=== PATIENT | male | born 1950 | race Caucasian/White ===

== ENCOUNTER → 2018-05-16 08:10 | Outpatient (CLI) | payer MEDICARE, OTHER, SELFPAY ==
[2018-05-16 13:40] LABS: Basophils % 0.8 % (0.1-2.0); Eosinophils # 0.3 K/mm3 (0.0-0.4); Eosinophils % 6.3 % (0.1-12.0); Hematocrit 41.5 % (42.0-52.0); Hemoglobin 12.8 g/dL (14.1-18.0); Lymphocytes # 1.5 K/mm3 (0.7-4.5); Lymphocytes % 30.6 K/mm3 (10-50); Mean Corpuscular HGB Conc 30.9 g/dL (31.8-35.4); Mean Corpuscular Hemoglobin 28.5 pg (27.0-31.2); Mean Corpuscular Volume 92.4 fl (80-94); Mean Platelet Volume 8.2 fl (7.4-10.4); Monocytes # 0.3 K/mm3 (0.1-1.0); Monocytes % 5.4 % (1.7-9.3); Neutrophils # 2.8 K/mm3 (1.8-7.8); Platelet Count 259 K/mm3 (142-424); Red Blood Count 4.49 M/mm3 (4.60-6.20); White Blood Count 4.9 K/mm3 (4.8-10.8)
[2018-05-16 13:58] LABS: Hemoglobin A1C 8.1 % (0.0-7.0)
[2018-05-16 14:07] LABS: Alanine Aminotransferase 45 U/L (12-78); Albumin Level 3.7 gm/dL (3.4-5.0); Albumin/Globulin Ratio 1.4 (1.1-1.8); Alkaline Phosphatase 65 U/L (46-116); Anion Gap 15.9 mEq/L (5-15); Aspartate Amino Transferase 28 U/L (15-37); Bilirubin,Total 0.4 mg/dL (0.2-1.0); Blood Urea Nitrogen 22 mg/dL (7-18); Calcium 8.5 mg/dL (8.5-10.1); Carbon Dioxide 22 mmol/L (21.0-32.0); Chloride 105 mmol/L (98-107); Chol/HDL Ratio 4.2 (1-3.5); Cholesterol 171 mg/dL (140-200); Creatinine,Serum 1.57 mg/dL (0.70-1.30); Estimated Glomerular Filt Rate 44 ml/min (>60); GFR (African American) 53 ML/MIN (>60); Globulin 2.7 gm/dl (1.3-3.2); Glucose 154 mg/dL (74-106); HDL Cholesterol 41 mg/dL (27-67); LDL Cholesterol 110 mg/dL (0-130); Potassium 4.9 mmoL/L (3.5-5.1); Sodium 138 mmol/L (136-145); Thyroid Stimulating Hormone 2.06 uIU/ml (0.358-3.740); Total Protein,Serum 6.4 gm/dL (6.4-8.2); Triglycerides 102 mg/dL (30-200); Uric Acid 4.6 mg/dL (2.6-7.2); VLDL Cholesterol 20 mg/dL (0-40)
[2018-05-17 13:59] LABS: Microalbumin, Urine 47.1 ug/mL (Not Estab.)
== END ==
PROVIDERS: Visit Provider Nurse Practitioner Family
DX: E11.9 Type 2 diabetes mellitus without complications (principal); I10 Essential (primary) hypertension; M10.9 Gout, unspecified
CPT/HCPCS: 36415; 80053; 80061; 82043; 83036; 84443; 84550; 85025

== ENCOUNTER → 2018-12-11 08:43 | Outpatient (CLI) | payer MEDICARE, OTHER, SELFPAY ==
[2018-12-11 14:47] LABS: Basophils # 0.1 K/mm3 (0-0.2); Basophils % 0.8 % (0.1-2.0); Eosinophils # 0.3 K/mm3 (0.0-0.4); Eosinophils % 5.4 % (0.1-12.0); Hematocrit 42.4 % (42.0-52.0); Hemoglobin 13.8 g/dL (14.1-18.0); Lymphocytes # 1.9 K/mm3 (0.7-4.5); Lymphocytes % 34.2 % (10-50); Mean Corpuscular HGB Conc 32.6 g/dL (31.8-35.4); Mean Corpuscular Hemoglobin 29.9 pg (27.0-31.2); Mean Corpuscular Volume 91.8 fl (80-94); Mean Platelet Volume 8.6 fl (7.4-10.4); Monocytes # 0.3 K/mm3 (0.1-1.0); Monocytes % 5.8 % (1.7-9.3); Neutrophils % 53.6 % (37.0-80.0); Platelet Count 292 K/mm3 (142-424); Red Blood Count 4.62 M/mm3 (4.60-6.20); White Blood Count 5.6 K/mm3 (4.8-10.8)
[2018-12-11 15:12] LABS: Alanine Aminotransferase 44 U/L (12-78); Albumin Level 3.8 gm/dL (3.4-5.0); Albumin/Globulin Ratio 1.2 (1.1-1.8); Alkaline Phosphatase 73 U/L (46-116); Anion Gap 18.9 mEq/L (5-15); Aspartate Amino Transferase 21 U/L (15-37); Bilirubin,Total 0.6 mg/dL (0.2-1.0); Blood Urea Nitrogen 34 mg/dL (7-18); Calcium 9.4 mg/dL (8.5-10.1); Carbon Dioxide 23 mmol/L (21.0-32.0); Chloride 101 mmol/L (98-107); Chol/HDL Ratio 5.3 (1-3.5); Cholesterol 216 mg/dL (140-200); Creatinine,Serum 2.08 mg/dL (0.70-1.30); Estimated Glomerular Filt Rate 32 ml/min (>60); GFR (African American) 39 ML/MIN (>60); Globulin 3.1 gm/dl (1.3-3.2); Glucose 304 mg/dL (74-106); HDL Cholesterol 41 mg/dL (27-67); LDL Cholesterol 142 mg/dL (0-130); Potassium 4.9 mmoL/L (3.5-5.1); Sodium 138 mmol/L (136-145); Total Protein,Serum 6.9 gm/dL (6.4-8.2); Triglycerides 163 mg/dL (30-200); VLDL Cholesterol 33 mg/dL (0-40)
[2018-12-12 09:33] LABS: Vitamin B12 350 pg/mL (232-1245)
== END ==
PROVIDERS: PCP Physician Assistant; Visit Provider Physician Assistant
DX: I10 Essential (primary) hypertension (principal); E78.5 Hyperlipidemia, unspecified; R73.03 Prediabetes
CPT/HCPCS: 36415; 80053; 80061; 82607; 83036; 85025

== ENCOUNTER 2020-03-30 13:44 | Emergency (ER) | payer MEDICARE, OTHER, SELFPAY ==
[2020-03-30 14:02] VITALS: BP 118/80; PULSE 130; RESP 20; TEMP 36.9; O2SAT 97; BMI 32.5
--- NOTE | 2020-03-30 14:25 | HMH.EDGENADL ---
ED Disposition Clinical Impression: Otitis media, Fungal infection Disposition: Home, Self-Care Condition on Discharge: Good Instructions: DI for Otitis Media (Middle Ear Infection)-Child Prescriptions: Clotrimazole [Lotrimin 1% Cream 15gm tube] 15 gm TP TID 14 Days #1 tube Prescription Printed Referrals: Jossie Hernandez APRN [Primary Care Provider] - - Critical Care Critical Care Time: No Attestation: On 03/30/20, the high probability of a clinically significant, sudden or life threatening deterioration of the following system(s) required my full and direct attention, intervention and personal management. The time I documented below is in addition to time spent performing reported procedures but includes the following listed in this critical care notation. Medical Decision Making - Medical Records Medical records reviewed: Yes: I reviewed the patient's medical records. - [place] Inquiry Pt receiving controlled substance: No Vital Signs: 03/30/20 14:02 Temperature 98.5 F Temperature Source Oral Pulse Rate [Left Radial] 130 H Respiratory Rate 20 Blood Pressure [Left Arm] 118/80 Blood Pressure Mean [Left Arm] 92 Blood Pressure Source [Left Arm] Automatic Cuff Blood Pressure Position [Left Arm] Sitting 02 Sat by Pulse Oximetry 97 Oxygen Delivery Method Room Air - Lab Data Lab results reviewed: Yes: I reviewed the patient's lab results. General Adult HPI - General Chief complaint: Ear Stated complaint: Check for virus yeast infection on butt Time Seen by Provider: 03/30/20 14:25 Mode of Arrival: Ambulatory Source of Information: Patient Limitations: No Limitations Description of Symptoms (Recalled from ER Triage Doc. by RN): PT C/O CURRENT LT EAR INFECTION THAT HE IS RECEIVING ATB TX FOR AND IT DOESN'T SEEM TO BE IMPROVING. PT ALSO C/O YEAST INFECTION ON HIS BOTTOM CAUSED BY THE ATB. PT ALSO REQUESTING COVID-19 TESTING WHILE IN THE ED D/T INTERMITTENT LOW-GRADE FEVER X3 DAYS. PT DENIES COUGH, SOA, RODRIGUEZ, N/V/D. - History of Present Illness HPI narrative: 69-year-old male presents the ED with complaints about some redness and itchiness on his butt and ear problems and subjective fevers at home. Also the patient would like to be tested for COVID-19. Patient states that he was put on amoxicillin about 3 days ago for an ear infection now he thinks he has allergic reaction to the amoxicillin stating he is got a rash on his anus. Here in the ED has afebrile. Patient denies any nausea vomiting diarrhea, patient denies any objective fevers, patient denies any shortness of breath or cough, patient denies any headache or sore throat, patient denies any general malaise or general fatigue, patient also denies any arthralgias or myalgias, patient denies any loss of smell or loss of taste. - Related Data Previous Rx's Medication Instructions Recorded Clotrimazole [Lotrimin 1% Cream 15 gm TP TID 14 Days #1 tube 03/30/20 15gm tube] Allergies Allergy/AdvReac Type Severity Reaction Status Date / Time No Known Allergies Allergy Unknown Uncoded 11/07/17 15:36 [facility] History - Hepatitis A Screen Drug use history?: No High risk sexual behaviors?: No History of sexually transmitted infection?: No Currently employed?: No Childcare worker?: No Do you have indoor plumbing?: Yes Do you have electricity?: Yes Attestation statement:: This patient has been screened for Hepatitis A risk factors. I have reviewed the patient's past medical history: Yes Medical History: Reports:: Diabetes Mellitus Type 2 Laterality Cases: Left: Total Hip Replacement, Total Knee Replacement - Social History Smoking Status: Never smoker Alcohol Intake: never Occupational Status: retired ROS Obtained: Yes All systems reviewed & no additional complaints - Constitutional Constitutional: Reports system reviewed and no additional complaints, except as docu - Eyes Eyes: Reports system reviewed and no additional complaints,
[2020-03-30 14:40] VITALS: BP 128/76; PULSE 78; RESP 16; TEMP 36.9; O2SAT 98
== END 2020-03-30 14:41 | disposition home or self-care (01) ==
PROVIDERS: Emergency Provider Family Medicine; PCP Nurse Practitioner Family
DX: B49 Unspecified mycosis (principal); H66.90 Otitis media, unspecified, unspecified ear; Z96.642 Presence of left artificial hip joint; Z96.652 Presence of left artificial knee joint
CPT/HCPCS: 99281

== ENCOUNTER 2021-05-20 13:00 | Outpatient (RCR) | payer MEDICARE, OTHER, SELFPAY | END 2021-06-07 15:22 | disposition home or self-care (01) | LOC: PT.CARL 13:00 | PROVIDERS: PCP Nurse Practitioner Family; Visit Provider Orthopaedic Surgery Adult Reconstructive Orthopaedic Surgery | DX: M50.30 Other cervical disc degeneration, unspecified cervical region (principal); M19.011 Primary osteoarthritis, right shoulder | CPT/HCPCS: 97010; 97012; 97014; 97110; 97140; 97163; G0283 ==

== ENCOUNTER 2023-10-25 08:00 | Outpatient (RCR) | payer MEDICARE, OTHER, SELFPAY | END 2023-11-30 16:37 | disposition home or self-care (01) | LOC: PT 08:00 | PROVIDERS: PCP Nurse Practitioner Family; Visit Provider Orthopaedic Surgery Adult Reconstructive Orthopaedic Surgery | DX: M21.372 Foot drop, left foot (principal); G57.32 Lesion of lateral popliteal nerve, left lower limb | CPT/HCPCS: 97014; 97110; 97140; 97163; 97530; G0283 ==

== ENCOUNTER 2024-03-13 09:00 | Outpatient (RCR) | payer MEDICARE, OTHER, SELFPAY ==
--- NOTE | 2024-01-22 12:24 | HMH.PTOPEV ---
PT Outpatient Evaluation Rehab PT Outpatient Evaluation Start: 01/22/24 08:55 Freq: Status: Active Protocol: Document 01/22/24 08:55 PDESEROUX (Rec: 01/22/24 12:24 PDESEROUX [id number]) E-signed By Eric Mello, PT Outpatient Therapy Subjective History Subjective History Pt. is a 73 year old male who presents to [facility] Outpatient Physical Therapy Services in [place] for the initial evaluation this date(01/22/24) w/ c/o acute and constant LLE knee/ankle/ft. edema, stiffness, and weakness S/P LLE CPN Compression Gastrocnemius Recession two weeks ago. Pt. also addressess concern for imbalance and fall risk secondary to increased weakness and instability throughout the LLE ankle/ft. Pt. reports post- surgical complications superficial blood clot that is managed through Aspirin per pt. report. Pt. reports, I don't have the numbness anymore following surgery. Pt . reports being instructed not to be on his feet too much, however, pt. reports not having any assistance from secondary to cognitive deficits. Pt. does report his daughter has provided some assistance w/ rail car repair carman since surgery. Pt. also reports being instructed to don compression garment when he his on his feet until RTMD. Pt. RTMD in a couple of weeks. Pt. also reports recent diagnostic imaging(MRI) positive for a fx. and stressed ligament over lateral portion LLE ankle, however, pt. was unaware of the P! secondary to c/o numbness prior to surgery. Pt. reports his Surgeon states they are healing and does not want to treat at this time , will assess w/ RTMD per pt. report. Current medications include mx. for DM-II(recent change, pt. unable to recall name at this time) and Lisinopril. PMH includes S/P LLE TKA, S/P LLE ALIZA, S/P B/L RC repairs, S/P RLE medial knee surgical incision Melanoma, S/P appendectomy, GERD, DM-II, and HTN. New diagnosis of cancer in past 12 Yes: multiple cryotherapy months? treatments B/L dorsal surface of hands skin cancer Chief Complaint Pain,Stiff,Swelling,Gives out/ Unstable,Weakness Symptom Type Ache,Dull,Burning,Shooting Symptoms Relieved By Rest/Positioning,Ice,Brace/ Support,Prescription Meds Symptoms Aggravated By Standing,Bending/Stooping, Physical Activity,Twisting, Walking Prior Functional Limitations None Current Functional Limitations Standing,Squatting,Recreation Activity,Walking,Stairs, Balance,Bending/Stooping Symptom Description Constant but Variable,Activity Dependent Level of pain today (0-10) 2 Pain scale - at its best (0-10) 1 Pain scale - at its worst (0-10) 6 Ankle/Foot Eval Gait Observation General Gait Pattern Observation Antalgic Gait,Decrease Weight Bear (L),Decrease Stride Lngth (R) Assistive Device Ambulation Assistive Device Straight Cane Palpation Tenderness left Ankle/Foot Palpation Findings Tenderness,Spasm Ankle/Foot Palpation Overall Comment grade 3 +TTP to esa-surgical incisions, gastroc/peroneal mm . ATF TTP positive PTF TTP positive Deltoid ligament TTP positive ROM Ankle/Foot Dorsiflexion w/Knee Extended +19 Active Range Motion (degrees) Ankle/Foot Dorsiflexion w/Knee Extended -5 Passive Range (degrees) Ankle/Foot Plantar Flexion Active Range 31 of Motion (degrees) Ankle/Foot Plantar Flexion Passive Range 35 of Motion (degrees) Ankle/Foot Eversion Active Range of 3 Motion (degrees) Ankle/Foot Eversion Passive Range of 6 Motion (degrees) Ankle/Foot Inversion Active Range of 7 Motion (degrees) Ankle/Foot Inversion Passive Range of 9 Motion (degrees) Ankle/Foot ROM Limitations Soft Tissue Tightness,Muscle Weakness,Muscle Tone Great Toe ROM Reason Not Measured Within Functional Limits Accessory Movements Ankle Accessory Movements that Elicit Fibular Dorsal [place],Fibular Symptoms Ventral [place] MMT left Ankle Dorsiflexion Strength Grade 3 Fair Ankle Plantarflexion Strength Grade 3+ Fair+ Foot Eversion Strength Grade 3 Fair Foot Inversion Strength Grade 3+ Fair+ Ankle Dorsiflexors Muscle Tone Severe Hypertonicity Description Special Tests Ankle Anterior Drawer Test Positive Left Ankle Posterior Drawer Test Positive Left Foot/Heel Tap/Percussion Test Positive Left Neuro tests Achilles Tendon (R) 0 Achilles Tendon (L) 0 normal sensation to monofilament Yes: light touch sensation Outpatient Therapy Assessment Impairments Problems/Impairmments Palpation Tenderness,Impaired Range of Motion,Impaired Strength,Impaired Endurance, Impaired Gait Pattern,Impaired Walking,Impaired Standing, Impaired Stair Climbing, Impaired Incline Stepping, Impaired Stepping on Uneven Surface,Impaired Squatting, Impaired Balance,Increased Edema,Subjective C/O Pain, Impaired Self Care/Self Management Prognosis Rehab Potential Good Comment w/ HEP compliancy Clinical Impression Consistent with Diagnosis Yes Consistent with S/P L CPN Compression Gastroc. rece Short Term Goals Number of Weeks 2 Decreased Palpation Tenderness Yes: grade 1-2 +TTP to TTP assessment above Decrease Subjective C/O Pain Yes: worse:03/29 Patient to be Ind w/ HEP Yes General Education Professor Goals Number of Weeks 6 Decreased Palpation Tenderness Yes: grade 1 +TTP to TTP assessment above Increase Range of Motion Yes: LLE ankle A/PROM 75% norms grossly Increase Strength Yes: 02/22 LLE ankle MMT scores grossly Increase Ability to Walk Yes Increase Ability to Stand Yes: Pt. 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 Improve Ability to Climb Stairs Yes: Pt. will be able to negotiate a flight of stairs IND. Improve Incline Stepping Ability Yes: Pt. will be able to negotiate uneven decline w/o difficulty Improve Balance Yes: Pt. denies falls Improve LEFI Score Yes Decrease Edema Yes: 2-3cm. improvement in fig -8 Decrease Subjective C/O Pain Yes: worse:-12/30 Improve Self Care/Self Management Yes Patient to be Ind w/ Advanced HEP Yes Outpatient Therapy Plan of Care Treatment Plan May Include Therapeutic Exercise Including Home Yes Exercise Program Manual Therapy Techniques Yes Neuromuscular Re-education Yes Therapeutic Activities to Return to Yes Previous Functional/Work Level Gait Training Yes ADL/Self Care Education Yes Thermal Modalities Yes: precaution S/P superficial DVT Electrical Stimulation Yes: precaution S/P superficial DVT Ultrasound/Phonophoresis Yes: precaution S/P superficial DVT Iontophoresis Yes Vasopneumatic Compression Pump Yes Massage Yes Eval/Re-Eval Yes Frequency Times per week 2-3 Duration Number of Weeks 6 Addendums This patient is a candidate for social No or vocational rehab? Patient/Guardian verbally acknowledges Yes understanding of treatment program and consents to further treatment? Patient/Guardian verbally acknowledges Yes understanding of diagnosis, prognosis and goals for treatment? Eval Complexity PT Charges 71251 - Low Complexity Shoulder/Elbow Eval Shoulder Objective Measurements Elbow Objective Measurements PHYSICIAN CERTIFICATION: I certify the specified therapy services for Addison Peguero are required, authorized, and reviewed every 30 days.
== END 2024-03-18 11:30 | disposition home or self-care (01) ==
LOC: PT 09:00
PROVIDERS: Visit Provider Orthopaedic Surgery
DX: S86.112A Strain of other muscle(s) and tendon(s) of posterior muscle group at lower leg level, left leg, initial encounter (principal); Z98.890 Other specified postprocedural states; M62.462 Contracture of muscle, left lower leg
CPT/HCPCS: 97010; 97110; 97112; 97140; 97163; 97164; 97530

== ENCOUNTER 2024-08-13 09:00 | Outpatient (RCR) | payer MEDICARE, OTHER, SELFPAY | END 2024-08-20 11:31 | disposition home or self-care (01) | LOC: PT 09:00 | PROVIDERS: Visit Provider Orthopaedic Surgery Adult Reconstructive Orthopaedic Surgery | DX: M25.531 Pain in right wrist (principal); S52.501A Unspecified fracture of the lower end of right radius, initial encounter for closed fracture | CPT/HCPCS: 97110; 97140; 97163 ==

== ENCOUNTER 2025-05-16 16:30 | Emergency (ER) | payer MEDICARE, OTHER, SELFPAY ==
--- OUTSIDE RECORDS SUMMARY | 2025-03-27 09:30 | XMS_ITS ---
Author Organization [facility] [place] Address [address] [place] [address] Care Team Providers Care Lead Burner Supervisor Name Role Phone FRAKN MATIAS Unavailable [phone] REASON FOR VISIT REF BY CANELO LEWIS FOR CKD Encounters Encounter Location Date Provider Diagnosis [facility] [place] [address] [place] [address] 03/27/2025 FRANK MATIAS Plan Of Treatment No Information Progress Notes * EKATERINA CISNEROSDOB:1950 ( 74 yo M)Acc No.[id number]:03/27/2025 Progress Notes Patient: EKATERINA AMBROCIO Provider: Med MATIAS M.D., F.A.C.P. :1950 A ge:74 Y S ex:Male Date:03/27/2025 Address:[address] [place], [place] [id number] Subjective: * Chief Complaints: * 1 . REF BY CANELO LEWIS FOR CKD. * Medical History: Objective: * Vitals: Assessment: Plan: * Treatment: * * Electronic signature of DOROTHEA MATIAS MD on 05/16/2025 at 04:47 PM EDT Sign off status: Pending * Provider: Med MATIAS M.D., F.A.C.P. Date: 0 03/27/2025 Generated for Chay shi/Minerva/eTbettysmitting on: 0 05/16/2025 04:47 PM EDT
--- OUTSIDE RECORDS SUMMARY | 2025-05-05 15:23 | XMS_ITS | Encounter Summary ---
Author Organization [employer] [facility] [employer] Address [address] [place] [address] Care Team Providers Care Compounding Assistant Name Role Phone Samantha Vallecillo WASHERY BOSS Primary Care Provider [phone] Reason for Referral * Diagnostic X-Ray (Emergency) - Pending Review Specialty Diagnoses / Procedures Referred By Светлана barrios Referred To Contact Diagnoses Calculus of kidney Procedures X-ray abdomen KUB 1 view Derek Madrigal MD [address] [place] [address] [place] [address] Phone: tel: fax: Referral ID Status Reason Start Date Expiration Date V isits Requested Visits Authorized [id number] Pending Review 05/05/2025 05/05/2026 1 1 Reason for Visit * Diagnostic X-Ray (Emergency) - Pending Review Specialty Diagnoses / Procedures Referred By Светлана barrios Referred To Contact Diagnoses Calculus of kidney Procedures X-ray abdomen KUB 1 view Derek Madrigal MD [address] [place] [address] [address] [place] [address] Phone: tel: fax: Referral ID Status Reason Start Date Expiration Date V isits Requested Visits Authorized [id number] Pending Review 05/05/2025 05/05/2026 1 1 Encounter Details Date Type Department Care Team (Late st Contact Info) Description 05/05/2025 3:23 PM EDT - 05/05/2025 11:59 PM EDT Hospital Encounter [facility] Diagnostic [facility] - [place] [address] [place] [address] [address] [place] [address] Derek Madrigal MD [address] [facility] [facility] [facility] [address] [place] [address] Calculus of kidney Discharge Disposition: Home or Self Care Social History Tobacco Use Types Packs/Day Years Used Date Smoking Tobacco: Never Assessed Sex and Gender Information Value Date Recorded Sex Assigned at Not on file Legal Sex Male 7:42 AM INDIVIDUAL PENSION ADVISER Gender Identity Not on file Sexual Orientation Not on file documented as of this encounter Medications at Time of Discharge allopurinoL (ZYLOPRIM) 300 MG tablet daily. aspirin 81 MG EC tablet daily. atorvastatin (LIPITOR) 10 MG tablet Take 1 tablet (10 mg total) by mouth daily. 01/31/2025 famotidine (PEPCID) 20 MG tablet Take 1 tablet (20 mg total) by mouth 2 (two) times daily. glipiZIDE (GLUCOTROL XL) 10 MG 24 hr tablet Take 1 tablet (10 mg total) by mouth daily. 11/21/2024 lisinopriL (ZESTRIL) 10 MG tablet daily. metFORMIN (GLUCOPHAGE-XR) 500 MG 24 hr tablet Two times a day oseltamivir (TAMIFLU) 75 MG capsule Take 1 capsule (75 mg total) by mouth daily. 01/20/2025 pioglitazone (ACTOS) 15 MG tablet Take 1 tablet (15 mg total) by mouth daily. 12/25/2024 tamsulosin (FLOMAX) 0.4 mg cap 24 hr capsule Take 1 capsule twice a day by oral route for 90 days. 01/28/2025 documented as of this encounter Plan of Treatment Not on file documented as of this encounter Procedures Procedure Name Priority Date/Time Associated Diagnosis Comments XR ABDOMEN/KUB 1 VW STAT 05/05/2025 3 :28 PM EDT Calculus of kidney documented in this encounter Results * X-ray abdomen KUB 1 view (05/05/2025 3:28 PM EDT) Anatomical Region Laterality Modality Abdomen X-Ray 05/05/2025 5:02 PM EDT Impressions 05/06/2025 7:04 AM EDT No acute process. Images reviewed, interpreted, and dictated by Dr. Keith Armstrong. Transcribed by Jessa Aldana PA-C. Narrative 05/06/2025 7:04 AM EDT SINGLE VIEW ABDOMEN HISTORY: Kidney stone, gross hematuria. COMPARISON: January 2025. ABDOMEN: Single view of the abdomen demonstrates a nonobstructive bowel gas pattern. There is a left total hip arthroplasty prosthesis identified. There is levoscoliosis of the lumbar spine. Left double-J stent has been removed. There is arterial atherosclerosis. Procedure Note Keith Armstrong MD - 05/06/2025 SINGLE VIEW ABDOMEN HISTORY: Kidney stone, gross hematuria. COMPARISON: January 2025. ABDOMEN: Single view of the abdomen demonstrates a nonobstructive bowel gas pattern. There is a left total hip arthroplasty prosthesis identified. There is levoscoliosis of the lumbar spine. Left double-J stent has been removed. There is arterial atherosclerosis. IMPRESSION: No acute process. Images reviewed, interpreted, and dictated by Dr. Keith Armstrong. Transcribed by Jessa Aldana PA-C. us Derek Madrigal MD [facility] ORDERAB LES Final Result documented in this encounter Visit Diagnoses Diagnosis Calculus of kidney documented in this encounter Care Teams Compounding Assistant Relationship Specialty Start Date End Date Samantha Vallecillo, BONI [address] [place] [address] PCP - General Nurse Practitioner 02/13/25 documented as of this encounter
[2025-05-16] VITALS (8 sets, daily range): BP systolic 100–140; BP diastolic 59–80; PULSE 73–93; RESP 16; TEMP 36.6–36.7; O2SAT 98–99; BMI 31.8
--- OUTSIDE RECORDS SUMMARY | 2025-05-16 16:48 | XMS_ITS | Continuity of Care Document ---
Author Organization [facility] Awa morton [facility] Address [address] [place] [address] Care Team Providers Care Licensed Club Manager Name Role Phone DICK ROBERTS Primary Care Provider CANELO LEWIS Primary Care Provider Assessment Encounter Date Assessment Date Assessment LastModified by Organization Details LastModified Time 05/05/2025 05/05/2025 - 74-year-old male with benign prostatic hyperplasia, nocturia, and urinary incontinence. - Post-void residual urine volume of 66 mL suggests mild incomplete bladder emptying. - History of urolithiasis treated with ESWL, on tamsulosin and solifenacin, with dizziness as a side effect. [email or web address] Not available 05/06/2025 21:22:37 Plan of Treatment Reminders Order Date Submit Date Provider Last Modified By Organization Details Last Modified Time Details Appointments RECHECK 2024 01:30P Ken WELLS MD Not available Not available Not available Lab urinalysi s panel, auto 2024 025 [email or web address] [id number] [facility], [address], [place], [address], 05/05/2025 16:44:04 Referral None recorded. Procedures None recorded. Surgeries None recorded. Imaging None recorded. Medication Orders fesoterod ine ER 8 mg tablet,ex tended release 24 hr 2024 025 KEERTHI [facility], [address] [place], [address], 05/05/2025 16:44:27 Patient TargetsNo targets recorded. Patient Instructions Encounter Date Encounter Id Patient Instructions Last Modified By Organization Details Last Modified Time 05/05/2025 [id number] - Continue takin g tamsulosin as prescribed. - Start new medication, fesoterodine, as directed. - Drink plenty of fluids and reduce salt intake to help prevent kidney stones. [email or web address] Not available 05/05/2025 16:47:13 Reason for Referral None Reported. Results Created Date Observation Date Name Description Value Unit Range Abnormal Flag Note LastModifiedBy Organization Detail LastModifiedTime 05/05/2005/05/2025 urina lysis panel , auto Unknown Analyte Clean Catch Not Available [facility] [address], [place], [address], 05/05/2025 16:22:07 05/05/20 25 05/05/2025 urina lysis panel , auto Unknown Analyte Yellow Not Available [facility] [address] [place] [address] [address], [place], [address], 05/05/2025 16:22:07 05/05/20 25 05/05/2025 urina lysis panel , auto Unknown Analyte Clear Not Available [facility] [address] [facility] [address], [place], [address], 05/05/2025 16:22:07 05/05/20 25 05/05/2025 urina lysis panel , auto Unknown Analyte 1.015 Not Available [facility] [address] [facility] [address], [place], [address], 05/05/2025 16:22:07 05/05/20 25 05/05/2025 urina lysis panel , auto Unknown Analyte 1.003 - 1.030 Not Available [facility] [address], [place], [address], 05/05/2025 16:22:07 05/05/20 25 05/05/2025 urina lysis panel , auto Unknown Analyte 5.0 Not Available [facility] [address], [place], [address], 05/05/2025 16:22:07 05/05/20 25 05/05/2025 urina lysis panel , auto Unknown Analyte 5.0 - 8.0 Not Available [facility] [address], [place], [address], 05/05/2025 16:22:07 05/05/20 25 05/05/2025 urina lysis panel , auto Unknown Analyte Negati ve Not Available [facility] [address], [place], [address], 05/05/2025 16:22:07 05/05/20 25 05/05/2025 urina lysis panel , auto Unknown Analyte Negati ve Not Available [facility] [address], [place], [address], 05/05/2025 16:22:07 05/05/20 25 05/05/2025 urina lysis panel , auto Unknown Analyte Negati ve Not Available [facility] [address], [place], [address], 05/05/2025 16:22:07 05/05/20 25 05/05/2025 urina lysis panel , auto Unknown Analyte Negati ve Not Available [facility] [address], [place], [address], 05/05/2025 16:22:07 05/05/20 25 05/05/2025 urina lysis panel , auto Unknown Analyte Negati ve Not Available [facility] [address], [place], [address], 05/05/2025 16:22:07 05/05/20 25 05/05/2025 urina lysis panel , auto Unknown Analyte Negati ve Not Available [facility] [address], [place], [address], 05/05/2025 16:22:07 05/05/20 25 05/05/2025 urina lysis panel , auto Unknown Analyte Normal Not Available [facility] [address], [place], [address], 05/05/2025 16:22:07 05/05/20 25 05/05/2025 urina lysis panel , auto Unknown Analyte Normal Not Available [facility] [address], [place], [address], 05/05/2025 16:22:07 05/05/20 25 05/05/2025 urina lysis panel , auto Unknown Analyte Negati ve Not Available [facility] [address], [place], [address], 05/05/2025 16:22:07 05/05/20 25 05/05/2025 urina lysis panel , auto Unknown Analyte Negati ve Not Available [facility] [address], [place], [address], 05/05/2025 16:22:07 05/05/20 25 05/05/2025 urina lysis panel , auto Unknown Analyte Normal Not Available [facility] [address], [place], [address], 05/05/2025 16:22:07 05/05/20 25 05/05/2025 urina lysis panel , auto Unknown Analyte Normal Not Available [facility] [address], [place], [address], 05/05/2025 16:22:07 05/05/20 25 05/05/2025 urina lysis panel , auto Unknown Analyte Negati ve Not Available [facility] [address], [place], [address], 05/05/2025 16:22:07 05/05/20 25 05/05/2025 urina lysis panel , auto Unknown Analyte Negati ve Not Available [facility] [address], [place], [address], 05/05/2025 16:22:07 05/05/20 25 05/05/2025 urina lysis panel , auto Unknown Analyte Negati ve Not Available [facility] [address], [place], [address], 05/05/2025 16:22:07 05/05/20 25 05/05/2025 urina lysis panel , auto Unknown Analyte Negati ve Not Available [facility] [address], [place], [address], 05/05/2025 16:22:07 05/07/20 25 05/05/2025 XR, abdom en, 1 view No observ ation record ed. [email or web address] [facility] [address], [place], [address], 05/08/2025 15:48:32 Result Notes None recorded. Problems Name Problem SNOMED Code Status Onset Date Resolution Date Notes Provider Name and Address Organization Details Recorded Time Urolithiasis 42415305 Active 018 Murelene Oscar [facility] 8 13:42:46 Problem Notes None recorded. Procedures Surgical History Date Name Laterality Status Provider Name and Address Organization Details Recorded Time 05/05/20 25 Post Void Residual; Ultrasound completed [facility] 05/05/2025 16:47:03 01/22/20 25 Post Void Residual; Ultrasound completed [facility] 01/21/2025 10:54:51 08/20/20 21 Unlisted px femur/knee completed Murelene Oscar [facility] 09/16/2021 12:54:24 Appendectomy completed Murelene Oscar [facility] 03/16/2017 16:31:38 Kidney Stones completed Murelene Oscar [facility] 03/16/2017 16:31:46 Knee arthroscopy/surg gilbert [facility] 14:13:46 Imaging Results None recorded. Procedure Notes None recorded. Medical Equipment None Reported. Allergies No known drug allergies Medications Name Sig Start Date Stop Date Status Note LastModified by Organization Details LastModified Time Prilosec 40 mg capsule,del ayed release Take 1 capsule every day by oral route. active Not Available Not Available No t Available glipizide ER 5 mg tablet, extended release 24 hr 03/30 completed Instr uctio ns: 2 IN AM 1 AT NIGHT ;Medi catio n Descr iptio n: glipi zide; Route :oral ; refil ls:0 Not Available Not Available Not Available meloxicam 7.5 mg tablet Daily 03/30 completed Frequ ency: daily ;Medi catio n Descr iptio n: melox icam; Dosag e:2; Route :oral ; refil ls:0 Not Available Not Available Not Available Diflucan 100 mg tablet Take 1 tablet every day by oral route for 5 days. 09/16 completed Not Available Not Available Not Available tamsulosin 0.4 mg capsule Take 1 capsule twice a day by oral route for 90 days. 2024 active Not Available Not Available Not Avai lable hydrocodone 7.5 mg-acetamin ophen 325 mg tablet Take 1 tablet every 4 hours by oral route as needed. 03/30 completed Not Available Not Available Not Available lisinopril 10 mg tablet Daily active Frequ ency: daily ;Medi catio n Descr iptio n: lisin opril ; Dosag e:1; Route :oral ; refil ls:0 Not Available Not Available Not Available allopurinol 300 mg tablet Daily active Frequ ency: daily ;Medi catio n Descr iptio n: allop urino l; Dosag e:1; Route :oral ; refil ls:0 Not Available Not Available Not Available aspirin 81 mg tablet Daily active Frequ ency: daily ;Medi catio n Descr iptio n: aspir in; Dosag e:1; Route :oral ; refil ls:0 Not Available Not Available Not Available metformin ER 500 mg tablet,exte nded release 24 hr Two times a day active Frequ ency: bid;M edica tion Descr iptio n: metfo rmin; Route :oral ; refil ls:0 Not Available Not Available Not Available tadalafil 20 mg tablet Take 1 tablet every other day by oral route as needed. 2023 active Not Available Not Available Not Avai lable solifenacin 10 mg tablet Take 1 tablet every day by oral route for 30 days. 05/05 completed Not Available Not Available Not Available sildenafil (pulmonary hypertensio n) 20 mg tablet 1-5 pills as needed 3 hrs prior to activity 03/30 completed Not Available Not Available Not Available fesoterodin e ER 8 mg tablet,exte nded release 24 hr Take 1 tablet every day by oral route for 90 days. 2024 active Not Available Not Available Not Avai lable Vitals Date Recorded Body height Body mass index (BMI) Body weight Provider Name and Address Organization Details Last Updated DateTime 05/05/2025 175.26 cm 31.5 kg/m2 60832.17 g Avelino Villarreal [facility] 05/05/2025 16:46:20 Social History Question Answer Notes LastModified by Organizat ion Details LastModified Time Tobacco Smoking Status Never Smoker Dane Moore [facility] 03/16/2017 16:31:28 What Was The Date Of Your Most Recent Tobacco Screening? 05/05/2025 [email or web address] Information not available 05/05/2025 Sex: Unknown Functional Status Question Answer Note LastModified by Organization D etails LastModified Time What is your level of alcohol consumption? None [email or web address] Information not available 03/16/2017 Mental Status None recorded. Family History Relationship Description Onset Age of this Age Resolved Age Notes LastModified by Organization Details LastModified Time Father No current problems or disability [email or web address] Not available 03/16 16:31:15 Mother No current problems or disability [email or web address] Not available 03/16 16:31:15 Medical History Condition Response Kidney Stones Y Diabetes Y Arthritis Y Sleep Apnea Y Hypertension Y Immunizations Vaccine Type Date Status Note Provider Nam e and Address Organization Details Recorded Time Influenza, adjuvanted, trivalent, PF 7 completed Halie Valdivia [facility] 05/12/2025 16:16:53 Influenza, MDCK, quadrivalent, PF 8 completed aHlie Valdivia [facility] 05/12/2025 16:16:53 zoster recombinant 5 completed Halie Valdivia [facility] 05/12/2025 16:16:53 Influenza, high-dose, quadrivalent, PF 0 completed Halie Valdivia [facility] 05/12/2025 16:16:53 Influenza, high-dose, quadrivalent, PF 1 completed Halie Valdivia [facility] 05/12/2025 16:16:53 Influenza, high-dose, quadrivalent, PF 2 completed Haliehector Valdivia [facility] 05/12/2025 16:16:53 Influenza, high-dose, quadrivalent, PF 3 completed Haliehector Valdivia [facility] 05/12/2025 16:16:53 COVID-19, mRNA, LNP-S, PF, 100 mcg/0.5mL dose or 50 mcg/0.25mL dose 1 completed Halie Valdivia [facility] 05/12/2025 16:16:53 COVID-19, mRNA, LNP-S, PF, 100 mcg/0.5mL dose or 50 mcg/0.25mL dose 1 completed [facility] 05/12/2025 16:16:53 Pneumococcal conjugate PCV 13 8 completed [facility] 05/12/2025 16:16:53 Influenza, high-dose, trivalent, PF 4 completed [facility] 05/12/2025 16:16:53 Past Encounters Encounter ID Performer Location Encounter Start Date Encounter Closed Date Diagnosis/Indication Diagnosis SNOMED-CT Code Diagnosis ICD10 Code Diagnosis Note [id number] CORINA WELLS MD [facility] [address] [place] [address] 05/05/2025 15:31:15 05/05/2025 16:49:56 Benign prostatic hyperplasia with outflow obstruction 910394757 N13.8 N40.1 - Continue tamsulosin 0.8 mg daily.- Discontinu e solifenaci n due to dizziness; initiate fesoterodi ne.- Consider cystscopy if symptoms persist. - Monitor urinary symptoms and adjust medication s as needed. Nocturia 273659908 R35.1 - Addressed with medication adjustment s and monitoring . Kidney stone 17201059 N2 0.0 - Follow-up post-ESWL. Evaluate interventi on outcome and check for recurring symptoms. - Encourage increased fluid intake and dietary modificati ons to prevent recurrence . Health Concerns Section Related Observation LastModified by Organization Detai ls LastModified Time None Recorded Concern Status LastModified by Organization Details LastModified Time None Recorded Payers Encounter Date Sequence Insurance Name Policy Number Policy Muhammad Covered Member ID Muhammad Member ID Guarantor Name 05/05/2025 1 [place]ARE[place] Addison Peguero [id number] Addison Peguero 05/05/2025 2 [employer] (MEDICARE SUPPLEMENT) Addison Peguero [id number] Addison Peguero Notes Date Note Type Note Provider Name and Address Organization Details Recorded Time 05/05/2025 text/html The patient is a 74-year-old male presenting for follow-up evaluation of benign prostatic hyperplasia with lower urinary tract symptoms. He reports worsening nocturia, waking up at least four times a night to urinate. During the day, he experiences urinary incontinence, noticing wetness in his socks and shoes without feeling the urge to urinate. The patient has a history of urolithiasis treated with extracorporeal shock wave lithotripsy (ESWL). He is currently on tamsulosin 0.8 mg daily and solifenacin 10 mg daily, but reports dizziness as a side effect of solifenacin. His post-void residual urine volume is 66 mL, indicating incomplete bladder emptying. - Post-void residual urine volume: 66 mL CORINA WELLS [place], [address], [facility] 05/06/2025 21:24:04
--- OUTSIDE RECORDS SUMMARY | 2025-05-16 16:48 | XMS_ITS | Data Portability ---
Author Organization [facility] - [place] & CHAPO Esparza ADMIN Address [address] [place] [id number] Care Team Providers Care Academic Assistant Name Role Phone MATTHEW ROBERTS Primary Care Provider [phone] Assessment Encounter Date Assessment Date Assessment LastModified by Organization Details LastModified Time 10/23/2023 10/23/2023 PATIENT TO CONTINUE WITH CURRENT MANAGEMENT. WE HAVE HAD EXTENSIVE DISCUSSIONS REGARDING CHRONIC ISSUES. WILL CALL PATIENT TO DISCUSS RESULTS OF LAB WORK AND MAKE PLANS BASED ON FINDINGS. [email or web address] Not available 10/23/2023 09:46:45 03/25/2024 03/25/2024 PATIENT TO CONTINUE WITH CURRENT MANAGEMENT. WE HAVE HAD EXTENSIVE DISCUSSIONS REGARDING CHRONIC ISSUES. WILL CALL PATIENT TO DISCUSS RESULTS OF LAB WORK AND MAKE PLANS BASED ON FINDINGS. [email or web address] Not available 03/25/2024 09:38:11 Plan of Treatment Reminders Order Date Submit Date Provider Last Modified By Organization Details Last Modified Time Details Appointments None recorded. Lab hemoglobin A1c + average glucose, QN, blood 2023 024 [email or web address] [facility] (Laboratory), [address] [place], [address], 09:45:52 CBC w/ auto diff 2023 024 [facility] (Laboratory), [address] [place], [address], 4 13:38:29 lipid panel, serum 2023 024 [facility] (Laboratory), [address] [place], [address], 4 13:47:38 CMP, serum or plasma 2023 024 [facility] (Laboratory), [address] [place], [address], 4 13:46:33 CMP, serum or plasma 2023 024 [facility] (Laboratory), [address] [place], [address], 4 14:18:35 CBC w/ auto diff 2023 024 [facility] (Laboratory), [address] [place], [address], 4 13:21:00 hemoglobin A1c + average glucose, QN, blood 2023 024 [facility] (Laboratory), [address] [place], [address], 4 08:07:57 TSH, serum or plasma 2023 024 [facility] (Laboratory), [address] [place], [address], 4 14:18:33 lipid panel, serum 2023 024 [facility] (Laboratory), [address] [place], [address], 4 14:18:37 CMP, serum or plasma 2022 023 [facility] (Laboratory), [address] [place], [address], 3 12:08:17 CBC w/ auto diff 2022 023 [facility] (Laboratory), [address] [place], [address], 3 10:52:20 hemoglobin A1c + average glucose, QN, [email or web address] [address] [place], [address], 3 08:09:25 lipid panel, serum 2022 023 [facility] (Laboratory), [address] [place], [address], 3 12:08:19 Referral None recorded. Procedures None recorded. Surgeries None recorded. Imaging None recorded. Medication Orders allopurinol 100 mg tablet 2023 024 [facility], [address] [place] [address], [address], 4 16:10:09 glipizide ER 10 mg tablet, extended release 24 hr 2023 024 [facility], [facility] [place], [address], 4 10:58:15 pioglitazon e 15 mg tablet 2023 024 [facility], [facility] [place], [address], 4 10:58:17 famotidine 20 mg tablet 2023 024 [facility], [facility] [place], [address], 4 16:10:06 aspirin 81 mg tablet,reggie yed release 2023 024 [facility], [facility] [place], [address], 4 10:58:11 lisinopril 20 mg-hydrochl orothiazide 12.5 mg tablet 2023 024 [facility], [address] [place] [address], [place], [address], 4 16:10:10 tamsulosin 0.4 mg capsule 2023 [facility], [address] [place], [address], 16:10:12 allopurinol 100 mg tablet 2023 [facility], [address] [place] [address], [address], 4 11:25:37 glipizide ER 10 mg tablet, extended release 24 hr 2023 [facility], [address] [place] [address], [address], 4 11:25:36 famotidine 20 mg tablet 2023 [facility], [address] [place] [address], [address], 4 11:25:36 lisinopril 20 mg-hydrochl orothiazide 12.5 mg tablet 2023 024 [facility], [address] [place] [address], [address], 4 11:25:34 tamsulosin 0.4 mg capsule 2023 024 [facility], [address] [place] [address], [address], 4 11:25:35 Patient TargetsNo targets recorded. Patient InstructionsNo instructions recorded. Reason for Referral None Reported. Results Created Date Observation Date Name Description Value Unit Range Abnormal Flag Note LastModifiedBy Organization Detail LastModifiedTime 10/23/20 23 10/23/2023 CBC AUTO W DIFF WBC 6.2 10 4.5-11 .5 Not Available [facility] (Lab Registration) [address], [place], [address], 10/23/2023 10:52:20 10/23/20 23 10/23/2023 CBC AUTO W DIFF RBC 4.07 10 4.25-5 .57 low Not Available [facility] (Lab Registration) [address] [place], [address], 10/23/2023 10:52:20 10/23/20 23 10/23/2023 CBC AUTO W DIFF HGB 12.7 g/dL 13.5-1 7.2 low Not Available [facility] (Lab Registration) [address] [place], [address], 10/23/2023 10:52:20 10/23/20 23 10/23/2023 CBC AUTO W DIFF HCT 39.2 % 42.0-5 2.0 low Not Available [facility] (Lab Registration) [address] [place], [address], 10/23/2023 10:52:20 10/23/20 23 10/23/2023 CBC AUTO W DIFF MCV 96.3 fL 80-95 high Not Available [facility] (Lab Registration) [address] [place], [address], 10/23/2023 10:52:20 10/23/20 23 10/23/2023 CBC AUTO W DIFF MCH 31.2 pg 27.0-3 4.0 Not Available [facility] (Lab Registration) [address] [place], [address], 10/23/2023 10:52:20 10/23/20 23 10/23/2023 CBC AUTO W DIFF MCHC 32.4 g/dL 32.0-3 6.0 Not Available [facility] (Lab Registration) [address] [place], [address], 10/23/2023 10:52:20 10/23/20 23 10/23/2023 CBC AUTO W DIFF platelet count 251 10 150-45 0 Not Available [facility] (Lab Registration) [address], [place], [address], 10/23/2023 10:52:20 10/23/20 23 10/23/2023 CBC AUTO W DIFF RDW 13.4 % 12.3-1 5.1 Not Available [facility] (Lab Registration) [address] [place], [address], 10/23/2023 10:52:20 10/23/20 23 10/23/2023 CBC AUTO W DIFF MPV 10.5 fL 7.4-10 .4 high Not Available [facility] (Lab Registration) [address], [place], [address], 10/23/2023 10:52:20 10/23/20 23 10/23/2023 CBC AUTO W DIFF granulocyte% 66.2 % 40-75 Not Available [facility] (Lab Registration) [address] [place], [address], 10/23/2023 10:52:20 10/23/20 23 10/23/2023 CBC AUTO W DIFF lymphocyte% 23.5 % 15-57 Not Available [facility] (Lab Registration) [address] [place], [address], 10/23/2023 10:52:20 10/23/20 23 10/23/2023 CBC AUTO W DIFF monocyte% 6.4 % 4.0-12 .0 Not Available [facility] (Lab Registration) [address] [place], [address], 10/23/2023 10:52:20 10/23/20 23 10/23/2023 CBC AUTO W DIFF eosinophil% 3.2 % 0.0-4. 0 Not Available [facility] (Lab Registration) [address] [place], [address], 10/23/2023 10:52:20 10/23/20 23 10/23/2023 CBC AUTO W DIFF basophil% 0.5 % 0.0-1. 0 Not Available [facility] (Lab Registration) [address] [place], [address], 10/23/2023 10:52:20 10/23/20 23 10/23/2023 CBC AUTO W DIFF immature granulocytes % 0.2 % 0.0-0. 8 Not Available [facility] (Lab Registration) [address] [place], [address], 10/23/2023 10:52:20 10/23/20 23 10/23/2023 CBC AUTO W DIFF granulocyte# 4.12 10 Not Available [facility] (Lab Registration) [address] [place], [address], 10/23/2023 10:52:20 10/23/20 23 10/23/2023 CBC AUTO W DIFF lymphocyte# 1.46 10 Not Available [facility] (Lab Registration) [address] [place], [address], 10/23/2023 10:52:20 10/23/20 23 10/23/2023 CBC AUTO W DIFF monocyte# 0.40 10 Not Available [facility] (Lab Registration) [address] [place], [address], 10/23/2023 10:52:20 10/23/20 23 10/23/2023 CBC AUTO W DIFF eosinophil# 0.20 10 Not Available [facility] (Lab Registration) [address] [place], [address], 10/23/2023 10:52:20 10/23/20 23 10/23/2023 CBC AUTO W DIFF basophil# 0.03 10 Not Available [facility] (Lab Registration) [address] [place], [address], 10/23/2023 10:52:20 10/23/20 23 10/23/2023 CBC AUTO W DIFF immature granulocytes # 0.01 10 Not Available [facility] (Lab Registration) [address] [place], [address], 10/23/2023 10:52:20 10/23/20 23 10/23/2023 CBC AUTO W DIFF manual differential NO Not Available [facility] (Lab Registration) [address] [place], [address], 10/23/2023 10:52:20 10/23/20 23 10/23/2023 CBC AUTO W DIFF note Unles s other bowles noted testi ng perfo rmed at: [facility] [address] [place] [address] [phone] Wesley anaya MD CLIA: [id number] Not Available [facility] (Lab Registration) [address], [place], [address], 10/23/2023 10:52:20 10/23/20 23 10/23/2023 COMP METAB OLIC PANEL sodium 139 mmol/ L 136-14 5 Not Available [facility] (Lab Registration) [address], [place], [address], 10/23/2023 12:08:17 10/23/20 23 10/23/2023 COMP METAB OLIC PANEL potassium 4.8 mmol/ L 3.5-5. 1 Not Available [facility] (Lab Registration) [address] [place], [address], 10/23/2023 12:08:17 10/23/20 23 10/23/2023 COMP METAB OLIC PANEL chloride 104 mmol/ L 98-107 Not Available [facility] (Lab Registration) [address] [place], [address], 10/23/2023 12:08:17 10/23/20 23 10/23/2023 COMP METAB OLIC PANEL carbon dioxide 26 mmol/ L 21-32 Not Available [facility] (Lab Registration) [address] [place], [address], 10/23/2023 12:08:17 10/23/20 23 10/23/2023 COMP METAB OLIC PANEL anion gap 9.0 Not Available [facility] (Lab Registration) [address] [place], [address], 10/23/2023 12:08:17 10/23/20 23 10/23/2023 COMP METAB OLIC PANEL glucose 251 mg/dL 70-110 high Not Available [facility] (Lab Registration) [address] [place], [address], 10/23/2023 12:08:17 10/23/20 23 10/23/2023 COMP METAB OLIC PANEL blood urea nitrogen 33 mg/dL 7-18 high Not Available [facility] (Lab Registration) [address] [place], [address], 10/23/2023 12:08:17 10/23/20 23 10/23/2023 COMP METAB OLIC PANEL creatinine 1.9 mg/dL 0.8-1. 3 high Not Available [facility] (Lab Registration) [address] [place], [address], 10/23/2023 12:08:17 10/23/20 23 10/23/2023 COMP METAB OLIC PANEL BUN/creatini ne ratio 17.4 ratio 9-21 Not Available [facility] (Lab Registration) [address] [place], [address], 10/23/2023 12:08:17 10/23/20 23 10/23/2023 COMP METAB OLIC PANEL estimated glom filtration rate 37 mL/mi n >60- low Not Available [facility] (Lab Registration) [address] [place], [address], 10/23/2023 12:08:17 10/23/20 23 10/23/2023 COMP METAB OLIC PANEL total protein 6.9 g/dL 6.4-8. 2 Not Available [facility] (Lab Registration) [address] [place], [address], 10/23/2023 12:08:17 10/23/20 23 10/23/2023 COMP METAB OLIC PANEL albumin 3.9 g/dL 3.4-5. 0 Not Available [facility] (Lab Registration) [address] [place], [address], 10/23/2023 12:08:17 10/23/20 23 10/23/2023 COMP METAB OLIC PANEL calcium 9.8 mg/dL 8.5-10 .1 Not Available [facility] (Lab Registration) [address] [place], [address], 10/23/2023 12:08:17 10/23/20 23 10/23/2023 COMP METAB OLIC PANEL corrected calcium 9.9 mg/dL 8.5-10 .1 Not Available [facility] (Lab Registration) [address] [place], [address], 10/23/2023 12:08:17 10/23/20 23 10/23/2023 COMP METAB OLIC PANEL bilirubin total 0.8 mg/dL 0.4-1. 5 Not Available [facility] (Lab Registration) [address] [place], [address], 10/23/2023 12:08:17 10/23/20 23 10/23/2023 COMP METAB OLIC PANEL AST (SGOT) 23 U/L 15-37 Not Available [facility] (Lab Registration) [address] [place], [address], 10/23/2023 12:08:17 10/23/20 23 10/23/2023 COMP METAB OLIC PANEL ALT (SGPT) 35 U/L 12-78 Not Available [facility] (Lab Registration) [address] [place], [address], 10/23/2023 12:08:17 10/23/20 23 10/23/2023 COMP METAB OLIC PANEL alk phosphatase 91 U/L Not Available [facility] (Lab Registration) [address] [place], [address], 10/23/2023 12:08:17 10/23/20 23 10/23/2023 COMP METAB OLIC PANEL note Unles s other bowles noted testi ng perfo rmed at: [facility] [address] [place] [address] [phone] Wesley anaya MD CLIA: [id number] Not Available [facility] (Lab Registration) [address] , [place], [address], 10/23/2023 12:08:17 10/23/20 23 10/23/2023 LIPID PANEL triglyceride 86 mg/dL 20-200 The [employer] t[employer] am (NCEP ) has set the follo wing guide lines for Fasti ng Trigl yceri selvin: ADAMARIS L: <150 mg/dL BORDE RLINE HIGH: 150 - 199 mg/dL HIGH: 200 - 499 mg/dL VERY HIGH: > or =500 mg/dL Not Available [facility] (Lab Registration) [address] [place], [address], 10/23/2023 12:08:19 10/23/20 23 10/23/2023 LIPID PANEL cholesterol 228 mg/dL 0-200 high The [employer]io n[employer] l [employer]ca t[employer] am (NCEP ) has set the follo wing guide lines for Fasti ng Susi stero l: SELAM ABLE: <200 mg/dL BORDE RLINE HIGH: 200 - 239 mg/dL HIGH: > or =240 mg/dL Not Available [facility] (Lab Registration) [address] [place], [address], 10/23/2023 12:08:19 10/23/2010/23/2023 LIPID PANEL HDL cholesterol 72 mg/dL 60- The [employer]io n[employer] l [employer]ca t[employer]gr am (NCEP ) has set the follo wing guide lines for Fasti ng HDL Susi stero l: LOW HDL: <40 mg/dL ADAMARIS L: 40 - 60 mg/dL SELAM ABLE: >60 mg/dL Not Available [facility] (Lab Registration) [address] [place], [address], 10/23/2023 12:08:19 10/23/20 23 10/23/2023 LIPID PANEL LDL calculated 139 mg/dL 100- The [employer]io n[employer] l [employer]ca t[employer]gr am (NCEP ) has set the follo wing guide lines for Fasti ng LDL Susi stero l: OPTIM AL: < 100 mg/dL LOW RISK: 100 - 129 mg/dL BORDE RLINE HIGH: 130 - 159 mg/dL HIGH: 160 - 189 mg/dL VERY HIGH: > or = 190 mg/dL Not Available [facility] (Lab Registration) [address] [place], [address], 10/23/2023 12:08:19 10/23/20 23 10/23/2023 LIPID PANEL chol/HDL ratio 3 ratio -5 Not Available [facility] (Lab Registration) [address] [place], [address], 10/23/2023 12:08:19 10/23/20 23 10/23/2023 LIPID PANEL note Unles s other bowles noted testi ng perfo rmed at: [facility] [address] [place] [address] [phone] Wesley anaya MD CLIA: [id number] Not Available [facility] (Lab Registration) [address] [place], [address], 10/23/2023 12:08:19 10/23/20 23 10/23/2023 HEMOG LOBIN A1C glycosylated hemoglobin A1C 9.8 % 4.5-6. 2 high Not Available [facility] (Lab Registration) [address] [place], [address], 10/23/2023 13:29:42 10/23/20 23 10/23/2023 HEMOG LOBIN A1C estimated average glucose 235 mg/dL 82-131 high Not Available [facility] (Lab Registration) [address] [place], [address], 10/23/2023 13:29:42 10/23/20 23 10/23/2023 HEMOG LOBIN A1C note Unles s other bowles noted testi ng perfo rmed at: [facility] [address] [place] [address] [phone] Wesley anaya MD CLIA: [id number] Not Available [facility] (Lab Registration) [address] [place], [address], 10/23/2023 13:29:42 01/29/20 24 01/29/2024 CBC AUTO W DIFF WBC 7.5 10 4.5-11 .5 Not Available [facility] (Lab Registration) [address] [place], [address], 01/29/2024 13:21:00 01/29/20 24 01/29/2024 CBC AUTO W DIFF RBC 4.49 10 4.25-5 .57 Not Available [facility] (Lab Registration) [address] [place], [address], 01/29/2024 13:21:00 01/29/20 24 01/29/2024 CBC AUTO W DIFF HGB 13.4 g/dL 13.5-1 7.2 low Not Available [facility] (Lab Registration) [address] [place], [address], 01/29/2024 13:21:00 01/29/20 24 01/29/2024 CBC AUTO W DIFF HCT 41.4 % 42.0-5 2.0 low Not Available [facility] (Lab Registration) [address] [place], [address], 01/29/2024 13:21:00 01/29/20 24 01/29/2024 CBC AUTO W DIFF MCV 92.2 fL 80-95 Not Available [facility] (Lab Registration) [address] [place], [address], 01/29/2024 13:21:00 01/29/20 24 01/29/2024 CBC AUTO W DIFF MCH 29.8 pg 27.0-3 4.0 Not Available [facility] (Lab Registration) [address] [place], [address], 01/29/2024 13:21:00 01/29/20 24 01/29/2024 CBC AUTO W DIFF MCHC 32.4 g/dL 32.0-3 6.0 Not Available [facility] (Lab Registration) [address] [place], [address], 01/29/2024 13:21:00 01/29/20 24 01/29/2024 CBC AUTO W DIFF platelet count 263 10 150-45 0 Not Available [facility] (Lab Registration) [address] [place], [address], 01/29/2024 13:21:00 01/29/20 24 01/29/2024 CBC AUTO W DIFF RDW 13.2 % 12.3-1 5.1 Not Available [facility] (Lab Registration) [address] [place], [address], 01/29/2024 13:21:00 01/29/20 24 01/29/2024 CBC AUTO W DIFF MPV 10.7 fL 7.4-10 .4 high Not Available [facility] (Lab Registration) [address] [place], [address], 01/29/2024 13:21:00 01/29/20 24 01/29/2024 CBC AUTO W DIFF granulocyte% 68.6 % 40-75 Not Available [facility] (Lab Registration) [address] [place], [address], 01/29/2024 13:21:00 01/29/20 24 01/29/2024 CBC AUTO W DIFF lymphocyte% 22.0 % 15-57 Not Available [facility] (Lab Registration) [address] [place], [address], 01/29/2024 13:21:00 01/29/20 24 01/29/2024 CBC AUTO W DIFF monocyte% 5.8 % 4.0-12 .0 Not Available [facility] (Lab Registration) [address] [place], [address], 01/29/2024 13:21:00 01/29/20 24 01/29/2024 CBC AUTO W DIFF eosinophil% 2.5 % 0.0-4. 0 Not Available [facility] (Lab Registration) [address] [place], [address], 01/29/2024 13:21:00 01/29/20 24 01/29/2024 CBC AUTO W DIFF basophil% 0.8 % 0.0-1. 0 Not Available [facility] (Lab Registration) [address] [place], [address], 01/29/2024 13:21:00 01/29/20 24 01/29/2024 CBC AUTO W DIFF immature granulocytes % 0.3 % 0.0-0. 8 Not Available [facility] (Lab Registration) [address] [place], [address], 01/29/2024 13:21:00 01/29/20 24 01/29/2024 CBC AUTO W DIFF granulocyte# 5.12 10 Not Available [facility] (Lab Registration) [address] [place], [address], 01/29/2024 13:21:00 01/29/20 24 01/29/2024 CBC AUTO W DIFF lymphocyte# 1.64 10 Not Available [facility] (Lab Registration) [address] [place], [address], 01/29/2024 13:21:00 01/29/20 24 01/29/2024 CBC AUTO W DIFF monocyte# 0.43 10 Not Available [facility] (Lab Registration) [address] [place], [address], 01/29/2024 13:21:00 01/29/20 24 01/29/2024 CBC AUTO W DIFF eosinophil# 0.19 10 Not Available [facility] (Lab Registration) [address] [place], [address], 01/29/2024 13:21:00 01/29/20 24 01/29/2024 CBC AUTO W DIFF basophil# 0.06 10 Not Available [facility] (Lab Registration) [address] [place], [address], 01/29/2024 13:21:00 01/29/20 24 01/29/2024 CBC AUTO W DIFF immature granulocytes # 0.02 10 Not Available [facility] (Lab Registration) [address] [place], [address], 01/29/2024 13:21:00 01/29/20 24 01/29/2024 CBC AUTO W DIFF manual differential NO Not Available [facility] (Lab Registration) [address] [place], [address], 01/29/2024 13:21:00 01/29/20 24 01/29/2024 CBC AUTO W DIFF note Unles s other bowles noted testi ng perfo rmed at: [facility] [address] [place] [address] [phone] Wesley anaya MD CLIA: [id number] Not Available [facility] (Lab Registration) [address] [place], [address], 01/29/2024 13:21:00 01/29/20 24 01/29/2024 HEMOG LOBIN A1C glycosylated hemoglobin A1C 8.3 % 4.5-6. 2 high Not Available [facility] (Lab Registration) [address] [place], [address], 01/29/2024 14:17:27 01/29/20 24 01/29/2024 HEMOG LOBIN A1C estimated average glucose 192 mg/dL 82-131 high Not Available [facility] (Lab Registration) [address] [place], [address], 01/29/2024 14:17:27 01/29/20 24 01/29/2024 HEMOG LOBIN A1C note Brian anaya other bowles noted testi ng perfo rmed at: [facility] [address] [place] [address] [phone] Wesley anaya MD CLIA: [id number] Not Available [facility] (Lab Registration) [address], [place], [address], 01/29/2024 14:17:27 01/29/20 24 01/29/2024 THYRO ID STIMU LATIN G HORMO NE thyroid stimulating hormone 1.60 mIU/m L 0.34-4 .80 Not Available [facility] (Lab Registration) [address] [place], [address], 01/29/2024 14:18:33 01/29/20 24 01/29/2024 THYRO ID STIMU LATIN G HORMO NE note Brian chicas bowles noted testi ng perfo rmed at: [facility] [address] [place] [address] [phone] Wesley anaya MD CLIA: [id number] Not Available [facility] (Lab Registration) [address], [place], [address], 01/29/2024 14:18:33 01/29/20 24 01/29/2024 COMP METAB OLIC PANEL sodium 138 mmol/ L 136-14 5 Not Available [facility] (Lab Registration) [address], [place], [address], 01/29/2024 14:18:35 01/29/20 24 01/29/2024 COMP METAB OLIC PANEL potassium 5.3 mmol/ L 3.5-5. 1 high Not Available [facility] (Lab Registration) [address] [place], [address], 01/29/2024 14:18:35 01/29/20 24 01/29/2024 COMP METAB OLIC PANEL chloride 104 mmol/ L 98-107 Not Available [facility] (Lab Registration) [address] [place], [address], 01/29/2024 14:18:35 01/29/20 24 01/29/2024 COMP METAB OLIC PANEL carbon dioxide 21 mmol/ L 21-32 Not Available [facility] (Lab Registration) [address] [place], [address], 01/29/2024 14:18:35 01/29/20 24 01/29/2024 COMP METAB OLIC PANEL anion gap 13.0 Not Available [facility] (Lab Registration) [address] [place], [address], 01/29/2024 14:18:35 01/29/20 24 01/29/2024 COMP METAB OLIC PANEL glucose 123 mg/dL 70-110 high Not Available [facility] (Lab Registration) [address] [place], [address], 01/29/2024 14:18:35 01/29/20 24 01/29/2024 COMP METAB OLIC PANEL blood urea nitrogen 45 mg/dL 7-18 high Not Available [facility] (Lab Registration) [address] [place], [address], 01/29/2024 14:18:35 01/29/20 24 01/29/2024 COMP METAB OLIC PANEL creatinine 2.0 mg/dL 0.8-1. 3 high Not Available [facility] (Lab Registration) [address] [place], [address], 01/29/2024 14:18:35 01/29/20 24 01/29/2024 COMP METAB OLIC PANEL BUN/creatini ne ratio 22.5 ratio 9-21 high Not Available [facility] (Lab Registration) [address], [place], [address], 01/29/2024 14:18:35 01/29/20 24 01/29/2024 COMP METAB OLIC PANEL estimated glom filtration rate 35 mL/mi n >60- low Not Available [facility] (Lab Registration) [address] [place], [address], 01/29/2024 14:18:35 01/29/20 24 01/29/2024 COMP METAB OLIC PANEL total protein 6.8 g/dL 6.4-8. 2 Not Available [facility] (Lab Registration) [address] [place], [address], 01/29/2024 14:18:35 01/29/20 24 01/29/2024 COMP METAB OLIC PANEL albumin 3.8 g/dL 3.4-5. 0 Not Available [facility] (Lab Registration) [address] [place], [address], 01/29/2024 14:18:35 01/29/20 24 01/29/2024 COMP METAB OLIC PANEL calcium 9.9 mg/dL 8.5-10 .1 Not Available [facility] (Lab Registration) [address] [place], [address], 01/29/2024 14:18:35 01/29/20 24 01/29/2024 COMP METAB OLIC PANEL corrected calcium 10.1 mg/dL 8.5-10 .1 Not Available [facility] (Lab Registration) [address] [place], [address], 01/29/2024 14:18:35 01/29/20 24 01/29/2024 COMP METAB OLIC PANEL bilirubin total 0.7 mg/dL 0.4-1. 5 Not Available [facility] (Lab Registration) [address] [place], [address], 01/29/2024 14:18:35 01/29/20 24 01/29/2024 COMP METAB OLIC PANEL AST (SGOT) 27 U/L 15-37 Not Available [facility] (Lab Registration) [address], [place], [address], 01/29/2024 14:18:35 01/29/20 24 01/29/2024 COMP METAB OLIC PANEL ALT (SGPT) 43 U/L 12-78 Not Available [facility] (Lab Registration) [address] [place], [address], 01/29/2024 14:18:35 01/29/20 24 01/29/2024 COMP METAB OLIC PANEL alk phosphatase 82 U/L Not Available [facility] (Lab Registration) [address] [place], [address], 01/29/2024 14:18:35 01/29/20 24 01/29/2024 COMP METAB OLIC PANEL note Unles s other bowles noted testi ng perfo rmed at: [facility] [place] [address] [phone] Wesley anaya MD CLIA: [id number] Not Available [facility] (Lab Registration) [address] [place], [address], 01/29/2024 14:18:35 01/29/20 24 01/29/2024 LIPID PANEL triglyceride 46 mg/dL 20-200 The Natio nal Susi st[employer] l [employer]ca tion Progr am (NCEP ) has set the follo wing guide lines for Fasti ng Trigl yceri selvin: ADAMARIS L: <150 mg/dL BORDE RLINE HIGH: 150 - 199 mg/dL HIGH: 200 - 499 mg/dL VERY HIGH: > or =500 mg/dL Not Available [facility] (Lab Registration) [address] [place], [address], 01/29/2024 14:18:37 01/29/20 24 01/29/2024 LIPID PANEL cholesterol 207 mg/dL 0-200 high The Natio nal Susi stero l Educa tion Progr am ([facility] ) has set the follo wing guide lines for Fasti ng Susi stero l: SELAM ABLE: <200 mg/dL BORDE RLINE HIGH: 200 - 239 mg/dL HIGH: > or =240 mg/dL Not Available [facility] (Lab Registration) [address], [place], [address], 01/29/2024 14:18:37 01/29/20 24 01/29/2024 LIPID PANEL HDL cholesterol 81 mg/dL 60- The Natio nal Susi stero l Educa tion Progr am ([employer] ) has set the follo wing guide lines for Fasti ng HDL Susi stero l: LOW HDL: <40 mg/dL ADAMARIS L: 40 - 60 mg/dL SELAM ABLE: >60 mg/dL Not Available [facility] (Lab Registration) [address], [place], [address], 01/29/2024 14:18:37 01/29/20 24 01/29/2024 LIPID PANEL LDL calculated 117 mg/dL 100- The Natio nal Susi stero l Educa tion Progr am ([facility] ) has set the follo wing guide lines for Fasti ng LDL Susi stero l: OPTIM AL: < 100 mg/dL LOW RISK: 100 - 129 mg/dL BORDE RLINE HIGH: 130 - 159 mg/dL HIGH: 160 - 189 mg/dL VERY HIGH: > or = 190 mg/dL Not Available [facility] (Lab Registration) [address], [place], [address], 01/29/2024 14:18:37 01/29/20 24 01/29/2024 LIPID PANEL chol/HDL ratio 3 ratio -5 Not Available [facility] (Lab Registration) [address] [place], [address], 01/29/2024 14:18:37 01/29/20 24 01/29/2024 LIPID PANEL note Unles s other bowles noted testi ng perfo rmed at: [facility] [address] [place] [address] [phone] Wesley anaya MD CLIA: [id number] Not Available [facility] (Lab Registration) [address] [place], [address], 01/29/2024 14:18:37 03/25/20 24 03/25/2024 HEMOG LOBIN A1C glycosylated hemoglobin A1C 7.6 % 4.5-6. 2 high Not Available [facility] (Lab Registration) [address] [place], [address], 03/25/2024 13:36:12 03/25/20 24 03/25/2024 HEMOG LOBIN A1C estimated average glucose 171 mg/dL 82-131 high Not Available [facility] (Lab Registration) [address] [place], [address], 03/25/2024 13:36:12 03/25/20 24 03/25/2024 HEMOG LOBIN A1C note Unles s other bowles noted testi ng perfo rmed at: [facility] [address] [place] [address] [phone] Wesley anaya MD CLIA: [id number] Not Available [facility] (Lab Registration) [address] [place], [address], 03/25/2024 13:36:12 03/25/20 24 03/25/2024 CBC AUTO W DIFF WBC 5.4 10 4.5-11 .5 Not Available [facility] (Lab Registration) [address] [place], [address], 03/25/2024 13:38:29 03/25/20 24 03/25/2024 CBC AUTO W DIFF RBC 4.32 10 4.25-5 .57 Not Available [facility] (Lab Registration) [address] [place], [address], 03/25/2024 13:38:29 03/25/20 24 03/25/2024 CBC AUTO W DIFF HGB 13.1 g/dL 13.5-1 7.2 low Not Available [facility] (Lab Registration) [address] [place], [address], 03/25/2024 13:38:29 03/25/20 24 03/25/2024 CBC AUTO W DIFF HCT 40.0 % 42.0-5 2.0 low Not Available [facility] (Lab Registration) [address] [place], [address], 03/25/2024 13:38:29 03/25/20 24 03/25/2024 CBC AUTO W DIFF MCV 92.6 fL 80-95 Not Available [facility] (Lab Registration) [address] [place], [address], 03/25/2024 13:38:29 03/25/20 24 03/25/2024 CBC AUTO W DIFF MCH 30.3 pg 27.0-3 4.0 Not Available [facility] (Lab Registration) [address] [place], [address], 03/25/2024 13:38:29 03/25/20 24 03/25/2024 CBC AUTO W DIFF MCHC 32.8 g/dL 32.0-3 6.0 Not Available [facility] (Lab Registration) [address] [place], [address], 03/25/2024 13:38:29 03/25/20 24 03/25/2024 CBC AUTO W DIFF platelet count 262 10 150-45 0 Not Available [facility] (Lab Registration) [address] [place], [address], 03/25/2024 13:38:29 03/25/20 24 03/25/2024 CBC AUTO W DIFF RDW 13.5 % 12.3-1 5.1 Not Available [facility] (Lab Registration) [address] [place], [address], 03/25/2024 13:38:29 03/25/20 24 03/25/2024 CBC AUTO W DIFF MPV 10.7 fL 7.4-10 .4 high Not Available [facility] (Lab Registration) [address] [place], [address], 03/25/2024 13:38:29 03/25/20 24 03/25/2024 CBC AUTO W DIFF granulocyte% 59.6 % 40-75 Not Available [facility] (Lab Registration) [address] [place], [address], 03/25/2024 13:38:29 03/25/20 24 03/25/2024 CBC AUTO W DIFF lymphocyte% 26.8 % 15-57 Not Available [facility] (Lab Registration) [address] [place], [address], 03/25/2024 13:38:29 03/25/20 24 03/25/2024 CBC AUTO W DIFF monocyte% 7.6 % 4.0-12 .0 Not Available [facility] (Lab Registration) [address] [place], [address], 03/25/2024 13:38:29 03/25/20 24 03/25/2024 CBC AUTO W DIFF eosinophil% 5.0 % 0.0-4. 0 high Not Available [facility] (Lab Registration) [address] [place], [address], 03/25/2024 13:38:29 03/25/20 24 03/25/2024 CBC AUTO W DIFF basophil% 0.6 % 0.0-1. 0 Not Available [facility] (Lab Registration) [address] [place], [address], 03/25/2024 13:38:29 03/25/20 24 03/25/2024 CBC AUTO W DIFF immature granulocytes % 0.4 % 0.0-0. 8 Not Available [facility] (Lab Registration) [address] [place], [address], 03/25/2024 13:38:29 03/25/20 24 03/25/2024 CBC AUTO W DIFF granulocyte# 3.23 10 Not Available [facility] (Lab Registration) [address] [place], [address], 03/25/2024 13:38:29 03/25/20 24 03/25/2024 CBC AUTO W DIFF lymphocyte# 1.45 10 Not Available [facility] (Lab Registration) [address] [place], [address], 03/25/2024 13:38:29 03/25/20 24 03/25/2024 CBC AUTO W DIFF monocyte# 0.41 10 Not Available [facility] (Lab Registration) [address] [place], [address], 03/25/2024 13:38:29 03/25/20 24 03/25/2024 CBC AUTO W DIFF eosinophil# 0.27 10 Not Available [facility] (Lab Registration) [address] [place], [address], 03/25/2024 13:38:29 03/25/20 24 03/25/2024 CBC AUTO W DIFF basophil# 0.03 10 Not Available [facility] (Lab Registration) [address] [place], [address], 03/25/2024 13:38:29 03/25/20 24 03/25/2024 CBC AUTO W DIFF immature granulocytes # 0.02 10 Not Available [facility] (Lab Registration) [address] [place], [address], 03/25/2024 13:38:29 03/25/20 24 03/25/2024 CBC AUTO W DIFF manual differential NO Not Available [facility] (Lab Registration) [address] [place], [address], 03/25/2024 13:38:29 03/25/20 24 03/25/2024 CBC AUTO W DIFF note Unles s other bowles noted testi ng perfo rmed at: [facility] [address] [place] [address] [phone] Wesley anaya MD CLIA: [id number] Not Available [facility] (Lab Registration) [address] [place], [address], 03/25/2024 13:38:29 03/25/20 24 03/25/2024 COMP METAB OLIC PANEL sodium 142 mmol/ L 136-14 5 Not Available [facility] (Lab Registration) [address] [place], [address], 03/25/2024 13:46:33 03/25/20 24 03/25/2024 COMP METAB OLIC PANEL potassium 5.2 mmol/ L 3.5-5. 1 high Not Available [facility] (Lab Registration) [address] [place], [address], 03/25/2024 13:46:33 03/25/20 24 03/25/2024 COMP METAB OLIC PANEL chloride 109 mmol/ L 98-107 high Not Available [facility] (Lab Registration) [address] [place], [address], 03/25/2024 13:46:33 03/25/20 24 03/25/2024 COMP METAB OLIC PANEL carbon dioxide 22 mmol/ L 21-32 Not Available [facility] (Lab Registration) [address] [place], [address], 03/25/2024 13:46:33 03/25/20 24 03/25/2024 COMP METAB OLIC PANEL anion gap 11.0 Not Available [facility] (Lab Registration) [address] [place], [address], 03/25/2024 13:46:33 03/25/20 24 03/25/2024 COMP METAB OLIC PANEL glucose 106 mg/dL 70-110 Not Available [facility] (Lab Registration) [address] [place], [address], 03/25/2024 13:46:33 03/25/20 24 03/25/2024 COMP METAB OLIC PANEL blood urea nitrogen 44 mg/dL 7-18 high Not Available [facility] (Lab Registration) [address] [place], [address], 03/25/2024 13:46:33 03/25/20 24 03/25/2024 COMP METAB OLIC PANEL creatinine 2.1 mg/dL 0.8-1. 3 high Not Available [facility] (Lab Registration) [address] [place], [address], 03/25/2024 13:46:33 03/25/20 24 03/25/2024 COMP METAB OLIC PANEL BUN/creatini ne ratio 21.0 ratio 9-21 Not Available [facility] (Lab Registration) [address] [place], [address], 03/25/2024 13:46:33 03/25/20 24 03/25/2024 COMP METAB OLIC PANEL estimated glom filtration rate 33 mL/mi n >60- low Not Available [facility] (Lab Registration) [address] [place], [address], 03/25/2024 13:46:33 03/25/20 24 03/25/2024 COMP METAB OLIC PANEL total protein 6.8 g/dL 6.4-8. 2 Not Available [facility] (Lab Registration) [address] [place], [address], 03/25/2024 13:46:33 03/25/20 24 03/25/2024 COMP METAB OLIC PANEL albumin 3.8 g/dL 3.4-5. 0 Not Available [facility] (Lab Registration) [address] [place], [address], 03/25/2024 13:46:33 03/25/20 24 03/25/2024 COMP METAB OLIC PANEL calcium 9.6 mg/dL 8.5-10 .1 Not Available [facility] (Lab Registration) [address], [place], [address], 03/25/2024 13:46:33 03/25/20 24 03/25/2024 COMP METAB OLIC PANEL corrected calcium 9.8 mg/dL 8.5-10 .1 Not Available [facility] (Lab Registration) [address] [place], [address], 03/25/2024 13:46:33 03/25/20 24 03/25/2024 COMP METAB OLIC PANEL bilirubin total 0.6 mg/dL 0.4-1. 5 Not Available [facility] (Lab Registration) [address] [place], [address], 03/25/2024 13:46:33 03/25/20 24 03/25/2024 COMP METAB OLIC PANEL AST (SGOT) 27 U/L 15-37 Not Available [facility] (Lab Registration) [address], [place], [address], 03/25/2024 13:46:33 03/25/20 24 03/25/2024 COMP METAB OLIC PANEL ALT (SGPT) 37 U/L 12-78 Not Available [facility] (Lab Registration) [address] [place], [address], 03/25/2024 13:46:33 03/25/20 24 03/25/2024 COMP METAB OLIC PANEL alk phosphatase 77 U/L Not Available [facility] (Lab Registration) [address] [place], [address], 03/25/2024 13:46:33 03/25/20 24 03/25/2024 COMP METAB OLIC PANEL note Unles s other bowles noted testi ng perfo rmed at: [facility] [address] [facility] [place] [address] [phone] Wesley anaya MD CLIA: [id number] Not Available [facility] (Lab Registration) [address] [place], [address], 03/25/2024 13:46:33 03/25/20 24 03/25/2024 LIPID PANEL triglyceride 54 mg/dL 20-200 The Natio nal Susi stero l Educa tion Progr am (NCEP ) has set the follo wing guide lines for Fasti ng Trigl yceri selvin: ADAMARIS L: <150 mg/dL BORDE RLINE HIGH: 150 - 199 mg/dL HIGH: 200 - 499 mg/dL VERY HIGH: > or =500 mg/dL Not Available [facility] (Lab Registration) [address] [place], [address], 03/25/2024 13:47:38 03/25/20 24 03/25/2024 LIPID PANEL cholesterol 204 mg/dL 0-200 high The Natio nal Susi stero l Educa tion Progr am (NCEP ) has set the follo wing guide lines for Fasti ng Susi stero l: SELAM ABLE: <200 mg/dL BORDE RLINE HIGH: 200 - 239 mg/dL HIGH: > or =240 mg/dL Not Available [facility] (Lab Registration) [address] [place], [address], 03/25/2024 13:47:38 03/25/20 24 03/25/2024 LIPID PANEL HDL cholesterol 64 mg/dL 60- The Natio nal Susi stero l Educa tion Progr am (NCEP ) has set the follo wing guide lines for Fasti ng HDL Susi stero l: LOW HDL: <40 mg/dL ADAMARIS L: 40 - 60 mg/dL SELAM ABLE: >60 mg/dL Not Available [facility] (Lab Registration) [address] [place], [address], 03/25/2024 13:47:38 03/25/20 24 03/25/2024 LIPID PANEL LDL calculated 129 mg/dL 100- The Natio nal Susi stero l Educa tion Progr am (NCEP ) has set the follo wing guide lines for Fasti ng LDL Susi stero l: OPTIM AL: < 100 mg/dL LOW RISK: 100 - 129 mg/dL BORDE RLINE HIGH: 130 - 159 mg/dL HIGH: 160 - 189 mg/dL VERY HIGH: > or = 190 mg/dL Not Available [facility] (Lab Registration) [address] [place], [address], 03/25/2024 13:47:38 03/25/20 24 03/25/2024 LIPID PANEL chol/HDL ratio 3 ratio -5 Not Available [facility] (Lab Registration) [address] , [place], [address], 03/25/2024 13:47:38 03/25/20 24 03/25/2024 LIPID PANEL note Unles s other bowles noted testi ng perfo rmed at: [facility] [address] [facility] [place] [address] [phone] Wesley anaya MD CLIA: [id number] Not Available [facility] (Lab Registration) [address] , [place], [address], 03/25/2024 13:47:38 Result Notes None recorded. Problems Name Problem SNOMED Code Status Onset Date Resolution Date Notes Provider Name and Address Organization Details Recorded Time Essential hypertension 25137483 Active 2021 Not Available [facility] 4 05:15:12 Gastroesophag eal reflux disease 839994444 Active 2021 Not Available [facility] 4 05:15:12 Benign prostatic hyperplasia 871482552 Active 2021 Not Available [facility] 4 05:15:12 Type 2 diabetes mellitus 76574721 Active 2021 Not Available [facility] 4 05:15:12 Obstructive sleep apnea syndrome 40938972 Active 2021 Not Available [facility] 4 05:15:12 Hyperlipidemi a 09919808 Active 2021 Not Available [facility] 4 05:15:12 Chronic renal failure 12299121 Active 2021 Not Available [facility] 4 05:15:12 Gout 60948346 Active 2021 Not Available [facility] 4 05:15:12 Nocturnal muscle spasm 03712673 Active 2022 Not Available [facility] 4 05:15:12 Problem Notes None recorded. Procedures Surgical History Date Name Laterality Status Provider Name and Address Organization Details Recorded Time 06/19/20 24 Colonoscopy completed Samantha eTmple [place] [facility] & [place] 07/05/2024 10:35:11 04/23/20 19 circumcision completed Mitzysharri Yepezdini [place] [facility] [place] 08/24/2022 09:02:40 03/20/20 17 extracorporeal shockwave lithotripsy of calculus of kidney completed [facility] [place] [facility] [place] 08/24/2022 09:02:24 11/20/19 11 insertion of stent into ureter completed [facility] Pardini [place] [facility] [place] 08/24/2022 09:02:04 11/20/19 04 repair of musculotendinous cuff of shoulder completed [facility] [place] [facility] [place] 08/24/2022 09:01:39 11/20/19 04 [facility] [place] [facility] [place] 08/24/2022 09:01:43 appendectomy completed [facility] Pardini [place] [facility] [place] 08/24/2022 09:01:17 Imaging Results None recorded. Procedure Notes None recorded. Medical Equipment None Reported. Allergies Allergen ID Allergen Name Allergen Category Reaction Reaction Severity Criticality Documentation Date Start Date Code Code System Note Provider Name and Address Organization Details Recorded Time 60438 amoxicill in medicatio n diarrhea mild Not available 08/24/2022 723 RxNorm Not Available [facility] 4 05:15:12 Medications Name Sig Start Date Stop Date Status Note LastModified by Organization Details LastModified Time cyclobenzap rine 10 mg tablet TAKE 1 TABLET 3 TIMES A DAY 10/23 completed Not Available Not Available Not Available Miralax 17 gram/dose oral powder Take 17 g by oral route for 2 days. 07/09 completed Not Available Not Available Not Available pioglitazon e 15 mg tablet Take 1 tablet every day by oral route as directed for 90 days. active Not Available Not Available No t Available lisinopril 20 mg-hydrochl orothiazide 12.5 mg tablet Take 1 tablet every day by oral route for 90 days. active Not Available Not Available No t Available glipizide ER 10 mg tablet, extended release 24 hr Take 1 tablet every day by oral route as directed for 90 days. active Not Available Not Available No t Available pioglitazon e 45 mg tablet Take 1 tablet every day by oral route. 03/29 completed Not Available Not Available Not Available allopurinol 100 mg tablet Take 1 tablet every day by oral route for 90 days. active Not Available Not Available No t Available sulfamethox azole 800 mg-trimetho prim 160 mg tablet 09/20 completed Not Available Not Available Not Available aspirin 81 mg tablet,reggie yed release Take 1 tablet every day by oral route for 90 days. 2023 active Not Available Not Available Not Avai lable oxycodone-a cetaminophe n 5 mg-325 mg tablet active Not Available Not Available No t Available famotidine 20 mg tablet Take 1 tablet every day by oral route at bedtime for 90 days. active Not Available Not Available No t Available tamsulosin 0.4 mg capsule Take 1 capsule every day by oral route for 90 days. active Not Available Not Available No t Available imiquimod 5 % topical cream packet active Not Available Not Available Not Available cephalexin 500 mg capsule Take 1 capsule 3 times a day by oral route for 7 days. 07/09 completed Not Available Not Available Not Available erythromyci n 5 mg/gram (0.5 %) eye ointment 10/23 completed Not Available Not Available Not Available metformin 1,000 mg tablet Take 1 tablet twice a day by oral route. 10/23 completed Not Available Not Available Not Available doxazosin 4 mg tablet Take 1 tablet every day by oral route. 03/29 completed Not Available Not Available Not Available mupirocin 2 % topical ointment active Not Available Not Available Not Available ondansetron 4 mg disintegrat ing tablet 01/16 completed Not Available Not Available Not Available Dulcolax (bisacodyl) 5 mg tablet,reggie yed release Take 2 tablets by oral route for 1 day. 07/09 completed Not Available Not Available Not Available oxycodone 5 mg tablet 01/16 completed Not Available Not Available Not Available cyclobenzap rine 5 mg tablet TAKE 1 TABLET 3 TIMES DAILYAS NEEDED 10/23 completed Not Available Not Available Not Available Glipizide XL 10 mg tablet,exte nded release Take 2 tablets every day by oral route in the morning. 03/29 completed Not Available Not Available Not Available cyclobenzap rine 7.5 mg tablet TAKE 1 TABLET DAILY NEEDED 10/23 completed Not Available Not Available Not Available Jardiance 10 mg tablet Take 1 tablet every day by oral route. 10/23 completed Not Available Not Available Not Available Ozempic 0.25 mg or 0.5 mg (2 mg/1.5 mL) subcutaneou s pen injector Inject 0.25 mg every week by subcutane ous route for 28 days. 03/25 completed Not Available Not Available Not Available Vitals Date Recorded Body height Body mass index (BMI) Body weight Body temperature Oxygen saturation Oxygen saturation in Arterial blood by Pulse oximetry Heart rate Respiratory rate Systolic blood pressure Diastolic blood pressure Provider Name and Address Organization Details Last Updated DateTime 4 175.26 cm 30.8 kg/m2 28388.6 5 g 97.9 [degF] 97 % 97 % 86 /min 16 /min 142 mm[Hg] 83 mm[Hg] Mitzy Yepezigor [place] - [place] - [place] & [place] 4 11:54:16 Date Recorded Body height Body mass index (BMI) Body weight Body temperature Oxygen saturation Oxygen saturation in Arterial blood by Pulse oximetry Heart rate Respiratory rate Systolic blood pressure Diastolic blood pressure Provider Name and Address Organization Details Last Updated DateTime 4 175.26 cm 30.6 kg/m2 57982.3 4 g 97.7 [degF] 99 % 99 % 75 /min 16 /min 145 mm[Hg] 75 mm[Hg] Mitzy CARVER Ila COWAN [facility] & [place] 4 11:02:40 Date Recorded Body height Body mass index (BMI) Body weight Body temperature Oxygen saturation Oxygen saturation in Arterial blood by Pulse oximetry Heart rate Respiratory rate Systolic blood pressure Diastolic blood pressure Provider Name and Address Organization Details Last Updated DateTime 4 175.26 cm 30.5 kg/m2 77134.4 7 g 97.3 [degF] 98 % 98 % 62 /min 16 /min 139 mm[Hg] 80 mm[Hg] Mitzy Amadorcandelaria COWAN [facility] [place] 4 09:38:27 Date Recorded Body height Body mass index (BMI) Body weight Body temperature Oxygen saturation Oxygen saturation in Arterial blood by Pulse oximetry Heart rate Respiratory rate Systolic blood pressure Diastolic blood pressure Provider Name and Address Organization Details Last Updated DateTime 4 175.26 cm 31.2 kg/m2 79948.9 9 g 97.2 [degF] 97 % 97 % 68 /min 16 /min 139 mm[Hg] 84 mm[Hg] Mitzy CARVER Ila COWAN [facility] [place] 4 10:45:09 Date Recorded Body height Body mass index (BMI) Body weight Body temperature Oxygen saturation Oxygen saturation in Arterial blood by Pulse oximetry Heart rate Respiratory rate Systolic blood pressure Diastolic blood pressure Provider Name and Address Organization Details Last Updated DateTime 3 175.26 cm 30.1 kg/m2 77720.8 4 g 97.5 [degF] 100 % 100 % 80 /min 16 /min 156 mm[Hg] 81 mm[Hg] Mitzy Amadorcandelaria MEHUL Ila COWAN [facility] & [place] 3 09:45:50 Social History Question Answer Notes LastModified by Organizat ion Details LastModified Time Tobacco Smoking Status Never Smoker Mitzy Amadorcandelaria yeung MEHUL Ila COWAN [facility] [place] 08/24/2022 09:00:55 What Was The Date Of Your Most Recent Tobacco Screening? 01/18/2023 [email or web address] Information not available 01/18/2023 Has Tobacco Cessation Counseling Been Provided? No Information not available 08/24/2022 Sex: Unknown Functional Status Question Answer Note LastModified by Organizat ion Details LastModified Time Do you use any illicit or recreational drugs? No Information not available 08/24/2022 Do you or have you ever used any other forms of tobacco or nicotine? No Information not available 08/24/2022 Mental Status None recorded. Family History Relationship Description Onset Age of this Age Resolved Age Notes LastModified by Organization Details LastModified Time Sister Seizure disorder [email or web address] Not available 02/2024 09:46:20 Daughter Seizure disorder [email or web address] Not available 02/2024 09:46:20 Medical History Condition Response Diabetes Y Gout Y Kidney Stones Y Hypertension Y High Cholesterol Y Immunizations Vaccine Type Date Status Note Provider Nam e and Address Organization Details Recorded Time Influenza, adjuvanted, trivalent, PF 7 completed Not Available [facility] 12/14/2023 05:15:12 Influenza, MDCK, quadrivalent, PF 8 completed Not Available [facility] 12/14/2023 05:15:12 Influenza, high-dose, quadrivalent, PF 0 completed Not Available [facility] 12/14/2023 05:15:12 Influenza, high-dose, quadrivalent, PF 1 completed Not Available [facility] 12/14/2023 05:15:12 Influenza, high-dose, quadrivalent, PF 2 completed Not Available [facility] 12/14/2023 05:15:12 COVID-19, mRNA, LNP-S, PF, 100 mcg/0.5mL dose or 50 mcg/0.25mL dose 1 completed Not Available [facility] 12/14/2023 05:15:12 COVID-19, mRNA, LNP-S, PF, 100 mcg/0.5mL dose or 50 mcg/0.25mL dose 1 completed Not Available [facility] 12/14/2023 05:15:12 Pneumococcal conjugate PCV 13 8 completed Not Available [facility] 12/14/2023 05:15:12 Influenza, [place] 3 completed Not Available [facility] 12/14/2023 05:15:12 Influenza, high-dose, quadrivalent, PF 3 completed [facility] [place] 01/16/2024 11:54:33 Past Encounters Encounter ID Performer Location Encounter Start Date Encounter Closed Date Diagnosis/Indication Diagnosis SNOMED-CT Code Diagnosis ICD10 Code Diagnosis Note [id number] Matthew Roberts MD [address] [address] 08/24/2022 08:39:33 08/24/2022 09:20:13 Injury of finger 81901885 S69.91XA partially avulsed nail has been removed. Patient tolerated procedure well. We have dressed finger with antibiotic ointment. [id number] Matthew Roberts MD [address] [address] 09/30/2022 14:35:56 09/30/2022 15:25:25 Benign prostatic hyperplasia 009513528 N40.0 stable Essential hypertension 82126989 I10 patient's blood pressure is elevated. It is questionab le with a took his medication today. I have told him to monitor his blood pressure at home and let me know what his blood pressure log looks like. We may need to adjust his medication s. Gastroesop hageal reflux disease 581760581 K21.9 stable Hyperlipidemia 53893783 E78.5 Stable [id number] Matthew Roberts MD [address] [address] 12/23/2022 07:48:01 12/23/2022 08:44:12 Essential hypertension 75945429 I10 patient's blood pressure is elevated. It is questionab le with a took his medication today. I have told him to monitor his blood pressure at home and let me know what his blood pressure log looks like. We may need to adjust his medication s. Type 2 ekaterina betes mellitus 67301269 E11.9 will stop pioglitazo ne. Start patient on Jardiance. Hyperlipidemia 30876421 E78.5 Stable will check lab work today. Gastroesop hageal reflux disease 549924910 K21.9 stable [id number] Matthew Roberts MD [address] [address] 01/18/2023 10:46:45 01/18/2023 10:59:30 Type 2 diabetes mellitus 65228719 E11.9 Patient states he is unable to afford his Jardiance. He states he has been taking metformin. I will try to get him approved for Ozempic. Will send in a prescripti on today. Osteoarthritis 372610824 M19.90 patient has osteoarthr itis in both knees. He has an appointmen t follow-up with his orthopedis t in the morning. He is to continue to take Tylenol as needed for pain. [id number] MD william [address] [address] 03/29/2023 08:21:03 03/29/2023 08:48:03 Type 2 diabetes mellitus 41730406 E11.9 PATIENT TO CONTINUE TO TAKE HIS METFORMIN. Cramp in lower limb 4499 74212 R25.2 WILL SEND IN A PRESCRIPTI ON FOR CYCLOBENZA VAIBHAV TO TAKE NEEDED. PATIENT TO ALSO START TAKING HIS POTASSIUM. Benign pro static hyperplasia 843681983 N40.0 PATIENT STATES THAT HIS TAMSULOSIN WORKS WELL FOR HIM. WILL SEND IN A REFILL TODAY. [id number] Matthew Roberts MD [address] [place] [address] 07/12/2023 08:08:09 07/12/2023 08:47:10 Type 2 diabetes mellitus 43159318 E11.9 PATIENT TO CONTINUE TO TAKE HIS METFORMIN. - WE WILL ADD JARDIANCE TO REGIMEN Screening for malignant neoplasm of colon 821419696 Z12.11 Benign pro static hyperplasia 984615278 N40.0 PATIENT STATES THAT HIS TAMSULOSIN WORKS WELL FOR HIM. WILL SEND IN A REFILL TODAY. Chronic renal failure 90 292971 N18.9 patient to continue to follow-up with nephrology . Essential hypertension 07591430 I10 Blood pressure controlled . Hyperlipidemia 67965455 E78.5 Stable will check lab work today. Gastroesop hageal reflux disease 769770487 K21.9 stable Cramp in lower limb 4499 33069 R25.2 WILL SEND IN A PRESCRIPTI ON FOR CYCLOBENZA VAIBHAV TO TAKE NEEDED. PATIENT TO ALSO START TAKING HIS POTASSIUM. Gout 08133871 M10.9 will renew patient's allopurino l. [id number] Matthew Roberts MD [address] [place] [address] 10/23/2023 09:30:21 10/23/2023 10:11:14 Essential hypertension 27272149 I10 Blood pressure controlled . Gastroesop hageal reflux disease 198449793 K21.9 stable Hyperlipidemia 26409842 E78.5 Stable will check lab work today. Type 2 ekaterina betes mellitus 37429170 E11.9 patient states that he can not 4 Jardiance. He has also stopped his metformin secondary to diarrhea. Patient is currently not on any diabetic medication . 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 No anticoagul ation is required for this. Patient needs to follow-up with his orthopedis t. We attempted to call patient to discuss results of his ultrasound . No blood thinners required at this time.No reply. Mailbox is full. Will try again. [id number] Matthew Roberts MD [address] [place] [address] 01/29/2024 10:46:20 01/29/2024 11:36:47 Type 2 diabetes mellitus 86784394 E11.9 Will check patient's A1c today. Essential hypertension 70312677 I10 Blood pressure controlled . Hyperlipidemia 08265335 E78.5 Stable will check lab work today. Gout 72703754 M10.9 Gastroesop hageal reflux disease 313562371 K21.9 Benign pro static hyperplasia 310633027 N40.0 [id number] Matthew Roberts MD [address] [place] [address] 03/25/2024 09:27:23 03/25/2024 09:54:49 Type 2 diabetes mellitus 78302073 E11.9 Patient can not afford Ozempic so he has not taken Chronic renal failure 90 171802 N18.9 will check lab work today. Essential hypertension 67479681 I10 Blood pressure controlled . Hyperlipidemia 12696802 E78.5 Stable will check lab work today. Gout 74542641 M10.9 Patient takes allopurino l. Will refill his prescripti on. [id number] Matthew Roberts MD [facility] [address] [place] [address] 07/09/2024 10:31:32 07/09/2024 10:49:39 Fracture at wrist and/or hand level 528280073 S62.91XD continue to follow-up with orthopedis t. Gout 37788660 M10.9 Patient takes allopurino l. Will refill his prescripti on. Essential hypertension 55872346 I10 Blood pressure controlled . Gastroesop hageal reflux disease 067028227 K21.9 Type 2 ekaterina betes mellitus 28010679 E11.9 Benign pro static hyperplasia 741660213 N40.0 Health Concerns Section Related Observation LastModified by Organization Detai ls LastModified Time None Recorded Concern Status LastModified by Organization Details LastModified Time None Recorded Advance Directives Directive None Recorded Payers Insurance Date Sequence Insurance Name Policy Number Policy Muhammad Covered Member ID Muhammad Member ID Guarantor Name 06/08/2024 2 [employer] (MEDICARE SUPPLEMENT) Addison Peguero [id number] Addison Peguero 10/25/2024 [place] [employer] - [facility] Addison Peguero [id number] Addison Peguero 10/25/2024 1 [place] Addison Peguero [id number] Addison Peguero 10/25/2024 2 [employer] (MEDICARE SUPPLEMENT) Addison Peguero [id number] Addison Peguero 10/25/2024 [place] [place] - [facility] (MEDICARE) Addison Peguero [id number] Addison Peguero 06/08/2024 1 [place] Addison Peguero [id number] Addison Peguero 05/12/2020 2 [employer] (MEDICARE SUPPLEMENT) Addison Peguero [id number] Addison Peguero Notes Date Note Type Note Provider Name and Address Organization Details Recorded Time 10/23/2023 text/html PT PRESENTS FOR CHRONIC CARE MANAGEMENT, DENIES ANY NEW ISSUES. IS COMPLIANT WITH MEDICATIONS Matthew Roberts MD [address] [place] [address], [phone], [facility] & [place] 10/23/2023 10:28:30 01/16/2024 text/html Patient presents today requesting a prescription for a blood thinner. Upon interrogation he tells me that he was seen by his orthopedic surgeon who operated on his left lower extremity. He was sent for Doppler studies at the hospital. He states he called their office this morning and was told to follow-up with his primary care physician to get blood thinners because he had a blood clot. We are not aware of this patient's testing. And I do not have a copy of his results. Matthew Roberts MD [address] [place] [address], [phone], [facility] & [place] 01/16/2024 14:19:30 01/29/2024 text/html patient presents for routine chronic care management. He denies any new issues at this time. Matthew Roberts MD [address] [place] [address], [phone], [facility] & [place] 01/29/2024 11:22:23 03/25/2024 text/html PT PRESENTS FOR CHRONIC CARE MANAGEMENT, DENIES ANY NEW ISSUES. IS COMPLIANT WITH MEDICATIONS Matthew Roberts MD [address] [place] [address], [phone], [facility] & [place] 03/25/2024 09:55:51 07/09/2024 text/html Patient presents today for routine follow-up. He states that he Needs refills on his medications. he also states that he broke his right wrist in April. Patient is under the care of He states that he fell Matthew Roberts MD [address] [place] [address], [place], [phone], [facility] & [place] 07/09/2024 10:58:15
--- OUTSIDE RECORDS SUMMARY | 2025-05-16 16:48 | XMS_ITS | Encounter Summary ---
Author Organization [employer] Address [address] [place] [address] Care Team Providers Care Program Lead Name Role Phone Samantha Vallecillo INTEGRATION SOFTWARE DEVELOPER Primary Care Provider [phone] Reason for Referral * Diagnostic X-Ray (Emergency) - New Request Specialty Diagnoses / Procedures Referred By Светлана barrios Referred To Contact Diagnoses Calculus of kidney Procedures X-ray abdomen KUB 1 view Derek Madrigal MD [address] [place] [address] [place] [address] Phone: tel: fax: Referral ID Status Reason Start Date Expiration Date V isits Requested Visits Authorized [id number] New Request 01/24/2025 01/24/2026 1 1 Encounter Details Date Type Department Care Team (Late st Contact Info) Description 01/24/2025 Outside Orders [facility] Diagnostic Imaging - [place] Office [address] [place] [id number] Derek Madrigal MD [address] [place] [address] [place] [address] Calculus of kidney (Primary Dx) Social History Tobacco Use Types Packs/Day Years Used Date Smoking Tobacco: Never Assessed Sex and Gender Information Value Date Recorded Sex Assigned at Not on file Legal Sex Male 7:42 AM [employer] Gender Identity Not on file Sexual Orientation Not on file documented as of this encounter Plan of Treatment Not on file documented as of this encounter Results * X-ray abdomen KUB 1 view (01/28/2025 11:04 AM EDT) Anatomical Region Laterality Modality Abdomen X-Ray 01/28/2025 11:3 5 AM EDT Impressions 01/28/2025 11:38 AM EDT Left nephrolithiasis. Images reviewed, interpreted, and dictated by Dr. Daniela Benoit. Transcribed by Jose Rubi PA-C Narrative 01/28/2025 11:38 AM EDT ABDOMEN HISTORY: Nephrolithiasis . COMPARISON:None. FINDINGS: A single view of the abdomen demonstrates a nonspecific bowel gas pattern. There is a 5 mm stone overlying the left renal shadow. No convincing right renal stone is identified. No acute osseous abnormality is identified. Procedure Note Daniela Benoit MD - 01/28/2025 ABDOMEN HISTORY: Nephrolithiasis . COMPARISON:None. FINDINGS: A single view of the abdomen demonstrates a nonspecific bowel gas pattern. There is a 5 mm stone overlying the left renal shadow. No convincing right renal stone is identified. No acute osseous abnormality is identified. IMPRESSION: Left nephrolithiasis. Images reviewed, interpreted, and dictated by Dr. Daniela Benoit. Transcribed by Jose Rubi PA-C us Derek Madrigal MD [facility] ORDERAB LES Final Result documented in this encounter Visit Diagnoses Diagnosis Calculus of kidney- Primary Calculus of kidney documented in this encounter Care Teams Program Lead Relationship Specialty Start Date End Date Samantha Vallecillo NP [address] [place] [address] PCP - General Nurse Practitioner 02/13/25 documented as of this encounter
--- OUTSIDE RECORDS SUMMARY | 2025-05-16 16:48 | XMS_ITS | Patient Health Record ---
Author Organization [facility] [place] Address [address] [place] [address] [place] [address] Care Team Providers Care Coil Finisher Name Role Phone FRANK MATIAS Unavailable [phone] Reason For Referral No Information Medications Medication SIG (Take, Route, Frequency, Duration) Notes Start Date End Date Status glipiZIDE ER 10 MG Oral for 90 Days Active Famotidine 20 MG Oral for 90 Days Active Atorvastatin Calcium 20 MG Oral for 90 Days Active Pioglitazone HCl 15 MG Oral for 90 Days Active Tamsulosin HCl 0.4 MG Oral for 90 Days Active Lisinopril-hydroCHLOROthiaz geno 20-12.5 MG Oral for 90 Days Active Allopurinol 100 MG Oral for 90 Days Active Social History Tobacco Use: Social History Observation Description Date Details (start date - stop date) Never Smoker NA - NA Tobacco use other than smoking: Question Answer Notes Are you an other tobacco user? No Tobacco Control (Standard) Question Answer Notes Tobacco use: Nonsmoker AUDIT-C (Standard) Question Answer Notes Did you have a drink containing alcohol in the p ast year? No Points 0 Interpretation Negative Encounters Encounter Location Date Provider Diagnosis [facility] [place] [address] [place], [place] [id number] 03/11/2025 FRANK MATIAS Plan Of Treatment No Information Medical (General) History Medical History History ICD Code hyperlipidemia, chronic gout y arhtritis, depresion, gerd, ckd, type 2 diabetes
--- OUTSIDE RECORDS SUMMARY | 2025-05-16 16:48 | XMS_ITS | Continuity of Care Document ---
Author Organization [place] - [facility] Address [address] [place] [phone] Assessment Encounter Date Assessment Date Assessment LastModified by Organization Details LastModified Time 04/18/2025 04/18/2025 Change glipizide to jardiance as prescribed. Samples as packaged per machine operator packaging provided to patient today. Labs per plan below. Follow up in 1 month for recheck, sooner if needed. uy Not available 04/21/2025 09:44:20 Plan of Treatment Reminders Order Date Submit Date Provider Last Modified By Organization Details Last Modified Time Details Appointments FOLLOW UP 2024 01:00P Samantha Matta Not available Not available Not available Lab HbA1c (hemoglob in A1c), blood 2024 025 [facility], [address] [place] [address], [phone], 04/18/2025 10:17:29 CMP, serum or plasma 2024 025 [facility] [address] [place] [address], [id number], 04/19/2025 05:06:44 CBC w/ auto diff 2024 025 [facility] [address] [place] [address], [id number], 04/19/2025 05:06:43 lipid panel, serum 2024 025 LEROY [facility], [address] [place] [address], [place], [address], 04/19/2025 05:06:45 Referral None recorded. Procedures None recorded. Surgeries None recorded. Imaging None recorded. Medication Orders Jardiance 10 mg tablet 2024 025 [facility], [address] [place], [address], 04/18/2025 10:18:12 pioglitaz one 15 mg tablet 2024 025 [facility], [address] [place], [address], 04/18/2025 14:22:17 Patient TargetsNo targets recorded. Patient Instructions Encounter Date Encounter Id Patient Instructions Last Modified By Organization Details Last Modified Time 04/18/2025 [id number] learning about type 2 diabetes [email or web address] Not available 04/18/2025 10:17:29 type 2 diabetes: care instructions [email or web address] Not available 04/18/2025 10:17:29 Reason for Referral None Reported. Results Created Date Observation Date Name Description Value Unit Range Abnormal Flag Note LastModifiedBy Organization Detail LastModifiedTime 04/18/20 25 04/18/2025 HbA1c (hemo globi n A1c), blood HbA1c 6.7 Not Available [address], [address], 04/18/2025 09:43:05 05/07/20 25 05/05/2025 XR, abdom en No observ ation record ed. [facility] [address], [place], [address], 05/07/2025 09:42:29 Result Notes None recorded. Problems Name Problem SNOMED Code Status Onset Date Resolution Date Notes Provider Name and Address Organization Details Recorded Time Infection of toe 652691109 Completed 202310/31/2024 Samantha Vallecillo NP [address] [facility], [place], [address], [place] - [employer] 4 12:09:10 Onychomycos is of toenails 843365247 Completed 202310/31/2024 Samantha Vallecillo NP [address] [place] [address], [address], [employer] 4 12:09:13 Type 2 diabetes mellitus without complicatio n 949048422 Completed 202303/21/2025 Samantha Vallecillo NP [address] [place] [address], [address], [employer] 5 10:01:28 Gastroesoph ageal reflux disease without esophagitis 716432891 Active 2023 Samantha Vallecillo NP [address] [place] [address], [address], [employer] 4 12:09:07 Chronic gouty arthritis 08612873 Active 2023 Samantha Vallecillo NP [address] [place] [address], [address], [employer] 4 12:09:05 Body mass index 30+ - obesity 646371308 Active 2023 Samantha Vallecillo NP [address] [place] [address], [address], [employer] 4 12:09:30 Hypertensiv e disorder 04701922 Active 2023 Samantha Vallecillo NP [address] [place] [address], [address], [employer] 4 12:09:25 Hyperlipide miguel 42670539 Active 2024 Samantha Vallecillo NP [address] [place] [address], [address], [employer] 5 09:07:34 Adjustment disorder with depressed mood 74692258 Active 2024 Samantha Vallecillo NP [address] [place] [address], [address], [employer] 09:07:38 Chronic kidney disease 462790948 Active 2024 Samantha Vallecillo, BONI [address] [place] [address], [address], [employer] 09:59:50 Type 2 diabetes mellitus 77955541 Active 2024 Samantha Vallecillo, [employer]ICATION[employer] [address] [place] [address], [address], [employer] 10:01:21 Dizziness 641585004 Active 2024 Samantha Vallecillo, [employer] [address] [place] [address], [address], [employer] 10:13:57 Anemia 040106228 Active 2024 Samantha Vallecillo NP [address] [place] [address], [address], [employer] 13:03:12 Kidney stone 07948556 Active 2024 Samantha Vallecillo, BONI [address] [place] [address], [address], [employer] 16:08:49 Chronic low back pain 383374509 Active 2024 Samantha Vallecillo NP [address] [place] [address], [address], [employer] 13:48:49 Urinary incontinenc e 376183839 Active 2024 Samantha Vallecillo NP [address] [place] [address], [address], [employer] 14:07:05 Problem Notes None recorded. Procedures Surgical History Date Name Laterality Status Provider Name and Address Organization Details Recorded Time complete repair of rotator cuff completed [employer] 07/03/2024 12:06:07 procedure on nerve completed [employer] 07/03/2024 12:06:55 total knee replacement completed [employer]. 07/03/2024 12:07:10 Appendectomy completed Griselda Powell [facility]. 07/03/2024 12:07:17 total replacement of hip completed Grsielda Powell Heysan. 07/03/2024 12:07:28 Imaging Results None recorded. Procedure Notes None recorded. Medical Equipment None Reported. Allergies No known drug allergies Medications Name Sig Start Date Stop Date Status Note LastModified by Organization Details LastModified Time pioglitazon e 15 mg tablet Take 1 tablet every day by oral route. active Not Available Not Available No t Available atorvastati n 20 mg tablet Take 1 tablet every day by oral route, for cholester ol. active Not Available Not Available No t Available atorvastati n 10 mg tablet Take 1 tablet every day by oral route at bedtime, for cholester ol. 03/21 completed Not Available Not Available Not Available lisinopril 20 mg-hydrochl orothiazide 12.5 mg tablet Take 1 tablet every day by oral route for 90 days. active Not Available Not Available No t Available glipizide ER 10 mg tablet, extended release 24 hr Take 1 tablet every day by oral route. 04/18 completed Not Available Not Available Not Available allopurinol 100 mg tablet Take 1 tablet every day by oral route for 90 days. active Not Available Not Available No t Available oxycodone-a cetaminophe n 5 mg-325 mg tablet 07/03 completed Not Available Not Available Not Available famotidine 20 mg tablet Take 1 tablet every day by oral route for 90 days. active Not Available Not Available No t Available tamsulosin 0.4 mg capsule Take 1 capsule every day by oral route for 90 days. active Not Available Not Available No t Available imiquimod 5 % topical cream packet 10/31 completed Not Available Not Available Not Available cephalexin 500 mg capsule Take 1 capsule every 6 hours by oral route. 10/31 completed Not Available Not Available Not Available oseltamivir 75 mg capsule Take 1 capsule every day by oral route. 01/29 completed Not Available Not Available Not Available mupirocin 2 % topical ointment 10/31 completed Not Available Not Available Not Available ondansetron 4 mg disintegrat ing tablet 07/03 completed Not Available Not Available Not Available oxycodone 5 mg tablet 07/03 completed Not Available Not Available Not Available solifenacin 10 mg tablet Take 1 tablet every day by oral route as directed for 30 days. active Not Available Not Available No t Available Jardiance 10 mg tablet Take 1 tablet every day by oral route. 2024 active Not Available Not Available Not Avai lable Gemtesa 75 mg tablet Take 1 tablet every day by oral route. active Not Available Not Available No t Available aspirin 81 mg capsule Take 1 capsule every day by oral route as directed. active Not Available Not Available No t Available Vitals Date Recorded Body height Body mass index (BMI) Body weight Heart rate Oxygen saturation Oxygen saturation in Arterial blood by Pulse oximetry Systolic blood pressure Diastolic blood pressure Provider Name and Address Organization Details Last Updated DateTime 5 175.26 cm 31.2 kg/m2 47481.0 9 g 70 /min 98 % 98 % 139 mm[Hg] 79 mm[Hg] Carolyn Ceja [employer], [employer] 5 09:42:09 Social History Question Answer Notes LastModified by Organizat ion Details LastModified Time Tobacco Smoking Status Never Smoker Griselda yeung, [employer] 07/03/2024 12:05:06 Is Your Home Air Conditioned? Yes Information not available 07/03/2024 Are You Blind Or Do You Have Difficulty Seeing? No Information not available 07/03/2024 What Is Your Level Of Caffeine Consumption? None Information not available 07/03/2024 Are You A Caregiver? Yes Has Dementia Information not available 07/03/2024 In The 14 Days Before Symptom Onset, Have You Had Close Contact With A Laboratory-confir med COVID-19 While That Case Was Ill? No Information not available 07/03/2024 In The 14 Days Before Symptom Onset, Have You Had Close Contact With A Person Who Is Under Investigation For COVID-19 While That Person Was Ill? No Information not available 07/03/2024 Have You Been To An Area Known To Be High Risk For COVID-19? No Information not available 07/03/2024 Are You Deaf Or Do You Have Serious Difficulty Hearing? No Information not available 07/03/2024 What Type Of Diet Are You Following? DIABETIC Information not available 07/03/2024 What Was The Date Of Your Most Recent Tobacco Screening? 05/16/2025 [email or web address] Information not available 05/16/2025 What Is Your Relationship Status? Information not available 07/03/2024 Do You Use Your Seat Belt Or Car Seat Routinely? Yes Information not available 07/03/2024 Are You Sexually Active? No Information not available 10/31/2024 Do You Have Smoke And Carbon Monoxide Detectors In Your Home? Yes Information not available 07/03/2024 Are You Passively Exposed To Smoke? No Information no t available 07/03/2024 Are There Any Smokers In Your House? No Information not available 07/03/2024 Do You Participate In Social Media? Yes [email or web address] Information not available 10/31/2024 Has Tobacco Cessation Counseling Been Provided? No Information not available 07/03/2024 Have You Recently Traveled Abroad? No Information not available 07/03/2024 Do You Have Difficulty Walking Or Climbing Stairs? Yes Information not available 07/03/2024 Are You Currently In School? No Information not available 10/31/2024 Do You Have Any Dietary Restrictions? Yes [email or web address] Information not available 10/31/2024 Sex: Male Functional Status Question Answer Note LastModified by Organizat ion Details LastModified Time Do you use any illicit or recreational drugs? No Information not available 07/03/2024 Do you or have you ever used any other forms of tobacco or nicotine? No [email or web address] Information not available 10/31/2024 What is your level of alcohol consumption? None Information not available 07/03/2024 Are you currently employed? No Information not available 07/03/2024 Do you have transportation difficulties? No [email or web address] Information not available 10/31/2024 Are you able to walk? [email or web address] Information not available 07/03/2024 Do you have difficulty doing errands alone? No Information not available 07/03/2024 Are you able to care for yourself? Yes Information not available 07/03/2024 Do you have difficulty dressing or bathing? No Information not available 07/03/2024 Mental Status Question Answer Note LastModified by Organizat ion Details LastModified Time Do you feel stressed (tense, restless, nervous, or anxious, or unable to sleep at night)? [id number] [email or web address] Information not available 10/31/2024 Do you have difficulty concentrating, remembering or making decisions? No Information no t available 07/03/2024 Family History Nothing Reported. Medical History Condition Response Diabetes Y Hospitalizations N Gout Y Emergency room visit since last appointm ent. N Hypertension Y Immunizations Vaccine Type Date Status Note Provider Nam e and Address Organization Details Recorded Time Influenza, high-dose, trivalent, PF 4 completed Samantha Vallecillo NP [address] [place], [address], [employer] 11/02/2024 09:27:35 zoster recombinant 5 completed Samantha Vallecillo NP [address] [place], [address], [employer] 03/05/2025 13:28:44 Influenza, adjuvanted, trivalent, PF 7 completed Griselda yeung, [employer] 07/03/2024 11:45:29 Influenza, MDCK, quadrivalent, PF 8 completed Griselda yeung, [employer] 07/03/2024 11:45:29 Influenza, high-dose, quadrivalent, PF 0 completed Griselda yeung, [employer] 07/03/2024 11:45:30 Influenza, high-dose, quadrivalent, PF 1 completed Griselda yeung [employer] 07/03/2024 11:45:30 Influenza, high-dose, quadrivalent, PF 2 completed Griselda Sherry gamal, [employer] 07/03/2024 11:45:30 Influenza, high-dose, quadrivalent, PF 3 completed Griseldazita Powell null, [employer] 07/03/2024 11:45:30 COVID-19, mRNA, LNP-S, PF, 100 mcg/0.5mL dose or 50 mcg/0.25mL dose 1 completed Griselda Sherry null, [employer] 07/03/2024 11:45:30 COVID-19, mRNA, LNP-S, PF, 100 mcg/0.5mL dose or 50 mcg/0.25mL dose 1 completed Griselda [place] [employer], [employer] 07/03/2024 11:45:30 Pneumococcal conjugate PCV 13 8 completed Griselda Montaguelly [employer], [employer] 07/03/2024 11:45:30 Past Encounters Encounter ID Performer Location Encounter Start Date Encounter Closed Date Diagnosis/Indication Diagnosis SNOMED-CT Code Diagnosis ICD10 Code Diagnosis Note [id number] [place] [address] 03/21/2025 09:21:29 03/21/2025 10:43:45 Type 2 diabetes mellitus 60671362 E11.22 N18.32 Hyperlipidemia 80255418 E78.5 Hypertensive disorder 38 710599 I10 [id number] Samantha Vallecillo NP Marty [address] 04/18/2025 09:22:01 04/18/2025 10:38:04 Type 2 diabetes mellitus 57325510 E11.22 N18.32 Dizziness 003919774 R42 Hyperlipidemia 31403401 E78.5 Chronic ki dney disease 023542039 N18.9 Health Concerns Section Related Observation LastModified by Organization Detai ls LastModified Time None Recorded Concern Status LastModified by Organization Details LastModified Time None Recorded Payers Encounter Date Sequence Insurance Name Policy Number Policy Muhammad Covered Member ID Muhammad Member ID Guarantor Name 04/18/2025 1 [place] Addison Peguero [id number] Addison Peguero 04/18/2025 2 [employer] (MEDICARE SUPPLEMENT) Addison Peguero [id number] Addison Peguero Notes Date Note Type Note Provider Name and Address Organization Details Recorded Time 04/18/2025 text/html Patient presents for diabetes follow up and to discuss dizziness. He seems to be getting dizzy after he takes his glipizide. He took jardiance in the past, but insurance wouldn't cover his medication. He is wondering if we could try that again.States he goes back on the 05/05 to urology. They are going to do a cystoscopy. He has continued incontinence.Con tinued stress at home. 's psych eval went well, still working on getting her into detention. Samantha Vallecillo, BONI [address] [place] [address], [place], [address], [facility] [employer] 04/21/2025 09:44:42
--- OUTSIDE RECORDS SUMMARY | 2025-05-16 16:48 | XMS_ITS | Data Portability ---
Author Organization [employer] [place] [facility] [place] Address [address] [place] [address] Assessment Encounter Date Assessment Date Assessment LastModified by Organization Details LastModified Time 01/30/2025 01/30/2025 Wellness - Wellness discussed including recommended screenings, vaccines and lifestyle changes including routine exercise 30 minutes 5 times per week and a healthy diet. He is going to schedule his diabetic eye exam. Never smoker. Defer immunizations to follow up. Start atorvastatin. Previous A1C stable, he will follow up in 1 month for recheck and fasting labs (since he is pending surgery currently). He feels he is coping well with depressed mood currently. Will continue to monitor. No SI or concerning symptoms. He declines psychotherapy. Follow up in 1 month for recheck - discuss colon CA screen, Fasting labs (CBC, CMP, PSA, lipid panel, HbA1C, Hep C screen), vaxneuvance/clark grix. Not available 01/31/2025 13:13:32 02/26/2025 02/26/2025 Continue current medications. Labs per plan below. Continue care with urology. Update shingrix today. Patient counseled. He states he had a pneumonia vaccine in the past. Follow up in 3 months for recheck, sooner if needed Not available 03/05/2025 13:32:39 03/21/2025 03/21/2025 RF glipizide per plan below. Patient pending nephrology appt for kidneys. We were able to get urology r/s for next week 03/27/2025 at 1:45 in [place], he was provided appt info. He was advised to seek care with any severe or worsening pain, fever or chills. He was unable to void today, he will try to return urine sample for UA/culture today or tomorrow. Follow up as planned, sooner if needed Not available 03/21/2025 10:48:17 04/18/2025 04/18/2025 Change glipizide to jardiance as prescribed. Samples as packaged per extract operator provided to patient today. Labs per plan below. Follow up in 1 month for recheck, sooner if needed. Not available 04/21/2025 09:44:20 Plan of Treatment Reminders Order Date Submit Date Provider Last Modified By Organization Details Last Modified Time Details Appointments FOLLOW UP 2024 01:00P Samantha Matta Not available Not available Not available Lab HbA1c (hemoglob in A1c), blood [address], [address], 04/18/2025 10:17:29 CMP, serum or plasma 2024 025 KEERTHI [facility]), [address] [place] [address], [id number], 04/19/2025 05:06:44 CBC w/ auto diff 2024 025 BOONE [facility]), [address] [place] [address], [id number], 04/19/2025 05:06:43 lipid panel, serum 2024 025 BOONE [facility]), [address] [place] [address], [id number], 04/19/2025 05:06:45 urinalysi s, dipstick [address], [address], 03/22/2025 08:04:10 CMP, serum or plasma 2024 025 [facility] [address] [place], [address], 02/27/2025 09:28:31 lipid panel, serum 2024 025 [facility]), [address] [place], [address], 02/27/2025 09:28:31 PSA, total, serum or plasma 2024 025 [facility]), [address] [place], [address], 02/27/2025 09:28:32 CBC w/ auto diff 2024 025 [facility]), [address] [place], [address], 02/27/2025 09:28:30 HbA1c (hemoglob in A1c), blood 2024 025 [facility]), [address] [place], [address], 02/27/2025 09:28:32 Hepatitis C IgG Ab, qual, serum 2024 025 [facility]), [address] [place], [address], 02/27/2025 09:28:31 Referral None recorded. Procedures None recorded. Surgeries None recorded. Imaging None recorded. Medication Orders Jardiance 10 mg tablet 2024 025 [email or web address], [address] [place], [address], 04/18/2025 10:18:12 pioglitaz one 15 mg tablet 2024 025 [facility], [address] [place], [address], 04/18/2025 14:22:17 glipizide ER 10 mg tablet, extended release 24 hr 2024 025 KEERTHI [facility], [address] [place], [address], 04/18/2025 10:09:07 atorvasta tin 10 mg tablet 2024 025 KEERTHI [facility], [address] [place], [address], 03/21/2025 10:00:24 Patient TargetsNo targets recorded. Patient Instructions Encounter Date Encounter Id Patient Instructions Last Modified By Organization Details Last Modified Time 01/30/2025 [id number] type 2 diabetes: care instructions Not available 01/31/2025 13:13:34 high cholesterol : care instructions Not available 01/31/2025 13:13:34 body mass index: care instructions Not available 01/31/2025 13:14:13 learning about healthy weight Not available 01/31/2025 13:14:13 adjustment disorder: care instructions Not available 01/31/2025 13:13:34 02/26/2025 [id number] high cholesterol : care instructions Not available 02/26/2025 09:26:12 type 2 diabetes: care instructions Not available 02/26/2025 09:26:12 03/21/2025 [id number] learning about type 2 diabetes Not available 03/21/2025 10:02:30 type 2 diabetes: care instructions Not available 03/21/2025 10:02:30 high cholesterol : care instructions Not available 03/21/2025 10:02:30 04/18/2025 [id number] learning about type 2 diabetes Not available 04/18/2025 10:17:29 type 2 diabetes: care instructions Not available 04/18/2025 10:17:29 Reason for Referral None Reported. Results Created Date Observation Date Name Description Value Unit Range Abnormal Flag Note LastModifiedBy Organization Detail LastModifiedTime 02/27/20 25 02/27/2025 CBC WITH DIFFE RENTI AL/PL ATELE T WBC 14.3 x10e3 /uL 3.4-10 .8 above high normal Not Available [facility] ([facility]) [address] [place], [address], 02/27/2025 09:28:30 02/27/20 25 02/27/2025 CBC WITH DIFFE RENTI AL/PL ATELE T RBC 4.07 x10e6 /uL 4.14-5 .80 below low normal Not Available [facility] ([facility]) [address] [place], [address], 02/27/2025 09:28:30 02/27/20 25 02/27/2025 CBC WITH DIFFE RENTI AL/PL ATELE T hemoglobin 12.9 g/dL 13.0-1 7.7 below low normal Not Available [facility] ([facility]) [address] [place], [address], 02/27/2025 09:28:30 02/27/20 25 02/27/2025 CBC WITH DIFFE RENTI AL/PL ATELE T hematocrit 38.3 % 37.5-5 1.0 normal Not Available [facility] ([facility]) [address] [place], [address], 02/27/2025 09:28:30 02/27/20 25 02/27/2025 CBC WITH DIFFE RENTI AL/PL ATELE T MCV 94 fL 79-97 normal Not Available [facility] ([facility]) [address] [place], [address], 02/27/2025 09:28:30 02/27/20 25 02/27/2025 CBC WITH DIFFE RENTI AL/PL ATELE T MCH 31.7 pg 26.6-3 3.0 normal Not Available [facility] ([facility]) [address] [place], [address], 02/27/2025 09:28:30 02/27/20 25 02/27/2025 CBC WITH DIFFE RENTI AL/PL ATELE T MCHC 33.7 g/dL 31.5-3 5.7 normal Not Available [facility] ([facility]) [address] [facility], [place], [address], 02/27/2025 09:28:30 02/27/20 25 02/27/2025 CBC WITH DIFFE RENTI AL/PL ATELE T RDW 12.4 % 11.6-1 5.4 Not Available [facility] ([facility]) [address] [facility], [place], [address], 02/27/2025 09:28:30 02/27/20 25 02/27/2025 CBC WITH DIFFE RENTI AL/PL ATELE T platelets 277 x10e3 /uL 150-45 0 normal Not Available [facility] ([facility]) [address] [place], [address], 02/27/2025 09:28:30 02/27/20 25 02/27/2025 CBC WITH DIFFE RENTI AL/PL ATELE T neutrophils 90 % not estab. normal Not Available [facility] ([facility]) [address] [place], [address], 02/27/2025 09:28:30 02/27/20 25 02/27/2025 CBC WITH DIFFE RENTI AL/PL ATELE T lymphs 6 % not estab. normal Not Available [facility] ([facility]) [address] [place], [address], 02/27/2025 09:28:30 02/27/20 25 02/27/2025 CBC WITH DIFFE RENTI AL/PL ATELE T monocytes 4 % not estab. normal Not Available [facility] ([facility]) [address] [place], [address], 02/27/2025 09:28:30 02/27/20 25 02/27/2025 CBC WITH DIFFE RENTI AL/PL ATELE T eos 0 % not estab. normal Not Available [facility] ([facility]) [address] [facility], [place], [address], 02/27/2025 09:28:30 02/27/20 25 02/27/2025 CBC WITH DIFFE RENTI AL/PL ATELE T basos 0 % not estab. normal Not Available [facility] ([facility]) [address] [facility], [place], [address], 02/27/2025 09:28:30 02/27/20 25 02/27/2025 CBC WITH DIFFE RENTI AL/PL ATELE T immature cells SAND SYSTEM OPERATOR Not Available [facility] ([facility]) [address] [facility], [place], [address], 02/27/2025 09:28:30 02/27/20 25 02/27/2025 CBC WITH DIFFE RENTI AL/PL ATELE T neutrophils (absolute) 12.9 x10e3 /uL 1.4-7. 0 above high normal Not Available [facility] ([facility]) [address] [facility], [place], [address], 02/27/2025 09:28:30 02/27/20 25 02/27/2025 CBC WITH DIFFE RENTI AL/PL ATELE T lymphs (absolute) 0.8 x10e3 /uL 0.7-3. 1 normal Not Available [facility] ([facility]) [address] [place], [address], 02/27/2025 09:28:30 02/27/20 25 02/27/2025 CBC WITH DIFFE RENTI AL/PL ATELE T monocytes(ab solute) 0.5 x10e3 /uL 0.1-0. 9 normal Not Available [facility] ([facility]) [address] [place], [address], 02/27/2025 09:28:30 02/27/20 25 02/27/2025 CBC WITH DIFFE RENTI AL/PL ATELE T eos (absolute) 0.0 x10e3 /uL 0.0-0. 4 normal Not Available [facility] ([facility]) [address] [facility], [place], [address], 02/27/2025 09:28:30 02/27/20 25 02/27/2025 CBC WITH DIFFE RENTI AL/PL ATELE T baso (absolute) 0.0 x10e3 /uL 0.0-0. 2 normal Not Available [facility] ([facility]) [address] [facility], [place], [address], 02/27/2025 09:28:30 02/27/20 25 02/27/2025 CBC WITH DIFFE RENTI AL/PL ATELE T immature granulocytes 0 % not estab. Not Available [facility] ([facility]) [address] [facility], [place], [address], 02/27/2025 09:28:30 02/27/20 25 02/27/2025 CBC WITH DIFFE RENTI AL/PL ATELE T immature grans (abs) 0.0 x10e3 /uL 0.0-0. 1 Not Available [facility] ([facility]) [address] [place], [address], 02/27/2025 09:28:30 02/27/20 25 02/27/2025 CBC WITH DIFFE RENTI AL/PL ATELE T NRBC SAND SYSTEM OPERATOR Not Available [facility] ([facility]) [address] [facility], [place], [address], 02/27/2025 09:28:30 02/27/20 25 02/27/2025 CBC WITH DIFFE RENTI AL/PL ATELE T hematology comments: SAND SYSTEM OPERATOR Not Available [facility] ([facility]) [address] [place], [address], 02/27/2025 09:28:30 02/27/20 25 02/27/2025 COMP. METAB OLIC PANEL (14) glucose 87 mg/dL 70-99 normal Not Available [facility] ([facility]) [address] [place], [address], 02/27/2025 09:28:30 02/27/20 25 02/27/2025 COMP. METAB OLIC PANEL (14) BUN 46 mg/dL 8-27 above high normal Not Available [facility] ([facility]) [address] [place], [address], 02/27/2025 09:28:30 02/27/20 25 02/27/2025 COMP. METAB OLIC PANEL (14) creatinine 2.05 mg/dL 0.76-1 .27 above high normal Not Available [facility] ([facility]) [address] [place], [address], 02/27/2025 09:28:30 02/27/20 25 02/27/2025 COMP. METAB OLIC PANEL (14) eGFR 33 mL/mi n/1.7 3 >59 below low normal Not Available [facility] ([facility]) [address] [place], [address], 02/27/2025 09:28:30 02/27/20 25 02/27/2025 COMP. METAB OLIC PANEL (14) BUN/creatini ne ratio 22 10-24 normal Not Available [facility] ([facility]) [address] [facility] [place], [address], 02/27/2025 09:28:30 02/27/20 25 02/27/2025 COMP. METAB OLIC PANEL (14) sodium 141 mmol/ L 134-14 4 normal Not Available [facility] ([facility]) [address] [place], [address], 02/27/2025 09:28:30 02/27/20 25 02/27/2025 COMP. METAB OLIC PANEL (14) potassium 4.6 mmol/ L 3.5-5. 2 normal Not Available [facility] ([facility]) [address] [place], [address], 02/27/2025 09:28:30 02/27/20 25 02/27/2025 COMP. METAB OLIC PANEL (14) chloride 106 mmol/ L 96-106 normal Not Available [facility] ([facility]) [address] [place], [address], 02/27/2025 09:28:30 02/27/20 25 02/27/2025 COMP. METAB OLIC PANEL (14) carbon dioxide, total 20 mmol/ L 20-29 normal Not Available [facility] ([facility]) [address] [place], [address], 02/27/2025 09:28:30 02/27/20 25 02/27/2025 COMP. METAB OLIC PANEL (14) calcium 10.1 mg/dL 8.6-10 .2 normal Not Available [facility] ([facility]) [address] [place], [address], 02/27/2025 09:28:30 02/27/20 25 02/27/2025 COMP. METAB OLIC PANEL (14) protein, total 6.7 g/dL 6.0-8. 5 normal Not Available [facility] ([facility]) [address] [place], [address], 02/27/2025 09:28:30 02/27/20 25 02/27/2025 COMP. METAB OLIC PANEL (14) albumin 4.2 g/dL 3.8-4. 8 normal Not Available [facility] ([facility]) [address] [place], [address], 02/27/2025 09:28:30 02/27/20 25 02/27/2025 COMP. METAB OLIC PANEL (14) globulin, total 2.5 g/dL 1.5-4. 5 Not Available [facility] ([facility]) [address] [place], [address], 02/27/2025 09:28:30 02/27/20 25 02/27/2025 COMP. METAB OLIC PANEL (14) bilirubin, total 0.2 mg/dL 0.0-1. 2 normal Not Available [facility] ([facility]) [address] [place], [address], 02/27/2025 09:28:30 02/27/20 25 02/27/2025 COMP. METAB OLIC PANEL (14) alkaline phosphatase 79 IU/L 44-121 normal Not Available [facility] ([facility]) [address] [place], [address], 02/27/2025 09:28:30 02/27/20 25 02/27/2025 COMP. METAB OLIC PANEL (14) AST (SGOT) 19 IU/L 0-40 normal Not Available [facility] ([facility]) [address] [place], [address], 02/27/2025 09:28:30 02/27/20 25 02/27/2025 COMP. METAB OLIC PANEL (14) ALT (SGPT) 17 IU/L 0-44 normal Not Available [facility] ([facility]) [address] [place], [address], 02/27/2025 09:28:30 02/27/20 25 02/27/2025 LIPID PANEL cholesterol, total 192 mg/dL 100-19 9 normal Not Available [facility] ([facility]) [address] [place], [address], 02/27/2025 09:28:31 02/27/20 25 02/27/2025 LIPID PANEL triglyceride s 51 mg/dL 0-149 normal Not Available [facility] ([facility]) [address] [place], [address], 02/27/2025 09:28:31 02/27/20 25 02/27/2025 LIPID PANEL HDL cholesterol 65 mg/dL >39 normal Not Available [facility] ([facility]) [address] [facility], [place], [address], 02/27/2025 09:28:31 02/27/20 25 02/27/2025 LIPID PANEL VLDL cholesterol sharona 10 mg/dL 5-40 Not Available [facility] ([facility]) [address] [facility], [place], [address], 02/27/2025 09:28:31 02/27/20 25 02/27/2025 LIPID PANEL LDL chol calc ([facility]) 117 mg/dL 0-99 above high normal Not Available [facility] ([facility]) [address] [facility], [place], [address], 02/27/2025 09:28:31 02/27/20 25 02/27/2025 LIPID PANEL 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 Not Available [facility] ([facility]) [address] [facility], [place], [address], 02/27/2025 09:28:31 02/27/20 25 02/27/2025 HCV ANTIB JAIME CASCA DE(PC R/GEN O) HCV Ab Non Reacti ve non reacti ve Not Available [facility] ([facility]) [address] [facility], [place], [address], 02/27/2025 09:28:31 02/27/2002/27/2025 HCV ANTIB JAIME CASCA DE(PC R/GEN O) interpretati on: Commen t Not infec dacia with HCV unles s early or acute infec tion is suspe cted (whic h may be delay ed in an immun ocomp romis ed indiv idual ), or other evide nce exist s to indic ate HCV infec tion. Not Available [facility] ([facility]) [address] [facility], [place], [address], 02/27/2025 09:28:31 02/27/20 25 02/27/2025 HEMOG LOBIN A1C hemoglobin A1C 7.2 % 4.8-5. 6 above high normal Predi abete s: 5.7 - 6.4 Diabe aguila: >6.4 Glyce blade contr ol for adult s with diabe aguila: <7.0 Not Available [facility] ([facility]) [address] [facility], [place], [address], 02/27/2025 09:28:32 02/27/2002/27/2025 PROST ATE-S PECIF IC AG prostate specific Ag 1.1 NG/mL 0.0-4. 0 normal Cipriano ECLIA metho dolog y. Accor ding to the Ameri can [employer]o g[employer] iatio n, Serum PSA shoul d decre ase and remai n at undet ectab le level s after radic al prost atect salome. The AUA defin es bioch emica l recur rence as an initi al PSA value 0.2 ng/mL or great er follo wed by a subse quent confi rmato ry PSA value 0.2 ng/mL or great er. Value s obtai yolande with diffe rent assay metho ds or kits canno t be used inter reynoso eably . Resul ts canno t be inter prete d as absol saxman evide nce of the prese nce or absen ce of yokasta gonzalez se. Not Available [facility] ([facility]) [address] [facility], [place], [address], 02/27/2025 09:28:32 03/21/2003/21/2025 urina lysis , dipst ick Leukocytes Negati ve Not Available [address], [address], 03/21/2025 17:43:51 03/21/20 25 03/21/2025 urina lysis , dipst ick Nitrite negati ve Not Available [address], [address], 03/21/2025 17:43:51 03/21/20 25 03/21/2025 urina lysis , dipst ick Urobilinogen .2 Not Available [address], [address], 03/21/2025 17:43:51 03/21/20 25 03/21/2025 urina lysis , dipst ick Protein 30 Not Available [address], [address], 03/21/2025 17:43:51 03/21/20 25 03/21/2025 urina lysis , dipst ick pH 5.5 Not Available [address], [address], 03/21/2025 17:43:51 03/21/20 25 03/21/2025 urina lysis , dipst ick Blood Hemoly zed: Trace Not Available [address], [address], 03/21/2025 17:43:51 03/21/20 25 03/21/2025 urina lysis , dipst ick Specific [facility] 1.025 Not Available [address], [address], 03/21/2025 17:43:51 03/21/20 25 03/21/2025 urina lysis , dipst ick Ketone Negati ve Not Available [address], [address], 03/21/2025 17:43:51 03/21/20 25 03/21/2025 urina lysis , dipst ick Bilirubin Negati ve Not Available [address], [address], 03/21/2025 17:43:51 03/21/20 25 03/21/2025 urina lysis , dipst ick Glucose Negati ve Not Available [address], [place], [address], 03/21/2025 17:43:51 04/18/20 25 04/19/2025 CBC WITH DIFFE RENTI AL/PL ATELE T WBC 5.3 x10e3 /uL 3.4-10 .8 normal Not Available [facility] ([facility]) [address] [place], [address], 04/19/2025 05:06:43 04/18/20 25 04/19/2025 CBC WITH DIFFE RENTI AL/PL ATELE T RBC 4.07 x10e6 /uL 4.14-5 .80 below low normal Not Available [facility] ([facility]) [address] [place], [address], 04/19/2025 05:06:43 04/18/20 25 04/19/2025 CBC WITH DIFFE RENTI AL/PL ATELE T hemoglobin 12.5 g/dL 13.0-1 7.7 below low normal Not Available [facility] ([facility]) [address] [place], [address], 04/19/2025 05:06:43 04/18/20 25 04/19/2025 CBC WITH DIFFE RENTI AL/PL ATELE T hematocrit 39.9 % 37.5-5 1.0 normal Not Available [facility] ([facility]) [address] [place], [address], 04/19/2025 05:06:43 04/18/20 25 04/19/2025 CBC WITH DIFFE RENTI AL/PL ATELE T MCV 98 fL 79-97 above high normal Not Available [facility] ([facility]) [address] [place], [address], 04/19/2025 05:06:43 04/18/20 25 04/19/2025 CBC WITH DIFFE RENTI AL/PL ATELE T MCH 30.7 pg 26.6-3 3.0 normal Not Available [facility] ([facility]) [address] [place], [address], 04/19/2025 05:06:43 04/18/20 25 04/19/2025 CBC WITH DIFFE RENTI AL/PL ATELE T MCHC 31.3 g/dL 31.5-3 5.7 below low normal Not Available [facility] ([facility]) [address] [facility], [place], [address], 04/19/2025 05:06:43 04/18/20 25 04/19/2025 CBC WITH DIFFE RENTI AL/PL ATELE T RDW 12.5 % 11.6-1 5.4 Not Available [facility] ([facility]) [address] [facility], [place], [address], 04/19/2025 05:06:43 04/18/20 25 04/19/2025 CBC WITH DIFFE RENTI AL/PL ATELE T platelets 236 x10e3 /uL 150-45 0 normal Not Available [facility] ([facility]) [address] [facility], [place], [address], 04/19/2025 05:06:43 04/18/20 25 04/19/2025 CBC WITH DIFFE RENTI AL/PL ATELE T neutrophils 62 % not estab. normal Not Available [facility] ([facility]) [address] [place], [address], 04/19/2025 05:06:43 04/18/20 25 04/19/2025 CBC WITH DIFFE RENTI AL/PL ATELE T lymphs 25 % not estab. normal Not Available [facility] ([facility]) [address] [place], [address], 04/19/2025 05:06:43 0504/19/2025 CBC WITH DIFFE RENTI AL/PL ATELE T monocytes 6 % not estab. normal Not Available [facility] ([facility]) [address] [place], [address], 04/19/2025 05:06:43 04/18/20 25 04/19/2025 CBC WITH DIFFE RENTI AL/PL ATELE T eos 6 % not estab. normal Not Available [facility] ([facility]) [address] [facility], [place], [address], 04/19/2025 05:06:43 04/18/20 25 04/19/2025 CBC WITH DIFFE RENTI AL/PL ATELE T basos 1 % not estab. normal Not Available [facility] ([facility]) [address] [facility], [place], [address], 04/19/2025 05:06:43 04/18/20 25 04/19/2025 CBC WITH DIFFE RENTI AL/PL ATELE T immature cells SAND SYSTEM OPERATOR Not Available [facility] ([facility]) [address] [place], [address], 04/19/2025 05:06:43 04/18/20 25 04/19/2025 CBC WITH DIFFE RENTI AL/PL ATELE T neutrophils (absolute) 3.3 x10e3 /uL 1.4-7. 0 normal Not Available [facility] ([facility]) [address] [place], [address], 04/19/2025 05:06:43 04/18/20 25 04/19/2025 CBC WITH DIFFE RENTI AL/PL ATELE T lymphs (absolute) 1.3 x10e3 /uL 0.7-3. 1 normal Not Available [facility] ([facility]) [address] [place], [address], 04/19/2025 05:06:43 04/18/20 25 04/19/2025 CBC WITH DIFFE RENTI AL/PL ATELE T monocytes(ab solute) 0.3 x10e3 /uL 0.1-0. 9 normal Not Available [facility] ([facility]) [address] [place], [address], 04/19/2025 05:06:43 04/18/20 25 04/19/2025 CBC WITH DIFFE RENTI AL/PL ATELE T eos (absolute) 0.3 x10e3 /uL 0.0-0. 4 normal Not Available [facility] ([facility]) [address] [facility], [place], [address], 04/19/2025 05:06:43 04/18/20 25 04/19/2025 CBC WITH DIFFE RENTI AL/PL ATELE T baso (absolute) 0.1 x10e3 /uL 0.0-0. 2 normal Not Available [facility] ([facility]) [address] [place], [address], 04/19/2025 05:06:43 04/18/20 25 04/19/2025 CBC WITH DIFFE RENTI AL/PL ATELE T immature granulocytes 0 % not estab. Not Available [facility] ([facility]) [address] [place], [address], 04/19/2025 05:06:43 04/18/20 25 04/19/2025 CBC WITH DIFFE RENTI AL/PL ATELE T immature grans (abs) 0.0 x10e3 /uL 0.0-0. 1 Not Available [facility] ([facility]) [address] [place], [address], 04/19/2025 05:06:43 04/18/20 25 04/19/2025 CBC WITH DIFFE RENTI AL/PL ATELE T NRBC SAND SYSTEM OPERATOR Not Available [facility] ([facility]) [address] [place], [address], 04/19/2025 05:06:43 04/18/20 25 04/19/2025 CBC WITH DIFFE ANNABELLE AL/PL CARLEENLE T hematology comments: SAND SYSTEM OPERATOR Not Available [facility] ([facility]) [address] [facility], [place], [address], 04/19/2025 05:06:43 04/18/20 25 04/19/2025 COMP. METAB OLIC PANEL (14) glucose 121 mg/dL 70-99 above high normal Not Available [facility] ([facility]) [address] [place], [address], 04/19/2025 05:06:44 04/18/20 25 04/19/2025 COMP. METAB OLIC PANEL (14) BUN 35 mg/dL 8-27 above high normal Not Available [facility] ([facility]) [address] [facility], [place], [address], 04/19/2025 05:06:44 04/18/20 25 04/19/2025 COMP. METAB OLIC PANEL (14) creatinine 2.02 mg/dL 0.76-1 .27 above high normal Not Available [facility] ([facility]) [address] [place], [address], 04/19/2025 05:06:44 04/18/20 25 04/19/2025 COMP. METAB OLIC PANEL (14) eGFR 34 mL/mi n/1.7 3 >59 below low normal Not Available [facility] ([facility]) [address] [place], [address], 04/19/2025 05:06:44 04/18/20 25 04/19/2025 COMP. METAB OLIC PANEL (14) BUN/creatini ne ratio 17 10-24 normal Not Available [facility] ([facility]) [address] [place], [address], 04/19/2025 05:06:44 04/18/20 25 04/19/2025 COMP. METAB OLIC PANEL (14) sodium 142 mmol/ L 134-14 4 normal Not Available [facility] ([facility]) [address] [place], [address], 04/19/2025 05:06:44 04/18/20 25 04/19/2025 COMP. METAB OLIC PANEL (14) potassium 4.5 mmol/ L 3.5-5. 2 normal Not Available [facility] ([facility]) [address] [place], [address], 04/19/2025 05:06:44 04/18/20 25 04/19/2025 COMP. METAB OLIC PANEL (14) chloride 107 mmol/ L 96-106 above high normal Not Available [facility] ([facility]) [address] [place], [address], 04/19/2025 05:06:44 04/18/20 25 04/19/2025 COMP. METAB OLIC PANEL (14) carbon dioxide, total 17 mmol/ L 20-29 below low normal Not Available [facility] ([facility]) [address] [place], [address], 04/19/2025 05:06:44 04/18/20 25 04/19/2025 COMP. METAB OLIC PANEL (14) calcium 9.6 mg/dL 8.6-10 .2 normal Not Available [facility] ([facility]) [address] [place], [address], 04/19/2025 05:06:44 04/18/20 25 04/19/2025 COMP. METAB OLIC PANEL (14) protein, total 6.5 g/dL 6.0-8. 5 normal Not Available [facility] ([facility]) [address] [place], [address], 04/19/2025 05:06:44 04/18/20 25 04/19/2025 COMP. METAB OLIC PANEL (14) albumin 4.3 g/dL 3.8-4. 8 normal Not Available [facility] ([facility]) [address] [place], [address], 04/19/2025 05:06:44 04/18/20 25 04/19/2025 COMP. METAB OLIC PANEL (14) globulin, total 2.2 g/dL 1.5-4. 5 Not Available [facility] ([facility]) [address] [place], [address], 04/19/2025 05:06:44 04/18/20 25 04/19/2025 COMP. METAB OLIC PANEL (14) bilirubin, total 0.6 mg/dL 0.0-1. 2 normal Not Available [facility] ([facility]) [address] [place], [address], 04/19/2025 05:06:44 04/18/20 25 04/19/2025 COMP. METAB OLIC PANEL (14) alkaline phosphatase 71 IU/L 44-121 normal Not Available [facility] ([facility]) [address] [place], [address], 04/19/2025 05:06:44 04/18/20 25 04/19/2025 COMP. METAB OLIC PANEL (14) AST (SGOT) 23 IU/L 0-40 normal Not Available [facility] ([facility]) [address] [place], [address], 04/19/2025 05:06:44 04/18/20 25 04/19/2025 COMP. METAB OLIC PANEL (14) ALT (SGPT) 17 IU/L 0-44 normal Not Available [facility] ([facility]) [address] [place], [address], 04/19/2025 05:06:44 04/18/20 25 04/19/2025 LIPID PANEL cholesterol, total 139 mg/dL 100-19 9 normal Not Available [facility] ([facility] [address] [facility] [place] [address], 04/19/2025 05:06:45 04/18/20 25 04/19/2025 LIPID PANEL triglyceride s 60 mg/dL 0-149 normal Not Available [facility] ([facility]) [address] [place], [address], 04/19/2025 05:06:45 04/18/20 25 04/19/2025 LIPID PANEL HDL cholesterol 57 mg/dL >39 normal Not Available [facility] ([facility]) [address] [place], [address], 04/19/2025 05:06:45 04/18/20 25 04/19/2025 LIPID PANEL VLDL cholesterol sharona 13 mg/dL 5-40 Not Available [facility] ([facility]) [address] [place], [address], 04/19/2025 05:06:45 04/18/20 25 04/19/2025 LIPID PANEL LDL chol calc ([facility]) 69 mg/dL 0-99 Not Available [facility] ([facility]) [address] [place], [address], 04/19/2025 05:06:45 04/18/20 25 04/19/2025 LIPID PANEL 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 Not Available [facility] ([facility]) [address] [place], [address], 04/19/2025 05:06:45 04/18/20 25 04/24/2025 IRON AND TIBC iron bind.cap.(TI BC) 300 ug/dL 250-45 0 normal Not Available [facility] ([facility]) [address] [place], [address], 04/24/2025 04:07:12 04/18/20 25 04/24/2025 IRON AND TIBC UIBC 183 ug/dL 111-34 3 normal Not Available [facility] ([facility]) [address] [place], [address], 04/24/2025 04:07:12 04/18/20 25 04/24/2025 IRON AND TIBC iron 117 ug/dL 38-169 normal Not Available [facility] ([facility]) [address] [facility], [place], [address], 04/24/2025 04:07:12 04/18/20 25 04/24/2025 IRON AND TIBC iron saturation 39 % 15-55 normal Not Available [facility] ([facility]) [address] [facility], [place], [address], 04/24/2025 04:07:12 04/18/20 25 04/23/2025 MARY EN AUTHO RIZAT ION written authorizatio n Commen t Mary en Autho rizat ion Recei noel. Autho rizat ion recei noel from MARY [facility] 04-23 Logge d by Sandeep Nieto an Not Available [facility] ([facility]) [address] [facility], [place], [address], 04/24/2025 04:07:12 04/18/20 25 04/18/2025 HbA1c (hemo globi n A1c), blood HbA1c 6.7 Not Available [address], [address], 04/18/2025 09:43:05 05/16/20 25 05/16/2025 HbA1c (hemo globi n A1c), blood HbA1c 6.8 Not Available [address], [address], 05/16/2025 13:26:07 01/17/20 25 01/17/2025 CT, abdom en + pelvi s, w/o contr ast No observ ation record ed. [facility] (Radiology) [address] , [place], [address], 01/20/2025 08:45:00 02/20/20 25 02/19/2025 XR, shoul crissy, 2 or more view No observ ation record ed. [address] (Radiology) [address] , [place], [address], 02/21/2025 10:25:13 02/20/20 25 02/19/2025 XR, shoul crissy, 2 or more view No observ ation record ed. [address] (Radiology) [address] , [place], [address], 02/21/2025 10:24:46 05/07/20 25 05/05/2025 XR, abdom en No observ ation record ed. [facility] [address], [place], [address], 05/07/2025 09:42:29 Result Notes None recorded. Problems Name Problem SNOMED Code Status Onset Date Resolution Date Notes Provider Name and Address Organization Details Recorded Time Infection of toe 086978616 Completed 202310/31/2024 Samantha Vallecillo NP [address] [place] [address], [address], [employer] 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 4 12:09:13 Type 2 diabetes mellitus without complicatio n 639040254 Completed 202303/21/2025 Samantha Vallecillo NP [address] [place] [address], [address], [employer] 5 10:01:28 Gastroesoph ageal reflux disease without esophagitis 860739088 Active 2023 Samantha Vallecillo NP [address] [place] [address], [address], [employer] 4 12:09:07 Chronic gouty arthritis 45077894 Active 2023 Samantha Vallecillo NP [address] [place] [address], [address], [employer] 4 12:09:05 Body mass index 30+ - obesity 772706616 Active 2023 Samantha Vallecillo NP [address] [place] [address], [address], [employer] 4 12:09:30 Hypertensiv e disorder 61409206 Active 2023 Samantha Vallecillo NP [address] [place] [address], [address], [employer] 4 12:09:25 Hyperlipide miguel 49715758 Active 2024 Samantha Vallecillo NP [address] [place] [address], [address] 8, [employer] 5 09:07:34 Adjustment disorder with depressed mood 65184033 Active 2024 Samantha Vallecillo NP [address] [place] [address], [address], [employer] 5 09:07:38 Chronic kidney disease 876128920 Active 2024 Samantha Vallecillo NP [address] [place] [address], [address], [employer] 5 09:59:50 Type 2 diabetes mellitus 77391351 Active 2024 Samantha Vallecillo NP [address] [place] [address], [address] 8, [employer] 5 10:01:21 Dizziness 072912059 Active 2024 Samantha Vallecillo NP [address] [place] [address], [address] 8, [employer] 5 10:13:57 Anemia 091555186 Active 2024 Samantha Vallecillo NP [address] [place] [address], [address] 8, [employer] 13:03:12 Kidney stone 76167423 Active 2024 Samantha Vallecillo NP [address] [place], [address], [employer] 16:08:49 Chronic low back pain 709043801 Active 2024 Samantha Vallecillo NP [address] [place], [address], [employer] 13:48:49 Urinary incontinenc e 666762952 Active 2024 Samantha Vallecillo NP [address] [place], [address], [employer] 14:07:05 Problem Notes None recorded. Procedures Surgical History Date Name Laterality Status Provider Name and Address Organization Details Recorded Time complete repair of rotator cuff completed [employer] 07/03/2024 12:06:07 procedure on nerve completed [employer] 07/03/2024 12:06:55 total knee replacement completed [employer] 07/03/2024 12:07:10 Appendectomy completed [employer] 07/03/2024 12:07:17 total replacement of hip completed [employer] 07/03/2024 12:07:28 Imaging Results None recorded. Procedure [...] saturation in Arterial blood by Pulse oximetry Body temperature Systolic blood pressure Diastolic blood pressure Provider Name and Address Organization Details Last Updated DateTime 5 175.26 cm 31.5 kg/m2 90392.9 7 g 76 /min 99 % 99 % 98.4 [degF] 136 mm[Hg] 74 mm[Hg] [employer] [employer] 5 11:07:04 Date Recorded Body height Body mass index (BMI) Body weight Heart rate Oxygen saturation Oxygen saturation in Arterial blood by Pulse oximetry Systolic blood pressure Diastolic blood pressure Provider Name and Address Organization Details Last Updated DateTime 5 175.26 cm 31.5 kg/m2 53962.1 7 g 90 /min 96 % 96 % 133 mm[Hg] 87 mm[Hg] [employer] 5 08:59:45 Date Recorded Body height Body mass index (BMI) Body weight Heart rate Oxygen saturation Oxygen saturation in Arterial blood by Pulse oximetry Systolic blood pressure Diastolic blood pressure Provider Name and Address Organization Details Last Updated DateTime 5 175.26 cm 31.2 kg/m2 19457.0 9 g 92 /min 98 % 98 % 139 mm[Hg] 76 mm[Hg] [facility] 5 09:58:30 Date Recorded Body height Body mass index (BMI) Body weight Heart rate Oxygen saturation Oxygen saturation in Arterial blood by Pulse oximetry Systolic blood pressure Diastolic blood pressure Provider Name and Address Organization Details Last Updated DateTime 5 175.26 cm 31.2 kg/m2 12879.0 9 g 70 /min 98 % 98 % 139 mm[Hg] 79 mm[Hg] [email or web address] 5 09:42:09 Date Recorded Body height Body mass index (BMI) Body weight Heart rate Oxygen saturation Oxygen saturation in Arterial blood by Pulse oximetry Systolic blood pressure Diastolic blood pressure Provider Name and Address Organization Details Last Updated DateTime 5 175.26 cm 30.6 kg/m2 85497.3 2 g 106 /min 94 % 94 % 124 mm[Hg] 77 mm[Hg] [email or web address] 5 13:15:48 Social History Question Answer Notes LastModified by Organizat ion Details LastModified Time Tobacco Smoking Status Never Smoker Griselda yeung [facility] 07/03/2024 12:05:06 Is Your Home Air [...] Of Your Most Recent Tobacco Screening? 05/16/2025 Information not available 05/16/2025 What Is Your [...] Do You Participate In Social Media? Yes [email or web address] Information not available 10/31/2024 Has Tobacco Cessation Counseling Been Provided? No Information not available 07/03/2024 Have You Recently Traveled Abroad? No Information not available 07/03/2024 Do You Have Difficulty Walking Or Climbing Stairs? Yes Information not available 07/03/2024 Are You Currently In School? No [email or web address] Information not available 10/31/2024 Do You Have Any Dietary Restrictions? Yes [email or web address] Information not available 10/31/2024 Sex: Male Functional Status Question Answer Note LastModified by Organizat ion Details LastModified Time Do you use any illicit or recreational drugs? No Information not available 07/03/2024 Do you or have you ever used any other forms of tobacco or nicotine? No [email or web address] Information not available 10/31/2024 What is your level of alcohol consumption? None Information not available 07/03/2024 Are you currently employed? No Information not available 07/03/2024 Do you have transportation difficulties? No [email or web address] Information not available 10/31/2024 Are you able [...] anxious, or unable to sleep at night)? [id number] [email or web address] Information not available 10/31/2024 Do you have difficulty concentrating, remembering or making decisions? No Information no t available 07/03/2024 Family History Nothing Reported. Medical History Condition Response Hospitalizations N Diabetes Y Gout Y Emergency room visit since last appointm ent. N Hypertension Y Immunizations Vaccine Type Date Status Note Provider Nam e and Address Organization Details Recorded Time Influenza, high-dose, trivalent, PF 4 completed Samantha Vallecillo NP [address] [place] [address], [address], [facility], [facility]. 11/02/2024 09:27:35 zoster recombinant 5 completed Samantha Vallecillo, BONI [address] [place], [address], [employer] 03/05/2025 13:28:44 Influenza, adjuvanted, trivalent, PF 7 completed Griselda Kinder null, [employer] 07/03/2024 11:45:29 Influenza, MDCK, quadrivalent, PF 8 completed Griselda Kinder null, [employer] 07/03/2024 11:45:29 Influenza, high-dose, quadrivalent, PF 0 completed Griselda Kinder null, [employer] 07/03/2024 11:45:30 Influenza, high-dose, quadrivalent, PF 1 completed Griselda Kinder null, [employer] 07/03/2024 11:45:30 Influenza, high-dose, quadrivalent, PF 2 completed Griselda Kinder null, [employer] 07/03/2024 11:45:30 Influenza, high-dose, quadrivalent, PF 3 completed Griselda Kinder null, [employer] 07/03/2024 11:45:30 COVID-19, mRNA, LNP-S, PF, 100 mcg/0.5mL dose or 50 mcg/0.25mL dose 1 completed Griselda Kinder null, [employer] 07/03/2024 11:45:30 COVID-19, mRNA, LNP-S, PF, 100 mcg/0.5mL dose or 50 mcg/0.25mL dose 1 completed Griselda Kinder null, [employer] 07/03/2024 11:45:30 Pneumococcal conjugate PCV 13 8 completed Griselda Kinder null, [employer] 07/03/2024 11:45:30 Past Encounters Encounter ID Performer Location Encounter Start Date Encounter Closed Date Diagnosis/Indication Diagnosis SNOMED-CT Code Diagnosis ICD10 Code Diagnosis Note [id number] [place] [address] 07/03/2024 11:33:53 07/03/2024 12:37:25 Infection of toe 556051467 L08.9 Onychomyco sis of toenails 750764091 B35.1 [id number] Samantha VallecilloBONI [address] 0 10/31/2024 10:57:05 10/31/2024 13:26:50 Type 2 diabetes mellitus without complication 001878475 E11.9 Body mass index 30+ - obesity 494488899 Z68.31 Hypertensive disorder 38 623295 I10 Chronic go uty arthritis 40019027 M1A.00X0 Gastroesop hageal reflux disease without esophagitis 004605740 K21.9 Screening for cardiovascular system disease 888655488 Z13.6 Active or passive immunization 733482847 Z23 [id number] Samantha Vallecillo NP [place] [id number] 01/30/2025 10:50:59 01/30/2025 12:11:12 Hyperlipidemia 20455935 E78.5 Type 2 ekaterina betes mellitus without complication 382985218 E11.9 Hypertensive disorder 38 185074 I10 Adult heal th examination 738871752 Z00.00 Adjustment disorder with depressed mood 17550161 F43.21 Body mass index 30+ - obesity 197869296 Z68.31 [id number] Samantha Vallecillo NP [place] [phone] 02/26/2025 08:39:43 02/26/2025 09:34:34 Hypertensive disorder 12618132 I10 Type 2 ekaterina betes mellitus without complication 494051442 E11.9 Hyperlipidemia 10038793 E78.5 Hepatitis C screening 41 4711471 Z11.59 Screening for malignant neoplasm of prostate 348114895 Z12.5 Active or passive immunization 225063878 Z23 [id number] Samantha Vallecillo NP [place] [address] 03/21/2025 09:21:29 03/21/2025 10:43:45 Type 2 diabetes mellitus 68105391 E11.22 N18.32 Hyperlipidemia 33918974 E78.5 Hypertensive disorder 38 618873 I10 [id number] Samantha Vallecillo, BONI [place] [address] 04/18/2025 09:22:01 04/18/2025 10:38:04 Type 2 diabetes mellitus 18074863 E11.22 N18.32 Dizziness 829481643 R42 Hyperlipidemia 05373865 E78.5 Chronic ki dney disease 296346894 N18.9 [id number] Samantha Vallecillo, BONI [place] [address] 05/16/2025 12:32:57 05/16/2025 14:23:00 Type 2 diabetes mellitus 09601732 E11.22 N18.32 Chronic low back pain 27 9695155 M54.42 G89.29 Urinary incontinence 165 114068 N39.498 Health Concerns Section Related Observation LastModified by Organization Detai ls LastModified Time None Recorded Concern Status LastModified by Organization Details LastModified Time None Recorded Advance Directives Directive None Recorded Payers Insurance Date Sequence Insurance Name Policy Number Policy Muhammad Covered Member ID Muhammad Member ID Guarantor Name 05/16/2025 [place] [employer] - [facility] Addison J Peguero [id number] Addison Peguero 05/16/2025 1 [place] Addison J Peguero [id number] Addison Peguero 05/09/2025 1 [place] [employer] [place] [facility] Addison Peguero [id number] Addison Peguero 05/13/2025 2 [employer] (MEDICARE SUPPLEMENT) Addison J Peguero [id number] Addison Peguero 05/08/2025 SLIDING FEE SCHEDULE - DISCOUNT Addison Peguero Notes Date Note Type Note Provider Name and Address Organization Details Recorded Time 01/30/2025 text/html Patient presents for MWV.He has a kidney stone currently and is pending surgery TBS. Has had incontinence since he has this kidney stone. has dementia. He has a lot of stress taking care of her. He does feels sad sometimes but mostly tired. He does not want anything for depression. They are thinking about getting his in [facility] at some point. He feels that with his daughters' help they do okay at home, but he does feel fatigued with the situation at times. Samantha Vallecillo NP [address] [place], [address], [employer]. 01/31/2025 13:14:22 02/26/2025 text/html Pt. presents for follow up.Colonoscopy 06/09/24 per Reema's last visit note. Previous PCP.Diabetic foot and eye exams to be scheduled. He sees podiatry for foot exam. [facility] Pod[facility] notes - goes regularlyHis is going to the [facility]. This has alleviated some of his stress.He continues to have some flank pain but it has improved. Samantha Vallecillo NP [address], [address], [employer]. 03/05/2025 13:32:46 03/21/2025 text/html Patient presents for evaluation of incontinence (urinary). States he has had incontinence for some time now since his most recent episode of kidney stones. He is not scheduled to see urology until 04/17. He does not have pain with urination, just the same ongoing left flank pain. He states it is no worse than before, it is just bothering him that it is not improving after surgery and he is incontinent now. He was started on a new med by urology for incontinence, but he has not seen any difference while taking it. He has not had a fever or chills. Carolyn yeung, [employer]. 03/22/2025 12:05:49 04/18/2025 text/html Patient presents for diabetes follow up and to discuss dizziness. He seems to be getting dizzy after he takes his glipizide. He took jardiance in the past, but insurance wouldn't cover his medication. He is wondering if we could try that again.States he goes back on the 05/05 to urology. They are going to do a cystoscopy. He has continued incontinence.Luz nued stress at home. 's psych eval went well, still working on getting her into [facility]. Samantha Vallecillo, BONI [address] [place] [address], [address], [facility] [employer] [facility] 04/21/2025 09:44:42
--- OUTSIDE RECORDS SUMMARY | 2025-05-16 16:48 | XMS_ITS | Continuity of Care Document ---
Author Organization [facility] Awa morton [facility] Address [address] [place] [address] Care Team Providers Care Infection Control Practitioner Name Role Phone DICK ROBERTS Primary Care Provider CANELO LEWIS Primary Care Provider [phone] Assessment Encounter Date Assessment Date Assessment LastModified by Organization Details LastModified Time 03/27/2025 03/27/2025 - 74 year old male with history of benign prostatic hyperplasia presenting with urinary incontinence. - Incontinence potentially related to stent intervention. - Evaluate for bladder outlet obstruction and capacity issues. [email or web address] Not available 03/27/2025 14:15:08 Plan of Treatment Reminders Order Date Submit Date Provider Last Modified By Organization Details Last Modified Time Details Appointments RECHECK 2024 01:30P Ken WELLS MD Not available Not available Not available Lab urinalysi s panel, auto 2024 025 [email or web address] 4 [facility], [address] [place] [address] Dr [address], [place], [address], 03/27/2025 14:13:13 Referral None recorded. Procedures None recorded. Surgeries None recorded. Imaging None recorded. Medication Orders tamsulosi n 0.4 mg capsule 2024 025 KEERTHI [facility], [address] [place], [address], 03/27/2025 14:14:26 solifenac in 10 mg tablet 2024 025 KEERTHI [facility], [address] [place], [address], 05/05/2025 16:44:25 Patient TargetsNo targets recorded. Patient Instructions Encounter Date Encounter Id Patient Instructions Last Modified By Organization Details Last Modified Time 03/27/2025 [id number] - Stop taking Gemtesa. - Increase tamsulosin to two pills daily. - Come back for an ultrasound to check your bladder and let's see how you're doing. - Note if sitting on hard surfaces helps, and let us know about any changes. - Keep track of how often you leak or need to use the bathroom at night. [email or web address] Not available 03/27/2025 14:15:11 Reason for Referral None Reported. Results Created Date Observation Date Name Description Value Unit Range Abnormal Flag Note LastModifiedBy Organization Detail LastModifiedTime 03/27/2003/27/2025 urina lysis panel , auto Unknown Analyte Clean Catch Not Available Count includes the [facility] With [address]ell, [place], [address], 03/27/2025 14:04:44 03/27/20 25 03/27/2025 urina lysis panel , auto Unknown Analyte Yellow Not Available [facility] Extended Services With [address]ell, [place], [address], 03/27/2025 14:04:44 03/27/20 25 03/27/2025 urina lysis panel , auto Unknown Analyte Clear Not Available [facility] Extended [facility] With [address]ell, [place], [address], 03/27/2025 14:04:44 03/27/20 25 03/27/2025 urina lysis panel , auto Unknown Analyte 1.020 Not Available [facility] Extended [facility] With [address], [place], [address], 03/27/2025 14:04:44 03/27/20 25 03/27/2025 urina lysis panel , auto Unknown Analyte 1.003 - 1.030 Not Available [facility] Extended Services With [address] [place], [address], 03/27/2025 14:04:44 03/27/20 25 03/27/2025 urina lysis panel , auto Unknown Analyte 5.0 Not Available [facility] Extended [facility] With [address] [place], [address], 03/27/2025 14:04:44 03/27/20 25 03/27/2025 urina lysis panel , auto Unknown Analyte 5.0 - 8.0 Not Available [facility] Extended Services With [address] [place], [address], 03/27/2025 14:04:44 03/27/20 25 03/27/2025 urina lysis panel , auto Unknown Analyte Negati ve Not Available [facility] With [address] [place], [address], 03/27/2025 14:04:44 03/27/20 25 03/27/2025 urina lysis panel , auto Unknown Analyte Negati ve Not Available [facility] With [address] [place], [address], 03/27/2025 14:04:44 03/27/20 25 03/27/2025 urina lysis panel , auto Unknown Analyte Negati ve Not Available [facility] With [address] [place], [address], 03/27/2025 14:04:44 03/27/20 25 03/27/2025 urina lysis panel , auto Unknown Analyte Negati ve Not Available [facility] With [address] [place], [address], 03/27/2025 14:04:44 03/27/20 25 03/27/2025 urina lysis panel , auto Unknown Analyte Negati ve Not Available [facility] With [address] [place], [address], 03/27/2025 14:04:44 03/27/20 25 03/27/2025 urina lysis panel , auto Unknown Analyte Negati ve Not Available [facility] With [address] [place], [place], [address], 03/27/2025 14:04:44 03/27/20 25 03/27/2025 urina lysis panel , auto Unknown Analyte Normal Not Available [facility] Extended Services With [address] [place], [address], 03/27/2025 14:04:44 03/27/20 25 03/27/2025 urina lysis panel , auto Unknown Analyte Normal Not Available [facility] Extended Services With [address]ell, [place], [address], 03/27/2025 14:04:44 03/27/20 25 03/27/2025 urina lysis panel , auto Unknown Analyte Negati ve Not Available [facility] Extended Services With [address] [place], [address], 03/27/2025 14:04:44 03/27/20 25 03/27/2025 urina lysis panel , auto Unknown Analyte Negati ve Not Available [facility] With [address] [place], [address], 03/27/2025 14:04:44 03/27/20 25 03/27/2025 urina lysis panel , auto Unknown Analyte Normal Not Available [facility] With [address] [place], [place], [address], 03/27/2025 14:04:44 03/27/20 25 03/27/2025 urina lysis panel , auto Unknown Analyte Normal Not Available [facility] Extended Services With [address] [place], [address], 03/27/2025 14:04:44 03/27/20 25 03/27/2025 urina lysis panel , auto Unknown Analyte Negati ve Not Available [facility] With [address] [place], [address], 03/27/2025 14:04:44 03/27/20 25 03/27/2025 urina lysis panel , auto Unknown Analyte Negati ve Not Available [facility] With [address] [place], [address], 03/27/2025 14:04:44 03/27/20 25 03/27/2025 urina lysis panel , auto Unknown Analyte Negati ve Not Available [facility] Services With [address] [place], [address], 03/27/2025 14:04:44 03/27/20 25 03/27/2025 urina lysis panel , auto Unknown Analyte Negati ve Not Available [facility] Services With [address] [place], [address], 03/27/2025 14:04:44 05/07/20 25 05/05/2025 XR, abdom en, 1 view No observ ation record ed. [email or web address] [facility] Breast Imaging [address], [place], [address], 05/08/2025 15:48:32 Result Notes None recorded. Problems Name Problem SNOMED Code Status Onset Date Resolution Date Notes Provider Name and Address Organization Details Recorded Time Urolithiasis 65594475 Active 018 Caloselenyamileth Moore [facility] 8 13:42:46 Problem Notes None recorded. Procedures Surgical History Date Name Laterality Status Provider Name and Address Organization Details Recorded Time 05/05/20 25 Post Void Residual; Ultrasound completed [facility] 05/05/2025 16:47:03 01/22/20 25 Post Void Residual; Ultrasound completed [facility] 01/21/2025 10:54:51 08/20/20 21 Unlisted px femur[facility] 12:54:24 [facility] 03/16/2017 16:31:38 [facility]ney Stones [facility] 03/16/2017 16:31:46 Knee arthroscopy/surg gilbert completed [facility] 06/11/2020 14:13:46 Imaging Results None [...] and Address Organization Details Last Updated DateTime 03/27/2025 175.26 cm 31.9 kg/m2 83965.95 g Rica Huynh [facility] 03/27/2025 14:04:34 Social History Question Answer Notes LastModified by Organizat ion Details LastModified Time Tobacco Smoking Status Never Smoker Dane Moore [facility] 03/16/2017 16:31:28 What Was The Date Of Your Most Recent Tobacco Screening? 05/05/2025 [email or web address] Information not available 05/05/2025 Sex: Unknown Functional [...] Medical History Condition Response Kidney Stones Y Arthritis Y Diabetes Y Sleep Apnea Y Hypertension Y Immunizations Vaccine Type Date Status Note Provider Nam e and Address Organization Details Recorded Time Influenza, adjuvanted, trivalent, PF 7 completed Halie Skip [facility] 05/12/2025 16:16:53 Influenza, MDCK, quadrivalent, PF 8 completed Halie Skip [facility] 05/12/2025 16:16:53 zoster recombinant 5 completed Halie Skip [facility] 05/12/2025 16:16:53 Influenza, high-dose, quadrivalent, PF 0 completed Halie [facility] 05/12/2025 16:16:53 Influenza, high-dose, quadrivalent, PF 1 completed Halie Skip [facility] 05/12/2025 16:16:53 Influenza, high-dose, quadrivalent, PF 2 completed Halie Skip [facility] 05/12/2025 16:16:53 Influenza, high-dose, quadrivalent, PF 3 completed Halie Skip [facility] 05/12/2025 16:16:53 COVID-19, mRNA, LNP-S, PF, 100 mcg/0.5mL dose or 50 mcg/0.25mL dose 1 completed [facility] 05/12/2025 16:16:53 COVID-19, mRNA, LNP-S, PF, 100 mcg/0.5mL dose or 50 mcg/0.25mL dose 1 completed [facility] 05/12/2025 16:16:53 Pneumococcal conjugate PCV 13 8 completed [facility] 05/12/2025 16:16:53 Influenza, high-dose, trivalent, PF 4 completed [facility] 05/12/2025 16:16:53 Past Encounters Encounter ID Performer Location Encounter Start Date Encounter Closed Date Diagnosis/Indication Diagnosis SNOMED-CT Code Diagnosis ICD10 Code Diagnosis Note [id number] BAA EARL MD [facility] [address] [place] [address] 03/05/2025 14:37:20 03/05/2025 16:21:58 Kidney stone 44282018 N20.0 Urge incon tinence of urine 91026052 N39.41 He will try the Gemtesa samples and follow-up with me in 1 month [id number] CORINA WELLS MD [facility] [address] [place] [address],[place] [address] 03/27/2025 13:21:22 03/27/2025 14:19:49 Benign prostatic hyperplasia with outflow obstruction 943419822 N40.1 N13.8 - Continue increased tamsulosin therapy. Monitor voiding symptoms. Urinary incontinence 165 428682 R32 - Stop Gemtesa. Increase tamsulosin to two daily. Ultrasound planned for bladder evaluation . Assess for structural issues. Kidney stone 27718213 N2 0.0 - Follow-up post-ESWL. Evaluate interventi on outcome and check for recurring symptoms. Health Concerns Section Related Observation LastModified by Organization Detai ls LastModified Time None Recorded Concern Status LastModified by Organization Details LastModified Time None Recorded Payers Encounter Date Sequence Insurance Name Policy Number Policy Muhammad Covered Member ID Muhammad Member ID Guarantor Name 03/27/2025 1 [place]ARE[place] Addison Peguero [id number] Addison Peguero 03/27/2025 2 [employer] (MEDICARE SUPPLEMENT) Addison Peguero [id number] Addison Peguero Notes Date Note Type Note Provider Name and Address Organization Details Recorded Time 03/27/2025 text/html - The patient is a 74 year old male presenting with urinary incontinence. - Incontinence characterized by severe leakage, use of men's diapers, frequent nocturia. - Began post-stent placement, leakage worsened by soft seating. - No improvement with Gemtesa treatment. - Post-ESWL follow-up for renal stone - Received ESWL for lower pole renal stone, stent placed and removed. - Persistent incontinence post-procedure without burning or hematuria. - Continues tamsulosin therapy noted. CORINA WELLS MD [address] [place] [address], [address], [facility] - [facility] 04/06/2025 15:12:32
--- OUTSIDE RECORDS SUMMARY | 2025-05-16 16:48 | XMS_ITS | Clinical Summary ---
Author Organization [employer] Address [address] [facility] [place] [address] Care Team Providers Care Fabric And Accessories Estimator Name Role Phone Samantha Vallecillo BONI Primary Care Provider Allergies No known active allergies Medications aspirin 81 MG EC tablet daily. Active lisinopriL (ZESTRIL) 10 MG tablet daily. Active metFORMIN (GLUCOPHAGE-XR) 500 MG 24 hr tablet Two times a day Active allopurinoL (ZYLOPRIM) 300 MG tablet daily. Active glipiZIDE (GLUCOTROL XL) 10 MG 24 hr tablet Take 1 tablet (10 mg total) by mouth daily. 11/21/2024 Active famotidine (PEPCID) 20 MG tablet Take 1 tablet (20 mg total) by mouth 2 (two) times daily. Active atorvastatin (LIPITOR) 10 MG tablet Take 1 tablet (10 mg total) by mouth daily. 01/31/2025 Active oseltamivir (TAMIFLU) 75 MG capsule Take 1 capsule (75 mg total) by mouth daily. 01/20/2025 Active pioglitazone (ACTOS) 15 MG tablet Take 1 tablet (15 mg total) by mouth daily. 12/25/2024 Active tamsulosin (FLOMAX) 0.4 mg cap 24 hr capsule Take 1 capsule twice a day by oral route for 90 days. 01/28/2025 Active Active Problems Problem Noted Date Diagnosed Date GERD (gastroesophageal reflux disease) MEAGAN (obstructive sleep apnea) 02/13/2025 Diabetes Hypertension Kidney stones Encounters Date Type Department Care Team Description 05/05/2025 3:23 PM EDT - 05/05/2025 11:59 PM EDT Hospital Encounter [facility] Diagnostic Imaging - [place] [facility] [address] [place] [address] [address] [place] [address] Derek Madrigal MD Calculus of kidney Discharge Disposition: Home or Self Care 05/05/2025 Outside Orders [facility] Breast Imaging [address] [facility] [address] [place] [address] Derek Madrigal MD Calculus of kidney (Primary Dx) 02/13/2025 12:08 PM EDT Anesthesia Event [facility] Surgery Department [address] [place] [address] Shalini Valadez CRNA Ragland, Jon, MD 02/13/2025 11:55 AM EDT - 02/13/2025 1:05 PM EDT Surgery [facility] Surgery Department [address] [place] [address] Rakan Salamanca MD LEFT EXTRACORPOREAL SHOCKWAVE LITHOTRIPSY WITH STENT REMOVAL 02/13/2025 9:37 AM EDT - 02/13/2025 2:40 PM EDT Hospital Encounter [facility] Surgery Department [address] [place] [address] Rakan Salamanca MD Discharge Disposition: Home or Self Care 02/13/2025 Travel from Last 3 Months Social History Tobacco Use Types Packs/Day Years Used Date Smoking Tobacco: Never Assessed Sex and Gender Information Value Date Recorded Sex Assigned at Not on file Legal Sex Male 7:42 AM [employer] Gender Identity Not on file Sexual Orientation Not on file Last Filed Vital Signs Vital Sign Reading Time Taken Comments Blood Pressure 153/81 02/13/2025 1:56 PM EDT Pulse 60 02/13/2025 1:56 PM EDT Temperature 36.2 C (97.2 F) 02/13/2025 1:56 PM EDT Respiratory Rate 16 02/13/2025 1:56 PM EDT Oxygen Saturation 98% 02/13/2025 1:56 PM EDT Inhaled Oxygen Concentration - - Weight 93.4 kg (206 lb) 02/13/2025 10:58 AM EDT Height 175.3 cm (5' 9 ) 02/13/2025 10:58 AM EDT Body Mass Index 30.42 02/13/2025 10:58 AM EDT Plan of Treatment Health Maintenance Due Date Last Done Comments CT Colonography 1949 Colonoscopy 1949 Colorectal Cancer Screening 1949 Diabetic Kidney Health Evalu ation (KED) 1949 FOBT/FIT 1949 Fit-DNA (Cologuard) 1949 Sigmoidoscopy 1949 Diabetic Eye Exam 1959 Diabetic foot exam 1959 Depression Screening (12+) 1961 Tobacco Cessation Counseling and Screening (12+) 1961 Hepatitis C Screening 1967 DTAP/TDAP/TD VACCINES (1 - Tdap) 1968 Medicare Initial AWV [id number] 06/21/2015 Pneumococcal 50+ years (2 of 2 - PPSV23) 11/01/2018 09/06/2018 Respiratory Syncytial Virus (RSV) Adult or (1 - 1-dose 75+ series) 2024 COVID-19 VACCINE (3 - 2023-2 5 season) 2024 01/14/2021, 12/17/2020 Falls Risk Screening 11/20/2024 Hemoglobin A1C 02/13/2025 Shingles Vaccine (Zoster) (2 of 2) 04/23/20252024 Influenza Vaccine Completed 10/31/2024, , 09/08/2022, Additional history exists Procedures Procedure Name Priority Date/Time Associated Diagnosis Comments XR ABDOMEN/KUB 1 VW STAT 05/05/2025 3:28 PM EDT Calculus of kidney NOVA GLUCOSE POC Routine 02/13/2025 1:15 PM EDT ANESTHESIA INTUBATION Routine 02/13/2025 12:14 PM EDT CYSTOSCOPY, WITH URETERAL STENT REMOVAL 02/13/2025 12:04 PM EDT Calculus of kidney Case Notes ESWL CONFIRMATION #[id number] SPOKE TO JORDY SUMNER LITHOTRIPSY XTRCORP SHOCK WAVE 02/13/2025 12:04 PM EDT Calculus of kidney Case Notes ESWL CONFIRMATION #[id number] SPOKE TO JORDY XR ABDOMEN/KUB 1 VIEW PORTABLE Routine 02/13/2025 10:22 AM EDT NOVA GLUCOSE POC Routine 02/13/2025 9:54 AM EDT from Last 3 Months Results * X-ray abdomen KUB 1 view [...] IMG DIAGNOSTIC IMAGING ORDERAB LES Final Result * (ABNORMAL) Glucose, Nova Meter (02/13/2025 1:15 PM EDT) Only the most recent of2 resultswithin the time period is included. POC-GLUCOSE 118(H) 70 - 110 mg/dL 02/13/2025 1:17 PM EDT [facility] Comment:In the event of poor peripheral blood flow, venous or arterial blood should be used due to the potential of erroneous results. Wordpress Developer [id number] 02/13/2025 1:17 PM EDT [facility] Blood WHOLE BLOOD / Unknown 02/13/2025 1:15 PM EDT 02/13/2025 1:17 PM EDT Narrative [facility] - 02/13/2025 1:17 PM EDT Wordpress Developer ID is - [id number] us Rakan Salamanca MD POINT OF CARE TEST ORDERABLES Final Result [facility] [address] [phone] * AN SINGLE LUMEN INTUBATION (02/13/2025 12:14 PM EDT) Shalini Sherwood CRNA - 02/13/2025 12:14 PM EDT Shalini Valadez CRNA 02/13/2025 12:38 PM Intubation Authorized by: Shalini Valadez CRNA Performed by: Shalini Valadez CRNA Date/Time: 02/13/2025 12:14 PM Urgency: elective Indications and Patient Condition Indications for airway management: anesthesia and airway protection Spontaneous Ventilation: absent Sedation level: general anesthesia Preoxygenated: yes Patient position: sniffing no Mask difficulty assessment: 0 - not attempted no Final Airway Details Final airway type: endotracheal airway Endotracheal tube type: ETT Cuffed: yes Successful intubation technique: direct laryngoscopy Facilitating devices/methods: intubating stylet Endotracheal tube insertion site: oral Blade: Holly Blade size: #3 ETT size (mm): 7.0 Cormack-Lehane Classification: grade I - full view of glottis Placement verified by: chest auscultation and capnometry Cuff volume (mL): 8 Measured from: teeth ETT to teeth (cm): 23 Number of attempts at approach: 2 Ventilation between attempts: supraglottic airway Number of other approaches attempted: 1 Other Attempts Unsuccessful attempted airways: SGA us Shalini Valadez CRNA ANESTHESIA ORDERABLES Final Result * XR KUB PORTABLE (02/13/2025 10:22 AM EDT) Anatomical Region Laterality Modality Abdomen X-Ray 02/13/2025 10:5 2 AM EDT Impressions 02/13/2025 11:00 AM EDT Nonspecific but nonobstructive bowel gas pattern. Left ureteral stent with no stones identified along the course of the stent. Images reviewed, interpreted, and dictated by Dr. Mina Zurtia. Transcribed by Natasha Craig PA-C. Narrative 02/13/2025 11:00 AM EDT KUB HISTORY: Left nephrolithiasis. COMPARISON: January 28, 2025. FINDINGS: A single view of the abdomen with a coned-down of the pelvis demonstrates a nonspecific but nonobstructive bowel gas pattern. A left ureteral stent is noted. There are no stones noted along the course of the stent. There are degenerative changes of the lumbar spine. Procedure Note Mina Zurita MD - 02/13/2025 KUB HISTORY: Left nephrolithiasis. COMPARISON: January 28, 2025. FINDINGS: A single view of the abdomen with a coned-down of the pelvis demonstrates a nonspecific but nonobstructive bowel gas pattern. A left ureteral stent is noted. There are no stones noted along the course of the stent. There are degenerative changes of the lumbar spine. IMPRESSION: Nonspecific but nonobstructive bowel gas pattern. Left ureteral stent with no stones identified along the course of the stent. Images reviewed, interpreted, and dictated by Dr. Mina Zurita. Transcribed by Natasha Craig PA-C. Rakan Salamanca MD IMG DIAGNOSTIC IMAGING ORDERAB LES Final Result from Last 3 Months Insurance MEDICARE PART A B [employer] Advance Directives For more information, please contact: [phone] * Full Code (Latest Code Status on File) Date Activated Date Inactivated Comments 02/13/2025 8:51 AM 02/13/2025 3:42 PM Care Teams Fabric And Accessories Estimator Relationship Specialty Start Date End Date Samantha Vallecillo NP [address] [place] [phone] PCP - General Nurse Practitioner 02/13/25
--- OUTSIDE RECORDS SUMMARY | 2025-05-16 16:48 | XMS_ITS | Continuity of Care Document ---
Author Organization [place] - [place]., [facility] Address [address] [place] [address] Assessment Encounter Date Assessment Date Assessment LastModified by Organization Details LastModified Time 03/21/2025 03/21/2025 RF glipizide per plan below. Patient pending nephrology appt for kidneys. We were able to get urology r/s for next week 03/27/2025 at 1:45 in [place], he was provided appt info. He was advised to seek care with any severe or worsening pain, fever or chills. He was unable to void today, he will try to return urine sample for UA/culture today or tomorrow. Follow up as planned, sooner if needed Not available 03/21/2025 10:48:17 Plan of Treatment Reminders Order Date Submit Date Provider Last Modified By Organization Details Last Modified Time Details Appointments FOLLOW UP 30 2024 01:00P M Avel, Samantha Not available Not available Not available Lab urinalysi s, dipstick 2024 025 [facility], [address] [place] [address], [address], 03/22/2025 08:04:10 Referral None recorded. Procedures None recorded. Surgeries None recorded. Imaging None recorded. Medication Orders glipizide ER 10 mg tablet, extended release 24 hr 2024 025 [facility], [address] [place], [address], 04/18/2025 10:09:07 Patient TargetsNo targets recorded. Patient Instructions Encounter Date Encounter Id Patient Instructions Last Modified By Organization Details Last Modified Time 03/21/2025 [id number] learning about type 2 diabetes Not available 03/21/2025 10:02:30 type 2 diabetes: care instructions Not available 03/21/2025 10:02:30 high cholesterol : care instructions Not available 03/21/2025 10:02:30 Reason for Referral None Reported. Results Created Date Observation Date Name Description Value Unit Range Abnormal Flag Note LastModifiedBy Organization Detail LastModifiedTime 03/21/2003/21/2025 urina lysis , dipst ick Leukocytes Negati ve Not Available [address], [address], 03/21/2025 17:43:51 03/21/20 25 03/21/2025 urina lysis , dipst ick Nitrite negati ve Not Available [address], [address], 03/21/2025 17:43:51 03/21/20 25 03/21/2025 urina lysis , dipst ick Urobilinogen .2 Not Available [address], [address], 03/21/2025 17:43:51 03/21/20 25 03/21/2025 urina lysis , dipst ick Protein 30 Not Available [address], [address], 03/21/2025 17:43:51 03/21/20 25 03/21/2025 urina lysis , dipst ick pH 5.5 Not Available [address], [address], 03/21/2025 17:43:51 03/21/20 25 03/21/2025 urina lysis , dipst ick Blood Hemoly zed: Trace Not Available [address], [address], 03/21/2025 17:43:51 03/21/20 25 03/21/2025 urina lysis , dipst ick Specific Cal[place] 1.025 Not Available [address], [address], 03/21/2025 17:43:51 03/21/20 25 03/21/2025 urina lysis , dipst ick Ketone Negati ve Not Available [address], [address], 03/21/2025 17:43:51 03/21/20 25 03/21/2025 urina lysis , dipst ick Bilirubin Negati ve Not Available [address], [address], 03/21/2025 17:43:51 03/21/20 25 03/21/2025 urina lysis , dipst ick Glucose Negati ve Not Available [address], [address], 03/21/2025 17:43:51 02/20/20 25 02/19/2025 XR, shoul crissy, 2 or more view No observ ation record ed. [address] (Radiology) [address] [place], [address], 02/21/2025 10:25:13 02/20/20 25 02/19/2025 XR, shoul crissy, 2 or more view No observ ation record ed. [address] (Radiology) [address] [place], [address], 02/21/2025 10:24:46 0605/05/2025 XR, abdom en No observ ation record ed. [facility] [address], [place], [address], 05/07/2025 09:42:29 Result Notes None recorded. Problems Name Problem SNOMED Code Status Onset Date Resolution Date Notes Provider Name and Address Organization Details Recorded Time Infection of toe 984621466 Completed 202310/31/2024 Samantha Vallecillo NP [address] [place] [address], [address], [employer] 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 4 12:09:13 Type 2 diabetes mellitus without complicatio n 118100717 Completed 202303/21/2025 Samantha Vallecillo NP [address] [place] [address], [address], [place] [employer] 5 10:01:28 Gastroesoph ageal reflux disease without esophagitis 963772830 Active 2023 Samantha Vallecillo NP [address] [place] [address], [address], [employer] 4 12:09:07 Chronic gouty arthritis 53804811 Active 2023 Samantha Vallecillo NP [address] [place] [address], [address] 8, [employer] 4 12:09:05 Body mass index 30+ - obesity 686202290 Active 2023 Samantha Vallecillo NP [address] [place] [address], [address] 8, [employer] 4 12:09:30 Hypertensiv e disorder 94747689 Active 2023 Samantha Vallecillo NP [address] [place] [address], [address] 8, [employer] 4 12:09:25 Hyperlipide miguel 01133047 Active 2024 Samantha Vallecillo NP [address] [place] [address], [address] 8, [employer] 5 09:07:34 Adjustment disorder with depressed mood 52050544 Active 2024 Samantha Vallecillo NP [address] [place] [address], [address] 8, [employer] 5 09:07:38 Chronic kidney disease 189243379 Active 2024 Samantha Vallecillo NP [address] [place] [address], [address] 8, [employer] 5 09:59:50 Type 2 diabetes mellitus 99528568 Active 2024 Samantha Vallecillo NP [address] [place] [address], [address] 8, [employer] 5 10:01:21 Dizziness 021529020 Active 2024 Samantha Vallecillo NP [address] [place] [address], [address] 8, [employer] 5 10:13:57 Anemia 217383970 Active 2024 Samantha Vallecillo NP [address] [place] [address], [address] 8, [employer] 5 13:03:12 Kidney stone 79548255 Active 2024 Samantha Vallecillo NP [address] [place] [address], [address] 8, [employer] 5 16:08:49 Chronic low back pain 461403813 Active 2024 Samantha Vallecillo NP [address] [place] [address], [address] 8, [employer] 5 13:48:49 Urinary incontinenc e 740765670 Active 2024 Samantha Vallecillo BONI [address] [facility], [place], [address], [employer] 14:07:05 Problem Notes None recorded. Procedures Surgical History Date Name Laterality Status Provider Name and Address Organization Details Recorded Time complete repair of rotator cuff completed [employer] 07/03/2024 12:06:07 procedure on nerve completed [employer]. 07/03/2024 12:06:55 total knee replacement completed [employer]. 07/03/2024 12:07:10 Appendectomy completed [employer]. 07/03/2024 12:07:17 total replacement of hip completed [employer], [employer] 07/03/2024 12:07:28 Imaging Results None recorded. Procedure [...] Updated DateTime 5 175.26 cm 31.2 kg/m2 19666.0 9 g 92 /min 98 % 98 % 139 mm[Hg] 76 mm[Hg] Carolyn Ceja [employer] 09:58:30 Social History Question Answer Notes LastModified by Organizat ion Details LastModified Time Tobacco Smoking Status Never Smoker Griselda yeung, [email or web address] 07/03/2024 12:05:06 Is Your Home Air Conditioned? [...] Of Your Most Recent Tobacco Screening? 05/16/2025 [email or web address] Information not available 05/16/2025 What Is Your Relationship Status? Information not available 07/03/2024 Do You Use Your Seat Belt Or Car Seat Routinely? Yes Information not available 07/03/2024 Are You Sexually Active? No [email or web address] Information not available 10/31/2024 Do You Have Smoke And Carbon Monoxide Detectors In Your Home? Yes Information not available 07/03/2024 Are You Passively Exposed To Smoke? No Information no t available 07/03/2024 Are There Any Smokers In Your House? No Information not available 07/03/2024 Do You Participate In Social Media? Yes [email or web address] Information not available 10/31/2024 Has Tobacco Cessation Counseling Been Provided? No Information not available 07/03/2024 Have You Recently Traveled Abroad? No Information not available 07/03/2024 Do You Have Difficulty Walking Or Climbing Stairs? Yes Information not available 07/03/2024 Are You Currently In School? No [email or web address] Information not available 10/31/2024 Do You Have Any Dietary Restrictions? Yes [email or web address] Information not available 10/31/2024 Sex: Male Functional Status Question Answer Note LastModified by Organizat ion Details LastModified Time Do you use any illicit or recreational drugs? No Information not available 07/03/2024 Do you or have you ever used any other forms of tobacco or nicotine? No Information not available 10/31/2024 What is your level of alcohol consumption? None Information not available 07/03/2024 Are you currently employed? No Information not available 07/03/2024 Do you have transportation difficulties? No [email or web address] Information not available 10/31/2024 Are you able [...] anxious, or unable to sleep at night)? [id number] [email or web address] Information not available 10/31/2024 Do you have [...] PF 4 completed Samantha Vallecillo NP [address] [place], [address], [employer] 11/02/2024 09:27:35 zoster recombinant 5 completed Samantha Vallecillo NP [address] [place], [address], [employer] 03/05/2025 13:28:44 Influenza, adjuvanted, trivalent, PF 7 completed Griselda yeung, [employer] 07/03/2024 11:45:29 Influenza, MDCK, quadrivalent, PF 8 completed Griselda Powell null, [employer] 07/03/2024 11:45:29 Influenza, high-dose, quadrivalent, PF 0 completed Griselda Gonzalezy null, [employer] 07/03/2024 11:45:30 Influenza, high-dose, quadrivalent, PF 1 completed Griselda Montaguelly null, [employer] 07/03/2024 11:45:30 Influenza, high-dose, quadrivalent, PF 2 completed Griselda Gonzalezy null, [employer] 07/03/2024 11:45:30 Influenza, high-dose, quadrivalent, PF 3 completed Grisleda Powell null, [employer] 07/03/2024 11:45:30 COVID-19, mRNA, LNP-S, PF, 100 mcg/0.5mL dose or 50 mcg/0.25mL dose 1 completed Griselda Wap[place] null, [employer] 07/03/2024 11:45:30 COVID-19, mRNA, LNP-S, PF, 100 mcg/0.5mL dose or 50 mcg/0.25mL dose 1 completed Griselda Sherry null, [employer] 07/03/2024 11:45:30 Pneumococcal conjugate PCV 13 8 completed Griselda [place] null, [employer] 07/03/2024 11:45:30 Past Encounters Encounter ID Performer Location Encounter Start Date Encounter Closed Date Diagnosis/Indication Diagnosis SNOMED-CT Code Diagnosis ICD10 Code Diagnosis Note [id number] Samantha Vallecillo NP [address] [address] 02/26/2025 08:39:43 02/26/2025 09:34:34 Hypertensive disorder 93381392 I10 Type 2 ekaterina betes mellitus without complication 698672337 E11.9 Hyperlipidemia 75557281 E78.5 Hepatitis C screening 41 9497780 Z11.59 Screening for malignant neoplasm of prostate 244405409 Z12.5 Active or passive immunization 716325775 Z23 [id number] Samantha Vallecillo NP [address] [address] 03/21/2025 09:21:29 03/21/2025 10:43:45 Type 2 diabetes mellitus 29113991 E11.22 N18.32 Hyperlipidemia 71142471 E78.5 Hypertensive disorder 38 014131 I10 Health Concerns Section Related Observation LastModified by Organization Detai ls LastModified Time None Recorded Concern Status LastModified by Organization Details LastModified Time None Recorded Payers Encounter Date Sequence Insurance Name Policy Number Policy Muhammad Covered Member ID Muhammad Member ID Guarantor Name 03/21/2025 1 [place] Addison Peguero [id number] Addison Peguero 03/21/2025 2 [employer] (MEDICARE SUPPLEMENT) Addison Peguero [id number] Addison Peguero Notes Date Note Type Note Provider Name and Address Organization Details Recorded Time 03/21/2025 text/html Patient presents for evaluation of [...] not had a fever or chills. Carolyn yeung [place] - [employer] 03/22/2025 12:05:49
--- OUTSIDE RECORDS SUMMARY | 2025-05-16 16:48 | XMS_ITS | Data Portability ---
Author Organization MEHUL NORY Curran SHANKS CLOSED Address [address] [place] [address] Care Team Providers Care Poultry Processing Supervisor Name Role Phone MAKEDA ROBERTSE Primary Care Provider [phone] CANELO LEWIS Primary Care Provider [phone] Assessment Encounter Date Assessment Date Assessment LastModified by Organization Details LastModified Time 01/28/2025 01/28/2025 We discussed medical management of kidney stone with KUB. We discussed kidney stone preventions such as adequate hydration, avoiding sodium, avoiding oxalate rich foods, and adding freshly squeeze lemonade citric due to its acid. Patient wishes to have stone removed, we will schedule procedure. [email or web address] Not available 01/28/2025 11:38:39 01/31/2025 01/31/2025 PREOPERATIVE DIAGNOSIS: Left renal calculus. POSTOPERATIVE DIAGNOSIS: Left renal calculus. PROCEDURE: Cystoscopy, left retrograde pyelogram, and left ureteral stent placement. ANESTHESIA: General. DRAINS: 4.8 x 28 left ureteral stent. SURGEON: Rakan Earl MD BRIEF HISTORY: Patient with a known stone on the left side, has been having left-sided flank pain. He was scheduled for ureteroscopic intervention. Review of CT scan from several months ago showed a 3 to 4 mm stone in his mid-pole left kidney. For the last 2 weeks, he has had renal colic symptoms and back pain. OPERATIVE NOTE: After satisfactory anesthesia, he was carefully placed in lithotomy position. Genitalia was prepped and draped in normal fashion. A #22-Pu[place]ican cystoscopy sheath was introduced. The urethra was unremarkable. Prostatic urethra was moderately obstructing. Upon entering the bladder, the bladder was inspected entirely. There was no evidence of stone present. The left ureteral orifice was unremarkable. Retrograde pyelogram was performed. The course and contour of the ureter was completely unremarkable and emptied promptly. There were no filling defects. I decided not to proceed with ureteroscopy due to the small size of the stone as well as no level of obstruction. Considering his renal colic, I did place a stent. There was a nice coil in the kidney and a coil in the bladder. We will make arrangements for a left-sided shockwave lithotripsy and stent removal in the near future. [email or web address] Not available 02/06/2025 13:05:34 03/27/2025 03/27/2025 - 74 year old male with history of benign prostatic hyperplasia presenting with urinary incontinence. - Incontinence potentially related to stent intervention. - Evaluate for bladder outlet obstruction and capacity issues. [email or web address] Not available 03/27/2025 14:15:08 05/05/2025 05/05/2025 - 74-year-old male with benign prostatic hyperplasia, nocturia, and urinary incontinence. - Post-void residual urine volume of 66 mL suggests mild incomplete bladder emptying. - History of urolithiasis treated with ESWL, on tamsulosin and solifenacin, with dizziness as a side effect. [email or web address] Not available 05/06/2025 21:22:37 Plan of Treatment Reminders Order Date Submit Date Provider Last Modified By Organization Details Last Modified Time Details Appointments RECHECK 2024 01:30P Ken WELLS MD Not available Not available Not available Lab urinalysi s panel, auto 2024 025 [address] [facility], [address], [address], [place], [address], 05/05/2025 16:44:04 urinalysi s panel, auto 2024 025 [email or web address] 4 [facility], [address] [place] [address] [address], [place], [address], 03/27/2025 14:13:13 urinalysi s panel, auto 2024 025 [email or web address] [facility], [address], [address], [place], [address], 03/06/2025 10:37:09 urinalysi s panel, auto 2024 025 [email or web address] 4 [facility], [address], [address], [place], [address], 02/09/2025 13:44:59 Referral None recorded. Procedures None recorded. Surgeries cystoscop y, with ureterosc opy, with lithotrip sy, with insertion of ureteral stent (SURG) 2024 025 [email or web address], [address], [address], [place], [address], 02/20/2025 16:26:09 Imaging None recorded. Medication Orders fesoterod ine ER 8 mg tablet,ex tended release 24 hr 2024 025 [facility], [facility] [place], [address], 05/05/2025 16:44:27 tamsulosi n 0.4 mg capsule 2024 025 [facility], [address] [place], [address], 03/27/2025 14:14:26 solifenac in 10 mg tablet 2024 025 [facility], [address] [place], [address], 05/05/2025 16:44:25 tamsulosi n 0.4 mg capsule 2024 025 [email or web address] 4 [facility], [address] [place], [address], 01/29/2025 13:17:40 Patient TargetsNo targets recorded. Patient Instructions Encounter Date Encounter Id Patient Instructions Last Modified By Organization Details Last Modified Time 01/28/2025 [id number] - Take tamsulosi n twice daily as prescribed. - Monitor symptoms, especially urinary changes. - Use pain medication as needed. - Follow up in one week or sooner if symptoms worsen. - Contact office if experiencing severe pain or new symptoms. [email or web address] Not available 01/28/2025 10:13:19 03/27/2025 [id number] - Stop taking Gemtesa. - Increase tamsulosin to two pills daily. - Come back for an ultrasound to check your bladder and let's see how you're doing. - Note if sitting on hard surfaces helps, and let us know about any changes. - Keep track of how often you leak or need to use the bathroom at night. [email or web address] Not available 03/27/2025 14:15:11 05/05/2025 [id number] - Continue takin g tamsulosin as prescribed. - Start new medication, fesoterodine, as directed. - Drink plenty of fluids and reduce salt intake to help prevent kidney stones. [email or web address] Not available 05/05/2025 16:47:13 Reason for Referral None Reported. Results Created Date Observation Date Name Description Value Unit Range Abnormal Flag Note LastModifiedBy Organization Detail LastModifiedTime 01/29/2001/28/2025 urina lysis panel , auto Unknown Analyte Clean Catch Not Available [facility] With [address], [place], [address], 01/28/2025 14:01:50 01/29/20 25 01/28/2025 urina lysis panel , auto Unknown Analyte Yellow Not Available [facility] With [address], [place], [address], 01/28/2025 14:01:50 01/29/20 25 01/28/2025 urina lysis panel , auto Unknown Analyte Clear Not Available [facility] [address], [place], [address], 01/28/2025 14:01:50 01/29/20 25 01/28/2025 urina lysis panel , auto Unknown Analyte 1.015 Not Available [facility] [address], [place], [address], 01/28/2025 14:01:50 01/29/2001/28/2025 urina lysis panel , auto Unknown Analyte 1.003 - 1.030 Not Available [facility] [address], [place], [address], 01/28/2025 14:01:50 01/29/20 25 01/28/2025 urina lysis panel , auto Unknown Analyte 5.0 Not Available [facility] [address], [place], [address], 01/28/2025 14:01:50 01/29/20 25 01/28/2025 urina lysis panel , auto Unknown Analyte 5.0 - 8.0 Not Available [facility] [address], [place], [address], 01/28/2025 14:01:50 01/29/20 25 01/28/2025 urina lysis panel , auto Unknown Analyte Negati ve Not Available [facility] [address], [place], [address], 01/28/2025 14:01:50 01/29/20 25 01/28/2025 urina lysis panel , auto Unknown Analyte Negati ve Not Available [facility] [address], [place], [address], 01/28/2025 14:01:50 01/29/20 25 01/28/2025 urina lysis panel , auto Unknown Analyte Negati ve Not Available [facility] [address], [place], [address], 01/28/2025 14:01:50 01/29/20 25 01/28/2025 urina lysis panel , auto Unknown Analyte Negati ve Not Available [facility] [address], [place], [address], 01/28/2025 14:01:50 01/29/20 25 01/28/2025 urina lysis panel , auto Unknown Analyte Negati ve Not Available [facility] [address], [place], [address], 01/28/2025 14:01:50 01/29/20 25 01/28/2025 urina lysis panel , auto Unknown Analyte Negati ve Not Available [facility] [address], [place], [address], 01/28/2025 14:01:50 01/29/20 25 01/28/2025 urina lysis panel , auto Unknown Analyte Normal Not Available [facility] [address], [place], [address], 01/28/2025 14:01:50 01/29/20 25 01/28/2025 urina lysis panel , auto Unknown Analyte Normal Not Available [facility] [address], [place], [address], 01/28/2025 14:01:50 01/29/20 25 01/28/2025 urina lysis panel , auto Unknown Analyte Negati ve Not Available [facility] [address], [place], [address], 01/28/2025 14:01:50 01/29/20 25 01/28/2025 urina lysis panel , auto Unknown Analyte Negati ve Not Available [facility] [address], [place], [address], 01/28/2025 14:01:50 01/29/20 25 01/28/2025 urina lysis panel , auto Unknown Analyte Normal Not Available [facility] [address], [place], [address], 01/28/2025 14:01:50 01/29/20 25 01/28/2025 urina lysis panel , auto Unknown Analyte Normal Not Available [facility] [address], [place], [address], 01/28/2025 14:01:50 01/29/20 25 01/28/2025 urina lysis panel , auto Unknown Analyte Negati ve Not Available [facility] [address], [place], [address], 01/28/2025 14:01:50 01/29/20 25 01/28/2025 urina lysis panel , auto Unknown Analyte Negati ve Not Available [facility] [address], [place], [address], 01/28/2025 14:01:50 01/29/20 25 01/28/2025 urina lysis panel , auto Unknown Analyte Negati ve Not Available [facility] [address] [facility] [address], [place], [address], 01/28/2025 14:01:50 01/29/20 25 01/28/2025 urina lysis panel , auto Unknown Analyte Negati ve Not Available [facility] [address] [facility] [address], [place], [address], 01/28/2025 14:01:50 02/01/20 25 01/31/2025 urina lysis panel , auto Unknown Analyte Clean Catch Not Available [facility] Surgery Schedule [address] [place], [address], 01/31/2025 13:46:54 02/01/20 25 01/31/2025 urina lysis panel , auto Unknown Analyte Yellow Not Available [facility] Surgery Schedule [address] [place], [address], 01/31/2025 13:46:54 02/01/20 25 01/31/2025 urina lysis panel , auto Unknown Analyte Clear Not Available [facility] Surgery Schedule [address] [place], [address], 01/31/2025 13:46:54 02/01/20 25 01/31/2025 urina lysis panel , auto Unknown Analyte 1.015 Not Available [facility] Surgery Schedule [address] [place], [address], 01/31/2025 13:46:54 02/01/20 25 01/31/2025 urina lysis panel , auto Unknown Analyte 1.003 - 1.030 Not Available [facility] Surgery Schedule [address] [place], [address], 01/31/2025 13:46:54 02/01/20 25 01/31/2025 urina lysis panel , auto Unknown Analyte 5.0 Not Available [facility] Surgery Schedule [address] [place], [address], 01/31/2025 13:46:54 02/01/20 25 01/31/2025 urina lysis panel , auto Unknown Analyte 5.0 - 8.0 Not Available [facility] Surgery Schedule [address] [place], [address], 01/31/2025 13:46:54 02/01/20 25 01/31/2025 urina lysis panel , auto Unknown Analyte Negati ve Not Available [facility] Surgery Schedule [address] [place], [address], 01/31/2025 13:46:54 02/01/20 25 01/31/2025 urina lysis panel , auto Unknown Analyte Negati ve Not Available [facility] Surgery Schedule [address] [place], [address], 01/31/2025 13:46:54 02/01/20 25 01/31/2025 urina lysis panel , auto Unknown Analyte Negati ve Not Available [facility] Surgery Schedule [address] [place], [address], 01/31/2025 13:46:54 02/01/20 25 01/31/2025 urina lysis panel , auto Unknown Analyte Negati ve Not Available [facility] Surgery Schedule [address] [place], [address], 01/31/2025 13:46:54 02/01/20 25 01/31/2025 urina lysis panel , auto Unknown Analyte Trace Not Available [facility] Surgery Schedule [address] [place], [address], 01/31/2025 13:46:54 02/01/20 25 01/31/2025 urina lysis panel , auto Unknown Analyte Negati ve Not Available [facility] Surgery Schedule [facility] [place], [address], 01/31/2025 13:46:54 02/01/20 25 01/31/2025 urina lysis panel , auto Unknown Analyte Normal Not Available [facility] Surgery Schedule [address] [place], [address], 01/31/2025 13:46:54 02/01/20 25 01/31/2025 urina lysis panel , auto Unknown Analyte Normal Not Available [facility] Surgery Schedule [address] [place] [address], [address], 01/31/2025 13:46:54 02/01/20 25 01/31/2025 urina lysis panel , auto Unknown Analyte Negati ve Not Available [facility] Surgery Schedule [address] [place] [address], [address], 01/31/2025 13:46:54 02/01/20 25 01/31/2025 urina lysis panel , auto Unknown Analyte Negati ve Not Available [facility] Surgery Schedule [address] [place] [address], [address], 01/31/2025 13:46:54 02/01/20 25 01/31/2025 urina lysis panel , auto Unknown Analyte Normal Not Available [facility] Surgery Schedule [address] [place] [address], [address], 01/31/2025 13:46:54 02/01/20 25 01/31/2025 urina lysis panel , auto Unknown Analyte Normal Not Available [facility] Surgery Schedule [address] [place] [address], [address], 01/31/2025 13:46:54 02/01/20 25 01/31/2025 urina lysis panel , auto Unknown Analyte Negati ve Not Available [facility] Surgery Schedule [address] [place] [address], [address], 01/31/2025 13:46:54 02/01/20 25 01/31/2025 urina lysis panel , auto Unknown Analyte Negati ve Not Available [facility] Surgery Schedule [address] [place], [address], 01/31/2025 13:46:54 02/01/20 25 01/31/2025 urina lysis panel , auto Unknown Analyte Negati ve Not Available [facility] Surgery Schedule [address] [place], [address], 01/31/2025 13:46:54 02/01/20 25 01/31/2025 urina lysis panel , auto Unknown Analyte Negati ve Not Available [facility] Surgery Schedule [address] [place], [address], 01/31/2025 13:46:54 03/05/20 25 03/05/2025 urina lysis panel , auto Unknown Analyte Clean Catch Not Available [facility] [address], [place], [address], 03/05/2025 15:29:24 03/05/20 25 03/05/2025 urina lysis panel , auto Unknown Analyte Yellow Not Available [facility] [address], [place], [address], 03/05/2025 15:29:24 03/05/20 25 03/05/2025 urina lysis panel , auto Unknown Analyte Clear Not Available [facility] [address], [place], [address], 03/05/2025 15:29:24 03/05/20 25 03/05/2025 urina lysis panel , auto Unknown Analyte 1.025 Not Available [facility] [address], [place], [address], 03/05/2025 15:29:24 03/05/20 25 03/05/2025 urina lysis panel , auto Unknown Analyte 1.003 - 1.030 Not Available [facility] [address], [place], [address], 03/05/2025 15:29:24 03/05/20 25 03/05/2025 urina lysis panel , auto Unknown Analyte 5.0 Not Available [facility] [address], [place], [address], 03/05/2025 15:29:24 03/05/20 25 03/05/2025 urina lysis panel , auto Unknown Analyte 5.0 - 8.0 Not Available [facility] [address], [place], [address], 03/05/2025 15:29:24 03/05/20 25 03/05/2025 urina lysis panel , auto Unknown Analyte Negati ve Not Available [facility] [address], [place], [address], 03/05/2025 15:29:24 03/05/20 25 03/05/2025 urina lysis panel , auto Unknown Analyte Negati ve Not Available [facility] [address], [place], [address], 03/05/2025 15:29:24 03/05/20 25 03/05/2025 urina lysis panel , auto Unknown Analyte Negati ve Not Available [facility] [address], [place], [address], 03/05/2025 15:29:24 03/05/20 25 03/05/2025 urina lysis panel , auto Unknown Analyte Negati ve Not Available [facility] [address], [place], [address], 03/05/2025 15:29:24 03/05/20 25 03/05/2025 urina lysis panel , auto Unknown Analyte Trace Not Available [facility] [address], [place], [address], 03/05/2025 15:29:24 03/05/20 25 03/05/2025 urina lysis panel , auto Unknown Analyte Negati ve Not Available [facility] [address], [place], [address], 03/05/2025 15:29:24 03/05/20 25 03/05/2025 urina lysis panel , auto Unknown Analyte Normal Not Available [facility] [address], [place], [address], 03/05/2025 15:29:24 03/05/20 25 03/05/2025 urina lysis panel , auto Unknown Analyte Normal Not Available [facility] [address], [place], [address], 03/05/2025 15:29:24 03/05/20 25 03/05/2025 urina lysis panel , auto Unknown Analyte Negati ve Not Available [facility] [address], [place], [address], 03/05/2025 15:29:24 03/05/20 25 03/05/2025 urina lysis panel , auto Unknown Analyte Negati ve Not Available [facility] [address], [place], [address], 03/05/2025 15:29:24 03/05/20 25 03/05/2025 urina lysis panel , auto Unknown Analyte Normal Not Available [facility] [address], [place], [address], 03/05/2025 15:29:24 03/05/20 25 03/05/2025 urina lysis panel , auto Unknown Analyte Normal Not Available [facility] [address], [place], [address], 03/05/2025 15:29:24 03/05/20 25 03/05/2025 urina lysis panel , auto Unknown Analyte 1 mg/dL Not Available [facility] [address], [place], [address], 03/05/2025 15:29:24 03/05/20 25 03/05/2025 urina lysis panel , auto Unknown Analyte Negati ve Not Available [facility] [address], [place], [address], 03/05/2025 15:29:24 03/05/20 25 03/05/2025 urina lysis panel , auto Unknown Analyte Negati ve Not Available [facility] [address], [place], [address], 03/05/2025 15:29:24 03/05/20 25 03/05/2025 urina lysis panel , auto Unknown Analyte Negati ve Not Available [facility] [address], [place], [address], 03/05/2025 15:29:24 03/27/20 25 03/27/2025 urina lysis panel , auto Unknown Analyte Clean Catch Not Available [facility] [address], [place], [address], 03/27/2025 14:04:44 03/27/20 25 03/27/2025 urina lysis panel , auto Unknown Analyte Yellow Not Available [facility] Extended [facility] With [address] [place], [address], 03/27/2025 14:04:44 03/27/20 25 03/27/2025 urina lysis panel , auto Unknown Analyte Clear Not Available [facility] With [address], [place], [place], [address], 03/27/2025 14:04:44 03/27/20 25 03/27/2025 urina lysis panel , auto Unknown Analyte 1.020 Not Available [facility] Extended [facility] With [address], [place], [address], 03/27/2025 14:04:44 03/27/20 25 03/27/2025 urina lysis panel , auto Unknown Analyte 1.003 - 1.030 Not Available [facility] [address] [place], [address], 03/27/2025 14:04:44 03/27/20 25 03/27/2025 urina lysis panel , auto Unknown Analyte 5.0 Not Available [facility] Extended [facility] With [address] [place], [place], [address], 03/27/2025 14:04:44 03/27/20 25 03/27/2025 urina lysis panel , auto Unknown Analyte 5.0 - 8.0 Not Available [facility] Extended Services With [address] [place], [address], 03/27/2025 14:04:44 03/27/20 25 03/27/2025 urina lysis panel , auto Unknown Analyte Negati ve Not Available [facility] With [address] [place], [address], 03/27/2025 14:04:44 03/27/20 25 03/27/2025 urina lysis panel , auto Unknown Analyte Negati ve Not Available [facility] Extended [facility] With [address] [place], [address], 03/27/2025 14:04:44 03/27/20 25 03/27/2025 urina lysis panel , auto Unknown Analyte Negati ve Not Available [facility] Extended [facility] With [address] [place], [address], 03/27/2025 14:04:44 03/27/20 25 03/27/2025 urina lysis panel , auto Unknown Analyte Negati ve Not Available [facility] Extended [facility] With [address] [place], [address], 03/27/2025 14:04:44 03/27/20 25 03/27/2025 urina lysis panel , auto Unknown Analyte Negati ve Not Available [facility] With [address] [place], [address], 03/27/2025 14:04:44 03/27/20 25 03/27/2025 urina lysis panel , auto Unknown Analyte Negati ve Not Available [facility] With [address] [place], [place], [address], 03/27/2025 14:04:44 03/27/20 25 03/27/2025 urina lysis panel , auto Unknown Analyte Normal Not Available [facility] Extended [facility] With [address] [place], [address], 03/27/2025 14:04:44 03/27/20 25 03/27/2025 urina lysis panel , auto Unknown Analyte Normal Not Available [facility] Extended [facility] With [address] [place], [address], 03/27/2025 14:04:44 03/27/20 25 03/27/2025 urina lysis panel , auto Unknown Analyte Negati ve Not Available [facility] With [address] [place], [place], [address], 03/27/2025 14:04:44 03/27/20 25 03/27/2025 urina lysis panel , auto Unknown Analyte Negati ve Not Available [facility] With [address] [place], [address], 03/27/2025 14:04:44 03/27/20 25 03/27/2025 urina lysis panel , auto Unknown Analyte Normal Not Available [facility] Extended Services With [address] [place], [address], 03/27/2025 14:04:44 03/27/20 25 03/27/2025 urina lysis panel , auto Unknown Analyte Normal Not Available [facility] With [address] [place], [place], [address], 03/27/2025 14:04:44 03/27/20 25 03/27/2025 urina lysis panel , auto Unknown Analyte Negati ve Not Available [facility] With [address] [place], [place], [address], 03/27/2025 14:04:44 03/27/20 25 03/27/2025 urina lysis panel , auto Unknown Analyte Negati ve Not Available [facility] Extended [facility] With [address] [place], [place], [address], 03/27/2025 14:04:44 03/27/20 25 03/27/2025 urina lysis panel , auto Unknown Analyte Negati ve Not Available [facility] Extended [facility] With [address] [place], [place], [address], 03/27/2025 14:04:44 03/27/20 25 03/27/2025 urina lysis panel , auto Unknown Analyte Negati ve Not Available [facility] Extended Services With [address] [place], [place], [address], 03/27/2025 14:04:44 05/05/20 25 05/05/2025 urina lysis panel , auto Unknown Analyte Clean Catch Not Available [facility] [address], [place], [address], 05/05/2025 16:22:07 05/05/20 25 05/05/2025 urina lysis panel , auto Unknown Analyte Yellow Not Available [facility] [address], [place], [address], 05/05/2025 16:22:07 05/05/20 25 05/05/2025 urina lysis panel , auto Unknown Analyte Clear Not Available [facility] [address], [place], [address], 05/05/2025 16:22:07 05/05/20 25 05/05/2025 urina lysis panel , auto Unknown Analyte 1.015 Not Available [facility] [address], [place], [address], 05/05/2025 16:22:07 05/05/20 25 05/05/2025 urina lysis panel , auto Unknown Analyte 1.003 - 1.030 Not Available [facility] [address], [place], [address], 05/05/2025 16:22:07 05/05/20 25 05/05/2025 urina lysis panel , auto Unknown Analyte 5.0 Not Available [facility] [address], [place], [address], 05/05/2025 16:22:07 05/05/20 25 05/05/2025 urina lysis panel , auto Unknown Analyte 5.0 - 8.0 Not Available [facility] [address], [place], [address], 05/05/2025 16:22:07 05/05/20 25 05/05/2025 urina lysis panel , auto Unknown Analyte Negati ve Not Available [facility] [address], [place], [address], 05/05/2025 16:22:07 05/05/20 25 05/05/2025 urina lysis panel , auto Unknown Analyte Negati ve Not Available [facility] [address], [place], [address], 05/05/2025 16:22:07 05/05/20 25 05/05/2025 urina lysis panel , auto Unknown Analyte Negati ve Not Available [facility] [address], [place], [address], 05/05/2025 16:22:07 05/05/20 25 05/05/2025 urina lysis panel , auto Unknown Analyte Negati ve Not Available [facility] [address], [place], [address], 05/05/2025 16:22:07 05/05/20 25 05/05/2025 urina lysis panel , auto Unknown Analyte Negati ve Not Available [facility] [address], [place], [address], 05/05/2025 16:22:07 05/05/20 25 05/05/2025 urina lysis panel , auto Unknown Analyte Negati ve Not Available [facility] [address], [place], [address], 05/05/2025 16:22:07 05/05/20 25 05/05/2025 urina lysis panel , auto Unknown Analyte Normal Not Available [facility] [address], [place], [address], 05/05/2025 16:22:07 05/05/20 25 05/05/2025 urina lysis panel , auto Unknown Analyte Normal Not Available [facility] [address], [place], [address], 05/05/2025 16:22:07 05/05/20 25 05/05/2025 urina lysis panel , auto Unknown Analyte Negati ve Not Available [facility] [address], [place], [address], 05/05/2025 16:22:07 05/05/20 25 05/05/2025 urina lysis panel , auto Unknown Analyte Negati ve Not Available [facility] [address], [place], [address], 05/05/2025 16:22:07 05/05/20 25 05/05/2025 urina lysis panel , auto Unknown Analyte Normal Not Available [facility] [address], [place], [address], 05/05/2025 16:22:07 05/05/20 25 05/05/2025 urina lysis panel , auto Unknown Analyte Normal Not Available [facility] [address], [place], [address], 05/05/2025 16:22:07 05/05/20 25 05/05/2025 urina lysis panel , auto Unknown Analyte Negati ve Not Available [facility] [address], [place], [address], 05/05/2025 16:22:07 05/05/20 25 05/05/2025 urina lysis panel , auto Unknown Analyte Negati ve Not Available [facility] [address], [place], [address], 05/05/2025 16:22:07 05/05/20 25 05/05/2025 urina lysis panel , auto Unknown Analyte Negati ve Not Available [facility] [address] [facility] [address], [place], [address], 05/05/2025 16:22:07 05/05/20 25 05/05/2025 urina lysis panel , auto Unknown Analyte Negati ve Not Available [facility] [address] [facility] [address], [place], [address], 05/05/2025 16:22:07 01/29/20 25 01/28/2025 XR, abdom en, 1 view No observ ation record ed. [email or web address] Not Available 01/19 10:51:08 05/07/20 25 05/05/2025 XR, abdom en, 1 view No observ ation record ed. [facility] [address] [facility] [address], [place], [address], 05/08/2025 15:48:32 Result Notes None recorded. Problems Name Problem SNOMED Code Status Onset Date Resolution Date Notes Provider Name and Address Organization Details Recorded Time Urolithiasis 86551802 Active 018 Dane Villaltat [facility] 8 13:42:46 Problem Notes None recorded. Procedures Surgical History Date Name Laterality Status Provider Name and Address Organization Details Recorded Time 05/05/20 25 Post Void Residual; Ultrasound completed Avelino Villarreal [facility] 05/05/2025 16:47:03 01/22/20 25 Post Void Residual; Ultrasound completed Avelino Villarreal [facility] 01/21/2025 10:54:51 08/20/20 21 [facility]16[facility] 12:54:24 [facility] 03/16/2017 16:31:38 Kidney Stones [facility] 03/16/2017 16:31:46 Knee arthroscopy/surg gilbert completed [facility] 06/11/2020 14:13:46 Imaging Results None recorded. Procedure [...] and Address Organization Details Last Updated DateTime 01/28/2025 175.26 cm 31.9 kg/m2 11601.95 g Olimpia Voss [facility] 01/28/2025 13:23:50 Date Recorded Body height Body mass index (BMI) Body weight Provider Name and Address Organization Details Last Updated DateTime 03/05/2025 175.26 cm 31.5 kg/m2 04347.17 g Avelino Villarreal [facility] 03/05/2025 15:33:56 Date Recorded Body height Body mass index (BMI) Body weight Provider Name and Address Organization Details Last Updated DateTime 03/27/2025 175.26 cm 31.9 kg/m2 74066.95 g Rica Huynh [facility] 03/27/2025 14:04:34 Date Recorded Body height Body mass index (BMI) Body weight Provider Name and Address Organization Details Last Updated DateTime 05/05/2025 175.26 cm 31.5 kg/m2 49722.17 g Avelino Villarreal [facility] 05/05/2025 16:46:20 Social History Question Answer Notes LastModified by Organizat ion Details LastModified Time Tobacco Smoking Status Never Smoker Dane Moore [facility] 03/16/2017 16:31:28 What Was The Date Of Your Most Recent Tobacco Screening? 05/05/2025 [email or web address] Information not available 05/05/2025 Sex: Unknown Functional [...] Influenza, adjuvanted, trivalent, PF 7 completed Halie Marcanoong [facility] 05/12/2025 16:16:53 Influenza, MDCK, quadrivalent, PF 8 completed Halie Marcanoong [facility] 05/12/2025 16:16:53 zoster recombinant 5 completed Halie Valdivia [facility] 05/12/2025 16:16:53 Influenza, high-dose, quadrivalent, PF 0 completed Halie Marcanoong [facility] 05/12/2025 16:16:53 Influenza, high-dose, quadrivalent, PF 1 completed Halie Marcanoong [facility] 05/12/2025 16:16:53 Influenza, high-dose, quadrivalent, PF 2 completed Halie Marcanoong [facility] 05/12/2025 16:16:53 Influenza, high-dose, quadrivalent, PF 3 completed Halie Marcanoong [facility] 05/12/2025 16:16:53 COVID-19, mRNA, LNP-S, PF, 100 mcg/0.5mL dose or 50 mcg/0.25mL dose 1 completed Hlaie Valdivia [facility] 05/12/2025 16:16:53 COVID-19, mRNA, LNP-S, PF, 100 mcg/0.5mL dose or 50 mcg/0.25mL dose 1 completed Halie Valdivia [facility] 05/12/2025 16:16:53 Pneumococcal conjugate PCV 13 8 completed Halie Valdivia [facility] 05/12/2025 16:16:53 Influenza, high-dose, trivalent, PF 4 completed Halie Valdivia [facility] 05/12/2025 16:16:53 Past Encounters Encounter ID Performer Location Encounter Start Date Encounter Closed Date Diagnosis/Indication Diagnosis SNOMED-CT Code Diagnosis ICD10 Code Diagnosis Note [id number] CORINA WELLS MD [address] ,[place] [address] 8 03/16/2017 15:51:14 03/20/2017 15:22:54 Ureteric stone 20611383 N20.1 [id number] CORINA WELLS MD SURGERY SCHEDULE [address] [place] [address] 03/21/2017 12:57:34 03/21/2017 13:02:03 Ureteric stone 46217845 N20.1 [id number] CORINA WELLS MD [address],[place] [address] 03/23/2017 14:23:50 03/24/2017 11:40:21 Ureteric stone 55275010 N20.1 [id number] CORINA WELLS MD [place] [address] [address],[place] [address] 8 06/22/2017 14:23:24 07/13/2017 13:02:35 Kidney stone 61259690 N20.0 Impotence of organic origin 848019697 N52.9 Benign pro static hyperplasia with outflow obstruction 322858855 N40.1 [id number] CORINA WELLS MD [facility] [address],[place] [address] 01/04/2018 14:14:24 01/11/2018 17:57:48 Kidney stone 41666549 N20.0 Benign pro static hyperplasia with outflow obstruction 198416516 N40.1 [id number] CORINA WELLS MD [facility] [address],[place] [address] 07/05/2018 13:12:15 07/11/2018 17:29:14 Kidney stone 05750547 N20.0 [id number] CORINA WELLS MD [facility] [address],[place] [address] 01/10/2019 12:52:02 01/21/2019 09:50:52 Benign prostatic hyperplasia with outflow obstruction 608373386 N40.1 Kidney stone 16883881 N2 0.0 [id number] CORINA WELLS MD [facility] [address] [place] [address] 8 03/28/2019 13:25:50 04/10/2019 10:43:45 Balanitis 45038073 N48.1 [id number] CORINA WELLS MD SURGERY SCHEDULE [address] [place] [address] 04/23/2019 12:57:41 04/23/2019 14:14:26 Postoperative pain 258881681 G89.18 [id number] CORINA WELLS MD [facility] [address],[place] [address] 05/30/2019 14:14:20 06/10/2019 08:25:49 Phimosis 459607681 N47.1 Kidney stone 07187139 N2 0.0 [id number] CORINA WELLS MD [facility] [address],[place] [address] 06/11/2020 13:50:34 06/15/2020 07:52:45 Kidney stone 45372893 N20.0 [id number] CORINA WELLS MD [facility] [address],[place] [address] 06/24/2021 14:57:33 06/25/2021 17:04:03 Primary erectile dysfunction 130411788 N52.9 Kidney stone 47096020 N2 0.0 [id number] CORINA WELLS MD [facility] [address],[place] [address] 8 07/29/2021 13:48:44 07/30/2021 14:41:48 Ureteric stone 54542358 N20.1 Kidney stone 32163200 N2 0.0 Renal colic 9331866 N23 [id number] CORINA WELLS MD SURGERY SCHEDULE [address] [place] [address] 08/03/2021 14:28:30 08/03/2021 14:30:19 Ureteric stone 75664923 N20.1 [id number] CORINA WELLS MD [facility] [address],[place] [address] 8 09/16/2021 12:52:49 09/16/2021 13:12:02 Kidney stone 94205295 N20.0 Benign pro static hyperplasia with outflow obstruction 468149083 N40.1 [id number] CORINA WELLS MD [facility] [address],[place] [address] 8 03/24/2022 13:03:19 04/02/2022 15:41:22 Benign prostatic hyperplasia with outflow obstruction 767030075 N40.1 Kidney stone 79548597 N2 0.0 [id number] CORINA WELLS MD [facility] [address],[place] [address] 8 09/22/2022 13:16:17 09/29/2022 07:44:01 Benign prostatic hyperplasia with outflow obstruction 823038952 N40.1 Kidney stone 41286343 N2 0.0 [id number] CORINA WELLS MD [facility] [address],[place] [address] 8 03/30/2023 13:46:10 03/31/2023 08:49:04 Benign prostatic hyperplasia with outflow obstruction 857940433 N40.1 Kidney stone 67004577 N2 0.0 Primary er ectile dysfunction 807348199 N52.9 [id number] CORINA WELLS MD [facility] [address],[place] [address] 8 04/11/2024 14:13:38 04/11/2024 15:10:13 Primary erectile dysfunction 416374420 N52.9 Benign pro static hyperplasia with outflow obstruction 364580305 N40.1 [id number] CORINA WELLS MD [facility] [address],[place] [address] 01/21/2025 10:29:11 01/21/2025 11:46:23 Benign prostatic hyperplasia with outflow obstruction 047412152 N40.1 Increase tamsulosin dose for symptom management . Continue monitoring for improvemen t. Consider surgery if symptoms persist. Kidney stone 63284879 N2 0.0 Plan for non-surgic al treatment to pass 3 mm stone. Pain management with analgesics . Surgery if stone does not pass naturally. [id number] CORINA WELLS MD [facility] [address],[place] [address] 01/28/2025 11:09:13 01/28/2025 16:23:38 Benign prostatic hyperplasia with outflow obstruction 618494907 N40.1 Kidney stone 49367553 N2 0.0 [id number] RAKAN EARL MD SURGERY SCHEDULE [address] [place] [address] 01/31/2025 13:00:00 01/31/2025 13:01:39 [id number] RAKAN EARL MD [facility] [address] [id number] 03/05/2025 14:37:20 03/05/2025 16:21:58 Kidney stone 50383473 N20.0 Urge incon tinence of urine 11000827 N39.41 He will try the Gemtesa samples and follow-up with me in 1 month [id number] CORINA WELLS MD [facility] [address] [facility],[place] [address] 03/27/2025 13:21:22 03/27/2025 14:19:49 Benign prostatic hyperplasia with outflow obstruction 091717021 N40.1 N13.8 - Continue increased tamsulosin therapy. Monitor voiding symptoms. Urinary incontinence 165 034547 R32 - Stop Gemtesa. Increase tamsulosin to two daily. Ultrasound planned for bladder evaluation . Assess for structural issues. Kidney stone 69692173 N2 0.0 - Follow-up post-ESWL. Evaluate interventi on outcome and check for recurring symptoms. [id number] CORINA WELLS MD [facility] [address] [place] [address] 05/05/2025 15:31:15 05/05/2025 16:49:56 Benign prostatic hyperplasia with outflow obstruction 081635287 N13.8 N40.1 - Continue tamsulosin 0.8 mg daily.- Discontinu e solifenaci n due to dizziness; initiate fesoterodi ne.- Consider cystscopy if symptoms persist. - Monitor urinary symptoms and adjust medication s as needed. Nocturia 073655871 R35.1 - Addressed with medication adjustment s and monitoring . Kidney stone 18214580 N2 0.0 - Follow-up post-ESWL. Evaluate interventi [...] Member ID Muhammad Member ID Guarantor Name 05/02/2025 1 [place] Addison Peguero [id number] Addison Peguero 07/31/2021 2 UNSPECIFIED REMIT PAYOR Addison Peguero 03/20/2017 1 *SELF PAY* Niyah Peguero 01/31/2025 2 [employer] [place] Addison Peguero [id number] Addison Peguero 01/31/2025 2 [employer] (MEDICARE SUPPLEMENT) Addison Peguero [id number] Addison Peguero 05/13/2025 2 [employer] (MEDICARE SUPPLEMENT) Addison Peguero [id number] Addison Peguero Notes Date Note Type Note Provider Name and Address Organization Details Recorded Time 01/28/2025 text/html 74 year old male presenting with BPH and history of kidney stone. He experiences urinary symptoms, managed with tamsulosin twice daily. CT confirmed a 3 mm kidney stone with left flank pain. Pain is treated with analgesics. Daytime frequency at least 3 times. Nocturia at least 3 times. No gross hematuria. No dysuria. - [facility]: 3 mm kidney stone CORINA WELLS MD [address] [place] [address], [phone], [facility] 02/09/2025 13:45:17 03/05/2025 text/html Patient is here in follow-up of recent left-sided shockwave lithotripsy with cystoscopy and removal of previous placed stent. His urine today is unremarkable. His complaint however some persistent urgency and frequency and very often urgency to incontinence. He often leaks large volumes acutely associated with urgency. I suggest we try him on Gemtesa and he is given 6 weeks samples. He will follow-up in 3 weeks and if not markedly improved we will consider repeating his CT scan has apparently had no issues with incontinence until the recent days. RAKAN EARL MD [address] [place] [address], [phone], [facility] 03/06/2025 10:38:36 03/27/2025 text/html - The patient is a [...] Continues tamsulosin therapy noted. CORINA WELLS MD [address] [place] [address], [phone], [facility] 04/06/2025 15:12:32 05/05/2025 text/html The patient is a 74-year-old [...] urine volume: 66 mL CORINA [place], [address], [facility] 05/06/2025 21:24:04
--- OUTSIDE RECORDS SUMMARY | 2025-05-16 16:48 | XMS_ITS | Encounter Summary ---
Author Organization [employer] Address [address] [place] [address] Care Team Providers Care Owner Professional Engineer Name Role Phone Samantha Vallecillo FORESTRY SUPPORT SPECIALIST Primary Care Provider [phone] Reason for Referral * Diagnostic X-Ray (Emergency) - Pending Review Specialty Diagnoses / Procedures Referred By Светлана barrios Referred To Contact Diagnoses Calculus of kidney Procedures X-ray abdomen KUB 1 view Derek Madrigal MD [address] [place] [address] [place] [address] Phone: tel: fax: Referral ID Status Reason Start Date Expiration Date V isits Requested Visits Authorized [id number] Pending Review 05/05/2025 05/05/2026 1 1 Encounter Details Date Type Department Care Team (Late st Contact Info) Description 05/05/2025 Outside Orders [facility] Breast Imaging [address] [place] [address] [place], [place] [id number] Derek Madrigal MD [address] [place] [address] [place] [address] Calculus of kidney (Primary Dx) Social History Tobacco Use Types Packs/Day Years Used Date Smoking Tobacco: Never Assessed Sex and Gender Information Value Date Recorded Sex Assigned at Not on file 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
--- OUTSIDE RECORDS SUMMARY | 2025-05-16 16:48 | XMS_ITS | Referral Summary ---
Author Organization [employer] Address [address] [place] [address] Care Team Providers Care Roller Printer Name Role Phone Samantha Vallecillo SUPERINTENDENT LAUNDRY Primary Care Provider [phone] Encounters Date Type Department Care Team Description 05/05/2025 3:23 PM EDT - 05/05/2025 11:59 PM EDT Hospital Encounter [facility] Diagnostic Imaging - [facility] [address] [place] [address] [address] [place] [address] Derek Madrigal MD Calculus of kidney Discharge Disposition: Home or Self Care 05/05/2025 Outside Orders [facility] Breast Imaging [address] [facility] [address] [place] [address] Derek Madrigal MD Calculus of kidney (Primary Dx) 02/13/2025 Travel 02/13/2025 11:55 AM EDT - 02/13/2025 1:05 PM EDT Surgery [facility] Surgery Department [address] [place] [address] Rakan Salamanca MD LEFT EXTRACORPOREAL SHOCKWAVE LITHOTRIPSY WITH STENT REMOVAL 02/13/2025 12:08 PM EDT Anesthesia Event [facility] Surgery Department [address] [place] [address] Shalini Valadez CRNA Ragland, Jon, MD 02/13/2025 9:37 AM EDT - 02/13/2025 2:40 PM EDT Hospital Encounter [facility] Surgery Department [address] [place] [address] Rakan Salamanca MD Discharge Disposition: Home or Self Care from Last 3 Months Allergies No known active allergies Medications aspirin [...] sleep apnea) 02/13/2025 Diabetes Hypertension Kidney stones Social History Tobacco Use Types Packs/Day Years Used Date Smoking Tobacco: Never Assessed Sex and Gender Information Value Date Recorded Sex Assigned at Not on file 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 Gender Identity Not on file Sexual Orientation [...] 02/13/2025 10:58 AM EDT Plan of Treatment Not on file Procedures Procedure Name Priority Date/Time Associated Diagnosis Comments XR ABDOMEN/KUB 1 VW STAT 05/05/2025 3:28 PM EDT Calculus of kidney NOVA GLUCOSE POC Routine 02/13/2025 1:15 PM EDT ANESTHESIA INTUBATION Routine 02/13/2025 12:14 PM EDT CYSTOSCOPY, WITH URETERAL STENT REMOVAL 02/13/2025 12:04 PM EDT Calculus of kidney Case Notes [facility] CONFIRMATION #[id number] SPOKE TO JORDY [place] LITHOTRIPSY XTRCORP SHOCK WAVE 02/13/2025 12:04 PM EDT Calculus of kidney Case Notes [facility] CONFIRMATION #[id number] SPOKE TO JORDY XR ABDOMEN/KUB 1 VIEW [...] - 110 mg/dL 02/13/2025 1:17 PM EDT [facility] Comment:In the event of poor peripheral blood flow, venous or arterial blood should be used due to the potential of erroneous results. Hospital Pharmacy Technician [id number] 02/13/2025 1:17 PM EDT [facility] Blood WHOLE BLOOD / Unknown 02/13/2025 1:15 PM EDT 02/13/2025 1:17 PM EDT Narrative [facility] - 02/13/2025 1:17 PM EDT Hospital Pharmacy Technician ID is - [id number] us Rakan Salamanca MD POINT OF CARE TEST ORDERABLES Final Result Performing Organization Address City/State/[facility] Co de Phone Number [facility] [address] [phone] * AN SINGLE LUMEN INTUBATION (02/13/2025 12:14 [...] 1 Other Attempts Unsuccessful attempted airways: [facility] ANESTHESIA ORDERABLES Final Result * XR KUB PORTABLE (02/13/2025 10:22 AM EDT) Anatomical Region Laterality Modality Abdomen X-Ray 02/13/2025 10:5 2 AM EDT Impressions 02/13/2025 11:00 AM EDT Nonspecific but nonobstructive bowel gas pattern. Left ureteral stent with no stones identified along the course of the stent. Images reviewed, interpreted, and dictated by Dr. Mina Zurita. Transcribed by Natasha Craig PA-C. Narrative 02/13/2025 [...] Mina Zurita. Transcribed by Natasha Craig PA-C. us Rakan Salamanca MD IMG DIAGNOSTIC IMAGING ORDERAB LES Final Result from Last 3 Months Insurance MEDICARE PART A B Advance Directives For more information, please contact: [phone] * Full Code (Latest Code Status on File) Date Activated Date Inactivated Comments 02/13/2025 8:51 AM 02/13/2025 3:42 PM Care Teams Roller Printer Relationship Specialty Start Date End Date Samantha Vallecillo NP [address] [place] [address] PCP - General Nurse Practitioner 02/13/25
--- NOTE | 2025-05-16 16:54 | XR_ITS ---
PROCEDURE INFORMATION: Exam: XR Chest Exam date and time: 05/16/2025 6:11 PM Age: 74 years old Clinical indication: Shortness of breath; Additional info: SOA TECHNIQUE: Imaging protocol: Radiologic exam of the chest. Views: 1 view. COMPARISON: CT ABDOMEN PELVIS WO CON 05/16/2025 6:04 PM FINDINGS: Lungs: Unremarkable. No consolidation. Pleural spaces: Unremarkable. No pleural effusion. No pneumothorax. Heart/Mediastinum: Unremarkable. No cardiomegaly. Bones/joints: Unremarkable. IMPRESSION: No acute findings.
--- NOTE | 2025-05-16 16:54 | CT_ITS ---
PROCEDURE INFORMATION: Exam: CT Abdomen And Pelvis Without Contrast Exam date and time: 05/16/2025 6:04 PM Age: 74 years old Clinical indication: Abdominal pain; Additional info: Left-sided flank pain/back pain history of stones TECHNIQUE: Imaging protocol: Computed tomography of the abdomen and pelvis without contrast. Radiation optimization: All CT scans at this facility use at least one of these dose optimization techniques: automated exposure control; mA and/or kV adjustment per patient size (includes targeted exams where dose is matched to clinical indication); or iterative reconstruction. COMPARISON: No relevant prior studies available. FINDINGS: Lungs: Lung bases are clear. Liver: Normal. No mass. Gallbladder and biliary ducts: Normal. No calcified stones. No ductal dilation. Pancreas: Normal. No ductal dilation. Spleen: Normal. No splenomegaly. Adrenal glands: Normal. No mass. Kidneys and ureters: 1 mm nonobstructing stone inferior left kidney. Kidneys and ureters otherwise unremarkable with no obstructing stones or uropathy. Stomach and bowel: Unremarkable. No obstruction. No mucosal thickening. Appendix: No evidence of appendicitis. Intraperitoneal space: Unremarkable. No free air. No significant fluid collection. Vasculature: Unremarkable. No abdominal aortic aneurysm. Lymph nodes: Unremarkable. No enlarged lymph nodes. Urinary bladder: Unremarkable as visualized. Reproductive: Unremarkable as visualized. Bones/joints: Unremarkable. No acute fracture. Soft tissues: Unremarkable. IMPRESSION: No acute abnormalities of the abdomen and pelvis. Nonemergent findings as above.
--- NOTE | 2025-05-16 16:54 | CT_ITS ---
PROCEDURE INFORMATION: Exam: CT Head Without Contrast Exam date and time: 05/16/2025 6:01 PM Age: 74 years old Clinical indication: Altered mental status/memory loss; Additional info: AMS TECHNIQUE: Imaging protocol: Computed tomography of the head without contrast. Radiation optimization: All CT scans at this facility use at least one of these dose optimization techniques: automated exposure control; mA and/or kV adjustment per patient size (includes targeted exams where dose is matched to clinical indication); or iterative reconstruction. COMPARISON: No relevant prior studies available. FINDINGS: Brain: There is age-appropriate cerebral atrophy. Moderate changes of chronic small vessel ischemia within the cerebral white matter regions bilaterally. No acute infarct or hemorrhage. No mass or midline shift. Cerebral ventricles: No ventriculomegaly. Paranasal sinuses: Visualized sinuses are unremarkable. No fluid levels. Mastoid air cells: Visualized mastoid air cells are well aerated. Bones: Unremarkable. No acute fracture. Soft tissues: Unremarkable. IMPRESSION: No acute intracranial abnormality.
--- NOTE | 2025-05-16 16:56 | CT_ITS ---
PROCEDURE INFORMATION: Exam: CT Lumbar Spine Without Contrast Exam date and time: 05/16/2025 6:08 PM Age: 74 years old Clinical indication: Low back pain; Additional info: Lower back pain TECHNIQUE: Imaging protocol: Computed tomography of the lumbar spine without contrast. Radiation optimization: All CT scans at this facility use at least one of these dose optimization techniques: automated exposure control; mA and/or kV adjustment per patient size (includes targeted exams where dose is matched to clinical indication); or iterative reconstruction. COMPARISON: CT ABDOMEN PELVIS WO CON 05/16/2025 6:04 PM FINDINGS: Bones/joints: Advanced multilevel degenerative disc disease involving all lumbar levels. No acute fracture. Advanced degenerative disc disease. L1-L2: Advanced degenerative disc disease. Bulging disc spur complex with moderate bilateral foramina narrowing. No significant central canal narrowing. L2-L3: Bulging disc spur complex with moderate bilateral foramina narrowing and mild central canal narrowing. L3-L4: Advanced degenerative disc disease with bulging disc spur complex and facet arthritic changes resulting in moderate bilateral foramina narrowing and moderate central canal narrowing. L4-L5: Advanced degenerative disc disease with bulging disc spur complex and facet arthritic changes resulting in [id number] foramina narrowing and moderate central canal narrowing. L5-S1: Advanced degenerative disc disease with bulging disc spur complex resulting in moderate to severe foramina narrowing but no significant central canal narrowing. Soft tissues: Unremarkable. IMPRESSION: Advanced degenerative disc disease. No acute abnormalities.
--- NOTE | 2025-05-16 16:56 | [facility].EDGENADL ---
Discharge Plan Disposition Patient Disposition: Home, Self-Care Condition: Good Prescriptions Prescriptions: No Action tamsulosin 0.4 mg capsule PO pioglitazone 45 mg tablet 45 mg PO famotidine 20 mg tablet 20 mg PO allopurinol 100 mg tablet 100 mg PO glipizide 10 mg tablet extended release 24hr PO doxazosin 4 mg tablet 2 mg PO aspirin [Adult Low Dose Aspirin] 81 mg tablet,delayed release (DR/EC) 81 mg PO DAILY mupirocin 2 % ointment 1 applic topical BID PRN (Reason: infection) 30 Days Qty: 22 1RF Referrals Follow up/Referrals: Samantha Vallecillo APRN [Primary Care Provider, Medical] - See instructions Activity Restrictions/Add. Instructions Additional Instructions/Restrictions: Please follow-up with your urologist, transcription manager, spine physician/pain management physician, please return to the emergency department with any worsening signs or symptoms. Clinical Impressions Clinical Impression: Lumbar spinal stenosis, Back pain, Acute kidney injury superimposed on chronic kidney disease Instructions Patient Instructions: DI for Low Back Pain, Chronic Kidney Disease, DI for Urinary Retention in Men Print Language Print Language: Setswana Discharge ED Provider: Carlos Hernandez General Adult HPI <CALDERON Stewart - Last Filed: 05/16/25 19:23> General Chief complaint: Urogenital-Male Stated complaint: Kidney issues,legs painful,back pain Time Seen by Provider: 05/16/25 16:44 Mode of Arrival: Ambulatory Source of Information: Patient Description of Symptoms (Recalled from ER Triage Doc. by RN): Patient is here after being sent by PCP for urinary incontinence and reported confusion over the last 2 months. Patient states about 2 months ago he had a stent placed by urologist for kidney stone, and had it in for 3-4 days, after it was removed he has been incontinent. He also had a lithotripsy done since then. History of Present Illness HPI narrative: 74-year-old male presents the emergency department for multiple medical reasons from PCPs office, primarily for urinary incontinence, generalized weakness and reported confusion worsening over the last 2 months, of note, family ember at the bedside states that the patient had what sounds like a ureteral stent placed on the left, for kidney stone 2 months ago by urologist, ever since his urinary stent was removed he has had incontinence , he is also had a lithotripsy done since the ureteral stent. Patient at the bedside is GCS of 15, no confusion per my exam, denies any fever chills, admits to shortness of breath at times, denies any chest pain, denies any abdominal pain, but does admit to some left-sided flank pain/back pain, denies any other urinary toxin otology such as dysuria, hematuria melena hematochezia or hematemesis, denies any diarrhea or constipation, patient is a non-smoker, denies any alcohol or drug use, other past medical history is consistent with type 2 diabetes, GERD. Initial triage vitals unremarkable. Onset (ago): month(s) Related Data Home Medications ?Medication ?Instructions ?Recorded ?Confirmed allopurinol 100 mg tablet 100 mg PO 10/21/21 04/02/25 aspirin 81 mg tablet,delayed 81 mg PO DAILY 10/21/21 04/02/25 release (Adult Low Dose Aspirin) doxazosin 4 mg tablet 2 mg PO 10/21/21 04/02/25 famotidine 20 mg tablet 20 mg PO 10/21/21 04/02/25 glipizide 10 mg tablet, extended tab PO 10/21/21 04/02/25 release 24 hr pioglitazone 45 mg tablet 45 mg PO 10/21/21 04/02/25 tamsulosin 0.4 mg capsule cap PO 10/21/21 04/02/25 Previous Rx's ?Medication ?Instructions ?Recorded mupirocin 2 % topical ointment 1 applic topical BID PRN infection 07/15/24 30 days #22 grams Allergies Allergy/AdvReac Type Severity Reaction Status Date / Time No Known Drug Allergies Allergy Verified 04/02/25 15:06 [facility] <CALDERON Stewart - Last Filed: 05/16/25 19:23> [facility] Disclaimer: The information contained in this section may have been updated after the patient was seen, as this information can be updated by other users. Medical History Hypertension Diabetes mellitus Surgical History History of shoulder surgery History of appendectomy History of total hip replacement Social History Smoking Status: Never smoker alcohol intake: never current occupational status: retired Travel in the last 8 weeks?: None Have you lived/traveled outside [place] in past 30 days?: No Contact w/someone who lives/traveled outside [place] past 30 days?: No Exposure to someone with infectious disease in past 14 days?: No Do you have a fever (greater than 100.4 F or 38 C)?: No Have you tested positive for COVID-19?: No Exposed to someone with COVID-19 in past 14 days?: No Do you have a sore throat?: No Do you have a cough?: No Do you have any weakness?: No Do you have any diarrhea?: No Are you experiencing any unusual bleeding?: No Do you have any muscle aches/pain?: No Do you have any abdominal pain?: No Are you experiencing loss of taste or smell?: No Other Medical History Have you received the Flu Vaccine for this season: Yes Have you received the Pneumonia Vaccine: No <CALDERON Stewart - Last Filed: 05/16/25 19:23> ROS Obtained: Yes All systems reviewed & no additional complaints except as documented Physical Exam <CALDERON Stewart - Last Filed: 05/16/25 19:23> General General appearance: alert and in no apparent distress Head Head exam: atraumatic and normocephalic Eye Eye exam: Present PERRL and EOMI ENT ENT exam: Present mucous membranes moist Neck Neck exam: Present normal inspection Chest Chest inspection: Present normal inspection and symmetric chest wall rise Respiratory Respiratory exam: Present normal lung sounds bilaterally; Absent respiratory distress Cardiovascular Cardiovascular exam: Present regular rate and normal rhythm Abdominal Exam Abdominal exam: Present soft and tenderness; Absent guarding, rebound or rigidity Abdominal tenderness: Present LUQ, LLQ and mild Extremities Exam Extremities exam: Present normal inspection Neurological Exam Neurological exam: Present alert and oriented X3 Psychiatric Psychiatric exam: Present normal affect Skin Skin exam: Present warm and dry Medical Decision Making <CALDERON Stewart - Last Filed: 05/16/25 19:23> Medical Records Medical records reviewed: Yes I reviewed the patient's medical records. Screening: Per USPSTF and CDC recommendations, given the prevalence of disease in our region, it is our hospital?s policy to screen for HIV and viral Hepatitis for all patients aged 18 and over and those with ongoing risk factors. [place] Inquiry Pt receiving controlled substance: No [place] was queried for this patient: No Vital Signs: 05/16/25 16:45 05/16/25 16:47 05/16/25 17:01 Temperature 98 F Temperature Source Oral Pulse Rate 80 76 Pulse Rate [Right Brachial] 93 H Respiratory Rate 16 16 16 Blood Pressure 140/77 113/59 L Blood Pressure [Right Arm] 140/77 Blood Pressure Mean 98 77 Blood Pressure Mean [Right Arm] 98 Blood Pressure Source Blood Pressure Source [Right Arm] Automatic Cuff Blood Pressure Position Blood Pressure Position [Right Arm] Supine 02 Sat by Pulse Oximetry 98 99 98 Oxygen Delivery Method Room Air 05/16/25 17:30 05/16/25 18:17 05/16/25 18:30 Temperature Temperature Source Pulse Rate 73 88 82 Pulse Rate [Right Brachial] Respiratory Rate Blood Pressure 100/64 L 130/76 113/70 Blood Pressure [Right Arm] Blood Pressure Mean Blood Pressure Mean [Right Arm] Blood Pressure Source Blood Pressure Source [Right Arm] Blood Pressure Position Blood Pressure Position [Right Arm] 02 Sat by Pulse Oximetry 98 99 98 Oxygen Delivery Method Room Air Room Air 05/16/25 19:24 05/16/25 19:32 Temperature 98.0 F Temperature Source Oral Pulse Rate 81 81 Pulse Rate [Right Brachial] Respiratory Rate 16 Blood Pressure 136/80 136/80 Blood Pressure [Right Arm] Blood Pressure Mean 98 Blood Pressure Mean [Right Arm] Blood Pressure Source Automatic Cuff Blood Pressure Source [Right Arm] Blood Pressure Position Sitting Blood Pressure Position [Right Arm] 02 Sat by Pulse Oximetry 99 Oxygen Delivery Method Room Air Lab Data Lab results reviewed: Yes I reviewed the patient's lab results. Lab Results 05/16/25 17:15: WBC 6.4, RBC 4.26 L, Hgb 13.1 L, Hct 40.1 L, MCV 94.1 H, MCH 30.8, MCHC 32.7, RDW 13.1, Plt Count 249, MPV 10.3, Neut % (Auto) 60.4, Lymph % (Auto) 25.5, Curry % (Auto) 6.8, Eos % (Auto) 5.9, Baso % (Auto) 1.1, Neut # (Auto) 3.9, Lymph # (Auto) 1.6, Curry # (Auto) 0.4, Eos # (Auto) 0.4, Baso # (Auto) 0.1, Sodium 138, Potassium 4.4, Chloride 100, Carbon Dioxide 27, Anion Gap 15.4 H, BUN 53 H, Creatinine 2.50 H, Estimated Creat Clear 35, Estimated GFR 25 L, Est GFR ( Amer) 31 L, Glucose 213 H, Calcium 10.5 H, Magnesium 1.7, Total Bilirubin 0.9, AST 32, ALT 25, Alkaline Phosphatase 72, Troponin I < 0.01, NT-Pro-B Natriuret Pep 62.3, Total Protein 7.5, Albumin 4.6, Globulin 2.9, Albumin/Globulin Ratio 1.6, Lipase 98 05/16/25 17:35: Ammonia < 9 L 05/16/25 18:45: Urine Color Yellow, Urine Appearance Clear, Urine pH 6.0, Ur Specific Joiner 1.010, Urine Protein Negative, Urine Glucose (UA) 3+, Urine Ketones Negative, Urine Blood Negative, Urine Nitrate Negative, Urine Bilirubin Negative, Urine Urobilinogen 0.2, Ur Leukocyte Esterase Negative, Urine RBC Occasional, Urine WBC 3-5, Ur Squamous Epith Cells 3-5, Urine Bacteria Trace, Urine Mucus 1+ 05/16/25 17:15 05/16/25 17:15 Orders (Tests/Meds): ORDERS Category Date Time Status CT abdomen pelvis wo con Stat Cat Scan 05/16/25 16:[address] head/brain wo con Stat Cat Scan 05/16/25 16:[address] lumbar spine wo con Stat Cat Scan 05/16/25 16:56 Completed XR chest portable Stat Exams 05/16/25 16:54 Completed Ammonia Stat Lab 05/16/25 17:35 Completed Complete Blood Count Auto Diff Stat Lab 05/16/25 17:15 Completed Comprehensive Metabolic Panel Stat Lab 05/16/25 17:15 Completed Lipase Stat Lab 05/16/25 17:15 Completed Magnesium Stat Lab 05/16/25 17:15 Completed NT Pro Brain Natriuretic Pep. Stat Lab 05/16/25 17:15 Completed Troponin I Stat Lab 05/16/25 17:15 Completed Urinalysis and Microscopic Stat Lab 05/16/25 18:45 Completed Medical Decision Narrative: 74-year-old male presents to the emergency department with multiple medical complaints, see HPI for detail past medical history, differential diagnose include but not limited, encephalopathy, metabolic cephalopathy, uremic cephalopathy, acute UTI, pneumonia, hypovolemia, degenerative disc disease of lumbar spine, hydronephrosis, urinary outflow obstruction, nephrolithiasis, ureterolithiasis among others. I discussed patient case with impression Dr. Hernandez Will obtain basic laboratory studies, ammonia level, magnesium level, proBNP, troponin, urinalysis, lipase, CXR, CT lumbar spine without contrast, CT head without contrast and CT and pelvis with contrast for further evaluation/characterization, will also obtain bladder scan and postvoid residual. CBC unremarkable CMP is notable for elevated BUN at 53, elevated creatinine of 2.5, GFR 25, hypercalcemia 10.5, thus will obtain Noncon CT abdomen pelvis. Troponin and proBNP within normal limits, lipase also within normal limits, ammonia within normal limits Postvoid residual bladder scan yields 250 mL in urinary bladder. Urinalysis is unremarkable, negative hematuria, negative nitrites, negative leukocyte Estrace. Reviewed the patient's chest x-ray along with corresponding radiologic report, no acute findings. I reviewed the patient's CTA abdomen pelvis without contrast, the corresponding radiologic reports, no acute abnormality of the abdomen pelvis nonemergent findings as above. I reviewed the patient's CT head without contrast along the corresponding radiologic report, no acute intracranial abnormality. I reviewed the patient's CT lumbar spine without contrast along the corresponding radiological report, there is advanced degenerative disc disease with no acute abnormalities. I discussed these results with the patient family at the bedside, patient does have history of CKD stage V, follows with pain management and what sounds like a spine surgeon for his lumbar spine pathology, while as well as urologist and is set up to see transcription manager in the upcoming weeks. Patient found to have acute on chronic kidney injury, and not having any acute urinary retention, thought to be multifactorial in the setting of possible BPH versus lumbar spinal canal stenosis, for which she has follow-up with, recommend continued follow-up, strict ED return precautions given. Patient and family voiced understanding and agreed with current treatment plan/discharge plan. Patient otherwise neurologically intact, no saddle anesthesia, no true urinary bladder or bowel dysfunction, no focal neurological deficit. <Carlos Hernandez MD - Last Filed: 05/17/25 15:11> Vital Signs: 05/16/25 16:45 05/16/25 16:47 05/16/25 17:01 Temperature 98 F Temperature Source Oral Pulse Rate 80 76 Pulse Rate [Right Brachial] 93 H Respiratory Rate 16 16 16 Blood Pressure 140/77 113/59 L Blood Pressure [Right Arm] 140/77 Blood Pressure Mean 98 77 Blood Pressure Mean [Right Arm] 98 Blood Pressure Source Blood Pressure Source [Right Arm] Automatic Cuff Blood Pressure Position Blood Pressure Position [Right Arm] Supine 02 Sat by Pulse Oximetry 98 99 98 Oxygen Delivery Method Room Air 05/16/25 17:30 05/16/25 18:17 05/16/25 18:30 Temperature Temperature Source Pulse Rate 73 88 82 Pulse Rate [Right Brachial] Respiratory Rate Blood Pressure 100/64 L 130/76 113/70 Blood Pressure [Right Arm] Blood Pressure Mean Blood Pressure Mean [Right Arm] Blood Pressure Source Blood Pressure Source [Right Arm] Blood Pressure Position Blood Pressure Position [Right Arm] 02 Sat by Pulse Oximetry 98 99 98 Oxygen Delivery Method Room Air Room Air 05/16/25 19:24 05/16/25 19:32 Temperature 98.0 F Temperature Source Oral Pulse Rate 81 81 Pulse Rate [Right Brachial] Respiratory Rate 16 Blood Pressure 136/80 136/80 Blood Pressure [Right Arm] Blood Pressure Mean 98 Blood Pressure Mean [Right Arm] Blood Pressure Source Automatic Cuff Blood Pressure Source [Right Arm] Blood Pressure Position Sitting Blood Pressure Position [Right Arm] 02 Sat by Pulse Oximetry 99 Oxygen Delivery Method Room Air Lab Data Lab Results 05/16/25 17:15: WBC 6.4, RBC 4.26 L, Hgb 13.1 L, Hct 40.1 L, MCV 94.1 H, MCH 30.8, MCHC 32.7, RDW 13.1, Plt Count 249, MPV 10.3, Neut % (Auto) 60.4, Lymph % (Auto) 25.5, Curry % (Auto) 6.8, Eos % (Auto) 5.9, Baso % (Auto) 1.1, Neut # (Auto) 3.9, Lymph # (Auto) 1.6, Curry # (Auto) 0.4, Eos # (Auto) 0.4, Baso # (Auto) 0.1, Sodium 138, Potassium 4.4, Chloride 100, Carbon Dioxide 27, Anion Gap 15.4 H, BUN 53 H, Creatinine 2.50 H, Estimated Creat Clear 35, Estimated GFR 25 L, Est GFR ( Amer) 31 L, Glucose 213 H, Calcium 10.5 H, Magnesium 1.7, Total Bilirubin 0.9, AST 32, ALT 25, Alkaline Phosphatase 72, Troponin I < 0.01, NT-Pro-B Natriuret Pep 62.3, Total Protein 7.5, Albumin 4.6, Globulin 2.9, Albumin/Globulin Ratio 1.6, Lipase 98 05/16/25 17:35: Ammonia < 9 L 05/16/25 18:45: Urine Color Yellow, Urine Appearance Clear, Urine pH 6.0, Ur Specific Joiner 1.010, Urine Protein Negative, Urine Glucose (UA) 3+, Urine Ketones Negative, Urine Blood Negative, Urine Nitrate Negative, Urine Bilirubin Negative, Urine Urobilinogen 0.2, Ur Leukocyte Esterase Negative, Urine RBC Occasional, Urine WBC 3-5, Ur Squamous Epith Cells 3-5, Urine Bacteria Trace, Urine Mucus 1+ Orders (Tests/Meds): ORDERS Category Date Time Status CT abdomen pelvis wo con Stat Cat Scan 05/16/25 16:[address] head/brain wo con Stat Cat Scan 05/16/25 16:[address] lumbar spine wo con Stat Cat Scan 05/16/25 16:56 Completed XR chest portable Stat Exams 05/16/25 16:54 Completed Ammonia Stat Lab 05/16/25 17:35 Completed Complete Blood Count Auto Diff Stat Lab 05/16/25 17:15 Completed Comprehensive Metabolic Panel Stat Lab 05/16/25 17:15 Completed Lipase Stat Lab 05/16/25 17:15 Completed Magnesium Stat Lab 05/16/25 17:15 Completed NT Pro Brain Natriuretic Pep. Stat Lab 05/16/25 17:15 Completed Troponin I Stat Lab 05/16/25 17:15 Completed Urinalysis and Microscopic Stat Lab 05/16/25 18:45 Completed ECG Data Tracing #1: I reviewed this ECG and interpreted as documented below: (Ventricular rate 80 bpm sinus rhythm. Intermittent PVCs. Artifactual electrical baseline, no obvious STEMI. Patient has what appears to be incomplete right bundle branch block morphology with QRS 97, NE 170, QTc 416. T wave inversions in lead III, no reciprocal elevations) Tracing #2: I reviewed this ECG and interpreted as documented below: (Sinus rhythm right bundle branch block 82 bpm with NE 176, QRS 153, QTc 453. No acute ischemic change) Medical Decision Narrative: 74-year-old male presents to the emergency department with multiple medical complaints, see HPI for detail past medical history, differential diagnose include but not limited, encephalopathy, metabolic cephalopathy, uremic cephalopathy, acute UTI, pneumonia, hypovolemia, degenerative disc disease of lumbar spine, hydronephrosis, urinary outflow obstruction, nephrolithiasis, ureterolithiasis among others. I discussed patient case with impression Dr. Hernandez Will obtain basic laboratory studies, ammonia level, magnesium level, proBNP, troponin, urinalysis, lipase, CXR, CT lumbar spine without contrast, CT head without contrast and CT and pelvis with contrast for further evaluation/characterization, will also obtain bladder scan and postvoid residual. CBC unremarkable CMP is notable for elevated BUN at 53, elevated creatinine of 2.5, GFR 25, hypercalcemia 10.5, thus will obtain Noncon CT abdomen pelvis. Troponin and proBNP within normal limits, lipase also within normal limits, ammonia within normal limits Postvoid residual bladder scan yields 250 mL in urinary bladder. Urinalysis is unremarkable, negative hematuria, negative nitrites, negative leukocyte Estrace. Reviewed the patient's chest x-ray along with corresponding radiologic report, no acute findings. I reviewed the patient's CTA abdomen pelvis without contrast, the corresponding radiologic reports, no acute abnormality of the abdomen pelvis nonemergent findings as above. I reviewed the patient's CT head without contrast along the corresponding radiologic report, no acute intracranial abnormality. I reviewed the patient's CT lumbar spine without contrast along the corresponding radiological report, there is advanced degenerative disc disease with no acute abnormalities. I discussed these results with the patient family at the bedside, patient does have history of CKD stage V, follows with pain management and what sounds like a spine surgeon for his lumbar spine pathology, while as well as urologist and is set up to see transcription manager in the upcoming weeks. Patient found to have acute on chronic kidney injury, and not having any acute urinary retention, thought to be multifactorial in the setting of possible BPH versus lumbar spinal canal stenosis, for which she has follow-up with, recommend continued follow-up, strict ED return precautions given. Patient and family voiced understanding and agreed with current treatment plan/discharge plan. Patient otherwise neurologically intact, no saddle anesthesia, no true urinary bladder or bowel dysfunction, no focal neurological deficit. I was consulted by the DALILA, and we discussed the complexity of the problems being addressed. I approved the treatment and management plan for this patient's care in the Emergency Department, thus performing a substantive portion of the medical decision making. Carlos Hernandez MD Critical Care <CALDERON Stewart - Last Filed: 05/16/25 19:23> Critical Care Time Critical Care Time: No
[2025-05-16 17:31] LABS: Basophils # 0.1 K/mm3 (0-0.2); Basophils % 1.1 % (0.1-2.0); Eosinophils # 0.4 Kmm3 (0.0-0.4); Eosinophils % 5.9 % (0.1-12.0); Hematocrit 40.1 % (42.0-52.0); Hemoglobin 13.1 g/dL (14.1-18.0); Immature Granulocytes # 0.02 10^3uL; Immature Granulocytes % 0.3 %; Lymphocytes # 1.6 K/mm3 (0.7-4.5); Lymphocytes % 25.5 % (10-50); Mean Corpuscular HGB Conc 32.7 g/dL (31.8-35.4); Mean Corpuscular Hemoglobin 30.8 pg (27.0-31.2); Mean Corpuscular Volume 94.1 fl (80-94); Mean Platelet Volume 10.3 fl (7.4-10.4); Monocytes # 0.4 K/mm3 (0.1-1.0); Monocytes % 6.8 % (1.7-9.3); Neutrophils # 3.9 K/mm3 (1.8-7.8); Neutrophils % 60.4 % (37.0-80.0); Nucleated Red Blood Cells # 0 10^3/uL; Nucleated Red Blood Cells % 0 %; Platelet Count 249 K/mm3 (142-424); Red Blood Count 4.26 M/mm3 (4.60-6.20); Red Cell Distribution Width 13.1 % (11.5-17.5); Red Cell Distribution Width-SD 44.9 fL; White Blood Count 6.4 K/mm3 (4.8-10.8)
[2025-05-16 17:43] LABS: Lipase 98 U/L (23-300)
[2025-05-16 17:44] LABS: Alanine Aminotransferase 25 U/L (12-78); Albumin Level 4.6 g/dl (3.5-5.0); Albumin/Globulin Ratio 1.6 (1.1-1.8); Alkaline Phosphatase 72 U/L (38-126); Anion Gap 15.4 mEq/L (5-15); Aspartate Amino Transferase 32 U/L (17-59); Bilirubin,Total 0.9 mg/dl (0.2-1.3); Blood Urea Nitrogen 53 mg/dl (9-20); Calcium 10.5 mg/dl (8.4-10.2); Carbon Dioxide 27 mmol/L (22.0-30.0); Chloride 100 mmol/L (98-107); Creatinine Clearance Estimated 35 mL/min (50-200); Estimated Glomerular Filt Rate 25 ml/min (>60); GFR (African American) 31 ML/MIN (>60); Globulin 2.9 g/dL (1.3-3.2); Glucose 213 mg/dl (74-100); Magnesium 1.7 mg/dl (1.6-2.3); Potassium 4.4 mmoL/L (3.5-5.1); Sodium 138 mmol/L (136-145); Total Protein,Serum 7.5 g/dl (6.3-8.2)
[2025-05-16 17:51] LABS: Ammonia < 9 umol/L (9-30)
[2025-05-16 17:55] LABS: NT Pro Brain Natriuretic Pep. 62.3 pg/mL (0-450)
[2025-05-16 17:59] LABS: Troponin I < 0.01 ng/ml (0.00-0.034)
--- NOTE | 2025-05-16 18:27 | ECG_ITS ---
APPROVED REPORT Exam: Resting ECG HR:80 bpm ECG Measurements Heart Rate 80 AXES NE 170 P 32 QRSd 97 QRS 13 QT 381 T 24 QTc 416 Conclusion Sinus rhythm Nondiagnostic electrical baseline Electronically signed by : CHIO FREEDMAN, 05/16/2025 22:58:53
[2025-05-16 18:50] LABS: Microscopic, Urine URINE MICROSCOPIC (MICROSCOPIC)
--- NOTE | 2025-05-16 18:50 | ECG_ITS ---
APPROVED REPORT Exam: Resting ECG HR:82 bpm ECG Measurements Heart Rate 82 AXES DE 176 P 50 QRSd 153 QRS 95 QT 414 T 39 QTc 453 Conclusion Sinus rhythm Right bundle branch block No STEMI Electronically signed by : CHIO FREEDMAN, 05/16/2025 23:00:24
[2025-05-16 18:53] LABS: Appearance,Urine CLEAR (Clear); Bilirubin,Urine Negative (Negative); Blood, Urine Negative (Negative); Color,Urine YELLOW (Yellow); Glucose,Urine (UA) 3+ (Negative); Ketones,Urine Negative (Negative); Leukocyte Esterase,Urine Negative (Negative); Nitrate,Urine Negative (Negative); Protein,Urine Negative (Negative); Urobilinogen,Urine 0.2 EU/dl (0.2)
[2025-05-16 19:16] LABS: RBC,Urine Occasional #/hpf (0-3)
[2025-05-16 19:17] LABS: Bacteria,Urine Trace /lpf; Mucus,Urine 1+ /lpf
== END 2025-05-16 19:33 | disposition home or self-care (01) ==
PROVIDERS: Physician Assistant; Emergency Provider Emergency Medicine; PCP Nurse Practitioner Family
DX: M48.061 Spinal stenosis, lumbar region without neurogenic claudication (principal); M54.50 Low back pain, unspecified; N18.9 Chronic kidney disease, unspecified
CPT/HCPCS: 51798; 70450; 71045; 72131; 74176; 80053; 81001; 82140; 83690; 83735; 83880; 84484; 85025; 93005; 99285

== ENCOUNTER 2025-06-15 12:26 | Emergency (ER) | payer MEDICARE, OTHER, SELFPAY ==
--- OUTSIDE RECORDS SUMMARY | 2025-03-27 09:30 | XMS_ITS ---
Author Organization [facility] [place] Address [address] [place] [address] Care Team Providers Care Tableau Lead Name Role Phone FRANK MATIAS Unavailable [phone] REASON FOR VISIT REF BY CANELO LEWIS FOR CKD Encounters Encounter Location Date Provider Diagnosis [facility] [address] [place] [address] 03/27/2025 FRANK MATIAS Plan Of Treatment No Information Progress Notes * EAKTERINA CISNEROSDOB:1950 ( 74 yo M)Acc No.[id number]:03/27/2025 Progress Notes Patient: EKATERINA AMBROCIO Provider: Med MATIAS M.D., F.A.C.P. :1950 A ge:74 Y S ex:Male Date:03/27/2025 Address:[address] [place], [place] [phone] Subjective: * Chief Complaints: * 1 . REF BY CANELO LEWIS FOR CKD. * Medical History: Objective: * Vitals: Assessment: Plan: * Treatment: * * Electronic signature of DOROTHEA MATIAS MD on 06/15/2025 at 12:52 PM EDT Sign off status: Pending * Provider: Med MATIAS M.D., F.A.C.P. Date: 0 03/27/2025 Generated for Chay shi/Minerva/eTbettysmitting on: 06/15/2025 12:52 PM EDT
--- OUTSIDE RECORDS SUMMARY | 2025-05-05 15:23 | XMS_ITS | Encounter Summary ---
Author Organization [employer] ([place], [place], [place], [place]) Address [address] [place] [address] Care Team Providers Care Teacher Of The Deaf Name Role Phone Avel Samantha Yennifer PACKAGE MAKER Primary Care Provider [phone] Reason for Referral * Diagnostic X-Ray (Emergency) - Pending Review Specialty Diagnoses / Procedures Referred By Contac t Referred To Contact Diagnoses Calculus of kidney Procedures X-ray abdomen KUB 1 view Derek Madrigal MD [address] [place] [address] [address] [place] [address] Phone: tel: fax: Referral ID Status Reason Start Date Expiration Date V isits Requested Visits Authorized [id number] Pending Review 05/05/2025 05/05/2026 1 1 Reason for Visit * Diagnostic X-Ray (Emergency) - Pending Review Specialty Diagnoses / Procedures Referred By Светлана barrios Referred To Contact Diagnoses Calculus of kidney Procedures X-ray abdomen KUB 1 view Derek Madrigal MD [address] [place] [address] [address] [place] [address] Phone: tel: fax: Referral ID Status Reason Start Date Expiration Date V isits Requested Visits Authorized [id number] Pending Review 05/05/2025 05/05/2026 1 1 Encounter Details Date Type Department Care Team (Late st Contact Info) Description 05/05/2025 3:23 PM EDT - 05/05/2025 11:59 PM EDT Hospital Encounter [facility] Diagnostic Imaging - [place] [address] [place] [address] [address] [place] [id number] Derek Madrigal MD [address] [facility] [address] [place], [place] [id number] Calculus of kidney Discharge Disposition: Home or Self Care Social History Tobacco Use Types Packs/Day Years Used Date Smoking Tobacco: Never Assessed Sex and Gender Information Value Date Recorded Sex Assigned at Not on file Legal Sex Male 7:42 AM DIRECTOR FAMILY Gender Identity Not on file Sexual Orientation [...] kidney documented in this encounter Care Teams Teacher Of The Deaf Relationship Specialty Start Date End Date Samantha Vallecillo, BONI [address] [place] [address] PCP - General Nurse Practitioner 02/13/25 documented as of this encounter
[2025-06-15] VITALS (12 sets, daily range): BP systolic 103–182; BP diastolic 69–116; PULSE 80–94; RESP 11–18; TEMP 36.9; O2SAT 97–100; BMI 31.4
--- NOTE | 2025-06-15 12:30 | ECG_ITS ---
APPROVED REPORT Exam: Resting ECG HR:93 bpm ECG Measurements Heart Rate 93 AXES LA 170 P 23 QRSd 105 QRS 89 QT 352 T 36 QTc 402 Conclusion SINUS RHYTHM WITH OCCASIONAL VENTRICULAR PREMATURE COMPLEXES LOW QRS VOLTAGE IN PRECORDIAL LEADS [QRS DEFLECTION < 1.0 mV IN CHEST LEADS] BORDERLINE ECG UNCONFIRMED REPORT Electronically signed by : LARISSA MELENDEZ, 06/17/2025 03:51:18
--- NOTE | 2025-06-15 12:44 | ED_ITS ---
Discharge Plan Disposition Patient Disposition: Home, Self-Care Prescriptions Prescriptions: No Action tamsulosin 0.4 mg capsule PO pioglitazone 45 mg tablet 45 mg PO famotidine 20 mg tablet 20 mg PO allopurinol 100 mg tablet 100 mg PO glipizide 10 mg tablet extended release 24hr PO doxazosin 4 mg tablet 2 mg PO aspirin [Adult Low Dose Aspirin] 81 mg tablet,delayed release (DR/EC) 81 mg PO DAILY mupirocin 2 % ointment 1 applic topical BID PRN (Reason: infection) 30 Days Qty: 22 1RF Referrals Follow up/Referrals: Samantha Vallecillo APRN [Primary Care Provider, Medical] - See instructions Activity Restrictions/Add. Instructions Additional Instructions/Restrictions: The sudden severe pain that you experienced in your back and neck and head yielded no emergency neurologic or cardiovascular emergency today. Please follow-up closely with your primary care doctor and return with any recurrence or worsening of your symptoms. Clinical Impressions Clinical Impression: Neck pain, Back pain Print Language Print Language: Jamaican Discharge ED Provider: Sav Junior General Adult HPI <Sav Junior MD - Last Filed: 06/15/25 15:03> General Chief complaint: Chest Pain Stated complaint: weakness Time Seen by Provider: 06/15/25 12:28 Mode of Arrival: EMS Source of Information: EMS Description of Symptoms (Recalled from ER Triage Doc. by RN): Reported that patient was at [employer] when he was feeling out of it and then started having pain in his back between his shoulder blades. EMS was called and he was given 324 mg aspirin. After that pain subsided and patient has no complaints on arrival to the ER. History of Present Illness HPI narrative: Patient is a 74-year-old male with past medical history of insulin-dependent diabetes, CKD who presents emergency department for evaluation of shoulder pain rating up to his neck. Onset was acute, he was sitting at [employer] and had severe shoulder pain between his shoulder blades rating up into his neck when he hunched over and became transiently lightheaded. As his pain eased off he had less lightheadedness but became concerned and presents here for continued evaluation. Patient did not fall or lose consciousness. No anticoagulants. No acute complaints at this time. Denies chest pain or ever having chest pain, abdominal pain, lower extremity pain. Please note that above description of symptoms, in this electronic medical record under categorization of recalled from ER triage doctor by RN are reflective of an initial nursing assessment, however, is not reflective of my full history and physical exam that was personally taken and clarified. Consequentially, this preceding description of symptoms, which may include the patient's categorized chief complaint in the EMR, do not reflect my personal clinical impression, and the ultimate description of history of present illness and patient stated complaints should be deferred to this section of the note. Unless stated otherwise or congruent with this section of the note, additional signs, symptoms, or incongruence should be interpreted as inaccurate with my clinical impression. Related Data Home Medications ?Medication ?Instructions ?Recorded ?Confirmed allopurinol 100 mg tablet 100 mg PO 10/21/21 04/02/25 aspirin 81 mg tablet,delayed 81 mg PO DAILY 10/21/21 0 04/02/25 release (Adult Low Dose Aspirin) doxazosin 4 mg tablet 2 mg PO 10/21/21 04/02/25 famotidine 20 mg tablet 20 mg PO 10/21/21 04/02/25 glipizide 10 mg tablet, extended tab PO 10/21/2104/02 release 24 hr pioglitazone 45 mg tablet 45 mg PO 10/21/21 04/02/25 tamsulosin 0.4 mg capsule cap PO 10/21/21 04/02/25 Previous Rx's ?Medication ?Instructions ?Recorded mupirocin 2 % topical ointment 1 applic topical BID MO N infection 07/15/24 30 days #22 grams Allergies Allergy/AdvReac Type Severity Reaction Status Date / Time No Known Drug Allergies Allergy Verified 04/02/25 15:06 [facility] <Sav Junior MD - Last Filed: 06/15/25 15:03> [facility] Disclaimer: The information contained in this section may have been updated after the patient was seen, as this information can be updated by other users. Medical History Hypertension Diabetes mellitus Surgical History History of shoulder surgery History of appendectomy History of total hip replacement Social History Smoking Status: Never smoker alcohol intake: never current occupational status: retired Travel in the last 8 weeks?: None Have you lived/traveled outside US in past 30 days?: No Contact w/someone who lives/traveled outside US past 30 days?: No Exposure to someone with infectious disease in past 14 days?: No Do you have a fever (greater than 100.4 F or 38 C)?: No Have you tested positive for COVID-19?: No Exposed to someone with COVID-19 in past 14 days?: No Do you have a sore throat?: No Do you have a cough?: No Do you have any weakness?: Yes Do you have any diarrhea?: No Are you experiencing any unusual bleeding?: No Do you have any muscle aches/pain?: No Do you have any abdominal pain?: No Are you experiencing loss of taste or smell?: No Other Medical History Have you received the Flu Vaccine for this season: Yes Have you received the Pneumonia Vaccine: No <Sav Junior MD - Last Filed: 06/15/25 15:03> ROS Obtained: Yes Systems reviewed as appropriate & no additional complaints except as documented Physical Exam <Sav Junior MD - Last Filed: 06/15/25 15:03> General General appearance: alert and in no apparent distress Head Head exam: atraumatic and normocephalic Eye Eye exam: Present PERRL and EOMI ENT ENT exam: Present mucous membranes moist Neck Neck exam: Present normal inspection and full ROM; Absent tenderness Chest Chest inspection: Present normal inspection and symmetric chest wall rise Respiratory Respiratory exam: Present normal lung sounds bilaterally; Absent respiratory distress Cardiovascular Cardiovascular exam: Present regular rate and normal rhythm Abdominal Exam Abdominal exam: Present soft; Absent tenderness Extremities Exam Extremities exam: Present normal inspection Neurological Exam Neurological exam: Present alert and CN II-XII intact; Absent motor sensory deficit Psychiatric Psychiatric exam: Present normal affect Skin Skin exam: Present warm and dry Medical Decision Making <Sav Junior MD - Last Filed: 06/15/25 15:03> Medical Records Screening: Per USPSTF and CDC recommendations, given the prevalence of disease in our region, it is our hospital?s policy to screen for HIV and viral Hepatitis for all patients aged 18 and over and those with ongoing risk factors. [place] Inquiry Pt receiving controlled substance: No Vital Signs: 06/15/25 12:30 06/15/25 12:32 06/15/25 13:00 Temperature 98.4 F Temperature Source Oral Pulse Rate 83 83 Pulse Rate [Right Brachial] 80 Respiratory Rate 16 11 L Blood Pressure 103/69 L 121/98 H Blood Pressure [Right Arm] 103/69 L Blood Pressure Mean Blood Pressure Mean [Right Arm] 80 Blood Pressure Source [Right Arm] Automatic Cuff Blood Pressure Position [Right Arm] Sitting 02 Sat by Pulse Oximetry 100 100 99 Oxygen Delivery Method Room Air 06/15/25 13:11 06/15/25 13:30 06/15/25 14:15 Temperature Temperature Source Pulse Rate 86 86 81 Pulse Rate [Right Brachial] Respiratory Rate 13 14 Blood Pressure 127/92 H 182/116 H Blood Pressure [Right Arm] Blood Pressure Mean Blood Pressure Mean [Right Arm] Blood Pressure Source [Right Arm] Blood Pressure Position [Right Arm] 02 Sat by Pulse Oximetry 99 98 Oxygen Delivery Method 06/15/25 15:00 06/15/25 15:09 06/15/25 16:00 Temperature Temperature Source Pulse Rate 89 88 90 Pulse Rate [Right Brachial] Respiratory Rate 14 18 17 Blood Pressure 121/83 121/83 145/82 H Blood Pressure [Right Arm] Blood Pressure Mean 95 Blood Pressure Mean [Right Arm] Blood Pressure Source [Right Arm] Blood Pressure Position [Right Arm] 02 Sat by Pulse Oximetry 100 99 99 Oxygen Delivery Method Room Air Room Air Lab Data Lab Results 06/15/25 12:34: WBC 6.4, RBC 3.89 L, Hgb 11.9 L, Hct 36.1 L, MCV 92.8, MCH 30.6, MCHC 33.0, RDW 13.0, Plt Count 227, MPV 10.5 H, Neut % (Auto) 73.1, Lymph % (Auto) 18.0, [place] % (Auto) 6.1, Eos % (Auto) 1.7, Baso % (Auto) 0.8, Neut # (Auto) 4.6, Lymph # (Auto) 1.1, [place] # (Auto) 0.4, Eos # (Auto) 0.1, Baso # (Auto) 0.1, Sodium 131 L, Potassium 5.4 H, Chloride 106, Carbon Dioxide 15 L, A nion Gap 15.4 H, BUN 79 H, Creatinine 2.70 H, Estimated Creat Clear 32, E stimated GFR 23 L, Est GFR ( Amer) 28 L, Glucose 155 H, Calcium 10.0, Magnesium 1.7, Total Bilirubin 0.7, AST 29, ALT 26, Alkaline Phosphatase 63, Troponin I < 0.01, Total Protein 6.3, Albumin 3.7, Globulin 2.6, Albumin/Globulin Ratio 1.4, HCV Ab REMI w/Rflx PCR Qn Negative, HIV Ag/Ab Combo Qual Negative 06/15/25 16:18: Troponin I < 0.01 06/15/25 12:34 06/15/25 12:34 Orders (Tests/Meds): ED MEDICATIONS Discontinued Medications Generic Name Dose Route Start Last Admin Trade Name Freq PRN Reason Stop Dose Admin Lactated Ringer's 1,000 mls @ 999 mls/hr 06/15/25 13:40 06/15/25 14:04 Lactated Ringer's 1000 Ml Bag IV 06/15/25 14:40 999 mls/hr .Q1H1M ONE Administration Iopamidol 160 ml 06/15/25 13:50 06/15/25 13:51 Iopamidol-370 (76%);100ml Bottle IV 06/15/25 13:51 160 ml ONCE ONE Administration Sodium Chloride 10 ml 06/15/25 13:50 06/15/25 13:51 Sodium Chloride 0.9% 10ml Syr (Rad Only) IV 06/15/25 13:51 10 ml ONCE ONE Administration Sodium Chloride 100 ml 06/15/25 13:50 06/15/25 13:51 0.9 % Sodium Chloride 50 Ml Vial IV 06/15/25 13:51 100 ml ONCE ONE Administration ORDERS Category Date Time Status CT angio chest - dissection Stat Cat Scan 06/15/25 12:[address] angio head Stat Cat Scan 06/15/25 12:[address] angio neck Stat Cat Scan 06/15/25 12:[address] head/brain wo con Stat Cat Scan 06/15/25 12:44 Completed CBC w/Auto Diff [Complete Blood Count Auto Diff] Stat Lab 06/15/25 12:34 Completed CMP [Comprehensive Metabolic Panel] Stat Lab 06/15/25 12:34 Completed HIV Combo Stat Lab 06/15/25 12:34 Completed Hepatitis C Ab Qual. W/ RFX Stat Lab 06/15/25 12:34 Completed MG [Magnesium] Stat Lab 06/15/25 12:34 Completed Trop I [Troponin I] Stat Lab 06/15/25 12:34 Completed Troponin I Q3H Lab 06/15/25 16:18 Completed Troponin I Q3H Lab 06/15/25 22:15 Ordered ECG Data Tracing #1: Independently interpreted by me rate is 93, rhythm is irregular, sinus arrhythmia, QTc 402, no ST elevation in anatomical contiguous leads. Medical Decision Narrative: In summary patient is 74-year-old male past medical history of scrota above presents emergency department for evaluation of bilateral shoulder pain radiating up into his neck with transient altered sensorium. Patient is hemodynamically stable nontoxic-appearing upon arrival, afebrile. States the pain between shoulder blades is improving and he does not feel lightheaded any longer. Differential includes aortic dissection, cervical artery dissection, vasovagal presyncope, critical ICA stenosis, among others. Workup we conducted with hematologic labs, CT angio chest, noncontrasted CT scan of the head CTA of the head and neck. Initial interventions were considered but will be deferred at this time given that he is otherwise well-appearing and euvolemic on my exam. Initial workup reviewed by me hematologic labs are nonactionable no significant leukocytosis or transfusable anemia, mild hyponatremia and worsening creatinine but nothing actionable at this time. Noncontrasted CT scan of the head informally visualized by me,, no acute large intracranial hemorrhage. Formal read head and neck no stenosis or occlusion on the neck, no acute findings in the head, atherosclerotic changes in the carotid siphons bilaterally but only producing mild luminal narrowing which I do not think are contributing to patient's clinical picture. CTA chest no informally visualized by me, no saddle embolism no obvious aortic dissection. Formal read pending at time of transfer of care to the oncoming physician, Dr. Ceja. <Andreia Ceja MD - Last Filed: 06/15/25 17:02> Vital Signs: 06/15/25 12:30 06/15/25 12:32 06/15/25 13:00 Temperature 98.4 F Temperature Source Oral Pulse Rate 83 83 Pulse Rate [Right Brachial] 80 Respiratory Rate 16 11 L Blood Pressure 103/69 L 121/98 H Blood Pressure [Right Arm] 103/69 L Blood Pressure Mean Blood Pressure Mean [Right Arm] 80 Blood Pressure Source [Right Arm] Automatic Cuff Blood Pressure Position [Right Arm] Sitting 02 Sat by Pulse Oximetry 100 100 99 Oxygen Delivery Method Room Air 06/15/25 13:11 06/15/25 13:30 06/15/25 14:15 Temperature Temperature Source Pulse Rate 86 86 81 Pulse Rate [Right Brachial] Respiratory Rate 13 14 Blood Pressure 127/92 H 182/116 H Blood Pressure [Right Arm] Blood Pressure Mean Blood Pressure Mean [Right Arm] Blood Pressure Source [Right Arm] Blood Pressure Position [Right Arm] 02 Sat by Pulse Oximetry 99 98 Oxygen Delivery Method 06/15/25 15:00 06/15/25 15:09 06/15/25 16:00 Temperature Temperature Source Pulse Rate 89 88 90 Pulse Rate [Right Brachial] Respiratory Rate 14 18 17 Blood Pressure 121/83 121/83 145/82 H Blood Pressure [Right Arm] Blood Pressure Mean 95 Blood Pressure Mean [Right Arm] Blood Pressure Source [Right Arm] Blood Pressure Position [Right Arm] 02 Sat by Pulse Oximetry 100 99 99 Oxygen Delivery Method Room Air Room Air Lab Data Lab results reviewed: Yes I reviewed the patient's lab results. Lab Results 06/15/25 12:34: WBC 6.4, RBC 3.89 L, Hgb 11.9 L, Hct 36.1 L, MCV 92.8, MCH 30.6, MCHC 33.0, RDW 13.0, Plt Count 227, MPV 10.5 H, Neut % (Auto) 73.1, Lymph % (Auto) 18.0, [place] % (Auto) 6.1, Eos % (Auto) 1.7, Baso % (Auto) 0.8, Neut # (Auto) 4.6, Lymph # (Auto) 1.1, [place] # (Auto) 0.4, Eos # (Auto) 0.1, Baso # (Auto) 0.1, Sodium 131 L, Potassium 5.4 H, Chloride 106, Carbon Dioxide 15 L, A nion Gap 15.4 H, BUN 79 H, Creatinine 2.70 H, Estimated Creat Clear 32, E stimated GFR 23 L, Est GFR ( Amer) 28 L, Glucose 155 H, Calcium 10.0, Magnesium 1.7, Total Bilirubin 0.7, AST 29, ALT 26, Alkaline Phosphatase 63, Troponin I < 0.01, Total Protein 6.3, Albumin 3.7, Globulin 2.6, Albumin/Globulin Ratio 1.4, HCV Ab REMI w/Rflx PCR Qn Negative, HIV Ag/Ab Combo Qual Negative 06/15/25 16:18: Troponin I < 0.01 Orders (Tests/Meds): ED MEDICATIONS Discontinued Medications Generic Name Dose Route Start Last Admin Trade Name Freq PRN Reason Stop Dose Admin Lactated Ringer's 1,000 mls @ 999 mls/hr 06/15/25 13:40 06/15/25 14:04 Lactated Ringer's 1000 Ml Bag IV 06/15/25 14:40 999 mls/hr .Q1H1M ONE Administration Iopamidol 160 ml 06/15/25 13:50 06/15/25 13:51 Iopamidol-370 (76%);100ml Bottle IV 06/15/25 13:51 160 ml ONCE ONE Administration Sodium Chloride 10 ml 06/15/25 13:50 06/15/25 13:51 Sodium Chloride 0.9% 10ml Syr (Rad Only) IV 06/15/25 13:51 10 ml ONCE ONE Administration Sodium Chloride 100 ml 06/15/25 13:50 06/15/25 13:51 0.9 % Sodium Chloride 50 Ml Vial IV 06/15/25 13:51 100 ml ONCE ONE Administration ORDERS Category Date Time Status CT angio chest - dissection Stat Cat Scan 06/15/25 12:[address] angio head Stat Cat Scan 06/15/25 12:[address] angio neck Stat Cat Scan 06/15/25 12:[address] head/brain wo con Stat Cat Scan 06/15/25 12:44 Completed CBC w/Auto Diff [Complete Blood Count Auto Diff] Stat Lab 06/15/25 12:34 Completed CMP [Comprehensive Metabolic Panel] Stat Lab 06/15/25 12:34 Completed HIV Combo Stat Lab 06/15/25 12:34 Completed Hepatitis C Ab Qual. W/ RFX Stat Lab 06/15/25 12:34 Completed MG [Magnesium] Stat Lab 06/15/25 12:34 Completed Trop I [Troponin I] Stat Lab 06/15/25 12:34 Completed Troponin I Q3H Lab 06/15/25 16:18 Completed Troponin I Q3H Lab 06/15/25 22:15 Ordered Medical Decision Narrative: In summary patient is 74-year-old male past medical history of scrota above presents emergency department for evaluation of bilateral shoulder pain radiating up into his neck with transient altered sensorium. Patient is hemodynamically stable nontoxic-appearing upon arrival, afebrile. States the pain between shoulder blades is improving and he does not feel lightheaded any longer. Differential includes aortic dissection, cervical artery dissection, vasovagal presyncope, critical ICA stenosis, among others. Workup we conducted with hematologic labs, CT angio chest, noncontrasted CT scan of the head CTA of the head and neck. Initial interventions were considered but will be deferred at this time given that he is otherwise well-appearing and euvolemic on my exam. Initial workup reviewed by me hematologic labs are nonactionable no significant leukocytosis or transfusable anemia, mild hyponatremia and worsening creatinine but nothing actionable at this time. Noncontrasted CT scan of the head informally visualized by me,, no acute large intracranial hemorrhage. Formal read head and neck no stenosis or occlusion on the neck, no acute findings in the head, atherosclerotic changes in the carotid siphons bilaterally but only producing mild luminal narrowing which I do not think are contributing to patient's clinical picture. CTA chest no informally visualized by me, no saddle embolism no obvious aortic dissection. Formal read pending at time of transfer of care to the oncoming physician, Dr. Ceja. This is Dr. Ceja took over from Dr. Junior around 3 PM pending CTA of the chest read. I personally interpreted the patient's CT scan of the patient's chest which showed no abnormality specifically no evidence of an aortic dissection radiology read was consistent with this as well. Also reviewed radiology reads of the other imaging which was unremarkable. Labs are unremarkable aside from patient's chronic kidney disease. Patient had a GFR less than [address] Junior was concerned about a life-threatening condition such as an aortic dissection therefore CT angios were ordered patient was given IV fluids he knows to follow-up closely with his primary care doctor. On my personal evaluation of the patient he is asymptomatic very well-appearing and stable. I also reviewed the patient's EKG which is nonischemic. Troponin undetectably low. Troponin was ordered 3 to 4 hours into likely stay therefore no further troponins are needed. Overall I agree with the above assessment and patient is stable to follow-up closely outpatient with his primary care doctor and return to the emergency room with any worsening of symptoms. I do not believe there is any further benefit of hospitalization at the moment. Critical Care <Sav Junior MD - Last Filed: 06/15/25 15:03> Critical Care Time Critical Care Time: No
--- NOTE | 2025-06-15 12:44 | CT_ITS ---
PROCEDURE INFORMATION: Exam: CTA Head With Contrast, Arteriography Exam date and time: 06/15/2025 1:53 PM Age: 74 years old Clinical indication: Other: Pain between shoulders, transient presyncope TECHNIQUE: Imaging protocol: Computed tomographic angiography of the head with contrast. Exam focused on the arteries. 3D rendering (Not supervised by radiologist): MIP and/or 3D reconstructed images were created by the technologist. Radiation optimization: All CT scans at this facility use at least one of these dose optimization techniques: automated exposure control; mA and/or kV adjustment per patient size (includes targeted exams where dose is matched to clinical indication); or iterative reconstruction. Contrast material: ISOVUE; Contrast volume: 80 ml; Contrast route: INTRAVENOUS (IV); COMPARISON: CT HEAD/BRAIN WO CON 06/15/2025 1:51 PM FINDINGS: ANTERIOR CIRCULATION: Right internal carotid artery: Moderate atherosclerotic changes in the right cavernous carotid produce mild luminal narrowing. Right middle cerebral artery: No occlusion or significant stenosis. No aneurysm. Right anterior cerebral artery: No occlusion or significant stenosis. No aneurysm. Left internal carotid artery: Moderate atherosclerotic changes in the left cavernous carotid produce mild luminal narrowing. Left middle cerebral artery: No occlusion or significant stenosis. No aneurysm. Left anterior cerebral artery: No occlusion or significant stenosis. No aneurysm. POSTERIOR CIRCULATION: Right vertebral artery: No occlusion or significant stenosis. No aneurysm. Left vertebral artery: No occlusion or significant stenosis. No aneurysm. Basilar artery: No occlusion or significant stenosis. No aneurysm. Right posterior cerebral artery: No occlusion or significant stenosis. No aneurysm. Left posterior cerebral artery: No occlusion or significant stenosis. No aneurysm. Brain: No definite mass, mass effect, or midline shift. Cerebral ventricles: No ventriculomegaly. Bones/joints: Unremarkable. No acute fracture. Soft tissues: Unremarkable. IMPRESSION: 1. Diffuse atherosclerotic changes involving carotid siphons bilaterally. 2. No large vessel occlusion.
--- NOTE | 2025-06-15 12:44 | CT_ITS ---
PROCEDURE INFORMATION: Exam: CTA Chest With Contrast Exam date and time: 06/15/2025 1:56 PM Age: 74 years old Clinical indication: Other: Pain between shoulders, transient presyncope; Additional info: Severe pain between shoulder blades rad to neck TECHNIQUE: Imaging protocol: Computed tomographic angiography of the chest with contrast. Exam focused on the arteries. 3D rendering (Not supervised by radiologist): MIP and/or 3D reconstructed images were created by the technologist. Radiation optimization: All CT scans at this facility use at least one of these dose optimization techniques: automated exposure control; mA and/or kV adjustment per patient size (includes targeted exams where dose is matched to clinical indication); or iterative reconstruction. Contrast material: ISOVUE; Contrast volume: 80 ml; Contrast route: INTRAVENOUS (IV); COMPARISON: CR XR CHEST PORTABLE 05/16/2025 6:11 PM FINDINGS: Pulmonary arteries: Normal. No pulmonary emboli. Aorta: Unremarkable. No aortic aneurysm. No aortic dissection. No acute intramural thoracic aortic hematoma. Lungs: Unremarkable. No consolidation. No masses. Pleural spaces: Unremarkable. No pneumothorax. No pleural effusion. Heart: Moderately severe coronary artery calcification is present. No cardiomegaly. No pericardial effusion. Large epicardial fat pads are seen on both sides of the heart giving the appearance of cardiomegaly. Lymph nodes: No enlarged lymph nodes. Small calcified nodes are present in the infracarinal region of the mediastinum. Bones/joints: Unremarkable. No acute fracture. Soft tissues: Unremarkable. IMPRESSION: 1. No acute findings. 2. Moderately severe coronary artery calcification is present. No cardiomegaly. No pericardial effusion. Large epicardial fat pads are seen on both sides of the heart giving the appearance of cardiomegaly on a plain chest radiograph.
--- NOTE | 2025-06-15 12:44 | CT_ITS ---
PROCEDURE INFORMATION: Exam: CTA Neck With Contrast Exam date and time: 06/15/2025 1:53 PM Age: 74 years old Clinical indication: Other: Severe pain between shoulder blades rad to neck TECHNIQUE: Imaging protocol: Computed tomographic angiography of the neck with contrast. Exam focused on the cervical segments of the vasculature. 3D rendering (Not supervised by radiologist): MIP and/or 3D reconstructed images were created by the technologist. Radiation optimization: All CT scans at this facility use at least one of these dose optimization techniques: automated exposure control; mA and/or kV adjustment per patient size (includes targeted exams where dose is matched to clinical indication); or iterative reconstruction. Contrast material: ISOVUE; Contrast volume: 80 ml; Contrast route: INTRAVENOUS (IV); COMPARISON: CT HEAD/BRAIN WO CON 06/15/2025 1:51 PM FINDINGS: Right common carotid artery: No stenosis. No dissection or occlusion. Right internal carotid artery: No stenosis of the extracranial segment. No dissection or occlusion. Right external carotid artery: No occlusion or stenosis of the origin. Left common carotid artery: No stenosis. No dissection or occlusion. Left internal carotid artery: No stenosis of the extracranial segment. No dissection or occlusion. Left external carotid artery: No occlusion or stenosis of the origin. Right vertebral artery: No stenosis. No dissection or occlusion. Left vertebral artery: No stenosis. No dissection or occlusion. Soft tissues: Normal. No significant soft tissue swelling. Bones/joints: No acute fracture. IMPRESSION: No stenosis or occlusion. REFERENCES: NASCET CRITERIA. The degree of stenosis in the cervical segment of the internal carotid artery is based on NASCET criteria. Normal is no stenosis. Mild is less than 50% stenosis. Moderate is 50-69% stenosis. Severe is 70% to 99% stenosis. Total occlusion is no detectable patent lumen.
--- NOTE | 2025-06-15 12:44 | CT_ITS ---
PROCEDURE INFORMATION: Exam: CT Head Without Contrast Exam date and time: 06/15/2025 1:51 PM Age: 74 years old Clinical indication: Altered mental status/memory loss and syncope and collapse; Additional info: Pain between shoulders, transient presyncope TECHNIQUE: Imaging protocol: Computed tomography of the head without contrast. Radiation optimization: All CT scans at this facility use at least one of these dose optimization techniques: automated exposure control; mA and/or kV adjustment per patient size (includes targeted exams where dose is matched to clinical indication); or iterative reconstruction. COMPARISON: CT HEAD/BRAIN WO CON 05/16/2025 6:01 PM FINDINGS: Brain: There is no evidence of acute intracranial hemorrhage, extra-axial collection or locoregional mass effect. There are scattered hypodensities in the periventricular and subcortical white matter. The appearance is nonspecific, but most likely represents chronic small vessel disease in a person of this age Cerebral ventricles: The ventricles, sulci and cisterns are normal in size and configuration for patient's age. No hydrocephalus or midline structure shift Pituitary gland and sella: Sellar/parasellar structures, craniocervical junction and orbits are unremarkable Paranasal sinuses: Visualized sinuses are unremarkable. No fluid levels. Mastoid air cells: Visualized mastoid air cells are well aerated. Bones: No calvarial fracture Soft tissues: Unremarkable. IMPRESSION: 1. No acute intracranial abnormality. No calvarial fracture. 2. If focal neurological symptoms persist brain MRI can be obtained for better evaluation
--- OUTSIDE RECORDS SUMMARY | 2025-06-15 12:52 | XMS_ITS | Continuity of Care Document ---
Author Organization [facility] Awa morton [facility] Address [address] [place] [address] Care Team Providers Care Rn Practitioner Name Role Phone DICK ROBERTS Primary [...] solifenacin, with dizziness as a side effect. [email or web address] Not available 05/06/2025 21:22:37 Plan of Treatment Reminders Order Date Submit Date Provider Last Modified By Organization Details Last Modified Time Details Appointments RECHECK 2024 01:30P Ken WELLS MD Not available Not available Not available Lab urinalysi s panel, auto 2024 025 [email or web address] [id number] [facility], [address], [address], [place], [address], 05/05/2025 16:44:04 Referral None recorded. Procedures None recorded. Surgeries None recorded. Imaging None recorded. Medication Orders fesoterod ine ER 8 mg tablet,ex tended release 24 hr 2024 025 KEERTHI [facility], [address] [place], [address], 05/05/2025 16:44:27 Patient TargetsNo targets recorded. Patient Instructions Encounter Date Encounter Id Patient Instructions Last Modified By Organization Details Last Modified Time 05/05/2025 [id number] - Continue takin g tamsulosin as prescribed. [...] auto Unknown Analyte Clean Catch Not Available [facility] [address], [place], [address], 05/05/2025 16:22:07 05/05/20 25 05/05/2025 urina lysis panel , auto Unknown Analyte Yellow Not Available [facility] [address] [place] [address] [address], [place], [address], 05/05/2025 16:22:07 05/05/20 25 05/05/2025 urina lysis panel , auto Unknown Analyte Clear Not Available [facility] [address] [facility] [address], [address], 05/05/2025 16:22:07 05/05/20 25 05/05/2025 urina lysis panel , auto Unknown Analyte 1.015 Not Available [facility] [address] [facility] [address], [address], 05/05/2025 16:22:07 05/05/20 25 05/05/2025 urina lysis panel , auto Unknown Analyte 1.003 - 1.030 Not Available [facility] [address], [place], [address], 05/05/2025 16:22:07 05/05/20 25 05/05/2025 urina lysis panel , auto Unknown Analyte 5.0 Not Available [facility] [address], [place], [address], 05/05/2025 16:22:07 05/05/20 25 05/05/2025 urina lysis panel , auto Unknown Analyte 5.0 - 8.0 Not Available [facility] [address], [place], [address], 05/05/2025 16:22:07 05/05/20 25 05/05/2025 urina lysis panel , auto Unknown Analyte Negati ve Not Available [facility] [address], [place], [address], 05/05/2025 16:22:07 05/05/20 25 05/05/2025 urina lysis panel , auto Unknown Analyte Negati ve Not Available [facility] [address], [place], [address], 05/05/2025 16:22:07 05/05/20 25 05/05/2025 urina lysis panel , auto Unknown Analyte Negati ve Not Available [facility] [address], [place], [address], 05/05/2025 16:22:07 05/05/20 25 05/05/2025 urina lysis panel , auto Unknown Analyte Negati ve Not Available [facility] [address], [place], [address], 05/05/2025 16:22:07 05/05/20 25 05/05/2025 urina lysis panel , auto Unknown Analyte Negati ve Not Available [facility] [address], [place], [address], 05/05/2025 16:22:07 05/05/20 25 05/05/2025 urina lysis panel , auto Unknown Analyte Negati ve Not Available [facility] [address], [place], [address], 05/05/2025 16:22:07 05/05/20 25 05/05/2025 urina lysis panel , auto Unknown Analyte Normal Not Available [facility] [address], [place], [address], 05/05/2025 16:22:07 05/05/20 25 05/05/2025 urina lysis panel , auto Unknown Analyte Normal Not Available [facility] [address], [place], [address], 05/05/2025 16:22:07 05/05/20 25 05/05/2025 urina lysis panel , auto Unknown Analyte Negati ve Not Available [facility] [address], [place], [address], 05/05/2025 16:22:07 05/05/20 25 05/05/2025 urina lysis panel , auto Unknown Analyte Negati ve Not Available [facility] [address], [place], [address], 05/05/2025 16:22:07 05/05/20 25 05/05/2025 urina lysis panel , auto Unknown Analyte Normal Not Available [facility] [address], [place], [address], 05/05/2025 16:22:07 05/05/20 25 05/05/2025 urina lysis panel , auto Unknown Analyte Normal Not Available [facility] [address], [place], [address], 05/05/2025 16:22:07 05/05/20 25 05/05/2025 urina lysis panel , auto Unknown Analyte Negati ve Not Available [facility] [address], [place], [address], 05/05/2025 16:22:07 05/05/20 25 05/05/2025 urina lysis panel , auto Unknown Analyte Negati ve Not Available [facility] [address], [place], [address], 05/05/2025 16:22:07 05/05/20 25 05/05/2025 urina lysis panel , auto Unknown Analyte Negati ve Not Available [facility] [address], [place], [address], 05/05/2025 16:22:07 05/05/20 25 05/05/2025 urina lysis panel , auto Unknown Analyte Negati ve Not Available [facility] [address], [place], [address], 05/05/2025 16:22:07 05/07/20 25 05/05/2025 XR, abdom en, 1 view No observ ation record ed. [email or web address] [facility] [address], [place], [address], 05/08/2025 15:48:32 Result Notes None recorded. Problems Name Problem SNOMED Code Status Onset Date Resolution Date Notes Provider Name and Address Organization Details Recorded Time Urolithiasis [id number] Active 018 Murelene Oscar [facility] 8 13:42:46 Problem Notes None recorded. Procedures Surgical History Date Name Laterality Status Provider Name and Address Organization Details Recorded Time 05/05/20 25 Post Void Residual; Ultrasound completed [facility] 05/05/2025 16:47:03 01/22/20 25 Post Void Residual; Ultrasound completed [facility] 01/21/2025 10:54:51 08/20/20 21 Unlisted px femur/knee completed Murelene Oscar [facility] 09/16/2021 12:54:24 Appendectomy completed Murelene Oscar [facility] 03/16/2017 16:31:38 Kidney Stones completed Murelene Oscar [facility] 03/16/2017 16:31:46 Knee arthroscopy/surg gilbert [facility] 14:13:46 Imaging Results None recorded. Procedure [...] Updated DateTime 05/05/2025 175.26 cm 31.5 kg/m2 98169.17 g Avelino Villarreal [facility] 05/05/2025 16:46:20 Social History Question Answer Notes LastModified by Organizat ion Details LastModified Time Tobacco Smoking Status Never Smoker Dane Moore [facility] 03/16/2017 16:31:28 What Was The Date Of Your Most Recent Tobacco Screening? 05/05/2025 Information not available 05/05/2025 Sex: Unknown Functional [...] adjuvanted, trivalent, PF 7 completed Halie Valdivia [facility] 05/12/2025 16:16:53 Influenza, MDCK, quadrivalent, PF 8 completed Halie Valdivia [facility] 05/12/2025 16:16:53 zoster recombinant 5 completed Halie Valdivia [facility] 05/12/2025 16:16:53 Influenza, high-dose, quadrivalent, PF 0 completed Halie Valdivia [facility] 05/12/2025 16:16:53 Influenza, high-dose, quadrivalent, PF 1 completed Halie Valdivia [facility] 05/12/2025 16:16:53 Influenza, high-dose, quadrivalent, PF 2 completed Haliehector Valdivia [facility] 05/12/2025 16:16:53 Influenza, high-dose, quadrivalent, PF 3 completed Haliehector Valdivia [facility] 05/12/2025 16:16:53 COVID-19, mRNA, LNP-S, PF, 100 mcg/0.5mL dose or 50 mcg/0.25mL dose 1 completed Halie Valdivia [facility] 05/12/2025 16:16:53 COVID-19, mRNA, LNP-S, PF, 100 mcg/0.5mL dose or 50 mcg/0.25mL dose 1 completed [facility] 05/12/2025 16:16:53 Pneumococcal conjugate PCV 13 8 completed [facility] 05/12/2025 16:16:53 Influenza, high-dose, trivalent, PF 4 completed [facility] 05/12/2025 16:16:53 Past Encounters Encounter ID Performer Location Encounter Start Date Encounter Closed Date Diagnosis/Indication Diagnosis SNOMED-CT Code Diagnosis ICD10 Code Diagnosis Note [id number] CORINA WELLS MD [facility] [address] [place] [address] 05/05/2025 15:31:15 05/05/2025 16:49:56 Benign prostatic hyperplasia with outflow obstruction 457584588 N13.8 N40.1 - Continue tamsulosin 0.8 mg daily.- Discontinu e solifenaci n due to dizziness; initiate fesoterodi ne.- Consider cystscopy if symptoms persist. - Monitor urinary symptoms and adjust medication s as needed. Nocturia 922269376 R35.1 - Addressed with medication adjustment s and monitoring . Kidney stone 83618190 N2 0.0 - Follow-up post-ESWL. Evaluate interventi [...] Name 05/05/2025 1 [place] Addison Peguero [id number] Addison Peguero 05/05/2025 2 [employer] (MEDICARE SUPPLEMENT) Addison Peguero [id number] Addison Peguero Notes Date Note Type Note [...] urine volume: 66 mL CORINA [place], [address], [facility] 05/06/2025 21:24:04
--- OUTSIDE RECORDS SUMMARY | 2025-06-15 12:52 | XMS_ITS | Patient Health Record ---
Author Organization [facility] Address [address] [place] [address] [place] [address] Care Team Providers Care Real Property Evaluator Name Role Phone FRANK MATIAS Unavailable [phone] Reason For Referral No Information Medications Medication [...] Provider Diagnosis [facility] [place] [address] [place], [place] [id number] 03/11/2025 FRANK MATIAS Plan Of Treatment No Information Medical (General) History Medical History History ICD Code hyperlipidemia, chronic gout y arhtritis, depresion, gerd, ckd, type 2 diabetes
--- OUTSIDE RECORDS SUMMARY | 2025-06-15 12:52 | XMS_ITS | Encounter Summary ---
Author Organization [employer] ([place], [place], [place], [place]) Address [address] [place] [address] Care Team Providers Care Bead Flipper Name Role Phone Samantha Vallecillon CD REACTOR OPERATOR HEAD Primary Care Provider [phone] Reason for Referral * Diagnostic X-Ray (Emergency) - Pending Review Specialty Diagnoses / Procedures Referred By Contnatasha t Referred To Contact Diagnoses Calculus of kidney Procedures X-ray abdomen KUB 1 view Derek Madrigal MD [address] [place] [address] [place] [address] Phone: tel: fax: Referral ID Status Reason Start Date Expiration Date V isits Requested Visits Authorized [id number] Pending Review 05/05/2025 05/05/2026 1 1 Encounter Details Date Type Department Care Team (Late st Contact Info) Description 05/05/2025 Outside Orders [facility] [address] [place] [address] [address] [place] [address] Derek Madrigal MD [address] [place] [address] [address] [place] [address] Calculus of kidney (Primary Dx) Social History Tobacco Use Types Packs/Day Years Used Date Smoking Tobacco: Never Assessed Sex and Gender Information Value Date Recorded Sex Assigned at Not on file 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
--- OUTSIDE RECORDS SUMMARY | 2025-06-15 12:52 | XMS_ITS | Encounter Summary ---
Author Organization [employer] ([place], [place], [place], [place]) Address [address] [place] [address] Care Team Providers Care Pharmacy Intake Technician Name Role Phone Samantha Vallecillo EDITOR MAP Primary Care Provider [phone] Reason for Referral * Diagnostic X-Ray (Emergency) - New Request Specialty Diagnoses / Procedures Referred By Светлана t Referred To Contact Diagnoses Calculus of kidney Procedures X-ray abdomen KUB 1 view Derek Madrigal MD [address] [place] [address] [place] [address] Phone: tel: fax: Referral ID Status Reason Start Date Expiration Date V isits Requested Visits Authorized [id number] New Request 01/24/2025 01/24/2026 1 1 Encounter Details Date Type Department Care Team (Late st Contact Info) Description 01/24/2025 Outside Orders [facility] [place] [facility] [address] [place] [address] Derek Madrigal MD [address] [place] [address] [address] [place] [address] Calculus of kidney (Primary Dx) Social History Tobacco Use Types Packs/Day Years Used Date Smoking Tobacco: Never Assessed Sex and Gender Information Value Date Recorded Sex Assigned at Not on file 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
--- OUTSIDE RECORDS SUMMARY | 2025-06-15 12:52 | XMS_ITS | Data Portability ---
Author Organization [facility] Address [address] [place] [address] Assessment Encounter Date Assessment Date Assessment LastModified by Organization Details LastModified Time 02/26/2025 02/26/2025 Continue current medications. Labs per [...] for next week 03/27/2025 at 1:45 in [place], he was provided appt info. He was advised to seek care with any severe or worsening pain, fever or chills. He was unable to void today, he will try to return urine sample for UA/culture today or tomorrow. Follow up as planned, sooner if needed Not available 03/21/2025 10:48:17 04/18/2025 04/18/2025 Change glipizide to jardiance as prescribed. Samples as packaged per patient registration clerk provided to patient today. Labs per plan below. Follow up in 1 month for recheck, sooner if needed. Not available 04/21/2025 09:44:20 05/16/2025 05/16/2025 I called patient and spoke with patients' daughter after discussion with patient. She is going to take him to the ER for further evaluation. He has had increased confusion, incontinence and lower back pain. I want to make sure that lower back pain is not contributing to the bladder changes and the pain was assumed to be kidney stone pain. I am also concerned with the new confusion. Patient is agreeable with this plan as well. Daughter to call me with update. He has an appt with Dr. Scott /[facility] office on 05/29. Power [phone] (daughter) Not available 05/16/2025 19:21:13 05/30/2025 05/30/2025 Plan to update shingrix at follow up. Continue jardiance - will increase with refill. Keep planned specialist appointments. Follow up in 1 month for recheck, sooner if needed Not available 06/01/2025 16:36:45 Plan of Treatment Reminders Order Date Submit Date Provider Last Modified By Organization Details Last Modified Time Details Appointments SAME DAY ACCESS 2024 05:30P Samantha Matta Not available Not available Not available FOLLOW UP 2024 11:30A Samantha Matta Not available Not available Not available Lab HbA1c (hemoglob in A1c), blood [address], [address], 05/16/2025 14:15:14 HbA1c (hemoglob in A1c), blood [address], [address], 04/18/2025 10:17:29 CMP, serum or plasma 2024 025 [facility] ([place]), [address] [place] [address], [id number], 04/19/2025 05:06:44 CBC w/ auto diff 2024 025 [facility] ([place]), [address] [place] [address], [id number], 04/19/2025 05:06:43 lipid panel, serum 2024 025 [facility] ([place]), [address] [place], [address], 04/19/2025 05:06:45 urinalysi s, dipstick [address], [place], [address], 03/22/2025 08:04:10 CMP, serum or plasma 2024 025 [facility] ([place]), [address] [place], [address], 02/27/2025 09:28:31 lipid panel, serum 2024 025 [facility] ([place]), [address] [place], [address], 02/27/2025 09:28:31 PSA, total, serum or plasma 2024 025 [facility] ([place]), [address] [place], [address], 02/27/2025 09:28:32 CBC w/ auto diff 2024 025 [place] ([place] [address] [place], [address], 02/27/2025 09:28:30 HbA1c (hemoglob in A1c), blood 2024 025 [place] [facility] ([place]), [address] [place], [address], 02/27/2025 09:28:32 Hepatitis C IgG Ab, qual, serum 2024 025 [facility] ([place]), [address] [place], [address], 02/27/2025 09:28:31 Referral None recorded. Procedures None recorded. Surgeries None recorded. Imaging None recorded. Medication Orders lisinopri l 20 mg-hydroc hlorothia zide 12.5 mg tablet 2024 025 [facility], [facility] [place], [address], 06/05/2025 16:26:13 allopurin ol 100 mg tablet 2024 025 [facility], [facility] [place], [address], 05/30/2025 09:48:58 Jardiance 10 mg tablet 2024 025 [facility], [address] [place] [address], [address], 04/18/2025 10:18:12 pioglitaz one 15 mg tablet 2024 025 [facility], [address] [place] [address], [id number], 04/18/2025 14:22:17 glipizide ER 10 mg tablet, extended release 24 hr 2024 025 [facility], [address] [place] [address], [id number], 04/18/2025 10:09:07 Patient TargetsNo targets recorded. Patient Instructions Encounter Date Encounter Id Patient Instructions Last Modified By Organization Details Last Modified Time 02/26/2025 [id number] high cholesterol : care instructions Not available 02/26/2025 09:26:12 type 2 diabetes: care instructions Not available 02/26/2025 09:26:12 03/21/2025 [id number] learning about type 2 diabetes Not available 03/21/2025 10:02:30 type 2 diabetes: care instructions Not available 03/21/2025 10:02:30 high cholesterol : care instructions Not available 03/21/2025 10:02:30 04/18/2025 [id number] learning about type 2 diabetes Not available 04/18/2025 10:17:29 type 2 diabetes: care instructions Not available 04/18/2025 10:17:29 Reason for Referral None Reported. Results Created Date Observation Date Name Description Value Unit Range Abnormal Flag Note LastModifiedBy Organization Detail LastModifiedTime 02/27/2002/27/2025 CBC WITH DIFFE RENTI AL/PL ATELE T WBC 14.3 x10e3 /uL 3.4-10 .8 above high normal Not Available [facility] ([facility]) [address] [place], [address], 02/27/2025 09:28:30 02/27/20 25 02/27/2025 CBC WITH DIFFE RENTI AL/PL ATELE T RBC 4.07 x10e6 /uL 4.14-5 .80 below low normal Not Available [facility] ([facility]) [address] [place], [address], 02/27/2025 09:28:30 02/27/2002/27/2025 CBC WITH DIFFE RENTI AL/PL ATELE T hemoglobin 12.9 g/dL 13.0-1 7.7 below low normal Not Available [facility] ([facility]) [address] [place], [address], 02/27/2025 09:28:30 02/27/2002/27/2025 CBC WITH DIFFE RENTI AL/PL ATELE T hematocrit 38.3 % 37.5-5 1.0 normal Not Available [facility] ([facility]) [address] [place], [address], 02/27/2025 09:28:30 02/27/20 25 02/27/2025 CBC WITH DIFFE RENTI AL/PL ATELE T MCV 94 fL 79-97 normal Not Available [facility] ([facility]) [address] [place], [address], 02/27/2025 09:28:30 02/27/20 25 02/27/2025 CBC WITH DIFFE RENTI AL/PL ATELE T MCH 31.7 pg 26.6-3 3.0 normal Not Available [facility] ([facility]) [address] [place], [address], 02/27/2025 09:28:30 02/27/20 25 02/27/2025 CBC WITH DIFFE RENTI AL/PL ATELE T MCHC 33.7 g/dL 31.5-3 5.7 normal Not Available [facility] ([facility]) [address] [place], [address], 02/27/2025 09:28:30 02/27/20 25 02/27/2025 CBC WITH DIFFE RENTI AL/PL ATELE T RDW 12.4 % 11.6-1 5.4 Not Available [facility] ([facility]) [address] [place], [address], 02/27/2025 09:28:30 02/27/20 25 02/27/2025 CBC WITH DIFFE RENTI AL/PL ATELE T platelets 277 x10e3 /uL 150-45 0 normal Not Available [facility] ([facility]) [address] [place], [address], 02/27/2025 09:28:30 02/27/2002/27/2025 CBC WITH DIFFE RENTI AL/PL ATELE T neutrophils 90 % not estab. normal Not Available [facility] ([facility]) [address] [place], [address], 02/27/2025 09:28:30 02/27/20 25 02/27/2025 CBC WITH DIFFE RENTI AL/PL ATELE T lymphs 6 % not estab. normal Not Available [facility] ([facility]) [address] [place], [address], 02/27/2025 09:28:30 04/09/02/27/2025 CBC WITH DIFFE RENTI AL/PL ATELE T monocytes 4 % not estab. normal Not Available [facility] ([facility]) [address] [facility], [place], [address], 02/27/2025 09:28:30 02/27/20 25 02/27/2025 CBC WITH DIFFE RENTI AL/PL ATELE T eos 0 % not estab. normal Not Available [facility] ([facility]) [address] [facility], [place], [address], 02/27/2025 09:28:30 02/27/20 25 02/27/2025 CBC WITH DIFFE RENTI AL/PL ATELE T basos 0 % not estab. normal Not Available [facility] ([facility]) [address] [facility], [place], [address], 02/27/2025 09:28:30 02/27/2002/27/2025 CBC WITH DIFFE RENTI AL/PL ATELE T immature cells ASSEMBLER GOLD FRAME Not Available [facility] ([facility]) [address] [place], [address], 02/27/2025 09:28:30 02/27/20 25 02/27/2025 CBC WITH DIFFE RENTI AL/PL ATELE T neutrophils (absolute) 12.9 x10e3 /uL 1.4-7. 0 above high normal Not Available [facility] ([facility]) [address] [place], [address], 02/27/2025 09:28:30 02/27/20 25 02/27/2025 CBC WITH DIFFE RENTI AL/PL ATELE T lymphs (absolute) 0.8 x10e3 /uL 0.7-3. 1 normal Not Available [facility] ([facility]) [address] [place], [address], 02/27/2025 09:28:30 02/27/20 25 02/27/2025 CBC WITH DIFFE RENTI AL/PL ATELE T monocytes(ab solute) 0.5 x10e3 /uL 0.1-0. 9 normal Not Available [facility] ([facility]) [address] [facility], [place], [address], 02/27/2025 09:28:30 02/27/20 25 02/27/2025 CBC WITH DIFFE RENTI AL/PL ATELE T eos (absolute) 0.0 x10e3 /uL 0.0-0. 4 normal Not Available [facility] ([facility]) [address] [facility], [place], [address], 02/27/2025 09:28:30 02/27/20 25 02/27/2025 CBC WITH DIFFE RENTI AL/PL ATELE T baso (absolute) 0.0 x10e3 /uL 0.0-0. 2 normal Not Available [facility] ([facility]) [address] [facility], [place], [address], 02/27/2025 09:28:30 02/27/20 25 02/27/2025 CBC WITH DIFFE RENTI AL/PL ATELE T immature granulocytes 0 % not estab. Not Available [facility] ([facility]) [address] [place], [address], 02/27/2025 09:28:30 02/27/20 25 02/27/2025 CBC WITH DIFFE RENTI AL/PL ATELE T immature grans (abs) 0.0 x10e3 /uL 0.0-0. 1 Not Available [facility] ([facility]) [address] [place], [address], 02/27/2025 09:28:30 02/27/20 25 02/27/2025 CBC WITH DIFFE RENTI AL/PL ATELE T NRBC ASSEMBLER GOLD FRAME Not Available [facility] ([facility]) [address] [place], [address], 02/27/2025 09:28:30 02/27/20 25 02/27/2025 CBC WITH DIFFE ANNABELLE AL/PL CARLEENLE T hematology comments: ASSEMBLER GOLD FRAME Not Available [facility] ([facility]) [address] [facility], [place], [address], 02/27/2025 09:28:30 02/27/20 25 02/27/2025 COMP. METAB OLIC PANEL (14) glucose 87 mg/dL 70-99 normal Not Available [facility] ([facility]) [address] [facility] [place] [place], [address], 02/27/2025 09:28:30 02/27/20 25 02/27/2025 COMP. METAB OLIC PANEL (14) BUN 46 mg/dL 8-27 above high normal Not Available [facility] ([facility]) [address] [facility], [place], [address], 02/27/2025 09:28:30 02/27/20 25 02/27/2025 COMP. METAB OLIC PANEL (14) creatinine 2.05 mg/dL 0.76-1 .27 above high normal Not Available [facility] ([facility]) [address] [facility] [place] [place], [address], 02/27/2025 09:28:30 02/27/20 25 02/27/2025 COMP. METAB OLIC PANEL (14) eGFR 33 mL/mi n/1.7 3 >59 below low normal Not Available [facility] ([facility]) [address] [place], [address], 02/27/2025 09:28:30 02/27/20 25 02/27/2025 COMP. METAB OLIC PANEL (14) BUN/creatini ne ratio 22 10-24 normal Not Available [facility] ([facility]) [address] [facility] [place] [place], [address], 02/27/2025 09:28:30 02/27/20 25 02/27/2025 COMP. METAB OLIC PANEL (14) sodium 141 mmol/ L 134-14 4 normal Not Available [facility] ([facility]) [address] [facility] [place] [place], [address], 02/27/2025 09:28:30 02/27/20 25 02/27/2025 COMP. METAB OLIC PANEL (14) potassium 4.6 mmol/ L 3.5-5. 2 normal Not Available [facility] ([facility]) [address] [facility] [place] [place], [address], 02/27/2025 09:28:30 02/27/20 25 02/27/2025 COMP. METAB OLIC PANEL (14) chloride 106 mmol/ L 96-106 normal Not Available [facility] ([facility]) [address] [facility] [place] [place], [address], 02/27/2025 09:28:30 02/27/20 25 02/27/2025 COMP. METAB OLIC PANEL (14) carbon dioxide, total 20 mmol/ L 20-29 normal Not Available [facility] ([facility]) [address] [facility] [place] [place], [address], 02/27/2025 09:28:30 02/27/20 25 02/27/2025 COMP. METAB OLIC PANEL (14) calcium 10.1 mg/dL 8.6-10 .2 normal Not Available [facility] ([facility]) [address] [facility] [place] [place], [address], 02/27/2025 09:28:30 02/27/20 25 02/27/2025 COMP. METAB OLIC PANEL (14) protein, total 6.7 g/dL 6.0-8. 5 normal Not Available [facility] ([facility]) [address] [facility] [place] [place], [address], 02/27/2025 09:28:30 02/27/20 25 02/27/2025 COMP. METAB OLIC PANEL (14) albumin 4.2 g/dL 3.8-4. 8 normal Not Available [facility] ([facility]) [address] [facility] [place], [address], 02/27/2025 09:28:30 02/27/20 25 02/27/2025 COMP. METAB OLIC PANEL (14) globulin, total 2.5 g/dL 1.5-4. 5 Not Available [facility] ([facility]) [address] [facility] [place], [address], 02/27/2025 09:28:30 02/27/20 25 02/27/2025 COMP. METAB OLIC PANEL (14) bilirubin, total 0.2 mg/dL 0.0-1. 2 normal Not Available [facility] ([facility]) [address] [facility] [place] [place], [address], 02/27/2025 09:28:30 02/27/20 25 02/27/2025 COMP. METAB OLIC PANEL (14) alkaline phosphatase 79 IU/L 44-121 normal Not Available [facility] ([facility]) [address] [facility] [place] [place], [address], 02/27/2025 09:28:30 02/27/20 25 02/27/2025 COMP. METAB OLIC PANEL (14) AST (SGOT) 19 IU/L 0-40 normal Not Available [facility] ([facility]) [address] [facility] [place] [place], [address], 02/27/2025 09:28:30 02/27/20 25 02/27/2025 COMP. METAB OLIC PANEL (14) ALT (SGPT) 17 IU/L 0-44 normal Not Available [facility] ([facility]) [address] [facility] [place] [place], [address], 02/27/2025 09:28:30 02/27/20 25 02/27/2025 LIPID PANEL cholesterol, total 192 mg/dL 100-19 9 normal Not Available [facility] ([facility]) [address] [facility] [place] [place], [address], 02/27/2025 09:28:31 02/27/20 25 02/27/2025 LIPID PANEL triglyceride s 51 mg/dL 0-149 normal Not Available [facility] ([facility]) [address] [facility], [place], [address], 02/27/2025 09:28:31 02/27/20 25 02/27/2025 LIPID PANEL HDL cholesterol 65 mg/dL >39 normal Not Available [facility] ([facility]) [address] [facility], [place], [address], 02/27/2025 09:28:31 02/27/20 25 02/27/2025 LIPID PANEL VLDL cholesterol sharona 10 mg/dL 5-40 Not Available [facility] ([facility]) [address] [facility], [place], [address], 02/27/2025 09:28:31 02/27/20 25 02/27/2025 LIPID PANEL LDL chol calc ([facility]) 117 mg/dL 0-99 above high normal Not Available [facility] ([facility]) [address] [facility], [place], [address], 02/27/2025 09:28:31 02/27/20 25 02/27/2025 LIPID PANEL LDL calc comment: ASSEMBLER GOLD FRAME Not Available [facility] ([facility]) [address] [facility], [place], [address], 02/27/2025 09:28:31 02/27/20 25 02/27/2025 HCV ANTIB JAIME CASCA DE(PC R/GEN O) HCV Ab Non Reacti ve non reacti ve Not Available [facility] ([facility]) [address] [facility], [place], [address], 02/27/2025 09:28:31 02/27/20 25 02/27/2025 HCV ANTIB JAIME CASCA DE(PC R/GEN O) interpretati on: Commen t Not infec dacia with HCV unles s early or acute infec tion is suspe cted (whic h may be delay ed in an immun ocomp romis ed indiv idual ), or other evide nce exist s to indic ate HCV infec tion. Not Available [facility] ([facility]) [address] [facility], [place], [address], 02/27/2025 09:28:31 02/27/20 25 02/27/2025 HEMOG LOBIN A1C hemoglobin A1C 7.2 % 4.8-5. 6 above high normal Predi abete s: 5.7 - 6.4 Diabe aguila: >6.4 Glyce blade contr ol for adult s with diabe aguila: <7.0 Not Available [facility] ([facility]) [address] [facility], [place], [address], 02/27/2025 09:28:32 02/27/20 25 02/27/2025 PROST ATE-S PECIF IC AG prostate specific [...] t be inter prete d as absol bren evide nce of the prese nce or absen ce of yokasta gonzalez se. Not Available [facility] ([facility]) [address] [facility], [place], [address], 02/27/2025 09:28:32 03/21/2003/21/2025 urina lysis , dipst ick Leukocytes Negati ve Not Available [address], [address], 03/21/2025 17:43:51 03/21/20 25 03/21/2025 urina lysis , dipst ick Nitrite negati ve Not Available [address], [address], 03/21/2025 17:43:51 03/21/20 25 03/21/2025 urina lysis , dipst ick Urobilinogen .2 Not Available [address], [address], 03/21/2025 17:43:51 03/21/20 25 03/21/2025 urina lysis , dipst ick Protein 30 Not Available [address], [address], 03/21/2025 17:43:51 03/21/20 25 03/21/2025 urina lysis , dipst ick pH 5.5 Not Available [address], [address], 03/21/2025 17:43:51 03/21/20 25 03/21/2025 urina lysis , dipst ick Blood Hemoly zed: Trace Not Available [address], [address], 03/21/2025 17:43:51 03/21/20 25 03/21/2025 urina lysis , dipst ick Specific [place] 1.025 Not Available [address], [address], 03/21/2025 17:43:51 03/21/20 25 03/21/2025 urina lysis , dipst ick Ketone Negati ve Not Available [address], [address], 03/21/2025 17:43:51 03/21/20 25 03/21/2025 urina lysis , dipst ick Bilirubin Negati ve Not Available [address], [address], 03/21/2025 17:43:51 03/21/20 25 03/21/2025 urina lysis , dipst ick Glucose Negati ve Not Available [address], [address], 03/21/2025 17:43:51 04/18/20 25 04/19/2025 CBC WITH DIFFE RENTI AL/PL ATELE T WBC 5.3 x10e3 /uL 3.4-10 .8 normal Not Available [facility] ([facility]) [address] [place], [address], 04/19/2025 05:06:43 04/18/20 25 04/19/2025 CBC WITH DIFFE RENTI AL/PL ATELE T RBC 4.07 x10e6 /uL 4.14-5 .80 below low normal Not Available [facility] ([facility]) [address] [place], [address], 04/19/2025 05:06:43 04/18/2004/19/2025 CBC WITH DIFFE RENTI AL/PL ATELE T hemoglobin 12.5 g/dL 13.0-1 7.7 below low normal Not Available [facility] ([facility]) [address] [place], [address], 04/19/2025 05:06:43 04/18/20 25 04/19/2025 CBC WITH DIFFE RENTI AL/PL ATELE T hematocrit 39.9 % 37.5-5 1.0 normal Not Available [facility] ([facility]) [address] [place], [address], 04/19/2025 05:06:43 04/18/20 25 04/19/2025 CBC WITH DIFFE RENTI AL/PL ATELE T MCV 98 fL 79-97 above high normal Not Available [facility] ([facility]) [address] [place], [address], 04/19/2025 05:06:43 04/18/20 25 04/19/2025 CBC WITH DIFFE RENTI AL/PL ATELE T MCH 30.7 pg 26.6-3 3.0 normal Not Available [facility] ([facility]) [address] [place], [address], 04/19/2025 05:06:43 04/18/20 25 04/19/2025 CBC WITH DIFFE RENTI AL/PL ATELE T MCHC 31.3 g/dL 31.5-3 5.7 below low normal Not Available [facility] ([facility]) [address] [place], [address], 04/19/2025 05:06:43 04/18/20 25 04/19/2025 CBC WITH DIFFE RENTI AL/PL ATELE T RDW 12.5 % 11.6-1 5.4 Not Available [facility] ([facility]) [address] [place], [address], 04/19/2025 05:06:43 04/18/20 25 04/19/2025 CBC WITH DIFFE RENTI AL/PL ATELE T platelets 236 x10e3 /uL 150-45 0 normal Not Available [facility] ([facility]) [address] [place], [address], 04/19/2025 05:06:43 04/18/20 25 04/19/2025 CBC WITH DIFFE RENTI AL/PL ATELE T neutrophils 62 % not estab. normal Not Available [facility] ([facility]) [address] [place], [address], 04/19/2025 05:06:43 04/18/20 25 04/19/2025 CBC WITH DIFFE RENTI AL/PL ATELE T lymphs 25 % not estab. normal Not Available [facility] ([facility]) [address] [facility], [place], [address], 04/19/2025 05:06:43 04/18/20 25 04/19/2025 CBC WITH DIFFE RENTI AL/PL ATELE T monocytes 6 % not estab. normal Not Available [facility] ([facility]) [address] [facility], [place], [address], 04/19/2025 05:06:43 04/18/20 25 04/19/2025 CBC WITH DIFFE RENTI AL/PL ATELE T eos 6 % not estab. normal Not Available [facility] ([facility]) [address] [place], [address], 04/19/2025 05:06:43 04/18/20 25 04/19/2025 CBC WITH DIFFE RENTI AL/PL ATELE T basos 1 % not estab. normal Not Available [facility] ([facility]) [address] [place], [address], 04/19/2025 05:06:43 04/18/20 25 04/19/2025 CBC WITH DIFFE RENTI AL/PL ATELE T immature cells ASSEMBLER GOLD FRAME Not Available [facility] ([facility]) [address] [place], [address], 04/19/2025 05:06:43 04/18/20 25 04/19/2025 CBC WITH DIFFE RENTI AL/PL ATELE T neutrophils (absolute) 3.3 x10e3 /uL 1.4-7. 0 normal Not Available [facility] ([facility]) [address] [place], [address], 04/19/2025 05:06:43 04/18/20 04/19/2025 CBC WITH DIFFE RENTI AL/PL ATELE T lymphs (absolute) 1.3 x10e3 /uL 0.7-3. 1 normal Not Available [facility] ([facility]) [address] [facility], [place], [address], 04/19/2025 05:06:43 04/18/20 25 04/19/2025 CBC WITH DIFFE RENTI AL/PL ATELE T monocytes(ab solute) 0.3 x10e3 /uL 0.1-0. 9 normal Not Available [facility] ([facility]) [address] [facility], [place], [address], 04/19/2025 05:06:43 04/18/20 25 04/19/2025 CBC WITH DIFFE RENTI AL/PL ATELE T eos (absolute) 0.3 x10e3 /uL 0.0-0. 4 normal Not Available [facility] ([facility]) [address] [place], [address], 04/19/2025 05:06:43 04/18/20 25 04/19/2025 CBC WITH DIFFE RENTI AL/PL ATELE T baso (absolute) 0.1 x10e3 /uL 0.0-0. 2 normal Not Available [facility] ([facility]) [address] [place], [address], 04/19/2025 05:06:43 04/18/2004/19/2025 CBC WITH DIFFE RENTI AL/PL ATELE T immature granulocytes 0 % not estab. Not Available [facility] ([facility]) [address] [place], [address], 04/19/2025 05:06:43 04/18/20 25 04/19/2025 CBC WITH DIFFE RENTI AL/PL ATELE T immature grans (abs) 0.0 x10e3 /uL 0.0-0. 1 Not Available [facility] ([facility]) [address] [place], [address], 04/19/2025 05:06:43 04/18/20 25 04/19/2025 CBC WITH DIFFE RENTI AL/PL ATELE T NRBC ASSEMBLER GOLD FRAME Not Available [facility] ([facility]) [address], [place], [address], 04/19/2025 05:06:43 04/18/20 25 04/19/2025 CBC WITH DIFFE RENTI AL/PL ATELE T hematology comments: ASSEMBLER GOLD FRAME Not Available [facility] ([facility]) [address] [facility], [place], [address], 04/19/2025 05:06:43 04/18/20 25 04/19/2025 COMP. METAB OLIC PANEL (14) glucose 121 mg/dL 70-99 above high normal Not Available [facility] ([facility]) [address] [facility] [place], [address], 04/19/2025 05:06:44 04/18/20 25 04/19/2025 COMP. METAB OLIC PANEL (14) BUN 35 mg/dL 8-27 above high normal Not Available [facility] ([facility]) [address] [facility] [place] [place], [address], 04/19/2025 05:06:44 04/18/20 25 04/19/2025 COMP. METAB OLIC PANEL (14) creatinine 2.02 mg/dL 0.76-1 .27 above high normal Not Available [facility] ([facility]) [address] [facility], [place], [address], 04/19/2025 05:06:44 04/18/20 25 04/19/2025 COMP. METAB OLIC PANEL (14) eGFR 34 mL/mi n/1.7 3 >59 below low normal Not Available [facility] ([facility]) [address] [facility], [place], [address], 04/19/2025 05:06:44 04/18/20 25 04/19/2025 COMP. METAB OLIC PANEL (14) BUN/creatini ne ratio 17 10-24 normal Not Available [facility] ([facility]) [address] [facility] [place], [address], 04/19/2025 05:06:44 04/18/20 25 04/19/2025 COMP. METAB OLIC PANEL (14) sodium 142 mmol/ L 134-14 4 normal Not Available [facility] ([facility]) [address] [facility] [place], [address], 04/19/2025 05:06:44 04/18/20 25 04/19/2025 COMP. METAB OLIC PANEL (14) potassium 4.5 mmol/ L 3.5-5. 2 normal Not Available [facility] ([facility]) [address] [facility] [place] [place], [address], 04/19/2025 05:06:44 04/18/20 25 04/19/2025 COMP. METAB OLIC PANEL (14) chloride 107 mmol/ L 96-106 above high normal Not Available [facility] ([facility]) [address] [facility] [place] [place], [address], 04/19/2025 05:06:44 04/18/20 25 04/19/2025 COMP. METAB OLIC PANEL (14) carbon dioxide, total 17 mmol/ L 20-29 below low normal Not Available [facility] ([facility]) [address] [facility] [place] [place], [address], 04/19/2025 05:06:44 04/18/20 25 04/19/2025 COMP. METAB OLIC PANEL (14) calcium 9.6 mg/dL 8.6-10 .2 normal Not Available [facility] ([facility]) [address] [facility] [place] [place], [address], 04/19/2025 05:06:44 04/18/20 25 04/19/2025 COMP. METAB OLIC PANEL (14) protein, total 6.5 g/dL 6.0-8. 5 normal Not Available [facility] ([facility]) [address] [place], [address], 04/19/2025 05:06:44 04/18/20 25 04/19/2025 COMP. METAB OLIC PANEL (14) albumin 4.3 g/dL 3.8-4. 8 normal Not Available [facility] ([facility]) [address] [place], [address], 04/19/2025 05:06:44 04/18/20 25 04/19/2025 COMP. METAB OLIC PANEL (14) globulin, total 2.2 g/dL 1.5-4. 5 Not Available [facility] ([facility]) [address], [place], [address], 04/19/2025 05:06:44 04/18/20 25 04/19/2025 COMP. METAB OLIC PANEL (14) bilirubin, total 0.6 mg/dL 0.0-1. 2 normal Not Available [facility] ([facility]) [address] [place], [address], 04/19/2025 05:06:44 04/18/20 25 04/19/2025 COMP. METAB OLIC PANEL (14) alkaline phosphatase 71 IU/L 44-121 normal Not Available [facility] ([facility]) [address] [place], [address], 04/19/2025 05:06:44 04/18/20 25 04/19/2025 COMP. METAB OLIC PANEL (14) AST (SGOT) 23 IU/L 0-40 normal Not Available [facility] ([facility]) [address] [place], [address], 04/19/2025 05:06:44 04/18/20 25 04/19/2025 COMP. METAB OLIC PANEL (14) ALT (SGPT) 17 IU/L 0-44 normal Not Available [facility] ([facility]) [address] [place], [address], 04/19/2025 05:06:44 04/18/20 25 04/19/2025 LIPID PANEL cholesterol, total 139 mg/dL 100-19 9 normal Not Available [facility] ([facility]) [address] [place], [address], 04/19/2025 05:06:45 04/18/20 25 04/19/2025 LIPID PANEL triglyceride s 60 mg/dL 0-149 normal Not Available [facility] ([facility]) [address] [place], [address], 04/19/2025 05:06:45 04/18/20 25 04/19/2025 LIPID PANEL HDL cholesterol 57 mg/dL >39 normal Not Available [facility] ([facility]) [address] [place], [address], 04/19/2025 05:06:45 04/18/20 25 04/19/2025 LIPID PANEL VLDL cholesterol sharona 13 mg/dL 5-40 Not Available [facility] ([facility]) [address] [place], [address], 04/19/2025 05:06:45 04/18/20 25 04/19/2025 LIPID PANEL LDL chol calc ([facility]) 69 mg/dL 0-99 Not Available [facility] ([facility]) [address] [place], [address], 04/19/2025 05:06:45 04/18/20 25 04/19/2025 LIPID PANEL LDL calc comment: [employer] Not Available [facility] ([facility]) [address] [place], [address], 04/19/2025 05:06:45 04/18/20 25 04/24/2025 IRON AND TIBC iron bind.cap.(TI BC) 300 ug/dL 250-45 0 normal Not Available [facility] ([facility]) [address] [facility], [place], [address], 04/24/2025 04:07:12 04/18/20 25 04/24/2025 IRON AND TIBC UIBC 183 ug/dL 111-34 3 normal Not Available [facility] ([facility]) [address] [facility], [place], [address], 04/24/2025 04:07:12 04/18/20 25 04/24/2025 IRON AND TIBC iron 117 ug/dL 38-169 normal Not Available [facility] ([facility]) [address] [facility], [place], [address], 04/24/2025 04:07:12 04/18/20 25 04/24/2025 IRON AND TIBC iron saturation 39 % 15-55 normal Not Available [facility] ([facility]) [address] [facility], [place], [address], 04/24/2025 04:07:12 04/18/20 25 04/23/2025 MARY EN AUTHO RIZAT ION written authorizatio n Jaspal Tabor en Autho rizat ion Recei noel. Autho rizat ion recei noel from MARY [employer] [address] 04-23 Logge d by Sandeep Nieto an Not Available [facility] ([facility]) [address] [facility], [place], [address], 04/24/2025 04:07:12 04/18/20 25 04/18/2025 HbA1c (hemo globi n A1c), blood HbA1c 6.7 Not Available [address], [address], 04/18/2025 09:43:05 05/16/20 25 05/16/2025 HbA1c (hemo globi n A1c), blood HbA1c 6.8 Not Available [address], [address], 05/16/2025 13:26:07 02/20/20 25 02/19/2025 XR, shoul crissy, 2 or more view No observ ation record ed. [address] (Radiology) [address] , [place], [address], 02/21/2025 10:25:13 02/20/20 25 02/19/2025 XR, shoul crissy, 2 or more view No observ ation record ed. [address] (Radiology) [address] [place], [address], 02/21/2025 10:24:46 05/07/20 25 05/05/2025 XR, abdom en No observ ation record ed. [facility] [address] [facility] [address], [place], [address], 05/07/2025 09:42:29 05/16/20 25 05/16/2025 XR, chest No observ ation record ed. [address], [place], [address], 05/19/2025 09:20:50 05/16/20 25 05/16/2025 CT, angio gram, chest , w/o contr ast No observ ation record ed. [place] [address], [place], [address], 05/19/2025 09:41:06 05/16/20 25 05/16/2025 CT, head + brain , w/o contr ast No observ ation record ed. [place] [address], [place], [address], 05/19/2025 09:40:47 05/16/20 25 05/16/2025 CT, lumba r spine , w/wo contr ast No observ ation record ed. [address], [place], [address], 05/19/2025 09:40:27 05/16/20 25 05/16/2025 cardi ac stres s test No observ ation record ed. [address], [place], [address], 05/29/2025 08:44:47 05/16/20 25 05/16/2025 elect rasta rodriguezgr am, routi ne ECG, 12 leads min No observ ation record ed. [address], [place], [address], 05/29/2025 08:44:14 05/23/20 25 05/23/2025 XR, abdom en No observ ation record ed. [address] (Radiology) [address] , [place], [address], 05/29/2025 08:42:01 05/26/20 CT, cervi sharona spine , w/o contr ast No observ ation record ed. [email or web address] Not Available 05/2025 14:02:24 Result Notes None recorded. Problems Name Problem SNOMED Code Status Onset Date Resolution Date Notes Provider Name and Address Organization Details Recorded Time Infection of toe 923523013 Completed 202310/31/2024 Samantha Vallecillo NP [address] [place] [address], [address], [employer] 4 12:09:10 Onychomycos is of toenails 873197812 Completed 202310/31/2024 Samantha Vallecillo NP [address] [place] [address], [address], [employer] 4 12:09:13 Type 2 diabetes mellitus without complicatio n 219433126 Completed 202303/21/2025 Samantha Vallecillo NP [address] [place] [address], [address], [employer] 5 10:01:28 Gastroesoph ageal reflux disease without esophagitis 114398101 Active 2023 Samantha Vallecillo NP [address] [place] [address], [address] 8, [employer] 4 12:09:07 Chronic gouty arthritis 80456592 Active 2023 Samantha Vallecillo NP [address] [place] [address], [address] 8, [employer] 4 12:09:05 Body mass index 30+ - obesity 586746228 Active 2023 Samantha Vallecillo NP [address] [place] [address], [address] 8, [employer] 4 12:09:30 Hypertensiv e disorder 78303823 Active 2023 Samantha Vallecillo NP [address] [place] [address], [address] 8, [employer] 4 12:09:25 Hyperlipide miguel 94699436 Active 2024 Samantha Vallecillo NP [address] [place] [address], [address] 8, [employer] 5 09:07:34 Adjustment disorder with depressed mood 61420518 Active 2024 Samantha Vallecillo NP [address] [place] [address], [address] 8, [employer] 5 09:07:38 Chronic kidney disease 660821818 Active 2024 Samantha Vallecillo NP [address] [place] [address], [address] 8, [employer] 5 09:59:50 Type 2 diabetes mellitus 54988198 Active 2024 Samantha Vallecillo NP [address] [place] [address], [address] 8, [employer] 5 10:01:21 Dizziness 853595051 Active 2024 Samantha Vallecillo, BONI [address] [place], [address], [employer] 5 10:13:57 Anemia 695191321 Active 2024 Samantha Vallecillo, [employer] [address] [place], [address], [employer] 5 13:03:12 Kidney stone 82270756 Active 2024 Samantha Vallecillo, [employer] [address] [place] [address], [address] 8, [employer] 5 16:08:49 Chronic low back pain 776829812 Active 2024 Samantha Vallecillo NP [address] [place] [address], [address] 8, [employer] 5 13:48:49 Urinary incontinenc e 562393558 Active 2024 Samantha Vallecillo NP [address] [place] [address], [address], [employer] 14:07:05 Problem Notes None recorded. Procedures Surgical History Date Name Laterality Status Provider Name and Address Organization Details Recorded Time complete repair of rotator cuff completed [email or web address] 07/03/2024 12:06:07 procedure on nerve completed [email or web address] 07/03/2024 12:06:55 total knee replacement completed [email or web address] 07/03/2024 12:07:10 Appendectomy completed [employer] 07/03/2024 12:07:17 total replacement of hip completed [employer] 07/03/2024 12:07:28 Imaging Results None recorded. Procedure [...] lisinopril 20 mg-hydrochl orothiazide 12.5 mg tablet TAKE 1 TABLET BY MOUTH EVERY DAY active Not Available Not Available No t Available glipizide ER 10 mg tablet, extended release 24 hr Take 1 tablet every day by oral route. 04/18 completed Not Available Not Available Not Available allopurinol 100 mg tablet TAKE 1 TABLET BY MOUTH EVERY DAY active Not Available Not Available No t [...] completed Not Available Not Available Not Available simethicone 80 mg chewable tablet take 2 tablets by mouth 3 to 4 times per day as needed for abdominal distentio n active Not Available Not Available No t Available oxycodone 5 mg tablet 07/03 completed Not Available Not Available Not Available solifenacin 10 mg tablet Take 1 tablet every day by oral route as directed for 30 days. active Not Available Not Available No t Available fesoterodin e ER 8 mg tablet,exte nded release 24 hr TAKE ONE TABLET BY MOUTH EVERY DAY active Not Available Not Available No t Available Jardiance 10 mg tablet Take 1 tablet every day by oral route. 2024 active Not Available Not Available Not Avai lable Gemtesa 75 mg tablet Take 1 tablet every day by oral route. 05/30 completed Not Available Not Available Not Available aspirin 81 mg capsule Take 1 capsule every day by oral route as directed. active Not Available Not Available No t Available Vitals Date Recorded Body height Body mass index (BMI) Body weight Heart rate Oxygen saturation Oxygen saturation in Arterial blood by Pulse oximetry Systolic And Diastolic Provider Name and Address Organization Details Last Updated DateTime 5 175.26 cm 31.5 kg/m2 00821.1 7 g 90 /min 96 % 96 % 133/87 mm[Hg] [facility] 5 08:59:45 Date Recorded Body height Body mass index (BMI) Body weight Heart rate Oxygen saturation Oxygen saturation in Arterial blood by Pulse oximetry Systolic And Diastolic Provider Name and Address Organization Details Last Updated DateTime 5 175.26 cm 31.2 kg/m2 70130.0 9 g 92 /min 98 % 98 % 139/76 mm[Hg] [employer] 5 09:58:30 Date Recorded Body height Body mass index (BMI) Body weight Heart rate Oxygen saturation Oxygen saturation in Arterial blood by Pulse oximetry Systolic And Diastolic Provider Name and Address Organization Details Last Updated DateTime 5 175.26 cm 31.2 kg/m2 01911.0 9 g 70 /min 98 % 98 % 139/79 mm[Hg] [facility] 5 09:42:09 Date Recorded Body height Body mass index (BMI) Body weight Heart rate Oxygen saturation Oxygen saturation in Arterial blood by Pulse oximetry Systolic And Diastolic Provider Name and Address Organization Details Last Updated DateTime 5 175.26 cm 30.6 kg/m2 19139.3 2 g 106 /min 94 % 94 % 124/77 mm[Hg] [facility] 5 13:15:48 Date Recorded Body height Body mass index (BMI) Body weight Heart rate Oxygen saturation Oxygen saturation in Arterial blood by Pulse oximetry Systolic And Diastolic Provider Name and Address Organization Details Last Updated DateTime 5 175.26 cm 29.8 kg/m2 79519.8 7 g 82 /min 96 % 96 % 136/78 mm[Hg] Carolynsteve Ce[employer]. 09:04:58 Social History Question Answer Notes LastModified by Organizat ion Details LastModified Time Tobacco Smoking Status Never Smoker Griselda yeung [employer] 07/03/2024 12:05:06 Is Your Home Air Conditioned? [...] Date Of Your Most Recent Tobacco Screening? 05/30/2025 [email or web address] Information not available 05/30/2025 What Is Your Relationship Status? Information not available 07/03/2024 Do You Use Your Seat Belt Or Car Seat Routinely? Yes Information not available 07/03/2024 Are You Sexually Active? No [email or web address] Information not available 10/31/2024 Do You Have Smoke And Carbon Monoxide Detectors In Your Home? Yes Information not available 07/03/2024 Are You Passively Exposed To Smoke? No Information no t available 07/03/2024 Are There Any Smokers In Your House? No Information not available 07/03/2024 Do You Participate In Social Media? Yes [email or web address] Information not available 10/31/2024 Has Tobacco Cessation Counseling Been Provided? No Information not available 07/03/2024 Have You Recently Traveled Abroad? No Information not available 07/03/2024 Do You Have Difficulty Walking Or Climbing Stairs? Yes Information not available 07/03/2024 Are You Currently In School? No [email or web address] Information not available 10/31/2024 Do You Have Any Dietary Restrictions? Yes [email or web address] Information not available 10/31/2024 Sex: Male Functional Status Question Answer Note LastModified by Organizat ion Details LastModified Time Do you use any illicit or recreational drugs? No Information not available 07/03/2024 Do you or have you ever used any other forms of tobacco or nicotine? No [email or web address] Information not available 10/31/2024 What is your level of alcohol consumption? None Information not available 07/03/2024 Are you currently employed? No Information not available 07/03/2024 Do you have transportation difficulties? No [email or web address] Information not available 10/31/2024 Are you able to walk? [email or web address] Information not available 07/03/2024 Do you have difficulty doing errands alone? No Information not available 07/03/2024 Are you able to care for yourself independently? Yes Information not available 07/03/2024 Do you have difficulty dressing, bathing, grooming, or toileting? No Information not available 07/03/2024 Mental Status Question Answer Note LastModified by Organizat ion Details LastModified Time Do you feel stressed (tense, restless, nervous, or anxious, or unable to sleep at night)? [id number] Information not available 10/31/2024 Do you have difficulty concentrating, remembering or making decisions? No Information no t available 07/03/2024 Family History Nothing Reported. Medical History Condition Response Hospitalizations N Diabetes Y Gout Y Emergency room visit since last appointm ent. Y Hypertension Y Immunizations Vaccine Type Date Status Note Provider Nam e and Address Organization Details Recorded Time Influenza, high-dose, trivalent, PF 4 completed Samantha Vallecillo, [employer] [address] [place], [address], [employer] 11/02/2024 09:27:35 zoster recombinant 5 completed Samantha Vallecillo, BONI [address] [place], [address], [employer] 03/05/2025 13:28:44 Influenza, adjuvanted, trivalent, PF 7 completed Griselda Flasher null, [employer] 07/03/2024 11:45:29 Influenza, MDCK, quadrivalent, PF 8 completed Griselda Flasher null, [employer] 07/03/2024 11:45:29 Influenza, high-dose, quadrivalent, PF 0 completed Griselda Flasher null, [employer] 07/03/2024 11:45:30 Influenza, high-dose, quadrivalent, PF 1 completed Griselda Flasher null, [employer] 07/03/2024 11:45:30 Influenza, high-dose, quadrivalent, PF 2 completed Griselda Flasher null, [employer] 07/03/2024 11:45:30 Influenza, high-dose, quadrivalent, PF 3 completed Griselda Flasher null, [employer] 07/03/2024 11:45:30 COVID-19, mRNA, LNP-S, PF, 100 mcg/0.5mL dose or 50 mcg/0.25mL dose 1 completed Griselda Flasher null, [employer] 07/03/2024 11:45:30 COVID-19, mRNA, LNP-S, PF, 100 mcg/0.5mL dose or 50 mcg/0.25mL dose 1 [facility] 07/03/2024 11:45:30 Pneumococcal conjugate PCV 13 8 completed [facility] 07/03/2024 11:45:30 Past Encounters Encounter ID Performer Location Encounter Start Date Encounter Closed Date Diagnosis/Indication Diagnosis SNOMED-CT Code Diagnosis ICD10 Code Diagnosis Note [id number] Samantha Vallecillo NP [place] [address] 07/03/2024 11:33:53 07/03/2024 12:37:25 Infection of toe 130804533 L08.9 Onychomyco sis of toenails 078856153 B35.1 [id number] Samantha Vallecillo NP [place] [address] 10/31/2024 10:57:05 10/31/2024 13:26:50 Type 2 diabetes mellitus without complication 904214413 E11.9 Body mass index 30+ - obesity 766700191 Z68.31 Hypertensive disorder 38 313719 I10 Chronic go uty arthritis 13148605 M1A.00X0 Gastroesop hageal reflux disease without esophagitis 277245918 K21.9 Screening for cardiovascular system disease 735535312 Z13.6 Active or passive immunization 439820543 Z23 [id number] Samantha Vallecillo NP [address] 0 01/30/2025 10:50:59 01/30/2025 12:11:12 Hyperlipidemia 49544897 E78.5 Type 2 ekaterina betes mellitus without complication 976026421 E11.9 Hypertensive disorder 38 325785 I10 Adult heal th examination 561851651 Z00.00 Adjustment disorder with depressed mood 50029383 F43.21 Body mass index 30+ - obesity 076805619 Z68.31 [id number] Samantha Vallecillo NP [address] 0 02/26/2025 08:39:43 02/26/2025 09:34:34 Hypertensive disorder 98239538 I10 Type 2 ekaterina betes mellitus without complication 513131978 E11.9 Hyperlipidemia 66598068 E78.5 Hepatitis C screening 41 8431530 Z11.59 Screening for malignant neoplasm of prostate 363596554 Z12.5 Active or passive immunization 830972875 Z23 [id number] Samantha Vallecillo, BONI [place] [address] 03/21/2025 09:21:29 03/21/2025 10:43:45 Type 2 diabetes mellitus 59581049 E11.22 N18.32 Hyperlipidemia 41818459 E78.5 Hypertensive disorder 38 806099 I10 [id number] Samantha Vallecillo, BONI [place] [address] 04/18/2025 09:22:01 04/18/2025 10:38:04 Type 2 diabetes mellitus 74558046 E11.22 N18.32 Dizziness 705456125 R42 Hyperlipidemia 06174212 E78.5 Chronic ki dney disease 161365289 N18.9 [id number] Samantha Vallecillo, BONI [place] [address] 05/16/2025 12:32:57 05/16/2025 14:23:00 Type 2 diabetes mellitus 74684813 E11.22 N18.32 Chronic low back pain 27 8216749 M54.42 G89.29 Urinary incontinence 165 638399 N39.324 [id number] Samantha Vallecillo, [place] [address] 05/30/2025 08:30:23 05/30/2025 09:42:32 Chronic kidney disease 965162700 N18.9 Chronic go uty arthritis 54485362 M1A.00X0 Hyperlipidemia 03581076 E78.5 Hypertensive disorder 38 102532 I10 Type 2 ekaterina betes mellitus 00934291 E11.22 N18.32 Health Concerns Section Related Observation LastModified by Organization Detai ls LastModified Time None Recorded Concern Status LastModified by Organization Details LastModified Time None Recorded Advance Directives Directive None Recorded Payers Insurance Date Sequence Insurance Name Policy Number Policy Muhammad Covered Member ID Muhammad Member ID Guarantor Name 05/30/2025 [place] [employer] - [place]HC Addison Adamee [id number] Addison WuKee 05/30/2025 1 [place] Addison Peguero [id number] Addison WuKee 05/09/2025 1 [place] [employer] - [place]HC Addison Peguero [id number] Addison Adamee 06/15/2025 2 [employer] (MEDICARE SUPPLEMENT) Addison Adamee [id number] Addison Adamee 05/08/2025 SLIDING FEE SCHEDULE - DISCOUNT Addison Adamee Notes Date Note Type Note Provider Name and Address Organization Details Recorded Time 02/26/2025 text/html Pt. presents for follow up.Colonoscopy 06/09/24 per Reema's last visit note. Previous PCP.Diabetic foot and eye exams to be scheduled. He sees podiatry for foot exam. [facility] Pod[facility] notes - goes regularlyHis is going to the custodial. This has alleviated some of his stress.He continues to have some flank pain but it has improved. Samantha Vallecillo, BONI [address] [place] [address], [address], [employer] 03/05/2025 13:32:46 03/21/2025 text/html Patient presents for [...] had a fever or chills. Carolyn yeung, [employer] 03/22/2025 12:05:49 04/18/2025 text/html Patient presents for [...] well, still working on getting her into custodial. Samantha Vallecillo NP [address] [place], [address], [employer] 04/21/2025 09:44:42 05/16/2025 text/html Patient presents for follow up on diabetes. Jardiance started in place of glipizide. He states he is not having dizziness anymore and is tolerating jardiance without side effects or issues.He does want to discuss his incontinence. He is having incontinence and lack of sensation that he needs to urinate since he had the kidney stone surgery a few months ago. Urology has sent him medications but they are expensive and do not work. He states urology says nothing is wrong. He also admits he has been a little more confused and just does not feel right. Samantha Vallecillo NP [address] [place], [address], [employer] 05/16/2025 19:21:49 05/30/2025 text/html Patient presents as walk-in for follow up after ER visit. He went to ER on 05/23/2025. States that he had some abdominal pain and had to go to ER. States that he was diagnosed with too much gas. States that he has made dietary changes and that has helped with his abdominal discomfort.He was also seen at [facility] on 05/16 r/t back pain.He sometimes has difficulty swallowing with really dry foods.Follows up with urology on 08/28/2025.He states he is doing much better overall.He is tolerating his jardiance without issue. Samantha Vallecillo NP [address] [place], [address], [employer] 06/01/2025 16:37:12
--- OUTSIDE RECORDS SUMMARY | 2025-06-15 12:52 | XMS_ITS | Data Portability ---
Author Organization MEHUL NORY Curran [place] [facility] Address [address] [place] [address] Care Team Providers Care Eyelet Cutter Name Role Phone MAKEDA ROBERTSE Primary Care Provider [phone] CANELO LEWIS Primary Care Provider Assessment Encounter [...] prepped and draped in normal fashion. A #22-Kyrgyz cystoscopy sheath was introduced. The urethra was [...] and stent removal in the near future. Not available 02/06/2025 13:05:34 03/27/2025 03/27/2025 - [...] solifenacin, with dizziness as a side effect. [email or web address] Not available 05/06/2025 21:22:37 Plan of Treatment Reminders Order Date Submit Date Provider Last Modified By Organization Details Last Modified Time Details Appointments RECHECK 2024 01:30P Ken WELLS MD Not available Not available Not available Lab urinalysi s panel, auto 2024 025 [email or web address] 4 [facility], [address], [address], [place], [address], 05/05/2025 16:44:04 urinalysi s panel, auto 2024 025 [email or web address] 4 [facility] [place] [facility], [address] [place] [address] [address], [place], [address], 03/27/2025 14:13:13 urinalysi s panel, auto 2024 025 [facility], [address], [address], [place], [address], 03/06/2025 10:37:09 urinalysi s panel, auto 2024 025 4 [facility], [address], [address], [place], [address], 02/09/2025 13:44:59 Referral None recorded. Procedures None recorded. Surgeries cystoscop y, with ureterosc opy, with lithotrip sy, with insertion of ureteral stent (SURG) 2024 025 [email or web address], [address], [address], [place], [address], 02/20/2025 16:26:09 Imaging None recorded. Medication Orders fesoterod ine ER 8 mg tablet,ex tended release 24 hr 2024 025 [place] [facility], [facility] [place], [address], 05/05/2025 16:44:27 tamsulosi n 0.4 mg capsule 2024 025 [place] [facility], [address] [place], [address], 03/27/2025 14:14:26 solifenac in 10 mg tablet 2024 025 [place] [facility], [address] [place], [address], 05/05/2025 16:44:25 tamsulosi n 0.4 mg capsule 2024 025 [email or web address] 4 [facility], [address] [place], [address], 01/29/2025 13:17:40 Patient TargetsNo targets recorded. Patient Instructions Encounter Date Encounter Id Patient Instructions Last Modified By Organization Details Last Modified Time 01/28/2025 [id number] - Take tamsulosi n twice daily as prescribed. - Monitor symptoms, especially urinary changes. - Use pain medication as needed. - Follow up in one week or sooner if symptoms worsen. - Contact office if experiencing severe pain or new symptoms. [email or web address] Not available 01/28/2025 10:13:19 03/27/2025 [id number] - Stop taking Gemtesa. - Increase tamsulosin [...] night. [email or web address] Not available 03/27/2025 14:15:11 05/05/2025 [id number] - Continue takin g tamsulosin as prescribed. [...] Unknown Analyte Clean Catch Not Available [facility] With [address], [place], [address], 01/28/2025 14:01:50 01/29/20 25 01/28/2025 urina lysis panel , auto Unknown Analyte Yellow Not Available [facility], [facility] With [address], [place], [address], 01/28/2025 14:01:50 01/29/20 25 01/28/2025 urina lysis panel , auto Unknown Analyte Clear Not Available [facility] [address], [place], [address], 01/28/2025 14:01:50 01/29/20 25 01/28/2025 urina lysis panel , auto Unknown Analyte 1.015 Not Available [facility] [address], [place], [address], 01/28/2025 14:01:50 01/29/2001/28/2025 urina lysis panel , auto Unknown Analyte 1.003 - 1.030 Not Available [facility] [address], [place], [address], 01/28/2025 14:01:50 01/29/20 25 01/28/2025 urina lysis panel , auto Unknown Analyte 5.0 Not Available [facility] [address], [place], [address], 01/28/2025 14:01:50 01/29/20 25 01/28/2025 urina lysis panel , auto Unknown Analyte 5.0 - 8.0 Not Available [facility] [address], [place], [address], 01/28/2025 14:01:50 01/29/20 25 01/28/2025 urina lysis panel , auto Unknown Analyte Negati ve Not Available [facility] [address], [place], [address], 01/28/2025 14:01:50 01/29/20 25 01/28/2025 urina lysis panel , auto Unknown Analyte Negati ve Not Available [facility] [address], [place], [address], 01/28/2025 14:01:50 01/29/20 25 01/28/2025 urina lysis panel , auto Unknown Analyte Negati ve Not Available [facility] [address], [place], [address], 01/28/2025 14:01:50 01/29/20 25 01/28/2025 urina lysis panel , auto Unknown Analyte Negati ve Not Available [facility] [address], [place], [address], 01/28/2025 14:01:50 01/29/20 25 01/28/2025 urina lysis panel , auto Unknown Analyte Negati ve Not Available [facility] [address], [place], [address], 01/28/2025 14:01:50 01/29/20 25 01/28/2025 urina lysis panel , auto Unknown Analyte Negati ve Not Available [facility] [address], [place], [address], 01/28/2025 14:01:50 01/29/20 25 01/28/2025 urina lysis panel , auto Unknown Analyte Normal Not Available [facility] [address], [place], [address], 01/28/2025 14:01:50 01/29/20 25 01/28/2025 urina lysis panel , auto Unknown Analyte Normal Not Available [facility] [address], [place], [address], 01/28/2025 14:01:50 01/29/20 25 01/28/2025 urina lysis panel , auto Unknown Analyte Negati ve Not Available [facility] [address], [place], [address], 01/28/2025 14:01:50 01/29/20 25 01/28/2025 urina lysis panel , auto Unknown Analyte Negati ve Not Available [facility] [address], [place], [address], 01/28/2025 14:01:50 01/29/20 25 01/28/2025 urina lysis panel , auto Unknown Analyte Normal Not Available [facility] [address], [place], [address], 01/28/2025 14:01:50 01/29/20 25 01/28/2025 urina lysis panel , auto Unknown Analyte Normal Not Available [facility] [address], [place], [address], 01/28/2025 14:01:50 01/29/20 25 01/28/2025 urina lysis panel , auto Unknown Analyte Negati ve Not Available [facility] [address], [place], [address], 01/28/2025 14:01:50 01/29/20 25 01/28/2025 urina lysis panel , auto Unknown Analyte Negati ve Not Available [facility] [address], [place], [address], 01/28/2025 14:01:50 01/29/20 25 01/28/2025 urina lysis panel , auto Unknown Analyte Negati ve Not Available [facility] [address] [facility] [address], [place], [address], 01/28/2025 14:01:50 01/29/20 25 01/28/2025 urina lysis panel , auto Unknown Analyte Negati ve Not Available [facility] [address] [facility] [address], [place], [address], 01/28/2025 14:01:50 02/01/20 25 01/31/2025 urina lysis panel , auto Unknown Analyte Clean Catch Not Available [facility] Surgery Schedule [address] [place], [address], 01/31/2025 13:46:54 02/01/20 25 01/31/2025 urina lysis panel , auto Unknown Analyte Yellow Not Available [facility] Surgery Schedule [address] [place], [address], 01/31/2025 13:46:54 02/01/20 25 01/31/2025 urina lysis panel , auto Unknown Analyte Clear Not Available [facility] Surgery Schedule [address] [place], [address], 01/31/2025 13:46:54 02/01/20 25 01/31/2025 urina lysis panel , auto Unknown Analyte 1.015 Not Available [facility] Surgery Schedule [address] [place], [address], 01/31/2025 13:46:54 02/01/20 25 01/31/2025 urina lysis panel , auto Unknown Analyte 1.003 - 1.030 Not Available [facility] Surgery Schedule [address] [place], [address], 01/31/2025 13:46:54 02/01/20 25 01/31/2025 urina lysis panel , auto Unknown Analyte 5.0 Not Available [facility] Surgery Schedule [address] [place], [address], 01/31/2025 13:46:54 02/01/20 25 01/31/2025 urina lysis panel , auto Unknown Analyte 5.0 - 8.0 Not Available [facility] Surgery Schedule [address] [place], [address], 01/31/2025 13:46:54 02/01/20 25 01/31/2025 urina lysis panel , auto Unknown Analyte Negati ve Not Available [facility] Surgery Schedule [address] [place], [address], 01/31/2025 13:46:54 02/01/20 25 01/31/2025 urina lysis panel , auto Unknown Analyte Negati ve Not Available [facility] Surgery Schedule [address] [place], [address], 01/31/2025 13:46:54 02/01/20 25 01/31/2025 urina lysis panel , auto Unknown Analyte Negati ve Not Available [facility] Surgery Schedule [address] [place], [address], 01/31/2025 13:46:54 02/01/20 25 01/31/2025 urina lysis panel , auto Unknown Analyte Negati ve Not Available [facility] Surgery Schedule [address] [place], [address], 01/31/2025 13:46:54 02/01/20 25 01/31/2025 urina lysis panel , auto Unknown Analyte Trace Not Available [facility] Surgery Schedule [address] [place], [address], 01/31/2025 13:46:54 02/01/20 25 01/31/2025 urina lysis panel , auto Unknown Analyte Negati ve Not Available [facility] Surgery Schedule [facility] [place], [address], 01/31/2025 13:46:54 02/01/20 25 01/31/2025 urina lysis panel , auto Unknown Analyte Normal Not Available [facility] Surgery Schedule [address] [place], [address], 01/31/2025 13:46:54 02/01/20 25 01/31/2025 urina lysis panel , auto Unknown Analyte Normal Not Available [facility] Surgery Schedule [address] [place] [address], [address], 01/31/2025 13:46:54 02/01/20 25 01/31/2025 urina lysis panel , auto Unknown Analyte Negati ve Not Available [facility] Surgery Schedule [address] [place] [address], [address], 01/31/2025 13:46:54 02/01/20 25 01/31/2025 urina lysis panel , auto Unknown Analyte Negati ve Not Available [facility] Surgery Schedule [address] [place] [address], [address], 01/31/2025 13:46:54 02/01/20 25 01/31/2025 urina lysis panel , auto Unknown Analyte Normal Not Available [facility] Surgery Schedule [address] [place] [address], [address], 01/31/2025 13:46:54 02/01/20 25 01/31/2025 urina lysis panel , auto Unknown Analyte Normal Not Available [facility] Surgery Schedule [address] [place] [address], [address], 01/31/2025 13:46:54 02/01/20 25 01/31/2025 urina lysis panel , auto Unknown Analyte Negati ve Not Available [facility] Surgery Schedule [address] [place] [address], [address], 01/31/2025 13:46:54 02/01/20 25 01/31/2025 urina lysis panel , auto Unknown Analyte Negati ve Not Available [facility] Surgery Schedule [address] [place], [address], 01/31/2025 13:46:54 02/01/20 25 01/31/2025 urina lysis panel , auto Unknown Analyte Negati ve Not Available [facility] Surgery Schedule [address] [place], [address], 01/31/2025 13:46:54 02/01/20 25 01/31/2025 urina lysis panel , auto Unknown Analyte Negati ve Not Available [facility] Surgery Schedule [address] [place], [address], 01/31/2025 13:46:54 03/05/20 25 03/05/2025 urina lysis panel , auto Unknown Analyte Clean Catch Not Available [facility] [address], [place], [address], 03/05/2025 15:29:24 03/05/20 25 03/05/2025 urina lysis panel , auto Unknown Analyte Yellow Not Available [facility], [facility] [address], [place], [address], 03/05/2025 15:29:24 03/05/20 25 03/05/2025 urina lysis panel , auto Unknown Analyte Clear Not Available [facility], [facility] [address], [place], [address], 03/05/2025 15:29:24 03/05/20 25 03/05/2025 urina lysis panel , auto Unknown Analyte 1.025 Not Available [facility], [facility] [address], [place], [address], 03/05/2025 15:29:24 03/05/20 25 03/05/2025 urina lysis panel , auto Unknown Analyte 1.003 - 1.030 Not Available [facility] [address], [place], [address], 03/05/2025 15:29:24 03/05/20 25 03/05/2025 urina lysis panel , auto Unknown Analyte 5.0 Not Available [facility] [address], [place], [address], 03/05/2025 15:29:24 03/05/20 25 03/05/2025 urina lysis panel , auto Unknown Analyte 5.0 - 8.0 Not Available [facility] [address], [place], [address], 03/05/2025 15:29:24 03/05/20 25 03/05/2025 urina lysis panel , auto Unknown Analyte Negati ve Not Available [facility] [address], [place], [address], 03/05/2025 15:29:24 03/05/20 25 03/05/2025 urina lysis panel , auto Unknown Analyte Negati ve Not Available [facility] [address], [place], [address], 03/05/2025 15:29:24 03/05/20 25 03/05/2025 urina lysis panel , auto Unknown Analyte Negati ve Not Available [facility] [address], [place], [address], 03/05/2025 15:29:24 03/05/20 25 03/05/2025 urina lysis panel , auto Unknown Analyte Negati ve Not Available [facility] [address], [place], [address], 03/05/2025 15:29:24 03/05/20 25 03/05/2025 urina lysis panel , auto Unknown Analyte Trace Not Available [facility] [address], [place], [address], 03/05/2025 15:29:24 03/05/20 25 03/05/2025 urina lysis panel , auto Unknown Analyte Negati ve Not Available [facility] [address], [place], [address], 03/05/2025 15:29:24 03/05/20 25 03/05/2025 urina lysis panel , auto Unknown Analyte Normal Not Available [facility] [address], [place], [address], 03/05/2025 15:29:24 03/05/20 25 03/05/2025 urina lysis panel , auto Unknown Analyte Normal Not Available [facility] [address], [place], [address], 03/05/2025 15:29:24 03/05/20 25 03/05/2025 urina lysis panel , auto Unknown Analyte Negati ve Not Available [facility] [address], [place], [address], 03/05/2025 15:29:24 03/05/20 25 03/05/2025 urina lysis panel , auto Unknown Analyte Negati ve Not Available [facility] [address], [place], [address], 03/05/2025 15:29:24 03/05/20 25 03/05/2025 urina lysis panel , auto Unknown Analyte Normal Not Available [facility] [address], [place], [address], 03/05/2025 15:29:24 03/05/20 25 03/05/2025 urina lysis panel , auto Unknown Analyte Normal Not Available [facility] [address], [place], [address], 03/05/2025 15:29:24 03/05/20 25 03/05/2025 urina lysis panel , auto Unknown Analyte 1 mg/dL Not Available [facility] [address], [place], [address], 03/05/2025 15:29:24 03/05/20 25 03/05/2025 urina lysis panel , auto Unknown Analyte Negati ve Not Available [facility] [address], [place], [address], 03/05/2025 15:29:24 03/05/20 25 03/05/2025 urina lysis panel , auto Unknown Analyte Negati ve Not Available [facility] [address], [place], [address], 03/05/2025 15:29:24 03/05/20 25 03/05/2025 urina lysis panel , auto Unknown Analyte Negati ve Not Available [facility] [address], [place], [address], 03/05/2025 15:29:24 03/27/20 25 03/27/2025 urina lysis panel , auto Unknown Analyte Clean Catch Not Available [facility] [place] [facility] [address], [place], [address], 03/27/2025 14:04:44 03/27/20 25 03/27/2025 urina lysis panel , auto Unknown Analyte Yellow Not Available [facility] With [address] [place], [address], 03/27/2025 14:04:44 03/27/20 25 03/27/2025 urina lysis panel , auto Unknown Analyte Clear Not Available [facility] With [address], [place], [address], 03/27/2025 14:04:44 03/27/20 25 03/27/2025 urina lysis panel , auto Unknown Analyte 1.020 Not Available [facility] With [address], [place], [address], 03/27/2025 14:04:44 03/27/20 25 03/27/2025 urina lysis panel , auto Unknown Analyte 1.003 - 1.030 Not Available [facility] [address] [place], [address], 03/27/2025 14:04:44 03/27/20 25 03/27/2025 urina lysis panel , auto Unknown Analyte 5.0 Not Available [facility] With [address], [place], [address], 03/27/2025 14:04:44 03/27/20 25 03/27/2025 urina lysis panel , auto Unknown Analyte 5.0 - 8.0 Not Available [facility] Extended Services With [address] [place], [address], 03/27/2025 14:04:44 03/27/20 25 03/27/2025 urina lysis panel , auto Unknown Analyte Negati ve Not Available [facility] Extended Services With [address] [place], [address], 03/27/2025 14:04:44 03/27/20 25 03/27/2025 urina lysis panel , auto Unknown Analyte Negati ve Not Available [facility] Services With [address] [place], [address], 03/27/2025 14:04:44 03/27/20 25 03/27/2025 urina lysis panel , auto Unknown Analyte Negati ve Not Available [facility] Services With [address] [place], [address], 03/27/2025 14:04:44 03/27/20 25 03/27/2025 urina lysis panel , auto Unknown Analyte Negati ve Not Available [facility] Services With [address] [place], [address], 03/27/2025 14:04:44 03/27/20 25 03/27/2025 urina lysis panel , auto Unknown Analyte Negati ve Not Available [facility] Services With [address] [place], [address], 03/27/2025 14:04:44 03/27/20 25 03/27/2025 urina lysis panel , auto Unknown Analyte Negati ve Not Available [facility] Services With [address], [place], [address], 03/27/2025 14:04:44 03/27/20 25 03/27/2025 urina lysis panel , auto Unknown Analyte Normal Not Available [facility] Services With [address] [place], [address], 03/27/2025 14:04:44 03/27/20 25 03/27/2025 urina lysis panel , auto Unknown Analyte Normal Not Available [facility] Extended Services With [address] [place], [address], 03/27/2025 14:04:44 03/27/20 25 03/27/2025 urina lysis panel , auto Unknown Analyte Negati ve Not Available [facility] Extended Services With [address], [place], [address], 03/27/2025 14:04:44 03/27/20 25 03/27/2025 urina lysis panel , auto Unknown Analyte Negati ve Not Available [facility] Extended Services With [address] [place], [address], 03/27/2025 14:04:44 03/27/20 25 03/27/2025 urina lysis panel , auto Unknown Analyte Normal Not Available [facility] Extended Services With [address] [place], [address], 03/27/2025 14:04:44 03/27/20 25 03/27/2025 urina lysis panel , auto Unknown Analyte Normal Not Available [facility] With [address], [place], [address], 03/27/2025 14:04:44 03/27/20 25 03/27/2025 urina lysis panel , auto Unknown Analyte Negati ve Not Available [facility] With [address], [place], [address], 03/27/2025 14:04:44 03/27/20 25 03/27/2025 urina lysis panel , auto Unknown Analyte Negati ve Not Available [facility] With [address], [place], [address], 03/27/2025 14:04:44 03/27/20 25 03/27/2025 urina lysis panel , auto Unknown Analyte Negati ve Not Available [facility] With [address] [place], [place], [address], 03/27/2025 14:04:44 03/27/20 25 03/27/2025 urina lysis panel , auto Unknown Analyte Negati ve Not Available [facility] With [address] [place], [place], [address], 03/27/2025 14:04:44 05/05/20 25 05/05/2025 urina lysis panel , auto Unknown Analyte Clean Catch Not Available [facility] [address], [place], [address], 05/05/2025 16:22:07 05/05/20 25 05/05/2025 urina lysis panel , auto Unknown Analyte Yellow Not Available [facility] [address], [place], [address], 05/05/2025 16:22:07 05/05/20 25 05/05/2025 urina lysis panel , auto Unknown Analyte Clear Not Available [facility], [facility] [address], [place], [address], 05/05/2025 16:22:07 05/05/20 25 05/05/2025 urina lysis panel , auto Unknown Analyte 1.015 Not Available [facility] [address], [place], [address], 05/05/2025 16:22:07 05/05/20 25 05/05/2025 urina lysis panel , auto Unknown Analyte 1.003 - 1.030 Not Available [facility] [address], [place], [address], 05/05/2025 16:22:07 05/05/20 25 05/05/2025 urina lysis panel , auto Unknown Analyte 5.0 Not Available [facility] [address], [place], [address], 05/05/2025 16:22:07 05/05/20 25 05/05/2025 urina lysis panel , auto Unknown Analyte 5.0 - 8.0 Not Available [facility] [address], [place], [address], 05/05/2025 16:22:07 05/05/20 25 05/05/2025 urina lysis panel , auto Unknown Analyte Negati ve Not Available [facility] [address], [place], [address], 05/05/2025 16:22:07 05/05/20 25 05/05/2025 urina lysis panel , auto Unknown Analyte Negati ve Not Available [facility] [address], [place], [address], 05/05/2025 16:22:07 05/05/20 25 05/05/2025 urina lysis panel , auto Unknown Analyte Negati ve Not Available [facility] [address], [place], [address], 05/05/2025 16:22:07 05/05/20 25 05/05/2025 urina lysis panel , auto Unknown Analyte Negati ve Not Available [facility] [address], [place], [address], 05/05/2025 16:22:07 05/05/20 25 05/05/2025 urina lysis panel , auto Unknown Analyte Negati ve Not Available [facility] [address], [place], [address], 05/05/2025 16:22:07 05/05/20 25 05/05/2025 urina lysis panel , auto Unknown Analyte Negati ve Not Available [facility] [address], [place], [address], 05/05/2025 16:22:07 05/05/20 25 05/05/2025 urina lysis panel , auto Unknown Analyte Normal Not Available [facility] [address], [place], [address], 05/05/2025 16:22:07 05/05/20 25 05/05/2025 urina lysis panel , auto Unknown Analyte Normal Not Available [facility] [address], [place], [address], 05/05/2025 16:22:07 05/05/20 25 05/05/2025 urina lysis panel , auto Unknown Analyte Negati ve Not Available [facility] [address], [place], [address], 05/05/2025 16:22:07 05/05/20 25 05/05/2025 urina lysis panel , auto Unknown Analyte Negati ve Not Available [facility] [address], [place], [address], 05/05/2025 16:22:07 05/05/20 25 05/05/2025 urina lysis panel , auto Unknown Analyte Normal Not Available [facility] [address], [place], [address], 05/05/2025 16:22:07 05/05/20 25 05/05/2025 urina lysis panel , auto Unknown Analyte Normal Not Available [facility] [address], [place], [address], 05/05/2025 16:22:07 05/05/20 25 05/05/2025 urina lysis panel , auto Unknown Analyte Negati ve Not Available [facility] [address], [place], [address], 05/05/2025 16:22:07 05/05/20 25 05/05/2025 urina lysis panel , auto Unknown Analyte Negati ve Not Available [facility] [address], [place], [address], 05/05/2025 16:22:07 05/05/20 25 05/05/2025 urina lysis panel , auto Unknown Analyte Negati ve Not Available [facility] [address] [facility] [address], [place], [address], 05/05/2025 16:22:07 05/05/20 25 05/05/2025 urina lysis panel , auto Unknown Analyte Negati ve Not Available [facility] [address] [facility] [address], [place], [address], 05/05/2025 16:22:07 01/29/20 25 01/28/2025 XR, abdom en, 1 view No observ ation record ed. [email or web address] Not Available 01/19 10:51:08 05/07/20 25 05/05/2025 XR, abdom en, 1 view No observ ation record ed. [facility] [address] [facility] [address], [place], [address], 05/08/2025 15:48:32 Result Notes None recorded. Problems Name Problem SNOMED Code Status Onset Date Resolution Date Notes Provider Name and Address Organization Details Recorded Time Urolithiasis 02919516 Active 018 Dane Villaltat [facility] 8 13:42:46 Problem Notes None recorded. Procedures Surgical History Date Name Laterality Status Provider Name and Address Organization Details Recorded Time 05/05/20 25 Post Void Residual; Ultrasound completed Avelino Villarreal [facility] 05/05/2025 16:47:03 01/22/20 25 Post Void Residual; Ultrasound completed Avelino Villarreal [facility] 01/21/2025 10:54:51 08/20/20 21 Unlisted px femur/knee completed [facility] 09/16/2021 12:54:24 [facility] 03/16/2017 16:31:38 Kidney Stones completed [facility] 03/16/2017 16:31:46 Knee arthroscopy/surg gilbert completed [facility] 06/11/2020 14:13:46 Imaging Results None recorded. Procedure [...] Updated DateTime 01/28/2025 175.26 cm 31.9 kg/m2 84624.95 g Olimpia Voss [facility] 01/28/2025 13:23:50 Date Recorded Body height Body mass index (BMI) Body weight Provider Name and Address Organization Details Last Updated DateTime 03/05/2025 175.26 cm 31.5 kg/m2 70368.17 g Avelino Villarreal [facility] 03/05/2025 15:33:56 Date Recorded Body height Body mass index (BMI) Body weight Provider Name and Address Organization Details Last Updated DateTime 03/27/2025 175.26 cm 31.9 kg/m2 98025.95 g Rica Huynh [facility] 03/27/2025 14:04:34 Date Recorded Body height Body mass index (BMI) Body weight Provider Name and Address Organization Details Last Updated DateTime 05/05/2025 175.26 cm 31.5 kg/m2 05953.17 g Avelino Villarreal [facility] 05/05/2025 16:46:20 Social History Question Answer Notes LastModified by Organizat ion Details LastModified Time Tobacco Smoking Status Never Smoker Dane Moore [facility] 03/16/2017 16:31:28 What Was The Date Of Your Most Recent Tobacco Screening? 05/05/2025 [email or web address] Information not available 05/05/2025 Sex: Unknown Functional [...] adjuvanted, trivalent, PF 7 completed Halie Marcanoong [facility] 05/12/2025 16:16:53 Influenza, MDCK, quadrivalent, PF 8 completed Halie Marcanoong [facility] 05/12/2025 16:16:53 zoster recombinant 5 completed Halie Valdivia [facility] 05/12/2025 16:16:53 Influenza, high-dose, quadrivalent, PF 0 completed Halie Marcanoong [facility] 05/12/2025 16:16:53 Influenza, high-dose, quadrivalent, PF 1 completed Halie Marcanoong [facility] 05/12/2025 16:16:53 Influenza, high-dose, quadrivalent, PF 2 completed Halie Marcanoong [facility] 05/12/2025 16:16:53 Influenza, high-dose, quadrivalent, PF 3 completed Halie Marcanoong [facility] 05/12/2025 16:16:53 COVID-19, mRNA, LNP-S, PF, 100 mcg/0.5mL dose or 50 mcg/0.25mL dose 1 completed Halie Valdivia [facility] 05/12/2025 16:16:53 COVID-19, mRNA, LNP-S, PF, 100 mcg/0.5mL dose or 50 mcg/0.25mL dose 1 completed Halie Valdivia [facility] 05/12/2025 16:16:53 Pneumococcal conjugate PCV 13 8 completed Halie Valdivia [facility] 05/12/2025 16:16:53 Influenza, high-dose, trivalent, PF 4 completed Halie Valdivia [facility] 05/12/2025 16:16:53 Past Encounters Encounter ID Performer Location Encounter Start Date Encounter Closed Date Diagnosis/Indication Diagnosis SNOMED-CT Code Diagnosis ICD10 Code Diagnosis Note [id number] CORINA WELLS MD [address] ,[place] [address] 8 03/16/2017 15:51:14 03/20/2017 15:22:54 Ureteric stone 45952480 N20.1 [id number] CORINA WELLS MD SURGERY SCHEDULE [address] [place] [address] 03/21/2017 12:57:34 03/21/2017 13:02:03 Ureteric stone 06994349 N20.1 [id number] CORINA WELLS MD [address],[place] [address] 03/23/2017 14:23:50 03/24/2017 11:40:21 Ureteric stone 53764553 N20.1 [id number] CORINA WELLS MD [place] [address] [address],[place] [address] 8 06/22/2017 14:23:24 07/13/2017 13:02:35 Kidney stone 07881633 N20.0 Impotence of organic origin 903345844 N52.9 Benign pro static hyperplasia with outflow obstruction 121603145 N40.1 [id number] CORINA WELLS MD [facility] [address],[place] [address] 01/04/2018 14:14:24 01/11/2018 17:57:48 Kidney stone 63832762 N20.0 Benign pro static hyperplasia with outflow obstruction 011068330 N40.1 [id number] CORINA WELLS MD [facility] [address],[place] [address] 07/05/2018 13:12:15 07/11/2018 17:29:14 Kidney stone 15339881 N20.0 [id number] CORINA WELLS MD [facility] [address],[place] [address] 01/10/2019 12:52:02 01/21/2019 09:50:52 Benign prostatic hyperplasia with outflow obstruction 585929675 N40.1 Kidney stone 35014202 N2 0.0 [id number] CORINA WELLS MD [facility] [address] [place] [address] 8 03/28/2019 13:25:50 04/10/2019 10:43:45 Balanitis 50289677 N48.1 [id number] CORINA WELLS MD SURGERY SCHEDULE [address] [place] [address] 04/23/2019 12:57:41 04/23/2019 14:14:26 Postoperative pain 259272608 G89.18 [id number] CORINA WELLS MD [facility] [address],[place] [address] 05/30/2019 14:14:20 06/10/2019 08:25:49 Phimosis 583650341 N47.1 Kidney stone 54404113 N2 0.0 [id number] CORINA WELLS MD [facility] [address],[place] [address] 06/11/2020 13:50:34 06/15/2020 07:52:45 Kidney stone 58221393 N20.0 [id number] CORINA WELLS MD [facility] [address],[place] [address] 06/24/2021 14:57:33 06/25/2021 17:04:03 Primary erectile dysfunction 642365597 N52.9 Kidney stone 36374652 N2 0.0 [id number] CORINA WELLS MD [facility] [address],[place] [address] 8 07/29/2021 13:48:44 07/30/2021 14:41:48 Ureteric stone 21282173 N20.1 Kidney stone 71097666 N2 0.0 Renal colic 4520573 N23 [id number] CORINA WELLS MD SURGERY SCHEDULE [address] [place] [address] 08/03/2021 14:28:30 08/03/2021 14:30:19 Ureteric stone 98326396 N20.1 [id number] CORINA WELLS MD [facility] [address],[place] [address] 8 09/16/2021 12:52:49 09/16/2021 13:12:02 Kidney stone 48928638 N20.0 Benign pro static hyperplasia with outflow obstruction 118654773 N40.1 [id number] CORINA WELLS MD [facility] [address],[place] [address] 8 03/24/2022 13:03:19 04/02/2022 15:41:22 Benign prostatic hyperplasia with outflow obstruction 057703900 N40.1 Kidney stone 03214188 N2 0.0 [id number] CORINA WELLS MD [facility] [address],[place] [address] 8 09/22/2022 13:16:17 09/29/2022 07:44:01 Benign prostatic hyperplasia with outflow obstruction 920688138 N40.1 Kidney stone 59511140 N2 0.0 [id number] CORINA WELLS MD [facility] [address],[place] [address] 8 03/30/2023 13:46:10 03/31/2023 08:49:04 Benign prostatic hyperplasia with outflow obstruction 079829230 N40.1 Kidney stone 08362054 N2 0.0 Primary er ectile dysfunction 750365159 N52.9 [id number] CORINA WELLS MD [facility] [address],[place] [address] 8 04/11/2024 14:13:38 04/11/2024 15:10:13 Primary erectile dysfunction 999851352 N52.9 Benign pro static hyperplasia with outflow obstruction 738243469 N40.1 [id number] CORINA WELLS MD [facility] [address] [place] [id number] 01/21/2025 10:29:11 01/21/2025 11:46:23 Benign prostatic hyperplasia with outflow obstruction 687019332 N40.1 Increase tamsulosin dose for symptom management . Continue monitoring for improvemen t. Consider surgery if symptoms persist. Kidney stone 81885194 N2 0.0 Plan for non-surgic al treatment to pass 3 mm stone. Pain management with analgesics . Surgery if stone does not pass naturally. [id number] CORINA WELLS MD [facility] [address] [place] [address] 01/28/2025 11:09:13 01/28/2025 16:23:38 Benign prostatic hyperplasia with outflow obstruction 688854013 N40.1 Kidney stone 81193266 N2 0.0 [id number] RAKAN EARL MD SURGERY SCHEDULE [address] [place] [address] 01/31/2025 13:00:00 01/31/2025 13:01:39 [id number] RAKAN EARL MD [facility] [address] [place] [id number] 03/05/2025 14:37:20 03/05/2025 16:21:58 Kidney stone 85752621 N20.0 Urge incon tinence of urine 32171012 N39.41 He will try the Gemtesa samples and follow-up with me in 1 month [id number] CORINA WELLS MD [facility] [address] [address] 03/27/2025 13:21:22 03/27/2025 14:19:49 Benign prostatic hyperplasia with outflow obstruction 395953219 N40.1 N13.8 - Continue increased tamsulosin therapy. Monitor voiding symptoms. Urinary incontinence 165 482950 R32 - Stop Gemtesa. Increase tamsulosin to two daily. Ultrasound planned for bladder evaluation . Assess for structural issues. Kidney stone 14646299 N2 0.0 - Follow-up post-ESWL. Evaluate interventi on outcome and check for recurring symptoms. [id number] CORINA WELLS MD [facility] [address] [place] [address] 05/05/2025 15:31:15 05/05/2025 16:49:56 Benign prostatic hyperplasia with outflow obstruction 116275365 N13.8 N40.1 - Continue tamsulosin 0.8 mg daily.- Discontinu e solifenaci n due to dizziness; initiate fesoterodi ne.- Consider cystscopy if symptoms persist. - Monitor urinary symptoms and adjust medication s as needed. Nocturia 541624704 R35.1 - Addressed with medication adjustment s and monitoring . Kidney stone 37311238 N2 0.0 - Follow-up post-ESWL. 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 No dysuria. - CT scan at [facility]: 3 mm kidney stone CORINA WELLS MD [address] [place] [address], [phone], [facility] 02/09/2025 13:45:17 03/05/2025 text/html Patient is here [...] until the recent days. RAKAN EARL MD [address] [place] [address], [phone], [facility] 03/06/2025 10:38:36 03/27/2025 text/html - The patient [...] Continues tamsulosin therapy noted. CORINA WELLS MD [address] [place] [address], [address], [facility] 04/06/2025 15:12:32 05/05/2025 text/html The patient is [...] urine volume: 66 mL CORINA WELLS MD [facility] [place], [address], [facility] 05/06/2025 21:24:04
--- OUTSIDE RECORDS SUMMARY | 2025-06-15 12:52 | XMS_ITS | Data Portability ---
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 Phone MATTHEW ROBERTS Primary Care Provider Assessment Encounter Date Assessment [...] average glucose, QN, blood 2023 024 [email or web address] [facility] (Laboratory), [address] [place], [address], 09:45:52 CBC w/ auto diff 2023 024 [facility] (Laboratory), [address] [place], [address], 4 13:38:29 lipid panel, serum 2023 024 [facility] (Laboratory), [address] [place], [address], 4 13:47:38 CMP, serum or plasma 2023 024 [facility] (Laboratory), [address] [place], [address], 4 13:46:33 CMP, serum or plasma 2023 024 [facility] (Laboratory), [address] [place], [address], 4 14:18:35 CBC w/ auto diff 2023 024 [facility] (Laboratory), [address] [place], [address], 4 13:21:00 hemoglobin A1c + average glucose, QN, blood 2023 024 [facility] (Laboratory), [address] [place], [address], 4 08:07:57 TSH, serum or plasma 2023 024 [facility] (Laboratory), [address] [place], [address], 4 14:18:33 lipid panel, serum 2023 024 [facility] (Laboratory), [address] [place], [address], 4 14:18:37 CMP, serum or plasma 2022 023 [facility] (Laboratory), [address] [place], [address], 3 12:08:17 CBC w/ auto diff 2022 023 [facility] (Laboratory), [address] [place], [address], 3 10:52:20 hemoglobin A1c + average glucose, QN, blood 2022 0[facility] [address] [place], [address], 3 08:09:25 lipid panel, serum 2022 023 [facility] (Laboratory), [address] [place], [address], 3 12:08:19 Referral None recorded. Procedures None recorded. Surgeries None recorded. Imaging None recorded. Medication Orders allopurinol 100 mg tablet 2023 024 [facility], [address] [place] [address], [address], 4 16:10:09 glipizide ER 10 mg tablet, extended release 24 hr 2023 024 [facility], [facility] [place], [address], 4 10:58:15 pioglitazon e 15 mg tablet 2023 024 [facility], [facility] [place], [address], 4 10:58:17 famotidine 20 mg tablet 2023 024 [facility], [facility] [place], [address], 4 16:10:06 aspirin 81 mg tablet,reggie yed release 2023 024 [facility], [facility] [place], [address], 4 10:58:11 lisinopril 20 mg-hydrochl orothiazide 12.5 mg tablet 2023 024 [facility], [address] [place] [address], [place], [address], 4 16:10:10 tamsulosin 0.4 mg capsule 2023 [facility], [address] [place], [address], 16:10:12 allopurinol [address] [facility], [address] [place] [address], [address], 4 11:25:37 glipizide ER 10 mg tablet, extended release [address] [facility], [address] [place] [address], [address], 4 11:25:36 famotidine [address] [facility], [address] [place] [address], [address], 4 11:25:36 lisinopril 20 mg-hydrochl orothiazide 12.5 mg tablet 2023 024 [facility], [address] [place] [address], [address], 4 11:25:34 tamsulosin 0.4 mg capsule 2023 024 [facility], [address] [place] [address], [address], 4 11:25:35 Patient TargetsNo targets recorded. Patient InstructionsNo instructions recorded. Reason for Referral None Reported. Results Created Date Observation Date Name Description Value Unit Range Abnormal Flag Note LastModifiedBy Organization Detail LastModifiedTime 10/23/20 23 10/23/2023 CBC AUTO W DIFF WBC 6.2 10 4.5-11 .5 Not Available [facility] (Lab Registration) [address], [place], [address], 10/23/2023 10:52:20 10/23/20 23 10/23/2023 CBC AUTO W DIFF RBC 4.07 10 4.25-5 .57 low Not Available [facility] (Lab Registration) [address] [place], [address], 10/23/2023 10:52:20 10/23/20 23 10/23/2023 CBC AUTO W DIFF HGB 12.7 g/dL 13.5-1 7.2 low Not Available [facility] (Lab Registration) [address] [place], [address], 10/23/2023 10:52:20 10/23/20 23 10/23/2023 CBC AUTO W DIFF HCT 39.2 % 42.0-5 2.0 low Not Available [facility] (Lab Registration) [address] [place], [address], 10/23/2023 10:52:20 10/23/20 23 10/23/2023 CBC AUTO W DIFF MCV 96.3 fL 80-95 high Not Available [facility] (Lab Registration) [address] [place], [address], 10/23/2023 10:52:20 10/23/20 23 10/23/2023 CBC AUTO W DIFF MCH 31.2 pg 27.0-3 4.0 Not Available [facility] (Lab Registration) [address] [place], [address], 10/23/2023 10:52:20 10/23/20 23 10/23/2023 CBC AUTO W DIFF MCHC 32.4 g/dL 32.0-3 6.0 Not Available [facility] (Lab Registration) [address] [place], [address], 10/23/2023 10:52:20 10/23/20 23 10/23/2023 CBC AUTO W DIFF platelet count 251 10 150-45 0 Not Available [facility] (Lab Registration) [address], [place], [address], 10/23/2023 10:52:20 10/23/20 23 10/23/2023 CBC AUTO W DIFF RDW 13.4 % 12.3-1 5.1 Not Available [facility] (Lab Registration) [address] [place], [address], 10/23/2023 10:52:20 10/23/20 23 10/23/2023 CBC AUTO W DIFF MPV 10.5 fL 7.4-10 .4 high Not Available [facility] (Lab Registration) [address], [place], [address], 10/23/2023 10:52:20 10/23/20 23 10/23/2023 CBC AUTO W DIFF granulocyte% 66.2 % 40-75 Not Available [facility] (Lab Registration) [address] [place], [address], 10/23/2023 10:52:20 10/23/20 23 10/23/2023 CBC AUTO W DIFF lymphocyte% 23.5 % 15-57 Not Available [facility] (Lab Registration) [address] [place], [address], 10/23/2023 10:52:20 10/23/20 23 10/23/2023 CBC AUTO W DIFF monocyte% 6.4 % 4.0-12 .0 Not Available [facility] (Lab Registration) [address] [place], [address], 10/23/2023 10:52:20 10/23/20 23 10/23/2023 CBC AUTO W DIFF eosinophil% 3.2 % 0.0-4. 0 Not Available [facility] (Lab Registration) [address] [place], [address], 10/23/2023 10:52:20 10/23/20 23 10/23/2023 CBC AUTO W DIFF basophil% 0.5 % 0.0-1. 0 Not Available [facility] (Lab Registration) [address] [place], [address], 10/23/2023 10:52:20 10/23/20 23 10/23/2023 CBC AUTO W DIFF immature granulocytes % 0.2 % 0.0-0. 8 Not Available [facility] (Lab Registration) [address] [place], [address], 10/23/2023 10:52:20 10/23/20 23 10/23/2023 CBC AUTO W DIFF granulocyte# 4.12 10 Not Available [facility] (Lab Registration) [address] [place], [address], 10/23/2023 10:52:20 10/23/20 23 10/23/2023 CBC AUTO W DIFF lymphocyte# 1.46 10 Not Available [facility] (Lab Registration) [address] [place], [address], 10/23/2023 10:52:20 10/23/20 23 10/23/2023 CBC AUTO W DIFF monocyte# 0.40 10 Not Available [facility] (Lab Registration) [address] [place], [address], 10/23/2023 10:52:20 10/23/20 23 10/23/2023 CBC AUTO W DIFF eosinophil# 0.20 10 Not Available [facility] (Lab Registration) [address] [place], [address], 10/23/2023 10:52:20 10/23/20 23 10/23/2023 CBC AUTO W DIFF basophil# 0.03 10 Not Available [facility] (Lab Registration) [address] [place], [address], 10/23/2023 10:52:20 10/23/20 23 10/23/2023 CBC AUTO W DIFF immature granulocytes # 0.01 10 Not Available [facility] (Lab Registration) [address] [place], [address], 10/23/2023 10:52:20 10/23/20 23 10/23/2023 CBC AUTO W DIFF manual differential NO Not Available [facility] (Lab Registration) [address] [place], [address], 10/23/2023 10:52:20 10/23/20 23 10/23/2023 CBC AUTO W DIFF note Unles s other bowles noted testi ng perfo rmed at: [facility] [address] [place] [address] [phone] Wesley anaya MD CLIA: [id number] Not Available [facility] (Lab Registration) [address], [place], [address], 10/23/2023 10:52:20 10/23/20 23 10/23/2023 COMP METAB OLIC PANEL sodium 139 mmol/ L 136-14 5 Not Available [facility] (Lab Registration) [address], [place], [address], 10/23/2023 12:08:17 10/23/20 23 10/23/2023 COMP METAB OLIC PANEL potassium 4.8 mmol/ L 3.5-5. 1 Not Available [facility] (Lab Registration) [address] [place], [address], 10/23/2023 12:08:17 10/23/20 23 10/23/2023 COMP METAB OLIC PANEL chloride 104 mmol/ L 98-107 Not Available [facility] (Lab Registration) [address] [place], [address], 10/23/2023 12:08:17 10/23/20 23 10/23/2023 COMP METAB OLIC PANEL carbon dioxide 26 mmol/ L 21-32 Not Available [facility] (Lab Registration) [address] [place], [address], 10/23/2023 12:08:17 10/23/20 23 10/23/2023 COMP METAB OLIC PANEL anion gap 9.0 Not Available [facility] (Lab Registration) [address] [place], [address], 10/23/2023 12:08:17 10/23/20 23 10/23/2023 COMP METAB OLIC PANEL glucose 251 mg/dL 70-110 high Not Available [facility] (Lab Registration) [address] [place], [address], 10/23/2023 12:08:17 10/23/20 23 10/23/2023 COMP METAB OLIC PANEL blood urea nitrogen 33 mg/dL 7-18 high Not Available [facility] (Lab Registration) [address] [place], [address], 10/23/2023 12:08:17 10/23/20 23 10/23/2023 COMP METAB OLIC PANEL creatinine 1.9 mg/dL 0.8-1. 3 high Not Available [facility] (Lab Registration) [address] [place], [address], 10/23/2023 12:08:17 10/23/20 23 10/23/2023 COMP METAB OLIC PANEL BUN/creatini ne ratio 17.4 ratio 9-21 Not Available [facility] (Lab Registration) [address] [place], [address], 10/23/2023 12:08:17 10/23/20 23 10/23/2023 COMP METAB OLIC PANEL estimated glom filtration rate 37 mL/mi n >60- low Not Available [facility] (Lab Registration) [address] [place], [address], 10/23/2023 12:08:17 10/23/20 23 10/23/2023 COMP METAB OLIC PANEL total protein 6.9 g/dL 6.4-8. 2 Not Available [facility] (Lab Registration) [address] [place], [address], 10/23/2023 12:08:17 10/23/20 23 10/23/2023 COMP METAB OLIC PANEL albumin 3.9 g/dL 3.4-5. 0 Not Available [facility] (Lab Registration) [address] [place], [address], 10/23/2023 12:08:17 10/23/20 23 10/23/2023 COMP METAB OLIC PANEL calcium 9.8 mg/dL 8.5-10 .1 Not Available [facility] (Lab Registration) [address] [place], [address], 10/23/2023 12:08:17 10/23/20 23 10/23/2023 COMP METAB OLIC PANEL corrected calcium 9.9 mg/dL 8.5-10 .1 Not Available [facility] (Lab Registration) [address] [place], [address], 10/23/2023 12:08:17 10/23/20 23 10/23/2023 COMP METAB OLIC PANEL bilirubin total 0.8 mg/dL 0.4-1. 5 Not Available [facility] (Lab Registration) [address] [place], [address], 10/23/2023 12:08:17 10/23/20 23 10/23/2023 COMP METAB OLIC PANEL AST (SGOT) 23 U/L 15-37 Not Available [facility] (Lab Registration) [address] [place], [address], 10/23/2023 12:08:17 10/23/20 23 10/23/2023 COMP METAB OLIC PANEL ALT (SGPT) 35 U/L 12-78 Not Available [facility] (Lab Registration) [address] [place], [address], 10/23/2023 12:08:17 10/23/20 23 10/23/2023 COMP METAB OLIC PANEL alk phosphatase 91 U/L Not Available [facility] (Lab Registration) [address] [place], [address], 10/23/2023 12:08:17 10/23/20 23 10/23/2023 COMP METAB OLIC PANEL note Unles s other bowles noted testi ng perfo rmed at: [facility] [address] [place] [address] [phone] Wesley anaya MD CLIA: [id number] Not Available [facility] (Lab Registration) [address] , [place], [address], 10/23/2023 12:08:17 10/23/20 23 10/23/2023 LIPID PANEL triglyceride 86 mg/dL 20-200 The [employer] t[employer] am (NCEP ) has set the follo wing guide lines for Fasti ng Trigl yceri selvin: ADAMARIS L: <150 mg/dL BORDE RLINE HIGH: 150 - 199 mg/dL HIGH: 200 - 499 mg/dL VERY HIGH: > or =500 mg/dL Not Available [facility] (Lab Registration) [address] , [place], [address], 10/23/2023 12:08:19 10/23/20 23 10/23/2023 LIPID PANEL cholesterol 228 mg/dL 0-200 high The [employer] t[employer] am (NCEP ) has set the follo wing guide lines for Fasti ng Susi stero l: SELAM ABLE: <200 mg/dL BORDE RLINE HIGH: 200 - 239 mg/dL HIGH: > or =240 mg/dL Not Available [facility] (Lab Registration) [address] [place], [address], 10/23/2023 12:08:19 10/23/2010/23/2023 LIPID PANEL HDL cholesterol 72 mg/dL 60- The [employer]io n[employer]i [employer] l [employer]ca t[employer]gr am (NCEP ) has set the follo wing guide lines for Fasti ng HDL Susi stero l: LOW HDL: <40 mg/dL ADAMARIS L: 40 - 60 mg/dL SELAM ABLE: >60 mg/dL Not Available [facility] (Lab Registration) [address] [place], [address], 10/23/2023 12:08:19 10/23/20 23 10/23/2023 LIPID PANEL [...] > or = 190 mg/dL Not Available [facility] (Lab Registration) [address] [place], [address], 10/23/2023 12:08:19 10/23/20 23 10/23/2023 LIPID PANEL chol/HDL ratio 3 ratio -5 Not Available [facility] (Lab Registration) [address] [place], [address], 10/23/2023 12:08:19 10/23/20 23 10/23/2023 LIPID PANEL note Unles s other bowles noted testi ng perfo rmed at: [facility] [address] [place] [address] [phone] Wesley anaya MD CLIA: [id number] Not Available [facility] (Lab Registration) [address] [place], [address], 10/23/2023 12:08:19 10/23/20 23 10/23/2023 HEMOG LOBIN A1C glycosylated hemoglobin A1C 9.8 % 4.5-6. 2 high Not Available [facility] (Lab Registration) [address] [place], [address], 10/23/2023 13:29:42 10/23/20 23 10/23/2023 HEMOG LOBIN A1C estimated average glucose 235 mg/dL 82-131 high Not Available [facility] (Lab Registration) [address] [place], [address], 10/23/2023 13:29:42 10/23/20 23 10/23/2023 HEMOG LOBIN A1C note Unles s other bowles noted testi ng perfo rmed at: [facility] [address] [place] [address] [phone] Wesley anaya MD CLIA: [id number] Not Available [facility] (Lab Registration) [address] [place], [address], 10/23/2023 13:29:42 01/29/20 24 01/29/2024 CBC AUTO W DIFF WBC 7.5 10 4.5-11 .5 Not Available [facility] (Lab Registration) [address] [place], [address], 01/29/2024 13:21:00 01/29/20 24 01/29/2024 CBC AUTO W DIFF RBC 4.49 10 4.25-5 .57 Not Available [facility] (Lab Registration) [address] [place], [address], 01/29/2024 13:21:00 01/29/20 24 01/29/2024 CBC AUTO W DIFF HGB 13.4 g/dL 13.5-1 7.2 low Not Available [facility] (Lab Registration) [address] [place], [address], 01/29/2024 13:21:00 01/29/20 24 01/29/2024 CBC AUTO W DIFF HCT 41.4 % 42.0-5 2.0 low Not Available [facility] (Lab Registration) [address] [place], [address], 01/29/2024 13:21:00 01/29/20 24 01/29/2024 CBC AUTO W DIFF MCV 92.2 fL 80-95 Not Available [facility] (Lab Registration) [address] [place], [address], 01/29/2024 13:21:00 01/29/20 24 01/29/2024 CBC AUTO W DIFF MCH 29.8 pg 27.0-3 4.0 Not Available [facility] (Lab Registration) [address] [place], [address], 01/29/2024 13:21:00 01/29/20 24 01/29/2024 CBC AUTO W DIFF MCHC 32.4 g/dL 32.0-3 6.0 Not Available [facility] (Lab Registration) [address] [place], [address], 01/29/2024 13:21:00 01/29/20 24 01/29/2024 CBC AUTO W DIFF platelet count 263 10 150-45 0 Not Available [facility] (Lab Registration) [address] [place], [address], 01/29/2024 13:21:00 01/29/20 24 01/29/2024 CBC AUTO W DIFF RDW 13.2 % 12.3-1 5.1 Not Available [facility] (Lab Registration) [address] [place], [address], 01/29/2024 13:21:00 01/29/20 24 01/29/2024 CBC AUTO W DIFF MPV 10.7 fL 7.4-10 .4 high Not Available [facility] (Lab Registration) [address] [place], [address], 01/29/2024 13:21:00 01/29/20 24 01/29/2024 CBC AUTO W DIFF granulocyte% 68.6 % 40-75 Not Available [facility] (Lab Registration) [address] [place], [address], 01/29/2024 13:21:00 01/29/20 24 01/29/2024 CBC AUTO W DIFF lymphocyte% 22.0 % 15-57 Not Available [facility] (Lab Registration) [address] [place], [address], 01/29/2024 13:21:00 01/29/20 24 01/29/2024 CBC AUTO W DIFF monocyte% 5.8 % 4.0-12 .0 Not Available [facility] (Lab Registration) [address] [place], [address], 01/29/2024 13:21:00 01/29/20 24 01/29/2024 CBC AUTO W DIFF eosinophil% 2.5 % 0.0-4. 0 Not Available [facility] (Lab Registration) [address] [place], [address], 01/29/2024 13:21:00 01/29/20 24 01/29/2024 CBC AUTO W DIFF basophil% 0.8 % 0.0-1. 0 Not Available [facility] (Lab Registration) [address] [place], [address], 01/29/2024 13:21:00 01/29/20 24 01/29/2024 CBC AUTO W DIFF immature granulocytes % 0.3 % 0.0-0. 8 Not Available [facility] (Lab Registration) [address] [place], [address], 01/29/2024 13:21:00 01/29/20 24 01/29/2024 CBC AUTO W DIFF granulocyte# 5.12 10 Not Available [facility] (Lab Registration) [address] [place], [address], 01/29/2024 13:21:00 01/29/20 24 01/29/2024 CBC AUTO W DIFF lymphocyte# 1.64 10 Not Available [facility] (Lab Registration) [address] [place], [address], 01/29/2024 13:21:00 01/29/20 24 01/29/2024 CBC AUTO W DIFF monocyte# 0.43 10 Not Available [facility] (Lab Registration) [address] [place], [address], 01/29/2024 13:21:00 01/29/20 24 01/29/2024 CBC AUTO W DIFF eosinophil# 0.19 10 Not Available [facility] (Lab Registration) [address] [place], [address], 01/29/2024 13:21:00 01/29/20 24 01/29/2024 CBC AUTO W DIFF basophil# 0.06 10 Not Available [facility] (Lab Registration) [address] [place], [address], 01/29/2024 13:21:00 01/29/20 24 01/29/2024 CBC AUTO W DIFF immature granulocytes # 0.02 10 Not Available [facility] (Lab Registration) [address] [place], [address], 01/29/2024 13:21:00 01/29/20 24 01/29/2024 CBC AUTO W DIFF manual differential NO Not Available [facility] (Lab Registration) [address] [place], [address], 01/29/2024 13:21:00 01/29/20 24 01/29/2024 CBC AUTO W DIFF note Unles s other bowles noted testi ng perfo rmed at: [facility] [address] [place] [address] [phone] Wesley anaya MD CLIA: [id number] Not Available [facility] (Lab Registration) [address] [place], [address], 01/29/2024 13:21:00 01/29/20 24 01/29/2024 HEMOG LOBIN A1C glycosylated hemoglobin A1C 8.3 % 4.5-6. 2 high Not Available [facility] (Lab Registration) [address] [place], [address], 01/29/2024 14:17:27 01/29/20 24 01/29/2024 HEMOG LOBIN A1C estimated average glucose 192 mg/dL 82-131 high Not Available [facility] (Lab Registration) [address] [place], [address], 01/29/2024 14:17:27 01/29/20 24 01/29/2024 HEMOG LOBIN A1C note Brian anaya other bowles noted testi ng perfo rmed at: [facility] [address] [place] [address] [phone] Wesley anaya MD CLIA: [id number] Not Available [facility] (Lab Registration) [address], [place], [address], 01/29/2024 14:17:27 01/29/20 24 01/29/2024 THYRO ID STIMU LATIN G HORMO NE thyroid stimulating hormone 1.60 mIU/m L 0.34-4 .80 Not Available [facility] (Lab Registration) [address] [place], [address], 01/29/2024 14:18:33 01/29/20 24 01/29/2024 THYRO ID STIMU LATIN G HORMO NE note Brian chicas bowles noted testi ng perfo rmed at: [facility] [address] [place] [address] [phone] Wesley anaya MD CLIA: [id number] Not Available [facility] (Lab Registration) [address], [place], [address], 01/29/2024 14:18:33 01/29/20 24 01/29/2024 COMP METAB OLIC PANEL sodium 138 mmol/ L 136-14 5 Not Available [facility] (Lab Registration) [address], [place], [address], 01/29/2024 14:18:35 01/29/20 24 01/29/2024 COMP METAB OLIC PANEL potassium 5.3 mmol/ L 3.5-5. 1 high Not Available [facility] (Lab Registration) [address] [place], [address], 01/29/2024 14:18:35 01/29/20 24 01/29/2024 COMP METAB OLIC PANEL chloride 104 mmol/ L 98-107 Not Available [facility] (Lab Registration) [address] [place], [address], 01/29/2024 14:18:35 01/29/20 24 01/29/2024 COMP METAB OLIC PANEL carbon dioxide 21 mmol/ L 21-32 Not Available [facility] (Lab Registration) [address] [place], [address], 01/29/2024 14:18:35 01/29/20 24 01/29/2024 COMP METAB OLIC PANEL anion gap 13.0 Not Available [facility] (Lab Registration) [address] [place], [address], 01/29/2024 14:18:35 01/29/20 24 01/29/2024 COMP METAB OLIC PANEL glucose 123 mg/dL 70-110 high Not Available [facility] (Lab Registration) [address] [place], [address], 01/29/2024 14:18:35 01/29/20 24 01/29/2024 COMP METAB OLIC PANEL blood urea nitrogen 45 mg/dL 7-18 high Not Available [facility] (Lab Registration) [address] [place], [address], 01/29/2024 14:18:35 01/29/20 24 01/29/2024 COMP METAB OLIC PANEL creatinine 2.0 mg/dL 0.8-1. 3 high Not Available [facility] (Lab Registration) [address] [place], [address], 01/29/2024 14:18:35 01/29/20 24 01/29/2024 COMP METAB OLIC PANEL BUN/creatini ne ratio 22.5 ratio 9-21 high Not Available [facility] (Lab Registration) [address], [place], [address], 01/29/2024 14:18:35 01/29/20 24 01/29/2024 COMP METAB OLIC PANEL estimated glom filtration rate 35 mL/mi n >60- low Not Available [facility] (Lab Registration) [address] [place], [address], 01/29/2024 14:18:35 01/29/20 24 01/29/2024 COMP METAB OLIC PANEL total protein 6.8 g/dL 6.4-8. 2 Not Available [facility] (Lab Registration) [address] [place], [address], 01/29/2024 14:18:35 01/29/20 24 01/29/2024 COMP METAB OLIC PANEL albumin 3.8 g/dL 3.4-5. 0 Not Available [facility] (Lab Registration) [address] [place], [address], 01/29/2024 14:18:35 01/29/20 24 01/29/2024 COMP METAB OLIC PANEL calcium 9.9 mg/dL 8.5-10 .1 Not Available [facility] (Lab Registration) [address] [place], [address], 01/29/2024 14:18:35 01/29/20 24 01/29/2024 COMP METAB OLIC PANEL corrected calcium 10.1 mg/dL 8.5-10 .1 Not Available [facility] (Lab Registration) [address] [place], [address], 01/29/2024 14:18:35 01/29/20 24 01/29/2024 COMP METAB OLIC PANEL bilirubin total 0.7 mg/dL 0.4-1. 5 Not Available [facility] (Lab Registration) [address], [place], [address], 01/29/2024 14:18:35 01/29/20 24 01/29/2024 COMP METAB OLIC PANEL AST (SGOT) 27 U/L 15-37 Not Available [facility] (Lab Registration) [address], [place], [address], 01/29/2024 14:18:35 01/29/20 24 01/29/2024 COMP METAB OLIC PANEL ALT (SGPT) 43 U/L 12-78 Not Available [facility] (Lab Registration) [address] [place], [address], 01/29/2024 14:18:35 01/29/20 24 01/29/2024 COMP METAB OLIC PANEL alk phosphatase 82 U/L Not Available [facility] (Lab Registration) [address] [place], [address], 01/29/2024 14:18:35 01/29/20 24 01/29/2024 COMP METAB OLIC PANEL note Unles s other bowles noted testi ng perfo rmed at: [facility] [place] [address] [phone] Wesley anaya MD CLIA: [id number] Not Available [facility] (Lab Registration) [address] [place], [address], 01/29/2024 14:18:35 01/29/20 24 01/29/2024 LIPID PANEL triglyceride 46 mg/dL 20-200 The Natio nal Susi stero l Educa tion Progr am (NCEP ) has set the follo wing guide lines for Fasti ng Trigl yceri selvin: ADAMARIS L: <150 mg/dL BORDE RLINE HIGH: 150 - 199 mg/dL HIGH: 200 - 499 mg/dL VERY HIGH: > or =500 mg/dL Not Available [facility] (Lab Registration) [address] [place], [address], 01/29/2024 14:18:37 01/29/20 24 01/29/2024 LIPID PANEL cholesterol 207 mg/dL 0-200 high The Natio nal Susi stero l Educa tion Progr am ([facility] ) has set the follo wing guide lines for Fasti ng Susi stero l: SELAM ABLE: <200 mg/dL BORDE RLINE HIGH: 200 - 239 mg/dL HIGH: > or =240 mg/dL Not Available [facility] (Lab Registration) [address], [place], [address], 01/29/2024 14:18:37 01/29/20 24 01/29/2024 LIPID PANEL HDL cholesterol 81 mg/dL 60- The Natio nal Susi stero l Educa tion Progr am (OREP ) has set the follo wing guide lines for Fasti ng HDL Ussi stero l: LOW HDL: <40 mg/dL ADAMARIS L: 40 - 60 mg/dL SELAM ABLE: >60 mg/dL Not Available [facility] (Lab Registration) [address], [place], [address], 01/29/2024 14:18:37 01/29/20 24 01/29/2024 LIPID PANEL LDL calculated 117 mg/dL 100- The Natio nal Susi stero l Educa tion Progr am ([facility] ) has set the follo wing guide lines for Fasti ng LDL Susi stero l: OPTIM AL: < 100 mg/dL LOW RISK: 100 - 129 mg/dL BORDE RLINE HIGH: 130 - 159 mg/dL HIGH: 160 - 189 mg/dL VERY HIGH: > or = 190 mg/dL Not Available [facility] (Lab Registration) [address], [place], [address], 01/29/2024 14:18:37 01/29/20 24 01/29/2024 LIPID PANEL chol/HDL ratio 3 ratio -5 Not Available [facility] (Lab Registration) [address] [place], [address], 01/29/2024 14:18:37 01/29/20 24 01/29/2024 LIPID PANEL note Unles s other bowles noted testi ng perfo rmed at: [facility] [address] [place] [address] [phone] [place] anaya MD CLIA: [id number] Not Available [facility] (Lab Registration) [address] [place], [address], 01/29/2024 14:18:37 03/25/20 24 03/25/2024 HEMOG LOBIN A1C glycosylated hemoglobin A1C 7.6 % 4.5-6. 2 high Not Available [facility] (Lab Registration) [address] [place], [address], 03/25/2024 13:36:12 03/25/20 24 03/25/2024 HEMOG LOBIN A1C estimated average glucose 171 mg/dL 82-131 high Not Available [facility] (Lab Registration) [address] [place], [address], 03/25/2024 13:36:12 03/25/20 24 03/25/2024 HEMOG LOBIN A1C note Unles s other bowles noted testi ng perfo rmed at: [facility] [address] [place] [address] [phone] Wesley anaya MD CLIA: [id number] Not Available [facility] (Lab Registration) [address] [place], [address], 03/25/2024 13:36:12 03/25/20 24 03/25/2024 CBC AUTO W DIFF WBC 5.4 10 4.5-11 .5 Not Available [facility] (Lab Registration) [address] [place], [address], 03/25/2024 13:38:29 03/25/20 24 03/25/2024 CBC AUTO W DIFF RBC 4.32 10 4.25-5 .57 Not Available [facility] (Lab Registration) [address] [place], [address], 03/25/2024 13:38:29 03/25/20 24 03/25/2024 CBC AUTO W DIFF HGB 13.1 g/dL 13.5-1 7.2 low Not Available [facility] (Lab Registration) [address] [place], [address], 03/25/2024 13:38:29 03/25/20 24 03/25/2024 CBC AUTO W DIFF HCT 40.0 % 42.0-5 2.0 low Not Available [facility] (Lab Registration) [address] [place], [address], 03/25/2024 13:38:29 03/25/20 24 03/25/2024 CBC AUTO W DIFF MCV 92.6 fL 80-95 Not Available [facility] (Lab Registration) [address] [place], [address], 03/25/2024 13:38:29 03/25/20 24 03/25/2024 CBC AUTO W DIFF MCH 30.3 pg 27.0-3 4.0 Not Available [facility] (Lab Registration) [address] [place], [address], 03/25/2024 13:38:29 03/25/20 24 03/25/2024 CBC AUTO W DIFF MCHC 32.8 g/dL 32.0-3 6.0 Not Available [facility] (Lab Registration) [address] [place], [address], 03/25/2024 13:38:29 03/25/20 24 03/25/2024 CBC AUTO W DIFF platelet count 262 10 150-45 0 Not Available [facility] (Lab Registration) [address] [place], [address], 03/25/2024 13:38:29 03/25/20 24 03/25/2024 CBC AUTO W DIFF RDW 13.5 % 12.3-1 5.1 Not Available [facility] (Lab Registration) [address] [place], [address], 03/25/2024 13:38:29 03/25/20 24 03/25/2024 CBC AUTO W DIFF MPV 10.7 fL 7.4-10 .4 high Not Available [facility] (Lab Registration) [address] [place], [address], 03/25/2024 13:38:29 03/25/20 24 03/25/2024 CBC AUTO W DIFF granulocyte% 59.6 % 40-75 Not Available [facility] (Lab Registration) [address] [place], [address], 03/25/2024 13:38:29 03/25/20 24 03/25/2024 CBC AUTO W DIFF lymphocyte% 26.8 % 15-57 Not Available [facility] (Lab Registration) [address] [place], [address], 03/25/2024 13:38:29 03/25/20 24 03/25/2024 CBC AUTO W DIFF monocyte% 7.6 % 4.0-12 .0 Not Available [facility] (Lab Registration) [address] [place], [address], 03/25/2024 13:38:29 03/25/20 24 03/25/2024 CBC AUTO W DIFF eosinophil% 5.0 % 0.0-4. 0 high Not Available [facility] (Lab Registration) [address] [place], [address], 03/25/2024 13:38:29 03/25/20 24 03/25/2024 CBC AUTO W DIFF basophil% 0.6 % 0.0-1. 0 Not Available [facility] (Lab Registration) [address] [place], [address], 03/25/2024 13:38:29 03/25/20 24 03/25/2024 CBC AUTO W DIFF immature granulocytes % 0.4 % 0.0-0. 8 Not Available [facility] (Lab Registration) [address] [place], [address], 03/25/2024 13:38:29 03/25/20 24 03/25/2024 CBC AUTO W DIFF granulocyte# 3.23 10 Not Available [facility] (Lab Registration) [address] [place], [address], 03/25/2024 13:38:29 03/25/20 24 03/25/2024 CBC AUTO W DIFF lymphocyte# 1.45 10 Not Available [facility] (Lab Registration) [address] [place], [address], 03/25/2024 13:38:29 03/25/20 24 03/25/2024 CBC AUTO W DIFF monocyte# 0.41 10 Not Available [facility] (Lab Registration) [address] [place], [address], 03/25/2024 13:38:29 03/25/20 24 03/25/2024 CBC AUTO W DIFF eosinophil# 0.27 10 Not Available [facility] (Lab Registration) [address] [place], [address], 03/25/2024 13:38:29 03/25/20 24 03/25/2024 CBC AUTO W DIFF basophil# 0.03 10 Not Available [facility] (Lab Registration) [address] [place], [address], 03/25/2024 13:38:29 03/25/20 24 03/25/2024 CBC AUTO W DIFF immature granulocytes # 0.02 10 Not Available [facility] (Lab Registration) [address] [place], [address], 03/25/2024 13:38:29 03/25/20 24 03/25/2024 CBC AUTO W DIFF manual differential NO Not Available [facility] (Lab Registration) [address] [place], [address], 03/25/2024 13:38:29 03/25/20 24 03/25/2024 CBC AUTO W DIFF note Unles s other bowles noted testi ng perfo rmed at: [facility] [address] [place] [address] [phone] Wesley anaya MD CLIA: [id number] Not Available [facility] (Lab Registration) [address] [place], [address], 03/25/2024 13:38:29 03/25/20 24 03/25/2024 COMP METAB OLIC PANEL sodium 142 mmol/ L 136-14 5 Not Available [facility] (Lab Registration) [address] [place], [address], 03/25/2024 13:46:33 03/25/20 24 03/25/2024 COMP METAB OLIC PANEL potassium 5.2 mmol/ L 3.5-5. 1 high Not Available [facility] (Lab Registration) [address] [place], [address], 03/25/2024 13:46:33 03/25/20 24 03/25/2024 COMP METAB OLIC PANEL chloride 109 mmol/ L 98-107 high Not Available [facility] (Lab Registration) [address] [place], [address], 03/25/2024 13:46:33 03/25/20 24 03/25/2024 COMP METAB OLIC PANEL carbon dioxide 22 mmol/ L 21-32 Not Available [facility] (Lab Registration) [address] [place], [address], 03/25/2024 13:46:33 03/25/20 24 03/25/2024 COMP METAB OLIC PANEL anion gap 11.0 Not Available [facility] (Lab Registration) [address] [place], [address], 03/25/2024 13:46:33 03/25/20 24 03/25/2024 COMP METAB OLIC PANEL glucose 106 mg/dL 70-110 Not Available [facility] (Lab Registration) [address] [place], [address], 03/25/2024 13:46:33 03/25/20 24 03/25/2024 COMP METAB OLIC PANEL blood urea nitrogen 44 mg/dL 7-18 high Not Available [facility] (Lab Registration) [address] [place], [address], 03/25/2024 13:46:33 03/25/20 24 03/25/2024 COMP METAB OLIC PANEL creatinine 2.1 mg/dL 0.8-1. 3 high Not Available [facility] (Lab Registration) [address] [place], [address], 03/25/2024 13:46:33 03/25/20 24 03/25/2024 COMP METAB OLIC PANEL BUN/creatini ne ratio 21.0 ratio 9-21 Not Available [facility] (Lab Registration) [address] [place], [address], 03/25/2024 13:46:33 03/25/20 24 03/25/2024 COMP METAB OLIC PANEL estimated glom filtration rate 33 mL/mi n >60- low Not Available [facility] (Lab Registration) [address] [place], [address], 03/25/2024 13:46:33 03/25/20 24 03/25/2024 COMP METAB OLIC PANEL total protein 6.8 g/dL 6.4-8. 2 Not Available [facility] (Lab Registration) [address] [place], [address], 03/25/2024 13:46:33 03/25/20 24 03/25/2024 COMP METAB OLIC PANEL albumin 3.8 g/dL 3.4-5. 0 Not Available [facility] (Lab Registration) [address] [place], [address], 03/25/2024 13:46:33 03/25/20 24 03/25/2024 COMP METAB OLIC PANEL calcium 9.6 mg/dL 8.5-10 .1 Not Available [facility] (Lab Registration) [address], [place], [address], 03/25/2024 13:46:33 03/25/20 24 03/25/2024 COMP METAB OLIC PANEL corrected calcium 9.8 mg/dL 8.5-10 .1 Not Available [facility] (Lab Registration) [address] [place], [address], 03/25/2024 13:46:33 03/25/20 24 03/25/2024 COMP METAB OLIC PANEL bilirubin total 0.6 mg/dL 0.4-1. 5 Not Available [facility] (Lab Registration) [address] [place], [address], 03/25/2024 13:46:33 03/25/20 24 03/25/2024 COMP METAB OLIC PANEL AST (SGOT) 27 U/L 15-37 Not Available [facility] (Lab Registration) [address], [place], [address], 03/25/2024 13:46:33 03/25/20 24 03/25/2024 COMP METAB OLIC PANEL ALT (SGPT) 37 U/L 12-78 Not Available [facility] (Lab Registration) [address] [place], [address], 03/25/2024 13:46:33 03/25/20 24 03/25/2024 COMP METAB OLIC PANEL alk phosphatase 77 U/L Not Available [facility] (Lab Registration) [address] [place], [address], 03/25/2024 13:46:33 03/25/20 24 03/25/2024 COMP METAB OLIC PANEL note Unles s other bowles noted testi ng perfo rmed at: [facility] [address] [facility] [place] [address] [phone] Wesley anaya MD CLIA: [id number] Not Available [facility] (Lab Registration) [address] [place], [address], 03/25/2024 13:46:33 03/25/20 24 03/25/2024 LIPID PANEL triglyceride 54 mg/dL 20-200 The Natio nal Susi stero l Educa tion Progr am (NCEP ) has set the follo wing guide lines for Fasti ng Trigl yceri selvin: ADAMARIS L: <150 mg/dL BORDE RLINE HIGH: 150 - 199 mg/dL HIGH: 200 - 499 mg/dL VERY HIGH: > or =500 mg/dL Not Available [facility] (Lab Registration) [address] [place], [address], 03/25/2024 13:47:38 03/25/20 24 03/25/2024 LIPID PANEL cholesterol 204 mg/dL 0-200 high The Natio nal Susi stero l Educa tion Progr am (NCEP ) has set the follo wing guide lines for Fasti ng Susi stero l: SELAM ABLE: <200 mg/dL BORDE RLINE HIGH: 200 - 239 mg/dL HIGH: > or =240 mg/dL Not Available [facility] (Lab Registration) [address] [place], [address], 03/25/2024 13:47:38 03/25/20 24 03/25/2024 LIPID PANEL HDL cholesterol 64 mg/dL 60- The Natio nal Susi stero l Educa tion Progr am (NCEP ) has set the follo wing guide lines for Fasti ng HDL Susi stero l: LOW HDL: <40 mg/dL ADAMARIS L: 40 - 60 mg/dL SELAM ABLE: >60 mg/dL Not Available [facility] (Lab Registration) [address] [place], [address], 03/25/2024 13:47:38 03/25/20 24 03/25/2024 LIPID PANEL [...] > or = 190 mg/dL Not Available [facility] (Lab Registration) [address] , [place], [address], 03/25/2024 13:47:38 03/25/20 24 03/25/2024 LIPID PANEL chol/HDL ratio 3 ratio -5 Not Available [facility] (Lab Registration) [address] , [place], [address], 03/25/2024 13:47:38 03/25/20 24 03/25/2024 LIPID PANEL note Unles s other bowles noted testi ng perfo rmed at: [facility] [address] [facility] [place] [address] [phone] Wesley anaya MD CLIA: [id number] Not Available [facility] (Lab Registration) [address] , [place], [address], 03/25/2024 13:47:38 Result Notes None recorded. Problems Name Problem SNOMED Code Status Onset Date Resolution Date Notes Provider Name and Address Organization Details Recorded Time Essential hypertension 54034038 Active 2021 Not Available [facility] 4 05:15:12 Gastroesophag eal reflux disease 945355373 Active 2021 Not Available [facility] 4 05:15:12 Benign prostatic hyperplasia 051968293 Active 2021 Not Available [facility] 4 05:15:12 Type 2 diabetes mellitus 08126276 Active 2021 Not Available [facility] 4 05:15:12 Obstructive sleep apnea syndrome 28578595 Active 2021 Not Available [facility] 4 05:15:12 Hyperlipidemi a 08943754 Active 2021 Not Available [facility] 4 05:15:12 Chronic renal failure 91528808 Active 2021 Not Available [facility] 4 05:15:12 Gout 29690128 Active 2021 Not Available [facility] 4 05:15:12 Nocturnal muscle spasm 62326761 Active 2022 Not Available [facility] 4 05:15:12 Problem Notes None recorded. Procedures Surgical History Date Name Laterality Status Provider Name and Address Organization Details Recorded Time 06/19/20 24 Colonoscopy completed Samantha Temple [place] [facility] [place] 07/05/2024 10:35:11 04/23/20 19 circumcision completed Mitzysharri Yepezdini [place] [facility] [place] 08/24/2022 09:02:40 03/20/20 17 extracorporeal shockwave lithotripsy of calculus of kidney completed [facility] [place] [facility] [place] 08/24/2022 09:02:24 11/20/19 11 insertion of stent into ureter completed [facility] [place] [facility] [place] 08/24/2022 09:02:04 11/20/19 04 repair of musculotendinous cuff of shoulder completed [facility] [place] [facility] [place] 08/24/2022 09:01:39 11/20/19 04 [facility] musculotendinous [facility] [place] [facility] [place] 08/24/2022 09:01:43 appendectomy completed [facility] [place] [facility] [place] 08/24/2022 09:01:17 Imaging Results None recorded. Procedure Notes None recorded. Medical Equipment None Reported. Allergies Allergen ID Allergen Name Allergen Category Reaction Reaction Severity Criticality Documentation Date Start Date Code Code System Note Provider Name and Address Organization Details Recorded Time 25488 amoxicill in medicatio n diarrhea mild Not available 08/24/2022 723 RxNorm Not Available [facility] 4 05:15:12 Medications Name Sig Start Date [...] Pulse oximetry Heart rate Respiratory rate Systolic And Diastolic Provider Name and Address Organization Details Last Updated DateTime 4 175.26 cm 30.8 kg/m2 13690.6 5 g 97.9 [degF] 97 % 97 % 86 /min 16 /min 142/83 mm[Hg] Mitzy Yepezigor [facility] [place] & [place] 4 11:54:16 Date Recorded Body height Body mass index (BMI) Body weight Body temperature Oxygen saturation Oxygen saturation in Arterial blood by Pulse oximetry Heart rate Respiratory rate Systolic And Diastolic Provider Name and Address Organization Details Last Updated DateTime 4 175.26 cm 30.6 kg/m2 81158.3 4 g 97.7 [degF] 99 % 99 % 75 /min 16 /min 145/75 mm[Hg] Mitzy COWAN [facility] & [place] 4 11:02:40 Date Recorded Body height Body mass index (BMI) Body weight Body temperature Oxygen saturation Oxygen saturation in Arterial blood by Pulse oximetry Heart rate Respiratory rate Systolic And Diastolic Provider Name and Address Organization Details Last Updated DateTime 4 175.26 cm 30.5 kg/m2 27239.4 7 g 97.3 [degF] 98 % 98 % 62 /min 16 /min 139/80 mm[Hg] Mitzy COWAN [facility] & [place] 4 09:38:27 Date Recorded Body height Body mass index (BMI) Body weight Body temperature Oxygen saturation Oxygen saturation in Arterial blood by Pulse oximetry Heart rate Respiratory rate Systolic And Diastolic Provider Name and Address Organization Details Last Updated DateTime 4 175.26 cm 31.2 kg/m2 78067.9 9 g 97.2 [degF] 97 % 97 % 68 /min 16 /min 139/84 mm[Hg] [facility] [place] 4 10:45:09 Date Recorded Body height Body mass index (BMI) Body weight Body temperature Oxygen saturation Oxygen saturation in Arterial blood by Pulse oximetry Heart rate Respiratory rate Systolic And Diastolic Provider Name and Address Organization Details Last Updated DateTime 3 175.26 cm 30.1 kg/m2 84742.8 4 g 97.5 [degF] 100 % 100 % 80 /min 16 /min 156/81 mm[Hg] [facility] [place] 3 09:45:50 Social History Question Answer Notes LastModified by Organizat ion Details LastModified Time Tobacco Smoking Status Never Smoker MEHUL Zavala [facility] & [place] 08/24/2022 09:00:55 What Was The Date Of Your Most Recent Tobacco Screening? 01/18/2023 [email or web address] Information not available 01/18/2023 Has Tobacco Cessation [...] available 02/2024 09:46:20 Medical History Condition Response Gout Y Kidney Stones Y High Cholesterol Y Diabetes Y Hypertension Y Immunizations Vaccine Type Date Status Note Provider Nam e and Address Organization Details Recorded Time Influenza, adjuvanted, trivalent, PF 7 completed Not Available [facility] 12/14/2023 05:15:12 Influenza, MDCK, quadrivalent, PF 8 completed Not Available [facility] 12/14/2023 05:15:12 Influenza, high-dose, quadrivalent, PF 0 completed Not Available [facility] 12/14/2023 05:15:12 Influenza, high-dose, quadrivalent, PF 1 completed Not Available [facility] 12/14/2023 05:15:12 Influenza, high-dose, quadrivalent, PF 2 completed Not Available [facility] 12/14/2023 05:15:12 COVID-19, mRNA, LNP-S, PF, 100 mcg/0.5mL dose or 50 mcg/0.25mL dose 1 completed Not Available [facility] 12/14/2023 05:15:12 COVID-19, mRNA, LNP-S, PF, 100 mcg/0.5mL dose or 50 mcg/0.25mL dose 1 completed Not Available [facility] 12/14/2023 05:15:12 Pneumococcal conjugate PCV 13 8 completed Not Available [facility] 12/14/2023 05:15:12 Influenza, [place] 3 completed Not Available [facility] 12/14/2023 05:15:12 Influenza, high-dose, quadrivalent, PF 3 completed Mitzy Mariee [facility] & [place] 01/16/2024 11:54:33 Past Encounters Encounter ID Performer Location Encounter Start Date Encounter Closed Date Diagnosis/Indication Diagnosis SNOMED-CT Code Diagnosis ICD10 Code Diagnosis Note [id number] MD joel [address] [id number] 08/24/2022 08:39:33 08/24/2022 09:20:13 Injury of finger 99333001 S69.91XA partially avulsed nail has been removed. Patient tolerated procedure well. We have dressed finger with antibiotic ointment. [id number] MD joel [address] [id number] 09/30/2022 14:35:56 09/30/2022 15:25:25 Benign prostatic hyperplasia 143502232 N40.0 stable Essential hypertension 43992121 I10 patient's blood pressure is elevated. It is questionab le with a took his medication today. I have told him to monitor his blood pressure at home and let me know what his blood pressure log looks like. We may need to adjust his medication s. Gastroesop hageal reflux disease 681433814 K21.9 stable Hyperlipidemia 02491174 E78.5 Stable [id number] MD william [address] [id number] 12/23/2022 07:48:01 12/23/2022 08:44:12 Essential hypertension 33594731 I10 patient's blood pressure is elevated. It is questionab le with a took his medication today. I have told him to monitor his blood pressure at home and let me know what his blood pressure log looks like. We may need to adjust his medication s. Type 2 ekaterina betes mellitus 46026589 E11.9 will stop pioglitazo ne. Start patient on Jardiance. Hyperlipidemia 02704007 E78.5 Stable will check lab work today. Gastroesop hageal reflux disease 627905644 K21.9 stable [id number] Matthew Sokan, MD [address] [id number] 01/18/2023 10:46:45 01/18/2023 10:59:30 Type 2 diabetes mellitus 89125732 E11.9 Patient states he is unable to afford his Jardiance. He states he has been taking metformin. I will try to get him approved for Ozempic. Will send in a prescripti on today. Osteoarthritis 036271376 M19.90 patient has osteoarthr itis in both knees. He has an appointmen t follow-up with his orthopedis t in the morning. He is to continue to take Tylenol as needed for pain. [id number] MD william [address] [id number] 03/29/2023 08:21:03 03/29/2023 08:48:03 Type 2 diabetes mellitus 77185748 E11.9 PATIENT TO CONTINUE TO TAKE HIS METFORMIN. Cramp in lower limb 4499 [address]31 R25.2 WILL SEND IN A PRESCRIPTI ON FOR CYCLOBENZA VAIBHAV TO TAKE NEEDED. PATIENT TO ALSO START TAKING HIS POTASSIUM. Benign pro static hyperplasia 319179680 N40.0 PATIENT STATES THAT HIS TAMSULOSIN WORKS WELL FOR HIM. WILL SEND IN A REFILL TODAY. [id number] Matthew Roberts MD [facility] [address] [place] [address] 07/12/2023 08:08:09 07/12/2023 08:47:10 Type 2 diabetes mellitus 57516258 E11.9 PATIENT TO CONTINUE TO TAKE HIS METFORMIN. - WE WILL ADD JARDIANCE TO REGIMEN Screening for malignant neoplasm of colon 356117738 Z12.11 Benign pro static hyperplasia 345073188 N40.0 PATIENT STATES THAT HIS TAMSULOSIN WORKS WELL FOR HIM. WILL SEND IN A REFILL TODAY. Chronic renal failure 90 261247 N18.9 patient to continue to follow-up with nephrology . Essential hypertension 52066626 I10 Blood pressure controlled . Hyperlipidemia 10802383 E78.5 Stable will check lab work today. Gastroesop hageal reflux disease 055714218 K21.9 stable Cramp in lower limb 4499 [address]197 R25.2 WILL SEND IN A PRESCRIPTI ON FOR CYCLOBENZA VAIBHAV TO TAKE NEEDED. PATIENT TO ALSO START TAKING HIS POTASSIUM. Gout [id number] M10.9 will renew patient's allopurino l. [id number] Matthew Roberts MD [address] [place] [id number] 10/23/2023 09:30:21 10/23/2023 10:11:14 Essential hypertension 42127100 I10 Blood pressure controlled . Gastroesop hageal reflux disease [id number] K21.9 stable Hyperlipidemia 52268292 E78.5 Stable will check lab work today. Type 2 ekaterina betes mellitus 41760361 E11.9 patient states that he can not 4 Jardiance. He has also stopped his metformin secondary to diarrhea. Patient is currently not on any diabetic medication . 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 No anticoagul ation is required for this. Patient needs to follow-up with his orthopedis t. We attempted to call patient to discuss results of his ultrasound . No blood thinners required at this time.No reply. Mailbox is full. Will try again. [id number] Matthew Roberts MD [address] [place] [id number] 01/29/2024 10:46:20 01/29/2024 11:36:47 Type 2 diabetes mellitus 66369174 E11.9 Will check patient's A1c today. Essential hypertension 56075066 I10 Blood pressure controlled . Hyperlipidemia 16998879 E78.5 Stable will check lab work today. Gout 00116155 M10.9 Gastroesop hageal reflux disease 282417396 K21.9 Benign pro static hyperplasia 773867469 N40.0 [id number] Matthew Roberts MD [address] [place] [id number] 03/25/2024 09:27:23 03/25/2024 09:54:49 Type 2 diabetes mellitus 66090530 E11.9 Patient can not afford Ozempic so he has not taken Chronic renal failure 90 060780 N18.9 will check lab work today. Essential hypertension 96551652 I10 Blood pressure controlled . Hyperlipidemia 33142208 E78.5 Stable will check lab work today. Gout 37590127 M10.9 Patient takes allopurino l. Will refill his prescripti on. [id number] Matthew Roberts MD [facility] [address] [place] [id number] 07/09/2024 10:31:32 07/09/2024 10:49:39 Fracture at wrist and/or hand level [id number] S62.91XD continue to follow-up with orthopedis t. Gout 10406859 M10.9 Patient takes allopurino l. Will refill his prescripti on. Essential hypertension 63877350 I10 Blood pressure controlled . Gastroesop hageal reflux disease 505060743 K21.9 Type 2 ekaterina betes mellitus 05298742 E11.9 Benign pro static hyperplasia 756794382 N40.0 Health Concerns Section Related Observation LastModified by Organization Detai ls LastModified Time None Recorded Concern Status LastModified by Organization Details LastModified Time None Recorded Advance Directives Directive None Recorded Payers Insurance Date Sequence Insurance Name Policy Number Policy Muhammad Covered Member ID Muhammad Member ID Guarantor Name 06/08/2024 2 [employer] (MEDICARE SUPPLEMENT) Addison Peguero [id number] Addison Peguero 10/25/2024 [place] [facility] Addison Peguero [id number] Addison Peguero 10/25/2024 1 [place] Addison Peguero [id number] Addison Peguero 10/25/2024 2 [employer] (MEDICARE SUPPLEMENT) Addison Peguero [id number] Addison Peguero 10/25/2024 [place] - [facility] (MEDICARE) Addison Peguero [id number] Addison Peguero 06/08/2024 1 [place] Addison Peguero [id number] Addison Peguero 05/12/2020 2 [employer] (MEDICARE SUPPLEMENT) Addison Peguero [id number] Addison Peguero Notes Date Note Type Note Provider Name and Address Organization Details Recorded Time 10/23/2023 text/html PT PRESENTS FOR CHRONIC CARE MANAGEMENT, DENIES ANY NEW ISSUES. IS COMPLIANT WITH MEDICATIONS Matthew Roberts MD [address] [place] [address], [phone], [facility] & [place] 10/23/2023 10:28:30 01/16/2024 text/html ROS as noted in the HPI Patient presents today requesting a prescription for [...] copy of his results. Matthew Roberts MD [address] [place] [address], [phone], [place] - [facility] & [place] 01/16/2024 14:19:30 01/29/2024 text/html patient presents for routine chronic care management. He denies any new issues at this time. Matthew Roberts MD [address] [place] [address], [phone], [facility] & [place] 01/29/2024 11:22:23 03/25/2024 text/html PT PRESENTS FOR CHRONIC CARE MANAGEMENT, DENIES ANY NEW ISSUES. IS COMPLIANT WITH MEDICATIONS Matthew Roberts MD [address] [place] [address], [phone], [place] [facility] & [place] 03/25/2024 09:55:51 07/09/2024 text/html ROS as noted in the HPI Patient presents today for routine follow-up. He states that he Needs refills on his medications. he also states that he broke his right wrist in April. Patient is under the care of He states that he fell Matthew Sokan, MD [address] [place] [address], [place], [phone], [facility] - [place] & [place] 07/09/2024 10:58:15
--- OUTSIDE RECORDS SUMMARY | 2025-06-15 12:53 | XMS_ITS | Clinical Summary ---
Author Organization [facility] Address [address] [id number] Care Team Providers Care U.[place]. Senator Name Role Phone Matthew Benavidez MD Primary Care Provider [phone] Allergies No known active allergies Medications aspirin 81 MG EC tablet aspirin 81 mg tablet Daily Active allopurinol (ZYLOPRIM) 100 MG tablet 12/27/2022 Active famotidine (PEPCID) 20 MG tablet 12/27/2022 Active lisinopril-hydr ochlorothiazide (PRINZIDE,ZESTO RETIC) 20-12.5 MG per tablet 12/23/2022 Activ e metFORMIN (GLUCOPHAGE) 1000 MG tablet 01/31/2023 Acti ve tamsulosin (FLOMAX) 0.4 MG capsule 24 hr capsule Daily. Active tadalafil (CIALIS) 20 MG tablet Every Other Day. Active Active Problems Problem Noted Date Diagnosed Date MEAGAN (obstructive sleep apnea) 04/04/2023 Essential hypertension 04/04/2023 Urolithiasis 07/05/2018 Diabetes mellitus Immunizations Immunization Administration Dates Next Due COVID-19 (MODERNA) 1st,2nd,3 rd Dose Monovalent 01/14/2021,12/17/2020 FLUAD TRI 65YR+ 09/13/2017 Fluzone High-Dose 65+yrs 09/08/2022,09/02/2021,1 Influenza Injectable Mdck Pf Quad 09/06/2018 Pneumococcal Conjugate 13-Valent (PCV13) 018 Family History Relation Name Status Comments Father Mother Alive Social History Tobacco Use Types Packs/Day Years Used Date Smoking Tobacco: Never Smokeless Tobacco: Never Alcohol Use Standard Drinks/Week Comments Never 0 (1 standard drink = 0.6 oz pur e alcohol) Abuse Screen Answer Date Recorded Unsafe at Home or Work/School Not on file Feels Threatened by Someone? Not on file 09/2023 Does Anyone Keep You from Co ntacting Others or Doint Things Outside the Home? Not on file 08/30/2023 Physical Sign of Abuse Present Not on file 1 Housing Stability Answer Date Recorded Current Living Arrangements Not on file 08/20 Potentially Unsafe Housing Conditions Not on king e 08/30/2023 Family and Community Support Answer Ronn e Recorded Help with Day-to-Day Activities Not on file 08/30/2023 Lonely or Isolated Not on file 08/30/2023 Employment Answer Date Recorded Do you want help finding or keeping work or a guanako b? Not on file 08/30/2023 Disabilities Answer Date Recorded Concentrating, Remembering, or Making Decisions Difficulty Not on file 08/30/2023 Doing Errands Independently Difficulty Not on fi le 08/30/2023 Education Answer Date Recorded Help with school or training? Not on file Preferred Language Not on file 08/30/2023 Sex and Gender Information Value Date Recorded Sex Assigned at Not on file Legal Sex Male 12:25 PM EST Gender Identity Not on file Sexual Orientation Not on file Last Filed Vital Signs Vital Sign Reading Time Taken Comments Blood Pressure 130/70 04/04/2023 12:56 PM EDT Pulse 92 04/04/2023 12:56 PM EDT Temperature - - Respiratory Rate - - Oxygen Saturation 97% 04/04/2023 12:56 PM EDT Inhaled Oxygen Concentration - - Weight 96.6 kg (213 lb) 04/04/2023 12:56 PM EDT Height 175.3 cm (5' 9 ) 04/04/2023 12:56 PM EDT Body Mass Index 31.45 04/04/2023 12:56 PM EDT Plan of Treatment Health Maintenance Due Date Last Done Comments DIABETIC EYE EXAM 1959 DIABETIC FOOT EXAM 1959 URINE MICROALBUMIN-CREATININ E RATIO (uACR) 1959 TDAP/TD VACCINES (1 - Tdap) 1968 COLOGUARD 1994 COLON CANCER SCREENING 5 YEA R SIGMOIDOSCOPY 1994 COLONOSCOPY 1994 [address] CANCER SCREENING 1994 CT COLONOGRAPHY 1994 FECAL OCCULT BLOOD TEST 1994 FIT Testing (1 year) 1994 ZOSTER VACCINE (1 of 2) 1999 AAA SCREEN ONCE 2014 Pneumococcal Vaccine 50+ (2 of 2 - PPSV23) 11/01/2018 09/06/2018 ANNUAL WELLNESS VISIT 04/04/2023 HEMOGLOBIN A1C 04/04/2023 HEPATITIS C SCREENING 04/04/2023 RSV Vaccine - Adults (1 - 1- dose 75+ series) 2024 COVID-19 Vaccine (3 - 2023-2 5 season) 2024 01/14/2021, 12/17/2020 INFLUENZA VACCINE 08/20/2025 09/08/2022, , 08/25/2020, Additional history exists Insurance MEDICARE A & B [employer] Care Teams [place]. Senator Relationship Specialty Start Date End Date Matthew Benavidez MD [address] [place] [address] PCP - General Emergency Medicine 04/04/23
--- OUTSIDE RECORDS SUMMARY | 2025-06-15 12:53 | XMS_ITS | Continuity of Care Document ---
Author Organization [place] - [place], [facility] Address [address] [place] [id number] Assessment Encounter Date Assessment Date Assessment LastModified by Organization Details LastModified Time 04/18/2025 04/18/2025 Change glipizide to jardiance as prescribed. Samples as packaged per sap mobility architect provided to patient today. Labs per plan below. Follow up in 1 month for recheck, sooner if needed. Not available 04/21/2025 09:44:20 Plan of Treatment Reminders Order Date Submit Date Provider Last Modified By Organization Details Last Modified Time Details Appointments SAME DAY ACCESS 2024 05:30P M Avel Samantha Not available Not available Not available FOLLOW UP 2024 11:30A M Avel, Samantha Not available Not available Not available Lab HbA1c (hemoglob in A1c), blood [address] [facility], [address] [place] [address], [phone], 04/18/2025 10:17:29 CMP, serum or plasma 2024 025 [place] [facility] ([place]), [address] [place] [address], [address], 04/19/2025 05:06:44 CBC w/ auto diff 2024 025 [place] [facility] ([place]), [address] [place] [address], [address], 04/19/2025 05:06:43 lipid panel, serum 2024 025 [place] [facility] ([place]), [address] [facility], [place], [address], 04/19/2025 05:06:45 Referral None recorded. Procedures None recorded. Surgeries None recorded. Imaging None recorded. Medication Orders Jardiance 10 mg tablet 2024 025 [facility], [address] [place], [address], 04/18/2025 10:18:12 pioglitaz one 15 mg tablet 2024 025 [facility], [address] [place], [address], 04/18/2025 14:22:17 Patient TargetsNo targets recorded. Patient Instructions Encounter Date Encounter Id Patient Instructions Last Modified By Organization Details Last Modified Time 04/18/2025 [id number] learning about type 2 diabetes Not available 04/18/2025 10:17:29 type 2 diabetes: care instructions Not available 04/18/2025 10:17:29 Reason for Referral None Reported. Results Created Date Observation Date Name Description Value Unit Range Abnormal Flag Note LastModifiedBy Organization Detail LastModifiedTime 03/21/2003/21/2025 urina lysis , dipst ick Leukocytes Negati ve Not Available [address], [address], 03/21/2025 17:43:51 03/21/20 25 03/21/2025 urina lysis , dipst ick Nitrite negati ve Not Available [address], [address], 03/21/2025 17:43:51 03/21/20 25 03/21/2025 urina lysis , dipst ick Urobilinogen .2 Not Available [address], [address], 03/21/2025 17:43:51 03/21/20 25 03/21/2025 urina lysis , dipst ick Protein 30 Not Available [address], [address], 03/21/2025 17:43:51 03/21/20 25 03/21/2025 urina lysis , dipst ick pH 5.5 Not Available [address], [address], 03/21/2025 17:43:51 03/21/2003/21/2025 urina lysis , dipst ick Blood Hemoly zed: Trace Not Available [address], [address], 03/21/2025 17:43:51 03/21/20 25 03/21/2025 urina lysis , dipst ick Specific [place] 1.025 Not Available [address], [address], 03/21/2025 17:43:51 03/21/20 25 03/21/2025 urina lysis , dipst ick Ketone Negati ve Not Available [address], [address], 03/21/2025 17:43:51 03/21/20 25 03/21/2025 urina lysis , dipst ick Bilirubin Negati ve Not Available [address], [address], 03/21/2025 17:43:51 03/21/20 25 03/21/2025 urina lysis , dipst ick Glucose Negati ve Not Available [address], [address], 03/21/2025 17:43:51 04/18/20 25 04/19/2025 CBC WITH DIFFE RENTI AL/PL ATELE T WBC 5.3 x10e3 /uL 3.4-10 .8 normal Not Available [facility] ([facility]) [address] [place], [address], 04/19/2025 05:06:43 04/18/20 25 04/19/2025 CBC WITH DIFFE RENTI AL/PL ATELE T RBC 4.07 x10e6 /uL 4.14-5 .80 below low normal Not Available [facility] ([facility]) [address] [place], [address], 04/19/2025 05:06:43 04/18/20 25 04/19/2025 CBC WITH DIFFE RENTI AL/PL ATELE T hemoglobin 12.5 g/dL 13.0-1 7.7 below low normal Not Available [facility] ([facility]) [address] [place], [address], 04/19/2025 05:06:43 04/18/2004/19/2025 CBC WITH DIFFE RENTI AL/PL ATELE T hematocrit 39.9 % 37.5-5 1.0 normal Not Available [facility] ([facility]) [address] [place], [address], 04/19/2025 05:06:43 04/18/2004/19/2025 CBC WITH DIFFE RENTI AL/PL ATELE T MCV 98 fL 79-97 above high normal Not Available [facility] ([facility]) [address] [place], [address], 04/19/2025 05:06:43 04/18/20 25 04/19/2025 CBC WITH DIFFE RENTI AL/PL ATELE T MCH 30.7 pg 26.6-3 3.0 normal Not Available [facility] ([facility]) [address] [facility], [place], [address], 04/19/2025 05:06:43 04/18/20 25 04/19/2025 CBC WITH DIFFE RENTI AL/PL ATELE T MCHC 31.3 g/dL 31.5-3 5.7 below low normal Not Available [facility] ([facility]) [address] [facility], [place], [address], 04/19/2025 05:06:43 04/18/20 25 04/19/2025 CBC WITH DIFFE RENTI AL/PL ATELE T RDW 12.5 % 11.6-1 5.4 Not Available [facility] ([facility]) [address] [facility], [place], [address], 04/19/2025 05:06:43 04/18/20 25 04/19/2025 CBC WITH DIFFE RENTI AL/PL ATELE T platelets 236 x10e3 /uL 150-45 0 normal Not Available [facility] ([facility]) [address] [facility], [place], [address], 04/19/2025 05:06:43 04/18/20 25 04/19/2025 CBC WITH DIFFE RENTI AL/PL ATELE T neutrophils 62 % not estab. normal Not Available [facility] ([facility]) [address] [facility], [place], [address], 04/19/2025 05:06:43 04/18/20 25 04/19/2025 CBC WITH DIFFE RENTI AL/PL ATELE T lymphs 25 % not estab. normal Not Available [facility] ([facility]) [address] [facility], [place], [address], 04/19/2025 05:06:43 04/18/20 25 04/19/2025 CBC WITH DIFFE RENTI AL/PL ATELE T monocytes 6 % not estab. normal Not Available [facility] ([facility]) [address] [facility], [place], [address], 04/19/2025 05:06:43 04/18/20 25 04/19/2025 CBC WITH DIFFE RENTI AL/PL ATELE T eos 6 % not estab. normal Not Available [facility] ([facility]) [address] [place], [address], 04/19/2025 05:06:43 04/18/20 25 04/19/2025 CBC WITH DIFFE RENTI AL/PL ATELE T basos 1 % not estab. normal Not Available [facility] ([facility]) [address] [place], [address], 04/19/2025 05:06:43 04/18/20 25 04/19/2025 CBC WITH DIFFE RENTI AL/PL ATELE T immature cells BULLET CASTING OPERATOR Not Available [facility] ([facility]) [address] [place], [address], 04/19/2025 05:06:43 04/18/20 25 04/19/2025 CBC WITH DIFFE RENTI AL/PL ATELE T neutrophils (absolute) 3.3 x10e3 /uL 1.4-7. 0 normal Not Available [facility] ([facility]) [address] [place], [address], 04/19/2025 05:06:43 04/18/20 25 04/19/2025 CBC WITH DIFFE RENTI AL/PL ATELE T lymphs (absolute) 1.3 x10e3 /uL 0.7-3. 1 normal Not Available [facility] ([facility]) [address] [place], [address], 04/19/2025 05:06:43 04/18/20 25 04/19/2025 CBC WITH DIFFE RENTI AL/PL ATELE T monocytes(ab solute) 0.3 x10e3 /uL 0.1-0. 9 normal Not Available [facility] ([facility]) [address] [place], [address], 04/19/2025 05:06:43 04/18/20 25 04/19/2025 CBC WITH DIFFE RENTI AL/PL ATELE T eos (absolute) 0.3 x10e3 /uL 0.0-0. 4 normal Not Available [facility] ([facility]) [address] [facility], [place], [address], 04/19/2025 05:06:43 04/18/20 25 04/19/2025 CBC WITH DIFFE RENTI AL/PL ATELE T baso (absolute) 0.1 x10e3 /uL 0.0-0. 2 normal Not Available [facility] ([facility]) [address] [facility], [place], [address], 04/19/2025 05:06:43 04/18/20 25 04/19/2025 CBC WITH DIFFE RENTI AL/PL ATELE T immature granulocytes 0 % not estab. Not Available [facility] ([facility]) [address] [facility], [place], [address], 04/19/2025 05:06:43 04/18/20 25 04/19/2025 CBC WITH DIFFE RENTI AL/PL ATELE T immature grans (abs) 0.0 x10e3 /uL 0.0-0. 1 Not Available [facility] ([facility]) [address] [facility], [place], [address], 04/19/2025 05:06:43 04/18/20 25 04/19/2025 CBC WITH DIFFE RENTI AL/PL ATELE T NRBC BULLET CASTING OPERATOR Not Available [facility] ([facility]) [address] [facility], [place], [address], 04/19/2025 05:06:43 04/18/20 25 04/19/2025 CBC WITH DIFFE RENTI AL/PL ATELE T hematology comments: BULLET CASTING OPERATOR Not Available [facility] ([facility]) [address] [facility], [place], [address], 04/19/2025 05:06:43 04/18/20 25 04/19/2025 COMP. METAB OLIC PANEL (14) glucose 121 mg/dL 70-99 above high normal Not Available [facility] ([facility]) [address] [place], [address], 04/19/2025 05:06:44 04/18/20 25 04/19/2025 COMP. METAB OLIC PANEL (14) BUN 35 mg/dL 8-27 above high normal Not Available [facility] ([facility]) [address] [place], [address], 04/19/2025 05:06:44 04/18/20 25 04/19/2025 COMP. METAB OLIC PANEL (14) creatinine 2.02 mg/dL 0.76-1 .27 above high normal Not Available [facility] ([facility]) [address] [place], [address], 04/19/2025 05:06:44 04/18/20 25 04/19/2025 COMP. METAB OLIC PANEL (14) eGFR 34 mL/mi n/1.7 3 >59 below low normal Not Available [facility] ([facility]) [address] [place], [address], 04/19/2025 05:06:44 04/18/20 25 04/19/2025 COMP. METAB OLIC PANEL (14) BUN/creatini ne ratio 17 10-24 normal Not Available [facility] ([facility]) [address] [place], [address], 04/19/2025 05:06:44 04/18/20 25 04/19/2025 COMP. METAB OLIC PANEL (14) sodium 142 mmol/ L 134-14 4 normal Not Available [facility] ([facility]) [address] [place], [address], 04/19/2025 05:06:44 04/18/20 25 04/19/2025 COMP. METAB OLIC PANEL (14) potassium 4.5 mmol/ L 3.5-5. 2 normal Not Available [facility] ([facility]) [address] [facility] [place], [address], 04/19/2025 05:06:44 04/18/20 25 04/19/2025 COMP. METAB OLIC PANEL (14) chloride 107 mmol/ L 96-106 above high normal Not Available [facility] ([facility]) [address] [facility], [place], [address], 04/19/2025 05:06:44 04/18/20 25 04/19/2025 COMP. METAB OLIC PANEL (14) carbon dioxide, total 17 mmol/ L 20-29 below low normal Not Available [facility] ([facility]) [address] [facility], [place], [address], 04/19/2025 05:06:44 04/18/20 25 04/19/2025 COMP. METAB OLIC PANEL (14) calcium 9.6 mg/dL 8.6-10 .2 normal Not Available [facility] ([facility]) [address] [facility] [place], [address], 04/19/2025 05:06:44 04/18/20 25 04/19/2025 COMP. METAB OLIC PANEL (14) protein, total 6.5 g/dL 6.0-8. 5 normal Not Available [facility] ([facility]) [address] [facility] [place], [address], 04/19/2025 05:06:44 04/18/20 25 04/19/2025 COMP. METAB OLIC PANEL (14) albumin 4.3 g/dL 3.8-4. 8 normal Not Available [facility] ([facility]) [address] [facility], [place], [address], 04/19/2025 05:06:44 04/18/20 25 04/19/2025 COMP. METAB OLIC PANEL (14) globulin, total 2.2 g/dL 1.5-4. 5 Not Available [facility] ([facility]) [address] [facility] [place], [address], 04/19/2025 05:06:44 04/18/20 25 04/19/2025 COMP. METAB OLIC PANEL (14) bilirubin, total 0.6 mg/dL 0.0-1. 2 normal Not Available [facility] ([facility]) [address] [facility] [place], [address], 04/19/2025 05:06:44 04/18/20 25 04/19/2025 COMP. METAB OLIC PANEL (14) alkaline phosphatase 71 IU/L 44-121 normal Not Available [facility] ([facility]) [address] [facility] [place], [address], 04/19/2025 05:06:44 04/18/20 25 04/19/2025 COMP. METAB OLIC PANEL (14) AST (SGOT) 23 IU/L 0-40 normal Not Available [facility] ([facility]) [address] [facility] [place], [address], 04/19/2025 05:06:44 04/18/20 25 04/19/2025 COMP. METAB OLIC PANEL (14) ALT (SGPT) 17 IU/L 0-44 normal Not Available [facility] ([facility]) [address] [facility] [place], [address], 04/19/2025 05:06:44 04/18/20 25 04/19/2025 LIPID PANEL cholesterol, total 139 mg/dL 100-19 9 normal Not Available [facility] ([facility]) [address] [facility] [place], [address], 04/19/2025 05:06:45 04/18/20 25 04/19/2025 LIPID PANEL triglyceride s 60 mg/dL 0-149 normal Not Available [facility] ([facility]) [address] [place], [address], 04/19/2025 05:06:45 04/18/20 25 04/19/2025 LIPID PANEL HDL cholesterol 57 mg/dL >39 normal Not Available [facility] ([facility]) [address] [facility] [place], [address], 04/19/2025 05:06:45 04/18/20 25 04/19/2025 LIPID PANEL VLDL cholesterol sharona 13 mg/dL 5-40 Not Available [facility] ([facility]) [address] [place], [address], 04/19/2025 05:06:45 04/18/20 25 04/19/2025 LIPID PANEL LDL chol calc ([facility]) 69 mg/dL 0-99 Not Available [facility] ([facility]) [address] [place], [address], 04/19/2025 05:06:45 04/18/20 25 04/19/2025 LIPID PANEL LDL calc comment: BULLET CASTING OPERATOR Not Available [facility] ([facility]) [address] [place], [address], 04/19/2025 05:06:45 04/18/20 25 04/24/2025 IRON AND TIBC iron bind.cap.(TI BC) 300 ug/dL 250-45 0 normal Not Available [facility] ([facility]) [address] [place], [address], 04/24/2025 04:07:12 04/18/20 25 04/24/2025 IRON AND TIBC UIBC 183 ug/dL 111-34 3 normal Not Available [facility] ([facility]) [address] [place], [address], 04/24/2025 04:07:12 04/18/20 25 04/24/2025 IRON AND TIBC iron 117 ug/dL 38-169 normal Not Available [facility] ([facility]) [address] [facility], [place], [address], 04/24/2025 04:07:12 04/18/20 25 04/24/2025 IRON AND TIBC iron saturation 39 % 15-55 normal Not Available [facility] ([facility]) [address] [facility], [place], [address], 04/24/2025 04:07:12 04/18/20 25 04/23/2025 WRITT EN AUTHO RIZAT ION written authorizatio n Commen t Writt en Autho rizat ion Recei noel. Autho rizat ion recei noel from [employer] [facility] 04-23 Logge d by Sandeep Nieto an Not Available [facility] ([facility]) [address] [facility], [place], [address], 04/24/2025 04:07:12 04/18/20 25 04/18/2025 HbA1c (hemo globi n A1c), blood HbA1c 6.7 Not Available [address], [place], [address], 04/18/2025 09:43:05 05/07/20 25 05/05/2025 XR, abdom en No observ ation record ed. [facility] [address] [facility] [address], [place], [address], 05/07/2025 09:42:29 05/16/20 25 05/16/2025 XR, chest No observ ation record ed. [email or web address] [facility] [address], [place], [address], 05/19/2025 09:20:50 05/16/20 25 05/16/2025 CT, angio gram, chest , w/o contr ast No observ ation record ed. [email or web address] [facility] [address], [place], [address], 05/19/2025 09:41:06 05/16/20 25 05/16/2025 CT, head + brain , w/o contr ast No observ ation record ed. [address], [place], [address], 05/19/2025 09:40:47 05/16/20 25 05/16/2025 CT, lumba r spine , w/wo contr ast No observ ation record ed. [address], [place], [address], 05/19/2025 09:40:27 05/16/20 25 05/16/2025 cardi ac stres s test No observ ation record ed. [address], [place], [address], 05/29/2025 08:44:47 05/16/20 25 05/16/2025 elect rasta worley am, routi ne ECG, 12 leads min No observ ation record ed. [address], [place], [address], 05/29/2025 08:44:14 05/23/20 25 05/23/2025 XR, abdom en No observ ation record ed. [address] (Radiology) [address] , [place], [address], 05/29/2025 08:42:01 05/26/[address], cervi sharona spine , w/o contr ast No observ ation record ed. [email or web address] Not Available 05/2025 14:02:24 Result Notes None recorded. Problems Name Problem SNOMED Code Status Onset Date Resolution Date Notes Provider Name and Address Organization Details Recorded Time Infection of toe 877374273 Completed 202310/31/2024 Samantha Vallecillo NP [address] [facility], [place], [address] , [facility] [employer] 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 4 12:09:13 Type 2 diabetes mellitus without complicatio n 445717301 Completed 202303/21/2025 Samantha Vallecillo NP [address] [place] [address], [address], [employer] 5 10:01:28 Gastroesoph ageal reflux disease without esophagitis 738241814 Active 2023 Samantha Vallecillo NP [address] [place] [address], [address], [employer] 4 12:09:07 Chronic gouty arthritis 33294942 Active 2023 Samantah Vallecillo NP [address] [place] [address], [address], [employer] 4 12:09:05 Body mass index 30+ - obesity 394365840 Active 2023 Samantha Vallecillo NP [address] [place] [address], [address], [employer] 4 12:09:30 Hypertensiv e disorder 46448702 Active 2023 Samantha Vallecillo NP [address] [place] [address], [address], [employer] 4 12:09:25 Hyperlipide miguel 71457266 Active 2024 Samantha Vallecillo NP [address] [place] [address], [address], [employer] 5 09:07:34 Adjustment disorder with depressed mood 75778112 Active 2024 Samantha Vallecillo NP [address] [place] [address], [address], [employer] 5 09:07:38 Chronic kidney disease 357694537 Active 2024 Samantha Vallecillo, BULLET CASTING OPERATOR [address] [place] [address], [address], [employer] 09:59:50 Type 2 diabetes mellitus 03500514 Active 2024 Samantha Vallecillo, BULLET CASTING OPERATOR [address] [place] [address], [address], [employer] 5 10:01:21 Dizziness 808151222 Active 2024 Samantha Vallecillo, BULLET CASTING OPERATOR [address] [place] [address], [address], [employer] 10:13:57 Anemia 230830539 Active 2024 Samantha Vallecillo, BULLET CASTING OPERATOR [address] [place] [address], [address], [employer] 13:03:12 Kidney stone 14971167 Active 2024 Samantha Vallecillo, BONI [address] [place] [address], [address], [employer] 16:08:49 Chronic low back pain 242844622 Active 2024 Samantha Vallecillo NP [address] [place] [address], [address], [employer] 13:48:49 Urinary incontinenc e 547673965 Active 2024 Samantha Vallecillo NP [address] [place] [address], [address], [employer] 14:07:05 Problem Notes None recorded. Procedures Surgical History Date Name Laterality Status Provider Name and Address Organization Details Recorded Time complete repair of rotator cuff completed [employer] 07/03/2024 12:06:07 procedure on nerve completed [employer] 07/03/2024 12:06:55 total knee replacement completed [employer] 07/03/2024 12:07:10 Appendectomy completed Griselda Powell [employer]. 07/03/2024 12:07:17 total replacement of hip completed Griselda Powell [employer]. 07/03/2024 12:07:28 Imaging Results None recorded. Procedure [...] Updated DateTime 5 175.26 cm 31.2 kg/m2 16860.0 9 g 70 /min 98 % 98 % 139/79 mm[Hg] Carolyn Ceja [employer] 5 09:42:09 Social History Question Answer Notes LastModified by Organizat ion Details LastModified Time Tobacco Smoking Status Never Smoker Griselda yeung, [employer]. 07/03/2024 12:05:06 Is Your Home Air Conditioned? [...] You Had Close Contact With A Laboratory-[facility] COVID-19 While That Case Was Ill? No [...] Of Your Most Recent Tobacco Screening? 05/30/2025 [email or web address] Information not available 05/30/2025 What Is Your Relationship Status? Information not available 07/03/2024 Do You Use Your Seat Belt Or Car Seat Routinely? Yes Information not available 07/03/2024 Are You Sexually Active? No [email or web address] Information not available 10/31/2024 Do You Have Smoke And Carbon Monoxide Detectors In Your Home? Yes Information not available 07/03/2024 Are You Passively Exposed To Smoke? No Information no t available 07/03/2024 Are There Any Smokers In Your House? No Information not available 07/03/2024 Do You Participate In Social Media? Yes [email or web address] Information not available 10/31/2024 Has Tobacco Cessation Counseling Been Provided? No Information not available 07/03/2024 Have You Recently Traveled Abroad? No Information not available 07/03/2024 Do You Have Difficulty Walking Or Climbing Stairs? Yes Information not available 07/03/2024 Are You Currently In School? No [email or web address] Information not available 10/31/2024 Do You Have Any Dietary Restrictions? Yes [email or web address] Information not available 10/31/2024 Sex: Male Functional Status Question Answer Note LastModified by Organizat ion Details LastModified Time Do you use any illicit or recreational drugs? No Information not available 07/03/2024 Do you or have you ever used any other forms of tobacco or nicotine? No [email or web address] Information not available 10/31/2024 What is your level of alcohol consumption? None Information not available 07/03/2024 Are you currently employed? No Information not available 07/03/2024 Do you have transportation difficulties? No [email or web address] Information not available 10/31/2024 Are you able [...] anxious, or unable to sleep at night)? [id number] [email or web address] Information not available 10/31/2024 Do you have [...] PF 4 completed Samantha Vallecillo NP [address] [place], [address], [employer] 11/02/2024 09:27:35 zoster recombinant 5 completed Samantha Vallecillo NP [address] [place], [address], [employer] 03/05/2025 13:28:44 Influenza, adjuvanted, trivalent, PF 7 completed Griselda yeung, [employer] 07/03/2024 11:45:29 Influenza, MDCK, quadrivalent, PF 8 completed Griselda yeung, [employer] 07/03/2024 11:45:29 Influenza, high-dose, quadrivalent, PF 0 completed Griselda yeung, [employer] 07/03/2024 11:45:30 Influenza, high-dose, quadrivalent, PF 1 completed Griselda [place] null, [employer] 07/03/2024 11:45:30 Influenza, high-dose, quadrivalent, PF 2 completed Griselda [place] null, [employer] 07/03/2024 11:45:30 Influenza, high-dose, quadrivalent, PF 3 completed Griselda Montag[place]ly null, [employer] 07/03/2024 11:45:30 COVID-19, mRNA, LNP-S, PF, 100 mcg/0.5mL dose or 50 mcg/0.25mL dose 1 completed Griselda Montaguelly null, [employer] 07/03/2024 11:45:30 COVID-19, mRNA, LNP-S, PF, 100 mcg/0.5mL dose or 50 mcg/0.25mL dose 1 completed Griselda Jolly null, [employer] 07/03/2024 11:45:30 Pneumococcal conjugate PCV 13 8 completed Griselda Gonzalezy null, [employer] 07/03/2024 11:45:30 Past Encounters Encounter ID Performer Location Encounter Start Date Encounter Closed Date Diagnosis/Indication Diagnosis SNOMED-CT Code Diagnosis ICD10 Code Diagnosis Note [id number] [place] [address] 03/21/2025 09:21:29 03/21/2025 10:43:45 Type 2 diabetes mellitus 22187469 E11.22 N18.32 Hyperlipidemia 74085762 E78.5 Hypertensive disorder 38 296067 I10 [id number] Samantha Vallecillo NP [place] [id number] 04/18/2025 09:22:01 04/18/2025 10:38:04 Type 2 diabetes mellitus 01141518 E11.22 N18.32 Dizziness 119871694 R42 Hyperlipidemia 51993504 E78.5 Chronic ki dney disease [id number] N18.9 Health Concerns Section Related Observation LastModified by Organization Detai ls LastModified Time None Recorded Concern Status LastModified by Organization Details LastModified Time None Recorded Payers Encounter Date Sequence Insurance Name Policy Number Policy Muhammad Covered Member ID Muhammad Member ID Guarantor Name 04/18/2025 2 [employer] (MEDICARE SUPPLEMENT) Addison Boswell Sudhir [id number] Addison Sudhir 04/18/2025 1 [place] Addison Boswell Sudhir [id number] Addison Sudhir Notes Date Note Type Note Provider Name [...] well, still working on getting her into half-way. Samantha Vallecillo NP [address] [place] [address], [place], [address], [facility] [employer] 04/21/2025 09:44:42
--- OUTSIDE RECORDS SUMMARY | 2025-06-15 12:53 | XMS_ITS | Clinical Summary ---
Author Organization [email or web address] ([place], [place], [place], [place]) Address [address] [place] [address] Care Team Providers Care Telegraphic Service Dispatcher Name Role Phone AvelSamantha brantley Yennifer PLATA Primary Care Provider [phone] Allergies No known active allergies Medications aspirin [...] - 05/05/2025 11:59 PM EDT Hospital Encounter [facility] [place] [address] [place] [address] [address] [place] [address] Derek Madrigal MD Calculus of kidney Discharge Disposition: Home or Self Care 05/05/2025 Outside Orders [facility] [address] [place] [address] Derek Madrigal MD Calculus of kidney (Primary Dx) from Last 3 Months Social History Tobacco Use Types Packs/Day Years Used Date Smoking Tobacco: Never Assessed Sex and Gender Information Value Date Recorded Sex Assigned at Not on file Legal 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 Gender Identity Not on file Sexual Orientation [...] 1950 Sigmoidoscopy 1949 Diabetic Eye Exam 1959 Depression Screening (12+) 1961 Tobacco Cessation [...] (Zoster) (2 of 2) 04/23/20252024 Influenza Vaccine (#1) 2025 , 09/29/2023, 09/08/2022, Additional history exists Procedures Procedure Name Priority Date/Time Associated Diagnosis Comments XR ABDOMEN/KUB 1 VW STAT 05/05/2025 3 :28 PM EDT Calculus of kidney from Last 3 Months Results * X-ray [...] 3 Months Insurance [facility] Advance Directives For more information, please contact: [phone] * Full Code (Latest Code Status on File) Date Activated Date Inactivated Comments 02/13/2025 8:51 AM 02/13/2025 3:42 PM Care Teams Telegraphic Service Dispatcher Relationship Specialty Start Date End Date Samantha Vallecillo NP [address] [place] [address] PCP - General Nurse Practitioner 02/13/25
--- OUTSIDE RECORDS SUMMARY | 2025-06-15 12:53 | XMS_ITS | Referral Summary ---
Author Organization [employer] ([place], [place], [place], [place]) Address [address] [place] [address] Care Team Providers Care Cook Roast Name Role Phone AvelSamantha brantley Yennifer PLATA Primary Care Provider [phone] Encounters Date Type Department Care Team Description 05/05/2025 3:23 PM EDT - 05/05/2025 11:59 PM EDT Hospital Encounter [facility] [place] [address] [place] [address] Derek Madrigal MD Calculus of kidney Discharge Disposition: Home or Self Care 05/05/2025 Outside Orders [facility] Breast Imaging [address] [place] [address] Derek Madrigal MD Calculus of kidney (Primary Dx) from Last 3 Months Allergies No known [...] on file 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
--- OUTSIDE RECORDS SUMMARY | 2025-06-15 12:53 | XMS_ITS | Continuity of Care Document ---
Author Organization [employer] [facility] [employer], [facility] Address [address] [place] [id number] Assessment Encounter Date Assessment Date Assessment LastModified by Organization Details LastModified Time 05/16/2025 05/16/2025 I called patient and spoke [...] Dr. Scott /Fei office on 05/29. Power [phone] (daughter) Not available 05/16/2025 19:21:13 Plan of Treatment Reminders Order Date Submit Date Provider Last Modified By Organization Details Last Modified Time Details Appointments SAME DAY ACCESS 2024 05:30P M Samantha Vallecillo Not available Not available Not available FOLLOW UP 30 2024 11:30A M Avel Samantha Not available Not available Not available Lab HbA1c (hemoglo bin A1c), blood 2024 025 [facility], [address] [place] [address], [place], [address], 05/16/2025 14:15:14 Referral None recorded . Procedures None recorded . Surgeries None recorded . Imaging None recorded . Medication Orders None recorded . Patient TargetsNo targets recorded. Patient InstructionsNo instructions recorded. Reason for Referral None Reported. Results Created Date Observation Date Name Description Value Unit Range Abnormal Flag Note LastModifiedBy Organization Detail LastModifiedTime 04/18/20 25 04/19/2025 CBC WITH DIFFE RENTI AL/PL ATELE T WBC 5.3 x10e3 /uL 3.4-10 .8 normal Not Available [facility] ([facility]) [address] [place], [address], 04/19/2025 05:06:43 04/18/20 25 04/19/2025 CBC WITH DIFFE RENTI AL/PL ATELE T RBC 4.07 x10e6 /uL 4.14-5 .80 below low normal Not Available [facility] ([facility]) [address] [place], [address], 04/19/2025 05:06:43 04/18/20 25 04/19/2025 CBC WITH DIFFE RENTI AL/PL ATELE T hemoglobin 12.5 g/dL 13.0-1 7.7 below low normal Not Available [facility] ([facility]) [address] [place], [address], 04/19/2025 05:06:43 04/18/20 25 04/19/2025 CBC WITH DIFFE RENTI AL/PL ATELE T hematocrit 39.9 % 37.5-5 1.0 normal Not Available [facility] ([facility]) [address] [place], [address], 04/19/2025 05:06:43 04/18/20 25 04/19/2025 CBC WITH DIFFE RENTI AL/PL ATELE T MCV 98 fL 79-97 above high normal Not Available [facility] ([facility]) [address] [place], [address], 04/19/2025 05:06:43 04/18/20 25 04/19/2025 CBC WITH DIFFE RENTI AL/PL ATELE T MCH 30.7 pg 26.6-3 3.0 normal Not Available [facility] ([facility]) [address] [facility], [place], [address], 04/19/2025 05:06:43 04/18/20 25 04/19/2025 CBC WITH DIFFE RENTI AL/PL ATELE T MCHC 31.3 g/dL 31.5-3 5.7 below low normal Not Available [facility] ([facility]) [address] [facility], [place], [address], 04/19/2025 05:06:43 04/18/20 25 04/19/2025 CBC WITH DIFFE RENTI AL/PL ATELE T RDW 12.5 % 11.6-1 5.4 Not Available [facility] ([facility]) [address] [facility], [place], [address], 04/19/2025 05:06:43 04/18/20 25 04/19/2025 CBC WITH DIFFE RENTI AL/PL ATELE T platelets 236 x10e3 /uL 150-45 0 normal Not Available [facility] ([facility]) [address] [place], [address], 04/19/2025 05:06:43 04/18/20 25 04/19/2025 CBC WITH DIFFE RENTI AL/PL ATELE T neutrophils 62 % not estab. normal Not Available [facility] ([facility]) [address] [place], [address], 04/19/2025 05:06:43 04/18/20 25 04/19/2025 CBC WITH DIFFE RENTI AL/PL ATELE T lymphs 25 % not estab. normal Not Available [facility] ([facility]) [address] [place], [address], 04/19/2025 05:06:43 04/18/20 25 04/19/2025 CBC WITH DIFFE RENTI AL/PL ATELE T monocytes 6 % not estab. normal Not Available [facility] ([facility]) [address] [place], [address], 04/19/2025 05:06:43 04/18/20 25 04/19/2025 CBC WITH DIFFE RENTI AL/PL ATELE T eos 6 % not estab. normal Not Available [facility] ([facility]) [address] [place], [address], 04/19/2025 05:06:43 04/18/20 25 04/19/2025 CBC WITH DIFFE RENTI AL/PL ATELE T basos 1 % not estab. normal Not Available [facility] ([facility]) [address] [place], [address], 04/19/2025 05:06:43 04/18/20 25 04/19/2025 CBC WITH DIFFE RENTI AL/PL ATELE T immature cells HUMAN RESOURCES DESIGNATE Not Available [facility] ([facility]) [address] [place], [address], 04/19/2025 05:06:43 04/18/20 25 04/19/2025 CBC WITH DIFFE RENTI AL/PL ATELE T neutrophils (absolute) 3.3 x10e3 /uL 1.4-7. 0 normal Not Available [facility] ([facility]) [address] [place], [address], 04/19/2025 05:06:43 04/18/20 25 04/19/2025 CBC WITH DIFFE RENTI AL/PL ATELE T lymphs (absolute) 1.3 x10e3 /uL 0.7-3. 1 normal Not Available [facility] ([facility]) [address] [place], [address], 04/19/2025 05:06:43 04/18/20 25 04/19/2025 CBC WITH DIFFE RENTI AL/PL ATELE T monocytes(ab solute) 0.3 x10e3 /uL 0.1-0. 9 normal Not Available [facility] ([facility]) [address] [place], [address], 04/19/2025 05:06:43 04/18/20 25 04/19/2025 CBC WITH DIFFE RENTI AL/PL ATELE T eos (absolute) 0.3 x10e3 /uL 0.0-0. 4 normal Not Available [facility] ([facility]) [address] [facility], [place], [address], 04/19/2025 05:06:43 04/18/20 25 04/19/2025 CBC WITH DIFFE RENTI AL/PL ATELE T baso (absolute) 0.1 x10e3 /uL 0.0-0. 2 normal Not Available [facility] ([facility]) [address] [facility], [place], [address], 04/19/2025 05:06:43 04/18/20 25 04/19/2025 CBC WITH DIFFE RENTI AL/PL ATELE T immature granulocytes 0 % not estab. Not Available [facility] ([facility]) [address] [facility], [place], [address], 04/19/2025 05:06:43 04/18/20 25 04/19/2025 CBC WITH DIFFE RENTI AL/PL ATELE T immature grans (abs) 0.0 x10e3 /uL 0.0-0. 1 Not Available [facility] ([facility]) [address] [place], [address], 04/19/2025 05:06:43 04/18/20 25 04/19/2025 CBC WITH DIFFE RENTI AL/PL ATELE T NRBC HUMAN RESOURCES DESIGNATE Not Available [facility] ([facility]) [address] [place], [address], 04/19/2025 05:06:43 04/18/20 25 04/19/2025 CBC WITH DIFFE RENTI AL/PL ATELE T hematology comments: HUMAN RESOURCES DESIGNATE Not Available [facility] ([facility]) [address] [place], [address], 04/19/2025 05:06:43 04/18/20 25 04/19/2025 COMP. METAB OLIC PANEL (14) glucose 121 mg/dL 70-99 above high normal Not Available [facility] ([facility]) [address] [place], [address], 04/19/2025 05:06:44 04/18/20 25 04/19/2025 COMP. METAB OLIC PANEL (14) BUN 35 mg/dL 8-27 above high normal Not Available [facility] ([facility]) [address] [place], [address], 04/19/2025 05:06:44 04/18/20 25 04/19/2025 COMP. METAB OLIC PANEL (14) creatinine 2.02 mg/dL 0.76-1 .27 above high normal Not Available [facility] ([facility]) [address] [place], [address], 04/19/2025 05:06:44 04/18/20 25 04/19/2025 COMP. METAB OLIC PANEL (14) eGFR 34 mL/mi n/1.7 3 >59 below low normal Not Available [facility] ([facility]) [address] [place], [address], 04/19/2025 05:06:44 04/18/20 25 04/19/2025 COMP. METAB OLIC PANEL (14) BUN/creatini ne ratio 17 10-24 normal Not Available [facility] ([facility]) [address] [place], [address], 04/19/2025 05:06:44 04/18/20 25 04/19/2025 COMP. METAB OLIC PANEL (14) sodium 142 mmol/ L 134-14 4 normal Not Available [facility] ([facility]) [address] [place], [address], 04/19/2025 05:06:44 05/30/20 25 04/19/2025 COMP. METAB OLIC PANEL (14) potassium 4.5 mmol/ L 3.5-5. 2 normal Not Available [facility] ([facility]) [address] [place], [address], 04/19/2025 05:06:44 04/18/20 25 04/19/2025 COMP. METAB OLIC PANEL (14) chloride 107 mmol/ L 96-106 above high normal Not Available [facility] ([facility]) [address] [place], [address], 04/19/2025 05:06:44 04/18/20 25 04/19/2025 COMP. METAB OLIC PANEL (14) carbon dioxide, total 17 mmol/ L 20-29 below low normal Not Available [facility] ([facility]) [address] [place], [address], 04/19/2025 05:06:44 04/18/20 25 04/19/2025 COMP. METAB OLIC PANEL (14) calcium 9.6 mg/dL 8.6-10 .2 normal Not Available [facility] ([facility]) [address] [place], [address], 04/19/2025 05:06:44 04/18/20 25 04/19/2025 COMP. METAB OLIC PANEL (14) protein, total 6.5 g/dL 6.0-8. 5 normal Not Available [facility] ([facility]) [address] [place], [address], 04/19/2025 05:06:44 04/18/20 25 04/19/2025 COMP. METAB OLIC PANEL (14) albumin 4.3 g/dL 3.8-4. 8 normal Not Available [facility] ([facility]) [address] [place], [address], 04/19/2025 05:06:44 04/18/20 25 04/19/2025 COMP. METAB OLIC PANEL (14) globulin, total 2.2 g/dL 1.5-4. 5 Not Available [facility] ([facility]) [address] [place], [address], 04/19/2025 05:06:44 04/18/20 25 04/19/2025 COMP. METAB OLIC PANEL (14) bilirubin, total 0.6 mg/dL 0.0-1. 2 normal Not Available [facility] ([facility]) [address] [facility] [place], [address], 04/19/2025 05:06:44 04/18/20 25 04/19/2025 COMP. METAB OLIC PANEL (14) alkaline phosphatase 71 IU/L 44-121 normal Not Available [facility] ([facility]) [address] [place], [address], 04/19/2025 05:06:44 04/18/20 25 04/19/2025 COMP. METAB OLIC PANEL (14) AST (SGOT) 23 IU/L 0-40 normal Not Available [facility] ([facility]) [address] [place], [address], 04/19/2025 05:06:44 04/18/20 25 04/19/2025 COMP. METAB OLIC PANEL (14) ALT (SGPT) 17 IU/L 0-44 normal Not Available [facility] ([facility]) [address] [place], [address], 04/19/2025 05:06:44 04/18/20 25 04/19/2025 LIPID PANEL cholesterol, total 139 mg/dL 100-19 9 normal Not Available [facility] ([facility]) [address] [place], [address], 04/19/2025 05:06:45 04/18/20 25 04/19/2025 LIPID PANEL triglyceride s 60 mg/dL 0-149 normal Not Available [facility] ([facility]) [address] [place], [address], 04/19/2025 05:06:45 04/18/20 25 04/19/2025 LIPID PANEL HDL cholesterol 57 mg/dL >39 normal Not Available [facility] ([facility]) [address] [place], [address], 04/19/2025 05:06:45 04/18/20 25 04/19/2025 LIPID PANEL VLDL cholesterol sharona 13 mg/dL 5-40 Not Available [facility] ([facility]) [address] [place], [address], 04/19/2025 05:06:45 04/18/20 25 04/19/2025 LIPID PANEL LDL chol calc ([facility]) 69 mg/dL 0-99 Not Available [facility] ([facility]) [address] [place], [address], 04/19/2025 05:06:45 04/18/20 25 04/19/2025 LIPID PANEL LDL calc comment: HUMAN RESOURCES DESIGNATE Not Available [facility] ([facility]) [address] [place], [address], 04/19/2025 05:06:45 04/18/20 25 04/24/2025 IRON AND TIBC iron bind.cap.(TI BC) 300 ug/dL 250-45 0 normal Not Available [facility] ([facility]) [address] [place], [address], 04/24/2025 04:07:12 04/18/20 25 04/24/2025 IRON AND TIBC UIBC 183 ug/dL 111-34 3 normal Not Available [facility] ([facility]) [address] [place], [address], 04/24/2025 04:07:12 04/18/20 25 04/24/2025 IRON AND TIBC iron 117 ug/dL 38-169 normal Not Available [facility] ([facility]) [address] [facility], [place], [address], 04/24/2025 04:07:12 04/18/20 25 04/24/2025 IRON AND TIBC iron saturation 39 % 15-55 normal Not Available [facility] ([facility]) [address] [facility], [place], [address], 04/24/2025 04:07:12 04/18/20 25 04/23/2025 WRITT EN AUTHO RIZAT ION written authorizatio n Commen t Writt en Autho rizat ion Recei noel. Autho rizat ion recei noel from [facility] [address] 04-23 Logge d by Sandeep Nieto an Not Available [facility] ([facility]) [address] [facility], [place], [address], 04/24/2025 04:07:12 04/18/20 25 04/18/2025 HbA1c (hemo globi n A1c), blood HbA1c 6.7 Not Available [address], [address], 04/18/2025 09:43:05 05/16/20 25 05/16/2025 HbA1c (hemo globi n A1c), blood HbA1c 6.8 Not Available [address], [address], 05/16/2025 13:26:07 05/07/20 25 05/05/2025 XR, abdom en No observ ation record ed. [facility] [address], [place], [address], 05/07/2025 09:42:29 05/16/20 25 05/16/2025 XR, chest No observ ation record ed. [email or web address] [facility] [address], [place], [address], 05/19/2025 09:20:50 05/16/20 25 05/16/2025 CT, angio gram, chest , w/o contr ast No observ ation record ed. [address], [place], [address], 05/19/2025 09:41:06 05/16/20 25 05/16/2025 CT, head + brain , w/o contr ast No observ ation record ed. [address], [place], [place], [address], 05/19/2025 09:40:47 05/16/20 25 05/16/2025 CT, lumba r spine , w/wo contr ast No observ ation record ed. [address], [place], [address], 05/19/2025 09:40:27 05/16/20 25 05/16/2025 cardi ac stres s test No observ ation record ed. [address], [place], [place], [address], 05/29/2025 08:44:47 05/16/20 25 05/16/2025 elect abnerar diogr am, routi ne ECG, 12 leads min No observ ation record ed. [address], [place], [address], 05/29/2025 08:44:14 05/23/20 25 05/23/2025 XR, abdom en No observ ation record ed. [address] (Radiology) [address] [place], [address], 05/29/2025 08:42:01 05/26/20 CT, cervi sharona spine , w/o contr ast No observ ation record ed. [email or web address] Not Available 05/2025 14:02:24 Result Notes None recorded. Problems Name Problem SNOMED Code Status Onset Date Resolution Date Notes Provider Name and Address Organization Details Recorded Time Infection of toe 576617360 Completed 202310/31/2024 Samantha Vallecillo NP [address] [place] [address], [address], [employer] 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 4 12:09:13 Type 2 diabetes mellitus without complicatio n 346888856 Completed 202303/21/2025 Samantha Vallecillo NP [address] [place] [address], [address], [employer] 5 10:01:28 Gastroesoph ageal reflux disease without esophagitis 649514765 Active 2023 Samantha Vallecillo NP [address] [place] [address], [address], [employer] 4 12:09:07 Chronic gouty arthritis 41358008 Active 2023 Samantha Vallecillo NP [address] [place] [address], [address], [employer] 4 12:09:05 Body mass index 30+ - obesity 070429437 Active 2023 Samantha Vallecillo NP [address] [place] [address], [address], [employer] 4 12:09:30 Hypertensiv e disorder 63533601 Active 2023 Samantha Vallecillo NP [address] [place] [address], [address], [employer] 4 12:09:25 Hyperlipide miguel 09041967 Active 2024 Samantha Vallecillo NP [address] [place] [address], [address], [employer] 5 09:07:34 Adjustment disorder with depressed mood 45855043 Active 2024 Samantha Vallecillo NP [address] [place] [address], [address], [employer] 5 09:07:38 Chronic kidney disease 466802550 Active 2024 Samantha Vallecillo NP [address] [place] [address], [address], [employer] 5 09:59:50 Type 2 diabetes mellitus 54393038 Active 2024 Samantha Vallecillo NP [address] [place] [address], [address], [employer] 5 10:01:21 Dizziness 257586780 Active 2024 Samantha Vallecillo NP [address] [place] [address], [address], [employer] 10:13:57 Anemia 111414240 Active 2024 Samantha Vallecillo NP [address] [place] [address], [address], [employer] 13:03:12 Kidney stone 51873793 Active 2024 Samantha Vallecillo NP [address] [place] [address], [address], [employer] 5 16:08:49 Chronic low back pain 595597675 Active 2024 Saamntha Vallecillo NP [address] [place] [address], [address], [employer] 5 13:48:49 Urinary incontinenc e 730324401 Active 2024 Samantha Vallecillo NP [address] [place] [address], [address], [employer] 14:07:05 Problem Notes None recorded. Procedures Surgical History Date Name Laterality Status Provider Name and Address Organization Details Recorded Time complete repair of rotator cuff completed [facility]2. 07/03/2024 12:06:07 procedure on nerve completed [facility]. 07/03/2024 12:06:55 total knee replacement completed [facility]. 07/03/2024 12:07:10 Appendectomy completed [facility]. 07/03/2024 12:07:17 total replacement of hip completed [facility]. 07/03/2024 12:07:28 Imaging Results None recorded. Procedure [...] and Address Organization Details Last Updated DateTime 175.26 cm 30.6 kg/m2 40560.3 2 g 106 /min 94 % 94 % 124/77 mm[Hg] Carolyn Ceja [employer]. 13:15:48 Social History Question Answer Notes LastModified by Organizat ion Details LastModified Time Tobacco Smoking Status Never Smoker Griselda yeung, [employer] 07/03/2024 12:05:06 Is Your Home Air [...] Of Your Most Recent Tobacco Screening? 05/30/2025 [email or web address] Information not available 05/30/2025 What Is Your Relationship Status? Information not available 07/03/2024 Do You Use Your Seat Belt Or Car Seat Routinely? Yes Information not available 07/03/2024 Are You Sexually Active? No [email or web address] Information not available 10/31/2024 Do You Have Smoke And Carbon Monoxide Detectors In Your Home? Yes Information not available 07/03/2024 Are You Passively Exposed To Smoke? No Information no t available 07/03/2024 Are There Any Smokers In Your House? No Information not available 07/03/2024 Do You Participate In Social Media? Yes Information not available 10/31/2024 Has Tobacco Cessation Counseling Been Provided? No Information not available 07/03/2024 Have You Recently Traveled Abroad? No Information not available 07/03/2024 Do You Have Difficulty Walking Or Climbing Stairs? Yes Information not available 07/03/2024 Are You Currently In School? No [email or web address] Information not available 10/31/2024 Do You Have Any Dietary Restrictions? Yes Information not available 10/31/2024 Sex: Male Functional Status Question Answer Note LastModified by Organ[employer]at [employer] Details LastModified Time Do you use any illicit or recreational drugs? No Information not available 07/03/2024 Do you or have you ever used any other forms of tobacco or nicotine? No [email or web address] Information not available 10/31/2024 What is your level of alcohol consumption? None Information not available 07/03/2024 Are you currently employed? No Information not available 07/03/2024 Do you have transportation difficulties? No [email or web address] Information not available 10/31/2024 Are you able to walk? [email or web address] Information not available 07/03/2024 Do you have difficulty doing errands alone? No Information not available 07/03/2024 Are you able to care for yourself independently? Yes Information not available 07/03/2024 Do you have difficulty dressing, bathing, grooming, or toileting? No Information not available 07/03/2024 Mental Status Question Answer Note LastModified by [employer] Details LastModified Time Do you feel stressed (tense, restless, nervous, or anxious, or unable to sleep at night)? [id number] [email or web address] Information not available 10/31/2024 Do you have difficulty concentrating, remembering or making decisions? No Information no t available 07/03/2024 Family History Nothing Reported. Medical History Condition Response Gout Y Emergency room visit since last appointm ent. Y Hospitalizations N Diabetes Y Hypertension Y Immunizations Vaccine Type Date Status Note Provider Nam e and Address Organization Details Recorded Time Influenza, high-dose, trivalent, PF 4 completed Samantha Vallecillo NP [address] [place], [address], [employer] 11/02/2024 09:27:35 zoster recombinant 5 completed Samantha Vallecillo NP [address] [place], [address], [employer] 03/05/2025 13:28:44 Influenza, adjuvanted, trivalent, PF 7 completed Griselda yeung, [employer] 07/03/2024 11:45:29 Influenza, MDCK, quadrivalent, PF 8 completed Griselda Powell null, [employer] 07/03/2024 11:45:29 Influenza, high-dose, quadrivalent, PF 0 completed Griselda [place] null, [employer] 07/03/2024 11:45:30 Influenza, high-dose, quadrivalent, PF 1 completed Griselda [place] null, [employer] 07/03/2024 11:45:30 Influenza, high-dose, quadrivalent, PF 2 completed Griselda [place] null, [employer] 07/03/2024 11:45:30 Influenza, high-dose, quadrivalent, PF 3 completed Griselda Sherry null, [employer] 07/03/2024 11:45:30 COVID-19, mRNA, LNP-S, PF, 100 mcg/0.5mL dose or 50 mcg/0.25mL dose 1 completed Griselda [place] null, [employer] 07/03/2024 11:45:30 COVID-19, mRNA, LNP-S, PF, 100 mcg/0.5mL dose or 50 mcg/0.25mL dose 1 completed Griselda [place] [employer], [employer] 07/03/2024 11:45:30 Pneumococcal conjugate PCV 13 8 completed Griselda [place] null, [employer] 07/03/2024 11:45:30 Past Encounters Encounter ID Performer Location Encounter Start Date Encounter Closed Date Diagnosis/Indication Diagnosis SNOMED-CT Code Diagnosis ICD10 Code Diagnosis Note [id number] Samantha Vallecillo NP [address] [address] 04/18/2025 09:22:01 04/18/2025 10:38:04 Type 2 diabetes mellitus 38264318 E11.22 N18.32 Dizziness 958358898 R42 Hyperlipidemia 64827624 E78.5 Chronic ki dney disease 935107011 N18.9 [id number] Samantha Vallecillo NP [address] [address] 05/16/2025 12:32:57 05/16/2025 14:23:00 Type 2 diabetes mellitus 46592366 E11.22 N18.32 Chronic low back pain 27 4937964 M54.42 G89.29 Urinary incontinence 165 859294 N39.498 Health Concerns Section Related Observation LastModified by Organization Detai ls LastModified Time None Recorded Concern Status LastModified by Organization Details LastModified Time None Recorded Payers Encounter Date Sequence Insurance Name Policy Number Policy Muhammad Covered Member ID Muhammad Member ID Guarantor Name 05/16/2025 2 [employer] (MEDICARE SUPPLEMENT) Addison Peguero [id number] Addison Peguero 05/16/2025 SLID[employer] FEE SCHEDULE - DISCOUNT Addison Peguero Notes Date Note Type Note Provider Name and Address Organization Details Recorded Time 05/16/2025 text/html Patient presents for follow up [...] does not feel right. Samantha Vallecillo NP [address] [place] [address], [address], [place] - [employer] 05/16/2025 19:21:49
--- OUTSIDE RECORDS SUMMARY | 2025-06-15 12:53 | XMS_ITS | Continuity of Care Document ---
Author Organization [place] [facility] [place], [facility] Address [address] [place] [phone] Assessment Encounter Date Assessment Date Assessment LastModified by Organization Details LastModified Time 05/30/2025 05/30/2025 Plan to update shingrix at follow up. Continue jardiance - will increase with refill. Keep planned specialist appointments. Follow up in 1 month for recheck, sooner if needed Not available 06/01/2025 16:36:45 Plan of Treatment Reminders Order Date Submit Date Provider Last Modified By Organization Details Last Modified Time Details Appointments SAME DAY ACCESS 2024 05:30P M Avel, Samantha Not available Not available Not available FOLLOW UP 2024 11:30A M Avel, Samantha Not available Not available Not available Lab None recorded. Referral None recorded. Procedures None recorded. Surgeries None recorded. Imaging None recorded. Medication Orders lisinopri l 20 mg-hydroc hlorothia zide 12.[address] [facility], [address] [place] [address], [address], 06/05/2025 16:26:13 allopurin ol 100 mg tablet [address] [facility], [address] [place] [address], [address], 05/30/2025 09:48:58 Patient TargetsNo targets recorded. Patient InstructionsNo instructions recorded. Reason for Referral None Reported. Results Created Date Observation Date Name Description Value Unit Range Abnormal Flag Note LastModifiedBy Organization Detail LastModifiedTime 05/16/20 25 05/16/2025 HbA1c (hemo globi n A1c), blood HbA1c 6.8 Not Available [address], [place], [address], 05/16/2025 13:26:07 05/07/20 25 05/05/2025 XR, abdom en No observ ation record ed. [facility] [address], [place], [address], 05/07/2025 09:42:29 05/16/20 25 05/16/2025 XR, chest No observ ation record ed. [address], [place], [address], 05/19/2025 09:20:50 05/16/20 25 05/16/2025 CT, angio gram, chest , w/o contr ast No observ ation record ed. [address], [place], [place], [address], 05/19/2025 09:41:06 05/16/20 25 05/16/2025 CT, head + brain , w/o contr ast No observ ation record ed. [address], [place], [place], [address], 05/19/2025 09:40:47 05/16/20 25 05/16/2025 CT, lumba r spine , w/wo contr ast No observ ation record ed. [address], [place], [place], [address], 05/19/2025 09:40:27 05/16/20 25 05/16/2025 cardi ac stres s test No observ ation record ed. [address], [place], [place], [address], 05/29/2025 08:44:47 05/16/20 25 05/16/2025 elect arsta rodriguezgr am, routi ne ECG, 12 leads min No observ ation record ed. [address], [place], [address], 05/29/2025 08:44:14 05/23/20 25 05/23/2025 XR, abdom en No observ ation record ed. [address] (Radiology) [address] , [place], [address], 05/29/2025 08:42:01 05/26/20 CT, cervi sharona spine , w/o contr ast No observ ation record ed. Not Available 05/2025 14:02:24 Result Notes None recorded. Problems Name Problem SNOMED Code Status Onset Date Resolution Date Notes Provider Name and Address Organization Details Recorded Time Infection of toe 818140123 Completed 202310/31/2024 Samantha Vallecillo NP [address] [place] [address], [address], [employer] 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 4 12:09:13 Type 2 diabetes mellitus without complicatio n 232620156 Completed 202303/21/2025 Samantha Vallecillo NP [address] [place] [address], [address], [employer] 5 10:01:28 Gastroesoph ageal reflux disease without esophagitis 408674249 Active 2023 Samantha Vallecillo NP [address] [place], [address], [employer] 4 12:09:07 Chronic gouty arthritis 27268363 Active 2023 Samantha Vallecillo NP [address] [place] [address], [address], [employer] 4 12:09:05 Body mass index 30+ - obesity 920331359 Active 2023 Samantha Vallecillo NP [address] [place] [address], [address], [employer] 4 12:09:30 Hypertensiv e disorder 39101502 Active 2023 Samantha Vallecillo NP [address] [place] [address], [address], [employer] 4 12:09:25 Hyperlipide miguel 58989409 Active 2024 Samantha Vallecillo NP [address] [place] [address], [address], [place] [employer] 5 09:07:34 Adjustment disorder with depressed mood 41462170 Active 2024 Samantha Vallecillo NP [address] [place] [address], [address], [employer] 5 09:07:38 Chronic kidney disease 143153340 Active 2024 Samantha Vallecillo NP [address] [place] [address], [address], [employer] 5 09:59:50 Type 2 diabetes mellitus 78998947 Active 2024 Samantha Vallecillo NP [address] [place] [address], [address], [place] [employer] 5 10:01:21 Dizziness 135867394 Active 2024 Samantha Vallecillo NP [address] [place] [address], [address], [employer] 5 10:13:57 Anemia 401249557 Active 2024 Samantha Vallecillo NP [address] [place] [address], [address], [employer] 13:03:12 Kidney stone 96959664 Active 2024 Samantha Vallecillo, BONI [address] [place], [address], [employer] 16:08:49 Chronic low back pain 345661003 Active 2024 Samantha Vallecillo NP [address] [place], [address], [employer] 13:48:49 Urinary incontinenc e 734266824 Active 2024 Samantha Vallecillo NP [address] [place], [address], [employer] 14:07:05 Problem Notes None recorded. Procedures Surgical History Date Name Laterality Status Provider Name and Address Organization Details Recorded Time complete repair of rotator cuff completed [employer] 07/03/2024 12:06:07 procedure on nerve completed [employer]. 07/03/2024 12:06:55 total knee replacement completed [employer]. 07/03/2024 12:07:10 Appendectomy completed [employer]. 07/03/2024 12:07:17 total replacement of hip completed [employer]. 07/03/2024 12:07:28 Imaging Results None recorded. Procedure [...] Updated DateTime 5 175.26 cm 29.8 kg/m2 31603.8 7 g 82 /min 96 % 96 % 136/78 mm[Hg] Carolyn Marcial [employer] 09:04:58 Social History Question Answer Notes LastModified by Organizat ion Details LastModified Time Tobacco Smoking Status Never Smoker Griselda yeung [employer] 07/03/2024 12:05:06 Is Your Home Air Conditioned? [...] Of Your Most Recent Tobacco Screening? 05/30/2025 [email or web address] Information not available 05/30/2025 What Is Your Relationship Status? Information not available 07/03/2024 Do You Use Your Seat Belt Or Car Seat Routinely? Yes Information not available 07/03/2024 Are You Sexually Active? No [email or web address] Information not available 10/31/2024 Do You Have [...] 07/03/2024 Are You Currently In School? No [email or web address] Information not available 10/31/2024 Do You Have Any Dietary Restrictions? Yes [email or web address] Information not available 10/31/2024 Sex: Male Functional Status Question Answer Note LastModified by Organizat ion Details LastModified Time Do you use any illicit or recreational drugs? No Information not available 07/03/2024 Do you or have you ever used any other forms of tobacco or nicotine? No [email or web address] Information not available 10/31/2024 What is your level of alcohol consumption? None Information not available 07/03/2024 Are you currently employed? No Information not available 07/03/2024 Do you have transportation difficulties? No [email or web address] Information not available 10/31/2024 Are you able [...] anxious, or unable to sleep at night)? [id number] [email or web address] Information not available 10/31/2024 Do you have [...] high-dose, trivalent, PF 4 completed Samantha Vallecillo, HOSE MAKER [address] [place], [address], [employer] 11/02/2024 09:27:35 zoster recombinant 5 completed Samantha Vallecillo, HOSE MAKER [address] [place], [address], [employer] 03/05/2025 13:28:44 Influenza, adjuvanted, trivalent, PF 7 completed Griselda [place] null, [employer] 07/03/2024 11:45:29 Influenza, MDCK, quadrivalent, PF 8 completed Griselda [place] null, [employer] 07/03/2024 11:45:29 Influenza, high-dose, quadrivalent, PF 0 completed Griselda [place] null, [employer] 07/03/2024 11:45:30 Influenza, high-dose, quadrivalent, PF 1 completed Griselda [place] null, [employer] 07/03/2024 11:45:30 Influenza, high-dose, quadrivalent, PF 2 completed Griselda [place] null, [employer] 07/03/2024 11:45:30 Influenza, high-dose, quadrivalent, PF 3 completed Griselda [place] null, [employer] 07/03/2024 11:45:30 COVID-19, mRNA, LNP-S, PF, 100 mcg/0.5mL dose or 50 mcg/0.25mL dose 1 completed Griselda [place] null, [employer] 07/03/2024 11:45:30 COVID-19, mRNA, LNP-S, PF, 100 mcg/0.5mL dose or 50 mcg/0.25mL dose 1 completed [facility] 07/03/2024 11:45:30 Pneumococcal conjugate PCV 13 8 completed Griselda yeung [place] [employer] 07/03/2024 11:45:30 Past Encounters Encounter ID Performer Location Encounter Start Date Encounter Closed Date Diagnosis/Indication Diagnosis SNOMED-CT Code Diagnosis ICD10 Code Diagnosis Note [id number] Samantha Vallecillo NP [place] [id number] 0 05/16/2025 12:32:57 05/16/2025 14:23:00 Type 2 diabetes mellitus 65809752 E11.22 N18.32 Chronic low back pain 27 6463705 M54.42 G89.29 Urinary incontinence 165 646299 N39.949 [id number] Samantha Vallecillo NP [place] [id number] 0 05/30/2025 08:30:23 05/30/2025 09:42:32 Chronic kidney disease 430585768 N18.9 Chronic go uty arthritis 79757801 M1A.00X0 Hyperlipidemia 36101222 E78.5 Hypertensive disorder 38 264616 I10 Type 2 ekaterina betes mellitus 59991370 E11.22 N18.32 Health Concerns Section Related Observation LastModified by Organization Detai ls LastModified Time None Recorded Concern Status LastModified by Organization Details LastModified Time None Recorded Payers Encounter Date Sequence Insurance Name Policy Number Policy Muhammad Covered Member ID Muhammad Member ID Guarantor Name 05/30/2025 2 [employer] (MEDICARE SUPPLEMENT) Addison Peguero [id number] Addison Peguero 05/30/2025 1 [place] Addison Peguero [id number] Addison Peguero Notes Date Note Type Note Provider Name and Address Organization Details Recorded Time 05/30/2025 text/html Patient presents as walk-in for follow up after ER visit. He went to ER on 05/23/2025. States that he had some abdominal pain and had to go to ER. States that he was diagnosed with too much gas. States that he has made dietary changes and that has helped with his abdominal discomfort.He was also seen at [facility] on 05/16 r/t back pain.He sometimes has difficulty swallowing with really dry foods.Follows up with urology on 08/28/2025.He states he is doing much better overall.He is tolerating his jardiance without issue. Samantha Vallecillo NP [address] [place] [address], [address], [facility] [employer] 06/01/2025 16:37:12
[2025-06-15 13:26] LABS: Hematocrit 36.1 % (42.0-52.0); Hemoglobin 11.9 g/dL (14.1-18.0); Immature Granulocytes % 0.3 %; Mean Corpuscular HGB Conc 33.0 g/dL (31.8-35.4); Mean Corpuscular Hemoglobin 30.6 pg (27.0-31.2); Mean Corpuscular Volume 92.8 fl (80-94); Nucleated Red Blood Cells % 0 %; Platelet Count 227 K/mm3 (142-424); Red Blood Count 3.89 M/mm3 (4.60-6.20); Red Cell Distribution Width-SD 44.3 fL; White Blood Count 6.4 K/mm3 (4.8-10.8)
[2025-06-15 13:33] LABS: Albumin Level 3.7 g/dl (3.5-5.0); Chloride 106 mmol/L (98-107); Potassium 5.4 mmoL/L (3.5-5.1); Sodium 131 mmol/L (136-145)
[2025-06-15 13:36] LABS: Alanine Aminotransferase 26 U/L (12-78); Albumin/Globulin Ratio 1.4 (1.1-1.8); Alkaline Phosphatase 63 U/L (38-126); Anion Gap 15.4 mEq/L (5-15); Aspartate Amino Transferase 29 U/L (17-59); Bilirubin,Total 0.7 mg/dl (0.2-1.3); Blood Urea Nitrogen 79 mg/dl (9-20); Calcium 10.0 mg/dl (8.4-10.2); Carbon Dioxide 15 mmol/L (22.0-30.0); Creatinine Clearance Estimated 32 mL/min (50-200); Creatinine,Serum 2.70 mg/dl (0.66-1.25); Estimated Glomerular Filt Rate 23 ml/min (>60); GFR (African American) 28 ML/MIN (>60); Globulin 2.6 g/dL (1.3-3.2); Glucose 155 mg/dl (74-100); Magnesium 1.7 mg/dl (1.6-2.3); Total Protein,Serum 6.3 g/dl (6.3-8.2)
[2025-06-15 13:46] LABS: Hepatitis C Ab Qual. W/ RFX NEGATIVE (Negative)
[2025-06-15] MEDS: 0.9 % SODIUM CHLORIDE 50 ML VIAL 100 ML IV (13:51)
[2025-06-15] MEDS: SODIUM CHLORIDE 0.9% 10ML SYR (RAD ONLY) 10 ML IV (13:51)
[2025-06-15] MEDS: IOPAMIDOL-370 (76%);100ML BOTTLE 160 ML IV (13:51)
[2025-06-15] MEDS: LACTATED RINGERS 1000ML 1,000 ML 999 ML IV (14:04)
[2025-06-15 16:47] LABS: Troponin I < 0.01 ng/ml (0.00-0.034)
[2025-06-15 16:47] LABS: Troponin I < 0.01 ng/ml (0.00-0.034)
[2025-06-18 16:15] LABS: HSV-1 DNA Negative (Negative); HSV-2 DNA Negative (Negative)
== END 2025-06-15 17:17 | disposition home or self-care (01) ==
PROVIDERS: Student in an Organized Health Care Education/Training Program; Emergency Provider Emergency Medicine; PCP Nurse Practitioner Family
DX: M54.2 Cervicalgia (principal); M54.6 Pain in thoracic spine
CPT/HCPCS: 70450; 70496; 70498; 71275; 80053; 83735; 84484; 85025; 86803; 87389; 87529; 93005; 96360; 99285; J7120; Q9967

== ENCOUNTER 2025-08-15 08:14 | Outpatient (CLI) | payer MEDICARE, OTHER, SELFPAY ==
--- OUTSIDE RECORDS SUMMARY | 2025-06-19 05:00 | XMS_ITS | Encounter Summary ---
Author Organization [facility] Address [address] [place] [address] Care Team Providers Care Supervisor Prepress Name Role Phone Samantha Vallecillo APRN Primary Care Provider [phone] Encounter Details Date Type Department Care Team (Late st Contact Info) Description 06/19/2025 5:00 AM EDT Outside Facility Service [facility] [address] [place] [address] Melanie Scott MD [address] [place] [address] [address] [place] [id number] Social History Tobacco Use Types Packs/Day Years Used Date Smoking Tobacco: Never Smokeless Tobacco: Never Alcohol Use Standard Drinks/Week Comments Never 0 (1 standard drink = 0.6 oz pur e alcohol) Sex and Gender Information Value Date Recorded Sex Assigned at Not on file Legal Sex Male 12:25 PM EST Gender Identity Not on file Sexual Orientation Not on file documented as of this encounter Plan of Treatment Upcoming Encounters Date Type Department Care Team (Late st Contact Info) Description 08/25/2025 9:30 AM EDT Office Visit [facility] [address] [place] [address] Marlen Vu APRN [address] [place] [address] documented as of this encounter Visit Diagnoses Not on filedocumented in this encounter Care Teams Supervisor Prepress Relationship Specialty Start Date End Date Samantha Vallecillo APRN [address] [place] [address] PCP - General Family Medicine 06/19/25 documented as of this encounter
--- OUTSIDE RECORDS SUMMARY | 2025-07-28 13:55 | XMS_ITS | Encounter Summary ---
Author Organization [facility] Address [address] [place] [address] Care Team Providers Care Card Doffer Name Role Phone Samantha Vallecillo AISHA Primary Care Provider [phone] Reason for Visit * Cardiac (Routine) - Closed Specialty Diagnoses / Procedures Referred By Светлана t Referred To Contact Diagnoses Precordial chest pain Palpitations Procedures Holter Monitor - 72 Hour Up To 15 Days Melanie Scott MD [address] [place] [address] Phone: tel: fax: [facility] [address] [place] [address] Phone: tel: fax: Referral ID Status Reason Start Date Expiration Date Visits Re quested Visits Authorized [id number] Closed 07/28/2025 10/27/2026 1 1 Encounter Details Date Type Department Care Team (Latest Contact Info) Description 07/28/2025 1:55 PM EDT Ancillary Procedure [facility] [place] [address] Precordial chest pain; Palpitations Social History [...] Description 08/25/2025 9:30 AM EDT Office Visit [facility] [address] [place] [address] Marlen Vu APRN [address] [place] [address] Pending Results Name Type Priority Associated Diagnoses Date /Time Holter Monitor - 72 Hour Up To 15 Days Cardiac Services Routine Precordial chest pain Palpitations 07/28/2025 2:20 PM EDT documented as of this encounter Visit Diagnoses Diagnosis Precordial chest pain Precordial pain Palpitations documented in this encounter Care Teams Card Doffer Relationship Specialty Start Date End Date Samantha Vallecillo APRN [address] [place] [address] PCP - General Family Medicine 06/19/25 documented as of this encounter
--- OUTSIDE RECORDS SUMMARY | 2025-07-30 05:00 | XMS_ITS | Encounter Summary ---
Author Organization [facility] Address [address] [place] [address] Care Team Providers Care Portfolio Architect Name Role Phone Samantha Vallecillo APRN Primary Care Provider [phone] Encounter Details Date Type Department Care Team (Late st Contact Info) Description 07/30/2025 5:00 AM EDT Outside Facility Service [facility] [address] [place] [address] Melanie Scott MD [address] [place] [address] [address] [place] [id number] Social History Tobacco Use Types Packs/Day Years [...] Description 08/25/2025 9:30 AM EDT Office Visit [facility] [address] [place] [address] Marlen Vu APRN [address] [place] [address] documented as of this encounter Visit Diagnoses Not on filedocumented in this encounter Care Teams Portfolio Architect Relationship Specialty Start Date End Date Samantha Vallecillo APRN [address] [place] [address] PCP - General Family Medicine 06/19/25 documented as of this encounter
--- OUTSIDE RECORDS SUMMARY | 2025-08-15 08:54 | XMS_ITS | Encounter Summary ---
Author Organization [facility] Address [address] [place] [id number] Care Team Providers Care Auto Clutch Specialist Name Role Phone Samantha Vallecillo APRN Primary Care Provider [phone] Encounter Details Date Type Department Care Team (Latest Contact Info) Description 07/28/2025 Travel Social History Tobacco Use Types Packs/Day Years [...] Description 08/25/2025 9:30 AM EDT Office Visit [facility] [address] [place] [address] Marlen Vu APRN [address] [place] [address] documented as of this encounter Visit Diagnoses Not on filedocumented in this encounter Care Teams Auto Clutch Specialist Relationship Specialty Start Date End Date Samantha Vallecillo APRN [address] [place] [address] PCP - General Family Medicine 06/19/25 documented as of this encounter
--- OUTSIDE RECORDS SUMMARY | 2025-08-15 08:54 | XMS_ITS | Encounter Summary ---
Author Organization [facility] Address [address] [place] [address] Care Team Providers Care Wharf Attendant Name Role Phone Samantha Vallecillo AISHA Primary Care Provider [phone] Reason for Referral * Cardiac (Routine) - Closed Specialty Diagnoses / Procedures Referred By Contnatasha t Referred To Contact Diagnoses Precordial chest pain Palpitations Procedures Holter Monitor - 72 Hour Up To 15 Days Melanie Scott MD [address] [place] [address] Phone: tel: fax: [facility] [place] [address] [place] [address] Phone: tel: fax: Referral ID Status Reason Start Date Expiration Date Visits Re quested Visits Authorized [id number] Closed 07/28/2025 10/27/2026 1 1 Encounter Details Date Type Department Care Team (Late st Contact Info) Description 07/28/2025 Telephone [facility] [address] [place] [address] Melanie Scott MD [address] [place] [address] Social History Tobacco Use Types Packs/Day Years [...] on file documented as of this encounter Miscellaneous Notes * Telephone Encounter - Melanie Madrid MA - 07/28/2025 2:21 PM EDT Patient has been scheduled for 08/25/2025. * Telephone Encounter - Melanie Madrid MA - 07/28/2025 1:53 PM EDT Patient is here for monitor. Monitor has been put on. * Telephone Encounter - Melanie Scott MD - 07/28/2025 12:36 PM EDT Received call that patient has been admitted to [facility] for chest pain. Troponins have been negative. However EKG has shown an intermittent right bundle branch block which is new. He had had an episode of syncope several weeks ago. I would like to place a monitor on him to monitor the bundle branch block. He will also need follow-up for chest pain, discussion of results and possibly a stress test. documented in this encounter Plan of Treatment Upcoming Encounters Date Type Department Care Team (Late st Contact Info) Description 08/25/2025 9:30 AM EDT Office Visit [facility] [address] [place] [address] Marlen Vu APRN [address] [place] [address] Pending Results Name Type Priority Associated Diagnoses Date /Time Holter Monitor - 72 Hour Up To 15 Days Cardiac Services Routine Precordial chest pain Palpitations 07/28/2025 2:20 PM EDT Scheduled Orders Name Type Priority Associated Diagnoses Orde r Schedule Holter Monitor - 72 Hour Up To 15 Days Cardiac Services Routine Precordial chest pain Palpitations Expected: 08/02/2025, Expires: 07/28/2026 documented as of this encounter Visit Diagnoses Diagnosis Precordial chest pain- Primary Precordial pain Palpitations documented in this encounter Care Teams Wharf Attendant Relationship Specialty Start Date End Date Samantha Vallecillo APRN [address] [place] [address] PCP - General Family Medicine 06/19/25 documented as of this encounter
--- OUTSIDE RECORDS SUMMARY | 2025-08-15 08:54 | XMS_ITS | Encounter Summary ---
Author Organization [employer] ([place], [place], [place], [place]) Address [address] [place] [address] Care Team Providers Care Building Admin Name Role Phone AvelSamantha brantley Yennifer PLATA Primary Care Provider [phone] Reason for Referral * Diagnostic X-Ray (Emergency) - Closed Specialty Diagnoses / Procedures Referred By Contac t Referred To Contact Radiology Diagnoses Calculus of kidney Procedures X-ray abdomen KUB 1 view Derek Madrigal MD [address] [place] [address] [address] [place] [address] Phone: tel: fax: [facility] [address] [place] [address] [address] [place] [address] Phone: tel: fax: Referral ID Status Reason Start Date Expiration Date Visits Re quested Visits Authorized [id number] Closed 05/05/2025 05/05/2026 1 1 Encounter Details Date Type Department Care Team (Late st Contact Info) Description 05/05/2025 Outside Orders [facility] [address] [place] [address] [address] [place] [phone] Derek Madrigal MD [address] [place] [address] [address] [place] [id number] Calculus of kidney (Primary Dx) Social History Tobacco Use Types Packs/Day Years Used Date Smoking Tobacco: Never Assessed Sex and Gender Information Value Date Recorded Sex Assigned at Not on file Legal Sex Male 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
--- OUTSIDE RECORDS SUMMARY | 2025-08-15 08:55 | XMS_ITS | Continuity of Care Document ---
Author Organization [facility] [employer] Address [address] [place] [address] Assessment Encounter Date Assessment Date Assessment LastModified by Organization Details LastModified Time 06/18/2025 06/18/2025 Going directly to ER for evaluation Spoke with Concha at [facility] ER at 2:04 PM. His daughter Power is driving him directly to ER given his symptomatic hypotension. We did discuss the thyroid finding, I will place order for evaluation of incidental thryoid nodule. If he is not admitted to the hospital, I will refer to detention facility for placement. He and daughter are agreeable with this plan. Not available 06/18/2025 15:40:45 Plan of Treatment Reminders Order Date Submit Date Provider Last Modified By Organization Details Last Modified Time Details Appointments None recorded. Lab None recorded. Referral None recorded. Procedures None recorded. Surgeries None recorded. Imaging US, thyroid - First available . [address] (Scheduling), [address], [place], [address], 10:45:57 Medication Orders None recorded. Patient TargetsNo targets recorded. Patient InstructionsNo instructions recorded. Reason for Referral None Reported. Results Created Date Observation Date Name Description Value Unit Range Abnormal Flag Note LastModifiedBy Organization Detail LastModifiedTime 05/23/2005/23/2025 XR, abdom en No observ ation record ed. [email or web address] [facility] (Radiology) [address], [place], [address], 05/29/2025 08:42:01 05/26/20 CT, cervi sharona spine , w/o contr ast No observ ation record ed. [facility] Not Available 2024 10:34:15 06/15/20 25 06/15/2025 CT, head + brain , w/wo contr ast No observ ation record ed. [address], [place], [address], 06/16/2025 10:40:48 06/15/20 25 06/15/2025 CT, angio gram, head + neck, w/wo contr ast No observ ation record ed. [address], [place], [address], 06/16/2025 10:40:34 06/15/20 25 06/15/2025 CT, angio gram, head, w/ contr ast No observ ation record ed. [address], [place], [address], 06/16/2025 10:40:20 06/15/20 25 06/15/2025 CT, chest + abdom en + pelvi s, w/ contr ast No observ ation record ed. [address], [place], [address], 06/16/2025 10:38:37 06/17/20 25 06/15/2025 elect rasta rodriguezgr am No observ ation record ed. [address], [place], [place], [address], 06/18/2025 08:25:51 06/18/20 25 06/18/2025 CT, head + brain , w/o contr ast No observ ation record ed. [address] (Radiology) [address], [place], [address], 06/18/2025 16:49:00 07/27/20 25 07/27/2025 XR, chest , 1 view No observ ation record ed. [address] (Radiology) [address], [place], [address], 07/29/2025 11:19:27 07/27/20 25 07/27/2025 CT, chest , w/o contr ast No observ ation record ed. [address] (Radiology) [address] [place], [address], 07/29/2025 11:18:41 07/27/20 25 07/27/2025 CT, abdom en + pelvi s, w/ contr ast No observ ation record ed. [address] (Radiology) [address], [place], [address], 07/29/2025 11:18:24 07/28/20 25 07/28/2025 US, duple x, venou s, lower extre mity No observ ation record ed. [address] (Radiology) [address], [place], [address], 07/29/2025 11:15:30 07/28/20 25 07/28/2025 US, doppl er echoc ardio gram No observ ation record ed. [address] (Radiology) [address] [place], [address], 07/29/2025 11:12:55 Result Notes None recorded. Problems Name Problem SNOMED Code Status Onset Date Resolution Date Notes Provider Name and Address Organization Details Recorded Time Infection of toe 812677459 Completed 202310/31/2024 Samantha Vallecillo NP [address] [place], [address], [facility] [employer] 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 4 12:09:13 Type 2 diabetes mellitus without complicatio n 924181726 Completed 202303/21/2025 Samantha Vallecillo NP [address] [place] [address], [address], [employer] 5 10:01:28 Gastroesoph ageal reflux disease without esophagitis 477818025 Active 2023 Samantha Vallecillo NP [address] [place] [address], [address], [employer] 4 12:09:07 Chronic gouty arthritis 62220325 Active 2023 Samantha Vallecillo NP [address] [place] [address], [address], [employer] 4 12:09:05 Body mass index 30+ - obesity 415777482 Active 2023 Samantha Vallecillo NP [address] [place] [address], [address], [employer] 4 12:09:30 Hypertensiv e disorder 10560475 Active 2023 Samantha Vallecillo NP [address] [place] [address], [address], [employer] 4 12:09:25 Hyperlipide miguel 34354772 Active 2024 Samantha Vallecillo NP [address] [place] [address], [address], [employer] 5 09:07:34 Adjustment disorder with depressed mood 06670948 Active 2024 Samantha Vallecillo NP [address] [place] [address], [address], [employer] 5 09:07:38 Chronic kidney disease 024981066 Active 2024 Samantha Vallecillo NP [address] [place] [address], [address], [employer] 09:59:50 Type 2 diabetes mellitus 95125568 Active 2024 Samantha Vallecillo, DURALUMIN MECHANIC [address] [place] [address], [address], [employer] 10:01:21 Dizziness 292435019 Active 2024 Samantha Vallecillo, DURALUMIN MECHANIC [address] [place] [address], [address], [place] [employer] 15:40:33 Anemia 640106156 Active 2024 Samantha Vallecillo, DURALUMIN MECHANIC [address] [place] [address], [address], [employer] 15:40:40 Kidney stone 09029381 Active 2024 Samantha Vallecillo, DURALUMIN MECHANIC [address] [place] [address], [address], [place] [employer] 15:40:30 Chronic low back pain 019455920 Active 2024 Samantha Vallecillo, BONI [address] [place] [address], [address], [place] [employer] 15:40:38 Urinary incontinenc e 336123723 Active 2024 Samantha Vallecillo NP [address] [place] [address], [address], [employer] 15:40:22 Thyroid nodule 323628178 Active 2024 Samantha Vallecillo NP [address] [place] [address], [address], [place] [employer] 15:40:24 Low blood pressure 34395181 Active 2024 Samantha Vallecillo, BONI [address] [place] [address], [address], [facility] [employer] 5 15:40:28 Neck pain 78343985 Active 2024 Samantha Vallecillo NP [address] [place] [address], [address], [place] [employer] 15:40:27 Problem Notes None recorded. Procedures Surgical History Date Name Laterality Status Provider Name and Address Organization Details Recorded Time complete repair of rotator cuff completed [employer] 07/03/2024 12:06:07 procedure on nerve completed [employer]. 07/03/2024 12:06:55 total knee replacement completed [employer]. 07/03/2024 12:07:10 Appendectomy completed [employer]. 07/03/2024 12:07:17 total replacement of hip completed [employer]. 07/03/2024 12:07:28 Imaging Results None recorded. Procedure [...] completed Not Available Not Available Not Available Laxative (bisacodyl) 5 mg tablet,reggie yed release take 1 tablet by mouth per day As needed active Not Available Not Available No t Available solifenacin 10 mg tablet Take 1 [...] Not Available Not Available No t Available Gemtesa 75 mg tablet Take 1 tablet every day by oral route. 05/30 completed Not Available Not Available Not Available aspirin 81 mg capsule Take 1 capsule every day by oral route as directed. active Not Available Not Available No t Available Vitals Date Recorded Body height Heart rate Oxygen saturation Oxygen saturation in Arterial blood by Pulse oximetry Systolic And Diastolic Provider Name and Address Organization Details Last Updated DateTime 5 175.26 cm 104 /min 98 % 98 % 86/55 mm[Hg] Carolyn Ceja [employer] 13:34:39 Social History Question Answer Notes LastModified by Organizat ion Details LastModified Time Tobacco Smoking Status Never Smoker Griselda yeung [employer] 07/03/2024 12:05:06 Is Your Home Air Conditioned? [...] Date Of Your Most Recent Tobacco Screening? 06/18/2025 [email or web address] Information not available 06/18/2025 What Is Your Relationship Status? Information not available 07/03/2024 Do You Use Your Seat Belt Or Car Seat Routinely? Yes Information not available 07/03/2024 Are You Sexually Active? No [email or web address] Information not available 10/31/2024 Do You Have Smoke And Carbon Monoxide Detectors In Your Home? Yes Information not available 07/03/2024 Are You Passively Exposed To Smoke? No Information no t available 07/03/2024 Are There Any Smokers In Your House? No Information not available 07/03/2024 Do You Participate In Social Media? Yes [email or web address] Information not available 10/31/2024 Has Tobacco Cessation Counseling Been Provided? No Information not available 07/03/2024 Have You Recently Traveled Abroad? No Information not available 07/03/2024 Do You Have Difficulty Walking Or Climbing Stairs? Yes Information not available 07/03/2024 Are You Currently In School? No Information not available 10/31/2024 Do You Have Any Dietary Restrictions? Yes [email or web address] Information not available 10/31/2024 Sex: Male Functional Status Question Answer Note LastModified by Organizat ion Details LastModified Time Do you use any illicit or recreational drugs? No Information not available 07/03/2024 Do you or have you ever used any other forms of tobacco or nicotine? No [email or web address] Information not available 10/31/2024 What is your level of alcohol consumption? None Information not available 07/03/2024 Are you currently employed? No Information not available 07/03/2024 Do you have access to reliable transportation? No Information not available 10/31/2024 Are you able to walk independently without assistance or assistive devices? [email or web address] Information not available 07/03/2024 Do you [...] anxious, or unable to sleep at night)? [id number] [email or web address] Information not available 10/31/2024 Do you have [...] PF 4 completed Samantha Vallecillo NP [address] [place], [address], [employer] 11/02/2024 09:27:35 zoster recombinant 5 completed Samantha Vallecillo NP [address] [place], [address], [employer] 03/05/2025 13:28:44 Influenza, adjuvanted, trivalent, PF 7 completed Griselda Chireno null, [employer] 07/03/2024 11:45:29 Influenza, MDCK, quadrivalent, PF 8 completed Griselda Chireno null, [employer] 07/03/2024 11:45:29 Influenza, high-dose, quadrivalent, PF 0 completed Griselda Chireno null, [employer] 07/03/2024 11:45:30 Influenza, high-dose, quadrivalent, PF 1 completed Griselda Chireno null, [employer] 07/03/2024 11:45:30 Influenza, high-dose, quadrivalent, PF 2 completed Griselda Chireno null, [employer] 07/03/2024 11:45:30 Influenza, high-dose, quadrivalent, PF 3 completed Griselda Chireno null, [employer] 07/03/2024 11:45:30 COVID-19, mRNA, LNP-S, PF, 100 mcg/0.5mL dose or 50 mcg/0.25mL dose 1 completed Griselda Chireno null, [employer] 07/03/2024 11:45:30 COVID-19, mRNA, LNP-S, PF, 100 mcg/0.5mL dose or 50 mcg/0.25mL dose 1 completed Griselda Chireno null, [employer] 07/03/2024 11:45:30 Pneumococcal conjugate PCV 13 8 completed Griselda Chireno null, [employer] 07/03/2024 11:45:30 Past Encounters Encounter ID Performer Location Encounter Start Date Encounter Closed Date Diagnosis/Indication Diagnosis SNOMED-CT Code Diagnosis ICD10 Code Diagnosis IMO Codes Diagnosis Note [id number] Samantha Vallecillo NP [address] [address] 05/30/2025 08:30:23 05/30/2025 09:42:32 Chronic kidney disease 824253343 N18.9 Chronic go uty arthritis 36280914 M1A.00X0 Hyperlipidemia 31188835 E78.5 Hypertensive disorder 38 219691 I10 Type 2 ekaterina betes mellitus 60669850 E11.22 N18.32 5653252396 [id number] Samantha Avel, BONI [address] [address] 06/18/2025 12:52:59 06/18/2025 15:09:36 Thyroid nodule 480925066 E04.1 02641 Neck pain 08719373 M54.2 94364 Low blood pressure 82559 003 I95.9 54444156 Health Concerns Section Related Observation LastModified by Organization Detai ls LastModified Time None Recorded Concern Status LastModified by Organization Details LastModified Time None Recorded Payers Encounter Date Sequence Insurance Name Policy Number Policy Muhammad Covered Member ID Muhammad Member ID Guarantor Name 06/18/2025 1 [place] Addison Peguero [id number] Addison Peguero 06/18/2025 2 [employer] (MEDICARE SUPPLEMENT) Addison Peguero [id number] Addison Peguero Notes Date Note Type Note Provider Name and Address Organization Details Recorded Time 06/18/2025 text/html Patient presents for follow up. He has had multiple ER visits in the last few months and is here to follow up after most recent ER visit 3 days ago. He went to [facility] and his neck was hurting really bad. He felt like he was going to pass out. He was not answering so they called an ambulance. He states he does not remember the episode. He has had a few episodes where he feels like he is going to pass out. His blood pressure is low today. He is having lapses in memory as well where he feels like he falls asleep but does not remember falling asleep. His daughters are helping him with meds/finances/ADL' s, but lives alone. His is in the detention facility in [facility]. He continues to struggle with incontinence since he had his last kidney stone surgery. He really thinks he would benefit from going into the prison, but he is unsure if he wants to do that. He does have neck pain today on the left side and feels dizzy and weak. Samantha Vallecillo NP [address] [place] [address], [address], [facility] [employer] 06/18/2025 15:41:35
--- OUTSIDE RECORDS SUMMARY | 2025-08-15 08:55 | XMS_ITS | Clinical Summary ---
[facility] Organization [facility] Address [address] [place] [address] Care Team Providers Care Drapery Counselor Name Role Phone Samantha Vallecillo APRN Primary Care Provider [phone] Allergies No known active allergies Medications aspirin [...] Essential hypertension 04/04/2023 Urolithiasis 07/05/2018 Diabetes mellitus Encounters Date Type Department Care Team Description 07/30/2025 5:00 AM EDT Outside Facility Service [facility] [address] [place] [address] Melanie Scott MD 07/28/2025 1:55 PM EDT Ancillary Procedure [facility] [address] [place] [address] Precordial chest pain; Palpitations 07/28/2025 Travel 07/28/2025 Telephone [facility] [address] [place] [address] Melanie Scott MD 06/19/2025 5:00 AM EDT Outside Facility Service [facility] [address] [place] [address] Melanie Scott MD from Last 3 Months Immunizations Immunization Administration Dates Next Due COVID-19 [...] 04/04/2023 12:56 PM EDT Plan of Treatment Upcoming Encounters Date Type Department Care Team (Late st Contact Info) Description 08/25/2025 9:30 AM EDT Office Visit [facility] [address] [place] [address] Marlen Vu APRN [address] [place] [address] Health Maintenance Due Date Last Done Comments DIABETIC EYE EXAM 1959 DIABETIC FOOT EXAM 1959 URINE MICROALBUMIN-CREATININ E RATIO (uACR) 1959 TDAP/TD VACCINES (1 - Tdap) 1968 Pneumococcal Vaccine 50+ (2 of 2 - PPSV23) 11/01/2018 09/06/2018 ANNUAL WELLNESS VISIT 04/04/2023 HEMOGLOBIN A1C 04/04/2023 HEPATITIS C SCREENING 04/04/2023 RSV Vaccine - Adults (1 - 1- dose 75+ series) 2024 ZOSTER VACCINE (2 of 2) 04/23/2025 02/26/2025 INFLUENZA VACCINE 06/20/2025 10/31/2024, , 09/08/2022, Additional history exists COVID-19 Vaccine (3 - 2024-2 6 season) 2025 01/14/2021, 12/17/2020 Procedures Procedure Name Priority Date/Time Associated Diagnosis Comments SCANNED - LABS 07/28/2025 SCANNED - IMAGING 07/28/2025 SCANNED EKG 07/27/2025 SCANNED EKG 07/27/2025 SCANNED - LABS 07/27/2025 SCANNED - LABS 07/27/2025 SCANNED - LABS 07/27/2025 SCANNED - IMAGING 07/27/2025 SCANNED - IMAGING 07/27/2025 SCANNED EKG 06/18/2025 from Last 3 Months Results * IMAGING SCANNED (07/28/2025) Only the most recent of3 resultswithin the time period is included. Anatomical Region Laterality Modality Radiographic Rica ging us Melanie Scott MD IMG DIAGNOSTIC IMAGING ORDER KRISTIN Final Result * LABS SCANNED (07/28/2025) Only the most recent of4 resultswithin the time period is included. us Melanie Scott MD LAB BLOOD ORDERABLES Final R esult * ECG Scan (07/27/2025) Only the most recent of3 resultswithin the time period is included. us Melanie Scott MD ECG ORDERABLES Final Result from Last 3 Months Insurance MEDICARE A & B [employer] Care Teams Drapery Counselor Relationship Specialty Start Date End Date Samantha Vallecillo APRN [facility] [place] [address] PCP - General Family Medicine 06/19/25
--- OUTSIDE RECORDS SUMMARY | 2025-08-15 08:55 | XMS_ITS | Clinical Summary ---
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 Gender Identity Not on file Sexual Orientation [...] Health Maintenance Due Date Last Done Comments Diabetic Kidney Health Evalu ation (KED) 1949 Diabetic Eye Exam 1959 Depression Screening (12+) 1961 Tobacco Cessation Counseling and Screening (12+) 1961 Hepatitis C Screening 1967 DTAP/TDAP/TD VACCINES (1 - Tdap) 1968 Medicare Initial AWV [id number] 06/21/2015 Pneumococcal 50+ years (2 of 2 - PPSV23, PCV20, or PCV21) 11/01/2018 09/06/2018 Respiratory Syncytial Virus (RSV) Adult or (1 - 1-dose 75+ series) 2024 Falls Risk Screening 11/20/2024 Hemoglobin A1C 02/13/2025 Shingles Vaccine (Zoster) (2 of 2) 04/23/20252024 COVID-19 VACCINE (3 - 2024-2 6 season) 2025 01/14/2021, 12/17/2020 Influenza Vaccine (#1) 2025 , 09/29/2023, 09/08/2022, Additional history exists Insurance MEDICARE PART A B Advance Directives For more information, please contact: [phone] * Full Code (Latest Code Status on File) Date Activated Date Inactivated Comments 02/13/2025 8:51 AM 02/13/2025 3:42 PM Care Teams Manager Corporate Responsibility Relationship Specialty Start Date End Date Samantha Vallecillo NP [address] [place] [address] PCP - General Nurse Practitioner 02/13/25
--- OUTSIDE RECORDS SUMMARY | 2025-08-15 08:55 | XMS_ITS | Referral Summary ---
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
--- OUTSIDE RECORDS SUMMARY | 2025-08-15 08:55 | XMS_ITS | Data Portability ---
Author Organization [facility] Address [address] [place] [address] Assessment Encounter Date Assessment Date Assessment LastModified by Organization Details LastModified Time 03/21/2025 03/21/2025 RF glipizide per plan below. Patient pending nephrology appt for kidneys. We were able to get urology r/s for next week 03/27/2025 at 1:45 in [place], he was provided appt info. He was advised to seek care with any severe or worsening pain, fever or chills. He was unable to void today, he will try to return urine sample for UA/culture today or tomorrow. Follow up as planned, sooner if needed Not available 03/21/2025 10:48:17 04/18/2025 04/18/2025 Change glipizide to jardiance as prescribed. Samples as packaged per quality assurance technician provided to patient today. Labs per plan [...] Dr. Scott /Fei office on 05/29. Power [phone] (daughter) Not available 05/16/2025 19:21:13 05/30/2025 05/30/2025 Plan to update shingrix at follow up. Continue jardiance - will increase with refill. Keep planned specialist appointments. Follow up in 1 month for recheck, sooner if needed Not available 06/01/2025 16:36:45 06/18/2025 06/18/2025 Going directly to ER for evaluation Spoke with Concha at [facility] at 2:04 PM. His daughter Power [...] Modified Time Details Appointments None recorded. Lab HbA1c (hemoglobin A1c), blood [address], [address], 5 14:15:14 HbA1c (hemoglobin A1c), blood [address], [address], 5 10:17:29 CMP, serum or plasma 2024 025 [facility] [address] [place] [address], [address], 5 05:06:44 CBC w/ auto diff 2024 025 [facility] ([place]), [address] [place] [address], [address], 5 05:06:43 lipid panel, serum 2024 025 [facility] ([place]), [address] [place] [address], [place], [address], 05:06:45 urinalysis, dipstick 2024 025 [facility], [address] [place] [address], [place], [address], 08:04:10 Referral None recorded. Procedures None recorded. Surgeries None recorded. Imaging US, thyroid - First available. [address] ([facility]), [address], [place], [address], 10:45:57 Medication Orders lisinopril 20 mg-hydrochl orothiazide 12.5 mg tablet 2024 025 [facility], [address] [place] [address], [address], 16:26:13 allopurinol 100 mg tablet 2024 025 [facility], [address] [place] [address], [address], 09:48:58 Jardiance 10 mg tablet 2024 025 [facility], [facility], [address], 5 10:18:12 pioglitazon e 15 mg tablet 2024 025 [facility], [facility] [place], [address], 5 14:22:17 glipizide ER 10 mg tablet, extended release 24 hr 2024 025 [facility], [facility] [place], [address], 10:09:07 Patient TargetsNo targets recorded. Patient Instructions Encounter Date Encounter Id Patient Instructions Last Modified By Organization Details Last Modified Time 03/21/2025 [id number] learning about type 2 diabetes Not available 03/21/2025 10:02:30 type 2 diabetes: care instructions Not available 03/21/2025 10:02:30 high cholesterol : care instructions Not available 03/21/2025 10:02:30 04/18/2025 [id number] learning about type 2 diabetes Not available 04/18/2025 10:17:29 type 2 diabetes: care instructions Not available 04/18/2025 10:17:29 Reason for Referral None Reported. Results Created Date Observation Date Name Description Value Unit Range Abnormal Flag Note LastModifiedBy Organization Detail LastModifiedTime 02/27/20 25 02/27/2025 CBC WITH DIFFE RENTI AL/PL ATELE T WBC 14.3 x10e3 /uL 3.4-10 .8 above high normal Not Available [facility] ([facility]) [address] [place], [address], 02/27/2025 09:28:30 02/27/2002/27/2025 CBC WITH DIFFE RENTI AL/PL ATELE T RBC 4.07 x10e6 /uL 4.14-5 .80 below low normal Not Available [facility] ([facility]) [address] [place], [address], 02/27/2025 09:28:30 02/27/2002/27/2025 CBC WITH DIFFE RENTI AL/PL ATELE T hemoglobin 12.9 g/dL 13.0-1 7.7 below low normal Not Available [facility] ([facility]) [address] [place], [address], 02/27/2025 09:28:30 02/27/20 25 02/27/2025 CBC WITH DIFFE RENTI AL/PL ATELE T hematocrit 38.3 % 37.5-5 1.0 normal Not Available [facility] ([facility]) [address] [facility], [place], [address], 02/27/2025 09:28:30 02/27/20 25 02/27/2025 CBC WITH DIFFE RENTI AL/PL ATELE T MCV 94 fL 79-97 normal Not Available [facility] ([facility]) [address] [facility], [place], [address], 02/27/2025 09:28:30 02/27/20 25 02/27/2025 CBC WITH DIFFE RENTI AL/PL ATELE T MCH 31.7 pg 26.6-3 3.0 normal Not Available [facility] ([facility]) [address] [facility], [place], [address], 02/27/2025 09:28:30 02/27/20 25 02/27/2025 CBC WITH DIFFE RENTI AL/PL ATELE T MCHC 33.7 g/dL 31.5-3 5.7 normal Not Available [facility] ([facility]) [address] [facility], [place], [address], 02/27/2025 09:28:30 02/27/20 25 02/27/2025 CBC WITH DIFFE RENTI AL/PL ATELE T RDW 12.4 % 11.6-1 5.4 Not Available [facility] ([facility]) [address] [facility], [place], [address], 02/27/2025 09:28:30 02/27/20 25 02/27/2025 CBC WITH DIFFE RENTI AL/PL ATELE T platelets 277 x10e3 /uL 150-45 0 normal Not Available [facility] ([facility]) [address] [place], [address], 02/27/2025 09:28:30 02/27/20 25 02/27/2025 CBC WITH DIFFE RENTI AL/PL ATELE T neutrophils 90 % not estab. normal Not Available [facility] ([facility]) [address] [facility], [place], [address], 02/27/2025 09:28:30 02/27/20 25 02/27/2025 CBC WITH DIFFE RENTI AL/PL ATELE T lymphs 6 % not estab. normal Not Available [facility] ([facility]) [address] [facility], [place], [address], 02/27/2025 09:28:30 02/27/20 25 02/27/2025 CBC WITH DIFFE RENTI AL/PL ATELE T monocytes 4 % not estab. normal Not Available [facility] ([facility]) [address] [facility], [place], [address], 02/27/2025 09:28:30 02/27/20 25 02/27/2025 CBC WITH DIFFE RENTI AL/PL ATELE T eos 0 % not estab. normal Not Available [facility] ([facility]) [address] [facility], [place], [address], 02/27/2025 09:28:30 02/27/20 25 02/27/2025 CBC WITH DIFFE RENTI AL/PL ATELE T basos 0 % not estab. normal Not Available [facility] ([facility]) [address] [facility], [place], [address], 02/27/2025 09:28:30 02/27/20 25 02/27/2025 CBC WITH DIFFE RENTI AL/PL ATELE T immature cells PLASTIC FINISHER Not Available [facility] ([facility]) [address] [facility], [place], [address], 02/27/2025 09:28:30 02/27/20 25 02/27/2025 CBC WITH DIFFE RENTI AL/PL ATELE T neutrophils (absolute) 12.9 x10e3 /uL 1.4-7. 0 above high normal Not Available [facility] ([facility]) [address] [facility], [place], [address], 02/27/2025 09:28:30 02/27/20 25 02/27/2025 CBC WITH DIFFE RENTI AL/PL ATELE T lymphs (absolute) 0.8 x10e3 /uL 0.7-3. 1 normal Not Available [facility] ([facility]) [address] [facility], [place], [address], 02/27/2025 09:28:30 02/27/20 25 02/27/2025 CBC WITH DIFFE RENTI AL/PL ATELE T monocytes(ab solute) 0.5 x10e3 /uL 0.1-0. 9 normal Not Available [facility] ([facility]) [address] [facility], [place], [address], 02/27/2025 09:28:30 02/27/20 25 02/27/2025 CBC WITH DIFFE RENTI AL/PL ATELE T eos (absolute) 0.0 x10e3 /uL 0.0-0. 4 normal Not Available [facility] ([facility]) [address] [facility], [place], [address], 02/27/2025 09:28:30 02/27/20 25 02/27/2025 CBC WITH DIFFE RENTI AL/PL ATELE T baso (absolute) 0.0 x10e3 /uL 0.0-0. 2 normal Not Available [facility] ([facility]) [address] [facility], [place], [address], 02/27/2025 09:28:30 02/27/20 25 02/27/2025 CBC WITH DIFFE RENTI AL/PL ATELE T immature granulocytes 0 % not estab. Not Available [facility] ([facility]) [address] [place], [address], 02/27/2025 09:28:30 02/27/20 25 02/27/2025 CBC WITH DIFFE RENTI AL/PL ATELE T immature grans (abs) 0.0 x10e3 /uL 0.0-0. 1 Not Available [facility] ([facility]) [address], [place], [address], 02/27/2025 09:28:30 02/27/20 25 02/27/2025 CBC WITH DIFFE RENTI AL/PL ATELE T NRBC PLASTIC FINISHER Not Available [facility] ([facility]) [address], [place], [address], 02/27/2025 09:28:30 02/27/20 25 02/27/2025 CBC WITH DIFFE RENTI AL/PL ATELE T hematology comments: PLASTIC FINISHER Not Available [facility] ([facility]) [address], [place], [address], 02/27/2025 09:28:30 02/27/20 25 02/27/2025 COMP. METAB OLIC PANEL (14) glucose 87 mg/dL 70-99 normal Not Available [facility] ([facility]) [address] [place], [address], 02/27/2025 09:28:30 02/27/20 25 02/27/2025 COMP. METAB OLIC PANEL (14) BUN 46 mg/dL 8-27 above high normal Not Available [facility] ([facility]) [address] [place], [address], 02/27/2025 09:28:30 02/27/20 25 02/27/2025 COMP. METAB OLIC PANEL (14) creatinine 2.05 mg/dL 0.76-1 .27 above high normal Not Available [facility] ([facility]) [address] [place], [address], 02/27/2025 09:28:30 02/27/20 25 02/27/2025 COMP. METAB OLIC PANEL (14) eGFR 33 mL/mi n/1.7 3 >59 below low normal Not Available [facility] ([facility]) [address] [place], [address], 02/27/2025 09:28:30 02/27/20 25 02/27/2025 COMP. METAB OLIC PANEL (14) BUN/creatini ne ratio 22 10-24 normal Not Available [facility] ([facility]) [address] [facility], [place], [address], 02/27/2025 09:28:30 02/27/20 25 02/27/2025 COMP. METAB OLIC PANEL (14) sodium 141 mmol/ L 134-14 4 normal Not Available [facility] ([facility]) [address] [facility], [place], [address], 02/27/2025 09:28:30 02/27/20 25 02/27/2025 COMP. METAB OLIC PANEL (14) potassium 4.6 mmol/ L 3.5-5. 2 normal Not Available [facility] ([facility]) [address] [facility], [place], [address], 02/27/2025 09:28:30 02/27/20 25 02/27/2025 COMP. METAB OLIC PANEL (14) chloride 106 mmol/ L 96-106 normal Not Available [facility] ([facility]) [address] [facility], [place], [address], 02/27/2025 09:28:30 02/27/20 25 02/27/2025 COMP. METAB OLIC PANEL (14) carbon dioxide, total 20 mmol/ L 20-29 normal Not Available [facility] ([facility]) [address] [facility], [place], [address], 02/27/2025 09:28:30 02/27/20 25 02/27/2025 COMP. METAB OLIC PANEL (14) calcium 10.1 mg/dL 8.6-10 .2 normal Not Available [facility] ([facility]) [address] [facility], [place], [address], 02/27/2025 09:28:30 02/27/20 25 02/27/2025 COMP. METAB OLIC PANEL (14) protein, total 6.7 g/dL 6.0-8. 5 normal Not Available [facility] ([facility]) [address] [facility] [place], [address], 02/27/2025 09:28:30 02/27/20 25 02/27/2025 COMP. METAB OLIC PANEL (14) albumin 4.2 g/dL 3.8-4. 8 normal Not Available [facility] ([facility]) [address] [facility], [place], [address], 02/27/2025 09:28:30 02/27/20 25 02/27/2025 COMP. METAB OLIC PANEL (14) globulin, total 2.5 g/dL 1.5-4. 5 Not Available [facility] ([facility]) [address] [facility] [place], [address], 02/27/2025 09:28:30 02/27/20 25 02/27/2025 COMP. METAB OLIC PANEL (14) bilirubin, total 0.2 mg/dL 0.0-1. 2 normal Not Available [facility] ([facility]) [address] [facility] [place], [address], 02/27/2025 09:28:30 02/27/20 25 02/27/2025 COMP. METAB OLIC PANEL (14) alkaline phosphatase 79 IU/L 44-121 normal Not Available [facility] ([facility]) [address] [place], [address], 02/27/2025 09:28:30 02/27/20 25 02/27/2025 COMP. METAB OLIC PANEL (14) AST (SGOT) 19 IU/L 0-40 normal Not Available [facility] ([facility]) [address] [facility] [place], [address], 02/27/2025 09:28:30 02/27/20 25 02/27/2025 COMP. METAB OLIC PANEL (14) ALT (SGPT) 17 IU/L 0-44 normal Not Available [facility] ([facility]) [address] [facility] [place], [address], 02/27/2025 09:28:30 02/27/20 25 02/27/2025 LIPID PANEL cholesterol, total 192 mg/dL 100-19 9 normal Not Available [facility] ([facility]) [address] [place], [address], 02/27/2025 09:28:31 02/27/20 25 02/27/2025 LIPID PANEL triglyceride s 51 mg/dL 0-149 normal Not Available [facility] ([facility]) [address] [place], [address], 02/27/2025 09:28:31 02/27/20 25 02/27/2025 LIPID PANEL HDL cholesterol 65 mg/dL >39 normal Not Available [facility] ([facility]) [address] [place], [address], 02/27/2025 09:28:31 02/27/20 25 02/27/2025 LIPID PANEL VLDL cholesterol [place] 10 mg/dL 5-40 Not Available [facility] ([facility]) [address] [place], [address], 02/27/2025 09:28:31 02/27/20 25 02/27/2025 LIPID PANEL LDL chol calc ([facility]) 117 mg/dL 0-99 above high normal Not Available [facility] ([facility]) [address] [place], [address], 02/27/2025 09:28:31 02/27/20 25 02/27/2025 LIPID PANEL 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 Not Available [facility] ([facility]) [address] [place], [address], 02/27/2025 09:28:31 02/27/20 25 02/27/2025 HCV ANTIB JAIME CASCA DE(PC R/GEN O) HCV Ab Non Reacti ve non reacti ve Not Available [facility] ([facility]) [address] [facility], [place], [address], 02/27/2025 09:28:31 02/27/20 25 02/27/2025 HCV ANTIB JAIME CASCA DE(PC R/GEN O) interpretati on: Commen t Not infec dacia with HCV unles s early or acute infec tion is suspe cted (whic h may be delay ed in an immun ocomp romis ed indiv idual ), or other evide nce exist s to indic ate HCV infec tion. Not Available [facility] ([facility]) [address] [facility], [place], [address], 02/27/2025 09:28:31 02/27/2002/27/2025 HEMOG LOBIN A1C hemoglobin A1C 7.2 % 4.8-5. 6 above high normal Predi abete s: 5.7 - 6.4 Diabe aguila: >6.4 Glyce blade contr ol for adult s with diabe aguila: <7.0 Not Available [facility] ([facility]) [address] [facility], [place], [address], 02/27/2025 09:28:32 02/27/2002/27/2025 PROST ATE-S PECIF IC [...] of yokasta gonzalez se. Not Available [facility] ([facility]) [address], [place], [address], 02/27/2025 09:28:32 03/21/20 25 03/21/2025 urina lysis , dipst ick Leukocytes Negati ve Not Available [address], [address], 03/21/2025 17:43:51 03/21/20 25 03/21/2025 urina lysis , dipst ick Nitrite negati ve Not Available [address], [address], 03/21/2025 17:43:51 03/21/20 25 03/21/2025 urina lysis , dipst ick Urobilinogen .2 Not Available [address], [address], 03/21/2025 17:43:51 03/21/20 25 03/21/2025 urina lysis , dipst ick Protein 30 Not Available [address], [address], 03/21/2025 17:43:51 03/21/20 25 03/21/2025 urina lysis , dipst ick pH 5.5 Not Available [address], [address], 03/21/2025 17:43:51 03/21/20 25 03/21/2025 urina lysis , dipst ick Blood Hemoly zed: Trace Not Available [address], [address], 03/21/2025 17:43:51 03/21/20 25 03/21/2025 urina lysis , dipst ick Specific [place] 1.025 Not Available [address], [address], 03/21/2025 17:43:51 03/21/20 25 03/21/2025 urina lysis , dipst ick Ketone Negati ve Not Available [address], [address], 03/21/2025 17:43:51 03/21/20 25 03/21/2025 urina lysis , dipst ick Bilirubin Negati ve Not Available [address], [address], 03/21/2025 17:43:51 03/21/20 25 03/21/2025 urina lysis , dipst ick Glucose Negati ve Not Available [address], [address], 03/21/2025 17:43:51 04/18/20 25 04/19/2025 CBC WITH DIFFE RENTI AL/PL ATELE T WBC 5.3 x10e3 /uL 3.4-10 .8 normal Not Available [facility] ([facility]) [address] [place], [address], 04/19/2025 05:06:43 04/18/20 25 04/19/2025 CBC WITH DIFFE RENTI AL/PL ATELE T RBC 4.07 x10e6 /uL 4.14-5 .80 below low normal Not Available [facility] ([facility]) [address] [facility], [place], [address], 04/19/2025 05:06:43 04/18/20 25 04/19/2025 CBC WITH DIFFE RENTI AL/PL ATELE T hemoglobin 12.5 g/dL 13.0-1 7.7 below low normal Not Available [facility] ([facility]) [address] [place], [address], 04/19/2025 05:06:43 04/18/20 25 04/19/2025 CBC WITH DIFFE RENTI AL/PL ATELE T hematocrit 39.9 % 37.5-5 1.0 normal Not Available [facility] ([facility]) [address] [place], [address], 04/19/2025 05:06:43 04/18/2004/19/2025 CBC WITH DIFFE RENTI AL/PL ATELE T MCV 98 fL 79-97 above high normal Not Available [facility] ([facility]) [address] [place], [address], 04/19/2025 05:06:43 04/18/20 25 04/19/2025 CBC WITH DIFFE RENTI AL/PL ATELE T MCH 30.7 pg 26.6-3 3.0 normal Not Available [facility] ([facility]) [address] [place], [address], 04/19/2025 05:06:43 04/18/20 25 04/19/2025 CBC WITH DIFFE RENTI AL/PL ATELE T MCHC 31.3 g/dL 31.5-3 5.7 below low normal Not Available [facility] ([facility]) [address] [place], [address], 04/19/2025 05:06:43 04/18/20 25 04/19/2025 CBC WITH DIFFE RENTI AL/PL ATELE T RDW 12.5 % 11.6-1 5.4 Not Available [facility] ([facility]) [address] [place], [address], 04/19/2025 05:06:43 04/18/20 25 04/19/2025 CBC WITH DIFFE RENTI AL/PL ATELE T platelets 236 x10e3 /uL 150-45 0 normal Not Available [facility] ([facility]) [address] [place], [address], 04/19/2025 05:06:43 04/18/20 25 04/19/2025 CBC WITH DIFFE RENTI AL/PL ATELE T neutrophils 62 % not estab. normal Not Available [facility] ([facility]) [address] [place], [address], 04/19/2025 05:06:43 04/18/20 25 04/19/2025 CBC WITH DIFFE RENTI AL/PL ATELE T lymphs 25 % not estab. normal Not Available [facility] ([facility]) [address] [place], [address], 04/19/2025 05:06:43 04/18/20 25 04/19/2025 CBC WITH DIFFE RENTI AL/PL ATELE T monocytes 6 % not estab. normal Not Available [facility] ([facility]) [address] [place], [address], 04/19/2025 05:06:43 04/18/20 25 04/19/2025 CBC WITH DIFFE RENTI AL/PL ATELE T eos 6 % not estab. normal Not Available [facility] ([facility]) [address] [place], [address], 04/19/2025 05:06:43 04/18/20 25 04/19/2025 CBC WITH DIFFE RENTI AL/PL ATELE T basos 1 % not estab. normal Not Available [facility] ([facility]) [address] [place], [address], 04/19/2025 05:06:43 04/18/20 25 04/19/2025 CBC WITH DIFFE RENTI AL/PL ATELE T immature cells PLASTIC FINISHER Not Available [facility] ([facility]) [address] [place], [address], 04/19/2025 05:06:43 04/18/20 25 04/19/2025 CBC WITH DIFFE RENTI AL/PL ATELE T neutrophils (absolute) 3.3 x10e3 /uL 1.4-7. 0 normal Not Available [facility] ([facility]) [address] [facility], [place], [address], 04/19/2025 05:06:43 04/18/20 25 04/19/2025 CBC WITH DIFFE RENTI AL/PL ATELE T lymphs (absolute) 1.3 x10e3 /uL 0.7-3. 1 normal Not Available [facility] ([facility]) [address] [place], [address], 04/19/2025 05:06:43 04/18/20 25 04/19/2025 CBC WITH DIFFE RENTI AL/PL ATELE T monocytes(ab solute) 0.3 x10e3 /uL 0.1-0. 9 normal Not Available [facility] ([facility]) [address] [place], [address], 04/19/2025 05:06:43 04/18/20 25 04/19/2025 CBC WITH DIFFE RENTI AL/PL ATELE T eos (absolute) 0.3 x10e3 /uL 0.0-0. 4 normal Not Available [facility] ([facility]) [address] [place], [address], 04/19/2025 05:06:43 04/18/20 25 04/19/2025 CBC WITH DIFFE RENTI AL/PL ATELE T baso (absolute) 0.1 x10e3 /uL 0.0-0. 2 normal Not Available [facility] ([facility]) [address] [place], [address], 04/19/2025 05:06:43 04/18/20 25 04/19/2025 CBC WITH DIFFE RENTI AL/PL ATELE T immature granulocytes 0 % not estab. Not Available [facility] ([facility]) [address] [facility], [place], [address], 04/19/2025 05:06:43 04/18/20 25 04/19/2025 CBC WITH DIFFE RENTI AL/PL ATELE T immature grans (abs) 0.0 x10e3 /uL 0.0-0. 1 Not Available [facility] ([facility]) [address] [facility], [place], [address], 04/19/2025 05:06:43 04/18/20 25 04/19/2025 CBC WITH DIFFE RENTI AL/PL ATELE T NRBC PLASTIC FINISHER Not Available [facility] ([facility]) [address] [facility], [place], [address], 04/19/2025 05:06:43 04/18/20 25 04/19/2025 CBC WITH DIFFE RENTI AL/PL ATELE T hematology comments: PLASTIC FINISHER Not Available [facility] ([facility]) [address] [facility], [place], [address], 04/19/2025 05:06:43 04/18/20 25 04/19/2025 COMP. METAB OLIC PANEL (14) glucose 121 mg/dL 70-99 above high normal Not Available [facility] ([facility]) [address] [facility], [place], [address], 04/19/2025 05:06:44 04/18/20 25 04/19/2025 COMP. METAB OLIC PANEL (14) BUN 35 mg/dL 8-27 above high normal Not Available [facility] ([facility]) [address] [facility], [place], [address], 04/19/2025 05:06:44 04/18/20 25 04/19/2025 COMP. METAB OLIC PANEL (14) creatinine 2.02 mg/dL 0.76-1 .27 above high normal Not Available [facility] ([facility]) [address] [place], [address], 04/19/2025 05:06:44 04/18/20 25 04/19/2025 COMP. METAB OLIC PANEL (14) eGFR 34 mL/mi n/1.7 3 >59 below low normal Not Available [facility] ([facility]) [address] [place], [address], 04/19/2025 05:06:44 04/18/20 25 04/19/2025 COMP. METAB OLIC PANEL (14) BUN/creatini ne ratio 17 10-24 normal Not Available [facility] ([facility]) [address] [facility] [place], [address], 04/19/2025 05:06:44 04/18/20 25 04/19/2025 COMP. METAB OLIC PANEL (14) sodium 142 mmol/ L 134-14 4 normal Not Available [facility] ([facility]) [address] [facility], [place], [address], 04/19/2025 05:06:44 04/18/20 25 04/19/2025 COMP. METAB OLIC PANEL (14) potassium 4.5 mmol/ L 3.5-5. 2 normal Not Available [facility] ([facility]) [address] [facility], [place], [address], 04/19/2025 05:06:44 04/18/20 25 04/19/2025 COMP. METAB OLIC PANEL (14) chloride 107 mmol/ L 96-106 above high normal Not Available [facility] ([facility]) [address] [facility] [place], [address], 04/19/2025 05:06:44 04/18/20 25 04/19/2025 COMP. METAB OLIC PANEL (14) carbon dioxide, total 17 mmol/ L 20-29 below low normal Not Available [facility] ([facility]) [address] [facility] [place], [address], 04/19/2025 05:06:44 04/18/20 25 04/19/2025 COMP. METAB OLIC PANEL (14) calcium 9.6 mg/dL 8.6-10 .2 normal Not Available [facility] ([facility]) [address] [place], [address], 04/19/2025 05:06:44 04/18/20 25 04/19/2025 COMP. METAB OLIC PANEL (14) protein, total 6.5 g/dL 6.0-8. 5 normal Not Available [facility] ([facility]) [address] [place], [address], 04/19/2025 05:06:44 04/18/20 25 04/19/2025 COMP. METAB OLIC PANEL (14) albumin 4.3 g/dL 3.8-4. 8 normal Not Available [facility] ([facility]) [address] [place], [address], 04/19/2025 05:06:44 04/18/20 25 04/19/2025 COMP. METAB OLIC PANEL (14) globulin, total 2.2 g/dL 1.5-4. 5 Not Available [facility] ([facility]) [address] [place], [address], 04/19/2025 05:06:44 04/18/20 25 04/19/2025 COMP. METAB OLIC PANEL (14) bilirubin, total 0.6 mg/dL 0.0-1. 2 normal Not Available [facility] ([facility]) [address] [place], [address], 04/19/2025 05:06:44 04/18/20 25 04/19/2025 COMP. METAB OLIC PANEL (14) alkaline phosphatase 71 IU/L 44-121 normal Not Available [facility] ([facility]) [address] [place], [address], 04/19/2025 05:06:44 04/18/20 25 04/19/2025 COMP. METAB OLIC PANEL (14) AST (SGOT) 23 IU/L 0-40 normal Not Available [facility] ([facility]) [address] [facility] [place], [address], 04/19/2025 05:06:44 04/18/20 25 04/19/2025 COMP. METAB OLIC PANEL (14) ALT (SGPT) 17 IU/L 0-44 normal Not Available [facility] ([facility]) [address] [facility] [place], [address], 04/19/2025 05:06:44 04/18/20 25 04/19/2025 LIPID PANEL cholesterol, total 139 mg/dL 100-19 9 normal Not Available [facility] ([facility]) [address] [facility] [place], [address], 04/19/2025 05:06:45 04/18/20 25 04/19/2025 LIPID PANEL triglyceride s 60 mg/dL 0-149 normal Not Available [facility] ([facility]) [address] [place], [address], 04/19/2025 05:06:45 04/18/20 25 04/19/2025 LIPID PANEL HDL cholesterol 57 mg/dL >39 normal Not Available [facility] ([facility]) [address] [place], [address], 04/19/2025 05:06:45 04/18/20 25 04/19/2025 LIPID PANEL VLDL cholesterol sharona 13 mg/dL 5-40 Not Available [facility] ([facility]) [address] [place], [address], 04/19/2025 05:06:45 04/18/20 25 04/19/2025 LIPID PANEL LDL chol calc ([facility]) 69 mg/dL 0-99 Not Available [facility] ([facility]) [address] [place], [address], 04/19/2025 05:06:45 04/18/20 25 04/19/2025 LIPID PANEL 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 Not Available [facility] ([facility]) [address] [facility], [place], [address], 04/19/2025 05:06:45 04/18/20 25 04/24/2025 IRON AND TIBC iron bind.cap.(TI BC) 300 ug/dL 250-45 0 normal Not Available [facility] ([facility]) [address] [facility], [place], [address], 04/24/2025 04:07:12 04/18/20 25 04/24/2025 IRON AND TIBC UIBC 183 ug/dL 111-34 3 normal Not Available [facility] ([facility]) [address] [facility], [place], [address], 04/24/2025 04:07:12 04/18/20 25 04/24/2025 IRON AND TIBC iron 117 ug/dL 38-169 normal Not Available [facility] ([facility]) [address] [facility], [place], [address], 04/24/2025 04:07:12 04/18/20 25 04/24/2025 IRON AND TIBC iron saturation 39 % 15-55 normal Not Available [facility] ([facility]) [address] [place], [address], 04/24/2025 04:07:12 04/18/20 25 04/23/2025 MARY EN AUTHO RIZAT ION written authorizatio n Jaspal t Mary en Autho rizat ion Recei noel. Autho rizat ion recei noel from MARY [facility] RE[facility] ST 04-23 Logge d by Sandeep Nieto an Not Available [facility] ([facility]) [address] [place], [address], 04/24/2025 04:07:12 04/18/20 25 04/18/2025 HbA1c (hemo globi n A1c), blood HbA1c 6.7 Not Available [address], [address], 04/18/2025 09:43:05 05/16/20 25 05/16/2025 HbA1c (hemo globi n A1c), blood HbA1c 6.8 Not Available [address], [address], 05/16/2025 13:26:07 02/20/20 25 02/19/2025 XR, shoul crissy, 2 or more view No observ ation record ed. [address] (Radiology) [address] , [place], [address], 02/21/2025 10:25:13 02/20/20 25 02/19/2025 XR, shoul crissy, 2 or more view No observ ation record ed. [address] (Radiology) [address] , [place], [address], 02/21/2025 10:24:46 05/07/20 25 05/05/2025 XR, abdom en No observ ation record ed. [facility] [address], [place], [address], 05/07/2025 09:42:29 05/16/20 25 05/16/2025 XR, chest No observ ation record ed. [email or web address] [facility] [address], [place], [address], 05/19/2025 09:20:50 05/16/20 25 05/16/2025 CT, angio gram, chest , w/o contr ast No observ ation record ed. [email or web address] [facility] [address], [place], [place], [address], 05/19/2025 09:41:06 05/16/20 25 05/16/2025 CT, head + brain , w/o contr ast No observ ation record ed. [address], [place], [place], [address], 05/19/2025 09:40:47 05/16/20 25 05/16/2025 CT, lumba r spine , w/wo contr ast No observ ation record ed. [address], [place], [place], [address], 05/19/2025 09:40:27 05/16/20 25 05/16/2025 cardi ac stres s test No observ ation record ed. [address], [place], [place], [address], 05/29/2025 08:44:47 05/16/20 25 05/16/2025 elect rasta diogr am, routi ne ECG, 12 leads min No observ ation record ed. [address], [place], [place], [address], 05/29/2025 08:44:14 05/23/20 25 05/23/2025 XR, abdom en No observ ation record ed. [address] (Radiology) [address] [place] [address] , [place], [address], 05/29/2025 08:42:01 05/26/20 CT, cervi sharona spine , w/o contr ast No observ ation record ed. Not Available 2024 10:34:15 06/15/20 25 06/15/2025 CT, head + brain , w/wo contr ast No observ ation record ed. [address], [place], [address], 06/16/2025 10:40:48 06/15/20 25 06/15/2025 CT, angio gram, head + neck, w/wo contr ast No observ ation record ed. [address], [place], [address], 06/16/2025 10:40:34 06/15/20 25 06/15/2025 CT, angio gram, head, w/ contr ast No observ ation record ed. [address], [place], [place], [address], 06/16/2025 10:40:20 06/15/20 25 06/15/2025 CT, chest + abdom en + pelvi s, w/ contr ast No observ ation record ed. [address], [place], [address], 06/16/2025 10:38:37 06/17/20 25 06/15/2025 elect rocar diogr am No observ ation record ed. [address], [place], [address], 06/18/2025 08:25:51 06/18/20 25 06/18/2025 CT, head + brain , w/o contr ast No observ ation record ed. [address] (Radiology) [address], [place], [address], 06/18/2025 16:49:00 07/27/20 25 07/27/2025 XR, chest , 1 view No observ ation record ed. [address] (Radiology) [place], [address], 07/29/2025 11:19:27 07/27/20 25 07/27/2025 CT, chest , w/o contr ast No observ ation record ed. [address] (Radiology) [address] [place], [address], 07/29/2025 11:18:41 07/27/20 25 07/27/2025 CT, abdom en + pelvi s, w/ contr ast No observ ation record ed. [address] (Radiology) [address] , [place], [address], 07/29/2025 11:18:24 07/28/20 25 07/28/2025 US, santosle x, dorothyou s, lower extre mity No observ ation record ed. [address] (Radiology) [address] , [place], [address], 07/29/2025 11:15:30 07/28/2007/28/2025 US, doppl er echoc ardio gram No observ ation record ed. [address] (Radiology) [address] [place], [address], 07/29/2025 11:12:55 Result Notes None recorded. Problems Name Problem SNOMED Code Status Onset Date Resolution Date Notes Provider Name and Address Organization Details Recorded Time Infection of toe 382819162 Completed 202310/31/2024 Samantha Vallecillo NP [address] [place] [address], [address], [place] [employer] 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 4 12:09:13 Type 2 diabetes mellitus without complicatio n 935645436 Completed 202303/21/2025 Samantha Vallecillo NP [address] [place], [address], [place] [employer] 5 10:01:28 Gastroesoph ageal reflux disease without esophagitis 711386076 Active 2023 Samantha Vallecillo NP [address] [place], [address], [employer] 4 12:09:07 Chronic gouty arthritis 41750994 Active 2023 Samantha Vallecillo NP [address] [place] [address], [address], [employer] 4 12:09:05 Body mass index 30+ - obesity 746142253 Active 2023 Samantha Vallecillo NP [address] [place] [address], [address], [employer] 4 12:09:30 Hypertensiv e disorder 61180769 Active 2023 Samantha Vallecillo NP [address] [place] [address], [address], [employer] 4 12:09:25 Hyperlipide miguel 16922003 Active 2024 Samantha Vallecillo NP [address] [place] [address], [address], [employer] 5 09:07:34 Adjustment disorder with depressed mood 23432470 Active 2024 Samantha Vallecillo NP [address] [place] [address], [address], [employer] 5 09:07:38 Chronic kidney disease 974123463 Active 2024 Samantha Vallecillo NP [address] [place] [address], [address], [employer] 5 09:59:50 Type 2 diabetes mellitus 14563917 Active 2024 Samantha Vallecillo NP [address] [place] [address], [address], [employer] 5 10:01:21 Dizziness 509089709 Active 2024 Samantha Vallecillo NP [address] [place] [address], [address], [employer] 5 15:40:33 Anemia 648070995 Active 2024 Samantha Vallecillo, BONI [address] [place] [address], [address], [employer] 15:40:40 Kidney stone 09240406 Active 2024 Samantha Vallecillo, [employer] [address] [place] [address], [address], [place] [employer] 5 15:40:30 Chronic low back pain 399859574 Active 2024 Samantha Vallecillo, BONI [address] [place] [address], [address], [employer] 15:40:38 Urinary incontinenc e 925145571 Active 2024 Samantha Vallecillo NP [address] [place] [address], [address], [employer] 15:40:22 Thyroid nodule 241575325 Active 2024 Samantha Vallecillo NP [address] [place] [address], [address], [employer] 15:40:24 Low blood pressure 66182231 Active 2024 Samantha Vallecillo NP [address] [place] [address], [address], [employer] 5 15:40:28 Neck pain 83591556 Active 2024 Samantha Vallecillo NP [address] [place] [address], [address], [employer] 15:40:27 Problem Notes None recorded. Procedures Surgical History Date Name Laterality Status Provider Name and Address Organization Details Recorded Time complete repair of rotator cuff completed [employer] 07/03/2024 12:06:07 procedure on nerve completed [employer] 07/03/2024 12:06:55 total knee replacement completed [email or web address] 07/03/2024 12:07:10 Appendectomy completed Griselda Powell [employer] 07/03/2024 12:07:17 total replacement of hip completed [facility]isel[facility] [employer] 07/03/2024 12:07:28 Imaging Results None recorded. Procedure [...] Updated DateTime 5 175.26 cm 31.2 kg/m2 14422.0 9 g 92 /min 98 % 98 % 139/76 mm[Hg] [employer] 5 09:58:30 Date Recorded Body height Body mass index (BMI) Body weight Heart rate Oxygen saturation Oxygen saturation in Arterial blood by Pulse oximetry Systolic And Diastolic Provider Name and Address Organization Details Last Updated DateTime 5 175.26 cm 31.2 kg/m2 08821.0 9 g 70 /min 98 % 98 % 139/79 mm[Hg] [employer] 5 09:42:09 Date Recorded Body height Body mass index (BMI) Body weight Heart rate Oxygen saturation Oxygen saturation in Arterial blood by Pulse oximetry Systolic And Diastolic Provider Name and Address Organization Details Last Updated DateTime 5 175.26 cm 30.6 kg/m2 65649.3 2 g 106 /min 94 % 94 % 124/77 mm[Hg] Carolyn Ceja [employer] 5 13:15:48 Date Recorded Body height Body mass index (BMI) Body weight Heart rate Oxygen saturation Oxygen saturation in Arterial blood by Pulse oximetry Systolic And Diastolic Provider Name and Address Organization Details Last Updated DateTime 5 175.26 cm 29.8 kg/m2 74417.8 7 g 82 /min 96 % 96 % 136/78 mm[Hg] Carolyn Ceja [employer] 5 09:04:58 Date Recorded Body height Heart rate Oxygen saturation Oxygen saturation in Arterial blood by Pulse oximetry Systolic And Diastolic Provider Name and Address Organization Details Last Updated DateTime 5 175.26 cm 104 /min 98 % 98 % 86/55 mm[Hg] Carolyn [employer] 13:34:39 Social History Question Answer Notes LastModified by Organizat ion Details LastModified Time Tobacco Smoking Status Never Smoker Griselda yeung [employer] 07/03/2024 12:05:06 Is Your Home Air Conditioned? [...] Of Your Most Recent Tobacco Screening? 06/18/2025 [email or web address] Information not available 06/18/2025 What Is Your Relationship Status? Information not available 07/03/2024 Do You Use Your Seat Belt Or Car Seat Routinely? Yes Information not available 07/03/2024 Are You Sexually Active? No [email or web address] Information not available 10/31/2024 Do You Have Smoke And Carbon Monoxide Detectors In Your Home? Yes Information not available 07/03/2024 Are You Passively Exposed To Smoke? No Information no t available 07/03/2024 Are There Any Smokers In Your House? No Information not available 07/03/2024 Do You Participate In Social Media? Yes [email or web address] Information not available 10/31/2024 Has Tobacco Cessation Counseling Been Provided? No Information not available 07/03/2024 Have You Recently Traveled Abroad? No Information not available 07/03/2024 Do You Have Difficulty Walking Or Climbing Stairs? Yes Information not available 07/03/2024 Are You Currently In School? No [email or web address] Information not available 10/31/2024 Do You Have Any Dietary Restrictions? Yes [email or web address] Information not available 10/31/2024 Sex: Male Functional Status Question Answer Note LastModified by Organizat ion Details LastModified Time Do you use any illicit or recreational drugs? No Information not available 07/03/2024 Do you or have you ever used any other forms of tobacco or nicotine? No [email or web address] Information not available 10/31/2024 What is your level of alcohol consumption? None Information not available 07/03/2024 Are you currently employed? No Information not available 07/03/2024 Do you have access to reliable transportation? No [email or web address] Information not available 10/31/2024 Are you able [...] anxious, or unable to sleep at night)? [id number] [email or web address] Information not available 10/31/2024 Do you have difficulty concentrating, remembering or making decisions? No Information no t available 07/03/2024 Family History Nothing Reported. Medical History Condition Response Gout Y Hospitalizations N Emergency room visit since last appointm ent. Y Diabetes Y Hypertension Y Immunizations Vaccine Type Date Status Note Provider Nam e and Address Organization Details Recorded Time Influenza, high-dose, trivalent, PF 4 completed Samantha Vallecillo NP [address] [place] [address], [address], [employer] 11/02/2024 09:27:35 zoster recombinant 5 completed Samantha Vallecillo NP [address] [place], [address], [employer] 03/05/2025 13:28:44 Influenza, adjuvanted, trivalent, PF 7 completed Griselda yeung, [employer] 07/03/2024 11:45:29 Influenza, MDCK, quadrivalent, PF 8 completed Griselda yeung, [employer] 07/03/2024 11:45:29 Influenza, high-dose, quadrivalent, PF 0 completed Griselda yeung, [employer] 07/03/2024 11:45:30 Influenza, high-dose, quadrivalent, PF 1 completed Griselda yeung, [employer] 07/03/2024 11:45:30 Influenza, high-dose, quadrivalent, PF 2 completed Griselda yeung, [employer] 07/03/2024 11:45:30 Influenza, high-dose, quadrivalent, PF 3 completed Griselda yeung [employer] 07/03/2024 11:45:30 COVID-19, mRNA, LNP-S, PF, 100 mcg/0.5mL dose or 50 mcg/0.25mL dose 1 completed Griselda yeung [employer] 07/03/2024 11:45:30 COVID-19, mRNA, LNP-S, PF, 100 mcg/0.5mL dose or 50 mcg/0.25mL dose 1 completed Griselda yeung [employer] 07/03/2024 11:45:30 Pneumococcal conjugate PCV 13 8 completed Griselda yeung [employer] 07/03/2024 11:45:30 Past Encounters Encounter ID Performer Location Encounter Start Date Encounter Closed Date Diagnosis/Indication Diagnosis SNOMED-CT Code Diagnosis ICD10 Code Diagnosis IMO Codes Diagnosis Note [id number] Samantha Vallecillo NP [address] [address] 07/03/2024 11:33:53 07/03/2024 12:37:25 Infection of toe 846680339 L08.9 Onychomyco sis of toenails 090824761 B35.1 [id number] Samantha Vallecillo NP [place] [phone] 10/31/2024 10:57:05 10/31/2024 13:26:50 Type 2 diabetes mellitus without complication 673750032 E11.9 Body mass index 30+ - obesity 218559210 Z68.31 Hypertensive disorder 38 915664 I10 Chronic go uty arthritis 01848319 M1A.00X0 Gastroesop hageal reflux disease without esophagitis 534352345 K21.9 Screening for cardiovascular system disease 167105909 Z13.6 Active or passive immunization 928846112 Z23 [id number] Samantha Vallecillo NP [place] [phone] 01/30/2025 10:50:59 01/30/2025 12:11:12 Hyperlipidemia 76274838 E78.5 Type 2 ekaterina betes mellitus without complication 957020659 E11.9 Hypertensive disorder 38 574981 I10 Adult heal th examination 453976908 Z00.00 Adjustment disorder with depressed mood 65588173 F43.21 Body mass index 30+ - obesity 197935717 Z68.31 [id number] Samantha Vallecillo, BONI [place] [address] 0 02/26/2025 08:39:43 02/26/2025 09:34:34 Hypertensive disorder 83279072 I10 Type 2 ekaterina betes mellitus without complication 677507653 E11.9 Hyperlipidemia 40732703 E78.5 Hepatitis C screening 41 8463713 Z11.59 Screening for malignant neoplasm of prostate 767905125 Z12.5 Active or passive immunization 757225997 Z23 [id number] Samantha Vallecillo NP [place] [address] 0 03/21/2025 09:21:29 03/21/2025 10:43:45 Type 2 diabetes mellitus 69849930 E11.22 N18.32 0345471025 Hyperlipidemia 18223196 E78.5 Hypertensive disorder 38 231957 I10 [id number] Samantha Vallecillo NP [place] [address] 0 04/18/2025 09:22:01 04/18/2025 10:38:04 Type 2 diabetes mellitus 20744744 E11.22 N18.32 8666695734 Dizziness 843456743 R42 10518 Hyperlipidemia 14147122 E78.5 Chronic ki dney disease 737504465 N18.9 [id number] Samantha Vallecillo NP [place] [address] 0 05/16/2025 12:32:57 05/16/2025 14:23:00 Type 2 diabetes mellitus 37852262 E11.22 N18.32 7821603651 Chronic low back pain 27 8974211 M54.42 G89.29 41039129 Urinary incontinence 165 294223 N39.498 [id number] Samantha Vallecillo NP [address] [phone] 05/30/2025 08:30:23 05/30/2025 09:42:32 Chronic kidney disease 353499505 N18.9 Chronic go uty arthritis 80178168 M1A.00X0 Hyperlipidemia 98044592 E78.5 Hypertensive disorder 38 005628 I10 Type 2 ekaterina betes mellitus 35874136 E11.22 N18.32 0149236329 [id number] Samantha Vallecillo NP [address] [address] 06/18/2025 12:52:59 06/18/2025 15:09:36 Thyroid nodule 577647564 E04.1 87671 Neck pain 25845265 M54.2 24666 Low blood pressure 05975 003 I95.9 [id number] Health Concerns Section Related Observation LastModified by Organization Detai ls LastModified Time None Recorded Concern Status LastModified by Organization Details LastModified Time None Recorded Advance Directives Directive None Recorded Payers Insurance Date Sequence Insurance Name Policy Number Policy Muhammad Covered Member ID Muhammad Member ID Guarantor Name 06/29/2025 [place] [employer] [facility] Addison Peguero [id number] Addison Adamee 06/29/2025 1 [place] Addison Peguero [id number] Addison WuKee 05/09/2025 1 [place] [employer] - [facility] Addison Adamee [id number] Addison Peguero 06/29/2025 2 [employer] (MEDICARE SUPPLEMENT) Addison Peguero [id number] Addison Adamee 05/08/2025 SLIDING FEE SCHEDULE - [...] had a fever or chills. Carolyn yeung [employer] 03/22/2025 12:05:49 04/18/2025 text/html Patient presents for [...] well, still working on getting her into [facility]. Samantha Vallecillo NP [address] [place], [address], [employer] 04/21/2025 09:44:42 05/16/2025 text/html Patient presents for [...] not feel right. Samantha Vallecillo NP [address] [place], [address], [employer] 05/16/2025 19:21:49 05/30/2025 text/html Patient presents as walk-in for follow up after ER visit. He went to ER on 05/23/2025. States that he had some abdominal pain and had to go to ER. States that he was diagnosed with too much gas. States that he has made dietary changes and that has helped with his abdominal discomfort.He was also seen at [facility] on 05/16 r/t back pain.He sometimes has difficulty swallowing with really dry foods.Follows up with urology on 08/28/2025.He states he is doing much better overall.He is tolerating his jardiance without issue. Samantha Vallecillo NP [address] [place], [address], [employer] 06/01/2025 16:37:12 06/18/2025 text/html Patient presents for follow up. He has had multiple ER visits in the last few months and is here to follow up after most recent ER visit 3 days ago. He went to [facility] and his neck was hurting really bad. [...] His is in the [facility]. He continues to struggle with incontinence since he had his last kidney stone surgery. He really thinks he would benefit from going into the [facility], but he is unsure if he wants to do that. He does have neck pain today on the left side and feels dizzy and weak. Samantha Vallecillo NP [address] [place], [address], [employer] 06/18/2025 15:41:35
--- OUTSIDE RECORDS SUMMARY | 2025-08-15 08:55 | XMS_ITS | Encounter Summary ---
Author Organization [employer] ([place], [place], [place], [place]) Address [address] [place] [address] Care Team Providers Care Claim Review Medical Director Name Role Phone Samantha Vallecillo RELATIONSHIP ADVISOR Primary Care Provider Reason for Referral * Diagnostic X-Ray (Emergency) - New Request Specialty Diagnoses / Procedures Referred By Светлана t Referred To Contact Diagnoses Calculus of kidney Procedures X-ray abdomen KUB 1 view Derek Madrigal MD [address] [place] [address] [place] [address] Phone: tel: fax: Referral ID Status Reason Start Date Expiration Date V isits Requested Visits Authorized [id number] New Request 01/24/2025 01/24/2026 1 1 Encounter Details Date Type Department Care Team (Late st Contact Info) Description 01/24/2025 Outside Orders [facility] - [place] Office [address] [place] [address] Derek Madrigal MD [address] [place] [address] [address] [place] [address] Calculus of kidney (Primary Dx) Social History Tobacco Use Types Packs/Day Years Used Date Smoking Tobacco: Never Assessed Sex and Gender Information Value Date Recorded Sex Assigned at Not on file 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 Images reviewed, interpreted, and dictated by Dr. Daneila Benoit. Transcribed by Jose Rubi PA-C Narrative [...] kidney documented in this encounter Care Teams Claim Review Medical Director Relationship Specialty Start Date End Date Samantha Vallecillo NP [address] [place], [place] [address] PCP - General Nurse Practitioner 02/13/25 documented as of this encounter
[2025-08-15 09:57] LABS: Free T4 (Free Thyroxine) 1.40 ng/dl (0.78-2.19)
[2025-08-15 10:12] LABS: Thyroid Stimulating Hormone 0.76 uIU/mL (0.465-4.68)
== END 2025-08-15 23:59 | disposition home or self-care (01) ==
PROVIDERS: PCP Nurse Practitioner Family; Visit Provider Nurse Practitioner Family
DX: E04.2 Nontoxic multinodular goiter (principal)
CPT/HCPCS: 36415; 84439; 84443

== ENCOUNTER 2025-08-20 07:47 | Outpatient (CLI) | payer MEDICARE, OTHER, SELFPAY ==
--- OUTSIDE RECORDS SUMMARY | 2025-03-27 09:30 | XMS_ITS ---
Author Organization [facility] [place] Address [address] [place] [address] Care Team Providers Care Security Director Name Role Phone FRANK MATIAS Unavailable [phone] REASON FOR VISIT REF BY CANELO LEWIS FOR CKD Encounters Encounter Location Date Provider Diagnosis [facility] [address] [place] [address] 03/27/2025 FRANK MATIAS Plan Of Treatment No Information Progress Notes * EKATERINA CISNEROSDOB:1950 ( 75 yo M)Acc No.[id number]:03/27/2025 Progress Notes Patient: EKATERINA AMBROCIO Provider: Med MATIAS M.D., F.A.C.P. :1950 A ge:74 Y S ex:Male Date:03/27/2025 Address:[address] [place], [place] [id number] Subjective: * Chief Complaints: * 1 . REF BY CANELO LEWIS FOR CKD. * Medical History: Objective: * Vitals: Assessment: Plan: * Treatment: * * Electronic signature of DOROTHEA MATIAS MD on 08/20/2025 at 07:50 AM EDT Sign off status: Pending * Provider: Med MATIAS M.D., F.A.C.P. Date: 0 03/27/2025 Generated for Chay shi/Minerva/eTbettysmitting on: 07:50 AM EDT
--- OUTSIDE RECORDS SUMMARY | 2025-07-28 13:55 | XMS_ITS | Encounter Summary ---
Author Organization [facility] Address [address] [place] [address] Care Team Providers Care Insurance Application Investigator Name Role Phone Samantha Vallecillo AISHA Primary Care Provider [phone] Reason for Visit * Cardiac (Routine) - Closed Specialty Diagnoses / Procedures Referred By Светлана t Referred To Contact Diagnoses Precordial chest pain Palpitations Procedures Holter Monitor - 72 Hour Up To 15 Days Melanie Scott MD [address] [place] [address] Phone: tel: fax: [facility] [address] [place] [address] Phone: tel: fax: Referral ID Status Reason Start Date Expiration Date Visits Re quested Visits Authorized [id number] Closed 07/28/2025 10/27/2026 1 1 Encounter Details Date Type Department Care Team (Latest Contact Info) Description 07/28/2025 1:55 PM EDT Ancillary Procedure [facility] [place] [address] Precordial chest pain; Palpitations Social History [...] Palpitations documented in this encounter Care Teams Insurance Application Investigator Relationship Specialty Start Date End Date Samantha Vallecillo APRN [address] [place] [address] PCP - General Family Medicine 06/19/25 documented as of this encounter
--- OUTSIDE RECORDS SUMMARY | 2025-07-30 05:00 | XMS_ITS | Encounter Summary ---
Author Organization [facility] Address [address] [place] [address] Care Team Providers Care Principal Java Developer Name Role Phone Samantha Vallecillo APRN Primary Care Provider [phone] Encounter Details Date Type Department Care Team (Late st Contact Info) Description 07/30/2025 5:00 AM EDT Outside Facility Service [facility] [address] [place] [address] Melanie Scott MD [address] [place], [place] [id number] Social History Tobacco Use Types Packs/Day Years [...] on filedocumented in this encounter Care Teams Principal Java Developer Relationship Specialty Start Date End Date Samantha Vallecillo APRN [address] [place] [address] Road [place], [place] [phone] PCP - General Family Medicine 06/19/25 documented as of this encounter
--- OUTSIDE RECORDS SUMMARY | 2025-08-20 07:50 | XMS_ITS | Encounter Summary ---
Author Organization [employer] ([place], [place], [place], [place]) Address [address] [place] [address] Care Team Providers Care Lawn Service Supervisor Name Role Phone AvelSamantha brantley Yennifer PLATA Primary Care Provider [phone] Reason for Referral * Diagnostic X-Ray (Emergency) - Closed Specialty Diagnoses / Procedures Referred By Contac t Referred To Contact Radiology Diagnoses Calculus of kidney Procedures X-ray abdomen KUB 1 view Derek Madrigal MD [address] [place] [address] [place] [address] Phone: tel: fax: [facility] [address] [place] [address] [address] [place] [phone] Phone: tel: fax: Referral ID Status Reason Start Date Expiration Date Visits Re quested Visits Authorized [id number] Closed 05/05/2025 05/05/2026 1 1 Encounter Details Date Type Department Care Team (Late st Contact Info) Description 05/05/2025 Outside Orders [facility] [address] [place] [address] [address] [place] [phone] Derek Madrigal MD [address] [place] [address] [address] [place] [phone] Calculus of kidney (Primary Dx) Social History Tobacco Use Types Packs/Day Years Used Date Smoking Tobacco: Never Assessed Sex and Gender Information Value Date Recorded Sex Assigned at Not on file 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
--- OUTSIDE RECORDS SUMMARY | 2025-08-20 07:51 | XMS_ITS | Data Portability ---
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 Name Role Phone MATTHEW ROBERTS Primary Care Provider [phone] Assessment Encounter Date Assessment Date Assessment LastModified [...] average glucose, QN, blood 2023 024 [email or web address] [facility] (Laboratory), [address] [place], [address], 09:45:52 CBC w/ auto diff 2023 024 [facility] (Laboratory), [address] [place], [address], 4 13:38:29 lipid panel, serum 2023 024 [facility] (Laboratory), [address] [place], [address], 4 13:47:38 CMP, serum or plasma 2023 024 [facility] (Laboratory), [address] [place], [address], 4 13:46:33 CMP, serum or plasma 2023 024 [facility] (Laboratory), [address] [place], [address], 4 14:18:35 CBC w/ auto diff 2023 024 [facility] (Laboratory), [address] [place], [address], 4 13:21:00 hemoglobin A1c + average glucose, QN, blood 2023 024 [facility] (Laboratory), [address] [place], [address], 4 08:07:57 TSH, serum or plasma 2023 024 [facility] (Laboratory), [address] [place], [address], 4 14:18:33 lipid panel, serum 2023 024 [facility] (Laboratory), [address] [place], [address], 4 14:18:37 CMP, serum or plasma 2022 023 [facility] (Laboratory), [address] [place], [address], 3 12:08:17 CBC w/ auto diff 2022 023 [facility] (Laboratory), [address] [place], [address], 3 10:52:20 hemoglobin A1c + average glucose, QN, blood [facility]22 [facility] [address] [place], [address], 3 08:09:25 lipid panel, serum 2022 023 [facility] (Laboratory), [address] [place], [address], 3 12:08:19 Referral None recorded. Procedures None recorded. Surgeries None recorded. Imaging None recorded. Medication Orders allopurinol 100 mg tablet 2023 024 [facility], [address] [place] [address], [address], 4 16:10:09 glipizide ER 10 mg tablet, extended release 24 hr 2023 024 [facility], [place], [address], 4 10:58:15 pioglitazon e 15 mg tablet 2023 024 [facility], [place], [address], 4 10:58:17 famotidine 20 mg tablet 2023 024 [facility], [place], [address], 4 16:10:06 aspirin 81 mg tablet,reggie yed release 2023 024 [facility], [place], [address], 4 10:58:11 lisinopril 20 mg-hydrochl orothiazide 12.5 mg tablet 2023 024 [facility], [address] [place] [address], [place], [address], 4 16:10:10 tamsulosin 0.4 mg capsule 2023 [facility], [address] [place], [address], 16:10:12 allopurinol 100 mg tablet 2023 [facility], [address] [place] [address], [address], 4 11:25:37 glipizide ER 10 mg tablet, extended release 24 hr 2023 [facility], [address] [place] [address], [address], 4 11:25:36 famotidine 20 mg tablet 2023 [facility], [address] [place] [address], [address], 4 11:25:36 lisinopril 20 mg-hydrochl orothiazide 12.5 mg tablet 2023 024 [facility], [address] [place] [address], [address], 4 11:25:34 tamsulosin 0.4 mg capsule 2023 024 [facility], [address] [place] [address], [address], 4 11:25:35 Patient TargetsNo targets recorded. Patient InstructionsNo instructions recorded. Reason for Referral None Reported. Results Created Date Observation Date Name Description Value Unit Range Abnormal Flag Note LastModifiedBy Organization Detail LastModifiedTime 10/23/20 23 10/23/2023 CBC AUTO W DIFF WBC 6.2 10 4.5-11 .5 Not Available [facility] (Lab Registration) [address], [place], [address], 10/23/2023 10:52:20 10/23/20 23 10/23/2023 CBC AUTO W DIFF RBC 4.07 10 4.25-5 .57 low Not Available [facility] (Lab Registration) [address] [place], [address], 10/23/2023 10:52:20 10/23/20 23 10/23/2023 CBC AUTO W DIFF HGB 12.7 g/dL 13.5-1 7.2 low Not Available [facility] (Lab Registration) [address] [place], [address], 10/23/2023 10:52:20 10/23/20 23 10/23/2023 CBC AUTO W DIFF HCT 39.2 % 42.0-5 2.0 low Not Available [facility] (Lab Registration) [address] [place], [address], 10/23/2023 10:52:20 10/23/20 23 10/23/2023 CBC AUTO W DIFF MCV 96.3 fL 80-95 high Not Available [facility] (Lab Registration) [address] [place], [address], 10/23/2023 10:52:20 10/23/20 23 10/23/2023 CBC AUTO W DIFF MCH 31.2 pg 27.0-3 4.0 Not Available [facility] (Lab Registration) [address] [place], [address], 10/23/2023 10:52:20 10/23/20 23 10/23/2023 CBC AUTO W DIFF MCHC 32.4 g/dL 32.0-3 6.0 Not Available [facility] (Lab Registration) [address] [place], [address], 10/23/2023 10:52:20 10/23/20 23 10/23/2023 CBC AUTO W DIFF platelet count 251 10 150-45 0 Not Available [facility] (Lab Registration) [address], [place], [address], 10/23/2023 10:52:20 10/23/20 23 10/23/2023 CBC AUTO W DIFF RDW 13.4 % 12.3-1 5.1 Not Available [facility] (Lab Registration) [address] [place], [address], 10/23/2023 10:52:20 10/23/20 23 10/23/2023 CBC AUTO W DIFF MPV 10.5 fL 7.4-10 .4 high Not Available [facility] (Lab Registration) [address], [place], [address], 10/23/2023 10:52:20 10/23/20 23 10/23/2023 CBC AUTO W DIFF granulocyte% 66.2 % 40-75 Not Available [facility] (Lab Registration) [address] [place], [address], 10/23/2023 10:52:20 10/23/20 23 10/23/2023 CBC AUTO W DIFF lymphocyte% 23.5 % 15-57 Not Available [facility] (Lab Registration) [address] [place], [address], 10/23/2023 10:52:20 10/23/20 23 10/23/2023 CBC AUTO W DIFF monocyte% 6.4 % 4.0-12 .0 Not Available [facility] (Lab Registration) [address] [place], [address], 10/23/2023 10:52:20 10/23/20 23 10/23/2023 CBC AUTO W DIFF eosinophil% 3.2 % 0.0-4. 0 Not Available [facility] (Lab Registration) [address] [place], [address], 10/23/2023 10:52:20 10/23/20 23 10/23/2023 CBC AUTO W DIFF basophil% 0.5 % 0.0-1. 0 Not Available [facility] (Lab Registration) [address] [place], [address], 10/23/2023 10:52:20 10/23/20 23 10/23/2023 CBC AUTO W DIFF immature granulocytes % 0.2 % 0.0-0. 8 Not Available [facility] (Lab Registration) [address] [place], [address], 10/23/2023 10:52:20 10/23/20 23 10/23/2023 CBC AUTO W DIFF granulocyte# 4.12 10 Not Available [facility] (Lab Registration) [address] [place], [address], 10/23/2023 10:52:20 10/23/20 23 10/23/2023 CBC AUTO W DIFF lymphocyte# 1.46 10 Not Available [facility] (Lab Registration) [address] [place], [address], 10/23/2023 10:52:20 10/23/20 23 10/23/2023 CBC AUTO W DIFF monocyte# 0.40 10 Not Available [facility] (Lab Registration) [address] [place], [address], 10/23/2023 10:52:20 10/23/20 23 10/23/2023 CBC AUTO W DIFF eosinophil# 0.20 10 Not Available [facility] (Lab Registration) [address] [place], [address], 10/23/2023 10:52:20 10/23/20 23 10/23/2023 CBC AUTO W DIFF basophil# 0.03 10 Not Available [facility] (Lab Registration) [address] [place], [address], 10/23/2023 10:52:20 10/23/20 23 10/23/2023 CBC AUTO W DIFF immature granulocytes # 0.01 10 Not Available [facility] (Lab Registration) [address] [place], [address], 10/23/2023 10:52:20 10/23/20 23 10/23/2023 CBC AUTO W DIFF manual differential NO Not Available [facility] (Lab Registration) [address] [place], [address], 10/23/2023 10:52:20 10/23/20 23 10/23/2023 CBC AUTO W DIFF note Unles s other bowles noted testi ng perfo rmed at: [facility] [address] [place] [address] [phone] Wesley anaya MD CLIA: [id number] Not Available [facility] (Lab Registration) [address], [place], [address], 10/23/2023 10:52:20 10/23/20 23 10/23/2023 COMP METAB OLIC PANEL sodium 139 mmol/ L 136-14 5 Not Available [facility] (Lab Registration) [address], [place], [address], 10/23/2023 12:08:17 10/23/20 23 10/23/2023 COMP METAB OLIC PANEL potassium 4.8 mmol/ L 3.5-5. 1 Not Available [facility] (Lab Registration) [address] [place], [address], 10/23/2023 12:08:17 10/23/20 23 10/23/2023 COMP METAB OLIC PANEL chloride 104 mmol/ L 98-107 Not Available [facility] (Lab Registration) [address] [place], [address], 10/23/2023 12:08:17 10/23/20 23 10/23/2023 COMP METAB OLIC PANEL carbon dioxide 26 mmol/ L 21-32 Not Available [facility] (Lab Registration) [address] [place], [address], 10/23/2023 12:08:17 10/23/20 23 10/23/2023 COMP METAB OLIC PANEL anion gap 9.0 Not Available [facility] (Lab Registration) [address] [place], [address], 10/23/2023 12:08:17 10/23/20 23 10/23/2023 COMP METAB OLIC PANEL glucose 251 mg/dL 70-110 high Not Available [facility] (Lab Registration) [address] [place], [address], 10/23/2023 12:08:17 10/23/20 23 10/23/2023 COMP METAB OLIC PANEL blood urea nitrogen 33 mg/dL 7-18 high Not Available [facility] (Lab Registration) [address] [place], [address], 10/23/2023 12:08:17 10/23/20 23 10/23/2023 COMP METAB OLIC PANEL creatinine 1.9 mg/dL 0.8-1. 3 high Not Available [facility] (Lab Registration) [address] [place], [address], 10/23/2023 12:08:17 10/23/20 23 10/23/2023 COMP METAB OLIC PANEL BUN/creatini ne ratio 17.4 ratio 9-21 Not Available [facility] (Lab Registration) [address] [place], [address], 10/23/2023 12:08:17 10/23/20 23 10/23/2023 COMP METAB OLIC PANEL estimated glom filtration rate 37 mL/mi n >60- low Not Available [facility] (Lab Registration) [address] [place], [address], 10/23/2023 12:08:17 10/23/20 23 10/23/2023 COMP METAB OLIC PANEL total protein 6.9 g/dL 6.4-8. 2 Not Available [facility] (Lab Registration) [address] [place], [address], 10/23/2023 12:08:17 10/23/20 23 10/23/2023 COMP METAB OLIC PANEL albumin 3.9 g/dL 3.4-5. 0 Not Available [facility] (Lab Registration) [address] [place], [address], 10/23/2023 12:08:17 10/23/20 23 10/23/2023 COMP METAB OLIC PANEL calcium 9.8 mg/dL 8.5-10 .1 Not Available [facility] (Lab Registration) [address] [place], [address], 10/23/2023 12:08:17 10/23/20 23 10/23/2023 COMP METAB OLIC PANEL corrected calcium 9.9 mg/dL 8.5-10 .1 Not Available [facility] (Lab Registration) [address] [place], [address], 10/23/2023 12:08:17 10/23/20 23 10/23/2023 COMP METAB OLIC PANEL bilirubin total 0.8 mg/dL 0.4-1. 5 Not Available [facility] (Lab Registration) [address] [place], [address], 10/23/2023 12:08:17 10/23/20 23 10/23/2023 COMP METAB OLIC PANEL AST (SGOT) 23 U/L 15-37 Not Available [facility] (Lab Registration) [address] [place], [address], 10/23/2023 12:08:17 10/23/20 23 10/23/2023 COMP METAB OLIC PANEL ALT (SGPT) 35 U/L 12-78 Not Available [facility] (Lab Registration) [address] [place], [address], 10/23/2023 12:08:17 10/23/20 23 10/23/2023 COMP METAB OLIC PANEL alk phosphatase 91 U/L Not Available [facility] (Lab Registration) [address] [place], [address], 10/23/2023 12:08:17 10/23/20 23 10/23/2023 COMP METAB OLIC PANEL note Unles s other bowles noted testi ng perfo rmed at: [facility] [address] [address] [phone] Wesley anaya MD CLIA: [id number] Not Available [facility] (Lab Registration) [address] , [place], [address], 10/23/2023 12:08:17 10/23/20 23 10/23/2023 LIPID PANEL triglyceride 86 mg/dL 20-200 [employer] (NCEP ) has set the follo wing guide lines for Fasti ng Trigl yceri selvin: ADAMARIS L: <150 mg/dL BORDE RLINE HIGH: 150 - 199 mg/dL HIGH: 200 - 499 mg/dL VERY HIGH: > or =500 mg/dL Not Available [facility] (Lab Registration) [address] , [place], [address], 10/23/2023 12:08:19 10/23/20 23 10/23/2023 LIPID PANEL cholesterol 228 mg/dL 0-200 high [employer] (NCEP ) has set the follo wing guide lines for Fasti ng Susi stero l: SELAM ABLE: <200 mg/dL BORDE RLINE HIGH: 200 - 239 mg/dL HIGH: > or =240 mg/dL Not Available [facility] (Lab Registration) [address] [place], [address], 10/23/2023 12:08:19 10/23/2010/23/2023 LIPID PANEL HDL cholesterol 72 mg/dL 60- [employer] (NCEP ) has set the follo wing guide lines for Fasti ng HDL Susi stero l: LOW HDL: <40 mg/dL ADAMARIS L: 40 - 60 mg/dL SELAM ABLE: >60 mg/dL Not Available [facility] (Lab Registration) [address] [place], [address], 10/23/2023 12:08:19 10/23/20 23 10/23/2023 LIPID PANEL [...] > or = 190 mg/dL Not Available [facility] (Lab Registration) [address] [place], [address], 10/23/2023 12:08:19 10/23/20 23 10/23/2023 LIPID PANEL chol/HDL ratio 3 ratio -5 Not Available [facility] (Lab Registration) [address] [place], [address], 10/23/2023 12:08:19 10/23/20 23 10/23/2023 LIPID PANEL note Unles s other bowles noted testi ng perfo rmed at: [facility] [address] [place] [address] [phone] Wesley anaya MD CLIA: [id number] Not Available [facility] (Lab Registration) [address] [place], [address], 10/23/2023 12:08:19 10/23/20 23 10/23/2023 HEMOG LOBIN A1C glycosylated hemoglobin A1C 9.8 % 4.5-6. 2 high Not Available [facility] (Lab Registration) [address] [place], [address], 10/23/2023 13:29:42 10/23/20 23 10/23/2023 HEMOG LOBIN A1C estimated average glucose 235 mg/dL 82-131 high Not Available [facility] (Lab Registration) [address] [place], [address], 10/23/2023 13:29:42 10/23/20 23 10/23/2023 HEMOG LOBIN A1C note Unles s other bowles noted testi ng perfo rmed at: [facility] [address] [place] [address] [phone] Wesley anaya MD CLIA: [id number] Not Available [facility] (Lab Registration) [address] [place], [address], 10/23/2023 13:29:42 01/29/20 24 01/29/2024 CBC AUTO W DIFF WBC 7.5 10 4.5-11 .5 Not Available [facility] (Lab Registration) [address] [place], [address], 01/29/2024 13:21:00 01/29/20 24 01/29/2024 CBC AUTO W DIFF RBC 4.49 10 4.25-5 .57 Not Available [facility] (Lab Registration) [address] [place], [address], 01/29/2024 13:21:00 01/29/20 24 01/29/2024 CBC AUTO W DIFF HGB 13.4 g/dL 13.5-1 7.2 low Not Available [facility] (Lab Registration) [address] [place], [address], 01/29/2024 13:21:00 01/29/20 24 01/29/2024 CBC AUTO W DIFF HCT 41.4 % 42.0-5 2.0 low Not Available [facility] (Lab Registration) [address] [place], [address], 01/29/2024 13:21:00 01/29/20 24 01/29/2024 CBC AUTO W DIFF MCV 92.2 fL 80-95 Not Available [facility] (Lab Registration) [address] [place], [address], 01/29/2024 13:21:00 01/29/20 24 01/29/2024 CBC AUTO W DIFF MCH 29.8 pg 27.0-3 4.0 Not Available [facility] (Lab Registration) [address] [place], [address], 01/29/2024 13:21:00 01/29/20 24 01/29/2024 CBC AUTO W DIFF MCHC 32.4 g/dL 32.0-3 6.0 Not Available [facility] (Lab Registration) [address] [place], [address], 01/29/2024 13:21:00 01/29/20 24 01/29/2024 CBC AUTO W DIFF platelet count 263 10 150-45 0 Not Available [facility] (Lab Registration) [address] [place], [address], 01/29/2024 13:21:00 01/29/20 24 01/29/2024 CBC AUTO W DIFF RDW 13.2 % 12.3-1 5.1 Not Available [facility] (Lab Registration) [address] [place], [address], 01/29/2024 13:21:00 01/29/20 24 01/29/2024 CBC AUTO W DIFF MPV 10.7 fL 7.4-10 .4 high Not Available [facility] (Lab Registration) [address] [place], [address], 01/29/2024 13:21:00 01/29/20 24 01/29/2024 CBC AUTO W DIFF granulocyte% 68.6 % 40-75 Not Available [facility] (Lab Registration) [address] [place], [address], 01/29/2024 13:21:00 01/29/20 24 01/29/2024 CBC AUTO W DIFF lymphocyte% 22.0 % 15-57 Not Available [facility] (Lab Registration) [address] [place], [address], 01/29/2024 13:21:00 01/29/20 24 01/29/2024 CBC AUTO W DIFF monocyte% 5.8 % 4.0-12 .0 Not Available [facility] (Lab Registration) [address] [place], [address], 01/29/2024 13:21:00 01/29/20 24 01/29/2024 CBC AUTO W DIFF eosinophil% 2.5 % 0.0-4. 0 Not Available [facility] (Lab Registration) [address] [place], [address], 01/29/2024 13:21:00 01/29/20 24 01/29/2024 CBC AUTO W DIFF basophil% 0.8 % 0.0-1. 0 Not Available [facility] (Lab Registration) [address] [place], [address], 01/29/2024 13:21:00 01/29/20 24 01/29/2024 CBC AUTO W DIFF immature granulocytes % 0.3 % 0.0-0. 8 Not Available [facility] (Lab Registration) [address] [place], [address], 01/29/2024 13:21:00 01/29/20 24 01/29/2024 CBC AUTO W DIFF granulocyte# 5.12 10 Not Available [facility] (Lab Registration) [address] [place], [address], 01/29/2024 13:21:00 01/29/20 24 01/29/2024 CBC AUTO W DIFF lymphocyte# 1.64 10 Not Available [facility] (Lab Registration) [address] [place], [address], 01/29/2024 13:21:00 01/29/20 24 01/29/2024 CBC AUTO W DIFF monocyte# 0.43 10 Not Available [facility] (Lab Registration) [address] [place], [address], 01/29/2024 13:21:00 01/29/20 24 01/29/2024 CBC AUTO W DIFF eosinophil# 0.19 10 Not Available [facility] (Lab Registration) [address] [place], [address], 01/29/2024 13:21:00 01/29/20 24 01/29/2024 CBC AUTO W DIFF basophil# 0.06 10 Not Available [facility] (Lab Registration) [address] [place], [address], 01/29/2024 13:21:00 01/29/20 24 01/29/2024 CBC AUTO W DIFF immature granulocytes # 0.02 10 Not Available [facility] (Lab Registration) [address] [place], [address], 01/29/2024 13:21:00 01/29/20 24 01/29/2024 CBC AUTO W DIFF manual differential NO Not Available [facility] (Lab Registration) [address] [place], [address], 01/29/2024 13:21:00 01/29/20 24 01/29/2024 CBC AUTO W DIFF note Unles s other bowles noted testi ng perfo rmed at: [facility] [address] [place] [address] [phone] Wesley anaya MD CLIA: [id number] Not Available [facility] (Lab Registration) [address] [place], [address], 01/29/2024 13:21:00 01/29/20 24 01/29/2024 HEMOG LOBIN A1C glycosylated hemoglobin A1C 8.3 % 4.5-6. 2 high Not Available [facility] (Lab Registration) [address] [place], [address], 01/29/2024 14:17:27 01/29/20 24 01/29/2024 HEMOG LOBIN A1C estimated average glucose 192 mg/dL 82-131 high Not Available [facility] (Lab Registration) [address], [place], [address], 01/29/2024 14:17:27 01/29/20 24 01/29/2024 HEMOG LOBIN A1C note Brian anaya other bowles noted testi ng perfo rmed at: [facility] [address] [place] [address] [phone] Wesley anaya MD CLIA: [id number] Not Available [facility] (Lab Registration) [address], [place], [address], 01/29/2024 14:17:27 01/29/20 24 01/29/2024 THYRO ID STIMU LATIN G HORMO NE thyroid stimulating hormone 1.60 mIU/m L 0.34-4 .80 Not Available [facility] (Lab Registration) [address] [place], [address], 01/29/2024 14:18:33 01/29/20 24 01/29/2024 THYRO ID STIMU LATIN G HORMO NE note Brian chicas bowles noted testi ng perfo rmed at: [facility] [address] [place] [address] [phone] Wesley anaya MD CLIA: [id number] Not Available [facility] (Lab Registration) [address], [place], [address], 01/29/2024 14:18:33 01/29/20 24 01/29/2024 COMP METAB OLIC PANEL sodium 138 mmol/ L 136-14 5 Not Available [facility] (Lab Registration) [address], [place], [address], 01/29/2024 14:18:35 01/29/20 24 01/29/2024 COMP METAB OLIC PANEL potassium 5.3 mmol/ L 3.5-5. 1 high Not Available [facility] (Lab Registration) [address] [place], [address], 01/29/2024 14:18:35 01/29/20 24 01/29/2024 COMP METAB OLIC PANEL chloride 104 mmol/ L 98-107 Not Available [facility] (Lab Registration) [address] [place], [address], 01/29/2024 14:18:35 01/29/20 24 01/29/2024 COMP METAB OLIC PANEL carbon dioxide 21 mmol/ L 21-32 Not Available [facility] (Lab Registration) [address] [place], [address], 01/29/2024 14:18:35 01/29/20 24 01/29/2024 COMP METAB OLIC PANEL anion gap 13.0 Not Available [facility] (Lab Registration) [address] [place], [address], 01/29/2024 14:18:35 01/29/20 24 01/29/2024 COMP METAB OLIC PANEL glucose 123 mg/dL 70-110 high Not Available [facility] (Lab Registration) [address] [place], [address], 01/29/2024 14:18:35 01/29/20 24 01/29/2024 COMP METAB OLIC PANEL blood urea nitrogen 45 mg/dL 7-18 high Not Available [facility] (Lab Registration) [address] [place], [address], 01/29/2024 14:18:35 01/29/20 24 01/29/2024 COMP METAB OLIC PANEL creatinine 2.0 mg/dL 0.8-1. 3 high Not Available [facility] (Lab Registration) [address] [place], [address], 01/29/2024 14:18:35 01/29/20 24 01/29/2024 COMP METAB OLIC PANEL BUN/creatini ne ratio 22.5 ratio 9-21 high Not Available [facility] (Lab Registration) [address], [place], [address], 01/29/2024 14:18:35 01/29/20 24 01/29/2024 COMP METAB OLIC PANEL estimated glom filtration rate 35 mL/mi n >60- low Not Available [facility] (Lab Registration) [address] [place], [address], 01/29/2024 14:18:35 01/29/20 24 01/29/2024 COMP METAB OLIC PANEL total protein 6.8 g/dL 6.4-8. 2 Not Available [facility] (Lab Registration) [address] [place], [address], 01/29/2024 14:18:35 01/29/20 24 01/29/2024 COMP METAB OLIC PANEL albumin 3.8 g/dL 3.4-5. 0 Not Available [facility] (Lab Registration) [address] [place], [address], 01/29/2024 14:18:35 01/29/20 24 01/29/2024 COMP METAB OLIC PANEL calcium 9.9 mg/dL 8.5-10 .1 Not Available [facility] (Lab Registration) [address] [place], [address], 01/29/2024 14:18:35 01/29/20 24 01/29/2024 COMP METAB OLIC PANEL corrected calcium 10.1 mg/dL 8.5-10 .1 Not Available [facility] (Lab Registration) [address] [place], [address], 01/29/2024 14:18:35 01/29/20 24 01/29/2024 COMP METAB OLIC PANEL bilirubin total 0.7 mg/dL 0.4-1. 5 Not Available [facility] (Lab Registration) [address] [place], [address], 01/29/2024 14:18:35 01/29/20 24 01/29/2024 COMP METAB OLIC PANEL AST (SGOT) 27 U/L 15-37 Not Available [facility] (Lab Registration) [address], [place], [address], 01/29/2024 14:18:35 01/29/20 24 01/29/2024 COMP METAB OLIC PANEL ALT (SGPT) 43 U/L 12-78 Not Available [facility] (Lab Registration) [address] [place], [address], 01/29/2024 14:18:35 01/29/20 24 01/29/2024 COMP METAB OLIC PANEL alk phosphatase 82 U/L Not Available [facility] (Lab Registration) [address] [place], [address], 01/29/2024 14:18:35 01/29/20 24 01/29/2024 COMP METAB OLIC PANEL note Unles s other bowles noted testi ng perfo rmed at: [facility] [address] [facility] [place] [address] [phone] Wesley anaya MD CLIA: [id number] Not Available [facility] (Lab Registration) [address] [place], [address], 01/29/2024 14:18:35 01/29/20 24 01/29/2024 LIPID PANEL triglyceride 46 mg/dL 20-200 [facility] [employer] (NCE[employer] ) has set the follo wing guide lines for Fasti ng Trigl yceri selvin: ADAMARIS L: <150 mg/dL BORDE RLINE HIGH: 150 - 199 mg/dL HIGH: 200 - 499 mg/dL VERY HIGH: > or =500 mg/dL Not Available [facility] (Lab Registration) [address] [place], [address], 01/29/2024 14:18:37 01/29/20 24 01/29/2024 LIPID PANEL cholesterol 207 mg/dL 0-200 high The Natio nal Susi st[employer] l [employer] t[employer]gr am ([facility] ) has set the follo wing guide lines for Fasti ng Susi stero l: SELAM ABLE: <200 mg/dL BORDE RLINE HIGH: 200 - 239 mg/dL HIGH: > or =240 mg/dL Not Available [facility] (Lab Registration) [address], [place], [address], 01/29/2024 14:18:37 01/29/20 24 01/29/2024 LIPID PANEL HDL cholesterol 81 mg/dL 60- The Natio nal Susi st[employer] l [employer]ca t[employer]gr am ([facility] ) has set the follo wing guide lines for Fasti ng HDL Susi stero l: LOW HDL: <40 mg/dL ADAMARIS L: 40 - 60 mg/dL SELAM ABLE: >60 mg/dL Not Available [facility] (Lab Registration) [address], [place], [address], 01/29/2024 14:18:37 01/29/20 24 01/29/2024 LIPID PANEL LDL calculated 117 mg/dL 100- The Natio nal Susi st[employer] l [employer]ca t[employer] Progr am ([facility] ) has set the follo wing guide lines for Fasti ng LDL Susi stero l: OPTIM AL: < 100 mg/dL LOW RISK: 100 - 129 mg/dL BORDE RLINE HIGH: 130 - 159 mg/dL HIGH: 160 - 189 mg/dL VERY HIGH: > or = 190 mg/dL Not Available [facility] (Lab Registration) [address], [place], [address], 01/29/2024 14:18:37 01/29/20 24 01/29/2024 LIPID PANEL chol/HDL ratio 3 ratio -5 Not Available [facility] (Lab Registration) [address] [place], [address], 01/29/2024 14:18:37 01/29/20 24 01/29/2024 LIPID PANEL note Unles s other bowles noted testi ng perfo rmed at: [facility] [address] [place] [address] [phone] Wesley anaya MD CLIA: [id number] Not Available [facility] (Lab Registration) [address] [place], [address], 01/29/2024 14:18:37 03/25/20 24 03/25/2024 HEMOG LOBIN A1C glycosylated hemoglobin A1C 7.6 % 4.5-6. 2 high Not Available [facility] (Lab Registration) [address] [place], [address], 03/25/2024 13:36:12 03/25/20 24 03/25/2024 HEMOG LOBIN A1C estimated average glucose 171 mg/dL 82-131 high Not Available [facility] (Lab Registration) [address] [place], [address], 03/25/2024 13:36:12 03/25/20 24 03/25/2024 HEMOG LOBIN A1C note Unles s other bowles noted testi ng perfo rmed at: [facility] [address] [place] [address] [phone] Wesley anaya MD CLIA: [id number] Not Available [facility] (Lab Registration) [address] [place], [address], 03/25/2024 13:36:12 03/25/20 24 03/25/2024 CBC AUTO W DIFF WBC 5.4 10 4.5-11 .5 Not Available [facility] (Lab Registration) [address] [place], [address], 03/25/2024 13:38:29 03/25/20 24 03/25/2024 CBC AUTO W DIFF RBC 4.32 10 4.25-5 .57 Not Available [facility] (Lab Registration) [address] [place], [address], 03/25/2024 13:38:29 03/25/20 24 03/25/2024 CBC AUTO W DIFF HGB 13.1 g/dL 13.5-1 7.2 low Not Available [facility] (Lab Registration) [address] [place], [address], 03/25/2024 13:38:29 03/25/20 24 03/25/2024 CBC AUTO W DIFF HCT 40.0 % 42.0-5 2.0 low Not Available [facility] (Lab Registration) [address] [place], [address], 03/25/2024 13:38:29 03/25/20 24 03/25/2024 CBC AUTO W DIFF MCV 92.6 fL 80-95 Not Available [facility] (Lab Registration) [address] [place], [address], 03/25/2024 13:38:29 03/25/20 24 03/25/2024 CBC AUTO W DIFF MCH 30.3 pg 27.0-3 4.0 Not Available [facility] (Lab Registration) [address] [place], [address], 03/25/2024 13:38:29 03/25/20 24 03/25/2024 CBC AUTO W DIFF MCHC 32.8 g/dL 32.0-3 6.0 Not Available [facility] (Lab Registration) [address] [place], [address], 03/25/2024 13:38:29 03/25/20 24 03/25/2024 CBC AUTO W DIFF platelet count 262 10 150-45 0 Not Available [facility] (Lab Registration) [address] [place], [address], 03/25/2024 13:38:29 03/25/20 24 03/25/2024 CBC AUTO W DIFF RDW 13.5 % 12.3-1 5.1 Not Available [facility] (Lab Registration) [address] [place], [address], 03/25/2024 13:38:29 03/25/20 24 03/25/2024 CBC AUTO W DIFF MPV 10.7 fL 7.4-10 .4 high Not Available [facility] (Lab Registration) [address] [place], [address], 03/25/2024 13:38:29 03/25/20 24 03/25/2024 CBC AUTO W DIFF granulocyte% 59.6 % 40-75 Not Available [facility] (Lab Registration) [address] [place], [address], 03/25/2024 13:38:29 03/25/20 24 03/25/2024 CBC AUTO W DIFF lymphocyte% 26.8 % 15-57 Not Available [facility] (Lab Registration) [address] [place], [address], 03/25/2024 13:38:29 03/25/20 24 03/25/2024 CBC AUTO W DIFF monocyte% 7.6 % 4.0-12 .0 Not Available [facility] (Lab Registration) [address] [place], [address], 03/25/2024 13:38:29 03/25/20 24 03/25/2024 CBC AUTO W DIFF eosinophil% 5.0 % 0.0-4. 0 high Not Available [facility] (Lab Registration) [address] [place], [address], 03/25/2024 13:38:29 03/25/20 24 03/25/2024 CBC AUTO W DIFF basophil% 0.6 % 0.0-1. 0 Not Available [facility] (Lab Registration) [address] [place], [address], 03/25/2024 13:38:29 03/25/20 24 03/25/2024 CBC AUTO W DIFF immature granulocytes % 0.4 % 0.0-0. 8 Not Available [facility] (Lab Registration) [address] [place], [address], 03/25/2024 13:38:29 03/25/20 24 03/25/2024 CBC AUTO W DIFF granulocyte# 3.23 10 Not Available [facility] (Lab Registration) [address] [place], [address], 03/25/2024 13:38:29 03/25/20 24 03/25/2024 CBC AUTO W DIFF lymphocyte# 1.45 10 Not Available [facility] (Lab Registration) [address] [place], [address], 03/25/2024 13:38:29 03/25/20 24 03/25/2024 CBC AUTO W DIFF monocyte# 0.41 10 Not Available [facility] (Lab Registration) [address] [place], [address], 03/25/2024 13:38:29 03/25/20 24 03/25/2024 CBC AUTO W DIFF eosinophil# 0.27 10 Not Available [facility] (Lab Registration) [address] [place], [address], 03/25/2024 13:38:29 03/25/20 24 03/25/2024 CBC AUTO W DIFF basophil# 0.03 10 Not Available [facility] (Lab Registration) [address] [place], [address], 03/25/2024 13:38:29 03/25/20 24 03/25/2024 CBC AUTO W DIFF immature granulocytes # 0.02 10 Not Available [facility] (Lab Registration) [address] [place], [address], 03/25/2024 13:38:29 03/25/20 24 03/25/2024 CBC AUTO W DIFF manual differential NO Not Available [facility] (Lab Registration) [address] [place], [address], 03/25/2024 13:38:29 03/25/20 24 03/25/2024 CBC AUTO W DIFF note Unles s other bowles noted testi ng perfo rmed at: [facility] [address] [place] [address] [phone] Wesley anaya MD CLIA: [id number] Not Available [facility] (Lab Registration) [address] [place], [address], 03/25/2024 13:38:29 03/25/20 24 03/25/2024 COMP METAB OLIC PANEL sodium 142 mmol/ L 136-14 5 Not Available [facility] (Lab Registration) [address] [place], [address], 03/25/2024 13:46:33 03/25/20 24 03/25/2024 COMP METAB OLIC PANEL potassium 5.2 mmol/ L 3.5-5. 1 high Not Available [facility] (Lab Registration) [address] [place], [address], 03/25/2024 13:46:33 03/25/20 24 03/25/2024 COMP METAB OLIC PANEL chloride 109 mmol/ L 98-107 high Not Available [facility] (Lab Registration) [address] [place], [address], 03/25/2024 13:46:33 03/25/20 24 03/25/2024 COMP METAB OLIC PANEL carbon dioxide 22 mmol/ L 21-32 Not Available [facility] (Lab Registration) [address] [place], [address], 03/25/2024 13:46:33 03/25/20 24 03/25/2024 COMP METAB OLIC PANEL anion gap 11.0 Not Available [facility] (Lab Registration) [address] [place], [address], 03/25/2024 13:46:33 03/25/20 24 03/25/2024 COMP METAB OLIC PANEL glucose 106 mg/dL 70-110 Not Available [facility] (Lab Registration) [address] [place], [address], 03/25/2024 13:46:33 03/25/20 24 03/25/2024 COMP METAB OLIC PANEL blood urea nitrogen 44 mg/dL 7-18 high Not Available [facility] (Lab Registration) [address] [place], [address], 03/25/2024 13:46:33 03/25/20 24 03/25/2024 COMP METAB OLIC PANEL creatinine 2.1 mg/dL 0.8-1. 3 high Not Available [facility] (Lab Registration) [address] [place], [address], 03/25/2024 13:46:33 03/25/20 24 03/25/2024 COMP METAB OLIC PANEL BUN/creatini ne ratio 21.0 ratio 9-21 Not Available [facility] (Lab Registration) [address] [place], [address], 03/25/2024 13:46:33 03/25/20 24 03/25/2024 COMP METAB OLIC PANEL estimated glom filtration rate 33 mL/mi n >60- low Not Available [facility] (Lab Registration) [address] [place], [address], 03/25/2024 13:46:33 03/25/20 24 03/25/2024 COMP METAB OLIC PANEL total protein 6.8 g/dL 6.4-8. 2 Not Available [facility] (Lab Registration) [address] [place], [address], 03/25/2024 13:46:33 03/25/20 24 03/25/2024 COMP METAB OLIC PANEL albumin 3.8 g/dL 3.4-5. 0 Not Available [facility] (Lab Registration) [address] [place], [address], 03/25/2024 13:46:33 03/25/20 24 03/25/2024 COMP METAB OLIC PANEL calcium 9.6 mg/dL 8.5-10 .1 Not Available [facility] (Lab Registration) [address], [place], [address], 03/25/2024 13:46:33 03/25/20 24 03/25/2024 COMP METAB OLIC PANEL corrected calcium 9.8 mg/dL 8.5-10 .1 Not Available [facility] (Lab Registration) [address] [place], [address], 03/25/2024 13:46:33 03/25/20 24 03/25/2024 COMP METAB OLIC PANEL bilirubin total 0.6 mg/dL 0.4-1. 5 Not Available [facility] (Lab Registration) [address] [place], [address], 03/25/2024 13:46:33 03/25/20 24 03/25/2024 COMP METAB OLIC PANEL AST (SGOT) 27 U/L 15-37 Not Available [facility] (Lab Registration) [address], [place], [address], 03/25/2024 13:46:33 03/25/20 24 03/25/2024 COMP METAB OLIC PANEL ALT (SGPT) 37 U/L 12-78 Not Available [facility] (Lab Registration) [address] [place], [address], 03/25/2024 13:46:33 03/25/20 24 03/25/2024 COMP METAB OLIC PANEL alk phosphatase 77 U/L Not Available [facility] (Lab Registration) [address] [place], [address], 03/25/2024 13:46:33 03/25/20 24 03/25/2024 COMP METAB OLIC PANEL note Unles s other bowles noted testi ng perfo rmed at: [facility] [address] [place] [address] [phone] Wesley anaya MD CLIA: [id number] Not Available [facility] (Lab Registration) [address] [place], [address], 03/25/2024 13:46:33 03/25/20 24 03/25/2024 LIPID PANEL triglyceride 54 mg/dL 20-200 The [employer]io n[employer] t[employer] ([facility] ) has set the follo wing guide lines for Fasti ng Trigl yceri selvin: ADAMARIS L: <150 mg/dL BORDE RLINE HIGH: 150 - 199 mg/dL HIGH: 200 - 499 mg/dL VERY HIGH: > or =500 mg/dL Not Available [facility] (Lab Registration) [address] [place], [address], 03/25/2024 13:47:38 03/25/20 24 03/25/2024 LIPID PANEL cholesterol 204 mg/dL 0-200 high The [employer]io n[employer] t[employer] ([facility] ) has set the follo wing guide lines for Fasti ng Susi stero l: SELAM ABLE: <200 mg/dL BORDE RLINE HIGH: 200 - 239 mg/dL HIGH: > or =240 mg/dL Not Available [facility] (Lab Registration) [address] [place], [address], 03/25/2024 13:47:38 03/25/20 24 03/25/2024 LIPID PANEL HDL cholesterol 64 mg/dL 60- The Natio nal [employer]i st[employer] l [employer]ca t[employer]gr am ([facility] ) has set the follo wing guide lines for Fasti ng HDL Susi stero l: LOW HDL: <40 mg/dL ADAMARIS L: 40 - 60 mg/dL SELAM ABLE: >60 mg/dL Not Available [facility] (Lab Registration) [address] [place], [address], 03/25/2024 13:47:38 03/25/20 24 03/25/2024 LIPID PANEL [...] > or = 190 mg/dL Not Available [facility] (Lab Registration) [address] , [place], [address], 03/25/2024 13:47:38 03/25/20 24 03/25/2024 LIPID PANEL chol/HDL ratio 3 ratio -5 Not Available [facility] (Lab Registration) [address] , [place], [address], 03/25/2024 13:47:38 03/25/20 24 03/25/2024 LIPID PANEL note Unles s other bowles noted testi ng perfo rmed at: [facility] [address] [place] [address] [phone] Wesley anaya MD CLIA: [id number] Not Available [facility] (Lab Registration) [address] , [place], [address], 03/25/2024 13:47:38 Result Notes None recorded. Problems Name Problem SNOMED Code Status Onset Date Resolution Date Notes Provider Name and Address Organization Details Recorded Time Essential hypertension 80723446 Active 2021 Not Available [facility] 4 05:15:12 Gastroesophag eal reflux disease 546924209 Active 2021 Not Available [facility] 4 05:15:12 Benign prostatic hyperplasia 404981015 Active 2021 Not Available [facility] 4 05:15:12 Type 2 diabetes mellitus 72289757 Active 2021 Not Available [facility] 4 05:15:12 Obstructive sleep apnea syndrome 79173818 Active 2021 Not Available [facility] 4 05:15:12 Hyperlipidemi a 44381802 Active 2021 Not Available [facility] 4 05:15:12 Chronic renal failure 32464905 Active 2021 Not Available [facility] 4 05:15:12 Gout 07083659 Active 2021 Not Available [facility] 4 05:15:12 Nocturnal muscle spasm 46123463 Active 2022 Not Available [facility] 4 05:15:12 Problem Notes None recorded. Procedures Surgical History Date Name Laterality Status Provider Name and Address Organization Details Recorded Time 06/19/20 24 Colonoscopy completed Samantha Temple [place] - [facility] [place] 07/05/2024 10:35:11 04/23/20 19 circumcision completed Mitzysharri Yepezdini [place] - [facility] [place] 08/24/2022 09:02:40 03/20/20 17 extracorporeal shockwave lithotripsy of calculus of kidney completed [facility] [place] - [facility] [place] 08/24/2022 09:02:24 11/20/19 11 insertion of stent into ureter completed [facility] Pardini [place] - [facility] [place] 08/24/2022 09:02:04 11/20/19 04 repair of musculotendinous cuff of shoulder completed [facility] [place] [facility] [place] 08/24/2022 09:01:39 11/20/19 04 [facility]otend[facility] [place] [facility] [place] 08/24/2022 09:01:43 appendectomy completed [facility] Pard[place] - [facility] [place] 08/24/2022 09:01:17 Imaging Results None recorded. Procedure Notes None recorded. Medical Equipment None Reported. Allergies Allergen ID Allergen Name Allergen Category Reaction Reaction Severity Criticality Documentation Date Start Date Code Code System Note Provider Name and Address Organization Details Recorded Time 49178 amoxicill in medicatio n diarrhea mild Not available 08/24/2022 723 RxNorm Not Available [facility] 4 05:15:12 Medications Name Sig Start Date [...] Updated DateTime 4 175.26 cm 30.8 kg/m2 66870.6 5 g 97.9 [degF] 97 % 97 % 86 /min 16 /min 142/83 mm[Hg] Mitzy Yepezigor [facility] [place] [facility] [place] 4 11:54:16 Date Recorded Body height Body mass index (BMI) Body weight Body temperature Oxygen saturation Oxygen saturation in Arterial blood by Pulse oximetry Heart rate Respiratory rate Systolic And Diastolic Provider Name and Address Organization Details Last Updated DateTime 4 175.26 cm 30.6 kg/m2 22858.3 4 g 97.7 [degF] 99 % 99 % 75 /min 16 /min 145/75 mm[Hg] Mitzy COWAN [facility] [place] 4 11:02:40 Date Recorded Body height Body mass index (BMI) Body weight Body temperature Oxygen saturation Oxygen saturation in Arterial blood by Pulse oximetry Heart rate Respiratory rate Systolic And Diastolic Provider Name and Address Organization Details Last Updated DateTime 4 175.26 cm 30.5 kg/m2 10887.4 7 g 97.3 [degF] 98 % 98 % 62 /min 16 /min 139/80 mm[Hg] Mitzy COWAN [facility] [place] 4 09:38:27 Date Recorded Body height Body mass index (BMI) Body weight Body temperature Oxygen saturation Oxygen saturation in Arterial blood by Pulse oximetry Heart rate Respiratory rate Systolic And Diastolic Provider Name and Address Organization Details Last Updated DateTime 4 175.26 cm 31.2 kg/m2 91093.9 9 g 97.2 [degF] 97 % 97 % 68 /min 16 /min 139/84 mm[Hg] [facility] [place] 4 10:45:09 Date Recorded Body height Body mass index (BMI) Body weight Body temperature Oxygen saturation Oxygen saturation in Arterial blood by Pulse oximetry Heart rate Respiratory rate Systolic And Diastolic Provider Name and Address Organization Details Last Updated DateTime 3 175.26 cm 30.1 kg/m2 34073.8 4 g 97.5 [degF] 100 % 100 % 80 /min 16 /min 156/81 mm[Hg] Mitzy [facility] [place] 3 09:45:50 Social History Question Answer Notes LastModified by Organizat ion Details LastModified Time Tobacco Smoking Status Never Smoker MEHUL Zavala [facility] [place] 08/24/2022 09:00:55 What Was The Date Of Your Most Recent Tobacco Screening? 01/18/2023 [email or web address] Information not available 01/18/2023 Has Tobacco Cessation [...] History Condition Response Diabetes Y Gout Y Hypertension Y Kidney Stones Y High Cholesterol Y Immunizations Vaccine Type Date Status Note Provider Nam e and Address Organization Details Recorded Time Influenza, adjuvanted, trivalent, PF 7 completed Not Available [facility] 12/14/2023 05:15:12 Influenza, MDCK, quadrivalent, PF 8 completed Not Available [facility] 12/14/2023 05:15:12 Influenza, high-dose, quadrivalent, PF 0 completed Not Available [facility] 12/14/2023 05:15:12 Influenza, high-dose, quadrivalent, PF 1 completed Not Available [facility] 12/14/2023 05:15:12 Influenza, high-dose, quadrivalent, PF 2 completed Not Available [facility] 12/14/2023 05:15:12 COVID-19, mRNA, LNP-S, PF, 100 mcg/0.5mL dose or 50 mcg/0.25mL dose 1 completed Not Available [facility] 12/14/2023 05:15:12 COVID-19, mRNA, LNP-S, PF, 100 mcg/0.5mL dose or 50 mcg/0.25mL dose 1 completed Not Available [facility] 12/14/2023 05:15:12 Pneumococcal conjugate PCV 13 8 completed Not Available [facility] 12/14/2023 05:15:12 Influenza, [place] 3 completed Not Available [facility] 12/14/2023 05:15:12 Influenza, high-dose, quadrivalent, PF 3 completed Mitzy Mariee [place], [place] - [facility] [place] 01/16/2024 11:54:33 Past Encounters Encounter ID Performer Location Encounter Start Date Encounter Closed Date Diagnosis/Indication Diagnosis SNOMED-CT Code Diagnosis ICD10 Code Diagnosis IMO Codes Diagnosis Note [id number] MD joel [address] [address] 08/24/2022 08:39:33 08/24/2022 09:20:13 Injury of finger 42432882 S69.91XA partially avulsed nail has been removed. Patient tolerated procedure well. We have dressed finger with antibiotic ointment. [id number] MD joel Mark[address] [address] 09/30/2022 14:35:56 09/30/2022 15:25:25 Benign prostatic hyperplasia 954449584 N40.0 stable Essential hypertension 89450367 I10 patient's blood pressure is elevated. It is questionab le with a took his medication today. I have told him to monitor his blood pressure at home and let me know what his blood pressure log looks like. We may need to adjust his medication s. Gastroesop hageal reflux disease 333285253 K21.9 stable Hyperlipidemia 19394178 E78.5 Stable [id number] MD william Mark[address] [address] 12/23/2022 07:48:01 12/23/2022 08:44:12 Essential hypertension 52429083 I10 patient's blood pressure is elevated. It is questionab le with a took his medication today. I have told him to monitor his blood pressure at home and let me know what his blood pressure log looks like. We may need to adjust his medication s. Type 2 ekaterina betes mellitus 07548580 E11.9 will stop pioglitazo ne. Start patient on Jardiance. Hyperlipidemia 84179222 E78.5 Stable will check lab work today. Gastroesop hageal reflux disease 206762771 K21.9 stable [id number] MD william [address] [address] 01/18/2023 10:46:45 01/18/2023 10:59:30 Type 2 diabetes mellitus 17823151 E11.9 Patient states he is unable to afford his Jardiance. He states he has been taking metformin. I will try to get him approved for Ozempic. Will send in a prescripti on today. Osteoarthritis 770996658 M19.90 patient has osteoarthr itis in both knees. He has an appointmen t follow-up with his orthopedis t in the morning. He is to continue to take Tylenol as needed for pain. [id number] MD william Mark[address] [address] 03/29/2023 08:21:03 03/29/2023 08:48:03 Type 2 diabetes mellitus 17987614 E11.9 PATIENT TO CONTINUE TO TAKE HIS METFORMIN. Cramp in lower limb 4499 04373 R25.2 WILL SEND IN A PRESCRIPTI ON FOR CYCLOBENZA VAIBHAV TO TAKE NEEDED. PATIENT TO ALSO START TAKING HIS POTASSIUM. Benign pro static hyperplasia 949477539 N40.0 PATIENT STATES THAT HIS TAMSULOSIN WORKS WELL FOR HIM. WILL SEND IN A REFILL TODAY. [id number] Matthew Roberts MD [facility] [address] [place] [address] 07/12/2023 08:08:09 07/12/2023 08:47:10 Type 2 diabetes mellitus 39740070 E11.9 PATIENT TO CONTINUE TO TAKE HIS METFORMIN. - WE WILL ADD JARDIANCE TO REGIMEN Screening for malignant neoplasm of colon 367444516 Z12.11 Benign pro static hyperplasia 239987943 N40.0 PATIENT STATES THAT HIS TAMSULOSIN WORKS WELL FOR HIM. WILL SEND IN A REFILL TODAY. Chronic renal failure 90 166223 N18.9 patient to continue to follow-up with nephrology . Essential hypertension 57827283 I10 Blood pressure controlled . Hyperlipidemia 43109043 E78.5 Stable will check lab work today. Gastroesop hageal reflux disease 901283799 K21.9 stable Cramp in lower limb 4499 99557 R25.2 WILL SEND IN A PRESCRIPTI ON FOR CYCLOBENZA VAIBHAV TO TAKE NEEDED. PATIENT TO ALSO START TAKING HIS POTASSIUM. Gout 29782961 M10.9 will renew patient's allopurino l. [id number] Matthew Roberts MD [address] [place] [address] 10/23/2023 09:30:21 10/23/2023 10:11:14 Essential hypertension 22947946 I10 Blood pressure controlled . Gastroesop hageal reflux disease 031405664 K21.9 stable Hyperlipidemia 60503461 E78.5 Stable will check lab work today. Type 2 ekaterina betes mellitus 53753436 E11.9 patient states that he can not 4 Jardiance. He has also stopped his metformin secondary to diarrhea. Patient is currently not on any diabetic medication . 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 No anticoagul ation is required for this. Patient needs to follow-up with his orthopedis t. We attempted to call patient to discuss results of his ultrasound . No blood thinners required at this time.No reply. Mailbox is full. Will try again. [id number] Matthew Roberts MD [address] [place] [address] 01/29/2024 10:46:20 01/29/2024 11:36:47 Type 2 diabetes mellitus 40587652 E11.9 Will check patient's A1c today. Essential hypertension 52933029 I10 Blood pressure controlled . Hyperlipidemia 91185694 E78.5 Stable will check lab work today. Gout 83697333 M10.9 Gastroesop hageal reflux disease 405142872 K21.9 Benign pro static hyperplasia 488285023 N40.0 [id number] Matthew Roberts MD [address] [place] [address] 03/25/2024 09:27:23 03/25/2024 09:54:49 Type 2 diabetes mellitus 53657116 E11.9 Patient can not afford Ozempic so he has not taken Chronic renal failure 90 963557 N18.9 will check lab work today. Essential hypertension 93636878 I10 Blood pressure controlled . Hyperlipidemia 40520716 E78.5 Stable will check lab work today. Gout 63951702 M10.9 Patient takes allopurino l. Will refill his prescripti on. [id number] Matthew Roberts MD [facility] [address] [place] [id number] 07/09/2024 10:31:32 07/09/2024 10:49:39 Fracture at wrist and/or hand level [id number] S62.91XD continue to follow-up with orthopedis t. Gout [id number] M10.9 Patient takes allopurino l. Will refill his prescripti on. Essential hypertension [id number] I10 Blood pressure controlled . Gastroesop hageal reflux disease [id number] K21.9 Type 2 ekaterina betes mellitus [id number] E11.9 Benign pro static hyperplasia [id number] N40.0 Health Concerns Section Related Observation LastModified by Organization Detai ls LastModified Time None Recorded Concern Status LastModified by Organization Details LastModified Time None Recorded Advance Directives Directive None Recorded Payers Insurance Date Sequence Insurance Name Policy Number Policy Muhammad Covered Member ID Muhammad Member ID Guarantor Name 06/08/2024 2 [employer] (MEDICARE SUPPLEMENT) Addison Peguero [id number] Addison Peguero 10/25/2024 [place] [facility] Addison Peguero [id number] Addison Peguero 10/25/2024 1 [place] Addison Peguero [id number] Addison Peguero 10/25/2024 2 [employer] (MEDICARE SUPPLEMENT) Addison Peguero [id number] Addison Peguero 10/25/2024 [place] - [facility] (MEDICARE) Addison Peguero [id number] Addison Peguero 06/08/2024 1 [place] Addison Peguero [id number] Addison Aadmee 05/12/2020 2 [employer] (MEDICARE SUPPLEMENT) Addison Peguero [id number] Addison Peguero Notes Date Note Type Note Provider Name and Address Organization Details Recorded Time 10/23/2023 text/html PT PRESENTS FOR CHRONIC CARE MANAGEMENT, DENIES ANY NEW ISSUES. IS COMPLIANT WITH MEDICATIONS Matthew Roberts MD [address] [place] [address], [phone], [facility] & [place] 10/23/2023 10:28:30 01/16/2024 text/html ROS as noted [...] copy of his results. Matthew Roberts MD [address] [place] [address], [phone], [facility] - [facility] & [place] 01/16/2024 14:19:30 01/29/2024 text/html patient presents for routine chronic care management. He denies any new issues at this time. Matthew Roberts MD [address] [place] [address], [phone], [facility] - [facility] & [place] 01/29/2024 11:22:23 03/25/2024 text/html PT PRESENTS FOR CHRONIC CARE MANAGEMENT, DENIES ANY NEW ISSUES. IS COMPLIANT WITH MEDICATIONS Matthew Roberts MD [address] [place] [address], [phone], [facility] - [facility] & [place] 03/25/2024 09:55:51 07/09/2024 text/html ROS as noted in the HPI Patient presents today for routine follow-up. He states that he Needs refills on his medications. he also states that he broke his right wrist in April. Patient is under the care of He states that he fell Matthew Roberts MD [address] [place] [address], [phone], [facility] & [place] 07/09/2024 10:58:15
--- OUTSIDE RECORDS SUMMARY | 2025-08-20 07:51 | XMS_ITS | Encounter Summary ---
Author Organization [facility] Address [address] [place] [address] Care Team Providers Care Manufacturing Test Engineer Name Role Phone Samantha Vallecillo AISHA Primary Care Provider [phone] Reason for Referral * Cardiac (Routine) - Closed Specialty Diagnoses / Procedures Referred By Contnatasha t Referred To Contact Diagnoses Precordial chest pain Palpitations Procedures Holter Monitor - 72 Hour Up To 15 Days Melanie Scott MD [address] [place] [address] Phone: tel: fax: [facility] [place] [address] [place] [address] Phone: tel: fax: Referral ID Status Reason Start Date Expiration Date Visits Re quested Visits Authorized [id number] Closed 07/28/2025 10/27/2026 1 1 Encounter Details Date Type Department Care Team (Late st Contact Info) Description 07/28/2025 Telephone [facility] [address] [place] [address] Melanie Scott MD [address] [place] [address] Social History Tobacco Use Types Packs/Day [...] call that patient has been admitted to [facility] for chest pain. Troponins have [...] documented in this encounter Plan of Treatment Pending Results [...] Palpitations documented in this encounter Care Teams Manufacturing Test Engineer Relationship Specialty Start Date End Date Samantha Vallecillo APRN [address] [place] [address] PCP - General Family Medicine 06/19/25 documented as of this encounter
--- OUTSIDE RECORDS SUMMARY | 2025-08-20 07:51 | XMS_ITS | Encounter Summary ---
Author Organization [facility] Address [address] [place] [address] Care Team Providers Care Rope Silica Machine Operator Name Role Phone Samantha Vallecillo APRN Primary Care Provider [phone] Encounter Details Date Type Department Care Team [...] on filedocumented in this encounter Care Teams Rope Silica Machine Operator Relationship Specialty Start Date End Date Samantha Vallecillo APRN [address] [place] [address] PCP - General Family Medicine 06/19/25 documented as of this encounter
--- OUTSIDE RECORDS SUMMARY | 2025-08-20 07:52 | XMS_ITS | Clinical Summary ---
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
--- OUTSIDE RECORDS SUMMARY | 2025-08-20 07:52 | XMS_ITS | Encounter Summary ---
Author Organization [employer] ([place], [place], [place], [place]) Address [address] [place] [address] Care Team Providers Care Lime Kiln And Recausticizing Operator Name Role Phone Samantha Vallecillo CAUSTIC ROOM ATTENDANT Primary Care Provider [phone] Reason for Referral * Diagnostic X-Ray (Emergency) - New Request Specialty Diagnoses / Procedures Referred By Светлана t Referred To Contact Diagnoses Calculus of kidney Procedures X-ray abdomen KUB 1 view Derek Madrigal MD [address] [place] [address] [place] [address] Phone: tel: fax: Referral ID Status Reason Start Date Expiration Date V isits Requested Visits Authorized [id number] New Request 01/24/2025 01/24/2026 1 1 Encounter Details Date Type Department Care Team (Late st Contact Info) Description 01/24/2025 Outside Orders [facility] [place] Office [address] [place] [address] Derek Madrigal MD [address] [place] [address] [address] [place] [address] Calculus of kidney (Primary Dx) Social History Tobacco Use Types Packs/Day Years Used Date Smoking Tobacco: Never Assessed Sex and Gender Information Value Date Recorded Sex Assigned at Not on file 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
--- OUTSIDE RECORDS SUMMARY | 2025-08-20 07:52 | XMS_ITS | Encounter Summary ---
Author Organization [facility] Address [address] [place] [address] Care Team Providers Care Implementation Project Coordinator Name Role Phone Samantha aVllecillo APRN Primary Care Provider [phone] Reason for Visit * Reason Onset Date Comments [facility] - HEART MONITOR QUESTION 08/18/2025 Encounter Details Date Type Department Care Team (Late st Contact Info) Description 08/18/2025 Telephone [facility] [address] [place] [address] Melanie Scott MD [address] [place] [address] [facility] - HEART MONITOR QUESTION Social History Tobacco Use Types Packs/Day Years [...] encounter Miscellaneous Notes * Telephone Encounter - Rhiannon Camp MA - 08/18/2025 1:54 PM EDT Power, on verbal, notified. The monitor was returned to us by the post office on Monday. Monitorwas dropped off at UPS drop off. Power would like to cancel pt's appt on Monday since he is in the longterm and we probably will not have the monitor results by Monday. * Telephone Encounter - Rhiannon Charlton RegSched Rep - 08/18/2025 12:44 PM EDT Caller: Addison Peguero Relationship: Self Best call back number: [phone] What is the best time to reach you: ANY What was the call regarding: PATIENT'S DAUGHTER REQUESTING CALL TO CONFIRM THAT OFFICE RECEIVED CHIP FROM HEART MONITOR AND THAT IT DID, IN FACT, COLLECT THE DATA NEEDED FOR HIS APPOINTMENT ON 08.25.25. Is it okay if the provider responds through MyChart: PLEASE CALL documented in this encounter Plan of Treatment Not on file documented as of this encounter Visit Diagnoses Not on filedocumented in this encounter Care Teams Implementation Project Coordinator Relationship Specialty Start Date End Date Samantha Vallecillo APRN [address] [place] [address] PCP - General Family Medicine 06/19/25 documented as of this encounter
--- OUTSIDE RECORDS SUMMARY | 2025-08-20 07:52 | XMS_ITS | Data Portability ---
Author Organization MEHUL NORY Curran GLENDORA CLOSED Address [address] [address] [address] [place] [address] Care Team Providers Care External Grinder Tool Name Role Phone MAKEDA ROBERTSE Primary Care Provider CANELO LEWIS Primary Care Provider [phone] Assessment Encounter Date Assessment Date Assessment LastModified [...] prepped and draped in normal fashion. A #22-Malay cystoscopy sheath was introduced. The urethra was [...] and stent removal in the near future. [email or web address] Not available 02/06/2025 13:05:34 03/27/2025 03/27/2025 - [...] solifenacin, with dizziness as a side effect. Not available 05/06/2025 21:22:37 Plan of Treatment Reminders Order Date Submit Date Provider Last Modified By Organization Details Last Modified Time Details Appointments RECHECK 2024 01:30P Ken WELLS MD Not available Not available Not available Lab urinalysi s panel, auto 2024 025 [email or web address] 4 [facility], [address], [address], [place], [address], 05/05/2025 16:44:04 urinalysi s panel, auto 2024 025 [email or web address] 4 [facility], [address] , [address], [place], [address], 03/27/2025 14:13:13 urinalysi s panel, auto 2024 025 [email or web address] [facility], [address], [address], [place], [address], 03/06/2025 10:37:09 urinalysi s panel, auto 2024 025 [email or web address] 4 [facility], [address], [address], [place], [address], 02/09/2025 13:44:59 Referral None recorded. Procedures None recorded. Surgeries cystoscop y, with ureterosc opy, with lithotrip sy, with insertion of ureteral stent (SURG) 2024 [facility]25 [email or web address], [address] [facility], [address], [place], [address], 02/20/2025 16:26:09 Imaging None recorded. Medication Orders fesoterod ine ER 8 mg tablet,ex tended release 24 hr 2024 025 [facility], [place], [address], 05/05/2025 16:44:27 tamsulosi n 0.4 mg capsule 2024 025 [facility] [facility], [address] [place], [address], 03/27/2025 14:14:26 solifenac in 10 mg tablet 2024 025 [facility] [facility], [address] [place], [address], 05/05/2025 16:44:25 tamsulosi n 0.4 mg capsule 2024 025 [email or web address] 4 [facility], [address] [place], [address], 01/29/2025 13:17:40 Patient TargetsNo targets recorded. Patient Instructions Encounter Date Encounter Id Patient Instructions Last Modified By Organization Details Last Modified Time 01/28/2025 [id number] - Take tamsulosi n twice daily as prescribed. - Monitor symptoms, especially urinary changes. - Use pain medication as needed. - Follow up in one week or sooner if symptoms worsen. - Contact office if experiencing severe pain or new symptoms. [email or web address] Not available 01/28/2025 10:13:19 03/27/2025 [id number] - Stop taking Gemtesa. - Increase tamsulosin [...] night. [email or web address] Not available 03/27/2025 14:15:11 05/05/2025 [id number] - Continue takin g tamsulosin as prescribed. [...] auto Unknown Analyte Clean Catch Not Available [facility] [address], [address], 01/28/2025 14:01:50 01/29/20 25 01/28/2025 urina lysis panel , auto Unknown Analyte Yellow Not Available [facility] [address], [place], [address], 01/28/2025 14:01:50 01/29/20 25 01/28/2025 urina lysis panel , auto Unknown Analyte Clear Not Available [facility] [address], [place], [address], 01/28/2025 14:01:50 01/29/20 25 01/28/2025 urina lysis panel , auto Unknown Analyte 1.015 Not Available [facility] [address] [place] [address] [address], [place], [address], 01/28/2025 14:01:50 01/29/20 25 01/28/2025 urina lysis panel , auto Unknown Analyte 1.003 - 1.030 Not Available [facility] [address], [place], [address], 01/28/2025 14:01:50 01/29/20 25 01/28/2025 urina lysis panel , auto Unknown Analyte 5.0 Not Available [facility] [address], [place], [address], 01/28/2025 14:01:50 01/29/20 25 01/28/2025 urina lysis panel , auto Unknown Analyte 5.0 - 8.0 Not Available [facility] [address] [place] [address] [address], [place], [address], 01/28/2025 14:01:50 01/29/20 25 01/28/2025 urina lysis panel , auto Unknown Analyte Negati ve Not Available [facility] [address], [place], [address], 01/28/2025 14:01:50 01/29/20 25 01/28/2025 urina lysis panel , auto Unknown Analyte Negati ve Not Available [facility] [address], [place], [address], 01/28/2025 14:01:50 01/29/20 25 01/28/2025 urina lysis panel , auto Unknown Analyte Negati ve Not Available [facility] [address], [place], [address], 01/28/2025 14:01:50 01/29/20 25 01/28/2025 urina lysis panel , auto Unknown Analyte Negati ve Not Available [facility] [address], [place], [address], 01/28/2025 14:01:50 01/29/20 25 01/28/2025 urina lysis panel , auto Unknown Analyte Negati ve Not Available [facility] [address], [place], [address], 01/28/2025 14:01:50 01/29/20 25 01/28/2025 urina lysis panel , auto Unknown Analyte Negati ve Not Available [facility] [address], [place], [address], 01/28/2025 14:01:50 01/29/20 25 01/28/2025 urina lysis panel , auto Unknown Analyte Normal Not Available [facility] [address], [place], [address], 01/28/2025 14:01:50 01/29/20 25 01/28/2025 urina lysis panel , auto Unknown Analyte Normal Not Available [facility] [address], [place], [address], 01/28/2025 14:01:50 01/29/20 25 01/28/2025 urina lysis panel , auto Unknown Analyte Negati ve Not Available [facility] [address], [place], [address], 01/28/2025 14:01:50 01/29/20 25 01/28/2025 urina lysis panel , auto Unknown Analyte Negati ve Not Available [facility] [address], [place], [address], 01/28/2025 14:01:50 01/29/20 25 01/28/2025 urina lysis panel , auto Unknown Analyte Normal Not Available [facility] [address], [place], [address], 01/28/2025 14:01:50 01/29/20 25 01/28/2025 urina lysis panel , auto Unknown Analyte Normal Not Available [facility] [address], [place], [address], 01/28/2025 14:01:50 01/29/20 25 01/28/2025 urina lysis panel , auto Unknown Analyte Negati ve Not Available [facility] [address], [place], [address], 01/28/2025 14:01:50 01/29/20 25 01/28/2025 urina lysis panel , auto Unknown Analyte Negati ve Not Available [facility] [address] [facility] [address], [place], [address], 01/28/2025 14:01:50 01/29/20 25 01/28/2025 urina lysis panel , auto Unknown Analyte Negati ve Not Available [facility] [address] [facility] [address], [place], [address], 01/28/2025 14:01:50 01/29/20 25 01/28/2025 urina lysis panel , auto Unknown Analyte Negati ve Not Available [facility] [address] [facility] [address], [place], [address], 01/28/2025 14:01:50 02/01/20 25 01/31/2025 urina lysis panel , auto Unknown Analyte Clean Catch Not Available [facility] Surgery Schedule [address] [place], [address], 01/31/2025 13:46:54 02/01/20 25 01/31/2025 urina lysis panel , auto Unknown Analyte Yellow Not Available [facility] Surgery Schedule [address] [place], [address], 01/31/2025 13:46:54 02/01/20 25 01/31/2025 urina lysis panel , auto Unknown Analyte Clear Not Available [facility] Surgery Schedule [address] [place], [address], 01/31/2025 13:46:54 02/01/20 25 01/31/2025 urina lysis panel , auto Unknown Analyte 1.015 Not Available [facility] Surgery Schedule [address] [place], [address], 01/31/2025 13:46:54 02/01/20 25 01/31/2025 urina lysis panel , auto Unknown Analyte 1.003 - 1.030 Not Available [facility] Surgery Schedule [address] [place], [address], 01/31/2025 13:46:54 02/01/20 25 01/31/2025 urina lysis panel , auto Unknown Analyte 5.0 Not Available [facility] Surgery Schedule [address] [place], [address], 01/31/2025 13:46:54 02/01/20 25 01/31/2025 urina lysis panel , auto Unknown Analyte 5.0 - 8.0 Not Available [facility] Surgery Schedule [address] [place], [address], 01/31/2025 13:46:54 02/01/20 25 01/31/2025 urina lysis panel , auto Unknown Analyte Negati ve Not Available [facility] Surgery Schedule [address] [place], [address], 01/31/2025 13:46:54 02/01/20 25 01/31/2025 urina lysis panel , auto Unknown Analyte Negati ve Not Available [facility] Surgery Schedule [address] [place], [address], 01/31/2025 13:46:54 02/01/20 25 01/31/2025 urina lysis panel , auto Unknown Analyte Negati ve Not Available [facility] Surgery Schedule [address] [place], [address], 01/31/2025 13:46:54 02/01/20 25 01/31/2025 urina lysis panel , auto Unknown Analyte Negati ve Not Available [facility] Surgery Schedule [address] [place], [address], 01/31/2025 13:46:54 02/01/20 25 01/31/2025 urina lysis panel , auto Unknown Analyte Trace Not Available [facility] Surgery Schedule [address] [place], [address], 01/31/2025 13:46:54 02/01/20 25 01/31/2025 urina lysis panel , auto Unknown Analyte Negati ve Not Available [facility] Surgery Schedule [facility] [place], [address], 01/31/2025 13:46:54 02/01/20 25 01/31/2025 urina lysis panel , auto Unknown Analyte Normal Not Available [facility] Surgery Schedule [address] [place], [address], 01/31/2025 13:46:54 02/01/20 25 01/31/2025 urina lysis panel , auto Unknown Analyte Normal Not Available [facility] Surgery Schedule [facility] [place], [address], 01/31/2025 13:46:54 02/01/20 25 01/31/2025 urina lysis panel , auto Unknown Analyte Negati ve Not Available [facility] Surgery Schedule [facility] [place], [address], 01/31/2025 13:46:54 02/01/20 25 01/31/2025 urina lysis panel , auto Unknown Analyte Negati ve Not Available [facility] Surgery Schedule [address] [place] [address], [address], 01/31/2025 13:46:54 02/01/20 25 01/31/2025 urina lysis panel , auto Unknown Analyte Normal Not Available [facility] Surgery Schedule [facility] [place], [address], 01/31/2025 13:46:54 02/01/20 25 01/31/2025 urina lysis panel , auto Unknown Analyte Normal Not Available [facility] Surgery Schedule [facility] [place], [address], 01/31/2025 13:46:54 02/01/20 25 01/31/2025 urina lysis panel , auto Unknown Analyte Negati ve Not Available [facility] Surgery Schedule [facility] [place], [address], 01/31/2025 13:46:54 02/01/20 25 01/31/2025 urina lysis panel , auto Unknown Analyte Negati ve Not Available [facility] Surgery Schedule [address] [place], [address], 01/31/2025 13:46:54 02/01/20 25 01/31/2025 urina lysis panel , auto Unknown Analyte Negati ve Not Available [facility] Surgery Schedule [address] [place], [address], 01/31/2025 13:46:54 02/01/20 25 01/31/2025 urina lysis panel , auto Unknown Analyte Negati ve Not Available [facility] Surgery Schedule [address] [place], [address], 01/31/2025 13:46:54 03/05/20 25 03/05/2025 urina lysis panel , auto Unknown Analyte Clean Catch Not Available [facility] [address], [place], [address], 03/05/2025 15:29:24 03/05/20 25 03/05/2025 urina lysis panel , auto Unknown Analyte Yellow Not Available [facility] [address], [place], [address], 03/05/2025 15:29:24 03/05/20 25 03/05/2025 urina lysis panel , auto Unknown Analyte Clear Not Available [facility] [address], [place], [address], 03/05/2025 15:29:24 03/05/20 25 03/05/2025 urina lysis panel , auto Unknown Analyte 1.025 Not Available [facility] [place] [address], [place], [address], 03/05/2025 15:29:24 03/05/20 25 03/05/2025 urina lysis panel , auto Unknown Analyte 1.003 - 1.030 Not Available [facility] [address], [place], [address], 03/05/2025 15:29:24 03/05/20 25 03/05/2025 urina lysis panel , auto Unknown Analyte 5.0 Not Available [facility] [address], [place], [address], 03/05/2025 15:29:24 03/05/20 25 03/05/2025 urina lysis panel , auto Unknown Analyte 5.0 - 8.0 Not Available [facility] [address], [place], [address], 03/05/2025 15:29:24 03/05/20 25 03/05/2025 urina lysis panel , auto Unknown Analyte Negati ve Not Available [facility] [address], [place], [address], 03/05/2025 15:29:24 03/05/20 25 03/05/2025 urina lysis panel , auto Unknown Analyte Negati ve Not Available [facility] [address], [place], [address], 03/05/2025 15:29:24 03/05/20 25 03/05/2025 urina lysis panel , auto Unknown Analyte Negati ve Not Available [facility] [address], [place], [address], 03/05/2025 15:29:24 03/05/20 25 03/05/2025 urina lysis panel , auto Unknown Analyte Negati ve Not Available [facility] [address], [place], [address], 03/05/2025 15:29:24 03/05/20 25 03/05/2025 urina lysis panel , auto Unknown Analyte Trace Not Available [facility] [address], [place], [address], 03/05/2025 15:29:24 03/05/20 25 03/05/2025 urina lysis panel , auto Unknown Analyte Negati ve Not Available [facility] [address], [place], [address], 03/05/2025 15:29:24 03/05/20 25 03/05/2025 urina lysis panel , auto Unknown Analyte Normal Not Available [facility] [address], [place], [address], 03/05/2025 15:29:24 03/05/20 25 03/05/2025 urina lysis panel , auto Unknown Analyte Normal Not Available [facility] [address], [place], [address], 03/05/2025 15:29:24 03/05/20 25 03/05/2025 urina lysis panel , auto Unknown Analyte Negati ve Not Available [facility] [address], [place], [address], 03/05/2025 15:29:24 03/05/20 25 03/05/2025 urina lysis panel , auto Unknown Analyte Negati ve Not Available [facility] [address], [place], [address], 03/05/2025 15:29:24 03/05/20 25 03/05/2025 urina lysis panel , auto Unknown Analyte Normal Not Available [facility] [address], [place], [address], 03/05/2025 15:29:24 03/05/20 25 03/05/2025 urina lysis panel , auto Unknown Analyte Normal Not Available [facility] [address], [place], [address], 03/05/2025 15:29:24 03/05/20 25 03/05/2025 urina lysis panel , auto Unknown Analyte 1 mg/dL Not Available [facility] [address], [place], [address], 03/05/2025 15:29:24 03/05/20 25 03/05/2025 urina lysis panel , auto Unknown Analyte Negati ve Not Available [facility] [address], [place], [address], 03/05/2025 15:29:24 03/05/20 25 03/05/2025 urina lysis panel , auto Unknown Analyte Negati ve Not Available [facility] [address], [place], [address], 03/05/2025 15:29:24 03/05/20 25 03/05/2025 urina lysis panel , auto Unknown Analyte Negati ve Not Available [facility] [address], [place], [address], 03/05/2025 15:29:24 03/27/20 25 03/27/2025 urina lysis panel , auto Unknown Analyte Clean Catch Not Available [facility] [place] [facility] [address], [place], [address], 03/27/2025 14:04:44 03/27/20 25 03/27/2025 urina lysis panel , auto Unknown Analyte Yellow Not Available [facility] With [address], [place], [address], 03/27/2025 14:04:44 03/27/20 25 03/27/2025 urina lysis panel , auto Unknown Analyte Clear Not Available [facility] With [place] [address], [place], [address], 03/27/2025 14:04:44 03/27/20 25 03/27/2025 urina lysis panel , auto Unknown Analyte 1.020 Not Available [facility] With [address], [place], [address], 03/27/2025 14:04:44 03/27/20 25 03/27/2025 urina lysis panel , auto Unknown Analyte 1.003 - 1.030 Not Available [facility] With [place] [address], [place], [address], 03/27/2025 14:04:44 03/27/20 25 03/27/2025 urina lysis panel , auto Unknown Analyte 5.0 Not Available [facility] With [facility] [address], [place], [address], 03/27/2025 14:04:44 03/27/20 25 03/27/2025 urina lysis panel , auto Unknown Analyte 5.0 - 8.0 Not Available [facility] [place] [facility] [address], [place], [address], 03/27/2025 14:04:44 03/27/20 25 03/27/2025 urina lysis panel , auto Unknown Analyte Negati ve Not Available [facility] With [address], [place], [address], 03/27/2025 14:04:44 03/27/20 25 03/27/2025 urina lysis panel , auto Unknown Analyte Negati ve Not Available [facility] With [address], [place], [address], 03/27/2025 14:04:44 03/27/20 25 03/27/2025 urina lysis panel , auto Unknown Analyte Negati ve Not Available [facility] With [address], [place], [address], 03/27/2025 14:04:44 03/27/20 25 03/27/2025 urina lysis panel , auto Unknown Analyte Negati ve Not Available [facility] [place] [facility] [address], [place], [address], 03/27/2025 14:04:44 03/27/20 25 03/27/2025 urina lysis panel , auto Unknown Analyte Negati ve Not Available [facility] [place] With [address], [place], [address], 03/27/2025 14:04:44 03/27/20 25 03/27/2025 urina lysis panel , auto Unknown Analyte Negati ve Not Available [facility] With [address], [place], [address], 03/27/2025 14:04:44 03/27/20 25 03/27/2025 urina lysis panel , auto Unknown Analyte Normal Not Available [facility] With [address], [place], [address], 03/27/2025 14:04:44 03/27/20 25 03/27/2025 urina lysis panel , auto Unknown Analyte Normal Not Available [facility] With [address], [place], [address], 03/27/2025 14:04:44 03/27/20 25 03/27/2025 urina lysis panel , auto Unknown Analyte Negati ve Not Available [facility] With [address], [place], [address], 03/27/2025 14:04:44 03/27/20 25 03/27/2025 urina lysis panel , auto Unknown Analyte Negati ve Not Available [facility] With [facility] [address], [place], [address], 03/27/2025 14:04:44 03/27/20 25 03/27/2025 urina lysis panel , auto Unknown Analyte Normal Not Available [facility] With [address], [place], [address], 03/27/2025 14:04:44 03/27/20 25 03/27/2025 urina lysis panel , auto Unknown Analyte Normal Not Available [facility] With [address], [place], [address], 03/27/2025 14:04:44 03/27/20 25 03/27/2025 urina lysis panel , auto Unknown Analyte Negati ve Not Available [facility] [place] With [address] Hendrix F, [place], [address], 03/27/2025 14:04:44 03/27/20 25 03/27/2025 urina lysis panel , auto Unknown Analyte Negati ve Not Available [facility] With [address] Simeon Han, [place], [address], 03/27/2025 14:04:44 03/27/20 25 03/27/2025 urina lysis panel , auto Unknown Analyte Negati ve Not Available [facility] With [address] Simeon Han, [place], [address], 03/27/2025 14:04:44 03/27/20 25 03/27/2025 urina lysis panel , auto Unknown Analyte Negati ve Not Available [facility] With [address] Hendrix F, [place], [address], 03/27/2025 14:04:44 05/05/20 25 05/05/2025 urina lysis panel , auto Unknown Analyte Clean Catch Not Available [facility] [address], [place], [address], 05/05/2025 16:22:07 05/05/20 25 05/05/2025 urina lysis panel , auto Unknown Analyte Yellow Not Available [facility] [address], [place], [address], 05/05/2025 16:22:07 05/05/20 25 05/05/2025 urina lysis panel , auto Unknown Analyte Clear Not Available [facility] [address], [place], [address], 05/05/2025 16:22:07 05/05/20 25 05/05/2025 urina lysis panel , auto Unknown Analyte 1.015 Not Available [facility] [address], [place], [address], 05/05/2025 16:22:07 05/05/20 25 05/05/2025 urina lysis panel , auto Unknown Analyte 1.003 - 1.030 Not Available [facility] [address], [place], [address], 05/05/2025 16:22:07 05/05/20 25 05/05/2025 urina lysis panel , auto Unknown Analyte 5.0 Not Available [facility] [address], [place], [address], 05/05/2025 16:22:07 05/05/20 25 05/05/2025 urina lysis panel , auto Unknown Analyte 5.0 - 8.0 Not Available [facility] [address], [place], [address], 05/05/2025 16:22:07 05/05/20 25 05/05/2025 urina lysis panel , auto Unknown Analyte Negati ve Not Available [facility] [address], [place], [address], 05/05/2025 16:22:07 05/05/20 25 05/05/2025 urina lysis panel , auto Unknown Analyte Negati ve Not Available [facility] [address], [place], [address], 05/05/2025 16:22:07 05/05/20 25 05/05/2025 urina lysis panel , auto Unknown Analyte Negati ve Not Available [facility] [address], [place], [address], 05/05/2025 16:22:07 05/05/20 25 05/05/2025 urina lysis panel , auto Unknown Analyte Negati ve Not Available [facility] [address], [place], [address], 05/05/2025 16:22:07 05/05/20 25 05/05/2025 urina lysis panel , auto Unknown Analyte Negati ve Not Available [facility] [address], [place], [address], 05/05/2025 16:22:07 05/05/20 25 05/05/2025 urina lysis panel , auto Unknown Analyte Negati ve Not Available [facility] [address], [place], [address], 05/05/2025 16:22:07 05/05/20 25 05/05/2025 urina lysis panel , auto Unknown Analyte Normal Not Available [facility] [address], [place], [address], 05/05/2025 16:22:07 05/05/20 25 05/05/2025 urina lysis panel , auto Unknown Analyte Normal Not Available [facility] [address], [place], [address], 05/05/2025 16:22:07 05/05/20 25 05/05/2025 urina lysis panel , auto Unknown Analyte Negati ve Not Available [facility] [address], [place], [address], 05/05/2025 16:22:07 05/05/20 25 05/05/2025 urina lysis panel , auto Unknown Analyte Negati ve Not Available [facility] [address], [place], [address], 05/05/2025 16:22:07 05/05/20 25 05/05/2025 urina lysis panel , auto Unknown Analyte Normal Not Available [facility] [address], [place], [address], 05/05/2025 16:22:07 05/05/20 25 05/05/2025 urina lysis panel , auto Unknown Analyte Normal Not Available [facility] [address], [place], [address], 05/05/2025 16:22:07 05/05/20 25 05/05/2025 urina lysis panel , auto Unknown Analyte Negati ve Not Available [facility] [address], [place], [address], 05/05/2025 16:22:07 05/05/20 25 05/05/2025 urina lysis panel , auto Unknown Analyte Negati ve Not Available [facility] [address], [place], [address], 05/05/2025 16:22:07 05/05/20 25 05/05/2025 urina lysis panel , auto Unknown Analyte Negati ve Not Available [facility] [address], [place], [address], 05/05/2025 16:22:07 05/05/20 25 05/05/2025 urina lysis panel , auto Unknown Analyte Negati ve Not Available [facility] [address], [place], [address], 05/05/2025 16:22:07 01/29/20 25 01/28/2025 XR, abdom en, 1 view No observ ation record ed. [email or web address] Not Available 01/19 10:51:08 05/07/20 25 05/05/2025 XR, abdom en, 1 view No observ ation record ed. [facility] [address] [facility] [address], [place], [address], 05/08/2025 15:48:32 06/18/20 25 06/18/2025 CT, brain , w/o contr ast No observ ation record ed. [email or web address] Not Available 2024 09:04:46 06/19/20 25 06/18/2025 stres s echoc ardio gram (PROC ) No observ ation record ed. [address] (Radiology) [address] [place] [address] , [place], [address], 07/01/2025 09:04:31 06/19/20 25 06/19/2025 CT, angio gram, carot id arter ies, w/ contr ast No observ ation record ed. [address] (Radiology) [address] [place], [address], 07/01/2025 09:03:58 Result Notes None recorded. Problems Name Problem SNOMED Code Status Onset Date Resolution Date Notes Provider Name and Address Organization Details Recorded Time Urolithiasis 11053674 Active 018 Murelene Oscar [facility] 8 13:42:46 Problem Notes None recorded. Procedures Surgical History Date Name Laterality Status Provider Name and Address Organization Details Recorded Time 05/05/20 25 Post Void Residual; Ultrasound completed [facility] 05/05/2025 16:47:03 01/22/20 25 Post Void Residual; Ultrasound completed [facility] 01/21/2025 10:54:51 08/20/20 21 Unlisted px femur/knee [facility] 09/16/2021 12:54:24 Appendectomy [facility] 03/16/2017 16:31:38 Kidney Stones [facility] 03/16/2017 16:31:46 Knee arthroscopy/surg gilbert completed [facility] 06/11/2020 14:13:46 Imaging Results None recorded. [...] Updated DateTime 01/28/2025 175.26 cm 31.9 kg/m2 65191.95 g Olimpia Voss [facility] 01/28/2025 13:23:50 Date Recorded Body height Body mass index (BMI) Body weight Provider Name and Address Organization Details Last Updated DateTime 03/05/2025 175.26 cm 31.5 kg/m2 17350.17 g Avelino Villarreal [facility] 03/05/2025 15:33:56 Date Recorded Body height Body mass index (BMI) Body weight Provider Name and Address Organization Details Last Updated DateTime 03/27/2025 175.26 cm 31.9 kg/m2 27902.95 g Rica Huynh [facility] 03/27/2025 14:04:34 Date Recorded Body height Body mass index (BMI) Body weight Provider Name and Address Organization Details Last Updated DateTime 05/05/2025 175.26 cm 31.5 kg/m2 30233.17 g [facility] 05/05/2025 16:46:20 Social History Question Answer Notes LastModified by Organizat ion Details LastModified Time Tobacco Smoking Status Never Smoker Dane Villaltat [facility] 03/16/2017 16:31:28 What Was The Date Of Your Most Recent Tobacco Screening? 05/05/2025 [email or web address] Information not available 05/05/2025 Sex: Unknown Functional [...] available 03/16 16:31:15 Medical History Condition Response Diabetes Y Arthritis Y Hypertension Y Kidney Stones Y Sleep Apnea Y Immunizations Vaccine Type Date Status Note Provider Nam e and Address Organization Details Recorded Time Influenza, adjuvanted, trivalent, PF 7 completed Halie Valdivia [facility] 05/12/2025 16:16:53 Influenza, MDCK, quadrivalent, PF 8 completed Halie Valdivia [facility] 05/12/2025 16:16:53 zoster recombinant 5 completed Halie Valdivia [facility] 05/12/2025 16:16:53 Influenza, high-dose, quadrivalent, PF 0 completed Halie [facility] 05/12/2025 16:16:53 Influenza, high-dose, quadrivalent, PF 1 completed Halie [facility] 05/12/2025 16:16:53 Influenza, high-dose, quadrivalent, PF 2 completed Halie [facility] 05/12/2025 16:16:53 Influenza, high-dose, quadrivalent, PF 3 completed Halie [facility] 05/12/2025 16:16:53 COVID-19, mRNA, LNP-S, PF, 100 mcg/0.5mL dose or 50 mcg/0.25mL dose 1 completed [facility] 05/12/2025 16:16:53 COVID-19, mRNA, LNP-S, PF, 100 mcg/0.5mL dose or 50 mcg/0.25mL dose 1 completed [facility] 05/12/2025 16:16:53 Pneumococcal conjugate PCV 13 8 completed [facility] 05/12/2025 16:16:53 Influenza, high-dose, trivalent, PF 4 completed [facility] 05/12/2025 16:16:53 Past Encounters Encounter ID Performer Location Encounter Start Date Encounter Closed Date Diagnosis/Indication Diagnosis SNOMED-CT Code Diagnosis ICD10 Code Diagnosis IMO Codes Diagnosis Note [id number] CORINA WELLS MD [facility] [address] [place] [address] ,[place] [address] 03/16/2017 15:51:14 03/20/2017 15:22:54 Ureteric stone 36336625 N20.1 [id number] CORINA WELLS MD SURGERY SCHEDULE [address] [place] [address] 03/21/2017 12:57:34 03/21/2017 13:02:03 Ureteric stone 02200601 N20.1 [id number] CORINA WELLS MD [facility] [address] [place] [address] ,[place] [address] 03/23/2017 14:23:50 03/24/2017 11:40:21 Ureteric stone 15918213 N20.1 [id number] CORINA WELLS MD [facility] [address],[place] [address] 06/22/2017 14:23:24 07/13/2017 13:02:35 Kidney stone 36735229 N20.0 Impotence of organic origin 722018174 N52.9 Benign pro static hyperplasia with outflow obstruction 030447903 N40.1 [id number] CORINA WELLS MD [facility] [address],[place] [address] 8 01/04/2018 14:14:24 01/11/2018 17:57:48 Kidney stone 78177557 N20.0 Benign pro static hyperplasia with outflow obstruction 846135809 N40.1 [id number] CORINA WELLS MD [facility] [address],[place] [address] 8 07/05/2018 13:12:15 07/11/2018 17:29:14 Kidney stone 12550765 N20.0 [id number] CORINA WELLS MD [facility] [address],[place] [address] 8 01/10/2019 12:52:02 01/21/2019 09:50:52 Benign prostatic hyperplasia with outflow obstruction 890939830 N40.1 Kidney stone 24954242 N2 0.0 [id number] CORINA WELLS MD [facility] [address],[place] [address] 03/28/2019 13:25:50 04/10/2019 10:43:45 Balanitis 62307246 N48.1 [id number] CORINA WELLS MD SURGERY SCHEDULE [address] [place] [address] 04/23/2019 12:57:41 04/23/2019 14:14:26 Postoperative pain 320292834 G89.18 [id number] CORINA WELLS MD [facility] [address],[place] [address] 05/30/2019 14:14:20 06/10/2019 08:25:49 Phimosis 429376569 N47.1 Kidney stone 62416250 N2 0.0 [id number] CORINA WELLS MD [facility] [address] [place] [address] 8 06/11/2020 13:50:34 06/15/2020 07:52:45 Kidney stone 57721659 N20.0 [id number] CORINA WELLS MD [facility] [address] [place] [address] 8 06/24/2021 14:57:33 06/25/2021 17:04:03 Primary erectile dysfunction 755232108 N52.9 Kidney stone 59862957 N2 0.0 [id number] CORINA WELLS MD [facility] [address],[place] [address] 8 07/29/2021 13:48:44 07/30/2021 14:41:48 Ureteric stone 98002038 N20.1 Kidney stone 34168117 N2 0.0 Renal colic 7268427 N23 [id number] CORINA WELLS MD SURGERY SCHEDULE [address] [place] [address] 08/03/2021 14:28:30 08/03/2021 14:30:19 Ureteric stone 09723872 N20.1 [id number] CORINA WELLS MD [facility] [address],[place] [address] 8 09/16/2021 12:52:49 09/16/2021 13:12:02 Kidney stone 78036499 N20.0 Benign pro static hyperplasia with outflow obstruction 966759039 N40.1 [id number] CORINA WELLS MD [facility] [address] [place] [address] 8 03/24/2022 13:03:19 04/02/2022 15:41:22 Benign prostatic hyperplasia with outflow obstruction 797538314 N40.1 Kidney stone 85782744 N2 0.0 [id number] CORINA WELLS MD [facility] [address] [place] [address] 8 09/22/2022 13:16:17 09/29/2022 07:44:01 Benign prostatic hyperplasia with outflow obstruction 002781543 N40.1 Kidney stone 93969734 N2 0.0 [id number] CORINA WELLS MD [facility] [address] ,[place] [address] 03/30/2023 13:46:10 03/31/2023 08:49:04 Benign prostatic hyperplasia with outflow obstruction 324148599 N40.1 Kidney stone 88088921 N2 0.0 Primary er ectile dysfunction 354955516 N52.9 [id number] CORINA WELLS MD [facility] [address] ,[address] [place] [address] 04/11/2024 14:13:38 04/11/2024 15:10:13 Primary erectile dysfunction 835804702 N52.9 Benign pro static hyperplasia with outflow obstruction 444190659 N40.1 [id number] CORINA WELLS MD [facility] [address] [address] 01/21/2025 10:29:11 01/21/2025 11:46:23 Benign prostatic hyperplasia with outflow obstruction 432345193 N40.1 Increase tamsulosin dose for symptom management . Continue monitoring for improvemen t. Consider surgery if symptoms persist. Kidney stone 97615597 N2 0.0 Plan for non-surgic al treatment to pass 3 mm stone. Pain management with analgesics . Surgery if stone does not pass naturally. [id number] CORINA WELLS MD [facility] [address] [place], [place] [address] 01/28/2025 11:09:13 01/28/2025 16:23:38 Benign prostatic hyperplasia with outflow obstruction 207030536 N40.1 Kidney stone 38954955 N2 0.0 [id number] RAKAN EARL MD SURGERY SCHEDULE [address] [place] [phone] 01/31/2025 13:00:00 01/31/2025 13:01:39 [id number] RAKAN EARL MD [facility] [address] [place] [address] 03/05/2025 14:37:20 03/05/2025 16:21:58 Kidney stone 90641745 N20.0 15279 Urge incon tinence of urine 82000327 N39.41 [id number] He will try the Gemtesa samples and follow-up with me in 1 month [id number] CORINA WELLS MD [facility] [address] [facility],[place] [address] 03/27/2025 13:21:22 03/27/2025 14:19:49 Benign prostatic hyperplasia with outflow obstruction 730645182 N40.1 N13.8 27973898 - Continue increased tamsulosin therapy. Monitor voiding symptoms. Urinary incontinence 165 558994 R32 86436702 - Stop Gemtesa. Increase tamsulosin to two daily. Ultrasound planned for bladder evaluation . Assess for structural issues. Kidney stone 32571050 N2 0.0 90635 - Follow-up post-ESWL. Evaluate interventi on outcome and check for recurring symptoms. [id number] CORINA WELLS MD [facility] [address] [place] [address] 05/05/2025 15:31:15 05/05/2025 16:49:56 Benign prostatic hyperplasia with outflow obstruction 485387549 N13.8 N40.1 99599638 - Continue tamsulosin 0.8 mg daily.- Discontinu e solifenaci n due to dizziness; initiate fesoterodi ne.- Consider cystscopy if symptoms persist. - Monitor urinary symptoms and adjust medication s as needed. Nocturia 418988489 R35.1 42731 - Addressed with medication adjustment s and monitoring . Kidney stone 92953135 N2 0.0 97891 - Follow-up post-ESWL. 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 No dysuria. - CT scan at [facility]: 3 mm kidney stone CORINA WELLS MD [address] [place] [address], [address], [facility] 02/09/2025 13:45:17 03/05/2025 text/html Patient is [...] until the recent days. RAKAN EARL MD [address] [place] [address], [address], [facility] 03/06/2025 10:38:36 03/27/2025 text/html - The [...] Continues tamsulosin therapy noted. CORINA WELLS MD [address] [place], [address], [facility] 04/06/2025 15:12:32 05/05/2025 text/html The patient [...] urine volume: 66 mL CORINA WELLS MD [address] [place], [address], [facility] 05/06/2025 21:24:04
--- OUTSIDE RECORDS SUMMARY | 2025-08-20 07:52 | XMS_ITS | Patient Health Record ---
Author Organization [facility] [place] Address [address] [place] [address] [place] [address] Care Team Providers Care Preventive Medicine Officer Name Role Phone FRANK MATIAS Unavailable [phone] Reason For Referral No Information Medications Medication SIG (Take, Route, Frequency, Duration) Notes Start Date End Date Status glipiZIDE ER 10 MG Oral; Duration: 90 Days Active Famotidine 20 MG Oral; Duration: 90 Days Active Atorvastatin Calcium 20 MG Oral; Duration: 90 Days Active Pioglitazone HCl 15 MG Oral; Duration: 90 Days Active Tamsulosin HCl 0.4 MG Oral; Duration: 90 Days Active Lisinopril-hydroCHLOROthiaz geno 20-12.5 MG Oral; Duration: 90 Days Ac tive Allopurinol 100 MG Oral; Duration: 90 Days Active Social History Tobacco Use: [...] Provider Diagnosis [facility] [place] [address] [place], [place] [id number] 03/11/2025 FRANK MATIAS Plan Of Treatment No Information Medical (General) History Medical History History ICD Code hyperlipidemia, chronic gout y arhtritis, depresion, gerd, ckd, type 2 diabetes
--- OUTSIDE RECORDS SUMMARY | 2025-08-20 07:52 | XMS_ITS | Clinical Summary ---
[facility] Address [address] [place] [address] Care Team Providers Care Vacuum Evaporation Operator Name Role Phone Samantha Vallecillo APRN Primary Care Provider [phone] Allergies No known active allergies Medications aspirin [...] Encounters Date Type Department Care Team Description 08/18/2025 Telephone [facility] [address] [address] Melanie Scott MD [facility] - HEART MONITOR QUESTION 07/30/2025 5:00 AM EDT Outside Facility Service [facility] [address] [address] Melanie Scott MD 07/28/2025 1:55 PM EDT Ancillary Procedure [facility] [address] [address] Precordial chest pain; Palpitations 07/28/2025 Travel 07/28/2025 Telephone [facility] [address] [address] Melanie Scott MD 06/19/2025 5:00 AM EDT Outside Facility Service [facility] [address] [address] Melanie Scott MD from Last 3 Months [...] 3 Months Insurance MEDICARE A & [facility] Care Teams Vacuum Evaporation Operator Relationship Specialty Start Date End Date Samantha Vallecillo APRN [address] [place] [address] PCP - General Family Medicine 06/19/25
--- OUTSIDE RECORDS SUMMARY | 2025-08-20 07:52 | XMS_ITS | Referral Summary ---
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
--- OUTSIDE RECORDS SUMMARY | 2025-08-20 07:52 | XMS_ITS | Data Portability ---
Author Organization [facility] Address [address] [place] [address] Assessment Encounter Date Assessment Date Assessment LastModified by Organization Details LastModified Time 03/21/2025 03/21/2025 RF glipizide per plan below. Patient pending nephrology appt for kidneys. We were able to get urology r/s for next week 03/27/2025 at 1:45 in [place], he was provided appt info. He was advised to seek care with any severe or worsening pain, fever or chills. He was unable to void today, he will try to return urine sample for UA/culture today or tomorrow. Follow up as planned, sooner if needed Not available 03/21/2025 10:48:17 04/18/2025 04/18/2025 Change glipizide to jardiance as prescribed. Samples as packaged per hose operator provided to patient today. Labs per [...] Dr. Scott /Fei office on 05/29. Power [phone] (daughter) Not available 05/16/2025 19:21:13 05/30/2025 05/30/2025 Plan to update shingrix at follow up. Continue jardiance - will increase with refill. Keep planned specialist appointments. Follow up in 1 month for recheck, sooner if needed Not available 06/01/2025 16:36:45 06/18/2025 06/18/2025 Going directly to ER for evaluation Spoke with Concha at [facility] ER at 2:04 PM. His daughter Power is driving him directly to ER given his symptomatic hypotension. We did discuss the thyroid finding, I will place order for evaluation of incidental thryoid nodule. If he is not admitted to the hospital, I will refer to custodial facility for placement. He and daughter are agreeable with this plan. Not available 06/18/2025 15:40:45 Plan of Treatment Reminders Order Date Submit Date Provider Last Modified By Organization Details Last Modified Time Details Appointments None recorded. Lab HbA1c (hemoglobin A1c), blood [address], [address], 5 14:15:14 HbA1c (hemoglobin A1c), blood [address], [address], 5 10:17:29 CMP, serum or plasma 2024 025 [facility]I [facility] [address] [place] [address], [address], 5 05:06:44 CBC w/ auto diff 2024 025 [facility]THI [facility] [address] [place] [address], [address], 5 05:06:43 lipid panel, serum 2024 025 [facility]I [facility]), [address] [place] [address], [place], [address], 05:06:45 urinalysis, dipstick 2024 025 [facility] [place], [address] [place] [address], [place], [address], 08:04:10 Referral None recorded. Procedures None recorded. Surgeries None recorded. Imaging US, thyroid - First available. [address] ([facility]ly [facility], [facility]), [address], [place], [address], 10:45:57 Medication Orders lisinopril 20 mg-hydrochl orothiazide 12.5 mg tablet 2024 025 [facility], [address] [place] [address], [address], 16:26:13 allopurinol 100 mg tablet 2024 025 [facility], [address] [place] [address], [address], 09:48:58 Jardiance 10 mg tablet 2024 025 [facility] [place], [address], 5 10:18:12 pioglitazon e 15 mg tablet 2024 025 [facility], [place], [address], 5 14:22:17 glipizide ER 10 mg tablet, extended release 24 hr 2024 025 [facility], [place], [address], 10:09:07 Patient TargetsNo targets recorded. Patient Instructions Encounter Date Encounter Id Patient Instructions Last Modified By Organization Details Last Modified Time 03/21/2025 [id number] learning about type 2 diabetes Not available 03/21/2025 10:02:30 type 2 diabetes: care instructions Not available 03/21/2025 10:02:30 high cholesterol : care instructions Not available 03/21/2025 10:02:30 04/18/2025 [id number] learning about type 2 diabetes Not available 04/18/2025 10:17:29 type 2 diabetes: care instructions Not available 04/18/2025 10:17:29 Reason for Referral None Reported. Results Created Date Observation Date Name Description Value Unit Range Abnormal Flag Note LastModifiedBy Organization Detail LastModifiedTime 02/27/20 25 02/27/2025 CBC WITH DIFFE RENTI AL/PL ATELE T WBC 14.3 x10e3 /uL 3.4-10 .8 above high normal Not Available [facility] [address] [place], [address], 02/27/2025 09:28:30 02/27/2002/27/2025 CBC WITH DIFFE RENTI AL/PL ATELE T RBC 4.07 x10e6 /uL 4.14-5 .80 below low normal Not Available [facility] [address] [place], [address], 02/27/2025 09:28:30 02/27/2002/27/2025 CBC WITH DIFFE RENTI AL/PL ATELE T hemoglobin 12.9 g/dL 13.0-1 7.7 below low normal Not Available [facility] [address] [place], [address], 02/27/2025 09:28:30 02/27/20 25 02/27/2025 CBC WITH DIFFE RENTI AL/PL ATELE T hematocrit 38.3 % 37.5-5 1.0 normal Not Available [facility] [address] [facility], [place], [address], 02/27/2025 09:28:30 02/27/20 25 02/27/2025 CBC WITH DIFFE RENTI AL/PL ATELE T MCV 94 fL 79-97 normal Not Available [facility] [address] [facility], [place], [address], 02/27/2025 09:28:30 02/27/20 25 02/27/2025 CBC WITH DIFFE RENTI AL/PL ATELE T MCH 31.7 pg 26.6-3 3.0 normal Not Available [facility] [address] [facility], [place], [address], 02/27/2025 09:28:30 02/27/20 25 02/27/2025 CBC WITH DIFFE RENTI AL/PL ATELE T MCHC 33.7 g/dL 31.5-3 5.7 normal Not Available [facility] [address] [facility], [place], [address], 02/27/2025 09:28:30 02/27/20 25 02/27/2025 CBC WITH DIFFE RENTI AL/PL ATELE T RDW 12.4 % 11.6-1 5.4 Not Available [facility] [address] [facility], [place], [address], 02/27/2025 09:28:30 02/27/20 25 02/27/2025 CBC WITH DIFFE RENTI AL/PL ATELE T platelets 277 x10e3 /uL 150-45 0 normal Not Available [facility] [address] [place], [address], 02/27/2025 09:28:30 02/27/20 25 02/27/2025 CBC WITH DIFFE RENTI AL/PL ATELE T neutrophils 90 % not estab. normal Not Available [facility] [address] [facility], [place], [address], 02/27/2025 09:28:30 02/27/20 25 02/27/2025 CBC WITH DIFFE RENTI AL/PL ATELE T lymphs 6 % not estab. normal Not Available [facility] [address] [facility], [place], [address], 02/27/2025 09:28:30 02/27/20 25 02/27/2025 CBC WITH DIFFE RENTI AL/PL ATELE T monocytes 4 % not estab. normal Not Available [facility] [address] [facility], [place], [address], 02/27/2025 09:28:30 02/27/20 25 02/27/2025 CBC WITH DIFFE RENTI AL/PL ATELE T eos 0 % not estab. normal Not Available [facility] [address] [facility], [place], [address], 02/27/2025 09:28:30 02/27/20 25 02/27/2025 CBC WITH DIFFE RENTI AL/PL ATELE T basos 0 % not estab. normal Not Available [facility] [address] [facility], [place], [address], 02/27/2025 09:28:30 02/27/20 25 02/27/2025 CBC WITH DIFFE RENTI AL/PL ATELE T immature cells COMMERCIAL SUBCONTRACTOR Not Available [facility] [address] [facility], [place], [address], 02/27/2025 09:28:30 02/27/20 25 02/27/2025 CBC WITH DIFFE RENTI AL/PL ATELE T neutrophils (absolute) 12.9 x10e3 /uL 1.4-7. 0 above high normal Not Available [facility] [address] [facility], [place], [address], 02/27/2025 09:28:30 02/27/20 25 02/27/2025 CBC WITH DIFFE RENTI AL/PL ATELE T lymphs (absolute) 0.8 x10e3 /uL 0.7-3. 1 normal Not Available [facility] [address] [facility], [place], [address], 02/27/2025 09:28:30 02/27/20 25 02/27/2025 CBC WITH DIFFE RENTI AL/PL ATELE T monocytes(ab solute) 0.5 x10e3 /uL 0.1-0. 9 normal Not Available [facility] [address] [facility], [place], [address], 02/27/2025 09:28:30 02/27/20 25 02/27/2025 CBC WITH DIFFE RENTI AL/PL ATELE T eos (absolute) 0.0 x10e3 /uL 0.0-0. 4 normal Not Available [facility] [address] [facility], [place], [address], 02/27/2025 09:28:30 02/27/20 25 02/27/2025 CBC WITH DIFFE RENTI AL/PL ATELE T baso (absolute) 0.0 x10e3 /uL 0.0-0. 2 normal Not Available [facility] [address] [facility], [place], [address], 02/27/2025 09:28:30 02/27/20 25 02/27/2025 CBC WITH DIFFE RENTI AL/PL ATELE T immature granulocytes 0 % not estab. Not Available [facility] [address] [place], [address], 02/27/2025 09:28:30 02/27/20 25 02/27/2025 CBC WITH DIFFE RENTI AL/PL ATELE T immature grans (abs) 0.0 x10e3 /uL 0.0-0. 1 Not Available [facility] [address], [place], [address], 02/27/2025 09:28:30 02/27/20 25 02/27/2025 CBC WITH DIFFE RENTI AL/PL ATELE T NRBC COMMERCIAL SUBCONTRACTOR Not Available [facility] [address], [place], [address], 02/27/2025 09:28:30 02/27/20 25 02/27/2025 CBC WITH DIFFE RENTI AL/PL ATELE T hematology comments: COMMERCIAL SUBCONTRACTOR Not Available [facility] [address], [place], [address], 02/27/2025 09:28:30 02/27/20 25 02/27/2025 COMP. METAB OLIC PANEL (14) glucose 87 mg/dL 70-99 normal Not Available [facility] [address] [place], [address], 02/27/2025 09:28:30 02/27/20 25 02/27/2025 COMP. METAB OLIC PANEL (14) BUN 46 mg/dL 8-27 above high normal Not Available [facility] [address] [place], [address], 02/27/2025 09:28:30 02/27/20 25 02/27/2025 COMP. METAB OLIC PANEL (14) creatinine 2.05 mg/dL 0.76-1 .27 above high normal Not Available [facility] [address] [place], [address], 02/27/2025 09:28:30 02/27/20 25 02/27/2025 COMP. METAB OLIC PANEL (14) eGFR 33 mL/mi n/1.7 3 >59 below low normal Not Available [facility] [address] [place], [address], 02/27/2025 09:28:30 02/27/20 25 02/27/2025 COMP. METAB OLIC PANEL (14) BUN/creatini ne ratio 22 10-24 normal Not Available [facility] [address] [facility], [place], [address], 02/27/2025 09:28:30 02/27/20 25 02/27/2025 COMP. METAB OLIC PANEL (14) sodium 141 mmol/ L 134-14 4 normal Not Available [facility] [address] [facility], [place], [address], 02/27/2025 09:28:30 02/27/20 25 02/27/2025 COMP. METAB OLIC PANEL (14) potassium 4.6 mmol/ L 3.5-5. 2 normal Not Available [facility] [address] [facility], [place], [address], 02/27/2025 09:28:30 02/27/20 25 02/27/2025 COMP. METAB OLIC PANEL (14) chloride 106 mmol/ L 96-106 normal Not Available [facility] [address] [facility], [place], [address], 02/27/2025 09:28:30 02/27/20 25 02/27/2025 COMP. METAB OLIC PANEL (14) carbon dioxide, total 20 mmol/ L 20-29 normal Not Available [facility] [address] [facility], [place], [address], 02/27/2025 09:28:30 02/27/20 25 02/27/2025 COMP. METAB OLIC PANEL (14) calcium 10.1 mg/dL 8.6-10 .2 normal Not Available [facility] [address] [facility], [place], [address], 02/27/2025 09:28:30 02/27/20 25 02/27/2025 COMP. METAB OLIC PANEL (14) protein, total 6.7 g/dL 6.0-8. 5 normal Not Available [facility] [address] [facility] [place], [address], 02/27/2025 09:28:30 02/27/20 25 02/27/2025 COMP. METAB OLIC PANEL (14) albumin 4.2 g/dL 3.8-4. 8 normal Not Available [facility] [address] [facility], [place], [address], 02/27/2025 09:28:30 02/27/20 25 02/27/2025 COMP. METAB OLIC PANEL (14) globulin, total 2.5 g/dL 1.5-4. 5 Not Available [facility] [address] [facility] [place], [address], 02/27/2025 09:28:30 02/27/20 25 02/27/2025 COMP. METAB OLIC PANEL (14) bilirubin, total 0.2 mg/dL 0.0-1. 2 normal Not Available [facility] [address] [facility] [place], [address], 02/27/2025 09:28:30 02/27/20 25 02/27/2025 COMP. METAB OLIC PANEL (14) alkaline phosphatase 79 IU/L 44-121 normal Not Available [facility] [address] [place], [address], 02/27/2025 09:28:30 02/27/20 25 02/27/2025 COMP. METAB OLIC PANEL (14) AST (SGOT) 19 IU/L 0-40 normal Not Available [facility] [address] [facility] [place], [address], 02/27/2025 09:28:30 02/27/20 25 02/27/2025 COMP. METAB OLIC PANEL (14) ALT (SGPT) 17 IU/L 0-44 normal Not Available [facility] [address] [facility] [place], [address], 02/27/2025 09:28:30 02/27/20 25 02/27/2025 LIPID PANEL cholesterol, total 192 mg/dL 100-19 9 normal Not Available [facility] [address] [place], [address], 02/27/2025 09:28:31 02/27/20 25 02/27/2025 LIPID PANEL triglyceride s 51 mg/dL 0-149 normal Not Available [facility] [address] [place], [address], 02/27/2025 09:28:31 02/27/20 25 02/27/2025 LIPID PANEL HDL cholesterol 65 mg/dL >39 normal Not Available [facility] [address] [place], [address], 02/27/2025 09:28:31 02/27/20 25 02/27/2025 LIPID PANEL VLDL cholesterol sharona 10 mg/dL 5-40 Not Available [facility] [address] [place], [address], 02/27/2025 09:28:31 02/27/20 25 02/27/2025 LIPID PANEL LDL chol calc ([facility]) 117 mg/dL 0-99 above high normal Not Available [facility] [address] [place], [address], 02/27/2025 09:28:31 02/27/20 25 02/27/2025 LIPID PANEL LDL calc comment: COMMERCIAL SUBCONTRACTOR Not Available [facility] [address] [place], [address], 02/27/2025 09:28:31 02/27/20 25 02/27/2025 HCV ANTIB JAIME CASCA DE(PC R/GEN O) HCV Ab Non Reacti ve non reacti ve Not Available [facility] [address] [facility], [place], [address], 02/27/2025 09:28:31 02/27/20 25 02/27/2025 HCV ANTIB JAIME CASCA DE(PC R/GEN O) interpretati on: Commen t Not infec dacia with HCV unles s early or acute infec tion is suspe cted (whic h may be delay ed in an immun ocomp romis ed indiv idual ), or other evide nce exist s to indic ate HCV infec tion. Not Available [facility] [address] [facility], [place], [address], 02/27/2025 09:28:31 02/27/2002/27/2025 HEMOG LOBIN A1C hemoglobin A1C 7.2 % 4.8-5. 6 above high normal Predi abete s: 5.7 - 6.4 Diabe aguila: >6.4 Glyce blade contr ol for adult s with diabe aguila: <7.0 Not Available [facility] [address] [facility], [place], [address], 02/27/2025 09:28:32 02/27/2002/27/2025 PROST ATE-S PECIF IC [...] t be inter prete d as absol flandreau evide nce of the prese nce or absen ce of yokasta gonzalez se. Not Available [facility] ([facility]) [address], [place], [address], 02/27/2025 09:28:32 03/21/20 25 03/21/2025 urina lysis , dipst ick Leukocytes Negati ve Not Available [address], [address], 03/21/2025 17:43:51 03/21/20 25 03/21/2025 urina lysis , dipst ick Nitrite negati ve Not Available [address], [address], 03/21/2025 17:43:51 03/21/20 25 03/21/2025 urina lysis , dipst ick Urobilinogen .2 Not Available [address], [address], 03/21/2025 17:43:51 03/21/20 25 03/21/2025 urina lysis , dipst ick Protein 30 Not Available [address], [address], 03/21/2025 17:43:51 03/21/20 25 03/21/2025 urina lysis , dipst ick pH 5.5 Not Available [address], [address], 03/21/2025 17:43:51 03/21/20 25 03/21/2025 urina lysis , dipst ick Blood Hemoly zed: Trace Not Available [address], [address], 03/21/2025 17:43:51 03/21/20 25 03/21/2025 urina lysis , dipst ick Specific [place] 1.025 Not Available [address], [address], 03/21/2025 17:43:51 03/21/20 25 03/21/2025 urina lysis , dipst ick Ketone Negati ve Not Available [address], [address], 03/21/2025 17:43:51 03/21/20 25 03/21/2025 urina lysis , dipst ick Bilirubin Negati ve Not Available [address], [address], 03/21/2025 17:43:51 03/21/20 25 03/21/2025 urina lysis , dipst ick Glucose Negati ve Not Available [address], [address], 03/21/2025 17:43:51 04/18/20 25 04/19/2025 CBC WITH DIFFE RENTI AL/PL ATELE T WBC 5.3 x10e3 /uL 3.4-10 .8 normal Not Available [facility] [address] [place], [address], 04/19/2025 05:06:43 04/18/20 25 04/19/2025 CBC WITH DIFFE RENTI AL/PL ATELE T RBC 4.07 x10e6 /uL 4.14-5 .80 below low normal Not Available [facility] [address] [facility], [place], [address], 04/19/2025 05:06:43 04/18/20 25 04/19/2025 CBC WITH DIFFE RENTI AL/PL ATELE T hemoglobin 12.5 g/dL 13.0-1 7.7 below low normal Not Available [facility] [address] [place], [address], 04/19/2025 05:06:43 04/18/20 25 04/19/2025 CBC WITH DIFFE RENTI AL/PL ATELE T hematocrit 39.9 % 37.5-5 1.0 normal Not Available [facility] [address] [place], [address], 04/19/2025 05:06:43 04/18/2004/19/2025 CBC WITH DIFFE RENTI AL/PL ATELE T MCV 98 fL 79-97 above high normal Not Available [facility] [address] [place], [address], 04/19/2025 05:06:43 04/18/20 25 04/19/2025 CBC WITH DIFFE RENTI AL/PL ATELE T MCH 30.7 pg 26.6-3 3.0 normal Not Available [facility] [address] [place], [address], 04/19/2025 05:06:43 04/18/20 25 04/19/2025 CBC WITH DIFFE RENTI AL/PL ATELE T MCHC 31.3 g/dL 31.5-3 5.7 below low normal Not Available [facility] [address] [place], [address], 04/19/2025 05:06:43 04/18/20 25 04/19/2025 CBC WITH DIFFE RENTI AL/PL ATELE T RDW 12.5 % 11.6-1 5.4 Not Available [facility] [address] [place], [address], 04/19/2025 05:06:43 04/18/20 25 04/19/2025 CBC WITH DIFFE RENTI AL/PL ATELE T platelets 236 x10e3 /uL 150-45 0 normal Not Available [facility] [address] [place], [address], 04/19/2025 05:06:43 04/18/20 25 04/19/2025 CBC WITH DIFFE RENTI AL/PL ATELE T neutrophils 62 % not estab. normal Not Available [facility] [address] [place], [address], 04/19/2025 05:06:43 04/18/20 25 04/19/2025 CBC WITH DIFFE RENTI AL/PL ATELE T lymphs 25 % not estab. normal Not Available [facility] [address] [place], [address], 04/19/2025 05:06:43 04/18/20 25 04/19/2025 CBC WITH DIFFE RENTI AL/PL ATELE T monocytes 6 % not estab. normal Not Available [facility] [address] [place], [address], 04/19/2025 05:06:43 04/18/20 25 04/19/2025 CBC WITH DIFFE RENTI AL/PL ATELE T eos 6 % not estab. normal Not Available [facility] [address] [place], [address], 04/19/2025 05:06:43 04/18/20 25 04/19/2025 CBC WITH DIFFE RENTI AL/PL ATELE T basos 1 % not estab. normal Not Available [facility] [address] [place], [address], 04/19/2025 05:06:43 04/18/20 25 04/19/2025 CBC WITH DIFFE RENTI AL/PL ATELE T immature cells COMMERCIAL SUBCONTRACTOR Not Available [facility] [address] [place], [address], 04/19/2025 05:06:43 04/18/20 25 04/19/2025 CBC WITH DIFFE RENTI AL/PL ATELE T neutrophils (absolute) 3.3 x10e3 /uL 1.4-7. 0 normal Not Available [facility] ([facility]) [address] [facility], [place], [address], 04/19/2025 05:06:43 04/18/20 25 04/19/2025 CBC WITH DIFFE RENTI AL/PL ATELE T lymphs (absolute) 1.3 x10e3 /uL 0.7-3. 1 normal Not Available [facility] [address] [place], [address], 04/19/2025 05:06:43 04/18/20 25 04/19/2025 CBC WITH DIFFE RENTI AL/PL ATELE T monocytes(ab solute) 0.3 x10e3 /uL 0.1-0. 9 normal Not Available [facility] ([facility]) [address] [place], [address], 04/19/2025 05:06:43 04/18/20 25 04/19/2025 CBC WITH DIFFE RENTI AL/PL ATELE T eos (absolute) 0.3 x10e3 /uL 0.0-0. 4 normal Not Available [facility] [address] [place], [address], 04/19/2025 05:06:43 04/18/20 25 04/19/2025 CBC WITH DIFFE RENTI AL/PL ATELE T baso (absolute) 0.1 x10e3 /uL 0.0-0. 2 normal Not Available [facility] ([facility]) [address] [place], [address], 04/19/2025 05:06:43 04/18/20 25 04/19/2025 CBC WITH DIFFE RENTI AL/PL ATELE T immature granulocytes 0 % not estab. Not Available [facility] [address] [facility], [place], [address], 04/19/2025 05:06:43 04/18/20 25 04/19/2025 CBC WITH DIFFE RENTI AL/PL ATELE T immature grans (abs) 0.0 x10e3 /uL 0.0-0. 1 Not Available [facility] [address] [facility], [place], [address], 04/19/2025 05:06:43 04/18/20 25 04/19/2025 CBC WITH DIFFE RENTI AL/PL ATELE T NRBC COMMERCIAL SUBCONTRACTOR Not Available [facility] [address] [facility], [place], [address], 04/19/2025 05:06:43 04/18/20 25 04/19/2025 CBC WITH DIFFE RENTI AL/PL ATELE T hematology comments: COMMERCIAL SUBCONTRACTOR Not Available [facility] [address] [facility], [place], [address], 04/19/2025 05:06:43 04/18/20 25 04/19/2025 COMP. METAB OLIC PANEL (14) glucose 121 mg/dL 70-99 above high normal Not Available [facility] [address] [facility], [place], [address], 04/19/2025 05:06:44 04/18/20 25 04/19/2025 COMP. METAB OLIC PANEL (14) BUN 35 mg/dL 8-27 above high normal Not Available [facility] [address] [facility], [place], [address], 04/19/2025 05:06:44 04/18/20 25 04/19/2025 COMP. METAB OLIC PANEL (14) creatinine 2.02 mg/dL 0.76-1 .27 above high normal Not Available [facility] [address] [place], [address], 04/19/2025 05:06:44 04/18/20 25 04/19/2025 COMP. METAB OLIC PANEL (14) eGFR 34 mL/mi n/1.7 3 >59 below low normal Not Available [facility] [address] [place], [address], 04/19/2025 05:06:44 04/18/20 25 04/19/2025 COMP. METAB OLIC PANEL (14) BUN/creatini ne ratio 17 10-24 normal Not Available [facility] ([facility]) [address] [facility] [place], [address], 04/19/2025 05:06:44 04/18/20 25 04/19/2025 COMP. METAB OLIC PANEL (14) sodium 142 mmol/ L 134-14 4 normal Not Available [facility] ([facility]) [address] [facility], [place], [address], 04/19/2025 05:06:44 04/18/20 25 04/19/2025 COMP. METAB OLIC PANEL (14) potassium 4.5 mmol/ L 3.5-5. 2 normal Not Available [facility] ([facility]) [address] [facility], [place], [address], 04/19/2025 05:06:44 04/18/20 25 04/19/2025 COMP. METAB OLIC PANEL (14) chloride 107 mmol/ L 96-106 above high normal Not Available [facility] ([facility]) [address] [facility] [place], [address], 04/19/2025 05:06:44 04/18/20 25 04/19/2025 COMP. METAB OLIC PANEL (14) carbon dioxide, total 17 mmol/ L 20-29 below low normal Not Available [facility] ([facility]) [address] [facility] [place], [address], 04/19/2025 05:06:44 04/18/20 25 04/19/2025 COMP. METAB OLIC PANEL (14) calcium 9.6 mg/dL 8.6-10 .2 normal Not Available [facility] [address] [place], [address], 04/19/2025 05:06:44 04/18/20 25 04/19/2025 COMP. METAB OLIC PANEL (14) protein, total 6.5 g/dL 6.0-8. 5 normal Not Available [facility] [address] [place], [address], 04/19/2025 05:06:44 04/18/20 25 04/19/2025 COMP. METAB OLIC PANEL (14) albumin 4.3 g/dL 3.8-4. 8 normal Not Available [facility] [address] [place], [address], 04/19/2025 05:06:44 04/18/20 25 04/19/2025 COMP. METAB OLIC PANEL (14) globulin, total 2.2 g/dL 1.5-4. 5 Not Available [facility] [address] [place], [address], 04/19/2025 05:06:44 04/18/20 25 04/19/2025 COMP. METAB OLIC PANEL (14) bilirubin, total 0.6 mg/dL 0.0-1. 2 normal Not Available [facility] [address] [place], [address], 04/19/2025 05:06:44 04/18/20 25 04/19/2025 COMP. METAB OLIC PANEL (14) alkaline phosphatase 71 IU/L 44-121 normal Not Available [facility] [address] [place], [address], 04/19/2025 05:06:44 04/18/20 25 04/19/2025 COMP. METAB OLIC PANEL (14) AST (SGOT) 23 IU/L 0-40 normal Not Available [facility] [address] [facility] [place], [address], 04/19/2025 05:06:44 04/18/20 25 04/19/2025 COMP. METAB OLIC PANEL (14) ALT (SGPT) 17 IU/L 0-44 normal Not Available [facility] [address] [facility] [place], [address], 04/19/2025 05:06:44 04/18/20 25 04/19/2025 LIPID PANEL cholesterol, total 139 mg/dL 100-19 9 normal Not Available [facility] [address] [facility] [place], [address], 04/19/2025 05:06:45 04/18/20 25 04/19/2025 LIPID PANEL triglyceride s 60 mg/dL 0-149 normal Not Available [facility] [address] [place], [address], 04/19/2025 05:06:45 04/18/20 25 04/19/2025 LIPID PANEL HDL cholesterol 57 mg/dL >39 normal Not Available [facility] [address] [place], [address], 04/19/2025 05:06:45 04/18/20 25 04/19/2025 LIPID PANEL VLDL cholesterol sharona 13 mg/dL 5-40 Not Available [facility] [address] [place], [address], 04/19/2025 05:06:45 04/18/20 25 04/19/2025 LIPID PANEL LDL chol calc ([facility]) 69 mg/dL 0-99 Not Available [facility] [address] [place], [address], 04/19/2025 05:06:45 04/18/20 25 04/19/2025 LIPID PANEL LDL calc comment: [employer] Not Available [facility] [address] [facility], [place], [address], 04/19/2025 05:06:45 04/18/20 25 04/24/2025 IRON AND TIBC iron bind.cap.(TI BC) 300 ug/dL 250-45 0 normal Not Available [facility] [address] [facility], [place], [address], 04/24/2025 04:07:12 04/18/20 25 04/24/2025 IRON AND TIBC UIBC 183 ug/dL 111-34 3 normal Not Available [facility] [address] [facility], [place], [address], 04/24/2025 04:07:12 04/18/20 25 04/24/2025 IRON AND TIBC iron 117 ug/dL 38-169 normal Not Available [facility] [address] [facility], [place], [address], 04/24/2025 04:07:12 04/18/20 25 04/24/2025 IRON AND TIBC iron saturation 39 % 15-55 normal Not Available [facility] [address] [place], [address], 04/24/2025 04:07:12 04/18/20 25 04/23/2025 MARY EN AUTHO RIZAT ION written authorizatio n Jaspal t Mary en Autho rizat ion Recei noel. Autho rizat ion recei noel from MARY [facility] RE[facility] ST 04-23 Logge d by Sandeep Nieto an Not Available [facility] [address] [place], [address], 04/24/2025 04:07:12 04/18/20 25 04/18/2025 HbA1c (hemo globi n A1c), blood HbA1c 6.7 Not Available [address], [address], 04/18/2025 09:43:05 05/16/20 25 05/16/2025 HbA1c (hemo globi n A1c), blood HbA1c 6.8 Not Available [address], [address], 05/16/2025 13:26:07 02/20/20 25 02/19/2025 XR, shoul crissy, 2 or more view No observ ation record ed. [address] (Radiology) [address] , [place], [address], 02/21/2025 10:25:13 02/20/20 25 02/19/2025 XR, shoul crissy, 2 or more view No observ ation record ed. [address] (Radiology) [address] , [place], [address], 02/21/2025 10:24:46 05/07/20 25 05/05/2025 XR, abdom en No observ ation record ed. [facility] [address], [place], [address], 05/07/2025 09:42:29 05/16/20 25 05/16/2025 XR, chest No observ ation record ed. [email or web address] [facility] [address], [place], [address], 05/19/2025 09:20:50 05/16/20 25 05/16/2025 CT, angio gram, chest , w/o contr ast No observ ation record ed. [email or web address] [facility] [address], [place], [place], [address], 05/19/2025 09:41:06 05/16/20 25 05/16/2025 CT, head + brain , w/o contr ast No observ ation record ed. [address], [place], [place], [address], 05/19/2025 09:40:47 05/16/20 25 05/16/2025 CT, lumba r spine , w/wo contr ast No observ ation record ed. [address], [place], [place], [address], 05/19/2025 09:40:27 05/16/20 25 05/16/2025 cardi ac stres s test No observ ation record ed. [address], [place], [place], [address], 05/29/2025 08:44:47 05/16/20 25 05/16/2025 elect rasta diogr am, routi ne ECG, 12 leads min No observ ation record ed. [address], [place], [place], [address], 05/29/2025 08:44:14 05/23/20 25 05/23/2025 XR, abdom en No observ ation record ed. [address] (Radiology) [address] [place] [address] , [place], [address], 05/29/2025 08:42:01 05/26/20 CT, cervi sharona spine , w/o contr ast No observ ation record ed. Not Available 2024 10:34:15 06/15/20 25 06/15/2025 CT, head + brain , w/wo contr ast No observ ation record ed. [address], [place], [address], 06/16/2025 10:40:48 06/15/20 25 06/15/2025 CT, angio gram, head + neck, w/wo contr ast No observ ation record ed. [address], [place], [address], 06/16/2025 10:40:34 06/15/20 25 06/15/2025 CT, angio gram, head, w/ contr ast No observ ation record ed. [address], [place], [place], [address], 06/16/2025 10:40:20 06/15/20 25 06/15/2025 CT, chest + abdom en + pelvi s, w/ contr ast No observ ation record ed. [address], [place], [address], 06/16/2025 10:38:37 06/17/20 25 06/15/2025 elect rocar diogr am No observ ation record ed. [address], [place], [address], 06/18/2025 08:25:51 06/18/20 25 06/18/2025 CT, head + brain , w/o contr ast No observ ation record ed. [address] (Radiology) [address], [place], [address], 06/18/2025 16:49:00 07/27/20 25 07/27/2025 XR, chest , 1 view No observ ation record ed. [address] (Radiology) [place], [address], 07/29/2025 11:19:27 07/27/20 25 07/27/2025 CT, chest , w/o contr ast No observ ation record ed. [address] (Radiology) [address] [place], [address], 07/29/2025 11:18:41 07/27/20 25 07/27/2025 CT, abdom en + pelvi s, w/ contr ast No observ ation record ed. [address] (Radiology) [address] , [place], [address], 07/29/2025 11:18:24 07/28/20 25 07/28/2025 US, santosle x, dorothyou s, lower extre mity No observ ation record ed. [address] (Radiology) [address] , [place], [address], 07/29/2025 11:15:30 07/28/2007/28/2025 US, doppl er echoc ardio gram No observ ation record ed. [address] (Radiology) [address] [place], [address], 07/29/2025 11:12:55 Result Notes None recorded. Problems Name Problem SNOMED Code Status Onset Date Resolution Date Notes Provider Name and Address Organization Details Recorded Time Infection of toe 282319797 Completed 202310/31/2024 Samantha Vallecillo NP [address] [place] [address], [address], [place] [employer] 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 4 12:09:13 Type 2 diabetes mellitus without complicatio n 055851785 Completed 202303/21/2025 Samantha Vallecillo NP [address] [place], [address], [place] [employer] 5 10:01:28 Gastroesoph ageal reflux disease without esophagitis 842735498 Active 2023 Samantha Vallecillo NP [address] [place], [address], [employer] 4 12:09:07 Chronic gouty arthritis 46965260 Active 2023 Samantha Vallecillo NP [address] [place] [address], [address], [employer] 4 12:09:05 Body mass index 30+ - obesity 197107641 Active 2023 Samantha Vallecillo NP [address] [place] [address], [address], [employer] 4 12:09:30 Hypertensiv e disorder 83814353 Active 2023 Samantha Vallecillo NP [address] [place] [address], [address], [employer] 4 12:09:25 Hyperlipide miguel 44393063 Active 2024 Samantha Vallecillo NP [address] [place] [address], [address], [employer] 5 09:07:34 Adjustment disorder with depressed mood 17312523 Active 2024 Samantha Vallecillo NP [address] [place] [address], [address], [employer] 5 09:07:38 Chronic kidney disease 378652476 Active 2024 Samantha Vallecillo NP [address] [place] [address], [address], [employer] 5 09:59:50 Type 2 diabetes mellitus 19967617 Active 2024 Samantha Vallecillo NP [address] [place] [address], [address], [employer] 5 10:01:21 Dizziness 449126107 Active 2024 Samantha Vallecillo NP [address] [place] [address], [address], [employer] 5 15:40:33 Anemia 880528608 Active 2024 Samantha Vallecillo, BONI [address] [place] [address], [address], [employer] 15:40:40 Kidney stone 35644681 Active 2024 Samantha Vallecillo, [employer] [address] [place] [address], [address], [place] [employer] 5 15:40:30 Chronic low back pain 040344018 Active 2024 Samantha Vallecillo, BONI [address] [place] [address], [address], [employer] 15:40:38 Urinary incontinenc e 239740182 Active 2024 Samantha Vallecillo NP [address] [place] [address], [address], [employer] 15:40:22 Thyroid nodule 882542081 Active 2024 Samantha Vallecillo NP [address] [place] [address], [address], [employer] 15:40:24 Low blood pressure 50041497 Active 2024 Samantha Vallecillo NP [address] [place] [address], [address], [employer] 5 15:40:28 Neck pain 47636600 Active 2024 Samantha Vallecillo NP [address] [place] [address], [address], [employer] 15:40:27 Problem Notes None recorded. Procedures Surgical History Date Name Laterality Status Provider Name and Address Organization Details Recorded Time complete repair of rotator cuff completed [employer] 07/03/2024 12:06:07 procedure on nerve completed [employer] 07/03/2024 12:06:55 total knee replacement completed [employer] 07/03/2024 12:07:10 Appendectomy completed Griselda Powell [employer] 07/03/2024 12:07:17 total replacement of hip completed Griselda [employer]. 07/03/2024 12:07:28 Imaging Results None recorded. Procedure [...] Updated DateTime 5 175.26 cm 31.2 kg/m2 29215.0 9 g 92 /min 98 % 98 % 139/76 mm[Hg] [employer] 5 09:58:30 Date Recorded Body height Body mass index (BMI) Body weight Heart rate Oxygen saturation Oxygen saturation in Arterial blood by Pulse oximetry Systolic And Diastolic Provider Name and Address Organization Details Last Updated DateTime 5 175.26 cm 31.2 kg/m2 79588.0 9 g 70 /min 98 % 98 % 139/79 mm[Hg] [employer] 5 09:42:09 Date Recorded Body height Body mass index (BMI) Body weight Heart rate Oxygen saturation Oxygen saturation in Arterial blood by Pulse oximetry Systolic And Diastolic Provider Name and Address Organization Details Last Updated DateTime 5 175.26 cm 30.6 kg/m2 67960.3 2 g 106 /min 94 % 94 % 124/77 mm[Hg] Carolyn Ceja [employer] 5 13:15:48 Date Recorded Body height Body mass index (BMI) Body weight Heart rate Oxygen saturation Oxygen saturation in Arterial blood by Pulse oximetry Systolic And Diastolic Provider Name and Address Organization Details Last Updated DateTime 5 175.26 cm 29.8 kg/m2 56553.8 7 g 82 /min 96 % 96 % 136/78 mm[Hg] Carolyn Ceja [employer] 5 09:04:58 Date Recorded Body height Heart rate Oxygen saturation Oxygen saturation in Arterial blood by Pulse oximetry Systolic And Diastolic Provider Name and Address Organization Details Last Updated DateTime 5 175.26 cm 104 /min 98 % 98 % 86/55 mm[Hg] Carolyn [employer] 13:34:39 Social History Question Answer Notes LastModified by Organizat ion Details LastModified Time Tobacco Smoking Status Never Smoker Griselda yeung [employer]. 07/03/2024 12:05:06 Is Your Home Air Conditioned? [...] Of Your Most Recent Tobacco Screening? 06/18/2025 [email or web address] Information not available 06/18/2025 What Is Your [...] Do You Participate In Social Media? Yes [email or web address] Information not available 10/31/2024 Has Tobacco Cessation Counseling Been Provided? No Information not available 07/03/2024 Have You Recently Traveled Abroad? No Information not available 07/03/2024 Do You Have Difficulty Walking Or Climbing Stairs? Yes Information not available 07/03/2024 Are You Currently In School? No [email or web address] Information not available 10/31/2024 Do You Have Any Dietary Restrictions? Yes [email or web address] Information not available 10/31/2024 Sex: Male Functional Status Question Answer Note LastModified by Organizat ion Details LastModified Time Do you use any illicit or recreational drugs? No Information not available 07/03/2024 Do you or have you ever used any other forms of tobacco or nicotine? No [email or web address] Information not available 10/31/2024 What is your level of alcohol consumption? None Information not available 07/03/2024 Are you currently employed? No Information not available 07/03/2024 Do you have transportation difficulties? No [email or web address] Information not available 10/31/2024 Are you able [...] anxious, or unable to sleep at night)? [id number] [email or web address] Information not available 10/31/2024 Do you have [...] trivalent, PF 4 completed Samantha Vallecillo NP [address] [place] [address], [address], [employer] 11/02/2024 09:27:35 zoster recombinant 5 completed Samantha Vallecillo NP [address] [place], [address], [employer] 03/05/2025 13:28:44 Influenza, adjuvanted, trivalent, PF 7 completed Griselda yeung, [employer] 07/03/2024 11:45:29 Influenza, MDCK, quadrivalent, PF 8 completed Griselda yeung, [employer] 07/03/2024 11:45:29 Influenza, high-dose, quadrivalent, PF 0 completed Griselda yeung, [employer] 07/03/2024 11:45:30 Influenza, high-dose, quadrivalent, PF 1 completed Griselda yeung, [employer] 07/03/2024 11:45:30 Influenza, high-dose, quadrivalent, PF 2 completed Griselda yeung, [employer] 07/03/2024 11:45:30 Influenza, high-dose, quadrivalent, PF 3 completed Griselda yeung [employer] 07/03/2024 11:45:30 COVID-19, mRNA, LNP-S, PF, 100 mcg/0.5mL dose or 50 mcg/0.25mL dose 1 completed Griselda yeung [employer] 07/03/2024 11:45:30 COVID-19, mRNA, LNP-S, PF, 100 mcg/0.5mL dose or 50 mcg/0.25mL dose 1 completed Griselda yeung [facility]. 07/03/2024 11:45:30 Pneumococcal conjugate PCV 13 8 completed Griselda yeung [facility]. 07/03/2024 11:45:30 Past Encounters Encounter ID Performer Location Encounter Start Date Encounter Closed Date Diagnosis/Indication Diagnosis SNOMED-CT Code Diagnosis ICD10 Code Diagnosis IMO Codes Diagnosis Note [id number] Samantha Vallecillo NP [place] [phone] 07/03/2024 11:33:53 07/03/2024 12:37:25 Infection of toe 803202600 L08.9 Onychomyco sis of toenails 096660105 B35.1 [id number] [place] [address] 10/31/2024 10:57:05 10/31/2024 13:26:50 Type 2 diabetes mellitus without complication 597705401 E11.9 Body mass index 30+ - obesity 314040544 Z68.31 Hypertensive disorder 38 328678 I10 Chronic go uty arthritis 16535616 M1A.00X0 Gastroesop hageal reflux disease without esophagitis 791736573 K21.9 Screening for cardiovascular system disease 115470079 Z13.6 Active or passive immunization 479690621 Z23 [id number] Samantha Vallecillo NP [place] [phone] 01/30/2025 10:50:59 01/30/2025 12:11:12 Hyperlipidemia 67619710 E78.5 Type 2 ekaterina betes mellitus without complication 018874022 E11.9 Hypertensive disorder 38 744704 I10 Adult heal th examination 076899912 Z00.00 Adjustment disorder with depressed mood 79968937 F43.21 Body mass index 30+ - obesity 774989880 Z68.31 [id number] Samantha Vallecillo NP [place] [address] 0 02/26/2025 08:39:43 02/26/2025 09:34:34 Hypertensive disorder 91438327 I10 Type 2 ekaterina betes mellitus without complication 565704029 E11.9 Hyperlipidemia 06567117 E78.5 Hepatitis C screening 41 3986968 Z11.59 Screening for malignant neoplasm of prostate 067567612 Z12.5 Active or passive immunization 662047426 Z23 [id number] Samantha Vallecillo NP [place] [address] 0 03/21/2025 09:21:29 03/21/2025 10:43:45 Type 2 diabetes mellitus 64901552 E11.22 N18.32 2323377303 Hyperlipidemia 30192449 E78.5 Hypertensive disorder 38 738182 I10 [id number] Samantha Vallecillo NP [place] [address] 0 04/18/2025 09:22:01 04/18/2025 10:38:04 Type 2 diabetes mellitus 28260103 E11.22 N18.32 [id number] [facility] 840898720 R42 99958 Hyperlipidemia 22066646 E78.5 Chronic ki dney disease 254584837 N18.9 [id number] Samantha Vallecillo NP [place] [address] 0 05/16/2025 12:32:57 05/16/2025 14:23:00 Type 2 diabetes mellitus 46147711 E11.22 N18.32 2238923076 Chronic low back pain 27 3941434 M54.42 G89.29 52485712 Urinary incontinence 165 197206 N39.498 [id number] Samantha Vallecillo NP [place] [phone] 05/30/2025 08:30:23 05/30/2025 09:42:32 Chronic kidney disease 089555921 N18.9 Chronic go uty arthritis 87583108 M1A.00X0 Hyperlipidemia 00236426 E78.5 Hypertensive disorder 38 619676 I10 Type 2 ekaterina betes mellitus 74142303 E11.22 N18.32 0137866242 [id number] Samantha Vallecillo NP [address] [address] 06/18/2025 12:52:59 06/18/2025 15:09:36 Thyroid nodule 765990569 E04.1 44791 Neck pain 31362029 M54.2 87069 Low blood pressure 66006 003 I95.9 95721410 Health Concerns Section Related Observation LastModified by Organization Detai ls LastModified Time None Recorded Concern Status LastModified by Organization Details LastModified Time None Recorded Advance Directives Directive None Recorded Payers Insurance Date Sequence Insurance Name Policy Number Policy Muhammad Covered Member ID Muhammad Member ID Guarantor Name 06/29/2025 [place] [employer] [facility] Addison Peguero [id number] Addison Adamee 06/29/2025 1 [place] Addison Peguero [id number] Addison Adamee 05/09/2025 1 [place] [employer] - [facility] Addison Adamee [id number] Addison Peguero 06/29/2025 2 [employer] (MEDICARE SUPPLEMENT) Addison Peguero [id number] Addison Peguero 05/08/2025 SLIDING FEE SCHEDULE - [...] had a fever or chills. Carolyn yeung [facility]. 03/22/2025 12:05:49 04/18/2025 text/html Patient presents for [...] well, still working on getting her into senior care. Samantha Vallecillo NP [address] [place], [address], [employer]. 04/21/2025 09:44:42 05/16/2025 text/html Patient presents for [...] not feel right. Samantha Vallecillo NP [address] [place], [address], [employer]. 05/16/2025 19:21:49 05/30/2025 text/html Patient presents as walk-in for follow up after ER visit. He went to ER on 05/23/2025. States that he had some abdominal pain and had to go to ER. States that he was diagnosed with too much gas. States that he has made dietary changes and that has helped with his abdominal discomfort.He was also seen at [facility] on 05/16 r/t back pain.He sometimes has difficulty swallowing with really dry foods.Follows up with urology on 08/28/2025.He states he is doing much better overall.He is tolerating his jardiance without issue. Samantha Vallecillo NP [address] [place], [address], [employer] 06/01/2025 16:37:12 06/18/2025 text/html Patient presents for follow up. He has had multiple ER visits in the last few months and is here to follow up after most recent ER visit 3 days ago. [facility] really bad. [...] but lives alone. His is in the custodial [facility]. He continues to struggle with incontinence since he had his last kidney stone surgery. He really thinks he would benefit from going into the senior care, but he is unsure if he wants to do that. He does have neck pain today on the left side and feels dizzy and weak. Samantha Vallecillo NP [address] [place], [address], [employer] 06/18/2025 15:41:35
[2025-08-20 08:26] LABS: Microscopic, Urine URINE MICROSCOPIC (MICROSCOPIC)
[2025-08-20 09:57] LABS: Bilirubin,Urine Negative (Negative); Color,Urine YELLOW (Yellow); Glucose,Urine (UA) Negative (Negative); Ketones,Urine Negative (Negative); Leukocyte Esterase,Urine Negative (Negative); PH,Urine 5.5 (5.0-8.5); Protein,Urine TRACE (Negative); Specific Gravity, Urine >= 1.030 (1.005-1.030); Urobilinogen,Urine 0.2 EU/dl (0.2)
[2025-08-20 11:21] LABS: Bacteria,Urine Trace /lpf; Squamous Epithelial Cell,Urine Occasional #/hpf (0-5); WBC,Urine Occasional #/hpf (0-3)
[2025-08-20 11:57] LABS: Hematocrit 41.7 % (42.0-52.0); Hemoglobin 13.5 g/dL (14.1-18.0); Immature Granulocytes % 0.2 %; Mean Corpuscular HGB Conc 32.4 g/dL (31.8-35.4); Mean Corpuscular Hemoglobin 30.5 pg (27.0-31.2); Mean Corpuscular Volume 94.3 fl (80-94); Nucleated Red Blood Cells % 0 %; Platelet Count 179 K/mm3 (142-424); Red Blood Count 4.42 M/mm3 (4.60-6.20); Red Cell Distribution Width-SD 46.9 fL; White Blood Count 4.0 K/mm3 (4.8-10.8)
== END 2025-08-20 23:59 | disposition home or self-care (01) ==
PROVIDERS: PCP Family Medicine; Visit Provider Family Medicine
DX: R30.0 Dysuria (principal)
CPT/HCPCS: 36415; 81001; 85025

== ENCOUNTER 2025-08-28 10:37 | Emergency (ER) | payer MEDICARE, OTHER, SELFPAY ==
[2025-08-28] VITALS (9 sets, daily range): BP systolic 160–183; BP diastolic 66–134; PULSE 79–96; RESP 16–20; TEMP 37.1; O2SAT 92–98; BMI 28.7
--- NOTE | 2025-08-28 10:38 | XR_ITS ---
FINAL REPORT CLINICAL HISTORY: fall FINDINGS: AP and lateral views of the left forearm are obtained. There is no prior exam for comparison. There is a lucency through the radial styloid process. Overlying IV tubing obscures the distal radius, fracture is not excluded. The remaining radius and ulna are intact. No joint effusion is identified. There is mild soft tissue edema of the distal forearm. IMPRESSION: Lucency through the radial styloid process, fracture is not excluded. Reviewed, Interpreted and Dictated by Daniela Benoit MD Transcribed by Elvie Culp Authenticated and [facility]
--- NOTE | 2025-08-28 10:38 | XR_ITS ---
FINAL REPORT CLINICAL HISTORY: fall FINDINGS: AP, lateral and oblique views of the left knee were obtained. There is no prior exam for comparison. There is no acute osseous abnormality of the left knee. There are changes from left knee arthroplasty. The hardware is intact. The bones are osteopenic. There is no joint effusion. IMPRESSION: No acute osseous abnormality of the left knee. Reviewed, Interpreted and Dictated by Daniela Benoit MD Transcribed by Elvie Culp Authenticated and [facility]
--- NOTE | 2025-08-28 10:39 | XR_ITS ---
FINAL REPORT CLINICAL HISTORY: fall FINDINGS: AP and frog leg views of the left hip were obtained. There is no acute fracture or dislocation. There are changes from left hip arthroplasty. The hardware is intact. There is degenerative joint disease of the right hip with chondrocalcinosis. IMPRESSION: No acute osseous abnormality of the left hip. Reviewed, Interpreted and Dictated by Daniela Benoit MD Transcribed by Elvie Culp [facility] and [facility]
--- NOTE | 2025-08-28 10:40 | XR_ITS ---
FINAL REPORT CLINICAL HISTORY: fall FINDINGS: Three views of the left shoulder were obtained. There is an impacted fracture of the humeral neck that extends to involve the greater tuberosity. There is no dislocation. Degenerative joint disease is identified. There is soft tissue edema. IMPRESSION: Impacted fracture of the humeral neck without dislocation. Reviewed, Interpreted and Dictated by Daniela Benoit MD Transcribed by Elvie Culp Authenticated and [facility]
--- NOTE | 2025-08-28 10:41 | CT_ITS ---
FINAL REPORT TECHNIQUE: Thin section axial images were obtained from skull base to vertex without contrast. Coronal reconstruction images were obtained from the axial data. Exam was performed using dose reduction techniques such as automated exposure control, adjustment of the mA and kV according to patient size, and use of iterative reconstruction technique. CLINICAL HISTORY: fall COMPARISON: None FINDINGS: There is atrophy. No mass effect or midline shift. No intracranial hemorrhage. No hydrocephalus. Periventricular low density is likely related to changes of chronic small vessel ischemia. The basilar cisterns are preserved. The posterior fossa is without acute abnormality. The soft tissues are without acute abnormality. No acute osseous abnormality is identified. IMPRESSION: No acute intracranial abnormality. Atrophy and changes suggesting chronic small vessel ischemia. Reviewed, Interpreted and Dictated by Daniela Benoit MD Transcribed by Lisha Zavala Authenticated and [facility]
--- NOTE | 2025-08-28 10:43 | CT_ITS ---
FINAL REPORT TECHNIQUE: Thin section axial images were obtained through the cervical spine without contrast. Multiplanar reconstruction images were obtained from the axial data. Exam was performed using dose reduction techniques. CLINICAL HISTORY: fall COMPARISON: None FINDINGS: There is no acute fracture or acute malalignment of the cervical spine. There is no evidence of unilateral or bilateral facet lock. Craniocervical junction is intact. Bony fusion of the C5 and C6 vertebral bodies. There is multilevel degenerative disc disease. No acute paraspinal abnormality is identified. IMPRESSION: No acute osseous abnormality of the cervical spine. Degenerative disc disease. Reviewed, Interpreted and Dictated by Daniela Benoit MD Transcribed by Lisha Zavala Authenticated and [facility]
--- NOTE | 2025-08-28 11:06 | XR_ITS ---
FINAL REPORT CLINICAL HISTORY: fall FINDINGS: Two views of the left femur were obtained. There is no fracture or dislocation. There are changes from left hip and left knee arthroplasty. The hardware is intact. No acute soft tissue abnormality is identified. IMPRESSION: No osseous abnormality of the left femur. Reviewed, Interpreted and Dictated by Daniela Benoit MD Transcribed by Elvie Culp Authenticated and [facility]
--- NOTE | 2025-08-28 11:06 | HMH.EDGENADL ---
Discharge Plan Disposition Patient Disposition: Xfer SNF Prescriptions Prescriptions: No Action acetaminophen 325 mg tablet 650 mg PO Q6H PRN docusate sodium 100 mg capsule 100 mg PO BID ondansetron 4 mg tablet,disintegrating 4 mg PO Q6H PRN famotidine 20 mg tablet 20 mg PO DAILY allopurinol 100 mg tablet 100 mg PO DAILY nystatin 100,000 unit/gram powder 1 applic topical TID polyethylene glycol 3350 [Miralax] 17 gram/dose powder 17 g PO DAILY hydrocortisone [Anti-Itch (HC)] 1 % cream 1 applic topical TID PRN pioglitazone 15 mg tablet 15 mg PO DAILY hydrocodone-acetaminophen 5-325 mg tablet 1 tab PO Q6H PRN (Reason: pain) Qty: 120 0RF diclofenac sodium 1 % gel 2 g topical BID Qty: 50 2RF Rx Instructions: apply to left shoulder glipizide 10 mg tablet extended release 24hr 10 mg PO DAILY tamsulosin 0.4 mg capsule 0.4 mg PO DAILY Referrals Follow up/Referrals: Samantha Vallecillo APRN [Primary Care Provider, Medical] - See instructions Activity Restrictions/Add. Instructions Additional Instructions/Restrictions: At this time it was felt you are safe to be discharged home. If new or worsening symptoms please do not hesitate to return the emergency department. You can bear weight as tolerated on your left lower extremity please keep your Velcro extension splint on at all times except for showering with assistance. Do not bend your knee until least 12 days and then you can see if sutures are ready to come out. Do not soak your knee but it is okay to shower. Your bone in your left upper arm is broken and should heal on its own over the course of 6 or so weeks. No need to follow-up with the bone doctor and less it does not heal after this or you have any complications at that point please talk to Dr. Rice and he can refer you. Please have physical therapy evaluate you at the retirement so you can continue to transfer safely as you will not be able to use a walker with your left arm. Clinical Impressions Clinical Impression: Closed fracture of left proximal humerus, Skin tear Print Language Print Language: Korean Discharge ED Provider: Sav Junior General Adult HPI <Sav Junior MD - Last Filed: 08/28/25 13:57> General Chief complaint: Fall Stated complaint: fall Time Seen by Provider: 08/28/25 11:00 Mode of Arrival: EMS Source of Information: Patient and EMS Description of Symptoms (Recalled from ER Triage Doc. by RN): pt fell in the dining room of the facility he lives at. skin tear to left knee and left elbow. no blood thinners that were reported. he is alert to self and place. History of Present Illness HPI narrative: Patient is 75-year-old male who presents emergency department for evaluation traumatic injury sustained in a fall. Patient was reportedly taking his pants off and threw his walker at the nurses resulting in a ground-level fall onto his left knee and left shoulder. No loss of consciousness reported patient did reportedly hit his head. No anticoagulants or bleeding diathesis. Patient is complaining of left knee pain and left shoulder pain. No other acute complaints at this time. Please note that above description of symptoms, in this electronic medical record under categorization of recalled from ER triage doctor by RN are reflective of an initial nursing assessment, however, is not reflective of my full history and physical exam that was personally taken and clarified. Consequentially, this preceding description of symptoms, which may include the patient's categorized chief complaint in the EMR, do not reflect my personal clinical impression, and the ultimate description of history of present illness and patient stated complaints should be deferred to this section of the note. Unless stated otherwise or congruent with this section of the note, additional signs, symptoms, or incongruence should be interpreted as inaccurate with my clinical impression. Related Data Home Medications ?Medication ?Instructions ?Recorded ?Confirmed glipizide 10 mg tablet, extended 10 mg PO DAILY 07/25/25 08/20/25 release 24 hr tamsulosin 0.4 mg capsule 0.4 mg PO DAILY 07/25/25 08/20/25 hydrocortisone 1 % topical cream 1 applic topical TID PRN 07/26/25 08/20/25 (Anti-Itch (hydrocortisone)) nystatin 100,000 unit/gram topical 1 applic topical TID 07/26/25 08/20/25 powder pioglitazone 15 mg tablet 15 mg PO DAILY 07/26/25 08/20/25 polyethylene glycol 3350 17 17 g PO DAILY 07/26/25 08/20/25 gram/dose oral powder (Miralax) acetaminophen 325 mg tablet 650 mg PO Q6H PRN 08/04/25 08/20/25 allopurinol 100 mg tablet 100 mg PO DAILY 08/04/25 08/20/25 docusate sodium 100 mg capsule 100 mg PO BID 08/04/25 08/20/25 famotidine 20 mg tablet 20 mg PO DAILY 08/04/25 08/20/25 ondansetron 4 mg disintegrating 4 mg PO Q6H PRN 08/04/25 08/20/25 tablet Previous Rx's ?Medication ?Instructions ?Recorded diclofenac sodium 1 % topical gel 2 g topical BID #50 grams 07/26/25 hydrocodone 5 mg-acetaminophen 325 1 tab PO Q6H PRN pain #120 tabs 07/26/25 mg tablet Allergies Allergy/AdvReac Type Severity Reaction Status Date / Time No Known Drug Allergies Allergy Verified 08/20/25 22:33 [facility] <Sav Junior MD - Last Filed: 08/28/25 13:57> [facility] Disclaimer: The information contained in this section may have been updated after the patient was seen, as this information can be updated by other users. Medical History (Updated 08/28/25 @ 13:54 by Sav Junior MD) Dysphagia Otitis media Hyperuricemia Impingement of left shoulder Left shoulder pain Cervical spine disease Back pain Acute kidney injury superimposed on chronic kidney disease Chronic kidney disease Former cigarette smoker Obstructive sleep apnea Unsteadiness on feet Benign prostatic hyperplasia without lower urinary tract symptoms Muscle weakness (generalized) Primary generalized (osteo)arthritis Functional dyspepsia Gastro-esophageal reflux disease without esophagitis Essential (primary) hypertension Mild obstructive sleep apnea Hypo-osmolality and hyponatremia Dysphagia, pharyngoesophageal phase Atypical syncope Hypertension Diabetes mellitus Surgical History H/O lithotripsy History of shoulder surgery History of appendectomy History of total hip replacement Social History Smoking Status: Never smoker alcohol intake: never current occupational status: retired Travel in the last 8 weeks?: None housing: retirement marital status: Have you lived/traveled outside US in past 30 days?: No Contact w/someone who lives/traveled outside US past 30 days?: No Exposure to someone with infectious disease in past 14 days?: No Do you have a fever (greater than 100.4 F or 38 C)?: No Have you tested positive for COVID-19?: No Exposed to someone with COVID-19 in past 14 days?: No Do you have a sore throat?: No Do you have a cough?: No Do you have any weakness?: No Do you have any diarrhea?: No Are you experiencing any unusual bleeding?: No Do you have any muscle aches/pain?: No Do you have any abdominal pain?: No Are you experiencing loss of taste or smell?: No Other Medical History Have you received the Flu Vaccine for this season: Yes Have you received the Pneumonia Vaccine: Yes (08/2018,06/26/25) <Sav Junior MD - Last Filed: 08/28/25 13:57> ROS Obtained: Yes Systems reviewed as appropriate & no additional complaints except as documented Physical Exam <Sav Junior MD - Last Filed: 08/28/25 13:57> General General appearance: alert and in no apparent distress Head Head exam: atraumatic and normocephalic Eye Eye exam: Present PERRL and EOMI ENT ENT exam: Present mucous membranes moist Neck Neck exam: Present normal inspection Chest Chest inspection: Present normal inspection and symmetric chest wall rise Respiratory Respiratory exam: Present normal lung sounds bilaterally; Absent respiratory distress Cardiovascular Cardiovascular exam: Present regular rate and normal rhythm Abdominal Exam Abdominal exam: Present soft; Absent tenderness Extremities Exam Extremities exam: Present other (Wound over the left knee, tenderness over the left knee, left shoulder. No tenderness over the remainder of the extremities, chest wall, back.) Neurological Exam Neurological exam: Present alert and CN II-XII intact Psychiatric Psychiatric exam: Present normal affect Skin Skin exam: Present warm and dry Medical Decision Making <Sav Junior MD - Last Filed: 08/28/25 13:57> Medical Records Screening: Per USPSTF and CDC recommendations, given the prevalence of disease in our region, it is our hospital?s policy to screen for HIV and viral Hepatitis for all patients aged 18 and over and those with ongoing risk factors. [place] Inquiry Pt receiving controlled substance: No Vital Signs: 08/28/25 10:30 08/28/25 10:32 08/28/25 11:00 Temperature 98.7 F Temperature Source Oral Pulse Rate 90 Pulse Rate [Right] 86 Respiratory Rate 20 16 Blood Pressure 178/104 H Blood Pressure [Right Arm] 167/109 H Blood Pressure Mean [Right Arm] 128 02 Sat by Pulse Oximetry 92 L 97 97 Oxygen Delivery Method Room Air Fraction of Inspired Oxygen 100 08/28/25 11:29 08/28/25 12:00 08/28/25 12:30 Temperature Temperature Source Pulse Rate 88 96 H 79 Pulse Rate [Right] Respiratory Rate Blood Pressure 183/134 H 160/66 H 173/104 H Blood Pressure [Right Arm] Blood Pressure Mean [Right Arm] 02 Sat by Pulse Oximetry 96 97 98 Oxygen Delivery Method Fraction of Inspired Oxygen 08/28/25 13:00 Temperature Temperature Source Pulse Rate 86 Pulse Rate [Right] Respiratory Rate Blood Pressure 165/108 H Blood Pressure [Right Arm] Blood Pressure Mean [Right Arm] 02 Sat by Pulse Oximetry 98 Oxygen Delivery Method Fraction of Inspired Oxygen Orders (Tests/Meds): ED MEDICATIONS Discontinued Medications Generic Name Dose Route Start Last Admin Trade Name Freq PRN Reason Stop Dose Admin Acetaminophen 1,000 mg 08/28/25 11:09 08/28/25 11:29 Acetaminophen 500mg Tab PO 08/28/25 11:10 1,000 mg ONCE ONE Administration Methocarbamol 500 mg 08/28/25 11:11 08/28/25 11:28 Methocarbamol 500mg Tablet PO 08/28/25 11:12 500 mg ONCE ONE Administration ORDERS Category Date Time Status CT cervical spine wo con Stat Cat Scan 08/28/25 10:[address] head/brain wo con Stat Cat Scan 08/28/25 10:41 Completed Femur XR left 2 views [XR femur LT 2V] Stat Exams 08/28/25 11:06 Completed Forearm XR left 2 views [XR forearm LT 2V] Stat Exams 08/28/25 10:38 Completed Hip XR left minimum 2 views [XR hip LT 2-3V w/pelvis] Exams 08/28/25 10:39 Completed Stat Humerus XR left [XR humerus LT] Stat Exams 08/28/25 11:11 Completed Shoulder XR left minimum 2 views [XR shoulder LT min 2V Exams 08/28/25 10:40 Completed ] Stat XR knee LT 3V Stat Exams 08/28/25 10:38 Completed Medical Decision Narrative: In summary patient is a 75-year-old male with past medical history described above presents emergency department for evaluation traumatic injury sustained in a ground-level fall. Patient is hemodynamically stable nontoxic-appearing upon arrival, afebrile. C-collar in place. Based on history and physical exam c-collar will be maintained workup in totality will be conducted with noncontrasted CT scan of the head and cervical spine plain films of the left shoulder, left hip left femur left knee and left forearm. Initial inventions include Tylenol and methocarbamol. X-rays informally interpreted by me, left-sided proximal humerus fracture no other acute traumatic pathology. Skin flap laceration repaired by Raymond Chan at bedside with good approximation. Velcro extension brace in place patient is already on daily aspirin. OT evaluated the patient he will benefit from therapy in the retirement he is in but does not need any acute admission at this time. Cuff and collar placed for left upper extremity. C-spine cleared clinically CT head and cervical spine nonactionable. Patient is appropriate for outpatient management at this time, follow-up with orthopedics. 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 Electronic final cigar and box examiner of the spoken language may permit errors. Although I have reviewed the note, some errors may still exist. <CALDERON Stewart - Last Filed: 08/28/25 13:20> Vital Signs: 08/28/25 10:30 08/28/25 10:32 08/28/25 11:00 Temperature 98.7 F Temperature Source Oral Pulse Rate 90 Pulse Rate [Right] 86 Respiratory Rate 20 16 Blood Pressure 178/104 H Blood Pressure [Right Arm] 167/109 H Blood Pressure Mean [Right Arm] 128 02 Sat by Pulse Oximetry 92 L 97 97 Oxygen Delivery Method Room Air Fraction of Inspired Oxygen 100 08/28/25 11:29 08/28/25 12:00 08/28/25 12:30 Temperature Temperature Source Pulse Rate 88 96 H 79 Pulse Rate [Right] Respiratory Rate Blood Pressure 183/134 H 160/66 H 173/104 H Blood Pressure [Right Arm] Blood Pressure Mean [Right Arm] 02 Sat by Pulse Oximetry 96 97 98 Oxygen Delivery Method Fraction of Inspired Oxygen 08/28/25 13:00 Temperature Temperature Source Pulse Rate 86 Pulse Rate [Right] Respiratory Rate Blood Pressure 165/108 H Blood Pressure [Right Arm] Blood Pressure Mean [Right Arm] 02 Sat by Pulse Oximetry 98 Oxygen Delivery Method Fraction of Inspired Oxygen Orders (Tests/Meds): ED MEDICATIONS Discontinued Medications Generic Name Dose Route Start Last Admin Trade Name Alile PRN Reason Stop Dose Admin Acetaminophen 1,000 mg 08/28/25 11:09 08/28/25 11:29 Acetaminophen 500mg Tab PO 08/28/25 11:10 1,000 mg ONCE ONE Administration Methocarbamol 500 mg 08/28/25 11:11 08/28/25 11:28 Methocarbamol 500mg Tablet PO 08/28/25 11:12 500 mg ONCE ONE Administration ORDERS Category Date Time Status CT cervical spine wo con Stat Cat Scan 08/28/25 10:[address] head/brain wo con Stat Cat Scan 08/28/25 10:41 Completed Femur XR left 2 views [XR femur LT 2V] Stat Exams 08/28/25 11:06 Completed Forearm XR left 2 views [XR forearm LT 2V] Stat Exams 08/28/25 10:38 Completed Hip XR left minimum 2 views [XR hip LT 2-3V w/pelvis] Exams 08/28/25 10:39 Completed Stat Humerus XR left [XR humerus LT] Stat Exams 08/28/25 11:11 Completed Shoulder XR left minimum 2 views [XR shoulder LT min 2V Exams 08/28/25 10:40 Completed ] Stat XR knee LT 3V Stat Exams 08/28/25 10:38 Completed Procedures <CALDERON Stewart - Last Filed: 08/28/25 13:20> Laceration Laceration 1: Site: lower extremity Side (If applicable): left Size (cm): 9 Description: flap Depth: involves subcutaneous layer Local Anesthetic: lidocaine 1% and with epi Amount of anesthesia used (mL): 4 Pre-repair: wound explored, irrigated extensively and deep structures intact Skin layer closed with: nylon Size (cm): 4-0 Number of sutures: 11 Technique: simple, interrupted and other Critical Care <CALDERON Stewart - Last Filed: 08/28/25 13:20> Critical Care Time Critical Care Time: No
--- NOTE | 2025-08-28 11:11 | XR_ITS ---
FINAL REPORT CLINICAL HISTORY: proximal pain fall FINDINGS: Two views of the left humerus were obtained. Humeral neck fracture is visualized. The remaining humerus is intact. There is soft tissue edema of the proximal forearm. IMPRESSION: Humeral neck fracture. Reviewed, Interpreted and Dictated by Daniela Benoit MD Transcribed by Elvie Culp Authenticated and [facility]
[2025-08-28] MEDS: METHOCARBAMOL 500MG TABLET 500 MG PO (11:28)
[2025-08-28] MEDS: ACETAMINOPHEN 500MG TAB 1000 MG PO (11:29)
--- NOTE | 2025-08-28 12:34 | PC.NURSE ---
Called and spoke with Abigail at PT department. She states everyone is at lunch at the moment but she will leave a note for therapist, Shalini and let her know patient is in the ER and needs evaluation.
--- NOTE | 2025-08-28 13:18 | PC.NURSE ---
Called and spoke with PT department again. Advised they had given note to therapist and that they would remind them that pt needs eval.
--- NOTE | 2025-08-28 13:45 | PC.NURSE ---
OT here in ER to evaluate patient.
--- NOTE | 2025-08-28 13:57 | PC.NURSE ---
report called to Nadja @ [facility]
--- NOTE | 2025-08-28 13:58 | HMH.OTEV ---
OT Evaluation Rehab OT IP Evaluation Start: 08/28/25 13:49 Freq: ONCE Status: Active Protocol: Document 08/28/25 13:50 [facility] (Rec: 08/28/25 13:[id number] Rehab OT IP Assessment Subjective History Pt oriented to self upon evaluation. Pt came to [facility] ER today (08/28/25) following a fall at shelter resulting in a L humerus fx and traumatic laceration to left knee. History and physical: Patient is 75-year-old male who presents emergency department for evaluation traumatic injury sustained in a fall. Patient was reportedly taking his pants off and threw his walker at the nurses resulting in a ground-level fall onto his left knee and left shoulder. No loss of consciousness reported patient did reportedly hit his head. No anticoagulants or bleeding diathesis. Patient is complaining of left knee pain and left shoulder pain. No other acute complaints at this time. Subjective Family at bedside during evaluation. Family reports normally pt is independent with functional transfers using rolling walker. However he does require assistance with bathing and dressing due to intermittent confusion and difficulty with sequencing of tasks. Pt is also dependent upon family and shelter staff for completion of all IADLs. Therapist instructed patient on bed mobility to go from supine to sitting at eob. Mod/max assist x 2 provided with bed mobility and max verbal cues and re-education for appropriate hand and feet placement to assist self into sitting. Once at eob, pt able to maintain static sitting balance with cga. Therapist then instructed patient on sit to stand from eob with min assist x2 keeping L knee straight and non weightbearing through LUE. Mod/max assist x 2 required to go from eob to supine. Pt was left with call wan and all other needs in reach. Objective Patient Orientation Person Right Upper WFL Extremity Gross ROM Left Upper Extremity Sev Limitation >75% Gross ROM Shoulder ROM Pain Limitations Elbow ROM Pain Limitations Wrist Limitations of Pain Range of Motion Bed Mobility bed mobility-scooting,bed mobility - supine/sit Assist Level Maximum x 1 (75% assist) Transfer Training Sit/Stand Transfer Assist Level Minimal x 2 (25% assist) Rehab OT IP prob,goals,plan Problems Date of Evaluation: 08/28/25 Rehab Potential Rehab Potential Innapropriate for Skilled Therapy Discharge Plan OT Discharge Plan At this time, pt can return to shelter for continued care and assistance of all ADLs and IADLs. Upon returning to shelter, therapist does recommend a PT and OT evaluation at SNF for continued skilled therapy services. It is important to continue with therapy services in order to improve strength, safety, endurance, ADL independence, and functional transfers in order to reach PLOF. Eval Complexity Eval Charge Codes 59973 - Moderate Complexity PHYSICIAN CERTIFICATION: I certify the specified therapy services for Addison Peguero are required, authorized, and reviewed every 30 days.
[2025-08-28] MEDS: TET/DIPHTH/PERT-ADULT 0.5ML SYRINGE 0.5 ML IM (14:03)
--- NOTE | 2025-08-29 13:35 | PC.NURSE ---
Pts daughter called inquiring on the proper application of a cuff and collar sling
== END 2025-08-28 14:25 ==
PROVIDERS: Emergency Provider Emergency Medicine; PCP Nurse Practitioner Family
DX: S81.812A Laceration without foreign body, left lower leg, initial encounter (principal); S42.212A Unspecified displaced fracture of surgical neck of left humerus, initial encounter for closed fracture; W18.30XA Fall on same level, unspecified, initial encounter
CPT/HCPCS: 12004; 70450; 72125; 73030; 73060; 73090; 73502; 73552; 73562; 90471; 90715; 99285; J2004

== ENCOUNTER 2025-08-31 13:54 | Inpatient (IN) | payer MEDICARE, OTHER, SELFPAY ==
--- OUTSIDE RECORDS SUMMARY | 2025-03-27 09:30 | XMS_ITS ---
Author Organization [facility] [place] Address [address] [place] [address] Care Team Providers Care Drafter Structural Name Role Phone FRANK MATIAS Unavailable [phone] REASON FOR VISIT REF BY CANELO LEWIS FOR CKD Encounters Encounter Location Date Provider Diagnosis [facility] [place] [address] [place] [address] 03/27/2025 FRANK MATIAS Plan Of Treatment No Information Progress Notes * EKATERINA CISNEROSDOB:1950 ( 75 yo M)Acc No.[id number]:03/27/2025 Progress Notes Patient: EKATERINA AMBROCIO Provider: Med MATIAS M.D., F.A.C.P. :1950 A ge:74 Y S ex:Male Date:03/27/2025 Address:[address] [place], [place] [phone] Subjective: * Chief Complaints: * 1 . REF BY CANELO LEWIS FOR CKD. * Medical History: Objective: * Vitals: Assessment: Plan: * Treatment: * * Electronic signature of DOROTHEA MATIAS MD on 08/31/2025 at 02:06 PM EDT Sign off status: Pending * Provider: Med MATIAS M.D., F.A.C.P. Date: 0 03/27/2025 Generated for Chay shi/Minerva/eTbettysmitting on: 1 02:06 PM EDT
--- OUTSIDE RECORDS SUMMARY | 2025-07-28 13:55 | XMS_ITS | Encounter Summary ---
Author Organization [facility] Address [address] [place] [address] Care Team Providers Care Contract Post Office Clerk Name Role Phone Samantha Vallecillo AISHA Primary Care Provider [phone] Reason for Visit * Cardiac (Routine) - Closed Specialty Diagnoses / Procedures Referred By Светлана t Referred To Contact Diagnoses Precordial chest pain Palpitations Procedures Holter Monitor - 72 Hour Up To 15 Days Melanie Scott MD [address] [place] [address] Phone: tel: fax: [facility] [address] [place] [place] [address] Phone: tel: fax: Referral ID Status Reason Start Date Expiration Date Visits Re quested Visits Authorized [id number] Closed 07/28/2025 10/27/2026 1 1 Encounter Details Date Type Department Care Team (Latest Contact Info) Description 07/28/2025 1:55 PM EDT Ancillary Procedure [facility] [place] [address] Precordial chest pain; Palpitations Social History Tobacco Use Types Packs/Day Years [...] as of this encounter Plan of Treatment Pending Results Name Type Priority Associated Diagnoses Date /Time Holter Monitor - 72 Hour Up To 15 Days Cardiac Services Routine Precordial chest pain Palpitations 07/28/2025 2:20 PM EDT documented as of this encounter Visit Diagnoses Diagnosis Precordial chest pain Precordial pain Palpitations documented in this encounter Care Teams Contract Post Office Clerk Relationship Specialty Start Date End Date Samantha Vallecillo APRN [address] [place] [address] PCP - General Family Medicine 06/19/25 documented as of this encounter
--- OUTSIDE RECORDS SUMMARY | 2025-07-30 05:00 | XMS_ITS | Encounter Summary ---
Author Organization [facility] Address [address] [place] [address] Care Team Providers Care Pourer Buggy Ladle Name Role Phone Samantha Vallecillo APRN Primary Care Provider [phone] Encounter Details Date Type Department Care Team (Late st Contact Info) Description 07/30/2025 5:00 AM EDT Outside Facility Service [facility] [address] [place] [address] Melanie Scott MD [address] [place], [place] [id number] Social History Tobacco Use Types Packs/Day Years [...] on file documented as of this encounter Visit Diagnoses Not on filedocumented in this encounter Care Teams Pourer Buggy Ladle Relationship Specialty Start Date End Date Samantha Vallecillo APRN [address] [place] [phone] PCP - General Family Medicine 06/19/25 documented as of this encounter
[2025-08-31] VITALS (11 sets, daily range): BP systolic 131–172; BP diastolic 81–110; PULSE 109–143; RESP 9–24; TEMP 36.8–36.9; O2SAT 90–95; BMI 25.8; BMI 26.3
--- NOTE | 2025-08-31 14:01 | ECG_ITS ---
APPROVED REPORT Exam: Resting ECG HR:112 bpm ECG Measurements Heart Rate 112 AXES SD 149 P 16 QRSd 136 QRS 104 QT 362 T 19 QTc 428 Conclusion Sinus tachycardia without acute ST or T wave changes concerning for ischemia Electronically signed by : Mirna Sagastume, 09/01/2025 00:56:39
--- NOTE | 2025-08-31 14:04 | XR_ITS ---
PROCEDURE INFORMATION: Exam: XR Chest Exam date and time: 08/31/2025 2:20 PM Age: 75 years old Clinical indication: Shortness of breath; Additional info: Cp SOA TECHNIQUE: Imaging protocol: Radiologic exam of the chest. Views: 1 view. Total images: 1 COMPARISON: CR XR CHEST PORTABLE 05/16/2025 6:11 PM FINDINGS: Lungs: No consolidation. Pleural spaces: No pleural effusion. No pneumothorax. Heart/Mediastinum: Heart demonstrates mild diffuse enlargement. Bones/joints: Unremarkable. IMPRESSION: 1. Mild cardiomegaly. 2. No acute cardiopulmonary abnormalities, as imaged.
--- NOTE | 2025-08-31 14:06 | CT_ITS ---
PROCEDURE INFORMATION: Exam: CT Head Without Contrast Exam date and time: 08/31/2025 3:06 PM Age: 75 years old Clinical indication: Altered mental status/memory loss; Additional info: AMS TECHNIQUE: Imaging protocol: Computed tomography of the head without contrast. Radiation optimization: All CT scans at this facility use at least one of these dose optimization techniques: automated exposure control; mA and/or kV adjustment per patient size (includes targeted exams where dose is matched to clinical indication); or iterative reconstruction. COMPARISON: CT HEAD/BRAIN WO CON 08/28/2025 11:43 AM FINDINGS: Brain: There is mild small vessel disease. There is disproportionate temporal lobe atrophy. There is no evidence of acute parenchymal hemorrhage, extra-axial collection, or acute infarction. There is no mass effect, midline shift, or downward herniation. Cerebral ventricles: No ventriculomegaly. Paranasal sinuses: Visualized sinuses are unremarkable. No fluid levels. Mastoid air cells: Visualized mastoid air cells are well aerated. Bones: Unremarkable. No acute fracture. Soft tissues: Unremarkable. IMPRESSION: 1. No evidence of acute intracranial process. 2. Mild small-vessel disease. 3. Disproportionate temporal lobe atrophy.
--- OUTSIDE RECORDS SUMMARY | 2025-08-31 14:06 | XMS_ITS | Encounter Summary ---
Author Organization [facility] ([place], [place], [place], [place]) Address [address] [place] [address] Care Team Providers Care Ear Specialist Name Role Phone AvelSamantha brantley Yennifer PLATA Primary Care Provider [phone] Reason for Referral * Diagnostic X-Ray (Emergency) - Closed Specialty Diagnoses / Procedures Referred By Contac t Referred To Contact Radiology Diagnoses Calculus of kidney Procedures X-ray abdomen KUB 1 view Derek Madrigal MD [address] [place] [address] [place] [address] Phone: tel: fax: [facility] [address] [place] [address] [address] [place] [phone] Phone: tel: fax: Referral ID Status Reason Start Date Expiration Date Visits Re quested Visits Authorized [id number] Closed 05/05/2025 05/05/2026 1 1 Encounter Details Date Type Department Care Team (Late st Contact Info) Description 05/05/2025 Outside Orders [facility] [address] [place] [address] [address] [place] [phone] Derek Madrigal MD [address] [place] [address] [address] [place] [phone] Calculus of kidney (Primary Dx) Social History Tobacco Use Types Packs/Day Years Used Date Smoking Tobacco: Never Assessed Sex and Gender Information Value Date Recorded Sex Assigned at Not on file Legal 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
--- OUTSIDE RECORDS SUMMARY | 2025-08-31 14:06 | XMS_ITS | Data Portability ---
Author Organization [facility] [place] & CHAPO Esparza ADMIN Address [address] [place] [id number] Care Team Providers Care [employer] Name Role Phone MATTHEW ROBERTS Primary Care Provider [phone] Assessment Encounter Date Assessment Date Assessment LastModified [...] average glucose, QN, blood 2023 024 [email or web address] [facility] (Laboratory), [address] [place], [address], 09:45:52 CBC w/ auto diff 2023 024 [facility] (Laboratory), [address] [place], [address], 4 13:38:29 lipid panel, serum 2023 024 [facility] (Laboratory), [address] [place], [address], 4 13:47:38 CMP, serum or plasma 2023 024 [facility] (Laboratory), [address] [place], [address], 4 13:46:33 CMP, serum or plasma 2023 024 [facility] (Laboratory), [address] [place], [address], 4 14:18:35 CBC w/ auto diff 2023 024 [facility] (Laboratory), [address] [place], [address], 4 13:21:00 hemoglobin A1c + average glucose, QN, blood 2023 024 [facility] (Laboratory), [address] [place], [address], 4 08:07:57 TSH, serum or plasma 2023 024 [facility] (Laboratory), [address] [place], [address], 4 14:18:33 lipid panel, serum 2023 024 [facility] (Laboratory), [address] [place], [address], 4 14:18:37 CMP, serum or plasma 2022 023 [facility] (Laboratory), [address] [place], [address], 3 12:08:17 CBC w/ auto diff 2022 023 [facility] (Laboratory), [address] [place], [address], 3 10:52:20 hemoglobin A1c + average glucose, QN, [facility] [address] [place], [address], 3 08:09:25 lipid panel, serum 2022 023 [facility] (Laboratory), [address] [place], [address], 3 12:08:19 Referral None recorded. Procedures None recorded. Surgeries None recorded. Imaging None recorded. Medication Orders allopurinol 100 mg tablet 2023 024 [facility], [address] [place] [address], [address], 4 16:10:09 glipizide ER 10 mg tablet, extended release 24 hr 2023 024 [facility], [place], [address], 4 10:58:15 pioglitazon e 15 mg tablet 2023 024 [facility], [place], [address], 4 10:58:17 famotidine 20 mg tablet 2023 024 [facility], [place], [address], 4 16:10:06 aspirin 81 mg tablet,reggie yed release 2023 024 [facility], [place], [address], 4 10:58:11 lisinopril 20 mg-hydrochl orothiazide 12.5 mg tablet 2023 024 [facility], [address] [place] [address], [place], [address], 4 16:10:10 tamsulosin 0.4 mg capsule 2023 [facility], [address] [place], [address], 16:10:12 allopurinol 100 mg tablet 2023 [facility], [address] [place] [address], [address], 4 11:25:37 glipizide ER 10 mg tablet, extended release 24 hr 2023 [facility], [address] [place] [address], [address], 4 11:25:36 famotidine 20 mg tablet 2023 [facility], [address] [place] [address], [address], 4 11:25:36 lisinopril 20 mg-hydrochl orothiazide 12.5 mg tablet 2023 024 [facility], [address] [place] [address], [address], 4 11:25:34 tamsulosin 0.4 mg capsule 2023 024 [facility], [address] [place] [address], [address], 4 11:25:35 Patient TargetsNo targets recorded. Patient InstructionsNo instructions recorded. Reason for Referral None Reported. Results Created Date Observation Date Name Description Value Unit Range Abnormal Flag Note LastModifiedBy Organization Detail LastModifiedTime 10/23/20 23 10/23/2023 CBC AUTO W DIFF WBC 6.2 10 4.5-11 .5 Not Available [facility] (Lab Registration) [address], [place], [address], 10/23/2023 10:52:20 10/23/20 23 10/23/2023 CBC AUTO W DIFF RBC 4.07 10 4.25-5 .57 low Not Available [facility] (Lab Registration) [address] [place], [address], 10/23/2023 10:52:20 10/23/20 23 10/23/2023 CBC AUTO W DIFF HGB 12.7 g/dL 13.5-1 7.2 low Not Available [facility] (Lab Registration) [address] [place], [address], 10/23/2023 10:52:20 10/23/20 23 10/23/2023 CBC AUTO W DIFF HCT 39.2 % 42.0-5 2.0 low Not Available [facility] (Lab Registration) [address] [place], [address], 10/23/2023 10:52:20 10/23/20 23 10/23/2023 CBC AUTO W DIFF MCV 96.3 fL 80-95 high Not Available [facility] (Lab Registration) [address] [place], [address], 10/23/2023 10:52:20 10/23/20 23 10/23/2023 CBC AUTO W DIFF MCH 31.2 pg 27.0-3 4.0 Not Available [facility] (Lab Registration) [address] [place], [address], 10/23/2023 10:52:20 10/23/20 23 10/23/2023 CBC AUTO W DIFF MCHC 32.4 g/dL 32.0-3 6.0 Not Available [facility] (Lab Registration) [address] [place], [address], 10/23/2023 10:52:20 10/23/20 23 10/23/2023 CBC AUTO W DIFF platelet count 251 10 150-45 0 Not Available [facility] (Lab Registration) [address], [place], [address], 10/23/2023 10:52:20 10/23/20 23 10/23/2023 CBC AUTO W DIFF RDW 13.4 % 12.3-1 5.1 Not Available [facility] (Lab Registration) [address] [place], [address], 10/23/2023 10:52:20 10/23/20 23 10/23/2023 CBC AUTO W DIFF MPV 10.5 fL 7.4-10 .4 high Not Available [facility] (Lab Registration) [address], [place], [address], 10/23/2023 10:52:20 10/23/20 23 10/23/2023 CBC AUTO W DIFF granulocyte% 66.2 % 40-75 Not Available [facility] (Lab Registration) [address] [place], [address], 10/23/2023 10:52:20 10/23/20 23 10/23/2023 CBC AUTO W DIFF lymphocyte% 23.5 % 15-57 Not Available [facility] (Lab Registration) [address] [place], [address], 10/23/2023 10:52:20 10/23/20 23 10/23/2023 CBC AUTO W DIFF monocyte% 6.4 % 4.0-12 .0 Not Available [facility] (Lab Registration) [address] [place], [address], 10/23/2023 10:52:20 10/23/20 23 10/23/2023 CBC AUTO W DIFF eosinophil% 3.2 % 0.0-4. 0 Not Available [facility] (Lab Registration) [address] [place], [address], 10/23/2023 10:52:20 10/23/20 23 10/23/2023 CBC AUTO W DIFF basophil% 0.5 % 0.0-1. 0 Not Available [facility] (Lab Registration) [address] [place], [address], 10/23/2023 10:52:20 10/23/20 23 10/23/2023 CBC AUTO W DIFF immature granulocytes % 0.2 % 0.0-0. 8 Not Available [facility] (Lab Registration) [address] [place], [address], 10/23/2023 10:52:20 10/23/20 23 10/23/2023 CBC AUTO W DIFF granulocyte# 4.12 10 Not Available [facility] (Lab Registration) [address] [place], [address], 10/23/2023 10:52:20 10/23/20 23 10/23/2023 CBC AUTO W DIFF lymphocyte# 1.46 10 Not Available [facility] (Lab Registration) [address] [place], [address], 10/23/2023 10:52:20 10/23/20 23 10/23/2023 CBC AUTO W DIFF monocyte# 0.40 10 Not Available [facility] (Lab Registration) [address] [place], [address], 10/23/2023 10:52:20 10/23/20 23 10/23/2023 CBC AUTO W DIFF eosinophil# 0.20 10 Not Available [facility] (Lab Registration) [address] [place], [address], 10/23/2023 10:52:20 10/23/20 23 10/23/2023 CBC AUTO W DIFF basophil# 0.03 10 Not Available [facility] (Lab Registration) [address] [place], [address], 10/23/2023 10:52:20 10/23/20 23 10/23/2023 CBC AUTO W DIFF immature granulocytes # 0.01 10 Not Available [facility] (Lab Registration) [address] [place], [address], 10/23/2023 10:52:20 10/23/20 23 10/23/2023 CBC AUTO W DIFF manual differential NO Not Available [facility] (Lab Registration) [address] [place], [address], 10/23/2023 10:52:20 10/23/20 23 10/23/2023 CBC AUTO W DIFF note Unles s other bowles noted testi ng perfo rmed at: [facility] [address] [place] [address] [phone] Wesley anaya MD CLIA: [id number] Not Available [facility] (Lab Registration) [address], [place], [address], 10/23/2023 10:52:20 10/23/20 23 10/23/2023 COMP METAB OLIC PANEL sodium 139 mmol/ L 136-14 5 Not Available [facility] (Lab Registration) [address], [place], [address], 10/23/2023 12:08:17 10/23/20 23 10/23/2023 COMP METAB OLIC PANEL potassium 4.8 mmol/ L 3.5-5. 1 Not Available [facility] (Lab Registration) [address] [place], [address], 10/23/2023 12:08:17 10/23/20 23 10/23/2023 COMP METAB OLIC PANEL chloride 104 mmol/ L 98-107 Not Available [facility] (Lab Registration) [address] [place], [address], 10/23/2023 12:08:17 10/23/20 23 10/23/2023 COMP METAB OLIC PANEL carbon dioxide 26 mmol/ L 21-32 Not Available [facility] (Lab Registration) [address] [place], [address], 10/23/2023 12:08:17 10/23/20 23 10/23/2023 COMP METAB OLIC PANEL anion gap 9.0 Not Available [facility] (Lab Registration) [address] [place], [address], 10/23/2023 12:08:17 10/23/20 23 10/23/2023 COMP METAB OLIC PANEL glucose 251 mg/dL 70-110 high Not Available [facility] (Lab Registration) [address] [place], [address], 10/23/2023 12:08:17 10/23/20 23 10/23/2023 COMP METAB OLIC PANEL blood urea nitrogen 33 mg/dL 7-18 high Not Available [facility] (Lab Registration) [address] [place], [address], 10/23/2023 12:08:17 10/23/20 23 10/23/2023 COMP METAB OLIC PANEL creatinine 1.9 mg/dL 0.8-1. 3 high Not Available [facility] (Lab Registration) [address] [place], [address], 10/23/2023 12:08:17 10/23/20 23 10/23/2023 COMP METAB OLIC PANEL BUN/creatini ne ratio 17.4 ratio 9-21 Not Available [facility] (Lab Registration) [address] [place], [address], 10/23/2023 12:08:17 10/23/20 23 10/23/2023 COMP METAB OLIC PANEL estimated glom filtration rate 37 mL/mi n >60- low Not Available [facility] (Lab Registration) [address] [place], [address], 10/23/2023 12:08:17 10/23/20 23 10/23/2023 COMP METAB OLIC PANEL total protein 6.9 g/dL 6.4-8. 2 Not Available [facility] (Lab Registration) [address] [place], [address], 10/23/2023 12:08:17 10/23/20 23 10/23/2023 COMP METAB OLIC PANEL albumin 3.9 g/dL 3.4-5. 0 Not Available [facility] (Lab Registration) [address] [place], [address], 10/23/2023 12:08:17 10/23/20 23 10/23/2023 COMP METAB OLIC PANEL calcium 9.8 mg/dL 8.5-10 .1 Not Available [facility] (Lab Registration) [address] [place], [address], 10/23/2023 12:08:17 10/23/20 23 10/23/2023 COMP METAB OLIC PANEL corrected calcium 9.9 mg/dL 8.5-10 .1 Not Available [facility] (Lab Registration) [address] [place], [address], 10/23/2023 12:08:17 10/23/20 23 10/23/2023 COMP METAB OLIC PANEL bilirubin total 0.8 mg/dL 0.4-1. 5 Not Available [facility] (Lab Registration) [address] [place], [address], 10/23/2023 12:08:17 10/23/20 23 10/23/2023 COMP METAB OLIC PANEL AST (SGOT) 23 U/L 15-37 Not Available [facility] (Lab Registration) [address] [place], [address], 10/23/2023 12:08:17 10/23/20 23 10/23/2023 COMP METAB OLIC PANEL ALT (SGPT) 35 U/L 12-78 Not Available [facility] (Lab Registration) [address] [place], [address], 10/23/2023 12:08:17 10/23/20 23 10/23/2023 COMP METAB OLIC PANEL alk phosphatase 91 U/L Not Available [facility] (Lab Registration) [address] [place], [address], 10/23/2023 12:08:17 10/23/20 23 10/23/2023 COMP METAB OLIC PANEL note Unles s other bowles noted testi ng perfo rmed at: [facility] [address] [place] [address] [phone] Wesley anaya MD CLIA: [id number] Not Available [facility] (Lab Registration) [address] , [place], [address], 10/23/2023 12:08:17 10/23/20 23 10/23/2023 LIPID PANEL triglyceride 86 mg/dL 20-200 The [employer] t[employer] am (NCEP ) has set the follo wing guide lines for Fasti ng Trigl yceri selvin: ADAMARIS L: <150 mg/dL BORDE RLINE HIGH: 150 - 199 mg/dL HIGH: 200 - 499 mg/dL VERY HIGH: > or =500 mg/dL Not Available [facility] (Lab Registration) [address] , [place], [address], 10/23/2023 12:08:19 10/23/20 23 10/23/2023 LIPID PANEL cholesterol 228 mg/dL 0-200 high The [employer] t[employer] am (NCEP ) has set the follo wing guide lines for Fasti ng Susi stero l: SELAM ABLE: <200 mg/dL BORDE RLINE HIGH: 200 - 239 mg/dL HIGH: > or =240 mg/dL Not Available [facility] (Lab Registration) [address] [place], [address], 10/23/2023 12:08:19 10/23/2010/23/2023 LIPID PANEL HDL cholesterol 72 mg/dL 60- The [employer]ca t[employer] am (NCEP ) has set the follo wing guide lines for Fasti ng HDL Susi stero l: LOW HDL: <40 mg/dL ADAMARIS L: 40 - 60 mg/dL SELAM ABLE: >60 mg/dL Not Available [facility] (Lab Registration) [address] [place], [address], 10/23/2023 12:08:19 10/23/20 23 10/23/2023 LIPID PANEL [...] > or = 190 mg/dL Not Available [facility] (Lab Registration) [address] [place], [address], 10/23/2023 12:08:19 10/23/20 23 10/23/2023 LIPID PANEL chol/HDL ratio 3 ratio -5 Not Available [facility] (Lab Registration) [address] [place], [address], 10/23/2023 12:08:19 10/23/20 23 10/23/2023 LIPID PANEL note Unles s other bowles noted testi ng perfo rmed at: [facility] [address] [place] [address] [phone] Wesley anaya MD CLIA: [id number] Not Available [facility] (Lab Registration) [address] [place], [address], 10/23/2023 12:08:19 10/23/20 23 10/23/2023 HEMOG LOBIN A1C glycosylated hemoglobin A1C 9.8 % 4.5-6. 2 high Not Available [facility] (Lab Registration) [address] [place], [address], 10/23/2023 13:29:42 10/23/20 23 10/23/2023 HEMOG LOBIN A1C estimated average glucose 235 mg/dL 82-131 high Not Available [facility] (Lab Registration) [address] [place], [address], 10/23/2023 13:29:42 10/23/20 23 10/23/2023 HEMOG LOBIN A1C note Unles s other bowles noted testi ng perfo rmed at: [facility] [address] [place] [address] [phone] Wesley anaya MD CLIA: [id number] Not Available [facility] (Lab Registration) [address] [place], [address], 10/23/2023 13:29:42 01/29/20 24 01/29/2024 CBC AUTO W DIFF WBC 7.5 10 4.5-11 .5 Not Available [facility] (Lab Registration) [address] [place], [address], 01/29/2024 13:21:00 01/29/20 24 01/29/2024 CBC AUTO W DIFF RBC 4.49 10 4.25-5 .57 Not Available [facility] (Lab Registration) [address] [place], [address], 01/29/2024 13:21:00 01/29/20 24 01/29/2024 CBC AUTO W DIFF HGB 13.4 g/dL 13.5-1 7.2 low Not Available [facility] (Lab Registration) [address] [place], [address], 01/29/2024 13:21:00 01/29/20 24 01/29/2024 CBC AUTO W DIFF HCT 41.4 % 42.0-5 2.0 low Not Available [facility] (Lab Registration) [address] [place], [address], 01/29/2024 13:21:00 01/29/20 24 01/29/2024 CBC AUTO W DIFF MCV 92.2 fL 80-95 Not Available [facility] (Lab Registration) [address] [place], [address], 01/29/2024 13:21:00 01/29/20 24 01/29/2024 CBC AUTO W DIFF MCH 29.8 pg 27.0-3 4.0 Not Available [facility] (Lab Registration) [address] [place], [address], 01/29/2024 13:21:00 01/29/20 24 01/29/2024 CBC AUTO W DIFF MCHC 32.4 g/dL 32.0-3 6.0 Not Available [facility] (Lab Registration) [address] [place], [address], 01/29/2024 13:21:00 01/29/20 24 01/29/2024 CBC AUTO W DIFF platelet count 263 10 150-45 0 Not Available [facility] (Lab Registration) [address] [place], [address], 01/29/2024 13:21:00 01/29/20 24 01/29/2024 CBC AUTO W DIFF RDW 13.2 % 12.3-1 5.1 Not Available [facility] (Lab Registration) [address] [place], [address], 01/29/2024 13:21:00 01/29/20 24 01/29/2024 CBC AUTO W DIFF MPV 10.7 fL 7.4-10 .4 high Not Available [facility] (Lab Registration) [address] [place], [address], 01/29/2024 13:21:00 01/29/20 24 01/29/2024 CBC AUTO W DIFF granulocyte% 68.6 % 40-75 Not Available [facility] (Lab Registration) [address] [place], [address], 01/29/2024 13:21:00 01/29/20 24 01/29/2024 CBC AUTO W DIFF lymphocyte% 22.0 % 15-57 Not Available [facility] (Lab Registration) [address] [place], [address], 01/29/2024 13:21:00 01/29/20 24 01/29/2024 CBC AUTO W DIFF monocyte% 5.8 % 4.0-12 .0 Not Available [facility] (Lab Registration) [address] [place], [address], 01/29/2024 13:21:00 01/29/20 24 01/29/2024 CBC AUTO W DIFF eosinophil% 2.5 % 0.0-4. 0 Not Available [facility] (Lab Registration) [address] [place], [address], 01/29/2024 13:21:00 01/29/20 24 01/29/2024 CBC AUTO W DIFF basophil% 0.8 % 0.0-1. 0 Not Available [facility] (Lab Registration) [address] [place], [address], 01/29/2024 13:21:00 01/29/20 24 01/29/2024 CBC AUTO W DIFF immature granulocytes % 0.3 % 0.0-0. 8 Not Available [facility] (Lab Registration) [address] [place], [address], 01/29/2024 13:21:00 01/29/20 24 01/29/2024 CBC AUTO W DIFF granulocyte# 5.12 10 Not Available [facility] (Lab Registration) [address] [place], [address], 01/29/2024 13:21:00 01/29/20 24 01/29/2024 CBC AUTO W DIFF lymphocyte# 1.64 10 Not Available [facility] (Lab Registration) [address] [place], [address], 01/29/2024 13:21:00 01/29/20 24 01/29/2024 CBC AUTO W DIFF monocyte# 0.43 10 Not Available [facility] (Lab Registration) [address] [place], [address], 01/29/2024 13:21:00 01/29/20 24 01/29/2024 CBC AUTO W DIFF eosinophil# 0.19 10 Not Available [facility] (Lab Registration) [address] [place], [address], 01/29/2024 13:21:00 01/29/20 24 01/29/2024 CBC AUTO W DIFF basophil# 0.06 10 Not Available [facility] (Lab Registration) [address] [place], [address], 01/29/2024 13:21:00 01/29/20 24 01/29/2024 CBC AUTO W DIFF immature granulocytes # 0.02 10 Not Available [facility] (Lab Registration) [address] [place], [address], 01/29/2024 13:21:00 01/29/20 24 01/29/2024 CBC AUTO W DIFF manual differential NO Not Available [facility] (Lab Registration) [address] [place], [address], 01/29/2024 13:21:00 01/29/20 24 01/29/2024 CBC AUTO W DIFF note Unles s other bowles noted testi ng perfo rmed at: [facility] [address] [place] [address] [phone] Wesley anaya MD CLIA: [id number] Not Available [facility] (Lab Registration) [address] [place], [address], 01/29/2024 13:21:00 01/29/20 24 01/29/2024 HEMOG LOBIN A1C glycosylated hemoglobin A1C 8.3 % 4.5-6. 2 high Not Available [facility] (Lab Registration) [address] [place], [address], 01/29/2024 14:17:27 01/29/20 24 01/29/2024 HEMOG LOBIN A1C estimated average glucose 192 mg/dL 82-131 high Not Available [facility] (Lab Registration) [address], [place], [address], 01/29/2024 14:17:27 01/29/20 24 01/29/2024 HEMOG LOBIN A1C note Brian anaya other bowles noted testi ng perfo rmed at: [facility] [address] [place] [address] [phone] Wesley anaya MD CLIA: [id number] Not Available [facility] (Lab Registration) [address], [place], [address], 01/29/2024 14:17:27 01/29/20 24 01/29/2024 THYRO ID STIMU LATIN G HORMO NE thyroid stimulating hormone 1.60 mIU/m L 0.34-4 .80 Not Available [facility] (Lab Registration) [address] [place], [address], 01/29/2024 14:18:33 01/29/20 24 01/29/2024 THYRO ID STIMU LATIN G HORMO NE note Brian chicas bowles noted testi ng perfo rmed at: [facility] [address] [place] [address] [phone] Wesley anaya MD CLIA: [id number] Not Available [facility] (Lab Registration) [address], [place], [address], 01/29/2024 14:18:33 01/29/20 24 01/29/2024 COMP METAB OLIC PANEL sodium 138 mmol/ L 136-14 5 Not Available [facility] (Lab Registration) [address], [place], [address], 01/29/2024 14:18:35 01/29/20 24 01/29/2024 COMP METAB OLIC PANEL potassium 5.3 mmol/ L 3.5-5. 1 high Not Available [facility] (Lab Registration) [address] [place], [address], 01/29/2024 14:18:35 01/29/20 24 01/29/2024 COMP METAB OLIC PANEL chloride 104 mmol/ L 98-107 Not Available [facility] (Lab Registration) [address] [place], [address], 01/29/2024 14:18:35 01/29/20 24 01/29/2024 COMP METAB OLIC PANEL carbon dioxide 21 mmol/ L 21-32 Not Available [facility] (Lab Registration) [address] [place], [address], 01/29/2024 14:18:35 01/29/20 24 01/29/2024 COMP METAB OLIC PANEL anion gap 13.0 Not Available [facility] (Lab Registration) [address] [place], [address], 01/29/2024 14:18:35 01/29/20 24 01/29/2024 COMP METAB OLIC PANEL glucose 123 mg/dL 70-110 high Not Available [facility] (Lab Registration) [address] [place], [address], 01/29/2024 14:18:35 01/29/20 24 01/29/2024 COMP METAB OLIC PANEL blood urea nitrogen 45 mg/dL 7-18 high Not Available [facility] (Lab Registration) [address] [place], [address], 01/29/2024 14:18:35 01/29/20 24 01/29/2024 COMP METAB OLIC PANEL creatinine 2.0 mg/dL 0.8-1. 3 high Not Available [facility] (Lab Registration) [address] [place], [address], 01/29/2024 14:18:35 01/29/20 24 01/29/2024 COMP METAB OLIC PANEL BUN/creatini ne ratio 22.5 ratio 9-21 high Not Available [facility] (Lab Registration) [address], [place], [address], 01/29/2024 14:18:35 01/29/20 24 01/29/2024 COMP METAB OLIC PANEL estimated glom filtration rate 35 mL/mi n >60- low Not Available [facility] (Lab Registration) [address] [place], [address], 01/29/2024 14:18:35 01/29/20 24 01/29/2024 COMP METAB OLIC PANEL total protein 6.8 g/dL 6.4-8. 2 Not Available [facility] (Lab Registration) [address] [place], [address], 01/29/2024 14:18:35 01/29/20 24 01/29/2024 COMP METAB OLIC PANEL albumin 3.8 g/dL 3.4-5. 0 Not Available [facility] (Lab Registration) [address] [place], [address], 01/29/2024 14:18:35 01/29/20 24 01/29/2024 COMP METAB OLIC PANEL calcium 9.9 mg/dL 8.5-10 .1 Not Available [facility] (Lab Registration) [address] [place], [address], 01/29/2024 14:18:35 01/29/20 24 01/29/2024 COMP METAB OLIC PANEL corrected calcium 10.1 mg/dL 8.5-10 .1 Not Available [facility] (Lab Registration) [address] [place], [address], 01/29/2024 14:18:35 01/29/20 24 01/29/2024 COMP METAB OLIC PANEL bilirubin total 0.7 mg/dL 0.4-1. 5 Not Available [facility] (Lab Registration) [address] [place], [address], 01/29/2024 14:18:35 01/29/20 24 01/29/2024 COMP METAB OLIC PANEL AST (SGOT) 27 U/L 15-37 Not Available [facility] (Lab Registration) [address], [place], [address], 01/29/2024 14:18:35 01/29/20 24 01/29/2024 COMP METAB OLIC PANEL ALT (SGPT) 43 U/L 12-78 Not Available [facility] (Lab Registration) [address] [place], [address], 01/29/2024 14:18:35 01/29/20 24 01/29/2024 COMP METAB OLIC PANEL alk phosphatase 82 U/L Not Available [facility] (Lab Registration) [address] [place], [address], 01/29/2024 14:18:35 01/29/20 24 01/29/2024 COMP METAB OLIC PANEL note Unles s other bowles noted testi ng perfo rmed at: [facility] 9 [facility] [place] [address] [phone] Wesley anaya MD CLIA: [id number] Not Available [facility] (Lab Registration) [address] [place], [address], 01/29/2024 14:18:35 01/29/20 24 01/29/2024 LIPID PANEL triglyceride 46 mg/dL 20-200 [facility] Natio nal Susi stero l Educa tion Progr am (NCEP ) has set the follo wing guide lines for Fasti ng Trigl yceri selvin: ADAMARIS L: <150 mg/dL BORDE RLINE HIGH: 150 - 199 mg/dL HIGH: 200 - 499 mg/dL VERY HIGH: > or =500 mg/dL Not Available [facility] (Lab Registration) [address] [place], [address], 01/29/2024 14:18:37 01/29/20 24 01/29/2024 LIPID PANEL cholesterol 207 mg/dL 0-200 high The Natio nal Susi st[employer] l [employer]ca tion Progr am ([facility]LY [facility] ) has set the follo wing guide lines for Fasti ng Susi stero l: SELAM ABLE: <200 mg/dL BORDE RLINE HIGH: 200 - 239 mg/dL HIGH: > or =240 mg/dL Not Available [facility] (Lab Registration) [address], [place], [address], 01/29/2024 14:18:37 01/29/20 24 01/29/2024 LIPID PANEL HDL cholesterol 81 mg/dL 60- The Natio nal Susi st[employer] l Educa tion Progr am (MNEP ) has set the follo wing guide lines for Fasti ng HDL Susi stero l: LOW HDL: <40 mg/dL ADAMARIS L: 40 - 60 mg/dL SELAM ABLE: >60 mg/dL Not Available [facility] (Lab Registration) [address], [place], [address], 01/29/2024 14:18:37 01/29/20 24 01/29/2024 LIPID PANEL LDL calculated 117 mg/dL 100- The Natio nal Susi st[employer] l [employer]ca tion Progr am ([facility] ) has set the follo wing guide lines for Fasti ng LDL Susi stero l: OPTIM AL: < 100 mg/dL LOW RISK: 100 - 129 mg/dL BORDE RLINE HIGH: 130 - 159 mg/dL HIGH: 160 - 189 mg/dL VERY HIGH: > or = 190 mg/dL Not Available [facility] (Lab Registration) [address], [place], [address], 01/29/2024 14:18:37 01/29/20 24 01/29/2024 LIPID PANEL chol/HDL ratio 3 ratio -5 Not Available [facility] (Lab Registration) [address] [place], [address], 01/29/2024 14:18:37 01/29/20 24 01/29/2024 LIPID PANEL note Unles s other bowles noted testi ng perfo rmed at: [facility] [address] [place] [address] [phone] Wesley anaya MD CLIA: [id number] Not Available [facility] (Lab Registration) [address] [place], [address], 01/29/2024 14:18:37 03/25/20 24 03/25/2024 HEMOG LOBIN A1C glycosylated hemoglobin A1C 7.6 % 4.5-6. 2 high Not Available [facility] (Lab Registration) [address] [place], [address], 03/25/2024 13:36:12 03/25/20 24 03/25/2024 HEMOG LOBIN A1C estimated average glucose 171 mg/dL 82-131 high Not Available [facility] (Lab Registration) [address] [place], [address], 03/25/2024 13:36:12 03/25/20 24 03/25/2024 HEMOG LOBIN A1C note Unles s other bowles noted testi ng perfo rmed at: [facility] [address] [place] [address] [phone] Wesley anaya MD CLIA: [id number] Not Available [facility] (Lab Registration) [address] [place], [address], 03/25/2024 13:36:12 03/25/20 24 03/25/2024 CBC AUTO W DIFF WBC 5.4 10 4.5-11 .5 Not Available [facility] (Lab Registration) [address] [place], [address], 03/25/2024 13:38:29 03/25/20 24 03/25/2024 CBC AUTO W DIFF RBC 4.32 10 4.25-5 .57 Not Available [facility] (Lab Registration) [address] [place], [address], 03/25/2024 13:38:29 03/25/20 24 03/25/2024 CBC AUTO W DIFF HGB 13.1 g/dL 13.5-1 7.2 low Not Available [facility] (Lab Registration) [address] [place], [address], 03/25/2024 13:38:29 03/25/20 24 03/25/2024 CBC AUTO W DIFF HCT 40.0 % 42.0-5 2.0 low Not Available [facility] (Lab Registration) [address] [place], [address], 03/25/2024 13:38:29 03/25/20 24 03/25/2024 CBC AUTO W DIFF MCV 92.6 fL 80-95 Not Available [facility] (Lab Registration) [address] [place], [address], 03/25/2024 13:38:29 03/25/20 24 03/25/2024 CBC AUTO W DIFF MCH 30.3 pg 27.0-3 4.0 Not Available [facility] (Lab Registration) [address] [place], [address], 03/25/2024 13:38:29 03/25/20 24 03/25/2024 CBC AUTO W DIFF MCHC 32.8 g/dL 32.0-3 6.0 Not Available [facility] (Lab Registration) [address] [place], [address], 03/25/2024 13:38:29 03/25/20 24 03/25/2024 CBC AUTO W DIFF platelet count 262 10 150-45 0 Not Available [facility] (Lab Registration) [address] [place], [address], 03/25/2024 13:38:29 03/25/20 24 03/25/2024 CBC AUTO W DIFF RDW 13.5 % 12.3-1 5.1 Not Available [facility] (Lab Registration) [address] [place], [address], 03/25/2024 13:38:29 03/25/20 24 03/25/2024 CBC AUTO W DIFF MPV 10.7 fL 7.4-10 .4 high Not Available [facility] (Lab Registration) [address] [place], [address], 03/25/2024 13:38:29 03/25/20 24 03/25/2024 CBC AUTO W DIFF granulocyte% 59.6 % 40-75 Not Available [facility] (Lab Registration) [address] [place], [address], 03/25/2024 13:38:29 03/25/20 24 03/25/2024 CBC AUTO W DIFF lymphocyte% 26.8 % 15-57 Not Available [facility] (Lab Registration) [address] [place], [address], 03/25/2024 13:38:29 03/25/20 24 03/25/2024 CBC AUTO W DIFF monocyte% 7.6 % 4.0-12 .0 Not Available [facility] (Lab Registration) [address] [place], [address], 03/25/2024 13:38:29 03/25/20 24 03/25/2024 CBC AUTO W DIFF eosinophil% 5.0 % 0.0-4. 0 high Not Available [facility] (Lab Registration) [address] [place], [address], 03/25/2024 13:38:29 03/25/20 24 03/25/2024 CBC AUTO W DIFF basophil% 0.6 % 0.0-1. 0 Not Available [facility] (Lab Registration) [address] [place], [address], 03/25/2024 13:38:29 03/25/20 24 03/25/2024 CBC AUTO W DIFF immature granulocytes % 0.4 % 0.0-0. 8 Not Available [facility] (Lab Registration) [address] [place], [address], 03/25/2024 13:38:29 03/25/20 24 03/25/2024 CBC AUTO W DIFF granulocyte# 3.23 10 Not Available [facility] (Lab Registration) [address] [place], [address], 03/25/2024 13:38:29 03/25/20 24 03/25/2024 CBC AUTO W DIFF lymphocyte# 1.45 10 Not Available [facility] (Lab Registration) [address] [place], [address], 03/25/2024 13:38:29 03/25/20 24 03/25/2024 CBC AUTO W DIFF monocyte# 0.41 10 Not Available [facility] (Lab Registration) [address] [place], [address], 03/25/2024 13:38:29 03/25/20 24 03/25/2024 CBC AUTO W DIFF eosinophil# 0.27 10 Not Available [facility] (Lab Registration) [address] [place], [address], 03/25/2024 13:38:29 03/25/20 24 03/25/2024 CBC AUTO W DIFF basophil# 0.03 10 Not Available [facility] (Lab Registration) [address] [place], [address], 03/25/2024 13:38:29 03/25/20 24 03/25/2024 CBC AUTO W DIFF immature granulocytes # 0.02 10 Not Available [facility] (Lab Registration) [address] [place], [address], 03/25/2024 13:38:29 03/25/20 24 03/25/2024 CBC AUTO W DIFF manual differential NO Not Available [facility] (Lab Registration) [address] [place], [address], 03/25/2024 13:38:29 03/25/20 24 03/25/2024 CBC AUTO W DIFF note Unles s other bowles noted testi ng perfo rmed at: [facility] [address] [place] [address] [phone] Wesley anaya MD CLIA: [id number] Not Available [facility] (Lab Registration) [address] [place], [address], 03/25/2024 13:38:29 03/25/20 24 03/25/2024 COMP METAB OLIC PANEL sodium 142 mmol/ L 136-14 5 Not Available [facility] (Lab Registration) [address] [place], [address], 03/25/2024 13:46:33 03/25/20 24 03/25/2024 COMP METAB OLIC PANEL potassium 5.2 mmol/ L 3.5-5. 1 high Not Available [facility] (Lab Registration) [address] [place], [address], 03/25/2024 13:46:33 03/25/20 24 03/25/2024 COMP METAB OLIC PANEL chloride 109 mmol/ L 98-107 high Not Available [facility] (Lab Registration) [address] [place], [address], 03/25/2024 13:46:33 03/25/20 24 03/25/2024 COMP METAB OLIC PANEL carbon dioxide 22 mmol/ L 21-32 Not Available [facility] (Lab Registration) [address] [place], [address], 03/25/2024 13:46:33 03/25/20 24 03/25/2024 COMP METAB OLIC PANEL anion gap 11.0 Not Available [facility] (Lab Registration) [address] [place], [address], 03/25/2024 13:46:33 03/25/20 24 03/25/2024 COMP METAB OLIC PANEL glucose 106 mg/dL 70-110 Not Available [facility] (Lab Registration) [address] [place], [address], 03/25/2024 13:46:33 03/25/20 24 03/25/2024 COMP METAB OLIC PANEL blood urea nitrogen 44 mg/dL 7-18 high Not Available [facility] (Lab Registration) [address] [place], [address], 03/25/2024 13:46:33 03/25/20 24 03/25/2024 COMP METAB OLIC PANEL creatinine 2.1 mg/dL 0.8-1. 3 high Not Available [facility] (Lab Registration) [address] [place], [address], 03/25/2024 13:46:33 03/25/20 24 03/25/2024 COMP METAB OLIC PANEL BUN/creatini ne ratio 21.0 ratio 9-21 Not Available [facility] (Lab Registration) [address] [place], [address], 03/25/2024 13:46:33 03/25/20 24 03/25/2024 COMP METAB OLIC PANEL estimated glom filtration rate 33 mL/mi n >60- low Not Available [facility] (Lab Registration) [address] [place], [address], 03/25/2024 13:46:33 03/25/20 24 03/25/2024 COMP METAB OLIC PANEL total protein 6.8 g/dL 6.4-8. 2 Not Available [facility] (Lab Registration) [address] [place], [address], 03/25/2024 13:46:33 03/25/20 24 03/25/2024 COMP METAB OLIC PANEL albumin 3.8 g/dL 3.4-5. 0 Not Available [facility] (Lab Registration) [address] [place], [address], 03/25/2024 13:46:33 03/25/20 24 03/25/2024 COMP METAB OLIC PANEL calcium 9.6 mg/dL 8.5-10 .1 Not Available [facility] (Lab Registration) [address], [place], [address], 03/25/2024 13:46:33 03/25/20 24 03/25/2024 COMP METAB OLIC PANEL corrected calcium 9.8 mg/dL 8.5-10 .1 Not Available [facility] (Lab Registration) [address] [place], [address], 03/25/2024 13:46:33 03/25/20 24 03/25/2024 COMP METAB OLIC PANEL bilirubin total 0.6 mg/dL 0.4-1. 5 Not Available [facility] (Lab Registration) [address] [place], [address], 03/25/2024 13:46:33 03/25/20 24 03/25/2024 COMP METAB OLIC PANEL AST (SGOT) 27 U/L 15-37 Not Available [facility] (Lab Registration) [address], [place], [address], 03/25/2024 13:46:33 03/25/20 24 03/25/2024 COMP METAB OLIC PANEL ALT (SGPT) 37 U/L 12-78 Not Available [facility] (Lab Registration) [address] [place], [address], 03/25/2024 13:46:33 03/25/20 24 03/25/2024 COMP METAB OLIC PANEL alk phosphatase 77 U/L Not Available [facility] (Lab Registration) [address] [place], [address], 03/25/2024 13:46:33 03/25/20 24 03/25/2024 COMP METAB OLIC PANEL note Unles s other bowles noted testi ng perfo rmed at: [facility] [address] [place] [address] [phone] Wesley anaya MD CLIA: [id number] Not Available [facility] (Lab Registration) [address] [place], [address], 03/25/2024 13:46:33 03/25/20 24 03/25/2024 LIPID PANEL triglyceride 54 mg/dL 20-200 The Natio nal Susi stero l Educa tion Progr am (NCEP ) has set the follo wing guide lines for Fasti ng Trigl yceri selvin: ADAMARIS L: <150 mg/dL BORDE RLINE HIGH: 150 - 199 mg/dL HIGH: 200 - 499 mg/dL VERY HIGH: > or =500 mg/dL Not Available [facility] (Lab Registration) [address] [place], [address], 03/25/2024 13:47:38 03/25/20 24 03/25/2024 LIPID PANEL cholesterol 204 mg/dL 0-200 high The Natio nal Susi stero l Educa tion Progr am (NCEP ) has set the follo wing guide lines for Fasti ng Susi stero l: SELAM ABLE: <200 mg/dL BORDE RLINE HIGH: 200 - 239 mg/dL HIGH: > or =240 mg/dL Not Available [facility] (Lab Registration) [address] [place], [address], 03/25/2024 13:47:38 03/25/20 24 03/25/2024 LIPID PANEL HDL cholesterol 64 mg/dL 60- The Natio nal Susi stero l Educa tion Progr am (NCEP ) has set the follo wing guide lines for Fasti ng HDL Susi stero l: LOW HDL: <40 mg/dL ADAMARIS L: 40 - 60 mg/dL SELAM ABLE: >60 mg/dL Not Available [facility] (Lab Registration) [address] [place], [address], 03/25/2024 13:47:38 03/25/20 24 03/25/2024 LIPID PANEL [...] > or = 190 mg/dL Not Available [facility] (Lab Registration) [address] , [place], [address], 03/25/2024 13:47:38 03/25/20 24 03/25/2024 LIPID PANEL chol/HDL ratio 3 ratio -5 Not Available [facility] (Lab Registration) [address] , [place], [address], 03/25/2024 13:47:38 03/25/20 24 03/25/2024 LIPID PANEL note Unles s other bowles noted testi ng perfo rmed at: [facility] [address] [place] [address] [phone] Wesley anaya MD CLIA: [id number] Not Available [facility] (Lab Registration) [address] , [place], [address], 03/25/2024 13:47:38 Result Notes None recorded. Problems Name Problem SNOMED Code Status Onset Date Resolution Date Notes Provider Name and Address Organization Details Recorded Time Essential hypertension 75623896 Active 2021 Not Available [facility] 4 05:15:12 Gastroesophag eal reflux disease 271431930 Active 2021 Not Available [facility] 4 05:15:12 Benign prostatic hyperplasia 380628952 Active 2021 Not Available [facility] 4 05:15:12 Type 2 diabetes mellitus 91125082 Active 2021 Not Available [facility] 4 05:15:12 Obstructive sleep apnea syndrome 73680900 Active 2021 Not Available [facility] 4 05:15:12 Hyperlipidemi a 21986858 Active 2021 Not Available [facility] 4 05:15:12 Chronic renal failure 82055430 Active 2021 Not Available [facility] 4 05:15:12 Gout 65165382 Active 2021 Not Available [facility] 4 05:15:12 Nocturnal muscle spasm 95544270 Active 2022 Not Available [facility] 4 05:15:12 Problem Notes None recorded. Procedures Surgical History Date Name Laterality Status Provider Name and Address Organization Details Recorded Time 06/19/20 24 Colonoscopy completed Samantha Temple [place] - [facility] [place] 07/05/2024 10:35:11 04/23/20 19 circumcision completed Mitzysharri Yepezdini [place] [facility] [place] 08/24/2022 09:02:40 03/20/20 17 extracorporeal shockwave lithotripsy of calculus of kidney completed [facility] [place] [facility] [place] 08/24/2022 09:02:24 11/20/19 11 insertion of stent into ureter completed [facility] [place] [facility] [place] 08/24/2022 09:02:04 11/20/19 04 repair of musculotendinous cuff of shoulder completed [facility] [place] [facility] [place] 08/24/2022 09:01:39 11/20/19 04 [facility] [place] [facility] [place] 08/24/2022 09:01:43 appendectomy completed [facility] [place] [facility] [place] 08/24/2022 09:01:17 Imaging Results None recorded. Procedure Notes None recorded. Medical Equipment None Reported. Allergies Allergen ID Allergen Name Allergen Category Reaction Reaction Severity Criticality Documentation Date Start Date Code Code System Note Provider Name and Address Organization Details Recorded Time 33580 amoxicill in medicatio n diarrhea mild Not available 08/24/2022 723 RxNorm Not Available [facility] 4 05:15:12 Medications Name Sig Start Date [...] Updated DateTime 4 175.26 cm 30.8 kg/m2 17742.6 5 g 97.9 [degF] 97 % 97 % 86 /min 16 /min 142/83 mm[Hg] Mitzy Yepezigor [facility] [place] [facility] [place] 4 11:54:16 Date Recorded Body height Body mass index (BMI) Body weight Body temperature Oxygen saturation Oxygen saturation in Arterial blood by Pulse oximetry Heart rate Respiratory rate Systolic And Diastolic Provider Name and Address Organization Details Last Updated DateTime 4 175.26 cm 30.6 kg/m2 18660.3 4 g 97.7 [degF] 99 % 99 % 75 /min 16 /min 145/75 mm[Hg] Mitzy COWAN [facility] [place] 4 11:02:40 Date Recorded Body height Body mass index (BMI) Body weight Body temperature Oxygen saturation Oxygen saturation in Arterial blood by Pulse oximetry Heart rate Respiratory rate Systolic And Diastolic Provider Name and Address Organization Details Last Updated DateTime 4 175.26 cm 30.5 kg/m2 91063.4 7 g 97.3 [degF] 98 % 98 % 62 /min 16 /min 139/80 mm[Hg] Mitzy COWAN [facility] [place] 4 09:38:27 Date Recorded Body height Body mass index (BMI) Body weight Body temperature Oxygen saturation Oxygen saturation in Arterial blood by Pulse oximetry Heart rate Respiratory rate Systolic And Diastolic Provider Name and Address Organization Details Last Updated DateTime 4 175.26 cm 31.2 kg/m2 99716.9 9 g 97.2 [degF] 97 % 97 % 68 /min 16 /min 139/84 mm[Hg] [facility] [place] 4 10:45:09 Date Recorded Body height Body mass index (BMI) Body weight Body temperature Oxygen saturation Oxygen saturation in Arterial blood by Pulse oximetry Heart rate Respiratory rate Systolic And Diastolic Provider Name and Address Organization Details Last Updated DateTime 3 175.26 cm 30.1 kg/m2 13691.8 4 g 97.5 [degF] 100 % 100 % 80 /min 16 /min 156/81 mm[Hg] [facility] [place] 3 09:45:50 Social History Question Answer Notes LastModified by Organizat ion Details LastModified Time Tobacco Smoking Status Never Smoker MEHUL Zavala [facility] [place] 08/24/2022 09:00:55 What Was The Date Of Your Most Recent Tobacco Screening? 01/18/2023 [email or web address] Information not available 01/18/2023 Has Tobacco Cessation [...] Condition Response Gout Y Kidney Stones Y Diabetes Y High Cholesterol Y Hypertension Y Immunizations Vaccine Type Date Status Note Provider Nam e and Address Organization Details Recorded Time Influenza, adjuvanted, trivalent, PF 7 completed Not Available [facility] 12/14/2023 05:15:12 Influenza, MDCK, quadrivalent, PF 8 completed Not Available [facility] 12/14/2023 05:15:12 Influenza, high-dose, quadrivalent, PF 0 completed Not Available [facility] 12/14/2023 05:15:12 Influenza, high-dose, quadrivalent, PF 1 completed Not Available [facility] 12/14/2023 05:15:12 Influenza, high-dose, quadrivalent, PF 2 completed Not Available [facility] 12/14/2023 05:15:12 COVID-19, mRNA, LNP-S, PF, 100 mcg/0.5mL dose or 50 mcg/0.25mL dose 1 completed Not Available [facility] 12/14/2023 05:15:12 COVID-19, mRNA, LNP-S, PF, 100 mcg/0.5mL dose or 50 mcg/0.25mL dose 1 completed Not Available [facility] 12/14/2023 05:15:12 Pneumococcal conjugate PCV 13 8 completed Not Available [facility] 12/14/2023 05:15:12 Influenza, [place] 3 completed Not Available [facility] 12/14/2023 05:15:12 Influenza, high-dose, quadrivalent, PF 3 completed Mitzy Mariee [place], [place] - [facility] [place] 01/16/2024 11:54:33 Past Encounters Encounter ID Performer Location Encounter Start Date Encounter Closed Date Diagnosis/Indication Diagnosis SNOMED-CT Code Diagnosis ICD10 Code Diagnosis IMO Codes Diagnosis Note [id number] MD joel Mark[address] [address] 08/24/2022 08:39:33 08/24/2022 09:20:13 Injury of finger 08561513 S69.91XA partially avulsed nail has been removed. Patient tolerated procedure well. We have dressed finger with antibiotic ointment. [id number] MD joel Mark[address] [address] 09/30/2022 14:35:56 09/30/2022 15:25:25 Benign prostatic hyperplasia 092970831 N40.0 stable Essential hypertension 06086367 I10 patient's blood pressure is elevated. It is questionab le with a took his medication today. I have told him to monitor his blood pressure at home and let me know what his blood pressure log looks like. We may need to adjust his medication s. Gastroesop hageal reflux disease 602861839 K21.9 stable Hyperlipidemia 05739888 E78.5 Stable [id number] MD william Mark[address] [address] 12/23/2022 07:48:01 12/23/2022 08:44:12 Essential hypertension 33008145 I10 patient's blood pressure is elevated. It is questionab le with a took his medication today. I have told him to monitor his blood pressure at home and let me know what his blood pressure log looks like. We may need to adjust his medication s. Type 2 ekaterina betes mellitus 61604553 E11.9 will stop pioglitazo ne. Start patient on Jardiance. Hyperlipidemia 28517042 E78.5 Stable will check lab work today. Gastroesop hageal reflux disease 586873068 K21.9 stable [id number] MD william [address] [address] 01/18/2023 10:46:45 01/18/2023 10:59:30 Type 2 diabetes mellitus 96202977 E11.9 Patient states he is unable to afford his Jardiance. He states he has been taking metformin. I will try to get him approved for Ozempic. Will send in a prescripti on today. Osteoarthritis 063307186 M19.90 patient has osteoarthr itis in both knees. He has an appointmen t follow-up with his orthopedis t in the morning. He is to continue to take Tylenol as needed for pain. [id number] MD william [address] [address] 03/29/2023 08:21:03 03/29/2023 08:48:03 Type 2 diabetes mellitus 24212863 E11.9 PATIENT TO CONTINUE TO TAKE HIS METFORMIN. Cramp in lower limb 4499 42632 R25.2 WILL SEND IN A PRESCRIPTI ON FOR CYCLOBENZA VAIBHAV TO TAKE NEEDED. PATIENT TO ALSO START TAKING HIS POTASSIUM. Benign pro static hyperplasia 763999519 N40.0 PATIENT STATES THAT HIS TAMSULOSIN WORKS WELL FOR HIM. WILL SEND IN A REFILL TODAY. [id number] Matthew Roberts MD [facility] [address] [place] [address] 07/12/2023 08:08:09 07/12/2023 08:47:10 Type 2 diabetes mellitus 50877507 E11.9 PATIENT TO CONTINUE TO TAKE HIS METFORMIN. - WE WILL ADD JARDIANCE TO REGIMEN Screening for malignant neoplasm of colon 187025206 Z12.11 Benign pro static hyperplasia 978219834 N40.0 PATIENT STATES THAT HIS TAMSULOSIN WORKS WELL FOR HIM. WILL SEND IN A REFILL TODAY. Chronic renal failure 90 745507 N18.9 patient to continue to follow-up with nephrology . Essential hypertension 38597386 I10 Blood pressure controlled . Hyperlipidemia 61092733 E78.5 Stable will check lab work today. Gastroesop hageal reflux disease 171890367 K21.9 stable Cramp in lower limb 4499 41737 R25.2 WILL SEND IN A PRESCRIPTI ON FOR CYCLOBENZA VAIBHAV TO TAKE NEEDED. PATIENT TO ALSO START TAKING HIS POTASSIUM. Gout 10684062 M10.9 will renew patient's allopurino l. [id number] Matthew Roberts MD [address] [place] [address] 10/23/2023 09:30:21 10/23/2023 10:11:14 Essential hypertension 33861453 I10 Blood pressure controlled . Gastroesop hageal reflux disease 561833384 K21.9 stable Hyperlipidemia 10375833 E78.5 Stable will check lab work today. Type 2 ekaterina betes mellitus 30023869 E11.9 patient states that he can not 4 Jardiance. He has also stopped his metformin secondary to diarrhea. Patient is currently not on any diabetic medication . 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 No anticoagul ation is required for this. Patient needs to follow-up with his orthopedis t. We attempted to call patient to discuss results of his ultrasound . No blood thinners required at this time.No reply. Mailbox is full. Will try again. [id number] Matthew Roberts MD [address] [place] [address] 01/29/2024 10:46:20 01/29/2024 11:36:47 Type 2 diabetes mellitus 93286167 E11.9 Will check patient's A1c today. Essential hypertension 71905478 I10 Blood pressure controlled . Hyperlipidemia 05928524 E78.5 Stable will check lab work today. Gout 68632163 M10.9 Gastroesop hageal reflux disease 506479507 K21.9 Benign pro static hyperplasia 324899158 N40.0 [id number] Matthew Roberts MD [address] [place] [id number] 03/25/2024 09:27:23 03/25/2024 09:54:49 Type 2 diabetes mellitus 85394757 E11.9 Patient can not afford Ozempic so he has not taken Chronic renal failure 90 976502 N18.9 will check lab work today. Essential hypertension [id number] I10 Blood pressure controlled . Hyperlipidemia [id number] E78.5 Stable will check lab work today. Gout [id number] M10.9 Patient takes allopurino l. Will refill his prescripti on. [id number] Matthew Roberts MD [facility] [address] [place] [phone] 07/09/2024 10:31:32 07/09/2024 10:49:39 Fracture at wrist and/or hand level [id number] S62.91XD continue to follow-up with orthopedis t. Gout [id number] M10.9 Patient takes allopurino l. Will refill his prescripti on. Essential hypertension [id number] I10 Blood pressure controlled . Gastroesop hageal reflux disease [id number] K21.9 Type 2 ekaterina betes mellitus 33466154 E11.9 Benign pro static hyperplasia [id number] N40.0 Health Concerns Section Related Observation LastModified by Organization Detai ls LastModified Time None Recorded Concern Status LastModified by Organization Details LastModified Time None Recorded Advance Directives Directive None Recorded Payers Insurance Date Sequence Insurance Name Policy Number Policy Muhammad Covered Member ID Muhammad Member ID Guarantor Name 06/08/2024 2 [employer] (MEDICARE SUPPLEMENT) Addison Peguero [id number] Addison Peguero 10/25/2024 [place] [employer] [facility] Addison Peguero [id number] Addison Peguero 10/25/2024 1 [place] Addison Peguero [id number] Addison Peguero 10/25/2024 2 [employer] (MEDICARE SUPPLEMENT) Addison Peguero [id number] Addison Peguero 10/25/2024 [place] [facility] (MEDICARE) Addison Peguero [id number] Addison Peguero 06/08/2024 1 [place] Addison Peguero [id number] Addison Adamee 05/12/2020 2 [employer] (MEDICARE SUPPLEMENT) Addison Peguero [id number] Addison Peguero Notes Date Note Type Note Provider Name and Address Organization Details Recorded Time 10/23/2023 text/html PT PRESENTS FOR CHRONIC CARE MANAGEMENT, DENIES ANY NEW ISSUES. IS COMPLIANT WITH MEDICATIONS Matthew Roberts MD [address] [place] [address], [phone], [facility] & [place] 10/23/2023 10:28:30 01/16/2024 text/html ROS as noted [...] copy of his results. Matthew Roberts MD [address] [place] [address], [phone], [facility] - [facility] & [place] 01/16/2024 14:19:30 01/29/2024 text/html patient presents for routine chronic care management. He denies any new issues at this time. Matthew Roberts MD [address] [place] [address], [phone], [facility] & [place] 01/29/2024 11:22:23 03/25/2024 text/html PT PRESENTS FOR CHRONIC CARE MANAGEMENT, DENIES ANY NEW ISSUES. IS COMPLIANT WITH MEDICATIONS Matthew Roberts MD [address] [place] [address], [phone], [facility] & [place] 03/25/2024 09:55:51 07/09/2024 text/html ROS as noted in the HPI Patient presents today for routine follow-up. He states that he Needs refills on his medications. he also states that he broke his right wrist in April. Patient is under the care of He states that he fell Matthew Roberts MD [address] [place] [address], [phone], [facility] & [place] 07/09/2024 10:58:15
--- OUTSIDE RECORDS SUMMARY | 2025-08-31 14:06 | XMS_ITS | Encounter Summary ---
Author Organization [facility] Address [address] [place] [address] Care Team Providers Care Shuttle Car Operator Name Role Phone Samantha Vallecillo APRN Primary Care Provider [phone] Encounter Details Date Type Department Care Team [...] on filedocumented in this encounter Care Teams Shuttle Car Operator Relationship Specialty Start Date End Date Samantha Vallecillo APRN [address] [place] [address] PCP - General Family Medicine 06/19/25 documented as of this encounter
--- OUTSIDE RECORDS SUMMARY | 2025-08-31 14:06 | XMS_ITS | Encounter Summary ---
Author Organization [facility] Address [address] [place] [address] Care Team Providers Care Mechanical Unit Repairer Name Role Phone Samantha Vallecillo AISHA Primary Care Provider [phone] Reason for Referral * Cardiac (Routine) - Closed Specialty Diagnoses / Procedures Referred By Contnatasha t Referred To Contact Diagnoses Precordial chest pain Palpitations Procedures Holter Monitor - 72 Hour Up To 15 Days Melanie Scott MD [address] [place] [address] Phone: tel: fax: [facility] [place] [address] [place] [address] Phone: tel: fax: Referral ID Status Reason Start Date Expiration Date Visits Re quested Visits Authorized [id number] Closed 07/28/2025 10/27/2026 1 1 Encounter Details Date Type Department Care Team (Late st Contact Info) Description 07/28/2025 Telephone [facility] [address] [place] [...] call that patient has been admitted to [facility] for chest pain. Troponins have been negative. [...] Palpitations documented in this encounter Care Teams Mechanical Unit Repairer Relationship Specialty Start Date End Date Samantha Vallecillo APRN [address] [place] [address] PCP - General Family Medicine 06/19/25 documented as of this encounter
--- OUTSIDE RECORDS SUMMARY | 2025-08-31 14:07 | XMS_ITS | Clinical Summary ---
Author Organization [facility] Address [address] [place] [address] Care Team Providers Care Exhibit Designer Name Role Phone Samantha Vallecillo APRN Primary Care Provider [phone] Allergies No known active allergies Medications aspirin [...] Type Department Care Team Description 08/18/2025 Telephone [facility] [address] [place] [address] Melanie Scott MD [facility] - HEART MONITOR QUESTION 07/30/2025 5:00 AM EDT Outside Facility Service [facility] [address] [address] Melanie Scott MD 07/28/2025 1:55 PM EDT Ancillary Procedure [facility] [address] [place] [phone] Precordial chest pain; Palpitations 07/28/2025 Travel 07/28/2025 Telephone [facility] [address] [address] Melanie Scott MD 06/19/2025 5:00 AM EDT Outside Facility Service [facility] [address] [address] Melanie Scott MD from Last 3 Months [...] 3 Months Insurance [facility]ICARE [facility] Care Teams Exhibit Designer Relationship Specialty Start Date End Date Samantha Vallecillo APRN [address] [place] [address] PCP - General Family Medicine 06/19/25
--- OUTSIDE RECORDS SUMMARY | 2025-08-31 14:07 | XMS_ITS | Clinical Summary ---
Author Organization [facility] ([place], [place], [place], [place]) Address [address] [place] [address] Care Team Providers Care Post Graduate Intern Name Role Phone AvelSamantha brantley Yennifer PLATA Primary Care Provider [phone] Allergies No known active allergies Medications aspirin [...] on file Legal Sex Male 7:42 AM [employer] Gender Identity Not on file Sexual Orientation [...] Advance Directives For more information, please contact: [phone] * Full Code (Latest Code Status on File) Date Activated Date Inactivated Comments 02/13/2025 8:51 AM 02/13/2025 3:42 PM Care Teams Post Graduate Intern Relationship Specialty Start Date End Date Samantha Vallecillo NP [address] [place] [address] PCP - General Nurse Practitioner 02/13/25
--- OUTSIDE RECORDS SUMMARY | 2025-08-31 14:07 | XMS_ITS | Patient Health Record ---
Author Organization [facility] Address [address] [place] [address] [place] [address] Care Team Providers Care Grey Iron Molder Name Role Phone FRANK MATIAS Unavailable [phone] Reason For Referral No Information Medications Medication [...] Provider Diagnosis [facility] [place] [address] [place], [place] [id number] 03/11/2025 FRANK MATIAS Plan Of Treatment No Information Medical (General) History Medical History History ICD Code hyperlipidemia, chronic gout y arhtritis, depresion, gerd, ckd, type 2 diabetes
--- OUTSIDE RECORDS SUMMARY | 2025-08-31 14:07 | XMS_ITS | Encounter Summary ---
Author Organization [employer] ([place], [place], [place], [place]) Address [address] [place] [address] Care Team Providers Care Distillery Supervisor Name Role Phone Samantha Vallecillo CLOTH DOFFER Primary Care Provider [phone] Reason for Referral * Diagnostic X-Ray (Emergency) - New Request Specialty Diagnoses / Procedures Referred By Светлана t Referred To Contact Diagnoses Calculus of kidney Procedures X-ray abdomen KUB 1 view Derek Madrigal MD [address] [place] [address] [place] [address] Phone: tel: fax: Referral ID Status Reason Start Date Expiration Date V isits Requested Visits Authorized [id number] New Request 01/24/2025 01/24/2026 1 1 Encounter Details Date Type Department Care Team (Late st Contact Info) Description 01/24/2025 Outside Orders [facility] [place] Office [address] [place] [address] Derek Madrigal MD [address] [place] [address] [address] [place] [address] Calculus of kidney (Primary Dx) Social History Tobacco Use Types Packs/Day Years Used Date Smoking Tobacco: Never Assessed Sex and Gender Information Value Date Recorded Sex Assigned at Not on file 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
--- OUTSIDE RECORDS SUMMARY | 2025-08-31 14:07 | XMS_ITS | Encounter Summary ---
Author Organization [facility] Address [address] [place] [address] Care Team Providers Care Consultant In Ergonomics And Safety Name Role Phone Samantha Vallecillo APRN Primary Care Provider [phone] Reason for Visit * Reason Onset Date Comments [facility] - HEART MONITOR QUESTION 08/18/2025 Encounter Details Date Type Department Care Team (Late st Contact Info) Description 08/18/2025 Telephone [facility] [address] [place] [address] Melanie Scott MD [address] [place] [address] [facility] - HEART MONITOR QUESTION [...] on Monday since he is in the detention and we probably will not have the monitor results by Monday. * Telephone Encounter - Rhiannon Charlton RegSched Rep - 08/18/2025 12:44 PM EDT Caller: Addison Peguero Relationship: Self Best call back number: [phone] What is the best time to reach [...] on filedocumented in this encounter Care Teams Consultant In Ergonomics And Safety Relationship Specialty Start Date End Date Samantha Vallecillo APRN [address] [place] [address] PCP - General Family Medicine 06/19/25 documented as of this encounter
--- OUTSIDE RECORDS SUMMARY | 2025-08-31 14:07 | XMS_ITS | Data Portability ---
Author Organization [employer] [facility] Address [address] [place] [address] Assessment Encounter Date Assessment Date Assessment LastModified by Organization Details LastModified Time 03/21/2025 03/21/2025 RF glipizide per plan below. Patient pending nephrology appt for kidneys. We were able to get urology r/s for next week 03/27/2025 at 1:45 in [place], he was provided appt info. He was advised to seek care with any severe or worsening pain, fever or chills. He was unable to void today, he will try to return urine sample for UA/culture today or tomorrow. Follow up as planned, sooner if needed Not available 03/21/2025 10:48:17 04/18/2025 04/18/2025 Change glipizide to jardiance as prescribed. Samples as packaged per customer technical services manager provided to patient today. Labs per plan [...] Dr. Scott /Fei office on 05/29. Power [phone] (daughter) Not available 05/16/2025 19:21:13 05/30/2025 05/30/2025 Plan to update shingrix at follow up. Continue jardiance - will increase with refill. Keep planned specialist appointments. Follow up in 1 month for recheck, sooner if needed Not available 06/01/2025 16:36:45 06/18/2025 06/18/2025 Going directly to ER for evaluation Spoke with Concha at [facility] ER at 2:04 PM. His daughter Power is driving him directly to ER given his symptomatic hypotension. We did discuss the thyroid finding, I will place order for evaluation of incidental thryoid nodule. If he is not admitted to the hospital, I will refer to [facility] facility for placement. He and daughter are agreeable with this plan. Not available 06/18/2025 15:40:45 Plan of Treatment Reminders Order Date Submit Date Provider Last Modified By Organization Details Last Modified Time Details Appointments None recorded. Lab HbA1c (hemoglobin A1c), blood [address], [address], 5 14:15:14 HbA1c (hemoglobin A1c), blood [address], [address], 5 10:17:29 CMP, serum or plasma 2024 025 KEERTHI [facility] [address] [place] [address], [address], 5 05:06:44 CBC w/ auto diff 2024 025 KEERTHI [facility] ([place]), [address] [place] [address], [address], 5 05:06:43 lipid panel, serum 2024 025 KEERTHI [facility] ([place]), [address] [place] [address], [place], [address], 05:06:45 urinalysis, dipstick 2024 025 [facility], [address] [place] [address], [place], [address], 08:04:10 Referral None recorded. Procedures None recorded. Surgeries None recorded. Imaging US, thyroid - First available. [address] ([facility]), [address], [place], [address], 10:45:57 Medication Orders lisinopril 20 mg-hydrochl orothiazide 12.5 mg tablet 2024 025 [facility], [address] [place] [address], [address], 16:26:13 allopurinol 100 mg tablet 2024 025 [facility], [address] [place] [address], [address], 09:48:58 Jardiance 10 mg tablet 2024 025 [facility], [facility] [place], [address], 5 10:18:12 pioglitazon e 15 mg tablet 2024 025 [facility], [facility] [place], [address], 5 14:22:17 glipizide ER 10 mg tablet, extended release 24 hr 2024 025 [facility], [facility] [place], [address], 10:09:07 Patient TargetsNo targets recorded. Patient Instructions Encounter Date Encounter Id Patient Instructions Last Modified By Organization Details Last Modified Time 03/21/2025 [id number] learning about type 2 diabetes Not available 03/21/2025 10:02:30 type 2 diabetes: care instructions Not available 03/21/2025 10:02:30 high cholesterol : care instructions Not available 03/21/2025 10:02:30 04/18/2025 [id number] learning about type 2 diabetes Not available 04/18/2025 10:17:29 type 2 diabetes: care instructions Not available 04/18/2025 10:17:29 Reason for Referral None Reported. Results Created Date Observation Date Name Description Value Unit Range Abnormal Flag Note LastModifiedBy Organization Detail LastModifiedTime 02/27/20 25 02/27/2025 CBC WITH DIFFE RENTI AL/PL ATELE T WBC 14.3 x10e3 /uL 3.4-10 .8 above high normal Not Available [facility] ([facility]) [address] [place], [address], 02/27/2025 09:28:30 02/27/2002/27/2025 CBC WITH DIFFE RENTI AL/PL ATELE T RBC 4.07 x10e6 /uL 4.14-5 .80 below low normal Not Available [facility] ([facility]) [address] [place], [address], 02/27/2025 09:28:30 02/27/2002/27/2025 CBC WITH DIFFE RENTI AL/PL ATELE T hemoglobin 12.9 g/dL 13.0-1 7.7 below low normal Not Available [facility] ([facility]) [address] [place], [address], 02/27/2025 09:28:30 02/27/20 25 02/27/2025 CBC WITH DIFFE RENTI AL/PL ATELE T hematocrit 38.3 % 37.5-5 1.0 normal Not Available [facility] ([facility]) [address] [facility], [place], [address], 02/27/2025 09:28:30 02/27/20 25 02/27/2025 CBC WITH DIFFE RENTI AL/PL ATELE T MCV 94 fL 79-97 normal Not Available [facility] ([facility]) [address] [facility], [place], [address], 02/27/2025 09:28:30 02/27/20 25 02/27/2025 CBC WITH DIFFE RENTI AL/PL ATELE T MCH 31.7 pg 26.6-3 3.0 normal Not Available [facility] ([facility]) [address] [facility], [place], [address], 02/27/2025 09:28:30 02/27/20 25 02/27/2025 CBC WITH DIFFE RENTI AL/PL ATELE T MCHC 33.7 g/dL 31.5-3 5.7 normal Not Available [facility] ([facility]) [address] [facility], [place], [address], 02/27/2025 09:28:30 02/27/20 25 02/27/2025 CBC WITH DIFFE RENTI AL/PL ATELE T RDW 12.4 % 11.6-1 5.4 Not Available [facility] ([facility]) [address] [facility], [place], [address], 02/27/2025 09:28:30 02/27/20 25 02/27/2025 CBC WITH DIFFE RENTI AL/PL ATELE T platelets 277 x10e3 /uL 150-45 0 normal Not Available [facility] ([facility]) [address] [place], [address], 02/27/2025 09:28:30 02/27/20 25 02/27/2025 CBC WITH DIFFE RENTI AL/PL ATELE T neutrophils 90 % not estab. normal Not Available [facility] ([facility]) [address] [facility], [place], [address], 02/27/2025 09:28:30 02/27/20 25 02/27/2025 CBC WITH DIFFE RENTI AL/PL ATELE T lymphs 6 % not estab. normal Not Available [facility] ([facility]) [address] [facility], [place], [address], 02/27/2025 09:28:30 02/27/20 25 02/27/2025 CBC WITH DIFFE RENTI AL/PL ATELE T monocytes 4 % not estab. normal Not Available [facility] ([facility]) [address] [facility], [place], [address], 02/27/2025 09:28:30 02/27/20 25 02/27/2025 CBC WITH DIFFE RENTI AL/PL ATELE T eos 0 % not estab. normal Not Available [facility] ([facility]) [address] [facility], [place], [address], 02/27/2025 09:28:30 02/27/20 25 02/27/2025 CBC WITH DIFFE RENTI AL/PL ATELE T basos 0 % not estab. normal Not Available [facility] ([facility]) [address] [facility], [place], [address], 02/27/2025 09:28:30 02/27/20 25 02/27/2025 CBC WITH DIFFE RENTI AL/PL ATELE T immature cells PASSENGER BARGE MASTER Not Available [facility] ([facility]) [address] [facility], [place], [address], 02/27/2025 09:28:30 02/27/20 25 02/27/2025 CBC WITH DIFFE RENTI AL/PL ATELE T neutrophils (absolute) 12.9 x10e3 /uL 1.4-7. 0 above high normal Not Available [facility] ([facility]) [address] [facility], [place], [address], 02/27/2025 09:28:30 02/27/20 25 02/27/2025 CBC WITH DIFFE RENTI AL/PL ATELE T lymphs (absolute) 0.8 x10e3 /uL 0.7-3. 1 normal Not Available [facility] ([facility]) [address] [facility], [place], [address], 02/27/2025 09:28:30 02/27/20 25 02/27/2025 CBC WITH DIFFE RENTI AL/PL ATELE T monocytes(ab solute) 0.5 x10e3 /uL 0.1-0. 9 normal Not Available [facility] ([facility]) [address] [facility], [place], [address], 02/27/2025 09:28:30 02/27/20 25 02/27/2025 CBC WITH DIFFE RENTI AL/PL ATELE T eos (absolute) 0.0 x10e3 /uL 0.0-0. 4 normal Not Available [facility] ([facility]) [address] [facility], [place], [address], 02/27/2025 09:28:30 02/27/20 25 02/27/2025 CBC WITH DIFFE RENTI AL/PL ATELE T baso (absolute) 0.0 x10e3 /uL 0.0-0. 2 normal Not Available [facility] ([facility]) [address] [facility], [place], [address], 02/27/2025 09:28:30 02/27/20 25 02/27/2025 CBC WITH DIFFE RENTI AL/PL ATELE T immature granulocytes 0 % not estab. Not Available [facility] ([facility]) [address] [place], [address], 02/27/2025 09:28:30 02/27/20 25 02/27/2025 CBC WITH DIFFE RENTI AL/PL ATELE T immature grans (abs) 0.0 x10e3 /uL 0.0-0. 1 Not Available [facility] ([facility]) [address], [place], [address], 02/27/2025 09:28:30 02/27/20 25 02/27/2025 CBC WITH DIFFE RENTI AL/PL ATELE T NRBC PASSENGER BARGE MASTER Not Available [facility] ([facility]) [address], [place], [address], 02/27/2025 09:28:30 02/27/20 25 02/27/2025 CBC WITH DIFFE RENTI AL/PL ATELE T hematology comments: PASSENGER BARGE MASTER Not Available [facility] ([facility]) [address], [place], [address], 02/27/2025 09:28:30 02/27/20 25 02/27/2025 COMP. METAB OLIC PANEL (14) glucose 87 mg/dL 70-99 normal Not Available [facility] ([facility]) [address] [place], [address], 02/27/2025 09:28:30 02/27/20 25 02/27/2025 COMP. METAB OLIC PANEL (14) BUN 46 mg/dL 8-27 above high normal Not Available [facility] ([facility]) [address] [place], [address], 02/27/2025 09:28:30 02/27/20 25 02/27/2025 COMP. METAB OLIC PANEL (14) creatinine 2.05 mg/dL 0.76-1 .27 above high normal Not Available [facility] ([facility]) [address] [place], [address], 02/27/2025 09:28:30 02/27/20 25 02/27/2025 COMP. METAB OLIC PANEL (14) eGFR 33 mL/mi n/1.7 3 >59 below low normal Not Available [facility] ([facility]) [address] [place], [address], 02/27/2025 09:28:30 02/27/20 25 02/27/2025 COMP. METAB OLIC PANEL (14) BUN/creatini ne ratio 22 10-24 normal Not Available [facility] ([facility]) [address] [facility], [place], [address], 02/27/2025 09:28:30 02/27/20 25 02/27/2025 COMP. METAB OLIC PANEL (14) sodium 141 mmol/ L 134-14 4 normal Not Available [facility] ([facility]) [address] [facility], [place], [address], 02/27/2025 09:28:30 02/27/20 25 02/27/2025 COMP. METAB OLIC PANEL (14) potassium 4.6 mmol/ L 3.5-5. 2 normal Not Available [facility] ([facility]) [address] [facility], [place], [address], 02/27/2025 09:28:30 02/27/20 25 02/27/2025 COMP. METAB OLIC PANEL (14) chloride 106 mmol/ L 96-106 normal Not Available [facility] ([facility]) [address] [facility], [place], [address], 02/27/2025 09:28:30 02/27/20 25 02/27/2025 COMP. METAB OLIC PANEL (14) carbon dioxide, total 20 mmol/ L 20-29 normal Not Available [facility] ([facility]) [address] [facility], [place], [address], 02/27/2025 09:28:30 02/27/20 25 02/27/2025 COMP. METAB OLIC PANEL (14) calcium 10.1 mg/dL 8.6-10 .2 normal Not Available [facility] ([facility]) [address] [facility], [place], [address], 02/27/2025 09:28:30 02/27/20 25 02/27/2025 COMP. METAB OLIC PANEL (14) protein, total 6.7 g/dL 6.0-8. 5 normal Not Available [facility] ([facility]) [address] [place], [address], 02/27/2025 09:28:30 02/27/20 25 02/27/2025 COMP. METAB OLIC PANEL (14) albumin 4.2 g/dL 3.8-4. 8 normal Not Available [facility] ([facility]) [address] [facility], [place], [address], 02/27/2025 09:28:30 02/27/20 25 02/27/2025 COMP. METAB OLIC PANEL (14) globulin, total 2.5 g/dL 1.5-4. 5 Not Available [facility] ([facility]) [address] [place], [address], 02/27/2025 09:28:30 02/27/20 25 02/27/2025 COMP. METAB OLIC PANEL (14) bilirubin, total 0.2 mg/dL 0.0-1. 2 normal Not Available [facility] ([facility]) [address] [place], [address], 02/27/2025 09:28:30 02/27/20 25 02/27/2025 COMP. METAB OLIC PANEL (14) alkaline phosphatase 79 IU/L 44-121 normal Not Available [facility] ([facility]) [address] [place], [address], 02/27/2025 09:28:30 02/27/20 25 02/27/2025 COMP. METAB OLIC PANEL (14) AST (SGOT) 19 IU/L 0-40 normal Not Available [facility] ([facility]) [address] [place], [address], 02/27/2025 09:28:30 02/27/20 25 02/27/2025 COMP. METAB OLIC PANEL (14) ALT (SGPT) 17 IU/L 0-44 normal Not Available [facility] ([facility]) [address] [place], [address], 02/27/2025 09:28:30 02/27/20 25 02/27/2025 LIPID PANEL cholesterol, total 192 mg/dL 100-19 9 normal Not Available [facility] ([facility]) [address] [place], [address], 02/27/2025 09:28:31 02/27/20 25 02/27/2025 LIPID PANEL triglyceride s 51 mg/dL 0-149 normal Not Available [facility] ([facility]) [address] [place], [address], 02/27/2025 09:28:31 02/27/20 25 02/27/2025 LIPID PANEL HDL cholesterol 65 mg/dL >39 normal Not Available [facility] ([facility]) [address] [place], [address], 02/27/2025 09:28:31 02/27/20 25 02/27/2025 LIPID PANEL VLDL cholesterol sharona 10 mg/dL 5-40 Not Available [facility] ([facility]) [address] [place], [address], 02/27/2025 09:28:31 02/27/20 25 02/27/2025 LIPID PANEL LDL chol calc ([facility]) 117 mg/dL 0-99 above high normal Not Available [facility] ([facility]) [address] [place], [address], 02/27/2025 09:28:31 02/27/20 25 02/27/2025 LIPID PANEL LDL calc comment: PASSENGER BARGE MASTER Not Available [facility] ([facility]) [address] [place], [address], 02/27/2025 09:28:31 02/27/20 25 02/27/2025 HCV ANTIB JAIME CASCA DE(PC R/GEN O) HCV Ab Non Reacti ve non reacti ve Not Available [facility] ([facility]) [address] [facility], [place], [address], 02/27/2025 09:28:31 02/27/20 25 02/27/2025 HCV ANTIB JAIME CASCA DE(PC R/GEN O) interpretati on: Commen t Not infec dacia with HCV unles s early or acute infec tion is suspe cted (whic h may be delay ed in an immun ocomp romis ed indiv idual ), or other evide nce exist s to indic ate HCV infec tion. Not Available [facility] ([facility]) [address] [facility], [place], [address], 02/27/2025 09:28:31 02/27/2002/27/2025 HEMOG LOBIN A1C hemoglobin A1C 7.2 % 4.8-5. 6 above high normal Predi abete s: 5.7 - 6.4 Diabe aguila: >6.4 Glyce blade contr ol for adult s with diabe aguila: <7.0 Not Available [facility] ([facility]) [address] [facility], [place], [address], 02/27/2025 09:28:32 02/27/2002/27/2025 PROST ATE-S PECIF IC [...] of yokasta gonzalez se. Not Available [facility] ([facility]) [address], [place], [address], 02/27/2025 09:28:32 03/21/20 25 03/21/2025 urina lysis , dipst ick Leukocytes Negati ve Not Available [address], [address], 03/21/2025 17:43:51 03/21/20 25 03/21/2025 urina lysis , dipst ick Nitrite negati ve Not Available [address], [address], 03/21/2025 17:43:51 03/21/20 25 03/21/2025 urina lysis , dipst ick Urobilinogen .2 Not Available [address], [address], 03/21/2025 17:43:51 03/21/20 25 03/21/2025 urina lysis , dipst ick Protein 30 Not Available [address], [address], 03/21/2025 17:43:51 03/21/20 25 03/21/2025 urina lysis , dipst ick pH 5.5 Not Available [address], [address], 03/21/2025 17:43:51 03/21/20 25 03/21/2025 urina lysis , dipst ick Blood Hemoly zed: Trace Not Available [address], [address], 03/21/2025 17:43:51 03/21/20 25 03/21/2025 urina lysis , dipst ick Specific Rover 1.025 Not Available [address], [address], 03/21/2025 17:43:51 03/21/20 25 03/21/2025 urina lysis , dipst ick Ketone Negati ve Not Available [address], [address], 03/21/2025 17:43:51 03/21/20 25 03/21/2025 urina lysis , dipst ick Bilirubin Negati ve Not Available [address], [address], 03/21/2025 17:43:51 03/21/20 25 03/21/2025 urina lysis , dipst ick Glucose Negati ve Not Available [address], [address], 03/21/2025 17:43:51 04/18/20 25 04/19/2025 CBC WITH DIFFE RENTI AL/PL ATELE T WBC 5.3 x10e3 /uL 3.4-10 .8 normal Not Available [facility] ([facility]) [address] [place], [address], 04/19/2025 05:06:43 04/18/20 25 04/19/2025 CBC WITH DIFFE RENTI AL/PL ATELE T RBC 4.07 x10e6 /uL 4.14-5 .80 below low normal Not Available [facility] ([facility]) [address] [facility], [place], [address], 04/19/2025 05:06:43 04/18/20 25 04/19/2025 CBC WITH DIFFE RENTI AL/PL ATELE T hemoglobin 12.5 g/dL 13.0-1 7.7 below low normal Not Available [facility] ([facility]) [address] [place], [address], 04/19/2025 05:06:43 04/18/20 25 04/19/2025 CBC WITH DIFFE RENTI AL/PL ATELE T hematocrit 39.9 % 37.5-5 1.0 normal Not Available [facility] ([facility]) [address] [place], [address], 04/19/2025 05:06:43 04/18/2004/19/2025 CBC WITH DIFFE RENTI AL/PL ATELE T MCV 98 fL 79-97 above high normal Not Available [facility] ([facility]) [address] [place], [address], 04/19/2025 05:06:43 04/18/20 25 04/19/2025 CBC WITH DIFFE RENTI AL/PL ATELE T MCH 30.7 pg 26.6-3 3.0 normal Not Available [facility] ([facility]) [address] [place], [address], 04/19/2025 05:06:43 04/18/20 25 04/19/2025 CBC WITH DIFFE RENTI AL/PL ATELE T MCHC 31.3 g/dL 31.5-3 5.7 below low normal Not Available [facility] ([facility]) [address] [place], [address], 04/19/2025 05:06:43 04/18/20 25 04/19/2025 CBC WITH DIFFE RENTI AL/PL ATELE T RDW 12.5 % 11.6-1 5.4 Not Available [facility] ([facility]) [address] [place], [address], 04/19/2025 05:06:43 04/18/20 25 04/19/2025 CBC WITH DIFFE RENTI AL/PL ATELE T platelets 236 x10e3 /uL 150-45 0 normal Not Available [facility] ([facility]) [address] [place], [address], 04/19/2025 05:06:43 04/18/20 25 04/19/2025 CBC WITH DIFFE RENTI AL/PL ATELE T neutrophils 62 % not estab. normal Not Available [facility] ([facility]) [address] [place], [address], 04/19/2025 05:06:43 04/18/20 25 04/19/2025 CBC WITH DIFFE RENTI AL/PL ATELE T lymphs 25 % not estab. normal Not Available [facility] ([facility]) [address] [place], [address], 04/19/2025 05:06:43 04/18/20 25 04/19/2025 CBC WITH DIFFE RENTI AL/PL ATELE T monocytes 6 % not estab. normal Not Available [facility] ([facility]) [address] [place], [address], 04/19/2025 05:06:43 04/18/20 25 04/19/2025 CBC WITH DIFFE RENTI AL/PL ATELE T eos 6 % not estab. normal Not Available [facility] ([facility]) [address] [place], [address], 04/19/2025 05:06:43 04/18/20 25 04/19/2025 CBC WITH DIFFE RENTI AL/PL ATELE T basos 1 % not estab. normal Not Available [facility] ([facility]) [address] [place], [address], 04/19/2025 05:06:43 04/18/20 25 04/19/2025 CBC WITH DIFFE RENTI AL/PL ATELE T immature cells PASSENGER BARGE MASTER Not Available [facility] ([facility]) [address] [place], [address], 04/19/2025 05:06:43 04/18/20 25 04/19/2025 CBC WITH DIFFE RENTI AL/PL ATELE T neutrophils (absolute) 3.3 x10e3 /uL 1.4-7. 0 normal Not Available [facility] ([facility]) [address] [facility], [place], [address], 04/19/2025 05:06:43 04/18/20 25 04/19/2025 CBC WITH DIFFE RENTI AL/PL ATELE T lymphs (absolute) 1.3 x10e3 /uL 0.7-3. 1 normal Not Available [facility] ([facility]) [address] [place], [address], 04/19/2025 05:06:43 04/18/20 25 04/19/2025 CBC WITH DIFFE RENTI AL/PL ATELE T monocytes(ab solute) 0.3 x10e3 /uL 0.1-0. 9 normal Not Available [facility] ([facility]) [address] [place], [address], 04/19/2025 05:06:43 04/18/20 25 04/19/2025 CBC WITH DIFFE RENTI AL/PL ATELE T eos (absolute) 0.3 x10e3 /uL 0.0-0. 4 normal Not Available [facility] ([facility]) [address] [place], [address], 04/19/2025 05:06:43 04/18/20 25 04/19/2025 CBC WITH DIFFE RENTI AL/PL ATELE T baso (absolute) 0.1 x10e3 /uL 0.0-0. 2 normal Not Available [facility] ([facility]) [address] [place], [address], 04/19/2025 05:06:43 04/18/20 25 04/19/2025 CBC WITH DIFFE RENTI AL/PL ATELE T immature granulocytes 0 % not estab. Not Available [facility] ([facility]) [address] [facility], [place], [address], 04/19/2025 05:06:43 04/18/20 25 04/19/2025 CBC WITH DIFFE RENTI AL/PL ATELE T immature grans (abs) 0.0 x10e3 /uL 0.0-0. 1 Not Available [facility] ([facility]) [address] [facility], [place], [address], 04/19/2025 05:06:43 04/18/20 25 04/19/2025 CBC WITH DIFFE RENTI AL/PL ATELE T NRBC PASSENGER BARGE MASTER Not Available [facility] ([facility]) [address] [facility], [place], [address], 04/19/2025 05:06:43 04/18/20 25 04/19/2025 CBC WITH DIFFE RENTI AL/PL ATELE T hematology comments: PASSENGER BARGE MASTER Not Available [facility] ([facility]) [address] [facility], [place], [address], 04/19/2025 05:06:43 04/18/20 25 04/19/2025 COMP. METAB OLIC PANEL (14) glucose 121 mg/dL 70-99 above high normal Not Available [facility] ([facility]) [address] [facility], [place], [address], 04/19/2025 05:06:44 04/18/20 25 04/19/2025 COMP. METAB OLIC PANEL (14) BUN 35 mg/dL 8-27 above high normal Not Available [facility] ([facility]) [address] [facility], [place], [address], 04/19/2025 05:06:44 04/18/20 25 04/19/2025 COMP. METAB OLIC PANEL (14) creatinine 2.02 mg/dL 0.76-1 .27 above high normal Not Available [facility] ([facility]) [address] [place], [address], 04/19/2025 05:06:44 04/18/20 25 04/19/2025 COMP. METAB OLIC PANEL (14) eGFR 34 mL/mi n/1.7 3 >59 below low normal Not Available [facility] ([facility]) [address] [place], [address], 04/19/2025 05:06:44 04/18/20 25 04/19/2025 COMP. METAB OLIC PANEL (14) BUN/creatini ne ratio 17 10-24 normal Not Available [facility] ([facility]) [address] [place], [address], 04/19/2025 05:06:44 04/18/20 25 04/19/2025 COMP. METAB OLIC PANEL (14) sodium 142 mmol/ L 134-14 4 normal Not Available [facility] ([facility]) [address] [facility], [place], [address], 04/19/2025 05:06:44 04/18/20 25 04/19/2025 COMP. METAB OLIC PANEL (14) potassium 4.5 mmol/ L 3.5-5. 2 normal Not Available [facility] ([facility]) [address] [facility], [place], [address], 04/19/2025 05:06:44 04/18/20 25 04/19/2025 COMP. METAB OLIC PANEL (14) chloride 107 mmol/ L 96-106 above high normal Not Available [facility] ([facility]) [address] [place], [address], 04/19/2025 05:06:44 04/18/20 25 04/19/2025 COMP. METAB OLIC PANEL (14) carbon dioxide, total 17 mmol/ L 20-29 below low normal Not Available [facility] ([facility]) [address] [place], [address], 04/19/2025 05:06:44 04/18/20 25 04/19/2025 COMP. METAB OLIC PANEL (14) calcium 9.6 mg/dL 8.6-10 .2 normal Not Available [facility] ([facility]) [address] [place], [address], 04/19/2025 05:06:44 04/18/20 25 04/19/2025 COMP. METAB OLIC PANEL (14) protein, total 6.5 g/dL 6.0-8. 5 normal Not Available [facility] ([facility]) [address] [place], [address], 04/19/2025 05:06:44 04/18/20 25 04/19/2025 COMP. METAB OLIC PANEL (14) albumin 4.3 g/dL 3.8-4. 8 normal Not Available [facility] ([facility]) [address] [place], [address], 04/19/2025 05:06:44 04/18/20 25 04/19/2025 COMP. METAB OLIC PANEL (14) globulin, total 2.2 g/dL 1.5-4. 5 Not Available [facility] ([facility]) [address] [place], [address], 04/19/2025 05:06:44 04/18/20 25 04/19/2025 COMP. METAB OLIC PANEL (14) bilirubin, total 0.6 mg/dL 0.0-1. 2 normal Not Available [facility] ([facility]) [address] [place], [address], 04/19/2025 05:06:44 04/18/20 25 04/19/2025 COMP. METAB OLIC PANEL (14) alkaline phosphatase 71 IU/L 44-121 normal Not Available [facility] ([facility]) [address] [place], [address], 04/19/2025 05:06:44 04/18/20 25 04/19/2025 COMP. METAB OLIC PANEL (14) AST (SGOT) 23 IU/L 0-40 normal Not Available [facility] ([facility]) [address] [place], [address], 04/19/2025 05:06:44 04/18/20 25 04/19/2025 COMP. METAB OLIC PANEL (14) ALT (SGPT) 17 IU/L 0-44 normal Not Available [facility] ([facility]) [address] [place], [address], 04/19/2025 05:06:44 04/18/20 25 04/19/2025 LIPID PANEL cholesterol, total 139 mg/dL 100-19 9 normal Not Available [facility] ([facility]) [address] [place], [address], 04/19/2025 05:06:45 04/18/20 25 04/19/2025 LIPID PANEL triglyceride s 60 mg/dL 0-149 normal Not Available [facility] ([facility]) [address] [place], [address], 04/19/2025 05:06:45 04/18/20 25 04/19/2025 LIPID PANEL HDL cholesterol 57 mg/dL >39 normal Not Available [facility] ([facility]) [address] [place], [address], 04/19/2025 05:06:45 04/18/20 25 04/19/2025 LIPID PANEL VLDL cholesterol sharona 13 mg/dL 5-40 Not Available [facility] ([facility]) [address] [place], [address], 04/19/2025 05:06:45 04/18/20 25 04/19/2025 LIPID PANEL LDL chol calc ([facility]) 69 mg/dL 0-99 Not Available [facility] ([facility]) [address] [place], [address], 04/19/2025 05:06:45 04/18/20 25 04/19/2025 LIPID PANEL 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, [place], [address], 04/19/2025 05:06:45 04/18/20 25 04/24/2025 IRON AND TIBC iron bind.cap.(TI BC) 300 ug/dL 250-45 0 normal Not Available [facility] ([facility]) [address] [facility], [place], [address], 04/24/2025 04:07:12 04/18/20 25 04/24/2025 IRON AND TIBC UIBC 183 ug/dL 111-34 3 normal Not Available [facility] ([facility]) [address] [facility], [place], [address], 04/24/2025 04:07:12 04/18/20 25 04/24/2025 IRON AND TIBC iron 117 ug/dL 38-169 normal Not Available [facility] ([facility]) [address] [facility], [place], [address], 04/24/2025 04:07:12 04/18/20 25 04/24/2025 IRON AND TIBC iron saturation 39 % 15-55 normal Not Available [facility] ([facility]) [address] [place], [address], 04/24/2025 04:07:12 04/18/20 25 04/23/2025 MARY EN AUTHO RIZAT ION written authorizatio n Jaspal t Mary en Autho rizat ion Recei noel. Autho rizat ion recei noel from MARY EN REQUE ST 04-23 Logge d by Sandeep Nieto an Not Available [facility] ([facility]) [address] [place], [address], 04/24/2025 04:07:12 04/18/20 25 04/18/2025 HbA1c (hemo globi n A1c), blood HbA1c 6.7 Not Available [address], [address], 04/18/2025 09:43:05 05/16/20 25 05/16/2025 HbA1c (hemo globi n A1c), blood HbA1c 6.8 Not Available [address], [address], 05/16/2025 13:26:07 02/20/20 25 02/19/2025 XR, shoul crissy, 2 or more view No observ ation record ed. [address] (Radiology) [address] , [place], [address], 02/21/2025 10:25:13 02/20/20 25 02/19/2025 XR, shoul crissy, 2 or more view No observ ation record ed. [address] (Radiology) [address] , [place], [address], 02/21/2025 10:24:46 05/07/20 25 05/05/2025 XR, abdom en No observ ation record ed. [facility] [address], [place], [address], 05/07/2025 09:42:29 05/16/20 25 05/16/2025 XR, chest No observ ation record ed. [email or web address] [facility] [address], [place], [address], 05/19/2025 09:20:50 05/16/20 25 05/16/2025 CT, angio gram, chest , w/o contr ast No observ ation record ed. [email or web address] [facility] [address], [place], [place], [address], 05/19/2025 09:41:06 05/16/20 25 05/16/2025 CT, head + brain , w/o contr ast No observ ation record ed. [address], [place], [place], [address], 05/19/2025 09:40:47 05/16/20 25 05/16/2025 CT, lumba r spine , w/wo contr ast No observ ation record ed. [address], [place], [place], [address], 05/19/2025 09:40:27 05/16/20 25 05/16/2025 cardi ac stres s test No observ ation record ed. [address], [place], [place], [address], 05/29/2025 08:44:47 05/16/20 25 05/16/2025 elect rasta diogr am, routi ne ECG, 12 leads min No observ ation record ed. [address], [place], [place], [address], 05/29/2025 08:44:14 05/23/20 25 05/23/2025 XR, abdom en No observ ation record ed. [address] (Radiology) [address] [place] [address] , [place], [address], 05/29/2025 08:42:01 05/26/20 CT, cervi sharona spine , w/o contr ast No observ ation record ed. Not Available 2024 10:34:15 06/15/20 25 06/15/2025 CT, head + brain , w/wo contr ast No observ ation record ed. [address], [place], [address], 06/16/2025 10:40:48 06/15/20 25 06/15/2025 CT, angio gram, head + neck, w/wo contr ast No observ ation record ed. [address], [place], [address], 06/16/2025 10:40:34 06/15/20 25 06/15/2025 CT, angio gram, head, w/ contr ast No observ ation record ed. [address], [place], [place], [address], 06/16/2025 10:40:20 06/15/20 25 06/15/2025 CT, chest + abdom en + pelvi s, w/ contr ast No observ ation record ed. [address], [place], [address], 06/16/2025 10:38:37 06/17/20 25 06/15/2025 elect rocar diogr am No observ ation record ed. [address], [place], [address], 06/18/2025 08:25:51 06/18/20 25 06/18/2025 CT, head + brain , w/o contr ast No observ ation record ed. [address] (Radiology) [address], [place], [address], 06/18/2025 16:49:00 07/27/20 25 07/27/2025 XR, chest , 1 view No observ ation record ed. [address] (Radiology) [place], [address], 07/29/2025 11:19:27 07/27/20 25 07/27/2025 CT, chest , w/o contr ast No observ ation record ed. [address] (Radiology) [address] [place], [address], 07/29/2025 11:18:41 07/27/20 25 07/27/2025 CT, abdom en + pelvi s, w/ contr ast No observ ation record ed. [address] (Radiology) [address] , [place], [address], 07/29/2025 11:18:24 07/28/20 25 07/28/2025 US, duple x, venou s, lower extre mity No observ ation record ed. [address] (Radiology) [address] , [place], [address], 07/29/2025 11:15:30 07/28/20 25 07/28/2025 US, doppl er echoc ardio gram No observ ation record ed. [address] (Radiology) [address] , [place], [address], 07/29/2025 11:12:55 08/28/20 25 08/28/2025 CT, cervi sharona spine , w/wo contr ast No observ ation record ed. [address], [place], [place], [address], 08/28/2025 15:10:25 08/28/20 25 08/28/2025 XR, hip + pelvi s, unila teral No observ ation record ed. [address], [place], [place], [address], 08/28/2025 15:10:43 08/28/20 25 08/28/2025 XR, humer us No observ ation record ed. [address], [place], [place], [address], 08/28/2025 15:10:57 08/28/20 25 08/28/2025 XR, femur No observ ation record ed. [address], [place], [place], [address], 08/28/2025 15:11:12 08/28/20 25 08/28/2025 XR, shoul crissy No observ ation record ed. [address] [place] [address], [place], [address], 08/28/2025 15:24:20 08/28/20 25 08/28/2025 CT, head + brain , w/wo contr ast No observ ation record ed. [address], [place], [address], 08/28/2025 15:24:06 08/28/20 25 08/28/2025 XR, knee No observ ation record ed. [address], [place], [address], 08/28/2025 14:39:42 08/28/20 25 08/28/2025 XR, forea rm No observ ation record ed. [address], [place], [address], 08/28/2025 14:39:26 Result Notes None recorded. Problems Name Problem SNOMED Code Status Onset Date Resolution Date Notes Provider Name and Address Organization Details Recorded Time Infection of toe 051076545 Completed 202310/31/2024 Samantha Vallecillo NP [address] [place] [address], [address], [facility] 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 4 12:09:13 Type 2 diabetes mellitus without complicatio n 628869598 Completed 202303/21/2025 Samantha Vallecillo NP [address] [place] [address], [address], [facility] [employer] 5 10:01:28 Gastroesoph ageal reflux disease without esophagitis 531421820 Active 2023 Samantha Vallecillo NP [address] [place] [address], [address], [facility] [employer] 4 12:09:07 Chronic gouty arthritis 83986920 Active 2023 Samantha Vallecillo NP [address] [place] [address], [address], [facility] [employer] 4 12:09:05 Body mass index 30+ - obesity 816587020 Active 2023 Samantha Vallecillo NP [address] [place] [address], [address], [facility] [employer] 4 12:09:30 Hypertensiv e disorder 54471691 Active 2023 Samantha Vallecillo NP [address] [place] [address], [address], [facility] 4 12:09:25 Hyperlipide miguel 04187256 Active 2024 Samantha Vallecillo NP [address] [place] [address], [address], [facility] 5 09:07:34 Adjustment disorder with depressed mood 04490216 Active 2024 Samantha Vallecillo NP [address] [place] [address], [address], [facility] 5 09:07:38 Chronic kidney disease 697335690 Active 2024 Samantha Vallecillo NP [address] [place] [address], [address], [facility] [employer] 5 09:59:50 Type 2 diabetes mellitus 52899418 Active 2024 Samantha Vallecillo NP [address] [place] [address], [address], [facility] 5 10:01:21 Dizziness 641904767 Active 2024 Samantha Vallecillo NP [address] [place] [address], [address], [facility] [employer] 15:40:33 Anemia 317031659 Active 2024 Samantha Vallecillo NP [address] [place] [address], [address] 8, [facility] [employer] 15:40:40 Kidney stone 35535738 Active 2024 Samantha Vallecillo, BONI [address] [place] [address], [address], [facility] 15:40:30 Chronic low back pain 455201476 Active 2024 Samantha Vallecillo NP [address] [place] [address], [address], [facility] [employer] 15:40:38 Urinary incontinenc e 488496129 Active 2024 Samantha Vallecillo NP [address] [place] [address], [address], [employer] [facility] 15:40:22 Thyroid nodule 860169326 Active 2024 Samantha Vallecillo NP [address] [place] [address], [address], [facility] [employer] 15:40:24 Low blood pressure 75485144 Active 2024 Samantha Vallecillo NP [address] [place] [address], [address], [employer] [facility] 15:40:28 Neck pain 10721480 Active 2024 Samantha Vallecillo NP [address] [place] [address], [address], [employer] [facility] 15:40:27 Problem Notes None recorded. Procedures Surgical History Date Name Laterality Status Provider Name and Address Organization Details Recorded Time complete repair of rotator cuff completed Griselda Powell [facility] 07/03/2024 12:06:07 procedure on nerve completed GriseldaCloudvu, SMITH (formerly [facility]). 07/03/2024 12:06:55 total knee replacement completed [facility]. 07/03/2024 12:07:10 Appendectomy completed [facility]. 07/03/2024 12:07:17 total replacement of hip completed [facility]. 07/03/2024 12:07:28 Imaging Results None recorded. Procedure [...] 1 capsule every day by oral route. 01/295 completed Not Available Not Available Not Available [...] Updated DateTime 5 175.26 cm 31.2 kg/m2 60718.0 9 g 92 /min 98 % 98 % 139/76 mm[Hg] [employer] 5 09:58:30 Date Recorded Body height Body mass index (BMI) Body weight Heart rate Oxygen saturation Oxygen saturation in Arterial blood by Pulse oximetry Systolic And Diastolic Provider Name and Address Organization Details Last Updated DateTime 5 175.26 cm 31.2 kg/m2 60369.0 9 g 70 /min 98 % 98 % 139/79 mm[Hg] [employer] 5 09:42:09 Date Recorded Body height Body mass index (BMI) Body weight Heart rate Oxygen saturation Oxygen saturation in Arterial blood by Pulse oximetry Systolic And Diastolic Provider Name and Address Organization Details Last Updated DateTime 5 175.26 cm 30.6 kg/m2 94421.3 2 g 106 /min 94 % 94 % 124/77 mm[Hg] [employer] 5 13:15:48 Date Recorded Body height Body mass index (BMI) Body weight Heart rate Oxygen saturation Oxygen saturation in Arterial blood by Pulse oximetry Systolic And Diastolic Provider Name and Address Organization Details Last Updated DateTime 5 175.26 cm 29.8 kg/m2 01763.8 7 g 82 /min 96 % 96 % 136/78 mm[Hg] MD [facility] [employer] 5 09:04:58 Date Recorded Body height Heart rate Oxygen saturation Oxygen saturation in Arterial blood by Pulse oximetry Systolic And Diastolic Provider Name and Address Organization Details Last Updated DateTime 5 175.26 cm 104 /min 98 % 98 % 86/55 mm[Hg] MD [facility] 5 13:34:39 Social History Question Answer Notes LastModified by Organizat ion Details LastModified Time Tobacco Smoking Status Never Smoker Griselda yeung, [employer]. 07/03/2024 12:05:06 Is Your Home Air Conditioned? [...] Of Your Most Recent Tobacco Screening? 06/18/2025 [email or web address] Information not available 06/18/2025 What Is Your Relationship Status? Information not available 07/03/2024 Do You Use Your Seat Belt Or Car Seat Routinely? Yes Information not available 07/03/2024 Are You Sexually Active? No [email or web address] Information not available 10/31/2024 Do You Have Smoke And Carbon Monoxide Detectors In Your Home? Yes Information not available 07/03/2024 Are You Passively Exposed To Smoke? No Information no t available 07/03/2024 Are There Any Smokers In Your House? No Information not available 07/03/2024 Do You Participate In Social Media? Yes [email or web address] Information not available 10/31/2024 Has Tobacco Cessation Counseling Been Provided? No Information not available 07/03/2024 Have You Recently Traveled Abroad? No Information not available 07/03/2024 Do You Have Difficulty Walking Or Climbing Stairs? Yes Information not available 07/03/2024 Are You Currently In School? No [email or web address] Information not available 10/31/2024 Do You Have Any Dietary Restrictions? Yes [email or web address] Information not available 10/31/2024 Sex: Male Functional Status Question Answer Note LastModified by Organizat ion Details LastModified Time Do you use any illicit or recreational drugs? No Information not available 07/03/2024 Do you or have you ever used any other forms of tobacco or nicotine? No [email or web address] Information not available 10/31/2024 What is your level of alcohol consumption? None Information not available 07/03/2024 Are you currently employed? No Information not available 07/03/2024 Do you have transportation difficulties? No [email or web address] Information not available 10/31/2024 Are you able [...] anxious, or unable to sleep at night)? [id number] Information not available 10/31/2024 Do you have difficulty concentrating, remembering or making decisions? No Information no t available 07/03/2024 Family History Nothing Reported. Medical History Condition Response Diabetes Y Gout Y Hospitalizations N Emergency room visit since last appointm ent. Y Hypertension Y Immunizations Vaccine Type Date Status Note Provider Nam e and Address Organization Details Recorded Time Influenza, high-dose, trivalent, PF 4 completed Samantha Vallecillo, BONI [address] [place], [address], [facility] 11/02/2024 09:27:35 zoster recombinant 5 completed Samantha Vallecillo, BONI [address] [place], [address], [facility] 03/05/2025 13:28:44 Influenza, adjuvanted, trivalent, PF 7 completed Griselda yeung, [facility] 07/03/2024 11:45:29 Influenza, MDCK, quadrivalent, PF 8 completed Griselda yeung, [facility] 07/03/2024 11:45:29 Influenza, high-dose, quadrivalent, PF 0 completed Griselda yeung, [facility] 07/03/2024 11:45:30 Influenza, high-dose, quadrivalent, PF 1 completed Griselda yeung, [facility] 07/03/2024 11:45:30 Influenza, high-dose, quadrivalent, PF 2 completed Griselda Sherry gamal, [facility] 07/03/2024 11:45:30 Influenza, high-dose, quadrivalent, PF 3 completed Griselda Powell gamal [facility] 07/03/2024 11:45:30 COVID-19, mRNA, LNP-S, PF, 100 mcg/0.5mL dose or 50 mcg/0.25mL dose 1 completed Griseldazita Powell gamal, [employer] 07/03/2024 11:45:30 COVID-19, mRNA, LNP-S, PF, 100 mcg/0.5mL dose or 50 mcg/0.25mL dose 1 completed Griselda Jolly gamal [employer] 07/03/2024 11:45:30 Pneumococcal conjugate PCV 13 8 completed Griselda Sherry gamal, [employer] 07/03/2024 11:45:30 Past Encounters Encounter ID Performer Location Encounter Start Date Encounter Closed Date Diagnosis/Indication Diagnosis SNOMED-CT Code Diagnosis ICD10 Code Diagnosis IMO Codes Diagnosis Note [id number] Samantha Vallecillo NP [place] [phone] 07/03/2024 11:33:53 07/03/2024 12:37:25 Infection of toe 310944841 L08.9 Onychomyco sis of toenails 356390250 B35.1 [id number] Samantha Vallecillo NP [place] [id number] 10/31/2024 10:57:05 10/31/2024 13:26:50 Type 2 diabetes mellitus without complication 768670372 E11.9 Body mass index 30+ - obesity 506631994 Z68.31 Hypertensive disorder 38 899677 I10 Chronic go uty arthritis 01189660 M1A.00X0 Gastroesop hageal reflux disease without esophagitis 342334881 K21.9 Screening for cardiovascular system disease 801073486 Z13.6 Active or passive immunization 562482914 Z23 [id number] Samantha Vallecillo NP [place] [id number] 0 01/30/2025 10:50:59 01/30/2025 12:11:12 Hyperlipidemia 93820749 E78.5 Type 2 ekaterina betes mellitus without complication 338206003 E11.9 Hypertensive disorder 38 062741 I10 Adult heal th examination 486002374 Z00.00 Adjustment disorder with depressed mood 40732896 F43.21 Body mass index 30+ - obesity 921309961 Z68.31 [id number] Samantha Vallecillo NP [place] [id number] 0 02/26/2025 08:39:43 02/26/2025 09:34:34 Hypertensive disorder 34650374 I10 Type 2 ekaterina betes mellitus without complication 747533889 E11.9 Hyperlipidemia 90412724 E78.5 Hepatitis C screening 41 8313074 Z11.59 Screening for malignant neoplasm of prostate 986010578 Z12.5 Active or passive immunization 843770182 Z23 [id number] Samantha Vallecillo NP [place] [id number] 0 03/21/2025 09:21:29 03/21/2025 10:43:45 Type 2 diabetes mellitus 44527951 E11.22 N18.32 1973252375 Hyperlipidemia 48136365 E78.5 Hypertensive disorder 38 912059 I10 [id number] Samantha Vallecillo NP [place] [id number] 0 04/18/2025 09:22:01 04/18/2025 10:38:04 Type 2 diabetes mellitus 29883700 E11.22 N18.32 7596545413 Dizziness 840224701 R42 55958 Hyperlipidemia 96332258 E78.5 Chronic ki dney disease 868340935 N18.9 [id number] Samantha Vallecillo NP [place] [id number] 0 05/16/2025 12:32:57 05/16/2025 14:23:00 Type 2 diabetes mellitus 33999375 E11.22 N18.32 0091089125 Chronic low back pain 27 9054156 M54.42 G89.29 26958511 Urinary incontinence 165 646000 N39.498 [id number] Samantha Vallecillo NP [address] [phone] 05/30/2025 08:30:23 05/30/2025 09:42:32 Chronic kidney disease 031855963 N18.9 Chronic go uty arthritis 04905134 M1A.00X0 Hyperlipidemia 32073870 E78.5 Hypertensive disorder 38 700713 I10 Type 2 ekaterina betes mellitus 15507847 E11.22 N18.32 2276908777 [id number] Samantha Vallecillo NP [address] [id number] 06/18/2025 12:52:59 06/18/2025 15:09:36 Thyroid nodule 435882465 E04.1 16444 Neck pain 44807207 M54.2 93383 Low blood pressure 71085 003 I95.9 80629154 Health Concerns Section Related Observation LastModified by Organization Detai ls LastModified Time None Recorded Concern Status LastModified by Organization Details LastModified Time None Recorded Advance Directives Directive None Recorded Payers Insurance Date Sequence Insurance Name Policy Number Policy Muhammad Covered Member ID Muhammad Member ID Guarantor Name 06/29/2025 [place] [facility] Addisonmadi Boswell McKee [id number] Addison Peguero 06/29/2025 1 [place] Addison J Peguero [id number] Addison Peguero 05/09/2025 1 [place] [facility] Addison Peguero [id number] Addison Peguero 06/29/2025 2 [employer] (MEDICARE SUPPLEMENT) Addison Boswell Peguero [id number] Addison Peguero 05/08/2025 SLIDING FEE SCHEDULE - [...] had a fever or chills. Carolyn yeung, [employer] 03/22/2025 12:05:49 04/18/2025 text/html Patient presents for [...] working on getting her into detention. Samantha Vallecillo NP [address] [place], [address], [facility] 04/21/2025 09:44:42 05/16/2025 text/html Patient presents for [...] not feel right. Samantha Vallecillo NP [address] [place], [address], [employer] 05/16/2025 19:21:49 05/30/2025 text/html Patient presents as walk-in for follow up after ER visit. He went to ER on 05/23/2025. States that he had some abdominal pain and had to go to ER. States that he was diagnosed with too much gas. States that he has made dietary changes and that has helped with his abdominal discomfort.He was also seen at [facility] on 05/16 r/t back pain.He sometimes has difficulty swallowing with really dry foods.Follows up with urology on 08/28/2025.He states he is doing much better overall.He is tolerating his jardiance without issue. Samantha Vallecillo NP [address] [place], [address], [employer] 06/01/2025 16:37:12 06/18/2025 text/html Patient presents for follow up. He has had multiple ER visits in the last few months and is here to follow up after most recent ER visit 3 days ago. He went to [facility] and his neck was hurting really bad. [...] but lives alone. [facility]. He continues to struggle with incontinence since he had his last kidney stone surgery. He really thinks he would benefit from going into the detention, but he is unsure if he wants to do that. He does have neck pain today on the left side and feels dizzy and weak. Samantha Vallecillo NP [address] [place], [address], [employer] 06/18/2025 15:41:35
--- OUTSIDE RECORDS SUMMARY | 2025-08-31 14:07 | XMS_ITS | Referral Summary ---
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
--- OUTSIDE RECORDS SUMMARY | 2025-08-31 14:07 | XMS_ITS | Data Portability ---
Author Organization MEHUL NORY Curran BLAIR CLOSED Address [address] [address] [place] [address] Care Team Providers Care Massage Coordinator Name Role Phone MAKEDA ROBERTSE Primary Care Provider [phone] CANELO LEWIS Primary Care Provider Assessment Encounter [...] prepped and draped in normal fashion. A #22-[place] cystoscopy sheath was introduced. The urethra was [...] and stent removal in the near future. [email or web address] Not available 02/06/2025 13:05:34 03/27/2025 03/27/2025 - [...] Modified Time Details Appointments None recorded. Lab urinalysis panel, auto 2024 025 [email or web address] 14 [facility], [address], [address], [place], [address], 5 16:44:04 urinalysis panel, auto 2024 025 [email or web address] 14 [facility], [address], [address], [place], [address], 5 14:13:13 urinalysis panel, auto 2024 025 [email or web address] [facility], [address], [address], [place], [address], 5 10:37:09 urinalysis panel, auto 2024 025 [email or web address] 14 [facility], [address], [address], [place], [address], 13:44:59 Referral None recorded. Procedures None recorded. Surgeries cystoscopy, with ureteroscop y, with lithotripsy , with insertion of ureteral stent (SURG) 2024 025 [email or web address] [facility], [address] [facility], [address], [place], [address], 16:26:09 Imaging None recorded. Medication Orders fesoterodin e ER 8 mg tablet,exte nded release 24 hr 2024 025 KEERTHI [facility], [address] [place], [address], 5 16:44:27 tamsulosin 0.4 mg capsule 2024 025 KEERTHI [facility], [address] [place], [address], 5 14:14:26 solifenacin 10 mg tablet 2024 025 KEERTHI [facility], [address] [place], [address], 5 16:44:25 tamsulosin 0.4 mg capsule 2024 025 [email or web address] 14 [facility], [address] [place], [address], 5 13:17:40 Patient TargetsNo targets recorded. Patient Instructions Encounter Date Encounter Id Patient Instructions Last Modified By Organization Details Last Modified Time 01/28/2025 [id number] - Take tamsulosi n twice daily as prescribed. - Monitor symptoms, especially urinary changes. - Use pain medication as needed. - Follow up in one week or sooner if symptoms worsen. - Contact office if experiencing severe pain or new symptoms. [email or web address] Not available 01/28/2025 10:13:19 03/27/2025 [id number] - Stop taking Gemtesa. - Increase tamsulosin [...] night. [email or web address] Not available 03/27/2025 14:15:11 05/05/2025 [id number] - Continue takin g tamsulosin as prescribed. - Start new medication, fesoterodine, as directed. - Drink plenty of fluids and reduce salt intake to help prevent kidney stones. [email or web address] Not available 05/05/2025 16:47:13 Reason for Referral None Reported. Results Created Date Observation Date Name Description Value Unit Range Abnormal Flag Note LastModifiedBy Organization Detail LastModifiedTime 01/29/20 25 01/28/2025 urina lysis panel , auto Unknown Analyte Clean Catch Not Available [facility] [address] [address], [address], 01/28/2025 14:01:50 01/29/20 25 01/28/2025 urina lysis panel , auto Unknown Analyte Yellow Not Available [facility] [address], [place], [address], 01/28/2025 14:01:50 01/29/20 25 01/28/2025 urina lysis panel , auto Unknown Analyte Clear Not Available [facility] [address], [place], [address], 01/28/2025 14:01:50 01/29/20 25 01/28/2025 urina lysis panel , auto Unknown Analyte 1.015 Not Available [facility] [address], [place], [address], 01/28/2025 14:01:50 01/29/20 25 01/28/2025 urina lysis panel , auto Unknown Analyte 1.003 - 1.030 Not Available [facility] [address], [place], [address], 01/28/2025 14:01:50 01/29/20 25 01/28/2025 urina lysis panel , auto Unknown Analyte 5.0 Not Available [facility] [address], [place], [address], 01/28/2025 14:01:50 01/29/20 25 01/28/2025 urina lysis panel , auto Unknown Analyte 5.0 - 8.0 Not Available [facility] [address], [place], [address], 01/28/2025 14:01:50 01/29/20 25 01/28/2025 urina lysis panel , auto Unknown Analyte Negati ve Not Available [facility] [address], [place], [address], 01/28/2025 14:01:50 01/29/20 25 01/28/2025 urina lysis panel , auto Unknown Analyte Negati ve Not Available [facility] [address], [place], [address], 01/28/2025 14:01:50 01/29/20 25 01/28/2025 urina lysis panel , auto Unknown Analyte Negati ve Not Available [facility] [address], [place], [address], 01/28/2025 14:01:50 01/29/20 25 01/28/2025 urina lysis panel , auto Unknown Analyte Negati ve Not Available [facility] [address], [place], [address], 01/28/2025 14:01:50 01/29/20 25 01/28/2025 urina lysis panel , auto Unknown Analyte Negati ve Not Available [facility] [address], [place], [address], 01/28/2025 14:01:50 01/29/20 25 01/28/2025 urina lysis panel , auto Unknown Analyte Negati ve Not Available [facility] [address], [place], [address], 01/28/2025 14:01:50 01/29/20 25 01/28/2025 urina lysis panel , auto Unknown Analyte Normal Not Available [facility] [address], [place], [address], 01/28/2025 14:01:50 01/29/20 25 01/28/2025 urina lysis panel , auto Unknown Analyte Normal Not Available [facility] [address], [place], [address], 01/28/2025 14:01:50 01/29/20 25 01/28/2025 urina lysis panel , auto Unknown Analyte Negati ve Not Available [facility] [address], [place], [address], 01/28/2025 14:01:50 01/29/20 25 01/28/2025 urina lysis panel , auto Unknown Analyte Negati ve Not Available [facility] [address], [place], [address], 01/28/2025 14:01:50 01/29/20 25 01/28/2025 urina lysis panel , auto Unknown Analyte Normal Not Available [facility] [address], [place], [address], 01/28/2025 14:01:50 01/29/20 25 01/28/2025 urina lysis panel , auto Unknown Analyte Normal Not Available [facility] [address], [place], [address], 01/28/2025 14:01:50 01/29/20 25 01/28/2025 urina lysis panel , auto Unknown Analyte Negati ve Not Available [facility] [address], [place], [address], 01/28/2025 14:01:50 01/29/20 25 01/28/2025 urina lysis panel , auto Unknown Analyte Negati ve Not Available [facility] [address], [place], [address], 01/28/2025 14:01:50 01/29/20 25 01/28/2025 urina lysis panel , auto Unknown Analyte Negati ve Not Available [facility] [address], [place], [address], 01/28/2025 14:01:50 01/29/20 25 01/28/2025 urina lysis panel , auto Unknown Analyte Negati ve Not Available [facility] [address], [place], [address], 01/28/2025 14:01:50 02/01/20 25 01/31/2025 urina lysis panel , auto Unknown Analyte Clean Catch Not Available [facility] Surgery Schedule [address] [place], [address], 01/31/2025 13:46:54 02/01/20 25 01/31/2025 urina lysis panel , auto Unknown Analyte Yellow Not Available [facility] Surgery Schedule [address] [place], [address], 01/31/2025 13:46:54 02/01/20 25 01/31/2025 urina lysis panel , auto Unknown Analyte Clear Not Available [facility] Surgery Schedule [address] [place], [address], 01/31/2025 13:46:54 02/01/20 25 01/31/2025 urina lysis panel , auto Unknown Analyte 1.015 Not Available [facility] Surgery Schedule [address] [place], [address], 01/31/2025 13:46:54 02/01/20 25 01/31/2025 urina lysis panel , auto Unknown Analyte 1.003 - 1.030 Not Available [facility] Surgery Schedule [address] [place], [address], 01/31/2025 13:46:54 02/01/20 25 01/31/2025 urina lysis panel , auto Unknown Analyte 5.0 Not Available [facility] Surgery Schedule [address] [place] [address], [address], 01/31/2025 13:46:54 02/01/20 25 01/31/2025 urina lysis panel , auto Unknown Analyte 5.0 - 8.0 Not Available [facility] Surgery Schedule [address] [place] [address], [address], 01/31/2025 13:46:54 02/01/20 25 01/31/2025 urina lysis panel , auto Unknown Analyte Negati ve Not Available [facility] Surgery Schedule [address] [place] [address], [address], 01/31/2025 13:46:54 02/01/20 25 01/31/2025 urina lysis panel , auto Unknown Analyte Negati ve Not Available [facility] Surgery Schedule [address] [place] [address], [address], 01/31/2025 13:46:54 02/01/20 25 01/31/2025 urina lysis panel , auto Unknown Analyte Negati ve Not Available [facility] Surgery Schedule [address] [place] [address], [address], 01/31/2025 13:46:54 02/01/20 25 01/31/2025 urina lysis panel , auto Unknown Analyte Negati ve Not Available [facility] Surgery Schedule [address] [place] [address], [address], 01/31/2025 13:46:54 02/01/20 25 01/31/2025 urina lysis panel , auto Unknown Analyte Trace Not Available [facility] Surgery Schedule [address] [place] [address], [address], 01/31/2025 13:46:54 02/01/20 25 01/31/2025 urina lysis panel , auto Unknown Analyte Negati ve Not Available [facility] Surgery Schedule [address] [place], [address], 01/31/2025 13:46:54 02/01/20 25 01/31/2025 urina lysis panel , auto Unknown Analyte Normal Not Available [facility] Surgery Schedule [address] [place], [address], 01/31/2025 13:46:54 02/01/20 25 01/31/2025 urina lysis panel , auto Unknown Analyte Normal Not Available [facility] Surgery Schedule [address] [place], [address], 01/31/2025 13:46:54 02/01/20 25 01/31/2025 urina lysis panel , auto Unknown Analyte Negati ve Not Available [facility] Surgery Schedule [address] [place], [address], 01/31/2025 13:46:54 02/01/20 25 01/31/2025 urina lysis panel , auto Unknown Analyte Negati ve Not Available [facility] Surgery Schedule [address] [place], [address], 01/31/2025 13:46:54 02/01/20 25 01/31/2025 urina lysis panel , auto Unknown Analyte Normal Not Available [facility] Surgery Schedule [address] [place], [address], 01/31/2025 13:46:54 02/01/20 25 01/31/2025 urina lysis panel , auto Unknown Analyte Normal Not Available [facility] Surgery Schedule [address] [place], [address], 01/31/2025 13:46:54 02/01/20 25 01/31/2025 urina lysis panel , auto Unknown Analyte Negati ve Not Available [facility] Surgery Schedule [address] [place], [address], 01/31/2025 13:46:54 02/01/20 25 01/31/2025 urina lysis panel , auto Unknown Analyte Negati ve Not Available [facility] Surgery Schedule [address] [place], [address], 01/31/2025 13:46:54 02/01/20 25 01/31/2025 urina lysis panel , auto Unknown Analyte Negati ve Not Available [facility] Surgery Schedule [address] [place], [address], 01/31/2025 13:46:54 02/01/20 25 01/31/2025 urina lysis panel , auto Unknown Analyte Negati ve Not Available [facility] Surgery Schedule [address] [place], [address], 01/31/2025 13:46:54 03/05/20 25 03/05/2025 urina lysis panel , auto Unknown Analyte Clean Catch Not Available [facility] [address], [place], [address], 03/05/2025 15:29:24 03/05/20 25 03/05/2025 urina lysis panel , auto Unknown Analyte Yellow Not Available [facility] [address], [place], [address], 03/05/2025 15:29:24 03/05/20 25 03/05/2025 urina lysis panel , auto Unknown Analyte Clear Not Available [facility] [address], [place], [address], 03/05/2025 15:29:24 03/05/20 25 03/05/2025 urina lysis panel , auto Unknown Analyte 1.025 Not Available [facility] [address], [place], [address], 03/05/2025 15:29:24 03/05/20 25 03/05/2025 urina lysis panel , auto Unknown Analyte 1.003 - 1.030 Not Available [facility] [address], [place], [address], 03/05/2025 15:29:24 03/05/20 25 03/05/2025 urina lysis panel , auto Unknown Analyte 5.0 Not Available [facility] [address], [place], [address], 03/05/2025 15:29:24 03/05/20 25 03/05/2025 urina lysis panel , auto Unknown Analyte 5.0 - 8.0 Not Available [facility] [address], [place], [address], 03/05/2025 15:29:24 03/05/20 25 03/05/2025 urina lysis panel , auto Unknown Analyte Negati ve Not Available [facility] [address], [place], [address], 03/05/2025 15:29:24 03/05/20 25 03/05/2025 urina lysis panel , auto Unknown Analyte Negati ve Not Available [facility] [address], [place], [address], 03/05/2025 15:29:24 03/05/20 25 03/05/2025 urina lysis panel , auto Unknown Analyte Negati ve Not Available [facility] [address], [place], [address], 03/05/2025 15:29:24 03/05/20 25 03/05/2025 urina lysis panel , auto Unknown Analyte Negati ve Not Available [facility] [address], [place], [address], 03/05/2025 15:29:24 03/05/20 25 03/05/2025 urina lysis panel , auto Unknown Analyte Trace Not Available [facility] [address], [place], [address], 03/05/2025 15:29:24 03/05/20 25 03/05/2025 urina lysis panel , auto Unknown Analyte Negati ve Not Available [facility] [address], [place], [address], 03/05/2025 15:29:24 03/05/20 25 03/05/2025 urina lysis panel , auto Unknown Analyte Normal Not Available [facility] [address], [place], [address], 03/05/2025 15:29:24 03/05/20 25 03/05/2025 urina lysis panel , auto Unknown Analyte Normal Not Available [facility] [address], [place], [address], 03/05/2025 15:29:24 03/05/20 25 03/05/2025 urina lysis panel , auto Unknown Analyte Negati ve Not Available [facility] [address], [place], [address], 03/05/2025 15:29:24 03/05/20 25 03/05/2025 urina lysis panel , auto Unknown Analyte Negati ve Not Available [facility] [address], [place], [address], 03/05/2025 15:29:24 03/05/20 25 03/05/2025 urina lysis panel , auto Unknown Analyte Normal Not Available [facility] [address], [place], [address], 03/05/2025 15:29:24 03/05/20 25 03/05/2025 urina lysis panel , auto Unknown Analyte Normal Not Available [facility] [address], [place], [address], 03/05/2025 15:29:24 03/05/20 25 03/05/2025 urina lysis panel , auto Unknown Analyte 1 mg/dL Not Available [facility] [address], [place], [address], 03/05/2025 15:29:24 03/05/20 25 03/05/2025 urina lysis panel , auto Unknown Analyte Negati ve Not Available [facility] [address], [place], [address], 03/05/2025 15:29:24 03/05/20 25 03/05/2025 urina lysis panel , auto Unknown Analyte Negati ve Not Available [facility] [address], [place], [address], 03/05/2025 15:29:24 03/05/20 25 03/05/2025 urina lysis panel , auto Unknown Analyte Negati ve Not Available [facility] [address], [place], [address], 03/05/2025 15:29:24 03/27/20 25 03/27/2025 urina lysis panel , auto Unknown Analyte Clean Catch Not Available [facility] With [address], [place], [address], 03/27/2025 14:04:44 03/27/20 25 03/27/2025 urina lysis panel , auto Unknown Analyte Yellow Not Available [facility] With [address], [place], [address], 03/27/2025 14:04:44 03/27/20 25 03/27/2025 urina lysis panel , auto Unknown Analyte Clear Not Available [facility] With [address], [place], [address], 03/27/2025 14:04:44 03/27/20 25 03/27/2025 urina lysis panel , auto Unknown Analyte 1.020 Not Available [facility] With [address], [place], [address], 03/27/2025 14:04:44 03/27/20 25 03/27/2025 urina lysis panel , auto Unknown Analyte 1.003 - 1.030 Not Available [facility] With [address], [place], [address], 03/27/2025 14:04:44 03/27/20 25 03/27/2025 urina lysis panel , auto Unknown Analyte 5.0 Not Available [facility] With [address], [place], [address], 03/27/2025 14:04:44 03/27/20 25 03/27/2025 urina lysis panel , auto Unknown Analyte 5.0 - 8.0 Not Available [facility] [place] With [address], [place], [address], 03/27/2025 14:04:44 03/27/20 25 03/27/2025 urina lysis panel , auto Unknown Analyte Negati ve Not Available [facility] With [address], [place], [address], 03/27/2025 14:04:44 03/27/20 25 03/27/2025 urina lysis panel , auto Unknown Analyte Negati ve Not Available [facility] With [address], [place], [address], 03/27/2025 14:04:44 03/27/20 25 03/27/2025 urina lysis panel , auto Unknown Analyte Negati ve Not Available [facility] With [address], [place], [address], 03/27/2025 14:04:44 03/27/20 25 03/27/2025 urina lysis panel , auto Unknown Analyte Negati ve Not Available [facility] With [address], [place], [address], 03/27/2025 14:04:44 03/27/20 25 03/27/2025 urina lysis panel , auto Unknown Analyte Negati ve Not Available [facility] With [address], [place], [address], 03/27/2025 14:04:44 03/27/20 25 03/27/2025 urina lysis panel , auto Unknown Analyte Negati ve Not Available [facility] [place] With [address], [place], [address], 03/27/2025 14:04:44 03/27/20 25 03/27/2025 urina lysis panel , auto Unknown Analyte Normal Not Available [facility] With [address], [place], [address], 03/27/2025 14:04:44 03/27/20 25 03/27/2025 urina lysis panel , auto Unknown Analyte Normal Not Available [facility] With [address], [place], [address], 03/27/2025 14:04:44 03/27/20 25 03/27/2025 urina lysis panel , auto Unknown Analyte Negati ve Not Available [facility] With [address], [place], [address], 03/27/2025 14:04:44 03/27/20 25 03/27/2025 urina lysis panel , auto Unknown Analyte Negati ve Not Available [facility] With [address], [place], [address], 03/27/2025 14:04:44 03/27/20 25 03/27/2025 urina lysis panel , auto Unknown Analyte Normal Not Available [facility] With [address], [place], [address], 03/27/2025 14:04:44 03/27/20 25 03/27/2025 urina lysis panel , auto Unknown Analyte Normal Not Available [facility] With [address], [place], [address], 03/27/2025 14:04:44 03/27/20 25 03/27/2025 urina lysis panel , auto Unknown Analyte Negati ve Not Available [facility] With [address], [place], [address], 03/27/2025 14:04:44 03/27/20 25 03/27/2025 urina lysis panel , auto Unknown Analyte Negati ve Not Available [facility] With [address], [place], [address], 03/27/2025 14:04:44 03/27/20 25 03/27/2025 urina lysis panel , auto Unknown Analyte Negati ve Not Available [facility] With [address], [place], [address], 03/27/2025 14:04:44 03/27/20 25 03/27/2025 urina lysis panel , auto Unknown Analyte Negati ve Not Available [facility] With [address] Hendrix [address], [place], [address], 03/27/2025 14:04:44 05/05/20 25 05/05/2025 urina lysis panel , auto Unknown Analyte Clean Catch Not Available [facility] [place] [address], [place], [address], 05/05/2025 16:22:07 05/05/20 25 05/05/2025 urina lysis panel , auto Unknown Analyte Yellow Not Available [facility] [address], [place], [address], 05/05/2025 16:22:07 05/05/20 25 05/05/2025 urina lysis panel , auto Unknown Analyte Clear Not Available [facility] [address], [place], [address], 05/05/2025 16:22:07 05/05/20 25 05/05/2025 urina lysis panel , auto Unknown Analyte 1.015 Not Available [facility] [address], [place], [address], 05/05/2025 16:22:07 05/05/20 25 05/05/2025 urina lysis panel , auto Unknown Analyte 1.003 - 1.030 Not Available [facility] [address], [place], [address], 05/05/2025 16:22:07 05/05/20 25 05/05/2025 urina lysis panel , auto Unknown Analyte 5.0 Not Available [facility] [address], [place], [address], 05/05/2025 16:22:07 05/05/20 25 05/05/2025 urina lysis panel , auto Unknown Analyte 5.0 - 8.0 Not Available [facility] [address], [place], [address], 05/05/2025 16:22:07 05/05/20 25 05/05/2025 urina lysis panel , auto Unknown Analyte Negati ve Not Available [facility] [address], [place], [address], 05/05/2025 16:22:07 05/05/20 25 05/05/2025 urina lysis panel , auto Unknown Analyte Negati ve Not Available [facility] [address], [place], [address], 05/05/2025 16:22:07 05/05/20 25 05/05/2025 urina lysis panel , auto Unknown Analyte Negati ve Not Available [facility] [address], [place], [address], 05/05/2025 16:22:07 05/05/20 25 05/05/2025 urina lysis panel , auto Unknown Analyte Negati ve Not Available [facility] [address], [place], [address], 05/05/2025 16:22:07 05/05/20 25 05/05/2025 urina lysis panel , auto Unknown Analyte Negati ve Not Available [facility] [address], [place], [address], 05/05/2025 16:22:07 05/05/20 25 05/05/2025 urina lysis panel , auto Unknown Analyte Negati ve Not Available [facility] [address], [place], [address], 05/05/2025 16:22:07 05/05/20 25 05/05/2025 urina lysis panel , auto Unknown Analyte Normal Not Available [facility] [address], [place], [address], 05/05/2025 16:22:07 05/05/20 25 05/05/2025 urina lysis panel , auto Unknown Analyte Normal Not Available [facility] [address], [place], [address], 05/05/2025 16:22:07 05/05/20 25 05/05/2025 urina lysis panel , auto Unknown Analyte Negati ve Not Available [facility] [address], [place], [address], 05/05/2025 16:22:07 05/05/20 25 05/05/2025 urina lysis panel , auto Unknown Analyte Negati ve Not Available [facility] [address], [place], [address], 05/05/2025 16:22:07 05/05/20 25 05/05/2025 urina lysis panel , auto Unknown Analyte Normal Not Available [facility] [address], [place], [address], 05/05/2025 16:22:07 05/05/20 25 05/05/2025 urina lysis panel , auto Unknown Analyte Normal Not Available [facility] [address], [place], [address], 05/05/2025 16:22:07 05/05/20 25 05/05/2025 urina lysis panel , auto Unknown Analyte Negati ve Not Available [facility] [address], [place], [address], 05/05/2025 16:22:07 05/05/20 25 05/05/2025 urina lysis panel , auto Unknown Analyte Negati ve Not Available [facility] [address], [place], [address], 05/05/2025 16:22:07 05/05/20 25 05/05/2025 urina lysis panel , auto Unknown Analyte Negati ve Not Available [facility] [address], [place], [address], 05/05/2025 16:22:07 05/05/20 25 05/05/2025 urina lysis panel , auto Unknown Analyte Negati ve Not Available [facility] [address], [place], [address], 05/05/2025 16:22:07 01/29/20 25 01/28/2025 XR, abdom en, 1 view No observ ation record ed. [email or web address] Not Available 01/19 10:51:08 05/07/20 25 05/05/2025 XR, abdom en, 1 view No observ ation record ed. [email or web address] [facility] [address] [facility] [address], [place], [address], 05/08/2025 15:48:32 06/18/20 25 06/18/2025 CT, brain , w/o contr ast No observ ation record ed. [email or web address] Not Available 2024 09:04:46 06/19/20 25 06/18/2025 stres s echoc ardio gram (PROC ) No observ ation record ed. [address] (Radiology) [address] [place] [address] [place], [address], 07/01/2025 09:04:31 06/19/20 25 06/19/2025 CT, angio gram, carot id arter ies, w/ contr ast No observ ation record ed. [address] (Radiology) [address] [place] [address] [place], [address], 07/01/2025 09:03:58 Result Notes None recorded. Problems Name Problem SNOMED Code Status Onset Date Resolution Date Notes Provider Name and Address Organization Details Recorded Time Urolithiasis 89613501 Active MEHUL Harrison - [facility] 8 13:42:46 Problem Notes None recorded. Procedures Surgical History Date Name Laterality Status Provider Name and Address Organization Details Recorded Time 05/05/20 25 Post Void Residual; Ultrasound completed [facility] 05/05/2025 16:47:03 01/22/20 25 Post Void Residual; Ultrasound completed [facility] 01/21/2025 10:54:51 08/20/20 21 Unlisted px femur/knee completed Murelene Oscar [facility] 09/16/2021 12:54:24 Appendectomy completed Murelene Oscar [facility] 03/16/2017 16:31:38 Kidney Stones completed Murelene Oscar [facility] 03/16/2017 16:31:46 Knee arthroscopy/[facility]urg [facility]il[facility]2020 14:13:46 Imaging Results None recorded. [...] Two times a day active Frequ ency: bid;Ken edyassine tion Descr iptio n: metfo rmin; Route [...] Updated DateTime 01/28/2025 175.26 cm 31.9 kg/m2 78880.95 g Olimpia Voss [facility] 01/28/2025 13:23:50 Date Recorded Body height Body mass index (BMI) Body weight Provider Name and Address Organization Details Last Updated DateTime 03/05/2025 175.26 cm 31.5 kg/m2 75549.17 g Avelino Villarreal [facility] 03/05/2025 15:33:56 Date Recorded Body height Body mass index (BMI) Body weight Provider Name and Address Organization Details Last Updated DateTime 03/27/2025 175.26 cm 31.9 kg/m2 34320.95 g Rica Huynh [facility] 03/27/2025 14:04:34 Date Recorded Body height Body mass index (BMI) Body weight Provider Name and Address Organization Details Last Updated DateTime 05/05/2025 175.26 cm 31.5 kg/m2 47291.17 g Avelino Soriashaw [facility] 05/05/2025 16:46:20 Social History Question Answer Notes LastModified by Organizat ion Details LastModified Time Tobacco Smoking Status Never Smoker [facility]2017 16:31:28 What Was The Date Of Your Most Recent Tobacco Screening? 05/05/2025 [email or web address] Information not available 05/05/2025 Sex: Unknown Functional [...] History Condition Response Diabetes Y Arthritis Y Kidney Stones Y Hypertension Y Sleep Apnea Y Immunizations Vaccine Type Date Status Note Provider Nam e and Address Organization Details Recorded Time Influenza, adjuvanted, trivalent, PF 7 completed Halie Valdivia [facility] 05/12/2025 16:16:53 Influenza, MDCK, quadrivalent, PF 8 completed Halie Valdivia [facility] 05/12/2025 16:16:53 zoster recombinant 5 completed Halie Valdivia [facility] 05/12/2025 16:16:53 Influenza, high-dose, quadrivalent, PF 0 completed Halie Valdivia [facility] 05/12/2025 16:16:53 Influenza, high-dose, quadrivalent, PF 1 completed Halie Valdivia [facility] 05/12/2025 16:16:53 Influenza, high-dose, quadrivalent, PF 2 completed Halie Skip [facility] 05/12/2025 16:16:53 Influenza, high-dose, quadrivalent, PF [facility] 16:16:53 COVID-19, mRNA, LNP-S, PF, 100 mcg/0.5mL dose or 50 mcg/0.25mL dose 1 completed Haliehector Marcanoong [facility] 05/12/2025 16:16:53 COVID-19, mRNA, LNP-S, PF, 100 mcg/0.5mL dose or 50 mcg/0.25mL dose 1 [facility]12[facility]25 16:16:53 Pneumococcal conjugate PCV 13 8 completed Halie [facility] 05/12/2025 16:16:53 Influenza, high-dose, trivalent, PF 4 completed [facility] 05/12/2025 16:16:53 Past Encounters Encounter ID Performer Location Encounter Start Date Encounter Closed Date Diagnosis/Indication Diagnosis SNOMED-CT Code Diagnosis ICD10 Code Diagnosis IMO Codes Diagnosis Note [id number] CORINA WELLS MD [facility] [address] [address] 03/16/2017 15:51:14 03/20/2017 15:22:54 Ureteric stone 10634779 N20.1 [id number] CORINA WELLS MD SURGERY SCHEDULE [address] [place] [address] 03/21/2017 12:57:34 03/21/2017 13:02:03 Ureteric stone 15608374 N20.1 [id number] CORINA WELLS MD [facility] [address] [address] 03/23/2017 14:23:50 03/24/2017 11:40:21 Ureteric stone 74157036 N20.1 [id number] CORINA WELLS MD [facility] [address],[place] [address] 8 06/22/2017 14:23:24 07/13/2017 13:02:35 Kidney stone 51172634 N20.0 Impotence of organic origin 448000682 N52.9 Benign pro static hyperplasia with outflow obstruction 019291906 N40.1 [id number] CORINA WELLS MD [facility] [address],[place] [address] 8 01/04/2018 14:14:24 01/11/2018 17:57:48 Kidney stone 53802466 N20.0 Benign pro static hyperplasia with outflow obstruction 933952739 N40.1 [id number] CORINA WELLS MD [facility] [address],[place] [address] 8 07/05/2018 13:12:15 07/11/2018 17:29:14 Kidney stone 78523046 N20.0 [id number] CORINA WELLS MD [facility] [address],[place] [address] 8 01/10/2019 12:52:02 01/21/2019 09:50:52 Benign prostatic hyperplasia with outflow obstruction 562278393 N40.1 Kidney stone 55497900 N2 0.0 [id number] CORINA WELLS MD [facility] [address],[place] [address] 8 03/28/2019 13:25:50 04/10/2019 10:43:45 Balanitis 52732095 N48.1 [id number] CORINA WELLS MD SURGERY SCHEDULE [address] [place] [address] 04/23/2019 12:57:41 04/23/2019 14:14:26 Postoperative pain 924043003 G89.18 [id number] CORINA WELLS MD [facility] [address],[place] [address] 8 05/30/2019 14:14:20 06/10/2019 08:25:49 Phimosis 706993182 N47.1 Kidney stone 78646201 N2 0.0 [id number] CORINA WELLS MD [place] [address] [place] [address] 8 06/11/2020 13:50:34 06/15/2020 07:52:45 Kidney stone 41428999 N20.0 [id number] CORINA WELLS MD [facility] [address] [place] [address] 8 06/24/2021 14:57:33 06/25/2021 17:04:03 Primary erectile dysfunction 922500185 N52.9 Kidney stone 78973641 N2 0.0 [id number] CORINA WELLS MD [facility] [address] [place] [address] 8 07/29/2021 13:48:44 07/30/2021 14:41:48 Ureteric stone 73194999 N20.1 Kidney stone 23230218 N2 0.0 Renal colic 7700248 N23 [id number] CORINA WELLS MD SURGERY SCHEDULE [address] [place] [address] 08/03/2021 14:28:30 08/03/2021 14:30:19 Ureteric stone 57974058 N20.1 [id number] CORINA WELLS MD [facility] [address] [place] [address] 8 09/16/2021 12:52:49 09/16/2021 13:12:02 Kidney stone 96731750 N20.0 Benign pro static hyperplasia with outflow obstruction 850164792 N40.1 [id number] CORINA WELLS MD [facility] [address] [place] [address] 8 03/24/2022 13:03:19 04/02/2022 15:41:22 Benign prostatic hyperplasia with outflow obstruction 158123506 N40.1 Kidney stone 68469834 N2 0.0 [id number] CORINA WELLS MD [facility] [address] [place] [address] 8 09/22/2022 13:16:17 09/29/2022 07:44:01 Benign prostatic hyperplasia with outflow obstruction 949159612 N40.1 Kidney stone 45472950 N2 0.0 [id number] CORINA WELLS MD [facility] [address] [address] 03/30/2023 13:46:10 03/31/2023 08:49:04 Benign prostatic hyperplasia with outflow obstruction 745040207 N40.1 Kidney stone 92578839 N2 0.0 Primary er ectile dysfunction 967865840 N52.9 [id number] CORINA WELLS MD [facility] [address] [address] [place] [address] 04/11/2024 14:13:38 04/11/2024 15:10:13 Primary erectile dysfunction 254122510 N52.9 Benign pro static hyperplasia with outflow obstruction 057139969 N40.1 [id number] CORINA WELLS MD [facility] [address] [place] [address],[address] [place] [address] 0 01/21/2025 10:29:11 01/21/2025 11:46:23 Benign prostatic hyperplasia with outflow obstruction 448907859 N40.1 Increase tamsulosin dose for symptom management . Continue monitoring for improvemen t. Consider surgery if symptoms persist. Kidney stone 38876570 N2 0.0 Plan for non-surgic al treatment to pass 3 mm stone. Pain management with analgesics . Surgery if stone does not pass naturally. [id number] CORINA WELLS MD [facility] [address] [facility] [address] [place] [address] 01/28/2025 11:09:13 01/28/2025 16:23:38 Benign prostatic hyperplasia with outflow obstruction 799440222 N40.1 Kidney stone 72734956 N2 0.0 [id number] RAKAN EARL MD SURGERY SCHEDULE [address] [place] [address] 01/31/2025 13:00:00 01/31/2025 13:01:39 [id number] RAKAN EARL MD [facility] [address] [facility],[address] [place] [address] 03/05/2025 14:37:20 03/05/2025 16:21:58 Kidney stone 14547354 N20.0 69089 Urge incon tinence of urine 47936679 N39.41 [id number] He will try the Gemtesa samples and follow-up with me in 1 month [id number] [facility] [address] [facility],[place] [address] 03/27/2025 13:21:22 03/27/2025 14:19:49 Benign prostatic hyperplasia with outflow obstruction 350240517 N40.1 N13.8 81919571 - Continue increased tamsulosin therapy. Monitor voiding symptoms. Urinary incontinence 165 370906 R32 00708342 - Stop Gemtesa. Increase tamsulosin to two daily. Ultrasound planned for bladder evaluation . Assess for structural issues. Kidney stone 41881948 N2 0.0 35539 - Follow-up post-ESWL. Evaluate interventi on outcome and check for recurring symptoms. [id number] CORINA WELLS MD [facility] [address] [facility] [place] [address] 05/05/2025 15:31:15 05/05/2025 16:49:56 Benign prostatic hyperplasia with outflow obstruction 035696638 N13.8 N40.1 64717789 - Continue tamsulosin 0.8 mg daily.- Discontinu e solifenaci n due to dizziness; initiate fesoterodi ne.- Consider cystscopy if symptoms persist. - Monitor urinary symptoms and adjust medication s as needed. Nocturia 561521602 R35.1 21317 - Addressed with medication adjustment s and monitoring . Kidney stone 45350921 N2 0.0 03701 - Follow-up post-ESWL. Evaluate interventi on outcome [...] Member ID Muhammad Member ID Guarantor Name 08/25/2025 1 [place] Addison Peguero [id number] Addison Peguero 07/31/2021 2 UNSPECIFIED REMIT PAYOR Addison Peguero 03/20/2017 1 *SELF PAY* Niyah Boswell McKee 01/31/2025 2 [employer] Addison Boswell McKee [id number] Addison Boswell McKee 01/31/2025 2 [employer] (MEDICARE SUPPLEMENT) Addison Peguero [id number] Addison Adamee 08/25/2025 2 [employer] (MEDICARE SUPPLEMENT) Addison Peguero [id number] Addison Peguero Notes Date Note Type Note [...] hematuria. No dysuria. - CT scan at [facility]: 3 mm kidney stone CORINA WELLS MD [address] [place] [address], [phone], [facility] 02/09/2025 13:45:17 03/05/2025 text/html Patient is here [...] until the recent days. RAKAN EARL MD [address] [place] [address], [phone], [facility] 03/06/2025 10:38:36 03/27/2025 text/html - The patient [...] Continues tamsulosin therapy noted. CORINA WELLS MD [address] [place] [address], [phone], [facility] 04/06/2025 15:12:32 05/05/2025 text/html The patient is [...] urine volume: 66 mL CORINA WELLS MD [address] [place] [address], [phone], [facility] 05/06/2025 21:24:04
--- NOTE | 2025-08-31 14:08 | ED_ITS ---
<Statement entered by Lorena Arias DO - 09/01/25 08:47> I was consulted by the DALILA, and we discussed the complexity of problems being addressed. I approved the treatment plan and management plan of this patient's care in the emergency department, thus performing a substantive portion of medical decision making. Lorena Arias DO Discharge Plan Disposition Chief Complaint: Altered Mental Status Discharge ED Provider: Mirna Sagastume General Adult HPI General Chief complaint: Altered Mental Status Stated complaint: AMS Time Seen by Provider: 08/31/25 13:58 History of Present Illness HPI narrative: patient is a 75-year-old male PMHx diabetes, HTN, GERD, dyspepsia, sleep apnea, chronic kidney disease who presents to the ED via EMS from the group home for AMS. PCP called the ED and reported that recently patient has been altered, has been increased on his Seroquel dose and is having difficulty swallowing, PCP concern for esophageal stricture. Patient has a fractured left humeral neck fracture on 08/28/2025 and is currently taking as needed oxycodone. Related Data Home Medications ?Medication ?Instructions ?Recorded ?Confirmed glipizide 10 mg tablet, extended 10 mg PO DAILY 08/20/25 release 24 hr tamsulosin 0.4 mg capsule 0.4 mg PO DAILY 07/25/2512/14 hydrocortisone 1 % topical cream 1 applic topical TID PRN 07/26/25 08/20/25 (Anti-Itch (hydrocortisone)) nystatin 100,000 unit/gram topical 1 applic topical TI D 07/26/25 08/20/25 powder pioglitazone 15 mg tablet 15 mg PO DAILY 07/26/2512/14 polyethylene glycol 3350 17 17 g PO DAILY 07/26/2512/14 gram/dose oral powder (Miralax) acetaminophen 325 mg tablet 650 mg PO Q6H PRN 08/04/25 08/20/25 allopurinol 100 mg tablet 100 mg PO DAILY 08/04/2512/14 docusate sodium 100 mg capsule 100 mg PO BID 08/04/25 08/20/25 famotidine 20 mg tablet 20 mg PO DAILY 08/04/2512/14 ondansetron 4 mg disintegrating 4 mg PO Q6H PRN 08/20/25 tablet Previous Rx's ?Medication ?Instructions ?Recorded diclofenac sodium 1 % topical gel 2 g topical BID #50 grams 07/26/25 hydrocodone 5 mg-acetaminophen 325 1 tab PO Q6H PRN pa in #120 tabs 07/26/25 mg tablet Allergies Allergy/AdvReac Type Severity Reaction Status Date / Time No Known Drug Allergies Allergy Verified 08/20/25 22:33 [facility] Disclaimer: The information contained in this section may have been updated after the patient was seen, as this information can be updated by other users. Medical History (Updated 08/28/25 @ 13:54 by Sav Junior MD) Dysphagia Otitis media Hyperuricemia Impingement of left shoulder Left shoulder pain Cervical spine disease Back pain Acute kidney injury superimposed on chronic kidney disease Chronic kidney disease Former cigarette smoker Obstructive sleep apnea Unsteadiness on feet Benign prostatic hyperplasia without lower urinary tract symptoms Muscle weakness (generalized) Primary generalized (osteo)arthritis Functional dyspepsia Gastro-esophageal reflux disease without esophagitis Essential (primary) hypertension Mild obstructive sleep apnea Hypo-osmolality and hyponatremia Dysphagia, pharyngoesophageal phase Atypical syncope Hypertension Diabetes mellitus Surgical History H/O lithotripsy History of shoulder surgery History of appendectomy History of total hip replacement Social History Smoking Status: Never smoker alcohol intake: never current occupational status: retired Travel in the last 8 weeks?: None housing: group home marital status: Have you lived/traveled outside [place] in past 30 days?: No Contact w/someone who lives/traveled outside US past 30 days?: No Exposure to someone with infectious disease in past 14 days?: No Do you have a fever (greater than 100.4 F or 38 C)?: No Have you tested positive for COVID-19?: No Exposed to someone with COVID-19 in past 14 days?: No Do you have a sore throat?: No Do you have a cough?: No Do you have any weakness?: No Do you have any diarrhea?: No Are you experiencing any unusual bleeding?: No Do you have any muscle aches/pain?: No Do you have any abdominal pain?: No Are you experiencing loss of taste or smell?: No Other Medical History Have you received the Flu Vaccine for this season: Yes Have you received the Pneumonia Vaccine: Yes (08/2018,06/26/25) ROS Obtained: Yes Systems reviewed as appropriate & no additional complaints except as documented Physical Exam General General appearance: alert ENT ENT exam: Present mucous membranes moist Neck Neck exam: Absent tenderness Respiratory Respiratory exam: Present normal lung sounds bilaterally Cardiovascular Cardiovascular exam: Present tachycardia Abdominal Exam Abdominal exam: Present soft Extremities Exam Extremities exam: Present other (sling on L arm ) Neurological Exam Neurological exam: Present alert; Absent oriented X3 Skin Skin exam: Present warm Medical Decision Making Medical Records Screening: Per USPSTF and CDC recommendations, given the prevalence of disease in our region, it is our hospital?s policy to screen for HIV and viral Hepatitis for all patients aged 18 and over and those with ongoing risk factors. [place] Inquiry Pt receiving controlled substance: No Vital Signs: 08/31/25 14:13 08/31/25 14:30 08/31/25 15:12 Temperature 98.3 F Temperature Source Rectal Pulse Rate 109 H 115 H Pulse Rate [Right] 115 H Respiratory Rate 20 24 9 L Blood Pressure 137/91 H 139/81 Blood Pressure [Right Arm] 162/110 H Blood Pressure Mean [Right Arm] 127 02 Sat by Pulse Oximetry 93 L 95 91 L Oxygen Delivery Method Room Air Room Air Room Air 08/31/25 15:30 08/31/25 16:00 Temperature Temperature Source Pulse Rate 110 H Pulse Rate [Right] Respiratory Rate 18 17 Blood Pressure 131/83 172/105 H Blood Pressure [Right Arm] Blood Pressure Mean [Right Arm] 02 Sat by Pulse Oximetry 95 Oxygen Delivery Method Room Air Room Air Lab Data Lab Results 08/31/25 14:09: Urine Color Yellow, Urine Appearance Clear, Urine pH 5.0, Ur Specific [place] >= 1.030, Urine Protein 2+ A, Urine Glucose (UA) Negative, Urine Ketones Negative, Urine Blood 2+ A, Urine Nitrate Negative, Urine Bilirubin 1+ A, Urine Urobilinogen 0.2, Ur Leukocyte Esterase Negative, Urine RBC 3-5, Urine WBC 10-20, Ur Squamous Epith Cells Occasional, Amorphous Sediment 1+, Urine Bacteria 3+, Urine Opiates Screen Negative, Urine Methadone Screen Negative, Ur Barbituates Screen Negative, Ur Phencyclidine Scrn Negative, Ur Amphetamines Screen Negative, U Benzodiazepines Scrn Negative, Urine Cocaine Screen Negative, U Marijuana (THC) Screen Negative 08/31/25 14:23: WBC 12.2 H, RBC 3.89 L, Hgb 11.8 L, Hct 34.9 L, MCV 89.7, MCH 30.3, MCHC 33.8, RDW 13.2, Plt Count 270, MPV 10.6 H, Neut % (Auto) 85.2 H, L ymph % (Auto) 6.5 L, [place] % (Auto) 7.4, Eos % (Auto) 0.2, Baso % (Auto) 0.3, N eut # (Auto) 10.4 H, Lymph # (Auto) 0.8, [place] # (Auto) 0.9, Eos # (Auto) 0.0, Baso # (Auto) 0.0, VBG pH 7.45 H, VBG pCO2 35.7, VBG pO2 66.8 H, VBG HCO3 24.3, VBG Total CO2 25.4, VBG O2 Saturation 93.2 H, VBG Base Excess 0.3, VBG Lactic Acid 1.9, Sodium 138, Potassium 4.2, Chloride 103, Carbon Dioxide 24, Anion Gap 15.2 H, BUN 54 H, Creatinine 2.00 H, Estimated Creat Clear 35, Estimated GFR 33 L, Est GFR ( Amer) 40 L, Glucose 165 H, Calcium 10.2, Magnesium 1.8, Total Bilirubin 1.3, AST 24, ALT 19, Alkaline Phosphatase 103, Troponin I 0.01, NT-Pro-B Natriuret Pep 356, Total Protein 6.4, Albumin 3.6, Globulin 2.8, Albumin/Globulin Ratio 1.3 08/31/25 14:23 08/31/25 14:23 Orders (Tests/Meds): ED MEDICATIONS Discontinued Medications Generic Name Dose Route Start Last Admin Trade Name Freq PRN Reason Stop Dose Admin Enoxaparin Sodium 80 mg 08/31/25 16:00 08/31/25 16:21 Enoxaparin 80mg/0.8ml Syringe SUBCUT 08/31/25 16:01 80 mg ONCE ONE Administration Lactated Ringer's 500 mls @ 999 mls/hr 08/31/25 14:04 08/31/25 15:59 Lactated Ringer's 1000 Ml Bag IV 08/31/25 14:34 Infused .Q31M ONE Infusion Iopamidol 70 ml 08/31/25 15:03 08/31/25 15:04 Iopamidol-370 (76%);100ml Bottle IV 08/31/25 15:04 70 ml ONCE ONE Administration Sodium Chloride 50 ml 08/31/25 15:03 08/31/25 15:04 0.9 % Sodium Chloride 50 Ml Vial IV 08/31/25 15:04 50 ml ONCE ONE Administration Sodium Chloride 10 ml 08/31/25 15:03 08/31/25 15:04 Sodium Chloride 0.9% 10ml Syr (Rad Only) IV 08/31/25 15:04 10 ml ONCE ONE Administration ORDERS Category Date Time Status CT angio chest PE protocol Stat Cat Scan 08/31/25 14:[address] head/brain wo con Stat Cat Scan 08/31/25 14:06 Completed CXR --portable [XR chest portable] Stat Exams 08/31/25 14:04 Completed BNP [NT Pro Brain Natriuretic Pep.] Stat Lab 08/31/25 14:23 Completed CBC w/Auto Diff [Complete Blood Count Auto Diff] Stat Lab 08/31/25 14:23 Completed CMP [Comprehensive Metabolic Panel] Stat Lab 08/31/25 14:23 Completed MAG [Magnesium] Stat Lab 08/31/25 14:23 Completed Trop I [Troponin I] Stat Lab 08/31/25 14:23 Completed Troponin I Q3H Lab 08/31/25 17:15 Ordered Troponin I Q3H Lab 08/31/25 20:15 Ordered UDS [Drug Screen,Urine] Stat Lab 08/31/25 14:09 Completed Urinalysis and Microscopic Stat Lab 08/31/25 14:09 Completed Blood Culture Stat Micro 08/31/25 14:33 Received Urine Culture Stat Micro 08/31/25 14:09 Received VBG [Venous Blood Gas] Stat RT 08/31/25 14:23 Completed Medical Decision Narrative: In summary, patient is a 75-year-old male PMHx diabetes, HTN, GERD, dyspepsia, sleep apnea, chronic kidney disease who presents to the ED via EMS from the group home for AMS. PCP called the ED and reported that recently patient has been altered, has been increased on his Seroquel dose and is having difficulty swallowing, PCP concern for esophageal stricture. Patient has a fractured left humeral neck fracture on 08/28/2025 and is currently taking as needed oxycodone. Upon initial evaluation patient is alert, follows some commands, he is hypertensive and tachycardic. He is not answering questions appropriately. He is currently in a sling and has stitches in his left knee. Pupils are equal and reactive. EMS reports that they administered 0.5mg Narcan due to pinpoint pupils. Differential diagnosis include AMS, ICH, stroke, ACS, pneumonia, pulmonary embolism, sepsis, among others. CBC remarkable for mild leukocytosis, WBC 12.2. Hemoglobin and hematocrit are stable. CMP remarkable for BUN 54, creatinine 2. Troponin < 0.01. Urinalysis reviewed after being obtained by cath urine, negative for nitrates, leuk esterase, noted to have 3+ bacteria. UDS unremarkable. VBG pH 7.45, pO2 66.8, lactic acid 1.9. Head CT shows no evidence of acute intracranial process. Chest CTA remarkable for bilateral subocclusive pulmonary emboli propagating from the main pulmonary arteries into the lobar and segmental branches of the right middle lobe and lower lobes bilaterally, there is right heart strain. I consulted Dr. Muñoz with cardiology, advises to administer Lovenox 1 mg/kg SQ twice daily. Called hospital medicine for admission, they accept patient to their services. I updated the family who is at bedside on patient's condition. Advised him that he will be admitted and possible thrombectomy tomorrow. Patient remains alert and stable during ED stay. Critical Care Critical Care Time Critical Care Time: No
--- NOTE | 2025-08-31 14:09 | CT_ITS ---
PROCEDURE INFORMATION: Exam: CTA Chest With Contrast Exam date and time: 08/31/2025 3:08 PM Age: 75 years old Clinical indication: Other: SOA, tachy, recent SX TECHNIQUE: Imaging protocol: Computed tomographic angiography of the chest with contrast. Exam focused on the arteries. 3D rendering (Not supervised by radiologist): MIP and/or 3D reconstructed images were created by the technologist. Radiation optimization: All CT scans at this facility use at least one of these dose optimization techniques: automated exposure control; mA and/or kV adjustment per patient size (includes targeted exams where dose is matched to clinical indication); or iterative reconstruction. Contrast material: ISO 370; Contrast volume: 70 ml; Contrast route: INTRAVENOUS (IV); COMPARISON: CR XR CHEST PORTABLE 08/31/2025 2:20 PM FINDINGS: Pulmonary arteries: Bilateral subocclusive pulmonary emboli propagating from the main pulmonary arteries into lobar and segmental branches of right middle lobe and lower lobes bilaterally. Aorta: Unremarkable. No aortic aneurysm. No aortic dissection. Lungs: No evidence of consolidation or interlobular septal thickening. Bibasilar subsegmental atelectasis noted. Pleural spaces: Unremarkable. No pneumothorax. No pleural effusion. Heart: Unremarkable. No cardiomegaly. No pericardial effusion. Heart RV/LV ratio: The RV LV ratio is 2.5 Coronary arteries: There is mild atherosclerotic calcification of the coronary arteries. Lymph nodes: Unremarkable. No enlarged lymph nodes. Bones/joints: Unremarkable. No acute fracture. Soft tissues: Unremarkable. IMPRESSION: 1. Bilateral subocclusive pulmonary emboli propagating from the main pulmonary arteries into lobar and segmental branches of right middle lobe and lower lobes bilaterally. 2. There is right heart strain
[2025-08-31 14:18] LABS: Microscopic, Urine URINE MICROSCOPIC (MICROSCOPIC)
[2025-08-31 14:20] LABS: Color,Urine YELLOW (Yellow); Glucose,Urine (UA) Negative (Negative); Ketones,Urine Negative (Negative); Leukocyte Esterase,Urine Negative (Negative); PH,Urine 5.0 (5.0-8.5); Protein,Urine 2+ (Negative); Specific Gravity, Urine >= 1.030 (1.005-1.030); Urobilinogen,Urine 0.2 EU/dl (0.2)
[2025-08-31 14:25] LABS: Bilirubin,Urine 1+ (Negative)
[2025-08-31 14:29] LABS: Amorphous Sediment,Urine 1+ /lpf; Bacteria,Urine 3+ /lpf; Squamous Epithelial Cell,Urine Occasional #/hpf (0-5)
[2025-08-31 14:36] LABS: Hematocrit 34.9 % (42.0-52.0); Hemoglobin 11.8 g/dL (14.1-18.0); Immature Granulocytes % 0.4 %; Mean Corpuscular HGB Conc 33.8 g/dL (31.8-35.4); Mean Corpuscular Hemoglobin 30.3 pg (27.0-31.2); Mean Corpuscular Volume 89.7 fl (80-94); Nucleated Red Blood Cells % 0 %; Platelet Count 270 K/mm3 (142-424); Red Blood Count 3.89 M/mm3 (4.60-6.20); Red Cell Distribution Width-SD 43.6 fL; White Blood Count 12.2 K/mm3 (4.8-10.8)
[2025-08-31 14:40] LABS: Lactate Venous 1.9 mmol/L (0.4-2.0); VBG HCO3 24.3 mmol/L (23-30); VBG PCO2 35.7 mmol/L (35-51); VBG PH 7.45 mmol/L (7.31-7.41); VBG PO2 66.8 mmol/L (28-40)
[2025-08-31 14:40] LABS: Amphetamine/Metha Screen,Urine Negative ng/ml (<1000)
[2025-08-31 14:41] LABS: Barbiturates Screen,Urine Negative ng/ml (<200); Benzodiazepines Screen,Urine Negative ng/ml (<200)
[2025-08-31 14:43] LABS: Methadone Screen,Urine Negative ng/ml (<300)
[2025-08-31 14:44] LABS: Opiate Screen,Urine Negative ng/ml (<300)
[2025-08-31 14:45] LABS: Phencyclidine Screen,Urine Negative ng/ml (<25)
[2025-08-31 14:47] LABS: Alanine Aminotransferase 19 U/L (12-78); Albumin Level 3.6 g/dl (3.5-5.0); Albumin/Globulin Ratio 1.3 (1.1-1.8); Alkaline Phosphatase 103 U/L (38-126); Anion Gap 15.2 mEq/L (5-15); Aspartate Amino Transferase 24 U/L (17-59); Bilirubin,Total 1.3 mg/dl (0.2-1.3); Blood Urea Nitrogen 54 mg/dl (9-20); Calcium 10.2 mg/dl (8.4-10.2); Carbon Dioxide 24 mmol/L (22.0-30.0); Chloride 103 mmol/L (98-107); Creatinine Clearance Estimated 35 mL/min (50-200); Creatinine,Serum 2.00 mg/dl (0.66-1.25); Estimated Glomerular Filt Rate 33 ml/min (>60); GFR (African American) 40 ML/MIN (>60); Globulin 2.8 g/dL (1.3-3.2); Glucose 165 mg/dl (74-100); Magnesium 1.8 mg/dl (1.6-2.3); Potassium 4.2 mmoL/L (3.5-5.1); Sodium 138 mmol/L (136-145); Total Protein,Serum 6.4 g/dl (6.3-8.2)
[2025-08-31 14:58] LABS: NT Pro Brain Natriuretic Pep. 356 pg/mL (0-450)
[2025-08-31 15:00] LABS: Troponin I 0.01 ng/ml (0.00-0.034)
[2025-08-31] MEDS: 0.9 % SODIUM CHLORIDE 50 ML VIAL IV (15:04)
[2025-08-31] MEDS: IOPAMIDOL-370 (76%);100ML BOTTLE 70 ML IV (15:04)
[2025-08-31] MEDS: SODIUM CHLORIDE 0.9% 10ML SYR (RAD ONLY) 10 ML IV (15:04)
[2025-08-31] MEDS: LACTATED RINGERS 1000ML 500 ML 999 ML IV (15:12)
--- NOTE | 2025-08-31 15:35 | PC.NURSE ---
shante manzo on phone with SAMMIE for critical finding
--- NOTE | 2025-08-31 15:40 | PC.NURSE ---
shante michelle on phone with bicycle designer
--- NOTE | 2025-08-31 16:11 | PC.NURSE ---
Patients family requested to speak with a provider. Provider notified.
--- NOTE | 2025-08-31 16:30 | PC.NURSE ---
spoke to house regarding a bed
--- NOTE | 2025-08-31 16:48 | PC.NURSE ---
report called to [facility]
--- NOTE | 2025-08-31 16:59 | PC.NURSE ---
arrived by stretcher from ED
[2025-08-31 17:55] LABS: Troponin I 0.02 ng/ml (0.00-0.034)
--- NOTE | 2025-08-31 18:20 | PC.NURSE ---
per pt daughter, arm sling and leg brace to be left on 12/06.
--- NOTE | 2025-08-31 20:45 | ECG_ITS ---
APPROVED REPORT Exam: Resting ECG HR:138 bpm ECG Measurements Heart Rate 138 AXES QRSd 142 QRS 102 QT 329 T -3 QTc 410 Conclusion ATRIAL FLUTTER/TACHYCARDIA WITH RAPID VENTRICULAR RESPONSE INTRAVENTRICULAR CONDUCTION DELAY [130+ ms QRS DURATION] POSSIBLE RIGHT VENTRICULAR HYPERTROPHY [SOME/ALL OF: PROMINENT R IN V1, LATE TRANSITION, RAD, BHAKTI, SSS] ABNORMAL ECG UNCONFIRMED REPORT Electronically signed by : Weston Wolf MD 09/01/2025 07:38:43
[2025-08-31 20:52] LABS: POC Glucose,Bedside 158 gm/dL (70-110)
[2025-08-31 20:53] LABS: Troponin I 0.12 ng/ml (0.00-0.034)
[2025-08-31] MEDS: humaLOG 100 UNITS/ML 10ML VIAL (SSI) SUBCUT (20:58)
[2025-08-31] MEDS: DIGOXIN 0.25MG/ML 2ML AMPUL 250 MCG IV (20:59)
--- NOTE | 2025-08-31 21:22 | PC.NURSE ---
Patient left floor with staff for ICU at 21:22.
[2025-08-31] MEDS: AMIODARONE HCL 150 MG in DEXTROSE 5 % IN WATER 100 ML 618 MG IV (21:32)
--- NOTE | 2025-08-31 21:44 | P.HP_ITS ---
<Statement entered by Shivam Rice MD - 09/01/25 17:39> Rounded on patient after nurse practitioner. Personally examined and interviewed patient. Agree with exam findings and care plan as documented. History of Present Illness *Admission Date: 08/31/25 *Reason for visit:: Confusion *History of present illness: This is a 75-year-old male with a past medical history of CKD, BPH, GERD, hypertension, DM2 resides in SNF increased confusion today. Was seen by Dr. Rice today and was noticed to have increased confusion while trying to put on his shirt. There was some questionable dysuria as patient could not give a complete ROS secondary to confusion. At time of his assessment he was conversant and appropriate responses and daughter was present for the visit. He has had recent issues with sensation of food being stuck in his esophagus while swallowing. Has a Holter monitor in place with close follow-up with cardiology.'s. Today he was sent to the emergency department for increased confusion that was attributed to possible increased Seroquel doses given continued confusion it was felt that he would benefit from further evaluation. Of note, left humeral fracture on 08/28/2025 that is nonoperative [facility] emergency department workup was obtained and subsequently patient was noted to have leukocytosis with white count of 12.2, stable CKD. UA positive for bacteria and white blood cells. CT imaging notable for bilateral subocclusive pulmonary emboli from the main pulmonary artery into the lobar and segmental branches of the right middle lobe and right lower lobe with evidence of heart strain. Dr. Muñoz was consulted in the emergency department and recommended therapeutic Lovenox and admission to the hospital with likely thrombectomy in AM. [facility] Disclaimer: The information contained in this section may have been updated after the patient was seen, as this information can be updated by other users. Medical History (Updated 09/01/25 @ 11:56 by Halie Hope APRN) Dysphagia Otitis media Hyperuricemia Impingement of left shoulder Left shoulder pain Cervical spine disease Back pain Acute kidney injury superimposed on chronic kidney disease Chronic kidney disease Former cigarette smoker Obstructive sleep apnea Unsteadiness on feet Benign prostatic hyperplasia without lower urinary tract symptoms Muscle weakness (generalized) Primary generalized (osteo)arthritis Functional dyspepsia Gastro-esophageal reflux disease without esophagitis Essential (primary) hypertension Mild obstructive sleep apnea Hypo-osmolality and hyponatremia Dysphagia, pharyngoesophageal phase Atypical syncope Hypertension Diabetes mellitus Surgical History H/O lithotripsy History of shoulder surgery History of appendectomy History of total hip replacement Social History Smoking Status: Never smoker alcohol intake: never current occupational status: retired Travel in the last 8 weeks?: None housing: [facility] marital status: Have you lived/traveled outside US in past 30 days?: No Contact w/someone who lives/traveled outside US past 30 days?: No Exposure to someone with infectious disease in past 14 days?: No Do you have a fever (greater than 100.4 F or 38 C)?: No Have you tested positive for COVID-19?: No Exposed to someone with COVID-19 in past 14 days?: No Do you have a sore throat?: No Do you have a cough?: No Do you have any weakness?: No Do you have any diarrhea?: No Are you experiencing any unusual bleeding?: No Do you have any muscle aches/pain?: No Do you have any abdominal pain?: No Are you experiencing loss of taste or smell?: No Other Medical History Have you received the Flu Vaccine for this season: Yes Have you received the Pneumonia Vaccine: No Review of Systems Review of Systems Review of systems:: pertinent systems reviewed and negative unless documented below Review of systems (narrative): Negative except for HPI Meds Home Medications and Allergies Home Medications ?Medication ?Instructions ?Recorded ?Confirmed ?Type glipizide 10 mg tablet, extended 10 mg PO DAILY 08/31/25 History release 24 hr tamsulosin 0.4 mg capsule 0.4 mg PO HS 07/25/25 History hydrocortisone 1 % topical cream 1 applic topical TIDP PRN itching 07/26/25 09/01/25 History (Anti-Itch (hydrocortisone)) nystatin 100,000 unit/gram topical 1 applic topical TI D 07/26/25 08/31/25 History powder pioglitazone 15 mg tablet 15 mg PO DAILY 07/26/2508/20 History polyethylene glycol 3350 17 17 g PO DAILY 07/26/2511/13 History gram/dose oral powder (Miralax) acetaminophen 325 mg tablet 650 mg PO Q6HP PRN Mild Pa in 08/04/25 09/01/25 History (Scale Score 1-4) allopurinol 100 mg tablet 100 mg PO DAILY 08/04/2511/13 History docusate sodium 100 mg capsule 100 mg PO BID 08/04/25 08/31/25 History famotidine 20 mg tablet 20 mg PO DAILY 08/04/2508/20 History ondansetron 4 mg disintegrating 4 mg PO Q8HP PRN nause a 08/04/25 09/01/25 History tablet aspirin 81 mg tablet 81 mg PO DAILY 08/31/2508/20 History hydrocodone 5 mg-acetaminophen 325 1 tab PO Q6HP PRN M oderate Pain 09/01/25 09/01/25 History mg tablet (Scale Score 5-6) quetiapine 25 mg tablet 25 mg PO HS 09/01/25 5 History New Prescriptions to Start Prescriptions: Allergies Allergy/AdvReac Type Severity Reaction Status Date / Time No Known Drug Allergies Allergy Verified 08/20/25 22:33 Exam Data for Last 24 hours Vital signs and Labs for Last 24 Hours: Temp Pulse Resp BP Pulse Ox O2 Del Method 98.3 F 143 H 18 131/98 H 90 L Room Air 08/31/25 16:45 08/31/25 20:59 08/31/25 20:00 08/31/25 20:00 08/31/25 20:00 08/31/25 21:00 Laboratory Results - last 24 hr 08/31/25 14:09: Urine Color Yellow, Urine Appearance Clear, Urine pH 5.0, Ur Specific [place] >= 1.030, Urine Protein 2+ A, Urine Glucose (UA) Negative, Urine Ketones Negative, Urine Blood 2+ A, Urine Nitrate Negative, Urine Bilirubin 1+ A, Urine Urobilinogen 0.2, Ur Leukocyte Esterase Negative, Urine RBC 3-5, Urine WBC 10-20, Ur Squamous Epith Cells Occasional, Amorphous Sediment 1+, Urine Bacteria 3+, Urine Opiates Screen Negative, Urine Methadone Screen Negative, Ur Barbituates Screen Negative, Ur Phencyclidine Scrn Negative, Ur Amp hetamines Screen Negative, U Benzodiazepines Scrn Negative, Urine Cocaine Screen Negative, U Marijuana (THC) Screen Negative 08/31/25 14:23: WBC 12.2 H, RBC 3.89 L, Hgb 11.8 L, Hct 34.9 L, MCV 89.7, MCH 30.3, MCHC 33.8, RDW 13.2, Plt Count 270, MPV 10.6 H, Neut % (Auto) 85.2 H, Lymph % (Auto) 6.5 L, [place] % (Auto) 7.4, Eos % (Auto) 0.2, Baso % (Auto) 0.3, Neut # (Auto) 10.4 H, Lymph # (Auto) 0.8, [place] # (Auto) 0.9, Eos # (Auto) 0.0, Baso # (Auto) 0.0, VBG pH 7.45 H, VBG pCO2 35.7, VBG pO2 66.8 H, VBG HCO3 24.3, VBG Total CO2 25.4, VBG O2 Saturation 93.2 H, VBG Base Excess 0.3, VBG Lactic Acid 1.9, Sodium 138, Potassium 4.2, Chloride 103, Carbon Dioxide 24, Anion Gap 15.2 H, BUN 54 H, Creatinine 2.00 H, Estimated Creat Clear 35, Estimated GFR 33 L, Est GFR ( Amer) 40 L, Glucose 165 H, Calcium 10.2, Magnesium 1.8, Total Bilirubin 1.3, AST 24, ALT 19, Alkaline Phosphatase 103, Troponin I 0.01, NT-Pro-B Natriuret Pep 356, Total Protein 6.4, Albumin 3.6, Globulin 2.8, Al bumin/Globulin Ratio 1.3 08/31/25 17:25: Troponin I 0.02 08/31/25 20:14: Troponin I 0.12 H 08/31/25 20:42: POC Glucose 158 H I & O for Last 24 hours: Intake & Output 08/28/25 08/29/25 08/30/25 08/31/25 23:59 23:59 23:59 23:59 Intake Total 500 / 500 Balance 500 / 500 Weight 79.379 kg Constitutional Constitutional: no acute distress *Routine HEENT Exam Head: Present normocephalic Eye: Present EOMI and PERRL ENT: Present mucous membranes moist *Routine Neck Exam Neck: Present supple; Absent lymphadenopathy *Routine Respiratory Exam Respiratory: Present CTA bilaterally *Routine Cardiovascular Exam Cardiovascular: Present RRR *Routine Abdominal Exam Abdominal: Present soft and normoactive bowel sounds; Absent tenderness *Routine Rectal Exam Rectal:: deferred *Routine Genitalia Exam Genitalia:: deferred *Routine Extremities Exam Extremities: Absent cyanosis, clubbing or edema *Routine Skin Exam Skin: Present warm; Absent rash *Routine Neurological Exam Neurological: Present alert and oriented X3 Assessment and Plan *Assessment and plan (1) Pulmonary embolism with acute cor pulmonale: Status: Acute Qualifiers: Chronicity: acute Category: Medical Code(s): I26.09 - Other pulmonary embolism with acute cor pulmonale (2) Acute metabolic encephalopathy: Status: Acute Category: Medical Code(s): G93.41 - Metabolic encephalopathy (3) Sepsis due to urinary tract infection: Status: Acute Category: Medical Code(s): A41.9 - Sepsis, unspecified organism; N39.0 - Urinary tract infection, site not specified (4) Closed fracture of left proximal humerus: Status: Acute Qualifiers: Encounter type: sequela Category: Medical Code(s): S42.A - Unspecified fracture of upper end of left humerus, initial encounter for closed fracture (5) Gastro-esophageal reflux disease without esophagitis: Status: Acute Category: Medical Code(s): K21.9 - Gastro-esophageal reflux disease without esophagitis (6) Diabetes mellitus: Status: Acute Category: Medical Code(s): E11.9 - Type 2 diabetes mellitus without complications (7) CKD (chronic kidney disease), stage III: Status: Acute Category: Medical Code(s): N18.30 - Chronic kidney disease, stage 3 unspecified Plan #Pulmonary embolism with acute cor pulmonale CT imaging with subocclusive pulmonary embolus to the right lobar middle and lower lobes with evidence of right heart strain. Initial troponin negative but now uptrend by 0.12. BNP of 356 PESI Score of 133 Oxygenating well on room air at this time. No tachypnea or distress noted. Cardiology consulted, will continue with therapeutic Lovenox and plan for likely thrombectomy in a.m. Echocardiogram in a.m. Bilateral extremity DVT ultrasounds in a.m. to rule out other clot burden #Atrial flutter/sinus tachycardia Initial heart rate of 110 on admission with increase up to 150. No distress noted. Consulted with Dr. Muñoz with cardiology. Digoxin 0.25 mg IV given x 1 amio load and infusion initiated. Heart rate improved into the 120s after treatment modalities Continue cardiac monitoring #Sepsis due to urinary tract infection Meets SIRS criteria for leukocytosis, tachycardia and urinalysis with WBCs and +3 bacteria Some SIRS data may be secondary to acute pulmonary embolus but nonetheless cannot rule out infection as causative source Blood cultures obtained. Received 1 L normal saline bolus in the emergency department. Will defer further fluid secondary to right heart strain from PE Initiate Rocephin, follow-up urine culture #Acute metabolic encephalopathy Likely multifactorial given UTI but also increased Seroquel dosing. Also has been on oxycodone for left upper extremity fracture. Orientation has improved upon admission. Reorient as needed. Treat infection as above #DM2 with complications of CKD stage IIIb Hold oral antidiabetics at this time Will initiate sliding scale insulin Renal function stable with creatinine of 2.0 #Left humeral fracture Subacute. Was seen 3 days ago for fall and treated nonoperatively Continue left upper extremity sling and swath Continue oral pain medications Full code DVT PPx on therapeutic Lovenox N.p.o. after
[2025-08-31] MEDS: AMIODARONE HCL 900 MG in DEXTROSE 5 % IN WATER 500 ML 34.53 MG IV (21:46)
--- NOTE | 2025-08-31 22:03 | PC.NURSE ---
Patient admitted to ICU via [facility] bed @21:24
--- NOTE | 2025-08-31 22:20 | PC.NURSE ---
Addendum entered by Carol Anders RN 09/01/25 04:39: Amio gtt titrated to 0.5mg/min @0346 Original Note: This RN to room 218 to transport pt to ICU rm 264. New IV started to right forearm. Report received from Jenny Rodriguez RN. Amio bolus admin per JAN. Finished @2142. Amio main. gtt started @2145 @1mg/min, per JAN. Current HR 125.
[2025-08-31] MEDS: HYDROCODONE/APAP 5/325 MG TABLET 1 TAB PO (23:25)
[2025-09-01] VITALS (33 sets, daily range): BP systolic 98–189; BP diastolic 66–94; PULSE 71–125; RESP 14–26; TEMP 36.1–37.4; O2SAT 93–99; BMI 26.3
[2025-09-01 01:05] LABS: NT Pro Brain Natriuretic Pep. 882 pg/mL (0-450)
[2025-09-01 01:12] LABS: Troponin I 0.25 ng/ml (0.00-0.034)
--- NOTE | 2025-09-01 03:10 | PC.NURSE ---
Pt grimacing, moaning, and holding left arm. Not time for another dose of [place] at this time. Notified Andreia Sanchez APRN for additional pain medication, and pt repositioned.
[2025-09-01] MEDS: MORPHINE 2MG/ML SYRINGE 2 MG IV (03:24)
[2025-09-01] MEDS: ONDANSETRON 4MG/2ML VIAL 4 MG IV (03:24)
--- NOTE | 2025-09-01 04:00 | PC.NURSE ---
Addendum entered by Carol Anders RN 09/01/25 05:48: michael catheter unclamped Original Note: Pt noted to have 200 ml UO since tranfer to ICU. Bladder distended. Bladder scan completed and showed >971ml. Andreia Sanchez APRN notified. Order placed to insert michael catheter. Michael was inserted with no issues, 1550ml dark yellow-reina colored urine drained. Michael clamped after large amount drained. Andreia Sanchez APRN notified.
--- NOTE | 2025-09-01 04:14 | ECG_ITS ---
APPROVED REPORT Exam: Resting ECG HR:106 bpm ECG Measurements Heart Rate 106 AXES HI 165 P 33 QRSd 146 QRS 87 QT 388 T -26 QTc 450 Conclusion SINUS TACHYCARDIA INTRAVENTRICULAR CONDUCTION DELAY [130+ ms QRS DURATION] POSSIBLE RIGHT VENTRICULAR HYPERTROPHY [SOME/ALL OF: PROMINENT R IN V1, LATE TRANSITION, RAD, BHAKTI, SSS] ABNORMAL ECG UNCONFIRMED REPORT Electronically signed by : Weston Wolf MD 09/01/2025 07:38:38
[2025-09-01 05:55] LABS: Hematocrit 32.7 % (42.0-52.0); Hemoglobin 11.0 g/dL (14.1-18.0); Immature Granulocytes % 0.9 %; Mean Corpuscular HGB Conc 33.6 g/dL (31.8-35.4); Mean Corpuscular Hemoglobin 30.1 pg (27.0-31.2); Mean Corpuscular Volume 89.3 fl (80-94); Nucleated Red Blood Cells % 0 %; Platelet Count 278 K/mm3 (142-424); Red Blood Count 3.66 M/mm3 (4.60-6.20); Red Cell Distribution Width-SD 43.8 fL; White Blood Count 10.2 K/mm3 (4.8-10.8)
[2025-09-01 05:58] LABS: Chloride 103 mmol/L (98-107); Potassium 4.0 mmoL/L (3.5-5.1); Sodium 138 mmol/L (136-145)
[2025-09-01 06:01] LABS: Anion Gap 16.0 mEq/L (5-15); Blood Urea Nitrogen 63 mg/dl (9-20); Calcium 10.3 mg/dl (8.4-10.2); Carbon Dioxide 23 mmol/L (22.0-30.0); Creatinine Clearance Estimated 34 mL/min (50-200); Creatinine,Serum 2.10 mg/dl (0.66-1.25); Estimated Glomerular Filt Rate 31 ml/min (>60); GFR (African American) 37 ML/MIN (>60); Glucose 175 mg/dl (74-100); Magnesium 1.9 mg/dl (1.6-2.3)
[2025-09-01 06:24] LABS: POC Glucose,Bedside 173 gm/dL (70-110)
[2025-09-01] MEDS: humaLOG 100 UNITS/ML 10ML VIAL (SSI) SUBCUT (06:27)
--- NOTE | 2025-09-01 07:00 | CA_ITS ---
FINAL REPORT CLINICAL HISTORY: PE, bilateral lower extremity edema FINDINGS: DUPLEX VENOUS SONOGRAPHY OF THE BILATERAL LOWER EXTREMITIES Multiple transverse and longitudinal scans were performed of the femoropopliteal deep venous systems, with augmentation and compression maneuvers. FINDINGS: Left popliteal was not scanned secondary to knee immobilizer. Normal phasic flow was noted in the visualized deep venous systems. No intraluminal increased echogenicity is noted to suggest thrombus. There is normal compression and augmentation of the venous structures. No abnormal venous collaterals are seen. IMPRESSION: No evidence of deep venous thrombosis of the bilateral lower extremities. Limited evaluation of the left popliteal vein. Reviewed, Interpreted and Dictated by Daniela Benoit MD Transcribed by Lisha Zavala Authenticated and . [facility]
--- NOTE | 2025-09-01 07:00 | CA_ITS ---
APPROVED REPORT EXAM: Comprehensive 2D, Doppler, and color-flow Echocardiogram [employer]: Marlen MorrisAUSTYN Ht: 5 ft 9 in Wt: 175lbs BSA: 1.95 BP: 131/98 mmHg Indications: PE WITH STRAIN ON CT,A FLUTTER 2D Dimensions LA Volume 25.20 mL LA Volume Index 12.92 mL/m2 (M/F) 16-34 M-Mode Dimensions RVDd 2.20 cm (0.9-2.6) LA Diam 3.26 cm (1.9-4.0) LVDd 4.29 cm (3.5-5.7) LVDs 3.11 cm (3.5-5.7) IVSd 0.95 cm (0.6-1.1) PWd 0.80 cm (0.6-1.1) EF (Teich) 53.80% FS 27.50% EDV (Teich) 82.60 mL TAPSE 2.26 (<1.7) ESV (Teich) 38.20 mL Aortic Valve JIMENA Index 1.36 cm2/m2 AoV Peak Wiley. 112.0 (50-130 cm/s) AO Peak GR. 5.00 mmHg AO Mean GR. 2.40 (<5 mmHg) AO VTI 15.5 (18-25 cm) JIMENA (VTI) 2.71 (2.5-4.5 cm2) Pulmonary Valve PV Peak Velocity 56.0 (50-150 cm/s) Tricuspid Valve TR P. Velocity 383.00 cm/s RAP Estimate 8.00 mmHg RVSP 66.60 mmHg Left Ventricle The left ventricle is normal size. Left ventricular systolic function is normal. The left ventricular ejection fraction is within the normal range. There is increased left ventricular wall thickness. Septal flattening is present, consistent with right-sided pressure/volume overload. The left ventricular diastolic function is indeterminate. LVEF is 55% Right Ventricle The right ventricle is severely dilated. The right ventricular systolic function is moderately reduced. There is severe RV free wall hypokinesis with sparing of the apex (Gomez's sign). Atria The left atrium is mildly dilated. The right atrium is mildly dilated. There is no color Doppler evidence of interatrial shunt. Aortic Valve The aortic valve is mildly thickened. There is no hemodynamically significant aortic valvular stenosis. Trace aortic regurgitation is present. Mitral Valve The mitral valve is normal in structure. No evidence of mitral valve stenosis. Trace mitral regurgitation is present. Tricuspid Valve The tricuspid valve leaflets are thin and pliable. Moderate tricuspid regurgitation. RVSP > 60 mmHg. Pulmonic Valve The pulmonary valve is grossly normal in structure. Mild pulmonic valve regurgitation is present. Great Vessels The aortic root is normal in size. The ascending aorta is mildly dilated, measuring 3.8 cm in diameter. IVC is normal in size and collapses >50% with inspiration. Pericardium There is no pericardial effusion. Other Information Study Quality: Fair Conclusion Normal LV systolic function. Septal flattening is present, consistent with right-sided pressure/volume overload. Severe RV dilation with moderate reduction in RV function. There is severe RV free wall hypokinesis with sparing of the apex (Gomez's sign). Biatrial dilation. Moderate TR. Mild PI. Markedly elevated RVSP > 60 mmHg. Electronically signed by : Skyla Pereira MD 09/01/2025 13:11:11
--- NOTE | 2025-09-01 07:58 | P.CONPHA_ITS ---
Pharmacy Intervention Comments: MEDICATION RECONCILIATION COMPLETED ON PATIENT USING MAR FROM [facility]. -CORNELIA BERRY, AMYD
--- NOTE | 2025-09-01 07:58 | HMH.PHAINT1 ---
Pharmacy Intervention Comments: MEDICATION RECONCILIATION COMPLETED ON PATIENT USING MAR FROM [facility] TER[facility]. -CORNELIA BERRY, AMYD
--- NOTE | 2025-09-01 09:19 | SW/DCPLANNER ---
Addendum entered by Gabby Browning 09/03/25 10:45: Patient will return to [facility] level of care today. Addendum entered by Gabby Browning 09/01/25 13:45: Updated patient information faxed to Samantha Sharp. Original Note: Patient is currently ICF level of care at [facility] in [place]. Updated patient information will be faxed to Samantha Sharp. PT is recommended SNF level of care at time of discharge. I have updated Samantha regarding this situation. Discharge date is unknown at this time. CM will continue to follow up.
--- NOTE | 2025-09-01 10:09 | HMH.PTEV ---
Physical Therapy Evaluation Rehab PT IP Evaluation Start: 08/31/25 18:47 Freq: ONCE Status: Active Protocol: Document 09/01/25 09:58 MIRTHA (Rec: 09/01/25 10:09 MIRTHA [id number]) Subjective/History History History Per H&P: This is a 75-year-old male with a past medical history of CKD, BPH, GERD, hypertension, DM2 resides in SNF increased confusion today. Was seen by Dr. Rice today and was noticed to have increased confusion while trying to put on his shirt. There was some questionable dysuria as patient could not give a complete ROS secondary to confusion. At time of his assessment he was conversant and appropriate responses and daughter was present for the visit. He has had recent issues with sensation of food being stuck in his esophagus while swallowing. Has a Holter monitor in place with close follow-up with cardiology.' s. Today he was sent to the emergency department for increased confusion that was attributed to possible increased Seroquel doses given continued confusion it was felt that he would benefit from further evaluation. Of note, left humeral fracture on 08/28/2025 that is nonoperative [facility] emergency department workup was obtained and subsequently patient was noted to have leukocytosis with white count of 12.2, stable CKD. UA positive for bacteria and white blood cells. CT imaging notable for bilateral subocclusive pulmonary emboli from the main pulmonary artery into the lobar and segmental branches of the right middle lobe and right lower lobe with evidence of heart strain. Dr. Muñoz was consulted in the emergency department and recommended therapeutic Lovenox and admission to the hospital with likely thrombectomy in AM. Subjective Subjective I'm so sorry I'm late Pt is very pleasant but perseverating on being late Pt currently resides at a intermediate. [facility] How much help from another person do you currently need... Turning from your A lot back to your side while in a flat bed without using bedrails? Moving from lying on A lot back to sitting on the side of a flat bed without using bedrails? Moving to and from a Total bed to a chair ( including a wheelchair)? Standing up from a Total chair using your arms? (e.g., wheelchair, bedside chair) Walking in hospital Total room? Climbing 3-5 steps Total with a railing? Mobility Score 8 Mobility Level [place] Mobility 3 Sit at edge of bed Mobility Calculator Rehab PT IP Eval Objective Appearance Patient Behavior Confused Ambulation Patient Able to No Ambulate Balance Ability to Arise Unable Transfers Bed Transfer Ability Maximum x 2 (75% assist) Rehab PT IP prob,goals,plan Problems Date of Evaluation: 09/01/25 PT IP Problems Bed Mobility,Transfers,Gait,Balance,Self care,Safety Rehab Potential Rehab Potential Good Plan PT Intervention Plan Bed Mobility,Transfers,Gait,Balance,Self care,Safety, Therapeutic Exercise Other Intervention 1-2 times Plan PT Plan Frequency Daily Duration LOS Discharge Goals Bed Transfer Ability Maximum x 1 (75% assist) Sit to Stand Chair Maximum x 1 (75% assist) Transfer Ability Discharge Plan PT Discharge Plan Pt presents below his baseline in functional mobility. Pt would benefit from skilled acute care PT while at [facility] to address deficits and prevent further functional decline. Pt most appropriate for skilled inpatient rehab placement upon d/c from [facility]. Eval Complexity Eval Charge Codes 07316 - Moderate Complexity PHYSICIAN CERTIFICATION: I certify the specified therapy services for Addison Peguero are required, authorized, and reviewed every 30 days.
--- NOTE | 2025-09-01 10:22 | IR_ITS ---
APPROVED REPORT Patient Location: Inpatient PROCEDURES Right femoral vein access Catheter placed in the right pulmonary artery Right pulmonary artery selective angiogram Mechanical thrombectomy to the right main pulmonary artery right middle pulmonary artery and right lower pulmonary artery Catheter placement in the left pulmonary artery Left pulmonary artery selective angiogram Mechanical thrombectomy to the left main and left lower pulmonary artery INDICATION Submassive pulmonary embolism, Right ventricular strain Informed consent was obtained prior to the procedure. COMPLICATIONS NONE Estimated Blood Loss: LESS THAN 10 ML TECHNIQUE 1% lidocaine used to size the right groin the right femoral vein was accessed via the central technique and a 7 Italian sheath is placed in the right femoral vein. This was upsized to a 16 Italian sheath which was advanced under fluoroscopic guidance into the superior and inferior vena cava junction. An angled pigtail catheter was advanced and then used to cannulate the right pulmonary artery. An Amplatz wire was advanced which allowed the sheath to be advanced into the main pulmonary artery. Pigtail angiography was performed in the right pulmonary artery. Therapeutic heparin was administered given a therapeutic ACT. Following this a mechanical aspiration flash catheter was advanced into the right lower pulmonary artery and used to perform embolectomy. This was pulled back into the right middle and main pulmonary artery. Post embolectomy angiography demonstrated wide patency of the pulmonary artery. This technique was repeated in the left pulmonary artery and left lower pulmonary artery subsegmental branch. After achieving excellent angiographic results the apparatus was removed the sheath was removed and hemostasis was achieved using Z stitch and manual pressure patient was transferred to the postop boarding in stable condition. 400 cc of blood was lost during the procedure IMPRESSION Submassive pulmonary emboli in the right main right middle and right lower pulmonary artery with successful mechanical thrombectomy removing all angiographically visible thrombus Submassive pulmonary emboli in the left main pulmonary artery extending into the left lower pulmonary artery with successful mechanical thrombectomy removing all angiographically visible thrombus PLAN 1. Recheck labs in the morning 2. Start Xarelto 15 twice daily and continue for 3 weeks followed by 15 mg a day thereafter based on renal dysfunction Electronically signed by : Mark Muñoz MD 09/01/2025 12:48:37
--- NOTE | 2025-09-01 10:35 | HMH.OTEV ---
OT Evaluation Rehab OT IP Evaluation Start: 08/31/25 17:58 Freq: ONCE Status: Active Protocol: [facility]25 10[facility]31 [facility] (Rec: 09/01/25 10:35 [facility] [id number]) Rehab OT IP Assessment Subjective History Per H&P: This is a 75-year-old male with a past medical history of CKD, BPH, GERD, hypertension, DM2 resides in SNF increased confusion today. Was seen by Dr. Rice today and was noticed to have increased confusion while trying to put on his shirt. There was some questionable dysuria as patient could not give a complete ROS secondary to confusion. At time of his assessment he was conversant and appropriate responses and daughter was present for the visit. He has had recent issues with sensation of food being stuck in his esophagus while swallowing. Has a Holter monitor in place with close follow-up with cardiology.' s. Today he was sent to the emergency department for increased confusion that was attributed to possible increased Seroquel doses given continued confusion it was felt that he would benefit from further evaluation. Of note, left humeral fracture on 08/28/2025 that is nonoperative [facility] emergency department workup was obtained and subsequently patient was noted to have leukocytosis with white count of 12.2, stable CKD. UA positive for bacteria and white blood cells. CT imaging notable for bilateral subocclusive pulmonary emboli from the main pulmonary artery into the lobar and segmental branches of the right middle lobe and right lower lobe with evidence of heart strain. Dr. Muñoz was consulted in the emergency department and recommended therapeutic Lovenox and admission to the hospital with likely thrombectomy in AM. Subjective Pt oriented to self, however he kept repeating his first name. Unable to answer orientation questions. Pt polite but very confused. Pt currently resides at a [facility]. Objective Patient Orientation Person Bed Mobility bed mobility-scooting,bed mobility - rolling Assist Level Maximum x 2 (75% assist) Rehab OT IP prob,goals,plan Problems Date of Evaluation: 09/01/25 OT IP Problems Bed Mobility,Transfers,Balance,Self care,Safety Rehab Potential Rehab Potential Fair Equipment Needs Assistive Devices Wheelchair Plan OT intervention Plan Bed Mobility,Transfers,Balance,Self care,Safety, Therapeutic Exercise OT Plan Frequency Daily Duration LOS Discharge Goals Bed Mobility Ability Assistance x1 Sit to Stand Chair Maximum x 1 (75% assist) Transfer Ability Chair Transfer Maximum x 1 (75% assist) Ability Chair Transfer Stand Pivot Technique Lower Body Dressing Maximum Assistance Ability Upper Body Dressing Maximum Assistance Ability Performing Toilet Maximum Assistance Hygiene Ability Overall Commode/ Maximum Assistance Toilet Transfer Ability Commode/Toilet Stand Pivot Transfer Technique Discharge Plan OT Discharge Plan Pt will continue to be seen for OT services while at [facility]. Pt would benefit most returning to SNF for short term rehab due to a significant decline in functional ability. Continued skilled therapy services are important in order for patient to improve strength, safety, endurance, ADL independence, and functional transfers to reach OF. Eval Complexity Eval Charge Codes 18639 - Moderate Complexity PHYSICIAN CERTIFICATION: I certify the specified therapy services for Addison Peguero are required, authorized, and reviewed every 30 days.
--- NOTE | 2025-09-01 10:41 | PC.NURSE ---
pt daughter (POA) at bedside with AISHA Brooks for Thrombectomy Consent. consent signed and placed on the chart at this time
[2025-09-01 11:04] LABS: POC Glucose,Bedside 111 gm/dL (70-110)
[2025-09-01] MEDS: HEPARIN 1,000 UNITS/500ML NS (CATH LAB) 3000 UNIT IV (11:04)
[2025-09-01] MEDS: 0.9 % SODIUM CHLORIDE 500 ML 25 ML IV (11:05)
[2025-09-01] MEDS: LIDOCAINE 1% 10ML MDV 10 ML IJ (11:05)
[2025-09-01] MEDS: MIDAZOLAM HCL 1MG/ML 5ML VIAL 1 MG IV (11:06)
[2025-09-01] MEDS: FENTANYL 100MCG/2ML VIAL 50 MCG IV (11:06)
[2025-09-01] MEDS: HEPARIN 1,000 UNITS/ML 10ML VIAL (CATH LAB) 5000 UNIT IV (11:45)
--- NOTE | 2025-09-01 11:52 | EXP.CARD.CON ---
History of Present Illness History of Present Illness Consult date: 09/01/25 Requesting physician: Shivam Rice Chief complaint: Altered mental status History of present illness: This is a 75-year-old gentleman who presented to the emergency department with altered mental status. The patient was having confusion while putting on his shirt and also some questionable dysuria. The patient could not complete a review of systems because of his confusion. The patient had recently had his dose of Seroquel increased which may have been causing his confusion. Upon arrival to the emergency department he was found to have a white count of 12.2 and stable chronic kidney disease. His UA was positive for bacteria and white blood cells. He did get short of breath while here at the hospital and CT of the chest did show bilateral subocclusive pulmonary emboli from the main pulmonary artery into the lobar and segmental branches of the right middle lobe and right lower lobe with evidence of right heart strain. The patient was then subsequently admitted to the hospital. He was treated with therapeutic Lovenox and is scheduled to undergo thrombectomy today. During my examination of the patient he is slightly confused but he is able to answer all of my questions appropriately. He denies any chest pain or pressure. He denies any shortness of breath or edema. He denies any fever, chills, nausea, vomiting, diarrhea, PND or orthopnea. [facility] Disclaimer: The information contained in this section may have been updated after the patient was seen, as this information can be updated by other users. Medical History (Updated 09/01/25 @ 11:56 by Halie Hope APRN) Dysphagia Otitis media Hyperuricemia Impingement of left shoulder Left shoulder pain Cervical spine disease Back pain Acute kidney injury superimposed on chronic kidney disease Chronic kidney disease Former cigarette smoker Obstructive sleep apnea Unsteadiness on feet Benign prostatic hyperplasia without lower urinary tract symptoms Muscle weakness (generalized) Primary generalized (osteo)arthritis Functional dyspepsia Gastro-esophageal reflux disease without esophagitis Essential (primary) hypertension Mild obstructive sleep apnea Hypo-osmolality and hyponatremia Dysphagia, pharyngoesophageal phase Atypical syncope Hypertension Diabetes mellitus Surgical History H/O lithotripsy History of shoulder surgery History of appendectomy History of total hip replacement Social History Smoking Status: Never smoker alcohol intake: never current occupational status: retired Travel in the last 8 weeks?: None housing: snf marital status: Have you lived/traveled outside [place] in past 30 days?: No Contact w/someone who lives/traveled outside US past 30 days?: No Exposure to someone with infectious disease in past 14 days?: No Do you have a fever (greater than 100.4 F or 38 C)?: No Have you tested positive for COVID-19?: No Exposed to someone with COVID-19 in past 14 days?: No Do you have a sore throat?: No Do you have a cough?: No Do you have any weakness?: No Do you have any diarrhea?: No Are you experiencing any unusual bleeding?: No Do you have any muscle aches/pain?: No Do you have any abdominal pain?: No Are you experiencing loss of taste or smell?: No Review of Systems Review of Systems Review of systems:: pertinent systems reviewed and negative unless documented below Constitutional Constitutional: Reports system reviewed and no additional complaints, except as documented Eyes Eyes: Reports system reviewed and no additional complaints, except as documented ENT Ears, Nose, Mouth, and Throat: Reports system reviewed and no additional complaints, except as documented *Cardiovascular Cardiovascular: Reports system reviewed and no additional complaints, except as documented *Respiratory Respiratory: Reports system reviewed and no additional complaints, except as documented *Gastrointestinal Gastrointestinal: Reports system reviewed and no additional complaints, except as documented *Genitourinary Genitourinary: Reports system reviewed and no additional complaints, except as documented *Musculoskeletal Musculoskeletal: Reports system reviewed and no additional complaints, except as documented Integumentary/Breasts Skin/Breast: Reports system reviewed and no additional complaints, except as documented *Neurologic Neurologic: Reports system reviewed and no additional complaints, except as documented and Reports confusion Psychiatric Psychiatric: Reports system reviewed and no additional complaints, except as documented and Reports confusion Endocrine Endocrine: Reports system reviewed and no additional complaints, except as documented Hematologic/Lymphatic Hematologic/Lymphatic: Reports system reviewed and no additional complaints, except as documented Allergic/Immunologic Allergic/Immunologic: Reports system reviewed and no additional complaints, except as documented Exam Data for Last 24 hours Vital signs and Labs for Last 24 Hours: Temp Pulse Resp BP Pulse Ox O2 Del Method 98.4 F 101 H 24 138/87 94 L Room Air 09/01/25 10:00 09/01/25 10:00 09/01/25 10:00 09/01/25 10:00 09/01/25 10:00 09/01/25 10:00 Laboratory Results - last 24 hr 08/31/25 14:09: Urine Color Yellow, Urine Appearance Clear, Urine pH 5.0, Ur Specific [place] >= 1.030, Urine Protein 2+ A, Urine Glucose (UA) Negative, Urine Ketones Negative, Urine Blood 2+ A, Urine Nitrate Negative, Urine Bilirubin 1+ A, Urine Urobilinogen 0.2, Ur Leukocyte Esterase Negative, Urine RBC 3-5, Urine WBC 10-20, Ur Squamous Epith Cells Occasional, Amorphous Sediment 1+, Urine Bacteria 3+, Urine Opiates Screen Negative, Urine Methadone Screen Negative, Ur Barbituates Screen Negative, Ur Phencyclidine Scrn Negative, Ur Amphetamines Screen Negative, U Benzodiazepines Scrn Negative, Urine Cocaine Screen Negative, U Marijuana (THC) Screen Negative 08/31/25 14:23: WBC 12.2 H, RBC 3.89 L, Hgb 11.8 L, Hct 34.9 L, MCV 89.7, MCH 30.3, MCHC 33.8, RDW 13.2, Plt Count 270, MPV 10.6 H, Neut % (Auto) 85.2 H, Lymph % (Auto) 6.5 L, [place] % (Auto) 7.4, Eos % (Auto) 0.2, Baso % (Auto) 0.3, Neut # (Auto) 10.4 H, Lymph # (Auto) 0.8, [place] # (Auto) 0.9, Eos # (Auto) 0.0, Baso # (Auto) 0.0, VBG pH 7.45 H, VBG pCO2 35.7, VBG pO2 66.8 H, VBG HCO3 24.3, VBG Total CO2 25.4, VBG O2 Saturation 93.2 H, VBG Base Excess 0.3, VBG Lactic Acid 1.9, Sodium 138, Potassium 4.2, Chloride 103, Carbon Dioxide 24, Anion Gap 15.2 H, BUN 54 H, Creatinine 2.00 H, Estimated Creat Clear 35, Estimated GFR 33 L, Est GFR ( Amer) 40 L, Glucose 165 H, Calcium 10.2, Magnesium 1.8, Total Bilirubin 1.3, AST 24, ALT 19, Alkaline Phosphatase 103, Troponin I 0.01, NT-Pro-B Natriuret Pep 356, Total Protein 6.4, Albumin 3.6, Globulin 2.8, Albumin/Globulin Ratio 1.3 08/31/25 17:25: Troponin I 0.02 08/31/25 20:14: Troponin I 0.12 H 08/31/25 20:42: POC Glucose 158 H 09/01/25 00:25: Troponin I 0.25 H, NT-Pro-B Natriuret Pep 882 H 09/01/25 05:35: WBC 10.2, RBC 3.66 L, Hgb 11.0 L, Hct 32.7 L, MCV 89.3, MCH 30.1, MCHC 33.6, RDW 13.3, Plt Count 278, MPV 10.7 H, Neut % (Auto) 83.4 H, Lymph % (Auto) 8.2 L, [place] % (Auto) 6.9, Eos % (Auto) 0.3, Baso % (Auto) 0.3, Neut # (Auto) 8.5 H, Lymph # (Auto) 0.8, [place] # (Auto) 0.7, Eos # (Auto) 0.0, Baso # (Auto) 0.0, Sodium 138, Potassium 4.0, Chloride 103, Carbon Dioxide 23, Anion Gap 16.0 H, BUN 63 H, Creatinine 2.10 H, Estimated Creat Clear 34, Estimated GFR 31 L, Est GFR ( Amer) 37 L, Glucose 175 H, Calcium 10.3 H, Magnesium 1.9 09/01/25 06:16: POC Glucose 173 H 09/01/25 10:51: POC Glucose 111 H I & O for Last 24 hours: Intake & Output 08/29/25 08/30/25 08/31/25 09/01/25 23:59 23:59 23:59 23:59 Intake Total 703 / 703 207.18 / 207.18 Output Total 200 / 200 1950 / 1950 Balance 503 / 503 -1742.82 / -1742.82 Weight 177 lb 11.081 oz 177 lb 11.081 oz Constitutional Constitutional: no acute distress and average body habitus *Routine HEENT Exam Head: Present normocephalic and atraumatic ENT: Present mucous membranes moist *Routine Neck Exam Neck: Present supple, full ROM and normal carotid upstroke; Absent JVD, carotid bruit or lymphadenopathy *Routine Respiratory Exam Respiratory: Present CTA bilaterally, normal respiratory effort, able to speak in complete sentences and symmetric chest movement *Routine Cardiovascular Exam Cardiovascular: Present RRR, Normal S1 and Normal S2; Absent murmur or gallop *Routine Abdominal Exam Abdominal: Present soft and normoactive bowel sounds; Absent tenderness, distended or organomegaly *Routine Extremities Exam Extremities: Present full ROM, pulses intact and normal capillary refill; Absent cyanosis, clubbing or edema *Routine Skin Exam Skin: Present intact and warm; Absent erythema *Routine Neurological Exam Neurological: Present alert, oriented X3 and CN II-XII intact; Absent sensory deficit or motor deficit Routine Psychiatric Exam Psychiatric: Present normal affect Meds Home Medications and Allergies Home Medications ?Medication ?Instructions ?Recorded ?Confirmed ?Type glipizide 10 mg tablet, extended 10 mg PO DAILY 07/25/25 08/31/25 History release 24 hr tamsulosin 0.4 mg capsule 0.4 mg PO HS 07/25/25 09/01/25 History hydrocortisone 1 % topical cream 1 applic topical TIDP PRN itching 07/26/25 09/01/25 History (Anti-Itch (hydrocortisone)) nystatin 100,000 unit/gram topical 1 applic topical TID 07/26/25 08/31/25 History powder pioglitazone 15 mg tablet 15 mg PO DAILY 07/26/25 08/31/25 History polyethylene glycol 3350 17 17 g PO DAILY 07/26/25 08/31/25 History gram/dose oral powder (Miralax) acetaminophen 325 mg tablet 650 mg PO Q6HP PRN Mild Pain 08/04/25 09/01/25 History (Scale Score 1-4) allopurinol 100 mg tablet 100 mg PO DAILY 08/04/25 08/31/25 History docusate sodium 100 mg capsule 100 mg PO BID 08/04/25 08/31/25 History famotidine 20 mg tablet 20 mg PO DAILY 08/04/25 08/31/25 History ondansetron 4 mg disintegrating 4 mg PO Q8HP PRN nausea 08/04/25 09/01/25 History tablet aspirin 81 mg tablet 81 mg PO DAILY 08/31/25 08/31/25 History hydrocodone 5 mg-acetaminophen 325 1 tab PO Q6HP PRN Moderate Pain 09/01/25 09/01/25 History mg tablet (Scale Score 5-6) quetiapine 25 mg tablet 25 mg PO HS 09/01/25 09/01/25 History New Prescriptions to Start Prescriptions: Allergies Allergy/AdvReac Type Severity Reaction Status Date / Time No Known Drug Allergies Allergy Verified 08/20/25 22:33 Assessment and Plan *Assessment and plan (1) Pulmonary embolism with acute cor pulmonale: Status: Acute Qualifiers: Chronicity: acute Pulmonary embolism type: unspecified Qualified Code(s): I26.09 - Other pulmonary embolism with acute cor pulmonale Category: Medical Code(s): I26.09 - Other pulmonary embolism with acute cor pulmonale (2) Confusion: Status: Acute Category: Medical Code(s): R41.0 - Disorientation, unspecified (3) Sepsis due to urinary tract infection: Status: Acute Category: Medical Code(s): A41.9 - Sepsis, unspecified organism; N39.0 - Urinary tract infection, site not specified (4) CKD (chronic kidney disease), stage III: Status: Acute Qualifiers: Chronic kidney disease stage 3 subtype: unspecified whether 3a or 3b Qualified Code(s): N18.30 - Chronic kidney disease, stage 3 unspecified Category: Medical Code(s): N18.30 - Chronic kidney disease, stage 3 unspecified (5) Diabetes mellitus: Status: Acute Qualifiers: Diabetes mellitus complication status: without complication Diabetes mellitus terminal gauger insulin use: without terminal gauger use Diabetes mellitus type: type 2 Qualified Code(s): E11.9 - Type 2 diabetes mellitus without complications Category: Medical Code(s): E11.9 - Type 2 diabetes mellitus without complications (6) Acute metabolic encephalopathy: Status: Acute Category: Medical Code(s): G93.41 - Metabolic encephalopathy Plan Plan: 1. The patient was admitted to the hospital due to altered mental status. They are concerned that this may have occurred because of his recently increased dose of Seroquel. Will defer this to the hospitalist. 2. The patient was found to have bilateral subocclusive pulmonary emboli from the main pulmonary arteries into lobar and segmental branches of the right middle lobe and lower lobes bilaterally. There was evidence of right heart strain. The patient will undergo thrombectomy today due to his bilateral subocclusive pulmonary emboli. 3. The patient and his daughter have been educated the risk and benefits of proceeding with thrombectomy. The patient and his daughter both verbalized understanding and are agreeable in proceeding with the procedure. 4. The patient will be n.p.o. in preparation for thrombectomy. 5. Echocardiogram has been obtained to evaluate his LV function and evaluate his right heart strain. 6. His blood pressure is well-controlled. 7. His LDL goal is less than 100. Will get a lipid panel in the morning. 8. The patient is diabetic. He will need aggressive control of his diabetes. Will defer to the hospitalist. 9. Further recommendations was made pending the patient's response to treatment and the results of his thrombectomy and echocardiogram today. Thank you for the opportunity to help participate in the care of this patient. All recommendations and orders are per Dr. Pereira.
[2025-09-01] MEDS: IOPAMIDOL-370 (76%);100ML BOTTLE 105 ML IV (12:25)
--- NOTE | 2025-09-01 14:21 | PC.NURSE ---
Z-Stitch removed at this time. no bleeding noted. new dressing included a gauze pad and tegaderm. dressing remained clean, dry and intact. pt tolerated well.
[2025-09-01 16:29] LABS: POC Glucose,Bedside 145 gm/dL (70-110)
--- NOTE | 2025-09-01 17:16 | EXP.ACUTE.PN ---
Subjective *Date: 09/01/25 *Time: 17:48 Interval history: Alert and oriented to self. Stable on room air but remained tachycardic this morning. Cardiology taking for thrombectomy. Echo obtained. Afebrile. Family at bedside Medical Exam Vital signs and Labs for Last 24 Hours: Vital Signs Temp Pulse Pulse Pulse Resp BP BP 09/01/25 14:55 71 15 137/84 09/01/25 14:25 80 15 138/71 09/01/25 14:00 85 15 09/01/25 13:55 74 15 135/80 09/01/25 13:25 75 17 133/77 09/01/25 13:10 98.1 F 84 17 130/80 09/01/25 13:00 09/01/25 12:55 85 17 127/86 09/01/25 12:40 97.7 F 88 17 142/89 H 09/01/25 12:25 85 16 188/90 H 09/01/25 12:20 88 16 179/85 H 09/01/25 12:15 84 16 173/83 H 09/01/25 12:10 82 16 188/91 H 09/01/25 12:07 97 F L 87 87 14 189/91 H 09/01/25 10:00 98.4 F 101 H 24 138/87 09/01/25 09:00 09/01/25 08:31 98.2 F 100 H 18 132/89 09/01/25 08:00 99 H 18 09/01/25 08:00 99 H 09/01/25 08:00 98.4 F 102 H 19 124/86 09/01/25 06:58 09/01/25 06:00 98.4 F 99 H 18 105/73 L 09/01/25 05:45 98.2 F 99 H 17 116/80 09/01/25 05:01 98.4 F 100 H 18 122/91 H 09/01/25 05:00 09/01/25 04:37 98.4 F 102 H 19 101/68 L 09/01/25 04:08 107 H 18 98/70 L 09/01/25 04:00 103 H 09/01/25 04:00 98.2 F 108 H 19 134/80 09/01/25 03:00 09/01/25 02:00 114 H 09/01/25 02:00 114 H 26 H 166/89 H 09/01/25 01:00 119 H 25 H 159/94 H 09/01/25 01:00 09/01/25 00:00 124 H 09/01/25 00:00 97.9 F 125 H 24 136/85 08/31/25 23:00 08/31/25 21:45 98.5 F 126 H 24 146/97 H 08/31/25 21:42 130 H 08/31/25 21:00 08/31/25 20:59 143 H 08/31/25 20:00 143 H 08/31/25 20:00 134 H 18 131/98 H 08/31/25 19:38 130 H 08/31/25 18:39 Pulse Ox O2 Del Method 09/01/25 14:55 98 Room Air 09/01/25 14:25 98 Room Air 09/01/25 14:00 Room Air 09/01/25 13:55 98 Room Air 09/01/25 13:25 98 Room Air 09/01/25 13:10 98 Room Air 09/01/25 13:00 Room Air 09/01/25 12:55 97 Room Air 09/01/25 12:40 97 Room Air 09/01/25 12:25 96 Room Air 09/01/25 12:20 96 Room Air 09/01/25 12:15 96 Room Air 09/01/25 12:10 96 Room Air 09/01/25 12:07 93 L Room Air 09/01/25 10:00 94 L Room Air 09/01/25 09:00 Room Air 09/01/25 08:31 95 Room Air 09/01/25 08:00 Room Air 09/01/25 08:00 09/01/25 08:00 96 Room Air 09/01/25 06:58 Room Air 09/01/25 06:00 95 Room Air 09/01/25 05:45 95 Room Air 09/01/25 05:01 95 Room Air 09/01/25 05:00 Room Air 09/01/25 04:37 95 Room Air 09/01/25 04:08 95 Room Air 09/01/25 04:00 09/01/25 04:00 95 Room Air 09/01/25 03:00 Room Air 09/01/25 02:00 Room Air 09/01/25 02:00 97 Room Air 09/01/25 01:00 96 Room Air 09/01/25 01:00 Room Air 09/01/25 00:00 09/01/25 00:00 97 Room Air 08/31/25 23:00 Room Air 08/31/25 21:45 94 L Room Air 08/31/25 21:42 08/31/25 21:00 Room Air 08/31/25 20:59 08/31/25 20:00 Room Air 08/31/25 20:00 90 L Room Air 08/31/25 19:38 08/31/25 18:39 Room Air Intake and Output 09/01/25 09/01/25 09/01/25 07:59 15:59 23:59 Intake Total 207.18 / 207.18 Output Total 175 / 5 425 / 2175 Balance -1542.82 / -1966.82 -425 / -1966. Intake: Intake, Total IV Amount 207.18 / 207.18 Amiodarone HCl 900 mg In 207.18 / .18 Dextrose 5 % in Water 500 ml @ 1 MG/MIN 34.533 mls/hr IV . Q15H1M [facility] Rx#:[id number] Output: Output, Urine Amount 225 / 225 Output, Urine Amount (Catheter) 1749 James 1749 Other: Number of Unmeasured Voids 0 Weight 80.6 kg 80.6 kg Patient Weight 09/01/25 23:59 Weight 80.6 kg Laboratory Results - last 24 hr 08/31/25 17:25: Troponin I 0.02 08/31/25 20:14: Troponin I 0.12 H 08/31/25 20:42: POC Glucose 158 H 09/01/25 00:25: Troponin I 0.25 H, NT-Pro-B Natriuret Pep 882 H 09/01/25 05:35: WBC 10.2, RBC 3.66 L, Hgb 11.0 L, Hct 32.7 L, MCV 89.3, MCH 30.1, MCHC 33.6, RDW 13.3, Plt Count 278, MPV 10.7 H, Neut % (Auto) 83.4 H, Lymph % (Auto) 8.2 L, [place] % (Auto) 6.9, Eos % (Auto) 0.3, Baso % (Auto) 0.3, Neut # (Auto) 8.5 H, Lymph # (Auto) 0.8, [place] # (Auto) 0.7, Eos # (Auto) 0.0, Baso # (Auto) 0.0, Sodium 138, Potassium 4.0, Chloride 103, Carbon Dioxide 23, Anion Gap 16.0 H, BUN 63 H, Creatinine 2.10 H, Estimated Creat Clear 34, Estimated GFR 31 L, Est GFR ( Amer) 37 L, Glucose 175 H, Calcium 10.3 H, Magnesium 1.9 09/01/25 06:16: POC Glucose 173 H 09/01/25 10:51: POC Glucose 111 H 09/01/25 16:07: POC Glucose 145 H I & O for Labs for Last 24 Hours: Intake & Output 08/29/25 08/30/25 08/31/25 09/01/25 23:59 23:59 23:59 23:59 Intake Total 703 / 703 207.18 / 207.18 Output Total 200 / 200 2175 / 2175 Balance 503 / 503 -1967.82 / -1966.82 Weight 80.6 kg 80.6 kg Microbiology Reports for the Last 24 Hours: Microbiology 08/31/25 14:33 Blood Blood Culture - Preliminary NO GROWTH AFTER 24 HOURS 08/31/25 14:28 Blood Blood Culture - Preliminary NO GROWTH AFTER 24 HOURS Constitutional: Present mild distress, average body habitus, chronically ill appearing and cooperative Head: Present atraumatic and normocephalic Respiratory: Absent rhonchi, wheezes or crackles Cardiac: Present Tachycardia GI: Present soft; Absent distention Comment:: Left arm in sling, tender to palpation around shoulder Neuro: Present Grossly Intact, alert, awake and moves all extremities Comment:: Oriented to self Assessment and Plan *Assessment and plan (1) Pulmonary embolism with acute cor pulmonale: Status: Acute Qualifiers: Pulmonary embolism type: unspecified Chronicity: acute Qualified Code(s): I26.09 - Other pulmonary embolism with acute cor pulmonale Category: Medical Code(s): I26.09 - Other pulmonary embolism with acute cor pulmonale (2) Acute metabolic encephalopathy: Status: Acute Category: Medical Code(s): G93.41 - Metabolic encephalopathy (3) Sepsis due to urinary tract infection: Status: Acute Category: Medical Code(s): A41.9 - Sepsis, unspecified organism; N39.0 - Urinary tract infection, site not specified (4) Closed fracture of left proximal humerus: Status: Acute Qualifiers: Encounter type: sequela Category: Medical Code(s): S42.202A - Unspecified fracture of upper end of left humerus, initial encounter for closed fracture (5) Gastro-esophageal reflux disease without esophagitis: Status: Acute Category: Medical Code(s): K21.9 - Gastro-esophageal reflux disease without esophagitis (6) Diabetes mellitus: Status: Acute Qualifiers: Diabetes mellitus type: type 2 Diabetes mellitus longterm insulin use: without terminal makeup operator use Diabetes mellitus complication status: without complication Qualified Code(s): E11.9 - Type 2 diabetes mellitus without complications Category: Medical Code(s): E11.9 - Type 2 diabetes mellitus without complications (7) CKD (chronic kidney disease), stage III: Status: Acute Qualifiers: Chronic kidney disease stage 3 subtype: unspecified whether 3a or 3b Qualified Code(s): N18.30 - Chronic kidney disease, stage 3 unspecified Category: Medical Code(s): N18.30 - Chronic kidney disease, stage 3 unspecified Plan 75-year-old who presented with worsening confusion. Found to have UTI. Concern for metabolic cephalopathy secondary to infection. Also found to have bilateral submassive PEs with right heart strain. Taken to [facility] for thrombectomy today. Cardiology assisting with care. Continue antibiotics for UTI. Continues to require inpatient management. Problems addressed as follows: #Pulmonary embolism with acute cor pulmonale # Atrial flutter CT imaging with subocclusive pulmonary embolus to the right lobar middle and lower lobes with evidence of right heart strain. - Echo obtained today with the following: Normal LV systolic function, septal flattening is present consistent with right-sided pressure volume overload. Severe RV dilation with moderate reduction in RV function. Markedly elevated RVSP greater than 60 mmHg. - Thrombectomy performed. Submassive PE in the right main right middle and right lower pulmonary artery successfully removed. Also removed submassive pulmonary emboli in the left main pulmonary artery extending into the left lower pulmonary artery. Patient had improvement and hemodynamics with improvement in heart rate shortly after procedure - Initiate Xarelto 15 mg twice daily for 3 weeks followed by 15 mg a day thereafter based on renal function -Discontinue Lovenox - proBNP elevated at 880 - Finishing amiodarone load and drip. Will transition to 40 mg twice daily this evening. Downgrade to [facility] - PESI Score of 133 -Discussed case with cardiology, will monitor after initiation of anticoagulation orally. If doing well tomorrow, consider discharge back to his facility. - Continue telemetry #Sepsis due to urinary tract infection Meets SIRS criteria for leukocytosis, tachycardia and urinalysis with WBCs and +3 bacteria Some SIRS data may be secondary to acute pulmonary embolus but nonetheless cannot rule out infection as causative source Blood cultures obtained. Received 1 L normal saline bolus in the emergency department. Will defer further fluid secondary to right heart strain from PE Continue Rocephin 1 g daily, urine culture still #Acute metabolic encephalopathy Likely multifactorial given UTI but also increased Seroquel dosing. Also has been on oxycodone for left upper extremity fracture. Orientation still not back to baseline. Continue with daily reorientation. Treating infection as above. Monitor for improvement. 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 Creatinine stable at 2.1 BUN 63, repeat CBC, CMP, magnesium ordered for the morning #Left humeral fracture Subacute. Was seen 3 days ago for fall and treated nonoperatively Continue left upper extremity sling and swath Continue oral pain medications Full code DVT PPx on therapeutic Lovenox Diabetic diet
[2025-09-01 20:14] LABS: POC Glucose,Bedside 149 gm/dL (70-110)
[2025-09-01] MEDS: QUETIAPINE 25MG TABLET 25 MG PO (20:20)
[2025-09-01] MEDS: TAMSULOSIN 0.4MG CAPSULE 0.4 MG PO (20:20)
[2025-09-01] MEDS: AMIODARONE 200MG TABLET 400 MG PO (20:20)
[2025-09-01 23:16] LABS: POC Glucose,Bedside 242 gm/dL (70-110)
[2025-09-02] VITALS (16 sets, daily range): BP systolic 113–160; BP diastolic 67–86; PULSE 85–112; RESP 16–23; TEMP 36.4–37.5; O2SAT 95–99; BMI 26.3
[2025-09-02 01:09] LABS: POC Glucose,Bedside 214 gm/dL (70-110)
[2025-09-02 06:17] LABS: POC Glucose,Bedside 151 gm/dL (70-110)
[2025-09-02 06:29] LABS: Hematocrit 28.8 % (42.0-52.0); Immature Granulocytes % 1.0 %; Mean Corpuscular HGB Conc 33.7 g/dL (31.8-35.4); Mean Corpuscular Hemoglobin 30.0 pg (27.0-31.2); Mean Corpuscular Volume 89.2 fl (80-94); Nucleated Red Blood Cells % 0 %; Platelet Count 302 K/mm3 (142-424); Red Blood Count 3.23 M/mm3 (4.60-6.20); Red Cell Distribution Width-SD 43.8 fL; White Blood Count 9.4 K/mm3 (4.8-10.8)
[2025-09-02 06:30] LABS: Albumin Level 2.9 g/dl (3.5-5.0); Chloride 106 mmol/L (98-107); Potassium 3.8 mmoL/L (3.5-5.1); Sodium 140 mmol/L (136-145)
[2025-09-02 06:32] LABS: Blood Urea Nitrogen 56 mg/dl (9-20)
[2025-09-02 06:33] LABS: Alanine Aminotransferase 17 U/L (12-78); Albumin/Globulin Ratio 1.0 (1.1-1.8); Alkaline Phosphatase 108 U/L (38-126); Anion Gap 12.8 mEq/L (5-15); Aspartate Amino Transferase 25 U/L (17-59); Bilirubin,Total 0.9 mg/dl (0.2-1.3); Calcium 9.4 mg/dl (8.4-10.2); Carbon Dioxide 25 mmol/L (22.0-30.0); Creatinine Clearance Estimated 38 mL/min (50-200); Creatinine,Serum 1.90 mg/dl (0.66-1.25); Estimated Glomerular Filt Rate 35 ml/min (>60); GFR (African American) 42 ML/MIN (>60); Globulin 2.9 g/dL (1.3-3.2); Glucose 146 mg/dl (74-100); Magnesium 1.9 mg/dl (1.6-2.3); Total Protein,Serum 5.8 g/dl (6.3-8.2)
[2025-09-02 06:38] LABS: Hemoglobin 9.7 g/dL (14.1-18.0)
[2025-09-02] MEDS: POLYETHYLENE GLYCOL 3350 17 GM PACKET PO (08:44)
[2025-09-02] MEDS: FAMOTIDINE 20MG TABLET 20 MG PO (08:44)
[2025-09-02] MEDS: AMIODARONE 200MG TABLET 400 MG PO ×2 (08:44→21:04)
[2025-09-02] MEDS: ALLOPURINOL 100MG TABLET 100 MG PO (08:44)
[2025-09-02 09:10] LABS: Triglycerides 119 mg/dl (30-150)
[2025-09-02 09:11] LABS: Cholesterol 141 mg/dl (140-200); HDL Cholesterol 32 mg/dl (40-60)
--- NOTE | 2025-09-02 10:54 | EXP.CARD.PN ---
Subjective Subjective Date: 09/02/25 Time: 10:00 Principal diagnosis: Bilateral PEs Interval history: This is a 75-year-old white gentleman who presented to the emergency department with altered mental status. He was found to have bilateral subocclusive PEs and underwent mechanical thrombectomy yesterday. He denies any chest pain or pressure. He denies any shortness of breath. He is complaining of left arm pain from his fracture. He denies any fever, chills, nausea, vomiting or diarrhea. Exam Data for Last 24 hours Vital signs and Labs for Last 24 Hours: Temp Pulse Resp BP Pulse Ox O2 Del Method 98.8 F 110 H 18 129/77 98 Room Air 09/02/25 06:00 09/02/25 08:00 09/02/25 08:00 09/02/25 08:00 09/02/25 08:00 09/02/25 09:00 Laboratory Results - last 24 hr 09/01/25 10:51: POC Glucose 111 H 09/01/25 16:07: POC Glucose 145 H 09/01/25 20:03: POC Glucose 149 H 09/01/25 23:06: POC Glucose 242 H 09/02/25 01:01: POC Glucose 214 H 09/02/25 05:27: WBC 9.4, RBC 3.23 L, Hgb 9.7 L D, Hct 28.8 L, MCV 89.2, MCH 30.0, MCHC 33.7, RDW 13.4, Plt Count 302, MPV 10.8 H, Neut % (Auto) 76.4, Lymph % (Auto) 11.1, [place] % (Auto) 8.2, Eos % (Auto) 2.7, Baso % (Auto) 0.6, Neut # (Auto) 7.2, Lymph # (Auto) 1.1, [place] # (Auto) 0.8, Eos # (Auto) 0.3, Baso # (Auto) 0.1, Sodium 140, Potassium 3.8, Chloride 106, Carbon Dioxide 25, Anion Gap 12.8, BUN 56 H, Creatinine 1.90 H, Estimated Creat Clear 38, Estimated GFR 35 L, Est GFR ( Amer) 42 L, Glucose 146 H, Calcium 9.4, Magnesium 1.9, Total Bilirubin 0.9, AST 25, ALT 17, Alkaline Phosphatase 108, Total Protein 5.8 L, Albumin 2.9 L, Globulin 2.9, Albumin/Globulin Ratio 1.0 L, Triglycerides 119, Cholesterol 141, LDL Cholesterol Direct 37.23 L, VLDL Cholesterol 24, HDL Cholesterol 32 L, Cholesterol/HDL Ratio 4.4 H 09/02/25 05:50: POC Glucose 151 H I & O for Last 24 hours: Intake & Output 08/30/25 08/31/25 09/01/25 09/02/25 23:59 23:59 23:59 23:59 Intake Total 703 / 703 678.00 / 678.00 225 / 225 Output Total 200 / 200 3025 / 3175 730 / 730 Balance 503 / 503 -2347.00 / -2497.00 -505 / -505 Weight 177 lb 11.081 oz 177 lb 11.081 oz 177 lb 14.609 oz Microbiology Reports for the Last 24 Hours: Microbiology 08/31/25 14:09 Urine,Clean Catch Urine Culture - Final No growth. 08/31/25 14:33 Blood Blood Culture - Preliminary NO GROWTH AFTER 24 HOURS 08/31/25 14:28 Blood Blood Culture - Preliminary NO GROWTH AFTER 24 HOURS Narrative: Echocardiogram shows: Normal LV systolic function. Septal flattening is present, consistent with right-sided pressure/volume overload. Severe RV dilation with moderate reduction in RV function. There is severe RV free wall hypokinesis with sparing of the apex (Gomez's sign). Biatrial dilation. Moderate TR. Mild PI. Markedly elevated RVSP > 60 mmHg. The ascending aorta is mildly dilated, measuring 3.8 cm in diameter. Constitutional Constitutional: no acute distress and average body habitus *Routine HEENT Exam Head: Present normocephalic and atraumatic ENT: Present mucous membranes moist *Routine Neck Exam Neck: Present supple, full ROM and normal carotid upstroke; Absent JVD, carotid bruit or lymphadenopathy *Routine Respiratory Exam Respiratory: Present CTA bilaterally, normal respiratory effort, able to speak in complete sentences and symmetric chest movement *Routine Cardiovascular Exam Cardiovascular: Present RRR, Normal S1 and Normal S2; Absent murmur or gallop *Routine Abdominal Exam Abdominal: Present soft and normoactive bowel sounds; Absent tenderness, distended or organomegaly *Routine Extremities Exam Extremities: Present full ROM, pulses intact and normal capillary refill; Absent cyanosis, clubbing or edema *Routine Skin Exam Skin: Present intact and warm; Absent erythema *Routine Neurological Exam Neurological: Present alert, oriented X3 and CN II-XII intact; Absent sensory deficit or motor deficit Routine Psychiatric Exam Psychiatric: Present normal affect Progress Note: A&P Assessment and plan (1) Pulmonary embolism with acute cor pulmonale: Status: Acute (2) Acute metabolic encephalopathy: Status: Acute (3) Sepsis due to urinary tract infection: Status: Acute (4) Closed fracture of left proximal humerus: Status: Acute (5) Gastro-esophageal reflux disease without esophagitis: Status: Acute (6) Diabetes mellitus: Status: Acute (7) CKD (chronic kidney disease), stage III: Status: Acute (8) Atrial fibrillation: Status: Acute Assessment and Plan Assessment and Plan for All Diagnoses:: Plan: 1. The patient was admitted to the hospital due to altered mental status. They are concerned that this may have occurred because of his recently increased dose of Seroquel. Will defer this to the hospitalist. 2. The patient was found to have bilateral subocclusive pulmonary emboli from the main pulmonary arteries into lobar and segmental branches of the right middle lobe and lower lobes bilaterally. There was evidence of right heart strain. The patient did undergo mechanical thrombectomy due to submassive pulmonary emboli in the right main right middle and right lower pulmonary artery with successful mechanical thrombectomy removing all visible thrombus. Submassive pulmonary embolism-the left main artery extending into the left lower pulmonary artery with successful mechanical thrombectomy moving all angiographic visible thrombus. 3. The patient will need to be on Xarelto 15 mg twice daily for 3 weeks then followed by 15 mg daily thereafter due to his renal function. 4. Echocardiogram shows normal LV function. The patient did have severe RV dilation and moderate reduction in RV function. There is severe RV free wall hypoakinesis with sparing of the apex consistent with Gomez sign. Moderate TR with markedly elevated RVSP greater than 60 mmHg. This is most likely all from his subocclusive bilateral PEs. This will likely improve now that he is status post thrombectomy. 5. His blood pressure is well-controlled. 6. His LDL goal is less than 100. LDL is 37. 7. Renal function is stable. His creatinine is 1.9 today. 8. His troponin and BNP were both elevated on admission. This is most likely from his subocclusive/submassive bilateral pulmonary emboli. No plans for invasive left cardiac catheterization at this time. The patient would benefit from an outpatient ischemic evaluation once he is discharged from the hospital and he has recovered from the PEs. 9. The patient is diabetic. He will need aggressive control of his diabetes. Will defer to the hospitalist. 10. The patient did have atrial fibrillation as well once he came into the hospital. He was started on an amiodarone drip. He is now on oral amiodarone 400 mg p.o. twice daily. He will need to be on 40 mg twice daily for 2 weeks then amiodarone 200 mg p.o. twice daily for 2 weeks then amiodarone 200 mg daily thereafter. 11. His heart rate is still slightly elevated today. Will add Toprol-XL 25 mg daily. 12. He is on anticoagulation with Xarelto. 13. No further recommendations at this time from a cardiac standpoint. The patient can be discharged home today from a cardiac standpoint with follow-up in cardiology clinic in 1 to 2 weeks on an outpatient basis. The patient will need to be discharged on the following cardiac medications: Amiodarone 400 mg p.o. twice daily x 2 weeks then amiodarone 200 mg p.o. twice daily x 2 weeks then amiodarone 200 mg daily thereafter Metoprolol XL 25 mg daily Xarelto 15 mg p.o. twice daily x 3 weeks then 15 mg daily thereafter due to his renal function Aspirin 81 mg daily Thank you for the opportunity to help participate in the care of this patient. All recommendations and orders are per Dr. Pereira.
[2025-09-02 11:15] LABS: POC Glucose,Bedside 193 gm/dL (70-110)
[2025-09-02] MEDS: humaLOG 100 UNITS/ML 10ML VIAL (SSI) SUBCUT ×2 (12:00→21:14)
[2025-09-02] MEDS: METOPROLOL SUCCINATE XL 25MG TABLET 25 MG PO (12:11)
--- NOTE | 2025-09-02 12:42 | ECG_ITS ---
APPROVED REPORT Exam: Resting ECG HR:103 bpm ECG Measurements Heart Rate 103 AXES QRSd 137 QRS 89 QT 384 T 2 QTc 443 Conclusion UNCERTAIN REGULAR RHYTHM RIGHT BUNDLE BRANCH BLOCK [120+ ms QRS DURATION, UPRIGHT V1, 40+ ms S IN I/aVL/V4/V5/V6] CRITICAL TEST RESULT UNCONFIRMED REPORT Electronically signed by : Weston Wolf MD 09/02/2025 15:54:19
--- NOTE | 2025-09-02 12:44 | PC.NURSE ---
Milena at bedside to feed patient, pt grimaced. Milena asked patient if he was hurting when patient replied in my chest. Shameka Hernandez APRN notified. EKG and troponin obtained. pt medicated per jan for pain.
[2025-09-02] MEDS: ACETAMINOPHEN 325MG TAB 650 MG PO (12:47)
--- NOTE | 2025-09-02 13:21 | PC.NURSE ---
Dr. Rice at bedside speaking with family regarding plan of care.
[2025-09-02 13:27] LABS: Troponin I 0.05 ng/ml (0.00-0.034)
--- NOTE | 2025-09-02 13:48 | PC.NURSE ---
Patient bladder scanned at this time. >246 in bladder. notified. Primary RN notified. Continuation of care plan.
--- NOTE | 2025-09-02 14:54 | PC.NURSE ---
report called to Nadja at [facility]. EMS called and spoke with Ruben regarding transport to [facility], instructed truck out of town but will be here once they are back in [facility].
--- NOTE | 2025-09-02 14:54 | PC.NURSE ---
report called to Rhiannon at [facility]. EMS called and spoke with Ruben regarding transport to [facility], instructed truck out of town but will be here once they are back in [facility].
--- NOTE | 2025-09-02 15:06 | PC.NURSE ---
spoke with Dr. Rice who states pt is not being discharged at this time. verbal order given to bladder scan at 1800 if >500 ml anchor f/c.
--- NOTE | 2025-09-02 15:06 | EXP.ACUTE.PN ---
Subjective *Date: 09/02/25 *Time: 19:37 Interval history: Somewhat more alert today. Answering questions appropriately. Still not quite to baseline. Planning to decrease Seroquel. Stable on room air. Unable to void after Michael was removed. Medical Exam Vital signs and Labs for Last 24 Hours: Vital Signs Temp Pulse Pulse Resp BP BP Pulse Ox 09/02/25 13:00 09/02/25 12:00 102 H 09/02/25 11:54 104 H 16 154/83 H 97 09/02/25 11:13 98.3 F 09/02/25 11:00 09/02/25 10:00 20 09/02/25 09:00 136/67 09/02/25 09:00 99.1 F 108 H 23 96 09/02/25 09:00 09/02/25 08:46 99.1 F 111 H 22 98 09/02/25 08:46 122/72 09/02/25 08:30 113/82 09/02/25 08:30 99.1 F 112 H 21 98 09/02/25 08:00 110 H 18 129/77 98 09/02/25 08:00 110 H 09/02/25 07:55 09/02/25 07:00 09/02/25 06:00 98.8 F 103 H 20 125/69 98 09/02/25 05:00 09/02/25 04:00 96 H 09/02/25 04:00 99.0 F 97 H 22 124/70 97 09/02/25 03:00 09/02/25 02:00 99.5 F 94 H 20 128/85 96 09/02/25 02:00 09/02/25 01:00 09/02/25 00:00 96 H 09/02/25 00:00 99.3 F 97 H 16 141/86 H 99 09/01/25 23:00 09/01/25 22:00 99.3 F 93 H 16 143/89 H 97 09/01/25 21:00 99.0 F 92 H 18 128/66 99 09/01/25 21:00 09/01/25 20:00 98.8 F 100 H 18 135/85 97 09/01/25 20:00 96 H 09/01/25 20:00 09/01/25 19:00 98.6 F 96 H 17 141/87 H 98 09/01/25 18:45 09/01/25 18:00 98.8 F 85 16 139/86 97 09/01/25 17:00 09/01/25 16:25 84 16 142/86 H 98 09/01/25 16:00 83 09/01/25 15:25 98.6 F 74 15 135/76 97 O2 Del Method 09/02/25 13:00 Room Air 09/02/25 12:00 09/02/25 11:54 Room Air 09/02/25 11:13 09/02/25 11:00 Room Air 09/02/25 10:00 09/02/25 09:00 09/02/25 09:00 09/02/25 09:00 Room Air 09/02/25 08:46 09/02/25 08:46 09/02/25 08:30 09/02/25 08:30 09/02/25 08:00 Room Air 09/02/25 08:00 09/02/25 07:55 Room Air 09/02/25 07:00 Room Air 09/02/25 06:00 Room Air 09/02/25 05:00 Room Air 09/02/25 04:00 09/02/25 04:00 Room Air 09/02/25 03:00 Room Air 09/02/25 02:00 Room Air 09/02/25 02:00 Room Air 09/02/25 01:00 Room Air 09/02/25 00:00 09/02/25 00:00 Room Air 09/01/25 23:00 Room Air 09/01/25 22:00 Room Air 09/01/25 21:00 Room Air 09/01/25 21:00 Room Air 09/01/25 20:00 Room Air 09/01/25 20:00 09/01/25 20:00 Room Air 09/01/25 19:00 Room Air 09/01/25 18:45 Room Air 09/01/25 18:00 Room Air 09/01/25 17:00 Room Air 09/01/25 16:25 Room Air 09/01/25 16:00 09/01/25 15:25 Room Air Intake and Output 09/01/25 09/02/25 09/02/25 23:59 07:59 15:59 Intake Total 470.82 / 688.417 345 / 345 Output Total 850 / 3175 400 / 730 330 / 730 Balance -379.18 / -2486.583 -400 / -385 15 / -385 Intake: Intake, Oral Amount 60 / 60 345 / 345 Intake, Total IV Amount 410.82 / 628.417 Amiodarone HCl 900 mg In 310.82 / 518.00 Dextrose 5 % in Water 500 ml @ 1 MG/MIN 34.533 mls/hr IV . Q15H1M [facility] Rx#:[id number] Ceftriaxone Sodium 2 gm In 0.9 100 / 100 % Sodium Chloride 100 ml @ 200 mls/hr IV Q24H [facility] Rx#:[id number] Output: Output, Urine Amount 700 / 925 100 / 100 Output, Urine Amount (Catheter) 150 / 2250 300 / 630 330 / 630 Michael 150 / 2250 300 / 630 330 / 630 Other: Number of Unmeasured Voids 0 0 0 Number of Bowel Movements 1 Weight 80.7 kg Patient Weight 09/02/25 23:59 Weight 80.7 kg Laboratory Results - last 24 hr 09/01/25 16:07: POC Glucose 145 H 09/01/25 20:03: POC Glucose 149 H 09/01/25 23:06: POC Glucose 242 H 09/02/25 01:01: POC Glucose 214 H 09/02/25 05:27: WBC 9.4, RBC 3.23 L, Hgb 9.7 L D, Hct 28.8 L, MCV 89.2, MCH 30.0, MCHC 33.7, RDW 13.4, Plt Count 302, MPV 10.8 H, Neut % (Auto) 76.4, Lymph % (Auto) 11.1, Bland % (Auto) 8.2, Eos % (Auto) 2.7, Baso % (Auto) 0.6, Neut # (Auto) 7.2, Lymph # (Auto) 1.1, Bland # (Auto) 0.8, Eos # (Auto) 0.3, Baso # (Auto) 0.1, Sodium 140, Potassium 3.8, Chloride 106, Carbon Dioxide 25, Anion Gap 12.8, BUN 56 H, Creatinine 1.90 H, Estimated Creat Clear 38, Estimated GFR 35 L, Est GFR ( Amer) 42 L, Glucose 146 H, Calcium 9.4, Magnesium 1.9, Total Bilirubin 0.9, AST 25, ALT 17, Alkaline Phosphatase 108, Total Protein 5.8 L, Albumin 2.9 L, Globulin 2.9, Albumin/Globulin Ratio 1.0 L, Triglycerides 119, Cholesterol 141, LDL Cholesterol Direct 37.23 L, VLDL Cholesterol 24, HDL Cholesterol 32 L, Cholesterol/HDL Ratio 4.4 H 09/02/25 05:50: POC Glucose 151 H 09/02/25 11:08: POC Glucose 193 H 09/02/25 12:53: Troponin I 0.05 H I & O for Labs for Last 24 Hours: Intake & Output 08/30/25 08/31/25 09/01/25 09/02/25 23:59 23:59 23:59 23:59 Intake Total 703 / 703 688.417 / 688.417 345 / 345 Output Total 200 / 200 3025 / 3175 730 / 730 Balance 503 / 503 -2336.583 / -2486.583 -385 / -385 Weight 80.6 kg 80.6 kg 80.7 kg Microbiology Reports for the Last 24 Hours: Microbiology 08/31/25 14:28 Blood Blood Culture - Preliminary NO GROWTH AFTER 48 HOURS 08/31/25 14:33 Blood Blood Culture - Preliminary NO GROWTH AFTER 48 HOURS 08/31/25 14:09 Urine,Clean Catch Urine Culture - Final No growth. Constitutional: Present no acute distress, average body habitus, chronically ill appearing and cooperative Head: Present atraumatic and normocephalic Respiratory: Absent rhonchi, wheezes or crackles Cardiac: Present Tachycardia GI: Present soft; Absent distention Comment:: Left arm in sling, tender to palpation around shoulder Neuro: Present Grossly Intact, alert, awake and moves all extremities Comment:: Oriented to self Assessment and Plan *Assessment and plan (1) Pulmonary embolism with acute cor pulmonale: Status: Acute Qualifiers: Chronicity: acute Pulmonary embolism type: unspecified Qualified Code(s): I26.09 - Other pulmonary embolism with acute cor pulmonale Category: Medical Code(s): I26.09 - Other pulmonary embolism with acute cor pulmonale (2) Acute metabolic encephalopathy: Status: Ruled-out Category: Medical Code(s): G93.41 - Metabolic encephalopathy (3) Sepsis due to urinary tract infection: Status: Ruled-out Category: Medical Code(s): A41.9 - Sepsis, unspecified organism; N39.0 - Urinary tract infection, site not specified (4) Closed fracture of left proximal humerus: Status: Acute Qualifiers: Encounter type: sequela Category: Medical Code(s): S42.202A - Unspecified fracture of upper end of left humerus, initial encounter for closed fracture (5) Gastro-esophageal reflux disease without esophagitis: Status: Acute Category: Medical Code(s): K21.9 - Gastro-esophageal reflux disease without esophagitis (6) Diabetes mellitus: Status: Acute Qualifiers: Diabetes mellitus complication status: without complication Diabetes mellitus custodial insulin use: without keno terminal operator use Diabetes mellitus type: type 2 Qualified Code(s): E11.9 - Type 2 diabetes mellitus without complications Category: Medical Code(s): E11.9 - Type 2 diabetes mellitus without complications (7) CKD (chronic kidney disease), stage III: Status: Acute Qualifiers: Chronic kidney disease stage 3 subtype: unspecified whether 3a or 3b Qualified Code(s): N18.30 - Chronic kidney disease, stage 3 unspecified Category: Medical Code(s): N18.30 - Chronic kidney disease, stage 3 unspecified Plan 75-year-old who presented with worsening confusion. Found to have UTI. Concern for metabolic cephalopathy secondary to infection. Also found to have bilateral submassive PEs with right heart strain. Taken to [facility] for thrombectomy today. Cardiology assisting with care. DC antibiotics for UTI. Continues to require inpatient management. Problems addressed as follows: #Pulmonary embolism with acute cor pulmonale # Atrial flutter CT imaging with subocclusive pulmonary embolus to the right lobar middle and lower lobes with evidence of right heart strain. - Echo obtained today with the following: Normal LV systolic function, septal flattening is present consistent with right-sided pressure volume overload. Severe RV dilation with moderate reduction in RV function. Markedly elevated RVSP greater than 60 mmHg. - Thrombectomy performed. Submassive PE in the right main right middle and right lower pulmonary artery successfully removed. Also removed submassive pulmonary emboli in the left main pulmonary artery extending into the left lower pulmonary artery. Patient had improvement and hemodynamics with improvement in heart rate shortly after procedure - continue Xarelto 15 mg twice daily for 3 weeks followed by 15 mg a day thereafter based on renal function - proBNP elevated at 880 - continue amiodarone 400 mg twice daily. - PESI Score of 133 - Discussed case with cardiology, will monitor after initiation of anticoagulation orally. If doing well tomorrow, consider discharge back to his facility. - Continue telemetry #Sepsis due to urinary tract infection, ruled out Met SIRS criteria for leukocytosis, tachycardia and urinalysis with WBCs and +3 bacteria Blood cultures remain negative DC antibiotics #Acute toxic encephalopathy Likely multifactorial given holloway meds and increased Seroquel dosing Orientation improving, Continue with daily reorientation. Treating infection as above. Monitor for improvement. 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 Creatinine stable at 1.9, BUN 56, repeat CBC, CMP, magnesium ordered for the morning #Left humeral fracture Subacute. Was seen 3 days ago for fall and treated nonoperatively Continue left upper extremity sling and swath Continue oral pain medications Urinary retention: catheter removed this morning, unfortunately unable to void, needed to replace catheter. Will DC with michael and refer to urology as outpt. Full code DVT PPx on therapeutic Lovenox Diabetic diet
--- NOTE | 2025-09-02 15:19 | PC.NURSE ---
Called and updated pt's daughter Power on POC.
--- NOTE | 2025-09-02 15:34 | PC.NURSE ---
report called to Iqra Pugh RN
--- NOTE | 2025-09-02 16:00 | PC.NURSE ---
arrived to floor from ICU by bed
--- NOTE | 2025-09-02 16:07 | PC.NURSE ---
patient left the ICU via bed @1600 to [facility] room 203
[2025-09-02 16:20] LABS: POC Glucose,Bedside 170 gm/dL (70-110)
--- NOTE | 2025-09-02 19:36 | PC.NURSE ---
AT 1800 PT HAD NOT VOIDED. PT WAS BLADDER SCANNED 459 ML'S NOTED. NOTIFIED HOSPITALIST. 16 F NELSON INSERTED (300 ML'S DARK CANELO URINE EMPTIED FROM CATHETER BAG).
[2025-09-02] MEDS: QUETIAPINE 25MG TABLET 12.5 MG PO (21:04)
[2025-09-02] MEDS: TAMSULOSIN 0.4MG CAPSULE 0.4 MG PO (21:04)
--- NOTE | 2025-09-02 21:39 | PC.NURSE ---
patient gave additional warm blankets and thermostat heat turned up to comfort - ate a cup of applesauce after taking crushed medications. patient aware he is in [place], but unable to answer other orientation questions, this is patient baseline.
--- NOTE | 2025-09-02 21:41 | PC.NURSE ---
RFA IV removed
[2025-09-03] VITALS: BP 166/94; PULSE 90; PULSE 95; RESP 16; TEMP 37.4; O2SAT 96
[2025-09-03 04:00] VITALS: BP 153/81; PULSE 85; PULSE 88; RESP 18; TEMP 36.6; O2SAT 98; BMI 26.0
[2025-09-03 05:43] LABS: POC Glucose,Bedside 191 gm/dL (70-110)
[2025-09-03 06:22] LABS: POC Glucose,Bedside 173 gm/dL (70-110)
[2025-09-03] MEDS: humaLOG 100 UNITS/ML 10ML VIAL (SSI) SUBCUT ×2 (06:30→11:27)
[2025-09-03 06:34] LABS: Hematocrit 28.2 % (42.0-52.0); Hemoglobin 9.1 g/dL (14.1-18.0); Immature Granulocytes % 3.2 %; Mean Corpuscular HGB Conc 32.3 g/dL (31.8-35.4); Mean Corpuscular Hemoglobin 29.7 pg (27.0-31.2); Mean Corpuscular Volume 92.2 fl (80-94); Nucleated Red Blood Cells % 0 %; Platelet Count 316 K/mm3 (142-424); Red Blood Count 3.06 M/mm3 (4.60-6.20); Red Cell Distribution Width-SD 46.5 fL; White Blood Count 9.8 K/mm3 (4.8-10.8)
[2025-09-03 06:45] LABS: Chloride 108 mmol/L (98-107)
[2025-09-03 06:46] LABS: Albumin Level 3.0 g/dl (3.5-5.0); Potassium 3.8 mmoL/L (3.5-5.1); Sodium 141 mmol/L (136-145)
[2025-09-03 06:49] LABS: Alanine Aminotransferase 18 U/L (12-78); Albumin/Globulin Ratio 1.0 (1.1-1.8); Alkaline Phosphatase 120 U/L (38-126); Anion Gap 10.8 mEq/L (5-15); Aspartate Amino Transferase 27 U/L (17-59); Bilirubin,Total 1.0 mg/dl (0.2-1.3); Blood Urea Nitrogen 50 mg/dl (9-20); Calcium 9.4 mg/dl (8.4-10.2); Carbon Dioxide 26 mmol/L (22.0-30.0); Creatinine Clearance Estimated 42 mL/min (50-200); Creatinine,Serum 1.70 mg/dl (0.66-1.25); Estimated Glomerular Filt Rate 39 ml/min (>60); GFR (African American) 48 ML/MIN (>60); Globulin 2.9 g/dL (1.3-3.2); Glucose 169 mg/dl (74-100); Total Protein,Serum 5.9 g/dl (6.3-8.2)
[2025-09-03 08:00] VITALS: BP 143/78; PULSE 76; PULSE 90; RESP 18; TEMP 36.6; O2SAT 97
[2025-09-03] MEDS: POLYETHYLENE GLYCOL 3350 17 GM PACKET PO (09:08)
[2025-09-03] MEDS: ALLOPURINOL 100MG TABLET 100 MG PO (09:08)
[2025-09-03] MEDS: FAMOTIDINE 20MG TABLET 10 MG PO (09:09)
[2025-09-03] MEDS: METOPROLOL SUCCINATE XL 25MG TABLET 25 MG PO (09:09)
[2025-09-03] MEDS: AMIODARONE 200MG TABLET 400 MG PO (09:09)
[2025-09-03 12:00] VITALS: BP 152/94; PULSE 98; RESP 18; TEMP 36.9; O2SAT 97
[2025-09-03 12:03] VITALS: PULSE 90
--- NOTE | 2025-09-03 12:33 | EXP.DC.SUM ---
General Admission date:: 08/31/25 Discharge date: 09/02/25 HPI HPI HPI: This is a 75-year-old male with a past medical history of CKD, BPH, GERD, hypertension, DM2 resides in SNF increased confusion today. Was seen by Dr. Riec today and was noticed to have increased confusion while trying to put on his shirt. There was some questionable dysuria as patient could not give a complete ROS secondary to confusion. At time of his assessment he was conversant and appropriate responses and daughter was present for the visit. He has had recent issues with sensation of food being stuck in his esophagus while swallowing. Has a Holter monitor in place with close follow-up with cardiology.'s. Today he was sent to the emergency department for increased confusion that was attributed to possible increased Seroquel doses given continued confusion it was felt that he would benefit from further evaluation. Of note, left humeral fracture on 08/28/2025 that is nonoperative [facility] emergency department workup was obtained and subsequently patient was noted to have leukocytosis with white count of 12.2, stable CKD. UA positive for bacteria and white blood cells. CT imaging notable for bilateral subocclusive pulmonary emboli from the main pulmonary artery into the lobar and segmental branches of the right middle lobe and right lower lobe with evidence of heart strain. Dr. Muñoz was consulted in the emergency department and recommended therapeutic Lovenox and admission to the hospital with likely thrombectomy in AM. Hospital Course Hospital Course Hospital Course: 75-year-old who presented with worsening confusion. Found to have UTI. Concern for metabolic cephalopathy secondary to infection. Also found to have bilateral submassive PEs with right heart strain. Taken to [facility] for thrombectomy today. Cardiology assisting with care. Initiated on antibiotics for UTI. Taken for thrombectomy of PEs on 09/01. Achieved good results. Remained stable on room air. Heart rate showing improvement. Stable discharge back to [facility] for further management. Problems addressed as follows: #Pulmonary embolism with acute cor pulmonale # Atrial flutter CT imaging with subocclusive pulmonary embolus to the right lobar middle and lower lobes with evidence of right heart strain. Echo obtained morning of 09/01 with the following: Normal LV systolic function, septal flattening is present consistent with right-sided pressure volume overload. Severe RV dilation with moderate reduction in RV function. Markedly elevated RVSP greater than 60 mmHg. Thrombectomy performed. Submassive PE in the right main right middle and right lower pulmonary artery successfully removed. Also removed submassive pulmonary emboli in the left main pulmonary artery extending into the left lower pulmonary artery. Patient had improvement and hemodynamics with improvement in heart rate shortly after procedure. Initiated on Xarelto. Continue 50 mg twice daily for 3 weeks. Transition to 15 mg daily thereafter based on renal function. Loaded with amiodarone due to a flutter. Transition to 400 mg twice daily. - Cardiology consulted during admission. Recommend continuing amiodarone 400 mg twice daily for 2 weeks then 200 mg twice daily for 2 weeks then 200 mg daily thereafter. Metoprolol succinate 25 mg daily, Xarelto as stated above. Aspirin 81 mg daily. #Sepsis due to urinary tract infection, ruled out Meets SIRS criteria for leukocytosis, tachycardia and urinalysis with WBCs and +3 bacteria. Urine culture ultimately negative. Suspect SIRS secondary to PE. Will discontinue antibiotics at discharge. No indication for further antibiotics. #Acute metabolic encephalopathy Likely multifactorial given suspected UTI but also increased Seroquel dosing. Also has been on oxycodone for left upper extremity fracture. Given negative urine culture, suspect medications with underlying dementia exacerbating his mentation causing toxic encephalopathy. Orientation improving. Still not quite back to baseline. Caution with sedating medications. Okay to discharge back to familiar facility where his is. 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 Treated with sliding scale insulin and fingersticks ACHS. Okay to resume at discharge. Kidney function stable. BUN 1.9, creatinine 5.6 on morning of discharge. Needs repeat CBC, CMP, A1c in 1 week #Left humeral fracture Subacute. Was seen 3 days ago for fall and treated nonoperatively. Continue left upper extremity sling and swath. Continue oral pain medications as needed for severe pain. Consider weaning opiates Total time spent on discharge 34 minutes in counseling, documentation, chart review, and direct care with patient. Exam Data for Last 24 hours Vital signs and Labs for Last 24 Hours: Temp Pulse Resp BP Pulse Ox O2 Del Method 98.8 F 110 H 18 129/77 98 Room Air 09/02/25 06:00 09/02/25 08:00 09/02/25 08:00 09/02/25 08:00 09/02/25 08:00 09/02/25 08:00 Laboratory Results - last 24 hr 09/01/25 10:51: POC Glucose 111 H 09/01/25 16:07: POC Glucose 145 H 09/01/25 20:03: POC Glucose 149 H 09/01/25 23:06: POC Glucose 242 H 09/02/25 01:01: POC Glucose 214 H 09/02/25 05:27: WBC 9.4, RBC 3.23 L, Hgb 9.7 L D, Hct 28.8 L, MCV 89.2, MCH 30.0, MCHC 33.7, RDW 13.4, Plt Count 302, MPV 10.8 H, Neut % (Auto) 76.4, Lymph % (Auto) 11.1, Tyler % (Auto) 8.2, Eos % (Auto) 2.7, Baso % (Auto) 0.6, Neut # (Auto) 7.2, Lymph # (Auto) 1.1, Tyler # (Auto) 0.8, Eos # (Auto) 0.3, Baso # (Auto) 0.1, Sodium 140, Potassium 3.8, Chloride 106, Carbon Dioxide 25, Anion Gap 12.8, BUN 56 H, Creatinine 1.90 H, Estimated Creat Clear 38, Estimated GFR 35 L, Est GFR ( Amer) 42 L, Glucose 146 H, Calcium 9.4, Magnesium 1.9, Total Bilirubin 0.9, AST 25, ALT 17, Alkaline Phosphatase 108, Total Protein 5.8 L, Albumin 2.9 L, Globulin 2.9, Albumin/Globulin Ratio 1.0 L 09/02/25 05:50: POC Glucose 151 H I & O for Last 24 hours: Intake & Output 08/30/25 08/31/25 09/01/25 09/02/25 23:59 23:59 23:59 23:59 Intake Total 703 / 703 678.00 / 678.00 225 / 225 Output Total 200 / 200 3025 / 3175 400 / 400 Balance 503 / 503 -2347.00 / -2497.00 -175 / -175 Weight 80.6 kg 80.6 kg 80.7 kg Microbiology Reports for the Last 24 Hours: Microbiology 08/31/25 14:33 Blood Blood Culture - Preliminary NO GROWTH AFTER 24 HOURS 08/31/25 14:28 Blood Blood Culture - Preliminary NO GROWTH AFTER 24 HOURS Constitutional Constitutional: no acute distress, average body habitus, chronically ill appearing and cooperative *Routine HEENT Exam Head: Present normocephalic Eye: Present EOMI and PERRL ENT: Present mucous membranes moist *Routine Neck Exam Neck: Present supple; Absent lymphadenopathy *Routine Respiratory Exam Respiratory: Present CTA bilaterally; Absent respiratory distress, stridor or wheezes *Routine Cardiovascular Exam Cardiovascular: Present RRR *Routine Abdominal Exam Abdominal: Present soft and normoactive bowel sounds; Absent tenderness *Routine Rectal Exam Patient deferred: visual exam *Routine Exam Patient deferred: penile exam *Routine Extremities Exam Extremities: Absent cyanosis, clubbing or edema Comments: Left arm in sling. *Routine Skin Exam Skin: Present intact and warm; Absent rash *Routine Neurological Exam Neurological: Present alert and moving all extremities Comments: Oriented to self. Answers questions appropriately. Results Data Completed and Pending Labs on day of discharge: Labs from last 24 hours 09/02/25 09/02/25 09/02/25 05:50 05:27 01:01 WBC 9.4 RBC 3.23 L Hgb 9.7 L D Hct 28.8 L MCV 89.2 MCH 30.0 MCHC 33.7 RDW 13.4 Plt Count 302 MPV 10.8 H Neut % (Auto) 76.4 Lymph % (Auto) 11.1 Tyler % (Auto) 8.2 Eos % (Auto) 2.7 Baso % (Auto) 0.6 Neut # (Auto) 7.2 Lymph # (Auto) 1.1 Tyler # (Auto) 0.8 Eos # (Auto) 0.3 Baso # (Auto) 0.1 Sodium 140 Potassium 3.8 Chloride 106 Carbon Dioxide 25 Anion Gap 12.8 BUN 56 H Creatinine 1.90 H Estimated Creat Clear 38 Estimated GFR 35 L Est GFR ( Amer) 42 L Glucose 146 H POC Glucose 151 H 214 H Calcium 9.4 Magnesium 1.9 Total Bilirubin 0.9 AST 25 ALT 17 Alkaline Phosphatase 108 Total Protein 5.8 L Albumin 2.9 L Globulin 2.9 Albumin/Globulin Ratio 1.0 L 09/01/25 09/01/25 09/01/25 23:06 20:03 16:07 WBC RBC Hgb Hct MCV MCH MCHC RDW Plt Count MPV Neut % (Auto) Lymph % (Auto) Tyler % (Auto) Eos % (Auto) Baso % (Auto) Neut # (Auto) Lymph # (Auto) Tyler # (Auto) Eos # (Auto) Baso # (Auto) Sodium Potassium Chloride Carbon Dioxide Anion Gap BUN Creatinine Estimated Creat Clear Estimated GFR Est GFR ( Amer) Glucose POC Glucose 242 H 149 H 145 H Calcium Magnesium Total Bilirubin AST ALT Alkaline Phosphatase Total Protein Albumin Globulin Albumin/Globulin Ratio 09/01/25 10:51 WBC RBC Hgb Hct MCV MCH MCHC RDW Plt Count MPV Neut % (Auto) Lymph % (Auto) Tyler % (Auto) Eos % (Auto) Baso % (Auto) Neut # (Auto) Lymph # (Auto) Tyler # (Auto) Eos # (Auto) Baso # (Auto) Sodium Potassium Chloride Carbon Dioxide Anion Gap BUN Creatinine Estimated Creat Clear Estimated GFR Est GFR ( Amer) Glucose POC Glucose 111 H Calcium Magnesium Total Bilirubin AST ALT Alkaline Phosphatase Total Protein Albumin Globulin Albumin/Globulin Ratio Preliminary micro results at discharge 08/31/25 14:33 Blood Culture - Preliminary Blood NO GROWTH AFTER 24 HOURS 08/31/25 14:28 Blood Culture - Preliminary Blood NO GROWTH AFTER 24 HOURS DS: Diagnosis Discharge Diagnosis (1) Pulmonary embolism with acute cor pulmonale: Status: Acute Code(s): I26.09 - Other pulmonary embolism with acute cor pulmonale Qualifiers: Chronicity: acute Pulmonary embolism type: unspecified Qualified Code(s): I26.09 - Other pulmonary embolism with acute cor pulmonale (2) Acute metabolic encephalopathy: Status: Ruled-out Code(s): G93.41 - Metabolic encephalopathy (3) Sepsis due to urinary tract infection: Status: Ruled-out Code(s): A41.9 - Sepsis, unspecified organism; N39.0 - Urinary tract infection, site not specified (4) Closed fracture of left proximal humerus: Status: Acute Code(s): S42.202A - Unspecified fracture of upper end of left humerus, initial encounter for closed fracture Qualifiers: Encounter type: sequela (5) Gastro-esophageal reflux disease without esophagitis: Status: Acute Code(s): K21.9 - Gastro-esophageal reflux disease without esophagitis (6) Diabetes mellitus: Status: Acute Code(s): E11.9 - Type 2 diabetes mellitus without complications Qualifiers: Diabetes mellitus complication status: without complication 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Instructions ?Recorded ?Confirmed ?Type glipizide 10 mg tablet, extended 10 mg PO DAILY 07/25/25 08/31/25 History release 24 hr tamsulosin 0.4 mg capsule 0.4 mg PO HS 07/25/25 09/01/25 History hydrocortisone 1 % topical cream 1 applic topical TIDP PRN itching 07/26/25 09/01/25 History (Anti-Itch (hydrocortisone)) nystatin 100,000 unit/gram topical 1 applic topical TID 07/26/25 08/31/25 History powder pioglitazone 15 mg tablet 15 mg PO DAILY 07/26/25 08/31/25 History polyethylene glycol 3350 17 17 g PO DAILY 07/26/25 08/31/25 History gram/dose oral powder (Miralax) acetaminophen 325 mg tablet 650 mg PO Q6HP PRN Mild Pain 08/04/25 09/01/25 History (Scale Score 1-4) allopurinol 100 mg tablet 100 mg PO DAILY 08/04/25 08/31/25 History docusate sodium 100 mg capsule 100 mg PO BID 08/04/25 08/31/25 History famotidine 20 mg tablet 20 mg PO DAILY 08/04/25 08/31/25 History ondansetron 4 mg disintegrating 4 mg PO Q8HP PRN nausea 08/04/25 09/01/25 History tablet aspirin 81 mg tablet 81 mg PO DAILY 08/31/25 08/31/25 History hydrocodone 5 mg-acetaminophen 325 1 tab PO Q6HP PRN Moderate Pain 09/01/25 09/01/25 History mg tablet (Scale Score 5-6) quetiapine 25 mg tablet 25 mg PO HS 09/01/25 09/01/25 History amiodarone 200 mg tablet 400 mg (2 x 200 mg) PO BID 30 days 09/02/25 Rx #120 tabs metoprolol succinate 25 mg 25 mg PO DAILY 30 days #30 tabs 09/02/25 Rx tablet,extended release 24 hr rivaroxaban 15 mg tablet (Xarelto) 15 mg PO BIDWMEAL 30 days #60 tabs 09/02/25 Rx New Prescriptions to Start Prescriptions: Shivam Walters metoprolol succinate Shivam Rice rivaroxaban [Xarelto] Shivam Rice Allergies Allergy/AdvReac Type Severity Reaction Status Date / Time No Known Drug Allergies Allergy Verified 08/20/25 22:33 Discharge Plan Disposition Patient Disposition: er Intermediate Care Fac Condition: Fair Discharge Order Discharge Orders: Discharge Order (Routine); Ordered 09/02/25 Ordered By: Shivam Rice Follow up Plan Follow up with: Mark Muñoz MD [Staff Physician, Cardiology] - Enter time for follow up Prescriptions/Medication Reconciliation: New amiodarone 200 mg Tablet 400 mg PO BID 30 Days Qty: 120 0RF metoprolol succinate 25 mg Tablet Extended Release 24 Hr 25 mg PO DAILY 30 Days Qty: 30 0RF Xarelto 15 mg Tablet 15 mg PO BIDWMEAL 30 Days Qty: 60 0RF Continued acetaminophen 325 mg tablet 650 mg PO Q6HP PRN (Reason: Mild Pain (Scale Score 1-4)) docusate sodium 100 mg capsule 100 mg PO BID ondansetron 4 mg tablet,disintegrating 4 mg PO Q8HP PRN (Reason: nausea) famotidine 20 mg tablet 20 mg PO DAILY allopurinol 100 mg tablet 100 mg PO DAILY nystatin 100,000 unit/gram powder 1 applic topical TID polyethylene glycol 3350 [Miralax] 17 gram/dose powder 17 g PO DAILY hydrocortisone [Anti-Itch (HC)] 1 % cream 1 applic topical TIDP PRN (Reason: itching) pioglitazone 15 mg tablet 15 mg PO DAILY glipizide 10 mg tablet extended release 24hr 10 mg PO DAILY tamsulosin 0.4 mg capsule 0.4 mg PO HS aspirin 81 mg Tablet 81 mg PO DAILY quetiapine 25 mg Tablet 25 mg PO HS hydrocodone-acetaminophen 5-325 mg tablet 1 tab PO Q6HP PRN (Reason: Moderate Pain (Scale Score 5-6)) Problem Reconciliation Problems Reviewed?: Yes Patient Discharge Instructions ACTIVITY: Continue current activity DIET: continue same diet Patient Instructions: DI for Pulmonary Embolism, DI for Urinary Tract Infection (UTI), DI for Sepsis in Adults Print Language: Albanian Providers Primary Care Provider: Provider,Referral Admit Provider: Hank Hernandez Attending Provider: Hank Hernandez
[2025-09-05 12:13] LABS: POC Glucose,Bedside 181 gm/dL (70-110)
== END 2025-09-03 13:48 | DRG 163 ==
LOC: ER 15:14 → 2ND 17:05 → ICU 09-01 00:35 → 2ND 09-01 14:51 → ICU 09-01 14:51 → 2ND 09-02 15:20
PROVIDERS: Internal Medicine; Internal Medicine Adolescent Medicine; Nurse Practitioner; Nurse Practitioner Acute Care; Nurse Practitioner Family; Admitting Provider Student in an Organized Health Care Education/Training Program; Emergency Provider Student in an Organized Health Care Education/Training Program; Visit Provider Student in an Organized Health Care Education/Training Program
PROC: 02CR3ZZ Extirpation of Matter from Left Pulmonary Artery, Percutaneous Approach (ICD-10-PCS; principal; 2025-09-01 11:15)
DX: I26.09 Other pulmonary embolism with acute cor pulmonale (principal); G92.8 Other toxic encephalopathy; S42.212A Unspecified displaced fracture of surgical neck of left humerus, initial encounter for closed fracture; I48.92 Unspecified atrial flutter; R65.10 Systemic inflammatory response syndrome (SIRS) of non-infectious origin without acute organ dysfunction; E11.22 Type 2 diabetes mellitus with diabetic chronic kidney disease; N18.32 Chronic kidney disease, stage 3b; K21.9 Gastro-esophageal reflux disease without esophagitis; N40.1 Benign prostatic hyperplasia with lower urinary tract symptoms; R33.8 Other retention of urine; I12.9 Hypertensive chronic kidney disease with stage 1 through stage 4 chronic kidney disease, or unspecified chronic kidney disease; M15.0 Primary generalized (osteo)arthritis; G47.33 Obstructive sleep apnea (adult) (pediatric); F03.90 Unspecified dementia, unspecified severity, without behavioral disturbance, psychotic disturbance, mood disturbance, and anxiety; T43.595A Adverse effect of other antipsychotics and neuroleptics, initial encounter; S81.812A Laceration without foreign body, left lower leg, initial encounter; W18.30XA Fall on same level, unspecified, initial encounter; Z79.82 Long term (current) use of aspirin; Z79.84 Long term (current) use of oral hypoglycemic drugs
CPT/HCPCS: 34490; 36415; 51702; 51798; 70450; 71045; 71275; 80048; 80053; 80061; 80307; 81001; 82803; 82962; 83735; 83880; 84484; 85025; 87040; 87086; 93005; 93306; 93970; 97162; 97166; 99152; 99153; 99285; C1725; C1757; C1769; C1894; J0282; J0696; J1160; J1200; J1644; J1650; J2003; J2250; J2270; J2405; J3010; J7040; J7060; J7120; Q9967